=== PATIENT | male | born 1955 | race Caucasian/White ===

== ENCOUNTER 2017-04-05 11:31 | Inpatient (IN) | payer OTHER ==
[~2017-04-05] VITALS: Ht 165.1 cm; Wt 95.0 kg
[2017-04-05] MEDS ORDERED: NITROGLYCERIN 2% 1 GM OINT PKT TD STA (12:20)
[2017-04-05] MEDS ORDERED: ASPIRIN 81 MG TAB PO STA (12:20)
--- NOTE | 2017-04-05 12:20 | ERD ---
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 Patient has history of hypertension hyperlipidemia and diabetes. He presents from primary care physician for chest pain. He describes chest pain on and off for 8 days however over the last several days it has been exertional it is central and pressure-like and only 1 out of 10 currently. He did describe some mild radiation to the jaw but no radiation to the back or upper extremities. He denies any fevers chills or cough, no pleuritic pain or calf swelling. ROS All systems reviewed and are negative except as per history of present illness. Medications Home Meds Reported Medications Ibuprofen* (Advil*) 200 Mg Capsule, 200 MG PO Q6H Y for PAIN, CAP 04/05/17 Gemfibrozil* (Gemfibrozil*) 600 Mg Tablet, 600 MG PO BID, TAB 04/05/17 Dexter-3 Acid Ethyl Esters (Lovaza) 1 Gm Capsule, 1 GM PO BID, CAP 04/05/17 Naproxen* (Naproxen*) 220 Mg Capsule, 220 MG PO BID Y for PAIN AND/OR INFLAMMATION, CAP 04/05/17 Insulin Glargine* (Lantus*) 100 Unit/Ml Soln, 30 UNIT SC DAILY, #1 VIAL 04/05/17 Ferrous Sulfate* (Ferrous Sulfate*) 325 Mg Tabec, 325 MG PO DAILY, TAB 04/05/17 Aspirin (Low Dose Aspirin) 81 Mg Tablet.dr, 81 MG PO DAILY, #30 TAB 04/05/17 Atorvastatin Calcium* (Atorvastatin Calcium*) 20 Mg Tablet, 20 MG PO QHS, #30 TAB 04/05/17 Amlodipine Besylate* (Amlodipine Besylate*) 10 Mg Tablet, 10 MG PO DAILY, #30 TAB 04/05/17 Gabapentin* (Gabapentin*) 300 Mg Capsule, 300 MG PO BID, #60 CAP 04/05/17 Metformin Hcl* (Metformin Hcl*) 1,000 Mg Tablet, 1000 MG PO WITH BREAKFAST DINNE , #30 TAB 04/05/17 Lisinopril* (Lisinopril*) 40 Mg Tablet, 40 MG PO DAILY, #30 TAB 04/05/17 Discontinued Reported Medications Ibuprofen* (Motrin*) 800 Mg Tab, 800 MG PO Q8 Y for PAIN, TAB 04/05/17 Gabapentin* (Gabapentin*) 600 Mg Tablet, 600 MG PO DAILY, #60 TAB 04/05/17 Allergies Allergies: Coded Allergies: No Known Allergy (Unverified , 04/05/17) PMhx/Soc History of Surgery: No Anesthesia Reaction: No Hx Neurological Disorder: No Hx Respiratory Disorders: No Hx Cardiac Disorders: Yes (htn) Hx Psychiatric Problems: No Hx Miscellaneous Medical Probl: Yes (high cholesterol,dm) Hx Alcohol Use: No Hx Substance Use: No Hx Tobacco Use: No Smoking Status: Never smoker FmHx Family History: coronary disease, diabetes Physical Exam Vitals Vital Signs Date Time Temp Pulse Resp B/P Pulse Ox O2 Delivery O2 Flow Rate FiO2 04/05/17 12:46 95 18 141/78 96 Room Air 04/05/17 12:06 Nasal Cannula 2 04/05/17 11:34 100.1 98 18 117/82 100 Physical Exam General: Well developed, well nourished, no acute distress Head: Normocephalic, atraumatic. Eyes: Pupils equally reactive, EOM intact ENT: Moist mucous membranes Neck: Supple, no lymphadenopathy Respiratory: Lungs clear bilaterally, no distress Cardiovascular: RRR, no murmurs, rubs, or gallops Abdominal: Soft, non-tender, non-distended, no peritoneal signs : Deferred MSK: No edema, no unilateral swelling, 5/5 strength no pulse deficits Neurologic: Alert and oriented, moving all extremities, normal speech, no focal weakness, no cerebellar signs Skin: No rash Psych: Normal mood Result Diagram: 04/05/17 1207 04/05/17 1207 Results 24 hrs Laboratory Tests Test 04/05/17 12:07 White Blood Count 9.910^3/ul Red Blood Count 3.6410^6/ul Hemoglobin 10.9g/dl Hematocrit 31.6% Mean Corpuscular Volume 86.8fl Mean Corpuscular Hemoglobin 29.9pg Mean Corpuscular Hemoglobin Concent 34.5g/dl Red Cell Distribution Width 12.4% Platelet Count 27979^3/UL Mean Platelet Volume 10.6fl Neutrophils % 71.5% Lymphocytes % 18.4% Monocytes % 6.1% Eosinophils % 3.1% Basophils % 0.5% Nucleated Red Blood Cells % 0.0/100WBC Neutrophils # 7.110^3/ul Lymphocytes # 1.810^3/ul Monocytes # 0.610^3/ul Eosinophils # 0.310^3/ul Basophils # 0.110^3/ul Nucleated Red Blood Cells # 0.010^3/ul Sodium Level 137mmol/L Potassium Level 4.1mmol/L Chloride Level 105mmol/L Carbon Dioxide Level 24mmol/L Anion Gap 12 Blood Urea Nitrogen 34mg/dl Creatinine 1.95mg/dl Glucose Level 274mg/dl Calcium Level 8.7mg/dl Troponin I 2.360ng/ml Current Medications Medications (Trade) Dose Ordered Sig/Jordi Route PRN Reason Start Time Stop Time Status Last Admin Dose Admin Aspirin (Aspirin) 162 mg ONCE STAT PO 04/05/17 12:20 04/05/17 12:21 DC 04/05/17 12:47 Nitroglycerin (Nitroglycerin 2% Oint) 1 inch ONCE STAT TD 04/05/17 12:20 04/05/17 12:21 DC 04/05/17 12:47 Ondansetron HCl (Zofran Inj) 4 mg ER BRIDGE PRN IV NAUSEA AND/OR VOMITING 04/05/17 13:30 04/06/17 13:29 Acetaminophen (Tylenol Tab) 650 mg ER BRIDGE PRN PO MILD PAIN/FEVER 04/05/17 13:30 04/06/17 13:29 Procedures/MDM EKG, MONITORS, & DIAGNOSTIC IMAGING: EKG: I reviewed and interpreted a 12-lead EKG. Rhythm: Normal sinus rhythm Ectopy: None Intervals: No abnormalities ST segments: No elevations or depressions T waves: No contiguous inversions Repeat EKG: EKG: I reviewed and interpreted a 12-lead EKG. Rhythm: Normal sinus rhythm Ectopy: None Intervals: No abnormalities ST segments: No elevations or depressions T waves: No contiguous inversions Chest x-ray: I reviewed and interpreted a 1 view of the chest Mediastinum: No enlargement Cardiac silhouette: No cardiomegaly Airspace: Clear lung alvarenga bilaterally without evidence of pneumothorax Bones: No evidence of fracture LAB INTERPRETATION: Mild renal insufficiency, troponin elevation of 2 MEDICAL DECISION MAKING: The patient's history, physical exam and clinical presentation is concerning for possible cardiogenic etiology and acute coronary syndrome. Given the patient's risk factor profile I believe a cardiac workup is necessary. The patient is pain-free in the emergency room. No migratory pain or pleuritic plane to suggest dissection or PE. Based on the patient's clinical exam and history and risk factors, I have a much lower clinical concern for pulmonary embolism, acute aortic dissection, pneumothorax, pneumonia, cardiac tamponade HEART Score: 7 MACE Rate: Upwards of 65% Shared Decision Making: We had a conversation regarding risk stratification, MACE rate, and the risks, benefits, alternatives of disposition planning options. Disposition planning: Given the patient's profile I strongly recommend hospitalization to rule out ACS, patient is agreeable. ER COURSE: Aspirin completed. Nitroglycerin paste applied. Patient's troponin was significantly elevated. The patient has no active chest pain and his repeat EKG is unchanged. Mild renal insufficiency may be contributing to this. However, given the patient's description of chest pain this is consistent with non-ST elevation myocardial infarction. The patient has no active chest pain and no dynamic EKG changes therefore no indication for emergent Photographer Still activation. Inpatient hospitalization is appropriate. Aspirin and nitroglycerin have been given. I kept the patient and/or family informed of laboratory and diagnostic imaging results throughout the emergency room course. DISPOSITION PLAN: Telemetry admission for management of chest pain to rule out acute coronary syndrome, serial enzymes, risk stratification and consideration of provocative testing CONSULTATION: Accepting care team and consultations: I discussed the current laboratory data, diagnostic imaging and emergency care provided. Admitting team: Dr. Quintana Admitting team indication: Insurance directed Departure Diagnosis: Primary Impression: Chest pain Chest pain type: unspecified Qualified Code: R07.9 - Chest pain, unspecified type Additional Impressions: NSTEMI (non-ST elevated myocardial infarction) Renal insufficiency Condition: Stable KATERINA COLLIER MD Apr 05, 2017 12:20
--- NOTE | 2017-04-05 12:22 | RADRPT ---
PROCEDURE: XR Chest. CLINICAL INDICATION: Chest Pain. TECHNIQUE: Single frontal view of the chest was obtained. COMPARISON: None. FINDINGS: The aortic arch is calcified. There is moderate cardiomegaly. There is subsegmental atelectasis and / or infiltrate at the medial aspect of the right lung base wi th obscuration of the left hemidiaphragm. There is no significant pleural effusion or pneumothorax. IMPRESSION: Subsegmental atelectasis and / or infiltrate at the medial aspect of the right lung base. Moderate cardiomegaly. Aortic atherosclerosis. RPTAT: EE Physician Cameron Date Time Electronically viewed and signed by Benjy Almazan Physician on 04/05/2017 12:22 RA/
[2017-04-05] MEDS ORDERED: LISI40TA9 PO (12:31)
[2017-04-05] MEDS ORDERED: METF1000 PO (12:31)
[2017-04-05] MEDS ORDERED: GABA-526 PO (12:32)
[2017-04-05] MEDS ORDERED: GABA300C16 PO (12:33)
[2017-04-05] MEDS ORDERED: AMLO-147 PO (12:33)
[2017-04-05] MEDS ORDERED: ATOR20TA38 PO (12:33)
[2017-04-05] MEDS ORDERED: IBUP800T25 PO (12:34)
[2017-04-05] MEDS ORDERED: ASPI-664 PO (12:34)
[2017-04-05] MEDS ORDERED: FER325 PO (12:35)
[2017-04-05] MEDS ORDERED: LANT3I SC (12:38)
[2017-04-05] MEDS ORDERED: NAPR220C PO (12:38)
[2017-04-05] MEDS ORDERED: OMEG1CAP2 PO (12:39)
[2017-04-05] MEDS ORDERED: IBUP200C11 PO (12:40)
[2017-04-05] MEDS ORDERED: GEMF600T60 PO (12:40)
[2017-04-05] MEDS ORDERED: ACETAMINOPHEN 325 MG TAB PO PRN (13:30)
[2017-04-05] MEDS ORDERED: ONDANSETRON 4 MG INJ IV PRN ×2 (13:30→14:30)
--- NOTE | 2017-04-05 14:20 | HP ---
Date/Time of Note Date/Time of Note DATE: 04/05/17 TIME: 14:16 Assessment/Plan VTE Prophylaxis VTE Prophylaxis Intervention: heparin Lines/Catheters IV Catheter Type (from Nrs): Saline Lock Assessment/Plan Chief Complaint/Hosp Course 1. NSTEMI Consult cardiology Heparin drip Pain control with morphine Nitro glycerin as needed for chest pain Lipitor 2. Diabetes Continue home insulin Check A1c 3. Dyslipidemia Continue statin 4. Morbid obesity Lifestyle changes to be advised 5. Hypertension Coreg Prophylaxis: Heparin Problems: HPI/ROS Admit Date/Time Admit Date/Time April 05, 2017 Hx of Present Illness Patient is 61-year-old male with a history of insulin-dependent diabetes, hypertension and dyslipidemia as well as morbid obesity. Patient presents with 8 days of pressure-like chest pain, pain is exacerbated by activity and relieved with rest, patient states that the pain was radiating to his whole head today. Patient has a reported history of coronary disease or CHF. In the ED patient's troponin was mildly elevated at 2, EKG showed no evidence of ischemia. ROS Constitutional: improved, no complaints Eyes: no complaints ENT: no complaints Respiratory: no complaints Cardiovascular: chest pain Gastrointestinal: no complaints Genitourinary: no complaints Musculoskeletal: no complaints Skin: no complaints Neurologic: no complaints Endocrine: no complaints Lymphatic: no complaints Psychological: nl mood/affect, no complaints Immunologic: no complaints PMH/Family/Social Past Medical History Insulin dependent diabetes, hypertension, dyslipidemia, morbid obesity Past Surgical History Past Surgical Hx: no surgical history Family History Significant Family History: no pertinent family hx Social History Alcohol Use: other (History of alcohol abuse) Smoking Status: Former smoker Drug Use: none Exam/Review of Systems Vital Signs Vitals Vital Signs Date Time Temp Pulse Resp B/P Pulse Ox O2 Delivery O2 Flow Rate FiO2 04/05/17 12:46 95 18 141/78 96 Room Air 04/05/17 12:06 2 04/05/17 11:34 100.1 Exam Constitutional: alert, oriented Head: normocephalic Respiratory: clear to auscultation Cardiovascular: regular rate and rhythm Gastrointestinal: soft, No distended Musculoskeletal: nl extremities to inspection Labs Result Diagram: 04/05/17 1207 04/05/17 1207 MARVIN DALTON Apr 05, 2017 14:20
[2017-04-05] MEDS ORDERED: morphine 4 MG/ML VIAL IV PRN (14:30)
[2017-04-05] MEDS ORDERED: MAGNESIUM HYDROXIDE 30ML CUP PO PRN (14:30)
[2017-04-05] MEDS ORDERED: NACL 0.9% 3 ML SYG IV SCH (14:30)
[2017-04-05] MEDS ORDERED: NITROGLYCERIN (SL) 0.4 MG TAB SL PRN (14:30)
[2017-04-05] MEDS ORDERED: ACETAMINOPHEN 650 MG SUPP PR PRN (14:30)
[2017-04-05] MEDS ORDERED: DOCUSATE SODIUM 100 MG CAP PO PRN (14:30)
[2017-04-05] MEDS ORDERED: HEPARIN 1000 UNITS/ML 10 ML INJ IV ONE (15:00)
[2017-04-05] MEDS ORDERED: HEPARIN 1000 UNITS/ML 10 ML INJ IV PRN (15:00)
[2017-04-05] MEDS: HEPARIN 25000 UNITS/250 ML 250 ML IV SCH ×2 (15:21→23:47)
[2017-04-05 15:45] VITALS: Ht 165.1 cm; Wt 95.0 kg
[2017-04-05] MEDS ORDERED: GLUCOSE GEL 15 GRAM TUBE PO PRN ×2 (16:00)
[2017-04-05] MEDS ORDERED: GLUCOSE GEL 15 GRAM TUBE BUCCAL PRN (16:00)
[2017-04-05] MEDS ORDERED: DEXTROSE 50% 50 ML SYRINGE IV PRN ×2 (16:00)
[2017-04-05] MEDS ORDERED: GLUCAGON 1 MG INJ IM PRN (16:00)
[2017-04-05] MEDS: DEXTROSE 5%-0.45% NACL 1,000 ML IV SCH (16:07)
[2017-04-05 16:29] VITALS: PULSE 82
[2017-04-05 17:19] VITALS: BP 132/66; RESP 18
[2017-04-05] MEDS: INSULIN ASPART [NOVOLOG] 3 ML PEN SC SCH ×2 (18:30→20:39)
--- NOTE | 2017-04-05 19:01 | CONS ---
Date/Time of Note Date/Time of Note DATE: 04/05/17 TIME: 18:56 Assessment/Plan Assessment/Plan Chief Complaint/Hosp Course Assessment: NSTEMI Acute kidney injury vs chronic kidney disease Hypertension Dyslipidemia Insulin-dependent diabetes mellitus Recommendations: -continue heparin drip -continue aspirin at 325mg daily -continue atorvastatin 80mg daily, follow up lipid panel -continue carvedilol 6.25mg BID -hold lisinopril due to renal failure -follow up transthoracic echocardiogram -arrange for coronary angiography Problems: Consultation Date/Type/Reason Admit Date/Time April 05, 2017 Type of Consultation: Cardiology Reason for Consultation chest pain Hx of Present Illness The patient is a 61 year-old male who presented with chest pain. He describes eight days of intermittent chest pressure that is exacerbated by exertion. He denies a prior history of heart disease. EKG showed sinus rhythm and nonspecific T wave flattening in inferior and lateral leads. Initial troponin elevated at 2.36. 14 point review of systems negative other than per HPI. Past Medical History Medical History: diabetes, high cholesterol, hypertension Past Surgical History Past Surgical Hx: no surgical history Family History Significant Family History: no pertinent family hx Social History Alcohol Use: sober Smoking Status: Former smoker Drug Use: none Exam/Review of Systems Vital Signs Vitals Vital Signs Date Time Temp Pulse Resp B/P Pulse Ox O2 Delivery O2 Flow Rate FiO2 04/05/17 17:19 98.0 78 18 132/66 98 04/05/17 16:36 Nasal Cannula 2.0 Exam Constitutional: alert, obese, well developed Psych: nl mood/affect, no complaints Head: normocephalic Eyes: nl conjunctiva, nl lids ENMT: nl external ears & nose, nl nasal mucosa & septum Neck: non-tender, supple, No jvd Respiratory: diminished breath sounds, No wheezing Cardiovascular: regular rate and rhythm, No murmurs/extra sounds Gastrointestinal: non-tender, soft Musculoskeletal: nl extremities to inspection, No joint tenderness Extremities: No clubbing, No cyanosis, No edema Neurological: nl mental status, nl speech Skin: nl turgor Results Result Diagram: 04/05/17 1207 04/05/17 1207 Results 24 hrs Laboratory Tests Test 04/05/17 12:00 04/05/17 12:07 04/05/17 17:15 Prothrombin Time 12.6 Prothrombin Time Ratio 1.0 INR International Normalized Ratio 0.94 Activated Partial Thromboplast Time 31.8 White Blood Count 9.9 Red Blood Count 3.64 L Hemoglobin 10.9 L Hematocrit 31.6 L Mean Corpuscular Volume 86.8 Mean Corpuscular Hemoglobin 29.9 Mean Corpuscular Hemoglobin Concent 34.5 Red Cell Distribution Width 12.4 Platelet Count 230 Mean Platelet Volume 10.6 H Neutrophils % 71.5 Lymphocytes % 18.4 Monocytes % 6.1 Eosinophils % 3.1 Basophils % 0.5 Nucleated Red Blood Cells % 0.0 Neutrophils # 7.1 Lymphocytes # 1.8 Monocytes # 0.6 Eosinophils # 0.3 Basophils # 0.1 Nucleated Red Blood Cells # 0.0 Sodium Level 137 Potassium Level 4.1 Chloride Level 105 Carbon Dioxide Level 24 Anion Gap 12 Blood Urea Nitrogen 34 H Creatinine 1.95 H Glucose Level 274 H Calcium Level 8.7 Troponin I 2.360 *H Bedside Glucose 185 Medications Medications Current Medications Dextrose/Sodium Chloride (D5-1/2ns) 1,000 ml @ 50 mls/hr Q20H IV Last administered on 04/05/17t 16:07; Admin Dose 50 MLS/HR; Start 04/05/17 at 14:20 Ondansetron HCl (Zofran Inj) 4 mg Q6H PRN IV NAUSEA AND/OR VOMITING; Start at 14:30 Acetaminophen (Tylenol Supp) 650 mg Q6H PRN [place] PAIN LEVEL 1-3 OR FEVER; Start 04/05/17 at 14:30 Docusate Sodium (Colace) 100 mg Q12H PRN PO CONSTIPATION; Start 04/05/17 at 14 :30 Magnesium Hydroxide (Milk Of Mag) 30 ml DAILY PRN PO CONSTIPATION; Start 04/05 at 14:30 Zolpidem Tartrate (Ambien) 5 mg QHS PRN PO SLEEP; Start 04/05/17 at 14:30 Carvedilol (Coreg) 6.25 mg BID PO ; Start 04/05/17 at 21:00 Nitroglycerin (Nitroglycerin (Sl Tab) 0.4 Mg) 1 tab Q5M PRN SL CHEST PAIN; Start 04/05/17 at 14:30 Morphine Sulfate (morphine) 2 mg Q2H PRN IV PAIN LEVEL 4-6; Start 04/05/17 at 14:30 Morphine Sulfate (morphine) 4 mg Q2H PRN IV PAIN LEVEL 7-10; Start 04/05/17 at 14:30 Lisinopril (Zestril) 40 mg DAILY PO ; Start 04/06/17 at 09:00 Diagnostic Test (Pha) (Accu-Chek) 1 ea 02 XX ; Start 04/06/17 at 02:00 Insulin Glargine (Lantus) 14 unit DAILY@08 SC ; Start 04/06/17 at 08:00 Insulin Aspart (Novolog Insulin Pen) NOVOLOG *MILD* ALGORI... Q4 SC Last administered on 04/05/17t 18:30; Admin Dose 2 UNIT; Start 04/05/17 at 17:00 Atorvastatin Calcium (Lipitor) 80 mg HS PO ; Start 04/05/17 at 21:00 Miscellaneous Information 1 ea NOTE XX ; Start 04/05/17 at 16:00 Glucose (Glutose) 15 gm Q15M PRN PO DECREASED GLUCOSE; Start 04/05/17 at 16:00 Glucose (Glutose) 22.5 gm Q15M PRN PO DECREASED GLUCOSE; Start 04/05/17 at 16: 00 Dextrose (D50w Syringe) 25 ml Q15M PRN IV DECREASED GLUCOSE; Start 04/05/17 at 16:00 Dextrose (D50w Syringe) 50 ml Q15M PRN IV DECREASED GLUCOSE; Start 04/05/17 at 16:00 Glucagon (Glucagen) 1 mg Q15M PRN IM DECREASED GLUCOSE; Start 04/05/17 at 16: 00 Glucose (Glutose) 15 gm Q15M PRN BUCCAL DECREASED GLUCOSE; Start 04/05/17 at 16:00 JAKI GRADY MD Apr 05, 2017 19:01
[2017-04-05 19:43] VITALS: BP 129/80; RESP 16
[2017-04-05 20:35] VITALS: PULSE 86
[2017-04-05] MEDS ORDERED: ATORVASTATIN 80 MG TAB PO SCH (21:00)
[2017-04-06] VITALS (11 sets, daily range): BP systolic 127–143; BP diastolic 72–85; PULSE 62–88; RESP 16–18
[2017-04-06] MEDS: INSULIN ASPART [NOVOLOG] 3 ML PEN SC SCH ×7 (01:00→21:00)
[2017-04-06] MEDS: ACCU-CHEK XX SCH (02:00)
[2017-04-06] MEDS: morphine 2 MG INJ IV PRN (04:55)
[2017-04-06] MEDS: HEPARIN 25000 UNITS/250 ML 250 ML IV SCH ×3 (07:06→21:37)
[2017-04-06] MEDS ORDERED: INSULIN GLARGINE [LANtus] 3 ML PEN SC SCH (08:00)
[2017-04-06] MEDS: ASPIRIN (EC) 325 MG TAB PO SCH (08:24)
[2017-04-06] MEDS ORDERED: LISINOPRIL 20 MG TAB PO SCH (09:00)
[2017-04-06] MEDS: DEXTROSE 5%-0.45% NACL 1,000 ML IV SCH (10:02)
[2017-04-06] MEDS ORDERED: MAGNESIUM SULFATE 3 GM in SOD CHLORIDE 0.9% 100 ML IVPB ONE (12:00)
--- NOTE | 2017-04-06 19:01 | PN ---
Date/Time of Note Date/Time of Note DATE: 04/06/17 TIME: 18:58 Assessment/Plan VTE Prophylaxis VTE Prophylaxis Intervention: heparin Lines/Catheters IV Catheter Type (from Nrs): Peripheral IV Urinary Cath still in place: No Assessment/Plan Chief Complaint/Hosp Course 1. NSTEMI persistently elevated troponins Cardiology consultation appreciated, patient will need a heart cath Continue heparin drip Pain control with morphine Nitro glycerin as needed for chest pain Lipitor 2. Diabetes Have modified patient's home insulin regimen as it does not appear that he has mealtime dosing, continue Lantus 20 and NovoLog with meals A1c at 8.5 3. Dyslipidemia Continue statin 4. Morbid obesity Lifestyle changes to be advised 5. Hypertension Coreg Prophylaxis: Heparin Problems: Subjective 24 Hr Interval Summary Constitutional: no complaints Exam/Review of Systems Vital Signs Vitals Vital Signs Date Time Temp Pulse Resp B/P Pulse Ox O2 Delivery O2 Flow Rate FiO2 04/06/17 18:46 97.5 75 18 140/85 98 04/06/17 16:59 2.0 04/06/17 08:16 Nasal Cannula Intake and Output 04/05/17 04/05/17 04/06/17 15:00 23:00 07:00 Intake Total 100 ml 950 ml Output Total 700 ml Balance 100 ml 250 ml Exam Constitutional: alert, oriented Respiratory: clear to auscultation Cardiovascular: regular rate and rhythm Gastrointestinal: soft, No distended Musculoskeletal: nl extremities to inspection Results Result Diagram: 04/06/17 0540 04/06/17 0540 Results 24 hrs Laboratory Tests Test 04/05/17 19:37 04/05/17 22:13 04/06/17 00:29 04/06/17 02:33 Bedside Glucose 151 220 Activated Partial Thromboplast Time 41.6 H Creatine Kinase 582 H Creatine Kinase Index 0.4 Creatinine Kinase MB (Mass) 2.53 H Troponin I 2.540 *H Test 04/06/17 04:58 04/06/17 05:40 04/06/17 05:42 04/06/17 07:42 Bedside Glucose 200 195 White Blood Count 8.4 Red Blood Count 3.18 L Hemoglobin 9.3 L Hematocrit 28.1 L Mean Corpuscular Volume 88.4 Mean Corpuscular Hemoglobin 29.2 Mean Corpuscular Hemoglobin Concent 33.1 Red Cell Distribution Width 12.7 Platelet Count 197 Mean Platelet Volume 11.3 H Neutrophils % 63.2 Lymphocytes % 25.1 Monocytes % 6.2 Eosinophils % 4.4 Basophils % 0.7 Nucleated Red Blood Cells % 0.0 Neutrophils # 5.3 Lymphocytes # 2.1 Monocytes # 0.5 Eosinophils # 0.4 Basophils # 0.1 Nucleated Red Blood Cells # 0.0 Sodium Level 136 Potassium Level 3.9 Chloride Level 109 Carbon Dioxide Level 23 Anion Gap 8 Blood Urea Nitrogen 32 H Creatinine 1.90 H Glucose Level 188 Hemoglobin A1c 8.5 H Calcium Level 8.1 L Phosphorus Level 3.8 Magnesium Level 1.6 L Total Bilirubin 0.2 Direct Bilirubin 0.00 Indirect Bilirubin 0.2 Aspartate Amino Transf (AST/SGOT) 33 Alanine Aminotransferase (ALT/SGPT) 36 Alkaline Phosphatase 77 Total Protein 5.9 L Albumin 2.7 L Globulin 3.20 Albumin/Globulin Ratio 0.84 Triglycerides Level 220 H Cholesterol Level 189 LDL Cholesterol, Calculated 95 HDL Cholesterol 50 Cholesterol/HDL Ratio 3.7 Activated Partial Thromboplast Time 78.4 *H Test 04/06/17 13:07 04/06/17 13:40 04/06/17 17:08 Bedside Glucose 228 H 197 Activated Partial Thromboplast Time 62.6 H Medications Medications Current Medications Ondansetron HCl (Zofran Inj) 4 mg Q6H PRN IV NAUSEA AND/OR VOMITING; Start at 14:30 Acetaminophen (Tylenol Supp) 650 mg Q6H PRN [place] PAIN LEVEL 1-3 OR FEVER; Start 04/05/17 at 14:30 Docusate Sodium (Colace) 100 mg Q12H PRN PO CONSTIPATION; Start 04/05/17 at 14 :30 Magnesium Hydroxide (Milk Of Mag) 30 ml DAILY PRN PO CONSTIPATION; Start 04/05 at 14:30 Zolpidem Tartrate (Ambien) 5 mg QHS PRN PO SLEEP; Start 04/05/17 at 14:30 Carvedilol (Coreg) 6.25 mg BID PO Last administered on 04/06/17t 08:24; Admin Dose 6.25 MG; Start 04/05/17 at 21:00 Nitroglycerin (Nitroglycerin (Sl Tab) 0.4 Mg) 1 tab Q5M PRN SL CHEST PAIN; Start 04/05/17 at 14:30 Morphine Sulfate (morphine) 2 mg Q2H PRN IV PAIN LEVEL 4-6 Last administered on 04/06/17 04:55; Admin Dose 2 MG; Start 04/05/17 at 14:30 Morphine Sulfate (morphine) 4 mg Q2H PRN IV PAIN LEVEL 7-10; Start 04/05/17 at 14:30 Diagnostic Test (Pha) (Accu-Chek) 1 ea 02 XX ; Start 04/06/17 at 02:00 Atorvastatin Calcium (Lipitor) 80 mg HS PO Last administered on 04/05/17 20: 36; Admin Dose 80 MG; Start 04/05/17 at 21:00 Miscellaneous Information 1 ea NOTE XX ; Start 04/05/17 at 16:00 Glucose (Glutose) 15 gm Q15M PRN PO DECREASED GLUCOSE; Start 04/05/17 at 16:00 Glucose (Glutose) 22.5 gm Q15M PRN PO DECREASED GLUCOSE; Start 04/05/17 at 16: 00 Dextrose (D50w Syringe) 25 ml Q15M PRN IV DECREASED GLUCOSE; Start 04/05/17 at 16:00 Dextrose (D50w Syringe) 50 ml Q15M PRN IV DECREASED GLUCOSE; Start 04/05/17 at 16:00 Glucagon (Glucagen) 1 mg Q15M PRN IM DECREASED GLUCOSE; Start 04/05/17 at 16: 00 Glucose (Glutose) 15 gm Q15M PRN BUCCAL DECREASED GLUCOSE; Start 04/05/17 at 16:00 Aspirin (Ecotrin) 325 mg DAILY PO Last administered on 04/06/17 08:24; Admin Dose 325 MG; Start 04/06/17 at 09:00 Insulin Glargine (Lantus) 20 unit DAILY@08 SC ; Start 04/07/17 at 08:00 MARVIN DALTON Apr 06, 2017 19:01
--- NOTE | 2017-04-06 19:25 | CONS ---
Date/Time of Note Date/Time of Note DATE: 04/06/17 TIME: 19:23 Assessment/Plan Assessment/Plan Chief Complaint/Hosp Course Assessment: NSTEMI Acute kidney injury vs chronic kidney disease Hypertension Dyslipidemia Insulin-dependent diabetes mellitus Recommendations: -continue heparin drip -continue aspirin 325mg daily -decrease atorvastatin to 40mg daily -continue carvedilol 6.25mg BID -hold lisinopril due to renal failure -follow up transthoracic echocardiogram -coronary angiography tomorrow Problems: Consultation Date/Type/Reason Admit Date/Time Apr 05, 2017 at 13:23 Initial Consult Date Type of Consultation: Cardiology 24 HR Interval Summary Free Text/Dictation No acute events. Detailed Summary Additional Comments 14 point review of systems without changes. Exam/Review of Systems Vital Signs Vitals Vital Signs Date Time Temp Pulse Resp B/P Pulse Ox O2 Delivery O2 Flow Rate FiO2 04/06/17 18:46 97.5 75 18 140/85 98 04/06/17 16:59 2.0 04/06/17 08:16 Nasal Cannula Intake and Output 04/05/17 04/05/17 04/06/17 15:00 23:00 07:00 Intake Total 100 ml 950 ml Output Total 700 ml Balance 100 ml 250 ml Exam Constitutional: alert, obese, well developed Psych: nl mood/affect, no complaints Head: normocephalic Eyes: nl conjunctiva, nl lids ENMT: nl external ears & nose, nl nasal mucosa & septum Neck: non-tender, supple, No jvd Respiratory: diminished breath sounds, No wheezing Cardiovascular: regular rate and rhythm, No murmurs/extra sounds Gastrointestinal: non-tender, soft Musculoskeletal: nl extremities to inspection, No joint tenderness Extremities: No clubbing, No cyanosis, No edema Neurological: nl mental status, nl speech Skin: nl turgor Results Result Diagram: 04/06/17 0540 04/06/17 0540 Results 24 hrs Laboratory Tests Test 04/05/17 19:37 04/05/17 22:13 04/06/17 00:29 04/06/17 02:33 Bedside Glucose 151 220 Activated Partial Thromboplast Time 41.6 H Creatine Kinase 582 H Creatine Kinase Index 0.4 Creatinine Kinase MB (Mass) 2.53 H Troponin I 2.540 *H Test 04/06/17 04:58 04/06/17 05:40 04/06/17 05:42 04/06/17 07:42 Bedside Glucose 200 195 White Blood Count 8.4 Red Blood Count 3.18 L Hemoglobin 9.3 L Hematocrit 28.1 L Mean Corpuscular Volume 88.4 Mean Corpuscular Hemoglobin 29.2 Mean Corpuscular Hemoglobin Concent 33.1 Red Cell Distribution Width 12.7 Platelet Count 197 Mean Platelet Volume 11.3 H Neutrophils % 63.2 Lymphocytes % 25.1 Monocytes % 6.2 Eosinophils % 4.4 Basophils % 0.7 Nucleated Red Blood Cells % 0.0 Neutrophils # 5.3 Lymphocytes # 2.1 Monocytes # 0.5 Eosinophils # 0.4 Basophils # 0.1 Nucleated Red Blood Cells # 0.0 Sodium Level 136 Potassium Level 3.9 Chloride Level 109 Carbon Dioxide Level 23 Anion Gap 8 Blood Urea Nitrogen 32 H Creatinine 1.90 H Glucose Level 188 Hemoglobin A1c 8.5 H Calcium Level 8.1 L Phosphorus Level 3.8 Magnesium Level 1.6 L Total Bilirubin 0.2 Direct Bilirubin 0.00 Indirect Bilirubin 0.2 Aspartate Amino Transf (AST/SGOT) 33 Alanine Aminotransferase (ALT/SGPT) 36 Alkaline Phosphatase 77 Total Protein 5.9 L Albumin 2.7 L Globulin 3.20 Albumin/Globulin Ratio 0.84 Triglycerides Level 220 H Cholesterol Level 189 LDL Cholesterol, Calculated 95 HDL Cholesterol 50 Cholesterol/HDL Ratio 3.7 Activated Partial Thromboplast Time 78.4 *H Test 04/06/17 13:07 04/06/17 13:40 04/06/17 17:08 Bedside Glucose 228 H 197 Activated Partial Thromboplast Time 62.6 H Medications Medications Current Medications Ondansetron HCl (Zofran Inj) 4 mg Q6H PRN IV NAUSEA AND/OR VOMITING; Start at 14:30 Acetaminophen (Tylenol Supp) 650 mg Q6H PRN [place] PAIN LEVEL 1-3 OR FEVER; Start 04/05/17 at 14:30 Docusate Sodium (Colace) 100 mg Q12H PRN PO CONSTIPATION; Start 04/05/17 at 14 :30 Magnesium Hydroxide (Milk Of Mag) 30 ml DAILY PRN PO CONSTIPATION; Start 04/05 at 14:30 Zolpidem Tartrate (Ambien) 5 mg QHS PRN PO SLEEP; Start 04/05/17 at 14:30 Carvedilol (Coreg) 6.25 mg BID PO Last administered on 04/06/17 08:24; Admin Dose 6.25 MG; Start 04/05/17 at 21:00 Nitroglycerin (Nitroglycerin (Sl Tab) 0.4 Mg) 1 tab Q5M PRN SL CHEST PAIN; Start 04/05/17 at 14:30 Morphine Sulfate (morphine) 2 mg Q2H PRN IV PAIN LEVEL 4-6 Last administered on 04/06/17 04:55; Admin Dose 2 MG; Start 04/05/17 at 14:30 Morphine Sulfate (morphine) 4 mg Q2H PRN IV PAIN LEVEL 7-10; Start 04/05/17 at 14:30 Diagnostic Test (Pha) (Accu-Chek) 1 ea 02 XX ; Start 04/06/17 at 02:00 Atorvastatin Calcium (Lipitor) 80 mg HS PO Last administered on 04/05/17 20: 36; Admin Dose 80 MG; Start 04/05/17 at 21:00 Miscellaneous Information 1 ea NOTE XX ; Start 04/05/17 at 16:00 Glucose (Glutose) 15 gm Q15M PRN PO DECREASED GLUCOSE; Start 04/05/17 at 16:00 Glucose (Glutose) 22.5 gm Q15M PRN PO DECREASED GLUCOSE; Start 04/05/17 at 16: 00 Dextrose (D50w Syringe) 25 ml Q15M PRN IV DECREASED GLUCOSE; Start 04/05/17 at 16:00 Dextrose (D50w Syringe) 50 ml Q15M PRN IV DECREASED GLUCOSE; Start 04/05/17 at 16:00 Glucagon (Glucagen) 1 mg Q15M PRN IM DECREASED GLUCOSE; Start 04/05/17 at 16: 00 Glucose (Glutose) 15 gm Q15M PRN BUCCAL DECREASED GLUCOSE; Start 04/05/17 at 16:00 Aspirin (Ecotrin) 325 mg DAILY PO Last administered on 04/06/17 08:24; Admin Dose 325 MG; Start 04/06/17 at 09:00 Insulin Glargine (Lantus) 20 unit DAILY@08 SC ; Start 04/07/17 at 08:00 JAKI GRADY MD Apr 06, 2017 19:25
[2017-04-06] MEDS: ATORVASTATIN 40 MG TAB PO SCH (21:06)
[2017-04-07] VITALS (24 sets, daily range): BP systolic 119–156; BP diastolic 59–86; PULSE 62–96; RESP 11–45
[2017-04-07] MEDS: ACCU-CHEK XX SCH (02:00)
[2017-04-07] MEDS: HEPARIN 25000 UNITS/250 ML 250 ML IV SCH ×2 (05:36→09:58)
[2017-04-07] MEDS: INSULIN GLARGINE [LANtus] 3 ML PEN SC SCH (08:39)
[2017-04-07] MEDS: INSULIN ASPART [NOVOLOG] 3 ML PEN SC SCH ×7 (08:40→21:00)
[2017-04-07] MEDS: ASPIRIN (EC) 325 MG TAB PO SCH (09:00)
[2017-04-07] MEDS: SOD CHLORIDE 0.9% 1,000 ML IV SCH ×2 (11:03→20:35)
[2017-04-07] MEDS ORDERED: HEPARIN 1000 UNITS/ML 10 ML INJ ONE (14:33)
[2017-04-07] MEDS ORDERED: FENTAnyl 50 MCG/ML VIAL ONE (14:33)
[2017-04-07] MEDS ORDERED: MIDAZOLAM 1 MG/ML 2 ML INJ ONE (14:33)
[2017-04-07] MEDS ORDERED: IODIXANOL LOCM 100 ML BTL ONE ×2 (14:33→15:27)
[2017-04-07] MEDS ORDERED: LIDOCAINE 1% (MDV) 20 ML INJ ONE (14:33)
[2017-04-07] MEDS ORDERED: HEPARIN 1000 UNITS/NS (A-LINE) 1,000 ML ONE (14:33)
[2017-04-07] MEDS ORDERED: NITROGLYCERIN (IC) 100 MCG/ML INJ ONE (14:34)
[2017-04-07] MEDS ORDERED: VERAPAMIL 5 MG INJ ONE (14:34)
--- NOTE | 2017-04-07 16:25 | OPR ---
Date/Time of Note Date/Time of Note DATE: 04/07/17 TIME: 16:11 Operative Report Procedure Date: Apr 07, 2017 Preoperative Diagnosis NSTEMI Postoperative Diagnosis NSTEMI, CAD Surgeon see signature line Radiographer Technologist none Anesthesia Type: moderate sedation Estimated Blood Loss: minimal Transfusion none Specimen none Grafts/Implants none Complications none Procedure Description Procedure Date:04/07/2017 Tool And Die Technician/surgeon: Jeffrey Elizabeth MD. Procedures Performed: 1)Left heart catheterization with selective left and right coronary angiography. 2)iFR/FFR of the mid LAD (abnormal iFR 0.53, FFR 0.69 at rest) Pre-operative Diagnosis:NSTEMI, CAD, CKD, DM Post-operative Diagnosis:NSTEMI, CAD, CKD, DM Indications: Description of Procedure: After informed consent, the patient was brought to the cardiac catheterization lab. The procedure site was prepped and draped in usual manner. The patient was premedicated with versed 1mg and fentanyl 25 mcg. 3 mL lidocaine was injected into the right wrist. Next using the posterior wall technique, the 6/ 5 comoran sheath was inserted into the right radial artery. Next using the JL3.5 and Chauncey, selective angiography of the left and right coronary arteries were obtained. Hemodynamics were obtained with the Chauncey. No LV gram due to CKD. The decision was made to proceed with iFR/FFR of the LAD. A JL 3.0 guide was advanced and engaged into the left coronary artery. After appropriate anticoagulation, the [place] iFR angioplasty wire was zeroed, then equalized at the left main, then was advanced past the lesion. iFR was measured at 0.53 and baseline FFR was 0.69 at rest, both positive Next all equipment was removed and hemostasis was achieved by TR band . Findings: Anatomy/Hemodynamics: Left main: normal LAD:mid 60% involving diag 1, distal 40-50% Diagonal1: ostial 70% and diffuse proximal disease Circumflex: nondominant with 20-30% plaquing Obtuse marginal: prox 70%, mid 95% RCA:diffuse 20-30% with distal focal 70-80% PDA:luminal irregularities PLV:luminal irregularities LV angiography:not done due to CKD LV-Ao: no gradient LVEDP: 33 mmHg Contrast used: 75 mL Medications used: Versed 1 Fentanyl 25 Angiomax Equipment used: 6 comoran JL 3.0 guide iFR wire Estimated blood loss<10 mL. Specimen: none Grafts/implants: none Complications: none Assessment: NSTEMI CAD with 3 vessel disease including iFR/FFR positive LAD in a pt with DM and cardiomyopathy (EF ~45% by echo). CABG eval is appropriate. If not a candidate, would be a PCI candidate but would have to be done in a staged manner. CKD Cardiomyopathy: EF ~45% CHF Plan: -CABG eval -If not a candidate for CABG, would be a PCI candidate but would have to be done in a staged manner. -ASA, statin, bet thomas -If not a candidate for CABG, would be a PCI candidate but would have to be done in a staged manner. JEFFREY ELIZABETH Apr 07, 2017 16:25
[2017-04-07] MEDS ORDERED: morphine 2 MG INJ IV PRN (16:30)
[2017-04-07] MEDS: morphine 2 MG INJ IV PRN (16:36)
[2017-04-07] MEDS: ATORVASTATIN 40 MG TAB PO SCH (20:35)
[2017-04-07] MEDS: ZOLPIDEM 5 MG TAB PO PRN (22:37)
[2017-04-07] MEDS: GUAIFENESIN/DM 5ML CUP PO PRN (22:38)
[2017-04-08] VITALS (11 sets, daily range): BP systolic 118–150; BP diastolic 65–86; PULSE 60–85; RESP 16–18
[2017-04-08] MEDS: ACCU-CHEK XX SCH (02:00)
[2017-04-08] MEDS: SOD CHLORIDE 0.9% 1,000 ML IV SCH (06:29)
[2017-04-08] MEDS: ASPIRIN (EC) 325 MG TAB PO SCH (08:10)
[2017-04-08] MEDS: INSULIN GLARGINE [LANtus] 3 ML PEN SC SCH (08:12)
[2017-04-08] MEDS: INSULIN ASPART [NOVOLOG] 3 ML PEN SC SCH ×7 (08:13→20:47)
--- NOTE | 2017-04-08 13:53 | RADRPT ---
Echocardiogram Report Patient Name: FERMÍN PLATT Gender: Male Date: 1955 Study Date: 07-Apr-2017 Coping Machine Assembler: Rissa Bright [facility] Location: [id number] Ref. Physician: MARVIN DALTON Quality: Adequate Procedures: Transthoracic echocardiogram with complete 2D, M-Mode, and doppler examination. Indications: NSTEMI. 2D/M Mode Doppler Measurement Value Normal Ranges Measurement Value Normal Ranges LVIDd 2D 5.3 3.5 - 5.6 cm AV Peak Hugo 1.6 m/sec LVIDs 2D 3.3 2.1 - 4.1 cm AV Peak PG 9.9 mmHg LVPWd 2D 1.0 0.6 - 1.1 cm LVOT Peak Hugo 1.0 m/sec IVSd 2D 1.1 0.6 - 1.1 cm LVOT Peak PG 3.7 mmHg AoR Diam 2D 2.9 2.0 - 3.7 cm MV E Peak Hugo 0.9 m/sec EDV 2D 137.6 cm3 MV A Peak Hugo 1.2 m/sec ESV 2D 34.8 cm3 MV E/A 0.7 LA Dimen 2D 3.4 2.3 - 4.0 cm MV Decel Time 165 msec MV Decel [place] 5 MV E/A 0.7 Findings Left Ventricle: Normal left ventricular cavity size. Normal left ventricular wall thickness. Mild left ventricular systolic dysfunction. Ejection fraction is visually estimated at 4550 %. Tissue Doppler/Mitral Doppler indices are consistent with impaired relaxation (Stage I diastolic dysfunction). These segments of the LV are hypokinetic inferior base segment, inferior mid segment, inferolateral mid segment, inferolateral base and apical lateral segment. Right Ventricle: Normal right ventricular size. Normal right ventricular systolic function. Left Atrium: The left atrium is normal in size. Right Atrium: The right atrium is normal in size. Mitral Valve: Mitral valve leaflets appear mildly thickened. Mild mitral annular calcification. Mild mitral valve regurgitation. Aortic Valve: Normal appearance of the aortic valve. No significant aortic stenosis or insufficiency. Tricuspid Valve: Normal appearance of the tricuspid valve. Unable to obtain RVSP due to minimal presence of tricuspid regurgitation. Pulmonic Valve: Normal pulmonic valve appearance. Pericardium: Normal pericardium with no significant pericardial effusion. Aorta: Normal aortic root. IVC: Normal size and normal respiratory collapse consistent with normal right atrial pressure. Conclusions 1.The left ventricle is normal in size with mildly reduced systolic function. The inferior and inferolateral ledesma are hypokinetic. 2.Estimated left ventricular ejection fraction of 45-50%. Electronically Signed By: Nik Pandya 08-Apr-2017 13:53:05 -0700 Patient Name: FERMÍN PLATT Study Date: 07-Apr-2017 [id number]
--- NOTE | 2017-04-08 13:53 | RADRPT ---
Echocardiogram Report Patient Name: FERMÍN PLATT Gender: Male Date: 1955 Study Date: 07-Apr-2017 Syrup Mixer Assistant: Rissa Bright [facility] Location: [id number] Ref. Physician: MARVIN DALTON Quality: Adequate Procedures: Transthoracic echocardiogram with complete 2D, M-Mode, and doppler examination. Indications: NSTEMI. 2D/M Mode Doppler Measurement Value Normal Ranges Measurement Value Normal Ranges LVIDd 2D 5.3 3.5 - 5.6 cm AV Peak Hugo 1.6 m/sec LVIDs 2D 3.3 2.1 - 4.1 cm AV Peak PG 9.9 mmHg LVPWd 2D 1.0 0.6 - 1.1 cm LVOT Peak Hugo 1.0 m/sec IVSd 2D 1.1 0.6 - 1.1 cm LVOT Peak PG 3.7 mmHg AoR Diam 2D 2.9 2.0 - 3.7 cm MV E Peak Hugo 0.9 m/sec EDV 2D 137.6 cm3 MV A Peak Hugo 1.2 m/sec ESV 2D 34.8 cm3 MV E/A 0.7 LA Dimen 2D 3.4 2.3 - 4.0 cm MV Decel Time 165 msec MV Decel Bound[place] 5 MV E/A 0.7 Findings Left Ventricle: Normal left ventricular cavity size. Normal left ventricular wall thickness. Mild left ventricular systolic dysfunction. Ejection fraction is visually estimated at 4550 %. Tissue Doppler/Mitral Doppler indices are consistent with impaired relaxation (Stage I diastolic dysfunction). These segments of the LV are hypokinetic inferior base segment, inferior mid segment, inferolateral mid segment, inferolateral base and apical lateral segment. Right Ventricle: Normal right ventricular size. Normal right ventricular systolic function. Left Atrium: The left atrium is normal in size. Right Atrium: The right atrium is normal in size. Mitral Valve: Mitral valve leaflets appear mildly thickened. Mild mitral annular calcification. Mild mitral valve regurgitation. Aortic Valve: Normal appearance of the aortic valve. No significant aortic stenosis or insufficiency. Tricuspid Valve: Normal appearance of the tricuspid valve. Unable to obtain RVSP due to minimal presence of tricuspid regurgitation. Pulmonic Valve: Normal pulmonic valve appearance. Pericardium: Normal pericardium with no significant pericardial effusion. Aorta: Normal aortic root. IVC: Normal size and normal respiratory collapse consistent with normal right atrial pressure. Conclusions 1.The left ventricle is normal in size with mildly reduced systolic function. The inferior and inferolateral ledesma are hypokinetic. 2.Estimated left ventricular ejection fraction of 45-50%. Electronically Signed By: Nik Pandya 08-Apr-2017 13:53:05 -0700 Patient Name: FERMÍN PLATT Study Date: 07-Apr-2017 [id number]
--- NOTE | 2017-04-08 16:12 | CONS ---
Date/Time of Note Date/Time of Note DATE: 04/08/17 TIME: 16:09 Assessment/Plan Assessment/Plan Chief Complaint/Hosp Course Assessment: NSTEMI Three-vessel coronary artery disease Ischemic cardiomyopathy - LVEF 45-50% Acute kidney injury vs chronic kidney disease Hypertension Dyslipidemia Insulin-dependent diabetes mellitus Recommendations: -continue aspirin 325mg daily -continue atorvastatin 40mg daily -continue carvedilol 6.25mg BID -hold lisinopril due to renal failure -CT surgery evaluation for CABG Problems: Consultation Date/Type/Reason Admit Date/Time Apr 05, 2017 at 13:23 Type of Consultation: Cardiology 24 HR Interval Summary Free Text/Dictation Coronary angiography yesterday showed three-vessel disease. Awaiting CT surgery evaluation for CABG. Detailed Summary Additional Comments 14 point review of systems without changes. Exam/Review of Systems Vital Signs Vitals Vital Signs Date Time Temp Pulse Resp B/P Pulse Ox O2 Delivery O2 Flow Rate FiO2 04/08/17 15:52 2.0 04/08/17 15:39 97.5 74 140/69 04/08/17 10:54 18 95 04/08/17 07:47 Nasal Cannula Intake and Output 04/07/17 04/07/17 04/08/17 15:00 23:00 07:00 Intake Total 1350 ml Output Total 300 ml 650 ml Balance -300 ml 700 ml Exam Constitutional: alert, obese, well developed Psych: nl mood/affect, no complaints Head: normocephalic Eyes: nl conjunctiva, nl lids ENMT: nl external ears & nose, nl nasal mucosa & septum Neck: non-tender, supple, No jvd Respiratory: diminished breath sounds, No wheezing Cardiovascular: regular rate and rhythm, No murmurs/extra sounds Gastrointestinal: non-tender, soft Musculoskeletal: nl extremities to inspection, No joint tenderness Extremities: No clubbing, No cyanosis, No edema Neurological: nl mental status, nl speech Skin: nl turgor Results Result Diagram: 04/07/17 0658 04/07/17 0657 Results 24 hrs Laboratory Tests Test 04/07/17 17:16 04/07/17 21:57 04/08/17 08:06 04/08/17 12:02 Prothrombin Time 17.9 #H Prothrombin Time Ratio 1.4 INR International Normalized Ratio 1.47 Activated Partial Thromboplast Time 103.1 *H Bedside Glucose 126 121 154 174 Medications Medications Current Medications Ondansetron HCl (Zofran Inj) 4 mg Q6H PRN IV NAUSEA AND/OR VOMITING; Start at 14:30 Acetaminophen (Tylenol Supp) 650 mg Q6H PRN [place] PAIN LEVEL 1-3 OR FEVER; Start 04/05/17 at 14:30 Docusate Sodium (Colace) 100 mg Q12H PRN PO CONSTIPATION; Start 04/05/17 at 14 :30 Magnesium Hydroxide (Milk Of Mag) 30 ml DAILY PRN PO CONSTIPATION; Start 04/05 at 14:30 Zolpidem Tartrate (Ambien) 5 mg QHS PRN PO SLEEP Last administered on 22:37; Admin Dose 5 MG; Start 04/05/17 at 14:30 Carvedilol (Coreg) 6.25 mg BID PO Last administered on 04/08/17 08:11; Admin Dose 6.25 MG; Start 04/05/17 at 21:00 Nitroglycerin (Nitroglycerin (Sl Tab) 0.4 Mg) 1 tab Q5M PRN SL CHEST PAIN; Start 04/05/17 at 14:30 Morphine Sulfate (morphine) 2 mg Q2H PRN IV PAIN LEVEL 4-6 Last administered on 04/07/17 16:36; Admin Dose 2 MG; Start 04/05/17 at 14:30 Morphine Sulfate (morphine) 4 mg Q2H PRN IV PAIN LEVEL 7-10; Start 04/05/17 at 14:30 Diagnostic Test (Pha) (Accu-Chek) 1 ea 02 XX ; Start 04/06/17 at 02:00 Miscellaneous Information 1 ea NOTE XX ; Start 04/05/17 at 16:00 Glucose (Glutose) 15 gm Q15M PRN PO DECREASED GLUCOSE; Start 04/05/17 at 16:00 Glucose (Glutose) 22.5 gm Q15M PRN PO DECREASED GLUCOSE; Start 04/05/17 at 16: 00 Dextrose (D50w Syringe) 25 ml Q15M PRN IV DECREASED GLUCOSE; Start 04/05/17 at 16:00 Dextrose (D50w Syringe) 50 ml Q15M PRN IV DECREASED GLUCOSE; Start 04/05/17 at 16:00 Glucagon (Glucagen) 1 mg Q15M PRN IM DECREASED GLUCOSE; Start 04/05/17 at 16: 00 Glucose (Glutose) 15 gm Q15M PRN BUCCAL DECREASED GLUCOSE; Start 04/05/17 at 16:00 Aspirin (Ecotrin) 325 mg DAILY PO Last administered on 04/08/17 08:10; Admin Dose 325 MG; Start 04/06/17 at 09:00 Insulin Glargine (Lantus) 20 unit DAILY@08 SC Last administered on 04/08/17 08:12; Admin Dose 20 UNIT; Start 04/07/17 at 08:00 Atorvastatin Calcium (Lipitor) 40 mg HS PO Last administered on 04/07/17 20: 35; Admin Dose 40 MG; Start 04/06/17 at 21:00 Miscellaneous Information (* Miscellaneous Pharmacy Order) HOLD all METFORMIN ... ONCE XX ; Start 04/07/17 at 16:30; Stop 04/09/17 at 16:29 Guaifenesin/ Dextromethorphan (Robitussin Dm Liquid Cup) 10 ml Q4H PRN PO COUGH Last administered on 04/07/17 22:38; Admin Dose 10 ML; Start 04/07/17 at 22:00 JAKI GRADY MD Apr 08, 2017 16:12
--- NOTE | 2017-04-08 16:33 | PN ---
Date/Time of Note Date/Time of Note DATE: 04/08/17 TIME: 16:22 Assessment/Plan VTE Prophylaxis VTE Prophylaxis Intervention: LMWH Lines/Catheters IV [facility]ter [facility]from [facility] [place] Urinary Cath still in place: No Assessment/Plan Chief Complaint/Hosp Course 61 yo male wtih CAD s/p VT and 3 vessel disease on angiography, pending CABG evaluation - Continue aspirin, plaix, statin, beta thomas per cards - CV surgery evalution DMII: - Continue basal/bolus insulin Morbid obesity: - Weight lsos/lifesyte modifications discussed ADITHYA vs CKD: - monitor renal function Problems: Subjective 24 Hr Interval Summary Free Text/Dictation [facility] showing 3v disease, plan for CABG evaluation No complaints this AM, chest symptosm resolved Exam/Review of Systems Vital Signs Vitals Vital Signs Date Time Temp Pulse Resp B/P Pulse Ox O2 Delivery O2 Flow Rate FiO2 04/08/17 15:52 2.0 04/08/17 15:39 97.5 74 140/69 04/08/17 10:54 18 95 04/08/17 07:47 Nasal Cannula Intake and Output 04/07/17 04/07/17 04/08/17 15:00 23:00 07:00 Intake Total 1350 ml Output Total 300 ml 650 ml Balance -300 ml 700 ml Exam Constitutional: alert, oriented, well developed Psych: nl mood/affect, no complaints Head: atraumatic, normocephalic Eyes: EOMI, PERRL, nl conjunctiva, nl lids, nl sclera ENMT: nl external ears & nose, nl lips & teeth, nl nasal mucosa & septum Neck: non-tender, supple Respiratory: clear to auscultation, normal air movement Cardiovascular: nl pulses, regular rate and rhythm Gastrointestinal: nl liver, spleen, non-tender, soft Musculoskeletal: nl extremities to inspection, nl gait and stance Extremities: normal pulses Neurological: BOTTLE CARRIER II-XII intact, nl mental status, nl speech, nl strength Skin: nl turgor, No rash or lesions Lymph: nl lymph nodes Results Result Diagram: 04/07/17 0658 04/07/17 0657 Results 24 hrs Laboratory Tests Test 04/07/17 17:16 04/07/17 21:57 04/08/17 08:06 04/08/17 12:02 Prothrombin Time 17.9 #H Prothrombin Time Ratio 1.4 INR International Normalized Ratio 1.47 Activated Partial Thromboplast Time 103.1 *H Bedside Glucose 126 121 154 174 Medications Medications Current Medications Ondansetron HCl (Zofran Inj) 4 mg Q6H PRN IV NAUSEA AND/OR VOMITING; Start at 14:30 Acetaminophen (Tylenol Supp) 650 mg Q6H PRN [place] PAIN LEVEL 1-3 OR FEVER; Start 04/05/17 at 14:30 Docusate Sodium (Colace) 100 mg Q12H PRN PO CONSTIPATION; Start 04/05/17 at 14 :30 Magnesium Hydroxide (Milk Of Mag) 30 ml DAILY PRN PO CONSTIPATION; Start 04/05 at 14:30 Zolpidem Tartrate (Ambien) 5 mg QHS PRN PO SLEEP Last administered on 22:37; Admin Dose 5 MG; Start 04/05/17 at 14:30 Carvedilol (Coreg) 6.25 mg BID PO Last administered on 04/08/17 08:11; Admin Dose 6.25 MG; Start 04/05/17 at 21:00 Nitroglycerin (Nitroglycerin (Sl Tab) 0.4 Mg) 1 tab Q5M PRN SL CHEST PAIN; Start 04/05/17 at 14:30 Morphine Sulfate (morphine) 2 mg Q2H PRN IV PAIN LEVEL 4-6 Last administered on 04/07/17 16:36; Admin Dose 2 MG; Start 04/05/17 at 14:30 Morphine Sulfate (morphine) 4 mg Q2H PRN IV PAIN LEVEL 7-10; Start 04/05/17 at 14:30 Diagnostic Test (Pha) (Accu-Chek) 1 ea 02 XX ; Start 04/06/17 at 02:00 Miscellaneous Information 1 ea NOTE XX ; Start 04/05/17 at 16:00 Glucose (Glutose) 15 gm Q15M PRN PO DECREASED GLUCOSE; Start 04/05/17 at 16:00 Glucose (Glutose) 22.5 gm Q15M PRN PO DECREASED GLUCOSE; Start 04/05/17 at 16: 00 Dextrose (D50w Syringe) 25 ml Q15M PRN IV DECREASED GLUCOSE; Start 04/05/17 at 16:00 Dextrose (D50w Syringe) 50 ml Q15M PRN IV DECREASED GLUCOSE; Start 04/05/17 at 16:00 Glucagon (Glucagen) 1 mg Q15M PRN IM DECREASED GLUCOSE; Start 04/05/17 at 16: 00 Glucose (Glutose) 15 gm Q15M PRN BUCCAL DECREASED GLUCOSE; Start 04/05/17 at 16:00 Aspirin (Ecotrin) 325 mg DAILY PO Last administered on 04/08/17 08:10; Admin Dose 325 MG; Start 04/06/17 at 09:00 Insulin Glargine (Lantus) 20 unit DAILY@08 SC Last administered on 04/08/17 08:12; Admin Dose 20 UNIT; Start 04/07/17 at 08:00 Atorvastatin Calcium (Lipitor) 40 mg HS PO Last administered on 04/07/17 20: 35; Admin Dose 40 MG; Start 04/06/17 at 21:00 Miscellaneous Information (* Miscellaneous Pharmacy Order) HOLD all METFORMIN ... ONCE XX ; Start 04/07/17 at 16:30; Stop 04/09/17 at 16:29 Guaifenesin/ Dextromethorphan (Robitussin Dm Liquid Cup) 10 ml Q4H PRN PO COUGH Last administered on 04/07/17 22:38; Admin Dose 10 ML; Start 04/07/17 at 22:00 BHARATH KING MD Apr 08, 2017 16:33
--- NOTE | 2017-04-08 16:33 | PN ---
Date/Time of Note Date/Time of Note DATE: 04/08/17 TIME: 16:22 Assessment/Plan VTE Prophylaxis VTE Prophylaxis Intervention: LMWH Lines/Catheters IV [facility]ter Type (from [facility] Saline Lock Urinary Cath still in place: No Assessment/Plan Chief Complaint/Hosp Course 61 yo male wtih CAD s/p CA and 3 vessel disease on angiography, pending CABG evaluation - Continue aspirin, plaix, statin, beta thomas per cards - CV surgery evalution DMII: - Continue basal/bolus insulin Morbid obesity: - Weight lsos/lifesyte modifications discussed ADITHYA vs CKD: - monitor renal function Problems: Subjective 24 Hr Interval Summary Free Text/Dictation [facility] showing 3v disease, plan for CABG evaluation No complaints this AM, chest symptosm resolved Exam/Review of Systems Vital Signs Vitals Vital Signs Date Time Temp Pulse Resp B/P Pulse Ox O2 Delivery O2 Flow Rate FiO2 04/08/17 15:52 2.0 04/08/17 15:39 97.5 74 140/69 04/08/17 10:54 18 95 04/08/17 07:47 Nasal Cannula Intake and Output 04/07/17 04/07/17 04/08/17 15:00 23:00 07:00 Intake Total 1350 ml Output Total 300 ml 650 ml Balance -300 ml 700 ml Exam Constitutional: alert, oriented, well developed Psych: nl mood/affect, no complaints Head: atraumatic, normocephalic Eyes: EOMI, PERRL, nl conjunctiva, nl lids, nl sclera ENMT: nl external ears & nose, nl lips & teeth, nl nasal mucosa & septum Neck: non-tender, supple Respiratory: clear to auscultation, normal air movement Cardiovascular: nl pulses, regular rate and rhythm Gastrointestinal: nl liver, spleen, non-tender, soft Musculoskeletal: nl extremities to inspection, nl gait and stance Extremities: normal pulses Neurological: 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 II-XII intact, nl mental status, nl speech, nl strength Skin: nl turgor, No rash or lesions Lymph: nl lymph nodes Results Result Diagram: 04/07/17 0658 04/07/17 0657 Results 24 hrs Laboratory Tests Test 04/07/17 17:16 04/07/17 21:57 04/08/17 08:06 04/08/17 12:02 Prothrombin Time 17.9 #H Prothrombin Time Ratio 1.4 INR International Normalized Ratio 1.47 Activated Partial Thromboplast Time 103.1 *H Bedside Glucose 126 121 154 174 Medications Medications Current Medications Ondansetron HCl (Zofran Inj) 4 mg Q6H PRN IV NAUSEA AND/OR VOMITING; Start at 14:30 Acetaminophen (Tylenol Supp) 650 mg Q6H PRN [place] PAIN LEVEL 1-3 OR FEVER; Start 04/05/17 at 14:30 Docusate Sodium (Colace) 100 mg Q12H PRN PO CONSTIPATION; Start 04/05/17 at 14 :30 Magnesium Hydroxide (Milk Of Mag) 30 ml DAILY PRN PO CONSTIPATION; Start 04/05 at 14:30 Zolpidem Tartrate (Ambien) 5 mg QHS PRN PO SLEEP Last administered on 22:37; Admin Dose 5 MG; Start 04/05/17 at 14:30 Carvedilol (Coreg) 6.25 mg BID PO Last administered on 04/08/17 08:11; Admin Dose 6.25 MG; Start 04/05/17 at 21:00 Nitroglycerin (Nitroglycerin (Sl Tab) 0.4 Mg) 1 tab Q5M PRN SL CHEST PAIN; Start 04/05/17 at 14:30 Morphine Sulfate (morphine) 2 mg Q2H PRN IV PAIN LEVEL 4-6 Last administered on 04/07/17 16:36; Admin Dose 2 MG; Start 04/05/17 at 14:30 Morphine Sulfate (morphine) 4 mg Q2H PRN IV PAIN LEVEL 7-10; Start 04/05/17 at 14:30 Diagnostic Test (Pha) (Accu-Chek) 1 ea 02 XX ; Start 04/06/17 at 02:00 Miscellaneous Information 1 ea NOTE XX ; Start 04/05/17 at 16:00 Glucose (Glutose) 15 gm Q15M PRN PO DECREASED GLUCOSE; Start 04/05/17 at 16:00 Glucose (Glutose) 22.5 gm Q15M PRN PO DECREASED GLUCOSE; Start 04/05/17 at 16: 00 Dextrose (D50w Syringe) 25 ml Q15M PRN IV DECREASED GLUCOSE; Start 04/05/17 at 16:00 Dextrose (D50w Syringe) 50 ml Q15M PRN IV DECREASED GLUCOSE; Start 04/05/17 at 16:00 Glucagon (Glucagen) 1 mg Q15M PRN IM DECREASED GLUCOSE; Start 04/05/17 at 16: 00 Glucose (Glutose) 15 gm Q15M PRN BUCCAL DECREASED GLUCOSE; Start 04/05/17 at 16:00 Aspirin (Ecotrin) 325 mg DAILY PO Last administered on 04/08/17 08:10; Admin Dose 325 MG; Start 04/06/17 at 09:00 Insulin Glargine (Lantus) 20 unit DAILY@08 SC Last administered on 04/08/17 08:12; Admin Dose 20 UNIT; Start 04/07/17 at 08:00 Atorvastatin Calcium (Lipitor) 40 mg HS PO Last administered on 04/07/17 20: 35; Admin Dose 40 MG; Start 04/06/17 at 21:00 Miscellaneous Information (* Miscellaneous Pharmacy Order) HOLD all METFORMIN ... ONCE XX ; Start 04/07/17 at 16:30; Stop 04/09/17 at 16:29 Guaifenesin/ Dextromethorphan (Robitussin Dm Liquid Cup) 10 ml Q4H PRN PO COUGH Last administered on 04/07/17 22:38; Admin Dose 10 ML; Start 04/07/17 at 22:00 BHARATH KING MD Apr 08, 2017 16:33
[2017-04-08] MEDS: GUAIFENESIN/DM 5ML CUP PO PRN ×2 (17:21→22:06)
[2017-04-08] MEDS: ATORVASTATIN 40 MG TAB PO SCH (20:38)
[2017-04-09] VITALS (13 sets, daily range): BP systolic 129–148; BP diastolic 59–96; PULSE 35–79; RESP 16–20
[2017-04-09] MEDS: ACCU-CHEK XX SCH (01:33)
--- NOTE | 2017-04-09 02:58 | CONS ---
DATE OF ADMISSION: 04/05/2017 DATE OF CONSULTATION: REASON FOR CONSULTATION: Coronary artery disease. HISTORY OF PRESENT ILLNESS: This is a 61-year-old male admitted because of chest pain. Patient has a history of hypertension, hyperlipidemia, morbid obesity and CHF. His troponins were mildly eleva gladis. He underwent a coronary angiogram which was positive for 3-vessel coronary artery disease invo lving LAD 60%, diagonal branch 70%, obtuse marginal 95%, right coronary 70% to 80%. The patient has a history of chronic kidney disease with a creatinine of 1.99. Did not get a left ventriculogram, however, the patient has had a transthoracic echocardiogram, which showed ejection fraction of about 45% to 50%. PAST MEDICAL HISTORY: Hypertension, hyperlipidemia, obesity. PAST SURGICAL HISTORY: As above. ALLERGIES: NONE. SOCIAL HISTORY: No smoking, drinking or drug use. MEDICATIONS: List reviewed. PHYSICAL EXAMINATION: VITAL SIGNS: Blood pressure is 140/69, pulse is 74, respirations 18, saturation is 96% on lit ers of oxygen. CARDIOVASCULAR: Normal S1, S2. LUNGS: Clear. ABDOMEN: Soft. EXTREMITIES: Warm. LABORATORY VALUES: Significant for a creatinine of 1.99. IMPRESSION: 1. Three-vessel coronary artery disease. 2. Renal failure. 3. Morbid obesity. RECOMMENDATIONS: This is a patient who has high risk of undergoing coronary artery bypass grafting secondary to morbid obesity, elevation in creatinine level. At this time, we will discuss various o ptions with the referring physician and the family. Dictated By: JARRED KEYES MD FM/NTS Conf#: [id number] DID#: [id number] CC: SCOT MCKEON MD;*EndCC*
[2017-04-09] MEDS: INSULIN ASPART [NOVOLOG] 3 ML PEN SC SCH ×7 (07:25→20:39)
[2017-04-09] MEDS: GUAIFENESIN/DM 5ML CUP PO PRN ×2 (07:26→20:39)
[2017-04-09] MEDS: ASPIRIN (EC) 325 MG TAB PO SCH (08:05)
[2017-04-09] MEDS: INSULIN GLARGINE [LANtus] 3 ML PEN SC SCH (08:07)
--- NOTE | 2017-04-09 16:05 | PN ---
Date/Time of Note Date/Time of Note DATE: 04/09/17 TIME: 16:04 Assessment/Plan VTE Prophylaxis VTE Prophylaxis Intervention: heparin Lines/Catheters IV [facility] Saline Lock Urinary Cath still in place: No Assessment/Plan Chief Complaint/Hosp Course 61 yo male wtih CAD s/p DC and 3 vessel disease on angiography, pending CABG evaluation - Continue aspirin, plaix, statin, beta thomas per cards - CV surgery evaluation DMII: - Continue basal/bolus insulin Morbid obesity: - Weight loss/lifestyle modifications discussed ADITHYA vs CKD: - monitor renal function Anemia: - Mild iron defiiency present, will supplement dispo plan pending Problems: Subjective 24 Hr Interval Summary Free Text/Dictation Stable, no change to clinical status Awaiting CABG decision Exam/Review of Systems Vital Signs Vitals Vital Signs Date Time Temp Pulse Resp B/P Pulse Ox O2 Delivery O2 Flow Rate FiO2 04/09/17 15:44 98.0 69 16 132/71 97 04/09/17 06:08 2.0 04/08/17 20:00 Nasal Cannula Intake and Output 04/08/17 04/08/17 04/09/17 15:00 23:00 07:00 Intake Total 500 ml 850 ml Output Total 750 ml Balance -250 ml 850 ml Exam Constitutional: alert, oriented, well developed Psych: nl mood/affect, no complaints Head: atraumatic, normocephalic Eyes: EOMI, PERRL, nl conjunctiva, nl lids, nl sclera ENMT: nl external ears & nose, nl lips & teeth, nl nasal mucosa & septum Neck: non-tender, supple Respiratory: clear to auscultation, normal air movement Cardiovascular: nl pulses, regular rate and rhythm Gastrointestinal: nl liver, spleen, non-tender, soft Musculoskeletal: nl extremities to inspection, nl gait and stance Extremities: normal pulses Neurological: 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, nl mental status, nl speech, nl strength Skin: nl turgor, No rash or lesions Lymph: nl lymph nodes Results Result Diagram: 04/09/17 0655 04/09/17 0655 Results 24 hrs Laboratory Tests Test 04/08/17 17:23 04/08/17 19:59 04/09/17 06:55 04/09/17 07:26 Bedside Glucose 121 170 121 White Blood Count 7.9 Red Blood Count 3.21 L Hemoglobin 9.5 L Hematocrit 28.9 L Mean Corpuscular Volume 90.0 Mean Corpuscular Hemoglobin 29.6 Mean Corpuscular Hemoglobin Concent 32.9 Red Cell Distribution Width 12.5 Platelet Count 224 Mean Platelet Volume 10.8 H Neutrophils % 60.3 Lymphocytes % 24.1 Monocytes % 10.4 Eosinophils % 4.3 Basophils % 0.5 Nucleated Red Blood Cells % 0.0 Neutrophils # 4.8 Lymphocytes # 1.9 Monocytes # 0.8 Eosinophils # 0.3 Basophils # 0.0 Nucleated Red Blood Cells # 0.0 Sodium Level 139 Potassium Level 4.6 Chloride Level 107 Carbon Dioxide Level 24 Anion Gap 13 Blood Urea Nitrogen 31 H Creatinine 1.89 H Glucose Level 120 Calcium Level 8.5 Iron Level 27 L Total Iron Binding Capacity 250 Percent Iron Saturation 11 L Ferritin 160.0 Total Bilirubin 0.3 Direct Bilirubin 0.00 Indirect Bilirubin 0.3 Aspartate Amino Transf (AST/SGOT) 40 Alanine Aminotransferase (ALT/SGPT) 45 Alkaline Phosphatase 86 Total Protein 6.4 Albumin 3.4 Globulin 3.00 Albumin/Globulin Ratio 1.13 Test 04/09/17 11:53 Bedside Glucose 123 Medications Medications Current Medications Ondansetron HCl (Zofran Inj) 4 mg Q6H PRN IV NAUSEA AND/OR VOMITING; Start at 14:30 Acetaminophen (Tylenol Supp) 650 mg Q6H PRN [place] PAIN LEVEL 1-3 OR FEVER; Start 04/05/17 at 14:30 Docusate Sodium (Colace) 100 mg Q12H PRN PO CONSTIPATION; Start 04/05/17 at 14 :30 Magnesium Hydroxide (Milk Of Mag) 30 ml DAILY PRN PO CONSTIPATION; Start 04/05 at 14:30 Zolpidem Tartrate (Ambien) 5 mg QHS PRN PO SLEEP Last administered on 22:37; Admin Dose 5 MG; Start 04/05/17 at 14:30 Carvedilol (Coreg) 6.25 mg BID PO Last administered on 04/09/17 08:05; Admin Dose 6.25 MG; Start 04/05/17 at 21:00 Nitroglycerin (Nitroglycerin (Sl Tab) 0.4 Mg) 1 tab Q5M PRN SL CHEST PAIN; Start 04/05/17 at 14:30 Morphine Sulfate (morphine) 2 mg Q2H PRN IV PAIN LEVEL 4-6 Last administered on 04/07/17 16:36; Admin Dose 2 MG; Start 04/05/17 at 14:30 Morphine Sulfate (morphine) 4 mg Q2H PRN IV PAIN LEVEL 7-10 Last administered on 04/08/17 20:40; Admin Dose 4 MG; Start 04/05/17 at 14:30 Diagnostic Test (Pha) (Accu-Chek) 1 ea 02 XX ; Start 04/06/17 at 02:00 Miscellaneous Information 1 ea NOTE XX ; Start 04/05/17 at 16:00 Glucose (Glutose) 15 gm Q15M PRN PO DECREASED GLUCOSE; Start 04/05/17 at 16:00 Glucose (Glutose) 22.5 gm Q15M PRN PO DECREASED GLUCOSE; Start 04/05/17 at 16: 00 Dextrose (D50w Syringe) 25 ml Q15M PRN IV DECREASED GLUCOSE; Start 04/05/17 at 16:00 Dextrose (D50w Syringe) 50 ml Q15M PRN IV DECREASED GLUCOSE; Start 04/05/17 at 16:00 Glucagon (Glucagen) 1 mg Q15M PRN IM DECREASED GLUCOSE; Start 04/05/17 at 16: 00 Glucose (Glutose) 15 gm Q15M PRN BUCCAL DECREASED GLUCOSE; Start 04/05/17 at 16:00 Aspirin (Ecotrin) 325 mg DAILY PO Last administered on 04/09/17 08:05; Admin Dose 325 MG; Start 04/06/17 at 09:00 Insulin Glargine (Lantus) 20 unit DAILY@08 SC Last administered on 04/09/17 08 :07; Admin Dose 20 UNIT; Start 04/07/17 at 08:00 Atorvastatin Calcium (Lipitor) 40 mg HS PO Last administered on 04/08/17 20: 38; Admin Dose 40 MG; Start 04/06/17 at 21:00 Miscellaneous Information (* Miscellaneous Pharmacy Order) HOLD all METFORMIN ... ONCE XX ; Start 04/07/17 at 16:30; Stop 04/09/17 at 16:29 Guaifenesin/ Dextromethorphan (Robitussin Dm Liquid Cup) 10 ml Q4H PRN PO COUGH Last administered on 04/09/17 07:26; Admin Dose 10 ML; Start 04/07/17 at 22:00 BHARATH KING MD Apr 09, 2017 16:05
--- NOTE | 2017-04-09 18:45 | PN ---
Date/Time of Note Date/Time of Note DATE: 04/09/17 TIME: 18:43 Assessment/Plan Lines/Catheters IV Catheter Type (from Nrsg): Saline Lock Spence in Place (from Nrsg): No Assessment/Plan Chief Complaint/Hosp Course RECOMMENDATIONS: Coronary artery disease Morbid obesity diabetes this is a patient who has high risk of undergoing coronary artery bypass grafting secondary to morbid obesity, elevation in creatinine level. We discussed various options with the referring physicians and the family Problems: Subjective 24 Hr Interval Summary Constitutional: improved Pain Control: mild Exam/Review of Systems Vital Signs Vitals Vital Signs Date Time Temp Pulse Resp B/P Pulse Ox O2 Delivery O2 Flow Rate FiO2 04/09/17 16:51 2.0 04/09/17 16:00 69 04/09/17 15:44 98.0 16 132/71 97 04/08/17 20:00 Nasal Cannula Intake and Output 04/08/17 04/08/17 04/09/17 15:00 23:00 07:00 Intake Total 500 ml 850 ml Output Total 750 ml Balance -250 ml 850 ml Exam ENMT: mucosa pink and moist, nl external ears & nose, nl lips & teeth, nl nasal mucosa & septum Neck: non-tender, supple Respiratory: clear to auscultation, normal air movement Cardiovascular: nl pulses, regular rate and rhythm Gastrointestinal: nl liver, spleen, non-tender, soft Results Result Diagram: 04/09/17 0655 04/09/17 0655 JARRED KEYES MD Apr 09, 2017 18:45
--- NOTE | 2017-04-09 20:03 | CONS ---
Date/Time of Note Date/Time of Note DATE: 04/09/17 TIME: 20:02 Assessment/Plan Assessment/Plan Chief Complaint/Hosp Course Assessment: NSTEMI Three-vessel coronary artery disease Ischemic cardiomyopathy - LVEF 45-50% Acute kidney injury vs chronic kidney disease Hypertension Dyslipidemia Insulin-dependent diabetes mellitus Recommendations: -continue aspirin 325mg daily -continue atorvastatin 40mg daily -continue carvedilol 6.25mg BID -hold lisinopril due to renal failure -follow up CT surgery recommendations - if no CABG, can do staged multi-vessel PCI Problems: Consultation Date/Type/Reason Admit Date/Time Apr 05, 2017 at 13:23 Type of Consultation: Cardiology 24 HR Interval Summary Free Text/Dictation No acute events. Denies chest pain. Detailed Summary Additional Comments 14 point review of systems without changes. Exam/Review of Systems Vital Signs Vitals Vital Signs Date Time Temp Pulse Resp B/P Pulse Ox O2 Delivery O2 Flow Rate FiO2 04/09/17 16:51 2.0 04/09/17 16:00 69 04/09/17 15:44 98.0 16 132/71 97 04/08/17 20:00 Nasal Cannula Intake and Output 04/08/17 04/08/17 04/09/17 15:00 23:00 07:00 Intake Total 500 ml 850 ml Output Total 750 ml Balance -250 ml 850 ml Exam Constitutional: alert, obese, well developed Psych: nl mood/affect, no complaints Head: normocephalic Eyes: nl conjunctiva, nl lids ENMT: nl external ears & nose, nl nasal mucosa & septum Neck: non-tender, supple, No jvd Respiratory: diminished breath sounds, No wheezing Cardiovascular: regular rate and rhythm, No murmurs/extra sounds Gastrointestinal: non-tender, soft Musculoskeletal: nl extremities to inspection, No joint tenderness Extremities: No clubbing, No cyanosis, No edema Neurological: nl mental status, nl speech Skin: nl turgor Results Result Diagram: 04/09/17 0655 04/09/17 0655 Results 24 hrs Laboratory Tests Test 04/09/17 06:55 04/09/17 07:26 04/09/17 11:53 04/09/17 17:05 White Blood Count 7.9 Red Blood Count 3.21 L Hemoglobin 9.5 L Hematocrit 28.9 L Mean Corpuscular Volume 90.0 Mean Corpuscular Hemoglobin 29.6 Mean Corpuscular Hemoglobin Concent 32.9 Red Cell Distribution Width 12.5 Platelet Count 224 Mean Platelet Volume 10.8 H Neutrophils % 60.3 Lymphocytes % 24.1 Monocytes % 10.4 Eosinophils % 4.3 Basophils % 0.5 Nucleated Red Blood Cells % 0.0 Neutrophils # 4.8 Lymphocytes # 1.9 Monocytes # 0.8 Eosinophils # 0.3 Basophils # 0.0 Nucleated Red Blood Cells # 0.0 Sodium Level 139 Potassium Level 4.6 Chloride Level 107 Carbon Dioxide Level 24 Anion Gap 13 Blood Urea Nitrogen 31 H Creatinine 1.89 H Glucose Level 120 Calcium Level 8.5 Iron Level 27 L Total Iron Binding Capacity 250 Percent Iron Saturation 11 L Ferritin 160.0 Total Bilirubin 0.3 Direct Bilirubin 0.00 Indirect Bilirubin 0.3 Aspartate Amino Transf (AST/SGOT) 40 Alanine Aminotransferase (ALT/SGPT) 45 Alkaline Phosphatase 86 Total Protein 6.4 Albumin 3.4 Globulin 3.00 Albumin/Globulin Ratio 1.13 Bedside Glucose 121 123 82 Medications Medications Current Medications Ondansetron HCl (Zofran Inj) 4 mg Q6H PRN IV NAUSEA AND/OR VOMITING; Start at 14:30 Acetaminophen (Tylenol Supp) 650 mg Q6H PRN [place] PAIN LEVEL 1-3 OR FEVER; Start 04/05/17 at 14:30 Docusate Sodium (Colace) 100 mg Q12H PRN PO CONSTIPATION; Start 04/05/17 at 14 :30 Magnesium Hydroxide (Milk Of Mag) 30 ml DAILY PRN PO CONSTIPATION; Start 04/05 at 14:30 Zolpidem Tartrate (Ambien) 5 mg QHS PRN PO SLEEP Last administered on 22:37; Admin Dose 5 MG; Start 04/05/17 at 14:30 Carvedilol (Coreg) 6.25 mg BID PO Last administered on 04/09/17 08:05; Admin Dose 6.25 MG; Start 04/05/17 at 21:00 Nitroglycerin (Nitroglycerin (Sl Tab) 0.4 Mg) 1 tab Q5M PRN SL CHEST PAIN; Start 04/05/17 at 14:30 Morphine Sulfate (morphine) 2 mg Q2H PRN IV PAIN LEVEL 4-6 Last administered on 04/07/17 16:36; Admin Dose 2 MG; Start 04/05/17 at 14:30 Morphine Sulfate (morphine) 4 mg Q2H PRN IV PAIN LEVEL 7-10 Last administered on 04/08/17 20:40; Admin Dose 4 MG; Start 04/05/17 at 14:30 Diagnostic Test (Pha) (Accu-Chek) 1 ea 02 XX ; Start 04/06/17 at 02:00 Miscellaneous Information 1 ea NOTE XX ; Start 04/05/17 at 16:00 Glucose (Glutose) 15 gm Q15M PRN PO DECREASED GLUCOSE; Start 04/05/17 at 16:00 Glucose (Glutose) 22.5 gm Q15M PRN PO DECREASED GLUCOSE; Start 04/05/17 at 16: 00 Dextrose (D50w Syringe) 25 ml Q15M PRN IV DECREASED GLUCOSE; Start 04/05/17 at 16:00 Dextrose (D50w Syringe) 50 ml Q15M PRN IV DECREASED GLUCOSE; Start 04/05/17 at 16:00 Glucagon (Glucagen) 1 mg Q15M PRN IM DECREASED GLUCOSE; Start 04/05/17 at 16: 00 Glucose (Glutose) 15 gm Q15M PRN BUCCAL DECREASED GLUCOSE; Start 04/05/17 at 16:00 Aspirin (Ecotrin) 325 mg DAILY PO Last administered on 04/09/17 08:05; Admin Dose 325 MG; Start 04/06/17 at 09:00 Insulin Glargine (Lantus) 20 unit DAILY@08 SC Last administered on 04/09/17 08 :07; Admin Dose 20 UNIT; Start 04/07/17 at 08:00 Atorvastatin Calcium (Lipitor) 40 mg HS PO Last administered on 04/08/17 20: 38; Admin Dose 40 MG; Start 04/06/17 at 21:00 Guaifenesin/ Dextromethorphan 10 ml 10 ml Q4H PRN PO COUGH Last administered on 04/09/17 07:26; Admin Dose 10 ML; Start 04/07/17 at 22:00 Ferric Sodium Gluconate Complex/ Sodium Chloride (Ferrlecit/NS) 110 ml @ 100 mls/hr Q24H IVPB ; Start 04/09/17 at 18:00; Stop 04/11/17 at 19:05 JAKI GRADY MD Apr 09, 2017 20:03
[2017-04-09] MEDS: ATORVASTATIN 40 MG TAB PO SCH (20:38)
[2017-04-09] MEDS: SOD FERRIC GLUC COMPLX 125 MG in SOD CHLORIDE 0.9% 100 ML IVPB SCH (20:40)
[2017-04-10] VITALS (13 sets, daily range): BP systolic 110–158; BP diastolic 67–82; PULSE 55–145; RESP 17–20
[2017-04-10] MEDS: ACCU-CHEK XX SCH (02:00)
[2017-04-10] MEDS: GUAIFENESIN/DM 5ML CUP PO PRN ×4 (04:11→22:44)
[2017-04-10] MEDS: INSULIN ASPART [NOVOLOG] 3 ML PEN SC SCH ×7 (07:25→20:19)
[2017-04-10] MEDS: INSULIN GLARGINE [LANtus] 3 ML PEN SC SCH (08:03)
[2017-04-10] MEDS: ASPIRIN (EC) 325 MG TAB PO SCH (08:26)
--- NOTE | 2017-04-10 13:28 | PN ---
Date/Time of Note Date/Time of Note DATE: 04/10/17 TIME: 13:27 Assessment/Plan VTE Prophylaxis VTE Prophylaxis Intervention: LMWH Lines/Catheters IV Catheter Type (from Nrs): Saline Lock Urinary Cath still in place: No Assessment/Plan Chief Complaint/Hosp Course 61 yo male wtih CAD s/p PA and 3 vessel disease on angiography, pending CABG vs staged PCI - Continue aspirin, plaix, statin, beta htomas per cards - CV surgery evaluation, agreeable to CABG or PCI DMII: - Continue basal/bolus insulin Morbid obesity: - Weight loss/lifestyle modifications discussed ADITHYA vs CKD: - monitor renal function Anemia: - Mild iron defiiency present, will supplement dispo plan pending Problems: Subjective 24 Hr Interval Summary Free Text/Dictation No chest complaints He is agreeable to CABG if necessary or PCI Exam/Review of Systems Vital Signs Vitals Vital Signs Date Time Temp Pulse Resp B/P Pulse Ox O2 Delivery O2 Flow Rate FiO2 04/10/17 12:16 67 04/10/17 11:25 98.5 17 110/67 99 04/10/17 01:24 21 04/09/17 20:36 Room Air 04/09/17 16:51 2.0 Intake and Output 04/09/17 04/09/17 04/10/17 15:00 23:00 07:00 Intake Total 1050 ml 240 ml Output Total 550 ml Balance 500 ml 240 ml Exam Constitutional: alert, oriented, well developed Psych: nl mood/affect, no complaints Head: atraumatic, normocephalic Eyes: EOMI, PERRL, nl conjunctiva, nl lids, nl sclera ENMT: nl external ears & nose, nl lips & teeth, nl nasal mucosa & septum Neck: non-tender, supple Respiratory: clear to auscultation, normal air movement Cardiovascular: nl pulses, regular rate and rhythm Gastrointestinal: nl liver, spleen, non-tender, soft Musculoskeletal: nl extremities to inspection, nl gait and stance Extremities: normal pulses Neurological: 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 II-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 intact, nl mental status, nl speech, nl strength Skin: nl turgor, No rash or lesions Lymph: nl lymph nodes Results Result Diagram: 04/09/17 0655 04/09/17 0655 Results 24 hrs Laboratory Tests Test 04/09/17 17:05 04/09/17 20:35 04/10/17 08:00 04/10/17 11:55 Bedside Glucose 82 129 124 178 Medications Medications Current Medications Ondansetron HCl (Zofran Inj) 4 mg Q6H PRN IV NAUSEA AND/OR VOMITING; Start at 14:30 Acetaminophen (Tylenol Supp) 650 mg Q6H PRN [place] PAIN LEVEL 1-3 OR FEVER; Start 04/05/17 at 14:30 Docusate Sodium (Colace) 100 mg Q12H PRN PO CONSTIPATION; Start 04/05/17 at 14 :30 Magnesium Hydroxide (Milk Of Mag) 30 ml DAILY PRN PO CONSTIPATION; Start 04/05 at 14:30 Zolpidem Tartrate (Ambien) 5 mg QHS PRN PO SLEEP Last administered on 22:37; Admin Dose 5 MG; Start 04/05/17 at 14:30 Carvedilol (Coreg) 6.25 mg BID PO Last administered on 04/10/17 08:44; Admin Dose 6.25 MG; Start 04/05/17 at 21:00 Nitroglycerin (Nitroglycerin (Sl Tab) 0.4 Mg) 1 tab Q5M PRN SL CHEST PAIN; Start 04/05/17 at 14:30 Morphine Sulfate (morphine) 2 mg Q2H PRN IV PAIN LEVEL 4-6 Last administered on 04/07/17 16:36; Admin Dose 2 MG; Start 04/05/17 at 14:30 Morphine Sulfate (morphine) 4 mg Q2H PRN IV PAIN LEVEL 7-10 Last administered on 04/08/17 20:40; Admin Dose 4 MG; Start 04/05/17 at 14:30 Diagnostic Test (Pha) (Accu-Chek) 1 ea 02 XX ; Start 04/06/17 at 02:00 Miscellaneous Information 1 ea NOTE XX ; Start 04/05/17 at 16:00 Glucose (Glutose) 15 gm Q15M PRN PO DECREASED GLUCOSE; Start 04/05/17 at 16:00 Glucose (Glutose) 22.5 gm Q15M PRN PO DECREASED GLUCOSE; Start 04/05/17 at 16: 00 Dextrose (D50w Syringe) 25 ml Q15M PRN IV DECREASED GLUCOSE; Start 04/05/17 at 16:00 Dextrose (D50w Syringe) 50 ml Q15M PRN IV DECREASED GLUCOSE; Start 04/05/17 at 16:00 Glucagon (Glucagen) 1 mg Q15M PRN IM DECREASED GLUCOSE; Start 04/05/17 at 16: 00 Glucose (Glutose) 15 gm Q15M PRN BUCCAL DECREASED GLUCOSE; Start 04/05/17 at 16:00 Aspirin (Ecotrin) 325 mg DAILY PO Last administered on 04/10/17 08:26; Admin Dose 325 MG; Start 04/06/17 at 09:00 Insulin Glargine (Lantus) 20 unit DAILY@08 SC Last administered on 04/10/17 08 :03; Admin Dose 20 UNIT; Start 04/07/17 at 08:00 Atorvastatin Calcium (Lipitor) 40 mg HS PO Last administered on 04/09/17 20:38 ; Admin Dose 40 MG; Start 04/06/17 at 21:00 Guaifenesin/ Dextromethorphan 10 ml 10 ml Q4H PRN PO COUGH Last administered on 04/10/17 10:44; Admin Dose 10 ML; Start 04/07/17 at 22:00 Ferric Sodium Gluconate Complex/ Sodium Chloride (Ferrlecit/NS) 110 ml @ 100 mls/hr Q24H IVPB Last administered on 04/09/17 20:40; Admin Dose 100 MLS/HR; Start 04/09/17 at 18:00; Stop 04/11/17 at 19:05 BHARATH KING MD Apr 10, 2017 13:28
--- NOTE | 2017-04-10 13:28 | PN ---
Date/Time of Note Date/Time of Note DATE: 04/10/17 TIME: 13:27 Assessment/Plan VTE Prophylaxis VTE Prophylaxis Intervention: LMWH Lines/Catheters IV Catheter Type (from Nrs): Saline Lock Urinary Cath still in place: No Assessment/Plan Chief Complaint/Hosp Course 61 yo male wtih CAD s/p SD and 3 vessel disease on angiography, pending CABG vs staged PCI - Continue aspirin, plaix, statin, beta thomas per cards - CV surgery evaluation, agreeable to CABG or PCI DMII: - Continue basal/bolus insulin Morbid obesity: - Weight loss/lifestyle modifications discussed ADTIHYA vs CKD: - monitor renal function Anemia: - Mild iron defiiency present, will supplement dispo plan pending Problems: Subjective 24 Hr Interval Summary Free Text/Dictation No chest complaints He is agreeable to CABG if necessary or PCI Exam/Review of Systems Vital Signs Vitals Vital Signs Date Time Temp Pulse Resp B/P Pulse Ox O2 Delivery O2 Flow Rate FiO2 04/10/17 12:16 67 04/10/17 11:25 98.5 17 110/67 99 04/10/17 01:24 21 04/09/17 20:36 Room Air 04/09/17 16:51 2.0 Intake and Output 04/09/17 04/09/17 04/10/17 15:00 23:00 07:00 Intake Total 1050 ml 240 ml Output Total 550 ml Balance 500 ml 240 ml Exam Constitutional: alert, oriented, well developed Psych: nl mood/affect, no complaints Head: atraumatic, normocephalic Eyes: EOMI, PERRL, nl conjunctiva, nl lids, nl sclera ENMT: nl external ears & nose, nl lips & teeth, nl nasal mucosa & septum Neck: non-tender, supple Respiratory: clear to auscultation, normal air movement Cardiovascular: nl pulses, regular rate and rhythm Gastrointestinal: nl liver, spleen, non-tender, soft Musculoskeletal: nl extremities to inspection, nl gait and stance Extremities: normal pulses Neurological: TRANSFER MACHINE OPERATOR II-XII intact, nl mental status, nl speech, nl strength Skin: nl turgor, No rash or lesions Lymph: nl lymph nodes Results Result Diagram: 04/09/17 0655 04/09/17 0655 Results 24 hrs Laboratory Tests Test 04/09/17 17:05 04/09/17 20:35 04/10/17 08:00 04/10/17 11:55 Bedside Glucose 82 129 124 178 Medications Medications Current Medications Ondansetron HCl (Zofran Inj) 4 mg Q6H PRN IV NAUSEA AND/OR VOMITING; Start at 14:30 Acetaminophen (Tylenol Supp) 650 mg Q6H PRN [place] PAIN LEVEL 1-3 OR FEVER; Start 04/05/17 at 14:30 Docusate Sodium (Colace) 100 mg Q12H PRN PO CONSTIPATION; Start 04/05/17 at 14 :30 Magnesium Hydroxide (Milk Of Mag) 30 ml DAILY PRN PO CONSTIPATION; Start 04/05 at 14:30 Zolpidem Tartrate (Ambien) 5 mg QHS PRN PO SLEEP Last administered on 22:37; Admin Dose 5 MG; Start 04/05/17 at 14:30 Carvedilol (Coreg) 6.25 mg BID PO Last administered on 04/10/17 08:44; Admin Dose 6.25 MG; Start 04/05/17 at 21:00 Nitroglycerin (Nitroglycerin (Sl Tab) 0.4 Mg) 1 tab Q5M PRN SL CHEST PAIN; Start 04/05/17 at 14:30 Morphine Sulfate (morphine) 2 mg Q2H PRN IV PAIN LEVEL 4-6 Last administered on 04/07/17 16:36; Admin Dose 2 MG; Start 04/05/17 at 14:30 Morphine Sulfate (morphine) 4 mg Q2H PRN IV PAIN LEVEL 7-10 Last administered on 04/08/17 20:40; Admin Dose 4 MG; Start 04/05/17 at 14:30 Diagnostic Test (Pha) (Accu-Chek) 1 ea 02 XX ; Start 04/06/17 at 02:00 Miscellaneous Information 1 ea NOTE XX ; Start 04/05/17 at 16:00 Glucose (Glutose) 15 gm Q15M PRN PO DECREASED GLUCOSE; Start 04/05/17 at 16:00 Glucose (Glutose) 22.5 gm Q15M PRN PO DECREASED GLUCOSE; Start 04/05/17 at 16: 00 Dextrose (D50w Syringe) 25 ml Q15M PRN IV DECREASED GLUCOSE; Start 04/05/17 at 16:00 Dextrose (D50w Syringe) 50 ml Q15M PRN IV DECREASED GLUCOSE; Start 04/05/17 at 16:00 Glucagon (Glucagen) 1 mg Q15M PRN IM DECREASED GLUCOSE; Start 04/05/17 at 16: 00 Glucose (Glutose) 15 gm Q15M PRN BUCCAL DECREASED GLUCOSE; Start 04/05/17 at 16:00 Aspirin (Ecotrin) 325 mg DAILY PO Last administered on 04/10/17 08:26; Admin Dose 325 MG; Start 04/06/17 at 09:00 Insulin Glargine (Lantus) 20 unit DAILY@08 SC Last administered on 04/10/17 08 :03; Admin Dose 20 UNIT; Start 04/07/17 at 08:00 Atorvastatin Calcium (Lipitor) 40 mg HS PO Last administered on 04/09/17 20:38 ; Admin Dose 40 MG; Start 04/06/17 at 21:00 Guaifenesin/ Dextromethorphan 10 ml 10 ml Q4H PRN PO COUGH Last administered on 04/10/17 10:44; Admin Dose 10 ML; Start 04/07/17 at 22:00 Ferric Sodium Gluconate Complex/ Sodium Chloride (Ferrlecit/NS) 110 ml @ 100 mls/hr Q24H IVPB Last administered on 04/09/17 20:40; Admin Dose 100 MLS/HR; Start 04/09/17 at 18:00; Stop 04/11/17 at 19:05 BHARATH KING MD Apr 10, 2017 13:28
[2017-04-10] MEDS: SOD FERRIC GLUC COMPLX 125 MG in SOD CHLORIDE 0.9% 100 ML IVPB SCH (17:27)
[2017-04-10] MEDS: ATORVASTATIN 40 MG TAB PO SCH (20:20)
[2017-04-11] VITALS (19 sets, daily range): BP systolic 116–154; BP diastolic 59–89; PULSE 57–78; RESP 11–20
[2017-04-11] MEDS: ACCU-CHEK XX SCH (01:47)
[2017-04-11] MEDS: GUAIFENESIN/DM 5ML CUP PO PRN ×2 (02:18→20:31)
[2017-04-11] MEDS ORDERED: NITROGLYCERIN (IC) 100 MCG/ML INJ ONE (06:56)
[2017-04-11] MEDS ORDERED: IODIXANOL LOCM 100 ML BTL ONE (06:56)
[2017-04-11] MEDS ORDERED: HEPARIN 1000 UNITS/ML 10 ML INJ ONE (06:56)
[2017-04-11] MEDS ORDERED: VERAPAMIL 5 MG INJ ONE (06:56)
[2017-04-11] MEDS ORDERED: LIDOCAINE 1% (MDV) 20 ML INJ ONE (06:56)
[2017-04-11] MEDS ORDERED: FENTAnyl 50 MCG/ML VIAL ONE (07:09)
[2017-04-11] MEDS ORDERED: MIDAZOLAM 1 MG/ML 2 ML INJ ONE (07:13)
[2017-04-11] MEDS: INSULIN ASPART [NOVOLOG] 3 ML PEN SC SCH ×7 (07:25→20:36)
[2017-04-11] MEDS ORDERED: ASPIRIN 81 MG TAB ONE (07:39)
[2017-04-11] MEDS ORDERED: TICAGRELOR 90 MG TABLET ONE (07:39)
[2017-04-11] MEDS ORDERED: BIVALIRUDIN 250MG /NS 50 ML 50 ML IVPB ONE (07:39)
[2017-04-11] MEDS ORDERED: SOD CHLORIDE 0.9% 1,000 ML IV SCH (08:44)
--- NOTE | 2017-04-11 08:50 | OPR ---
Date/Time of Note Date/Time of Note DATE: 04/11/17 TIME: 08:48 Operative Report Procedure Date: Apr 11, 2017 Preoperative Diagnosis NSTEMI Postoperative Diagnosis NSTEMI Surgeon see signature line Diesel Retrofit Designer none Anesthesia Type: moderate sedation Estimated Blood Loss: 0 - 10 ml's Transfusion none Specimen none Grafts/Implants none Complications none Procedure Description Procedure Date: 04/11/2017 Meat Team Lead/surgeon: Tamika Elizabeth MD. Procedures Performed: 1)Balloon angioplasty and stenting of the prox/mid OM with a Tan 2.5 x 18 stent. 2)Balloon angioplasty and stenting of the mid LAD with a [place] 2.5 x 18 and 2.5 x 8 overlapping stents. Pre-operative Diagnosis:NSTEMI Post-operative Diagnosis:NSTEMI s/p PCI of OM and LAD Indications: 61 yo M with a h/o DM, CKD, who presented with chest pain and was found to have an NSTEMI. Cardiac cath showed three vessel disease involving the LAD, OM, RCA. As he was diabetic and had LV dysfunction (mild at 45%), the decision was made for CABG eval. He was evaluated by Dr. Schuler and thought to be high risk for CABG due to comorbidities. In discussion with the surgeon and patient, the decision was made for PCI instead. The pt understood the risks including renal failure and wished to proceed. Description of Procedure: After informed consent, the patient was brought to the cardiac catheterization lab. The procedure site was prepped and draped in usual manner. The patient was premedicated with versed 1 mg and fentanyl 25 mcg. 2 mL lidocaine was injected into the right wrist. Next using the posterior wall technique, the 6/ 5 gambian sheath was inserted into the right radial artery. The decision was made to proceed with PCI of the OM first. A Voda 3.0 guide was advanced and engaged into the left coronary artery. After appropriate anticoagulation and antiplatelets were given, the runthrough angioplasty wire was advanced past the lesion. Next the 2.5 X 12 balloon was used to dilate the lesion times 2 at a maximum of 8 sandra. Subsequently, the Tan 2.5 x 18 stent was advanced to the lesion and deployed at 12 sandra. Next the stent was post dilated with the 2.75 X 12 noncompliant balloon times 3 at a maximum of 14 sandra. Final angiography revealed BRYCE 3 flow, no edge dissection, and appropriate stent expansion. The decision was made to proceed with PCI of the LAD next. A Q-curve 3.0 guide was advanced and engaged into the left coronary artery. The Runthrough angioplasty wire was advanced past the LAD lesion and a second wire into the diagonal. Next the 2.0 X 12 balloon was used to dilate the LAD lesion times 2 at a maximum of 10 sandra. Subsequently, the [place] 2.5 x 18 stent was advanced to the lesion and deployed at 12 sandra after the diagonal wire was removed. Next the stent was post dilated with the 2.5 X 12 noncompliant balloon times 3 at a maximum of 14 sandra. Angiography showed possible haziness proximal to the stent in 2 views so the decision was made to cover this as well. An tan 2.5 x 8 stent was advanced and deployed at 12 sandra overlapping with the prior stent. The stent balloon was used to dilate the overlapping segment at 14 sandra. Final angiography revealed BRYCE 3 flow, no edge dissection, and appropriate stent expansion. Next all equipment was removed and hemostasis was achieved by TR band. Findings: Anatomy/Hemodynamics: Left main:normal LAD:mid 60% which was iFR positive Diagonal:small vessel (1.5mm) with ostial 70% and diffuse disease Circumflex:20-30% plaquing Obtuse marginal:prox 70%, mid 95% Contrast used: 150 mL Fluoroscopy time: 13.9 Medications used: Versed 1mg Fentanyl 25mcg Radial cocktail (heparin 2000 units, verapamil 2.5mg, NTG 200 mcg) angiomax ASA 81mg ticagrelor 180mg Equipment used: OM: 6 gambian Voda 3.0 guide Runthrough angioplasty wire 2.5 x 12 balloon [place] 2.5 x 18 drug eluting stent 2.75 x 12 noncompliant balloon LAD 6 gambian Q-curve 3.0 guide Runthrough angioplasty wire 2 x 12 balloon Tan 2.5 x 18 and 2.5 x 8 drug eluting stents (overlapping) 2.5 x 12 noncompliant balloon Estimated blood loss<10 mL. Specimen: none Grafts/implants: none Complications: none Assessment: NSTEMI with staged PCI of LAD and OM as patient was not a high risk surgical candidate as assessed by the cardiac surgeon CAD s/p PCI of OM and LAD. Has residual distal RCA which can be staged as outpt CKD: IV hydration ICM: EF 45% DM Plan: -monitor in ICU overnight -ASA 81mg lifelong -ticagrelor 90mg BID at least 1 year -monitor renal function -staged PCI of RCA most likely as outpt unless has recurrent symptoms TAMIKA ELIZABETH Apr 11, 2017 08:50
--- NOTE | 2017-04-11 08:50 | OPR ---
Date/Time of Note Date/Time of Note DATE: 04/11/17 TIME: 08:48 Operative Report Procedure Date: Apr 11, 2017 Preoperative Diagnosis NSTEMI Postoperative Diagnosis NSTEMI Surgeon see signature line Leveling Machine Operator none Anesthesia Type: moderate sedation Estimated Blood Loss: 0 - 10 ml's Transfusion none Specimen none Grafts/Implants none Complications none Procedure Description Procedure Date: 04/11/2017 Link Trainer Operator/surgeon: Tamika Elizabeth MD. Procedures Performed: 1)Balloon angioplasty and stenting of the prox/mid OM with a Tan 2.5 x 18 stent. 2)Balloon angioplasty and stenting of the mid LAD with a [place]inner 2.5 x 18 and 2.5 x 8 overlapping stents. Pre-operative Diagnosis:NSTEMI Post-operative Diagnosis:NSTEMI s/p PCI of OM and LAD Indications: 61 yo M with a h/o DM, CKD, who presented with chest pain and was found to have an NSTEMI. Cardiac cath showed three vessel disease involving the LAD, OM, RCA. As he was diabetic and had LV dysfunction (mild at 45%), the decision was made for CABG eval. He was evaluated by Dr. Schuler and thought to be high risk for CABG due to comorbidities. In discussion with the surgeon and patient, the decision was made for PCI instead. The pt understood the risks including renal failure and wished to proceed. Description of Procedure: After informed consent, the patient was brought to the cardiac catheterization lab. The procedure site was prepped and draped in usual manner. The patient was premedicated with versed 1 mg and fentanyl 25 mcg. 2 mL lidocaine was injected into the right wrist. Next using the posterior wall technique, the 6/ 5 turkish sheath was inserted into the right radial artery. The decision was made to proceed with PCI of the OM first. A Voda 3.0 guide was advanced and engaged into the left coronary artery. After appropriate anticoagulation and antiplatelets were given, the runthrough angioplasty wire was advanced past the lesion. Next the 2.5 X 12 balloon was used to dilate the lesion times 2 at a maximum of 8 sandra. Subsequently, the Tan 2.5 x 18 stent was advanced to the lesion and deployed at 12 sandra. Next the stent was post dilated with the 2.75 X 12 noncompliant balloon times 3 at a maximum of 14 sandra. Final angiography revealed BRYCE 3 flow, no edge dissection, and appropriate stent expansion. The decision was made to proceed with PCI of the LAD next. A Q-curve 3.0 guide was advanced and engaged into the left coronary artery. The Runthrough angioplasty wire was advanced past the LAD lesion and a second wire into the diagonal. Next the 2.0 X 12 balloon was used to dilate the LAD lesion times 2 at a maximum of 10 sandra. Subsequently, the Winner 2.5 x 18 stent was advanced to the lesion and deployed at 12 sandra after the diagonal wire was removed. Next the stent was post dilated with the 2.5 X 12 noncompliant balloon times 3 at a maximum of 14 sandra. Angiography showed possible haziness proximal to the stent in 2 views so the decision was made to cover this as well. An tan 2.5 x 8 stent was advanced and deployed at 12 sandra overlapping with the prior stent. The stent balloon was used to dilate the overlapping segment at 14 sandra. Final angiography revealed BRYCE 3 flow, no edge dissection, and appropriate stent expansion. Next all equipment was removed and hemostasis was achieved by TR band. Findings: Anatomy/Hemodynamics: Left main:normal LAD:mid 60% which was iFR positive Diagonal:small vessel (1.5mm) with ostial 70% and diffuse disease Circumflex:20-30% plaquing Obtuse marginal:prox 70%, mid 95% Contrast used: 150 mL Fluoroscopy time: 13.9 Medications used: Versed 1mg Fentanyl 25mcg Radial cocktail (heparin 2000 units, verapamil 2.5mg, NTG 200 mcg) angiomax ASA 81mg ticagrelor 180mg Equipment used: OM: 6 turkish Voda 3.0 guide Runthrough angioplasty wire 2.5 x 12 balloon Winner 2.5 x 18 drug eluting stent 2.75 x 12 noncompliant balloon LAD 6 turkish Q-curve 3.0 guide Runthrough angioplasty wire 2 x 12 balloon Tan 2.5 x 18 and 2.5 x 8 drug eluting stents (overlapping) 2.5 x 12 noncompliant balloon Estimated blood loss<10 mL. Specimen: none Grafts/implants: none Complications: none Assessment: NSTEMI with staged PCI of LAD and OM as patient was not a high risk surgical candidate as assessed by the cardiac surgeon CAD s/p PCI of OM and LAD. Has residual distal RCA which can be staged as outpt CKD: IV hydration ICM: EF 45% DM Plan: -monitor in ICU overnight -ASA 81mg lifelong -ticagrelor 90mg BID at least 1 year -monitor renal function -staged PCI of RCA most likely as outpt unless has recurrent symptoms TAMIKA ELIZABETH Apr 11, 2017 08:50
[2017-04-11] MEDS ORDERED: morphine 2 MG INJ IV PRN (09:00)
[2017-04-11] MEDS: SOD CHLORIDE 0.9% 1,000 ML IV SCH ×2 (09:51)
[2017-04-11] MEDS: INSULIN GLARGINE [LANtus] 3 ML PEN SC SCH (10:22)
[2017-04-11] MEDS: morphine 2 MG INJ IV PRN (12:41)
[2017-04-11] MEDS ORDERED: FUROSEMIDE 20 MG INJ IV ONE (13:00)
--- NOTE | 2017-04-11 13:57 | RADRPT ---
PROCEDURE: XR Chest. CLINICAL INDICATION: Cough. TECHNIQUE: Single frontal view of the chest was obtained COMPARISON: None FINDINGS: The heart is borderline enlarged. There is mild pulmonary vascular congestion. A possible consolidation is visualized in the right low er lobe. No evidence of pneumothorax. Degenerative changes of the spine and shoulder joints are present. IMPRESSION: 1. Mild pulmonary vascular ingestion with possible superimposed consolidation in the right lower lo be. Correlate for pneumonia. RPTAT:AAJJ Physician Fabienne Date Time Electronically viewed and signed by Linda Martinez Physician on 04/11/2017 13:57 QL/
--- NOTE | 2017-04-11 14:14 | RADRPT ---
Vent Rate: 106 bpm RR Interval: 0 msec [place] Interval: 176 msec QRS Duration: 68 msec QT Interval: 382 msec QTC Interval: 507 msec P-R-T [place]: 42 - 0 - 40 degrees Sinus tachycardia Low voltage QRS Nonspecific T wave abnormality Abnormal ECG Electronically Signed By: Nik Pandya [id number]
--- NOTE | 2017-04-11 14:14 | RADRPT ---
Vent Rate: 106 bpm RR Interval: 0 msec [place] Interval: 176 msec QRS Duration: 68 msec QT Interval: 382 msec QTC Interval: 507 msec P-R-T [place]: 42 - 0 - 40 degrees Sinus tachycardia Low voltage QRS Nonspecific T wave abnormality Abnormal ECG Electronically Signed By: Nik Pandya [id number]
--- NOTE | 2017-04-11 14:29 | CONS ---
Date/Time of Note Date/Time of Note DATE: 04/11/17 TIME: 14:25 Assessment/Plan Assessment/Plan Chief Complaint/Hosp Course Assessment: NSTEMI Three-vessel coronary artery disease - status post PCI to LAD and OM 04/11/2017, residual RCA disease Ischemic cardiomyopathy - LVEF 45-50% Acute kidney injury vs chronic kidney disease Hypertension Dyslipidemia Insulin-dependent diabetes mellitus Recommendations: -aspirin 81mg daily indefinitely -ticagrelor 90mg BID for at least one year -continue atorvastatin 40mg daily -continue carvedilol 6.25mg BID -hold off on ACEI/ARB due to renal failure -monitor renal function -anticipate discharge tomorrow if remains clinically stable Problems: Consultation Date/Type/Reason Admit Date/Time Apr 05, 2017 at 13:23 Type of Consultation: Cardiology 24 HR Interval Summary Free Text/Dictation Status post PCI to LAD and OM. Doing well post-procedure. No chest pain. Right radial artery access site intact. Detailed Summary Additional Comments 14 point review of systems without changes. Exam/Review of Systems Vital Signs Vitals Vital Signs Date Time Temp Pulse Resp B/P Pulse Ox O2 Delivery O2 Flow Rate FiO2 04/11/17 13:00 70 13 130/86 99 04/11/17 09:18 97.8 Room Air 04/11/17 02:50 21 04/09/17 16:51 2.0 Intake and Output 04/10/17 04/10/17 04/11/17 15:00 23:00 07:00 Intake Total 1280 ml 280 ml Output Total 502 ml Balance 778 ml 280 ml Exam Constitutional: alert, obese, well developed Psych: nl mood/affect, no complaints Head: normocephalic Eyes: nl conjunctiva, nl lids ENMT: nl external ears & nose, nl nasal mucosa & septum Neck: non-tender, supple, No jvd Respiratory: diminished breath sounds, No wheezing Cardiovascular: regular rate and rhythm, No murmurs/extra sounds Gastrointestinal: non-tender, soft Musculoskeletal: nl extremities to inspection, No joint tenderness Extremities: No clubbing, No cyanosis, No edema Neurological: nl mental status, nl speech Skin: nl turgor Results Result Diagram: 04/11/17 1014 04/11/17 1014 Results 24 hrs Laboratory Tests Test 04/10/17 17:04 04/10/17 20:16 04/11/17 09:35 04/11/17 10:14 Bedside Glucose 90 84 131 White Blood Count 6.8 Red Blood Count 2.97 L Hemoglobin 8.5 L Hematocrit 26.8 L Mean Corpuscular Volume 90.2 Mean Corpuscular Hemoglobin 28.6 L Mean Corpuscular Hemoglobin Concent 31.7 L Red Cell Distribution Width 12.9 Platelet Count 250 Mean Platelet Volume 10.7 H Neutrophils % 57.2 Lymphocytes % 27.2 Monocytes % 10.6 Eosinophils % 4.0 Basophils % 0.4 Nucleated Red Blood Cells % 0.0 Neutrophils # 3.9 Lymphocytes # 1.9 Monocytes # 0.7 Eosinophils # 0.3 Basophils # 0.0 Nucleated Red Blood Cells # 0.0 Sodium Level 141 Potassium Level 4.3 Chloride Level 110 Carbon Dioxide Level 23 Anion Gap 12 Blood Urea Nitrogen 36 H Creatinine 2.05 H Glucose Level 117 Calcium Level 7.9 L Medications Medications Current Medications Ondansetron HCl (Zofran Inj) 4 mg Q6H PRN IV NAUSEA AND/OR VOMITING; Start at 14:30 Acetaminophen (Tylenol Supp) 650 mg Q6H PRN [place] PAIN LEVEL 1-3 OR FEVER; Start 04/05/17 at 14:30 Docusate Sodium (Colace) 100 mg Q12H PRN PO CONSTIPATION; Start 04/05/17 at 14 :30 Magnesium Hydroxide (Milk Of Mag) 30 ml DAILY PRN PO CONSTIPATION; Start 04/05 at 14:30 Zolpidem Tartrate (Ambien) 5 mg QHS PRN PO SLEEP Last administered on 22:37; Admin Dose 5 MG; Start 04/05/17 at 14:30 Carvedilol (Coreg) 6.25 mg BID PO Last administered on 04/11/17 10:21; Admin Dose 6.25 MG; Start 04/05/17 at 21:00 Nitroglycerin (Nitroglycerin (Sl Tab) 0.4 Mg) 1 tab Q5M PRN SL CHEST PAIN; Start 04/05/17 at 14:30 Morphine Sulfate (morphine) 2 mg Q2H PRN IV PAIN LEVEL 4-6 Last administered on 04/11/17 12:41; Admin Dose 2 MG; Start 04/05/17 at 14:30 Morphine Sulfate (morphine) 4 mg Q2H PRN IV PAIN LEVEL 7-10 Last administered on 04/08/17 20:40; Admin Dose 4 MG; Start 04/05/17 at 14:30 Diagnostic Test (Pha) (Accu-Chek) 1 ea 02 XX ; Start 04/06/17 at 02:00 Miscellaneous Information 1 ea NOTE XX ; Start 04/05/17 at 16:00 Glucose (Glutose) 15 gm Q15M PRN PO DECREASED GLUCOSE; Start 04/05/17 at 16:00 Glucose (Glutose) 22.5 gm Q15M PRN PO DECREASED GLUCOSE; Start 04/05/17 at 16: 00 Dextrose (D50w Syringe) 25 ml Q15M PRN IV DECREASED GLUCOSE; Start 04/05/17 at 16:00 Dextrose (D50w Syringe) 50 ml Q15M PRN IV DECREASED GLUCOSE; Start 04/05/17 at 16:00 Glucagon (Glucagen) 1 mg Q15M PRN IM DECREASED GLUCOSE; Start 04/05/17 at 16: 00 Glucose (Glutose) 15 gm Q15M PRN BUCCAL DECREASED GLUCOSE; Start 04/05/17 at 16:00 Insulin Glargine (Lantus) 20 unit DAILY@08 SC Last administered on 04/11/17 10 :22; Admin Dose 20 UNIT; Start 04/07/17 at 08:00 Atorvastatin Calcium (Lipitor) 40 mg HS PO Last administered on 04/10/17 20:20 ; Admin Dose 40 MG; Start 04/06/17 at 21:00 Guaifenesin/ Dextromethorphan 10 ml 10 ml Q4H PRN PO COUGH Last administered on 04/11/17 02:18; Admin Dose 10 ML; Start 04/07/17 at 22:00 Ferric Sodium Gluconate Complex 125 mg/Sodium Chloride 110 ml @ 100 mls/hr Q24H IVPB Last administered on 04/10/17 17:27; Admin Dose 100 MLS/HR; Start 04/09/17 at 18:00; Stop 04/11/17 at 19:05 Sodium Chloride (NS) 1,000 ml @ 100 mls/hr Q10H IV Last administered on 00:00; Admin Dose 100 MLS/HR; Start 04/11/17 at 00:00 Aspirin (Aspirin) 81 mg DAILY PO ; Start 04/12/17 at 09:00 Ticagrelor (Brilinta) 90 mg BID PO ; Start 04/11/17 at 21:00 Morphine Sulfate (morphine) 2 mg Q2H PRN IV FOR NON CARDIAC PAIN (4-10); Start 04/11/17 at 09:00 JAKI GRADY MD Apr 11, 2017 14:28
--- NOTE | 2017-04-11 15:12 | PN ---
Date/Time of Note Date/Time of Note DATE: 04/11/17 TIME: 15:10 Assessment/Plan VTE Prophylaxis VTE Prophylaxis Intervention: LMWH Lines/Catheters [facility] Urinary Cath still in place: No Assessment/Plan Chief Complaint/Hosp Course 61 yo male wtih CAD s/p [place] and 3 vessel disease on angiography, s/p PCI - Continue aspirin, plaix, statin, beta thomas per cards - s/p PCI x2, stage PCI as outpatient - Lasix for acute diastolic CHF decompensation DMII: - Continue basal/bolus insulin Morbid obesity: - Weight loss/lifestyle modifications discussed ADITHYA vs CKD: - monitor renal function - Low dose SAMANTHA fine given likely diabetic CKD Anemia: - Mild iron defiiency present, will supplement dispo plan pending Problems: Subjective 24 Hr Interval Summary Free Text/Dictation PCI x 2 this AM, plan for staged to 3rd vessel as outpatient Received IV volume expansion Seen post procedure, patient complaining of cough and SOB, orthopnea, mildly hypoxic. Started on lasix Exam/Review of Systems Vital Signs Vitals Vital Signs Date Time Temp Pulse Resp B/P Pulse Ox O2 Delivery O2 Flow Rate FiO2 04/11/17 13:00 70 13 130/86 99 04/11/17 09:18 97.8 Room Air 04/11/17 02:50 21 04/09/17 16:51 2.0 Intake and Output 04/10/17 04/10/17 04/11/17 15:00 23:00 07:00 Intake Total 1280 ml 280 ml Output Total 502 ml Balance 778 ml 280 ml Exam ++ JVD Constitutional: alert, oriented, well developed Psych: nl mood/affect, no complaints Head: atraumatic, normocephalic Eyes: EOMI, PERRL, nl conjunctiva, nl lids, nl sclera ENMT: nl external ears & nose, nl lips & teeth, nl nasal mucosa & septum Neck: non-tender, supple Respiratory: clear to auscultation, normal air movement Cardiovascular: nl pulses, regular rate and rhythm Gastrointestinal: nl liver, spleen, non-tender, soft Musculoskeletal: nl extremities to inspection, nl gait and stance Extremities: normal pulses Neurological: [employer] MA[employer] M[employer] C[employer]ER II-XII intact, nl mental status, nl speech, nl strength Skin: nl turgor, No rash or lesions Lymph: nl lymph nodes Results Result Diagram: 04/11/17 1014 04/11/17 1014 Results 24 hrs Laboratory Tests Test 04/10/17 17:04 04/10/17 20:16 04/11/17 09:35 04/11/17 10:14 Bedside Glucose 90 84 131 White Blood Count 6.8 Red Blood Count 2.97 L Hemoglobin 8.5 L Hematocrit 26.8 L Mean Corpuscular Volume 90.2 Mean Corpuscular Hemoglobin 28.6 L Mean Corpuscular Hemoglobin Concent 31.7 L Red Cell Distribution Width 12.9 Platelet Count 250 Mean Platelet Volume 10.7 H Neutrophils % 57.2 Lymphocytes % 27.2 Monocytes % 10.6 Eosinophils % 4.0 Basophils % 0.4 Nucleated Red Blood Cells % 0.0 Neutrophils # 3.9 Lymphocytes # 1.9 Monocytes # 0.7 Eosinophils # 0.3 Basophils # 0.0 Nucleated Red Blood Cells # 0.0 Sodium Level 141 Potassium Level 4.3 Chloride Level 110 Carbon Dioxide Level 23 Anion Gap 12 Blood Urea Nitrogen 36 H Creatinine 2.05 H Glucose Level 117 Calcium Level 7.9 L Medications Medications Current Medications Ondansetron HCl (Zofran Inj) 4 mg Q6H PRN IV NAUSEA AND/OR VOMITING; Start at 14:30 Acetaminophen (Tylenol Supp) 650 mg Q6H PRN [place] PAIN LEVEL 1-3 OR FEVER; Start 04/05/17 at 14:30 Docusate Sodium (Colace) 100 mg Q12H PRN PO CONSTIPATION; Start 04/05/17 at 14 :30 Magnesium Hydroxide (Milk Of Mag) 30 ml DAILY PRN PO CONSTIPATION; Start 04/05 at 14:30 Zolpidem Tartrate (Ambien) 5 mg QHS PRN PO SLEEP Last administered on 22:37; Admin Dose 5 MG; Start 04/05/17 at 14:30 Carvedilol (Coreg) 6.25 mg BID PO Last administered on 04/11/17 10:21; Admin Dose 6.25 MG; Start 04/05/17 at 21:00 Nitroglycerin (Nitroglycerin (Sl Tab) 0.4 Mg) 1 tab Q5M PRN SL CHEST PAIN; Start 04/05/17 at 14:30 Morphine Sulfate (morphine) 2 mg Q2H PRN IV PAIN LEVEL 4-6 Last administered on 04/11/17 12:41; Admin Dose 2 MG; Start 04/05/17 at 14:30 Morphine Sulfate (morphine) 4 mg Q2H PRN IV PAIN LEVEL 7-10 Last administered on 04/08/17 20:40; Admin Dose 4 MG; Start 04/05/17 at 14:30 Diagnostic Test (Pha) (Accu-Chek) 1 ea 02 XX ; Start 04/06/17 at 02:00 Miscellaneous Information 1 ea NOTE XX ; Start 04/05/17 at 16:00 Glucose (Glutose) 15 gm Q15M PRN PO DECREASED GLUCOSE; Start 04/05/17 at 16:00 Glucose (Glutose) 22.5 gm Q15M PRN PO DECREASED GLUCOSE; Start 04/05/17 at 16: 00 Dextrose (D50w Syringe) 25 ml Q15M PRN IV DECREASED GLUCOSE; Start 04/05/17 at 16:00 Dextrose (D50w Syringe) 50 ml Q15M PRN IV DECREASED GLUCOSE; Start 04/05/17 at 16:00 Glucagon (Glucagen) 1 mg Q15M PRN IM DECREASED GLUCOSE; Start 04/05/17 at 16: 00 Glucose (Glutose) 15 gm Q15M PRN BUCCAL DECREASED GLUCOSE; Start 04/05/17 at 16:00 Insulin Glargine (Lantus) 20 unit DAILY@08 SC Last administered on 04/11/17 10 :22; Admin Dose 20 UNIT; Start 04/07/17 at 08:00 Atorvastatin Calcium (Lipitor) 40 mg HS PO Last administered on 04/10/17 20:20 ; Admin Dose 40 MG; Start 04/06/17 at 21:00 Guaifenesin/ Dextromethorphan 10 ml 10 ml Q4H PRN PO COUGH Last administered on 04/11/17 02:18; Admin Dose 10 ML; Start 04/07/17 at 22:00 Ferric Sodium Gluconate Complex/ Sodium Chloride (Ferrlecit/NS) 110 ml @ 100 mls/hr Q24H IVPB Last administered on 04/10/17 17:27; Admin Dose 100 MLS/HR; Start 04/09/17 at 18:00; Stop 04/11/17 at 19:05 Aspirin (Aspirin) 81 mg DAILY PO ; Start 11/4/17 at 09:00 Ticagrelor (Brilinta) 90 mg BID PO ; Start 04/11/17 at 21:00 Morphine Sulfate (morphine) 2 mg Q2H PRN IV FOR NON CARDIAC PAIN (4-10); Start 04/11/17 at 09:00 BHARATH KING MD Apr 11, 2017 15:12
[2017-04-11] MEDS: SOD FERRIC GLUC COMPLX 125 MG in SOD CHLORIDE 0.9% 100 ML IVPB SCH (17:09)
[2017-04-11] MEDS: FUROSEMIDE 20 MG INJ IV SCH (17:09)
[2017-04-11] MEDS: ATORVASTATIN 40 MG TAB PO SCH (20:32)
[2017-04-11] MEDS: TICAGRELOR 90 MG TABLET PO SCH (23:32)
[2017-04-11] MEDS: ZOLPIDEM 5 MG TAB PO PRN (23:32)
[2017-04-12] VITALS (12 sets, daily range): BP systolic 112–157; BP diastolic 65–78; PULSE 60–82; RESP 16–20
[2017-04-12] MEDS: ACCU-CHEK XX SCH (02:00)
[2017-04-12] MEDS: FUROSEMIDE 20 MG INJ IV SCH ×2 (06:17→17:21)
[2017-04-12] MEDS: INSULIN ASPART [NOVOLOG] 3 ML PEN SC SCH ×7 (07:30→20:48)
[2017-04-12] MEDS: ASPIRIN 81 MG TAB PO SCH (08:36)
[2017-04-12] MEDS: TICAGRELOR 90 MG TABLET PO SCH ×2 (08:37→20:47)
[2017-04-12] MEDS: INSULIN GLARGINE [LANtus] 3 ML PEN SC SCH (08:45)
[2017-04-12] MEDS: GUAIFENESIN/DM 5ML CUP PO PRN ×2 (08:59→20:59)
--- NOTE | 2017-04-12 12:29 | CONS ---
Date/Time of Note Date/Time of Note DATE: 04/12/17 TIME: 12:26 Assessment/Plan Assessment/Plan Chief Complaint/Hosp Course NSTEMI: s/p PCI of LAD and OM Acute systolic heart failure: EF 45%. Mild decompensation Three-vessel coronary artery disease - status post PCI to LAD and OM 04/11/2017, residual RCA disease Ischemic cardiomyopathy - LVEF 45-50% Chronic kidney disease: Cr stable so far post cath Hypertension Dyslipidemia Insulin-dependent diabetes mellitus -agree with lasix 20mg IV BID -keep in hospital one more day. If renal function stable tomorrow and symptoms resolve, ok for d/c . May not need [facility] diuretics -aspirin 81mg daily indefinitely -ticagrelor 90mg BID for at least one year -continue atorvastatin 40mg daily -continue carvedilol 6.25mg BID -hold off on ACEI/ARB due to renal failure Problems: Consultation Date/Type/Reason Admit Date/Time Apr 05, 2017 at 13:23 Initial Consult Date Type of Consultation: Cardiology 24 HR Interval Summary Free Text/Dictation Had some SOB and orthopnea overnight. Was given lasix. Feels better but still mild dyspnea. Exam/Review of Systems Vital Signs Vitals Vital Signs Date Time Temp Pulse Resp B/P Pulse Ox O2 Delivery O2 Flow Rate FiO2 04/12/17 12:02 72 04/12/17 11:37 98.2 20 112/77 97 04/11/17 09:18 Room Air 04/11/17 02:50 21 04/09/17 16:51 2.0 Intake and Output 04/11/17 04/11/17 04/12/17 15:00 23:00 07:00 Intake Total 720 ml 1730 ml 250 ml Output Total 550 ml 1800 ml Balance 170 ml -70 ml 250 ml Exam Constitutional: alert, oriented Psych: nl mood/affect Head: atraumatic, normocephalic Neck: jvd (8cm) Respiratory: No clear to auscultation (mild crackles ) Cardiovascular: edema (1+), regular rate and rhythm, No systolic murmur Gastrointestinal: non-tender, soft Neurological: nl mental status, nl speech Results Result Diagram: 04/12/17 0843 04/12/17 0843 Results 24 hrs Laboratory Tests Test 04/11/17 17:08 04/11/17 20:29 04/12/17 08:00 04/12/17 08:43 Bedside Glucose 194 117 119 White Blood Count 8.0 Red Blood Count 3.18 L Hemoglobin 9.7 L Hematocrit 29.1 L Mean Corpuscular Volume 91.5 Mean Corpuscular Hemoglobin 30.5 Mean Corpuscular Hemoglobin Concent 33.3 Red Cell Distribution Width 12.8 Platelet Count 305 # Mean Platelet Volume 10.8 H Neutrophils % 66.9 Lymphocytes % 19.0 Monocytes % 9.9 Eosinophils % 3.0 Basophils % 0.8 Nucleated Red Blood Cells % 0.0 Neutrophils # 5.4 Lymphocytes # 1.5 Monocytes # 0.8 Eosinophils # 0.2 Basophils # 0.1 Nucleated Red Blood Cells # 0.0 Sodium Level 143 Potassium Level 3.9 Chloride Level 107 Carbon Dioxide Level 25 Anion Gap 15 Blood Urea Nitrogen 35 H Creatinine 2.10 H Glucose Level 113 Calcium Level 8.5 Total Bilirubin 0.3 Direct Bilirubin 0.00 Indirect Bilirubin 0.3 Aspartate Amino Transf (AST/SGOT) 40 Alanine Aminotransferase (ALT/SGPT) 36 Alkaline Phosphatase 90 Total Protein 6.7 Albumin 3.5 Globulin 3.20 Albumin/Globulin Ratio 1.09 Test 04/12/17 11:51 Bedside Glucose 121 Medications Medications Current Medications Ondansetron HCl (Zofran Inj) 4 mg Q6H PRN IV NAUSEA AND/OR VOMITING; Start at 14:30 Acetaminophen (Tylenol Supp) 650 mg Q6H PRN [place] PAIN LEVEL 1-3 OR FEVER; Start 04/05/17 at 14:30 Docusate Sodium (Colace) 100 mg Q12H PRN PO CONSTIPATION; Start 04/05/17 at 14 :30 Magnesium Hydroxide (Milk Of Mag) 30 ml DAILY PRN PO CONSTIPATION; Start 04/05 at 14:30 Zolpidem Tartrate (Ambien) 5 mg QHS PRN PO SLEEP Last administered on 23:32; Admin Dose 5 MG; Start 04/05/17 at 14:30 Carvedilol (Coreg) 6.25 mg BID PO Last administered on 04/12/17 08:38; Admin Dose 6.25 MG; Start 04/05/17 at 21:00 Nitroglycerin (Nitroglycerin (Sl Tab) 0.4 Mg) 1 tab Q5M PRN SL CHEST PAIN; Start 04/05/17 at 14:30 Morphine Sulfate (morphine) 2 mg Q2H PRN IV PAIN LEVEL 4-6 Last administered on 04/11/17 12:41; Admin Dose 2 MG; Start 04/05/17 at 14:30 Morphine Sulfate (morphine) 4 mg Q2H PRN IV PAIN LEVEL 7-10 Last administered on 04/08/17 20:40; Admin Dose 4 MG; Start 04/05/17 at 14:30 Diagnostic Test (Pha) (Accu-Chek) 1 ea 02 XX ; Start 04/06/17 at 02:00 Miscellaneous Information 1 ea NOTE XX ; Start 04/05/17 at 16:00 Glucose (Glutose) 15 gm Q15M PRN PO DECREASED GLUCOSE; Start 04/05/17 at 16:00 Glucose (Glutose) 22.5 gm Q15M PRN PO DECREASED GLUCOSE; Start 04/05/17 at 16: 00 Dextrose (D50w Syringe) 25 ml Q15M PRN IV DECREASED GLUCOSE; Start 04/05/17 at 16:00 Dextrose (D50w Syringe) 50 ml Q15M PRN IV DECREASED GLUCOSE; Start 04/05/17 at 16:00 Glucagon (Glucagen) 1 mg Q15M PRN IM DECREASED GLUCOSE; Start 04/05/17 at 16: 00 Glucose (Glutose) 15 gm Q15M PRN BUCCAL DECREASED GLUCOSE; Start 04/05/17 at 16:00 Insulin Glargine (Lantus) 20 unit DAILY@08 SC Last administered on 04/12/17 08 :45; Admin Dose 20 UNIT; Start 04/07/17 at 08:00 Atorvastatin Calcium (Lipitor) 40 mg HS PO Last administered on 04/11/17 20:32 ; Admin Dose 40 MG; Start 04/06/17 at 21:00 Guaifenesin/ Dextromethorphan (Robitussin Dm Liquid Cup) 10 ml Q4H PRN PO COUGH Last administered on 04/12/17 08:59; Admin Dose 10 ML; Start 04/07/17 at 22:00 Aspirin (Aspirin) 81 mg DAILY PO Last administered on 04/12/17 08:36; Admin Dose 81 MG; Start 04/12/17 at 09:00 Ticagrelor (Brilinta) 90 mg BID PO Last administered on 04/12/17t 08:37; Admin Dose 90 MG; Start 04/11/17 at 21:00 Morphine Sulfate (morphine) 2 mg Q2H PRN IV FOR NON CARDIAC PAIN (4-10); Start 04/11/17 at 09:00 TAMIKA RAMACHANDRAN Apr 12, 2017 12:29
--- NOTE | 2017-04-12 13:59 | PN ---
Date/Time of Note Date/Time of Note DATE: 04/12/17 TIME: 13:58 Assessment/Plan VTE Prophylaxis VTE Prophylaxis Intervention: LMWH Lines/Catheters IV [facility] ([facility] Saline Lock Urinary Cath still in place: No Assessment/Plan Chief Complaint/Hosp Course 61 yo male wtih CAD s/p [place] and 3 vessel disease on angiography, s/p PCI - Continue aspirin, plaix, statin, beta thomas per cards - s/p PCI x2, stage PCI as outpatient - Lasix BID for acute diastolic CHF decompensation in setting of IVF given for renal protection, likely wont need diuretics at discharge DMII: - Continue basal/bolus insulin Morbid obesity: - Weight loss/lifestyle modifications discussed ADITHYA vs CKD: - monitor renal function - Low dose SAMANTHA fine given likely diabetic CKD Anemia: - Mild iron defiiency present, will supplement dispo plan pending Problems: Subjective 24 Hr Interval Summary Free Text/Dictation Doing well, SOB inpromved, still slightly hypervolemic Exam/Review of Systems Vital Signs Vitals Vital Signs Date Time Temp Pulse Resp B/P Pulse Ox O2 Delivery O2 Flow Rate FiO2 04/12/17 12:02 72 04/12/17 11:37 98.2 20 112/77 97 04/11/17 09:18 Room Air 04/11/17 02:50 21 04/09/17 16:51 2.0 Intake and Output 04/11/17 04/11/17 04/12/17 15:00 23:00 07:00 Intake Total 720 ml 1730 ml 250 ml Output Total 550 ml 1800 ml Balance 170 ml -70 ml 250 ml Exam + JVD Results Result Diagram: 04/12/17 0843 04/12/17 0843 Results 24 hrs Laboratory Tests Test 04/11/17 17:08 04/11/17 20:29 04/12/17 08:00 04/12/17 08:43 Bedside Glucose 194 117 119 White Blood Count 8.0 Red Blood Count 3.18 L Hemoglobin 9.7 L Hematocrit 29.1 L Mean Corpuscular Volume 91.5 Mean Corpuscular Hemoglobin 30.5 Mean Corpuscular Hemoglobin Concent 33.3 Red Cell Distribution Width 12.8 Platelet Count 305 # Mean Platelet Volume 10.8 H Neutrophils % 66.9 Lymphocytes % 19.0 Monocytes % 9.9 Eosinophils % 3.0 Basophils % 0.8 Nucleated Red Blood Cells % 0.0 Neutrophils # 5.4 Lymphocytes # 1.5 Monocytes # 0.8 Eosinophils # 0.2 Basophils # 0.1 Nucleated Red Blood Cells # 0.0 Sodium Level 143 Potassium Level 3.9 Chloride Level 107 Carbon Dioxide Level 25 Anion Gap 15 Blood Urea Nitrogen 35 H Creatinine 2.10 H Glucose Level 113 Calcium Level 8.5 Total Bilirubin 0.3 Direct Bilirubin 0.00 Indirect Bilirubin 0.3 Aspartate Amino Transf (AST/SGOT) 40 Alanine Aminotransferase (ALT/SGPT) 36 Alkaline Phosphatase 90 Total Protein 6.7 Albumin 3.5 Globulin 3.20 Albumin/Globulin Ratio 1.09 Test 04/12/17 11:51 Bedside Glucose 121 Medications Medications Current Medications Ondansetron HCl (Zofran Inj) 4 mg Q6H PRN IV NAUSEA AND/OR VOMITING; Start at 14:30 Acetaminophen (Tylenol Supp) 650 mg Q6H PRN [place] PAIN LEVEL 1-3 OR FEVER; Start 04/05/17 at 14:30 Docusate Sodium (Colace) 100 mg Q12H PRN PO CONSTIPATION; Start 04/05/17 at 14 :30 Magnesium Hydroxide (Milk Of Mag) 30 ml DAILY PRN PO CONSTIPATION; Start 04/05 at 14:30 Zolpidem Tartrate (Ambien) 5 mg QHS PRN PO SLEEP Last administered on 23:32; Admin Dose 5 MG; Start 04/05/17 at 14:30 Carvedilol (Coreg) 6.25 mg BID PO Last administered on 04/12/17 08:38; Admin Dose 6.25 MG; Start 04/05/17 at 21:00 Nitroglycerin (Nitroglycerin (Sl Tab) 0.4 Mg) 1 tab Q5M PRN SL CHEST PAIN; Start 04/05/17 at 14:30 Morphine Sulfate (morphine) 2 mg Q2H PRN IV PAIN LEVEL 4-6 Last administered on 04/11/17 12:41; Admin Dose 2 MG; Start 04/05/17 at 14:30 Morphine Sulfate (morphine) 4 mg Q2H PRN IV PAIN LEVEL 7-10 Last administered on 04/08/17 20:40; Admin Dose 4 MG; Start 04/05/17 at 14:30 Diagnostic Test (Pha) (Accu-Chek) 1 ea 02 XX ; Start 04/06/17 at 02:00 Miscellaneous Information 1 ea NOTE XX ; Start 04/05/17 at 16:00 Glucose (Glutose) 15 gm Q15M PRN PO DECREASED GLUCOSE; Start 04/05/17 at 16:00 Glucose (Glutose) 22.5 gm Q15M PRN PO DECREASED GLUCOSE; Start 04/05/17 at 16: 00 Dextrose (D50w Syringe) 25 ml Q15M PRN IV DECREASED GLUCOSE; Start 04/05/17 at 16:00 Dextrose (D50w Syringe) 50 ml Q15M PRN IV DECREASED GLUCOSE; Start 04/05/17 at 16:00 Glucagon (Glucagen) 1 mg Q15M PRN IM DECREASED GLUCOSE; Start 04/05/17 at 16: 00 Glucose (Glutose) 15 gm Q15M PRN BUCCAL DECREASED GLUCOSE; Start 04/05/17 at 16:00 Insulin Glargine (Lantus) 20 unit DAILY@08 SC Last administered on 04/12/17 08 :45; Admin Dose 20 UNIT; Start 04/07/17 at 08:00 Atorvastatin Calcium (Lipitor) 40 mg HS PO Last administered on 04/11/17 20:32 ; Admin Dose 40 MG; Start 04/06/17 at 21:00 Guaifenesin/ Dextromethorphan (Robitussin Dm Liquid Cup) 10 ml Q4H PRN PO COUGH Last administered on 04/12/17 08:59; Admin Dose 10 ML; Start 04/07/17 at 22:00 Aspirin (Aspirin) 81 mg DAILY PO Last administered on 04/12/17 08:36; Admin Dose 81 MG; Start 04/12/17 at 09:00 Ticagrelor (Brilinta) 90 mg BID PO Last administered on 04/12/17 08:37; Admin Dose 90 MG; Start 04/11/17 at 21:00 Morphine Sulfate (morphine) 2 mg Q2H PRN IV FOR NON CARDIAC PAIN (4-10); Start 04/11/17 at 09:00 BHARATH KING MD Apr 12, 2017 13:59
[2017-04-12] MEDS: ATORVASTATIN 40 MG TAB PO SCH (20:48)
[2017-04-13] VITALS (8 sets, daily range): BP systolic 126–140; BP diastolic 68–81; PULSE 56–71; RESP 18–20
[2017-04-13] MEDS: ACCU-CHEK XX SCH (02:00)
[2017-04-13] MEDS: FUROSEMIDE 20 MG INJ IV SCH (05:49)
[2017-04-13] MEDS: INSULIN ASPART [NOVOLOG] 3 ML PEN SC SCH ×4 (07:30→13:05)
--- NOTE | 2017-04-13 07:56 | CONS ---
Date/Time of Note Date/Time of Note DATE: 04/13/17 TIME: 07:53 Assessment/Plan Assessment/Plan Chief Complaint/Hosp Course NSTEMI: s/p PCI of LAD and OM Acute systolic heart failure: EF 45%. Mild decompensation but iatrogenic due to hydration to prevent ELIE. Now euvolemic Three-vessel coronary artery disease - status post PCI to LAD and OM 04/11/2017, residual RCA disease Ischemic cardiomyopathy - LVEF 45-50% Chronic kidney disease: Cr stable so far post cath Hypertension Dyslipidemia Insulin-dependent diabetes mellitus -check labs this am (ordered) -If Cr stable, ok for d/c -no lasix as outpt at this time. Should have cardiology f/u in 1-2 weeks to determine need for ongoing lasix and to plan for staged PCI of RCA -aspirin 81mg daily indefinitely -ticagrelor 90mg BID for at least one year -continue atorvastatin 40mg daily -continue carvedilol 6.25mg BID -can start ACEI/ARB as outpt Problems: Consultation Date/Type/Reason Admit Date/Time Apr 05, 2017 at 13:23 Type of Consultation: Cardiology 24 HR Interval Summary Free Text/Dictation No o/n events. No further SOB. Able to lay flat. No chest pain Exam/Review of Systems Vital Signs Vitals Vital Signs Date Time Temp Pulse Resp B/P Pulse Ox O2 Delivery O2 Flow Rate FiO2 04/13/17 05:03 98.6 78 18 126/73 96 04/11/17 09:18 Room Air 04/11/17 02:50 21 04/09/17 16:51 2.0 Intake and Output 04/12/17 04/12/17 04/13/17 15:00 23:00 07:00 Intake Total 1200 ml 450 ml Balance 1200 ml 450 ml Exam Constitutional: alert, oriented Psych: nl mood/affect, no complaints Head: normocephalic Eyes: nl conjunctiva Neck: No jvd Respiratory: clear to auscultation, No crackles/rales Cardiovascular: edema (trace), regular rate and rhythm Gastrointestinal: non-tender, soft Neurological: nl mental status, nl speech Results Result Diagram: 04/12/17 0843 04/12/17 0843 Results 24 hrs Laboratory Tests Test 04/12/17 08:00 04/12/17 08:43 04/12/17 11:51 04/12/17 17:07 Bedside Glucose 119 121 90 White Blood Count 8.0 Red Blood Count 3.18 L Hemoglobin 9.7 L Hematocrit 29.1 L Mean Corpuscular Volume 91.5 Mean Corpuscular Hemoglobin 30.5 Mean Corpuscular Hemoglobin Concent 33.3 Red Cell Distribution Width 12.8 Platelet Count 305 # Mean Platelet Volume 10.8 H Neutrophils % 66.9 Lymphocytes % 19.0 Monocytes % 9.9 Eosinophils % 3.0 Basophils % 0.8 Nucleated Red Blood Cells % 0.0 Neutrophils # 5.4 Lymphocytes # 1.5 Monocytes # 0.8 Eosinophils # 0.2 Basophils # 0.1 Nucleated Red Blood Cells # 0.0 Sodium Level 143 Potassium Level 3.9 Chloride Level 107 Carbon Dioxide Level 25 Anion Gap 15 Blood Urea Nitrogen 35 H Creatinine 2.10 H Glucose Level 113 Calcium Level 8.5 Total Bilirubin 0.3 Direct Bilirubin 0.00 Indirect Bilirubin 0.3 Aspartate Amino Transf (AST/SGOT) 40 Alanine Aminotransferase (ALT/SGPT) 36 Alkaline Phosphatase 90 Total Protein 6.7 Albumin 3.5 Globulin 3.20 Albumin/Globulin Ratio 1.09 Test 04/12/17 20:45 Bedside Glucose 105 Medications Medications Current Medications Ondansetron HCl (Zofran Inj) 4 mg Q6H PRN IV NAUSEA AND/OR VOMITING; Start at 14:30 Acetaminophen (Tylenol Supp) 650 mg Q6H PRN [place] PAIN LEVEL 1-3 OR FEVER; Start 04/05/17 at 14:30 Docusate Sodium (Colace) 100 mg Q12H PRN PO CONSTIPATION; Start 04/05/17 at 14 :30 Magnesium Hydroxide (Milk Of Mag) 30 ml DAILY PRN PO CONSTIPATION; Start 04/05 at 14:30 Zolpidem Tartrate (Ambien) 5 mg QHS PRN PO SLEEP Last administered on 23:32; Admin Dose 5 MG; Start 04/05/17 at 14:30 Carvedilol (Coreg) 6.25 mg BID PO Last administered on 04/12/17 20:48; Admin Dose 6.25 MG; Start 04/05/17 at 21:00 Nitroglycerin (Nitroglycerin (Sl Tab) 0.4 Mg) 1 tab Q5M PRN SL CHEST PAIN; Start 04/05/17 at 14:30 Morphine Sulfate (morphine) 2 mg Q2H PRN IV PAIN LEVEL 4-6 Last administered on 04/11/17 12:41; Admin Dose 2 MG; Start 04/05/17 at 14:30 Morphine Sulfate (morphine) 4 mg Q2H PRN IV PAIN LEVEL 7-10 Last administered on 04/08/17 20:40; Admin Dose 4 MG; Start 04/05/17 at 14:30 Diagnostic Test (Pha) (Accu-Chek) 1 ea 02 XX ; Start 04/06/17 at 02:00 Miscellaneous Information 1 ea NOTE XX ; Start 04/05/17 at 16:00 Glucose (Glutose) 15 gm Q15M PRN PO DECREASED GLUCOSE; Start 04/05/17 at 16:00 Glucose (Glutose) 22.5 gm Q15M PRN PO DECREASED GLUCOSE; Start 04/05/17 at 16: 00 Dextrose (D50w Syringe) 25 ml Q15M PRN IV DECREASED GLUCOSE; Start 04/05/17 at 16:00 Dextrose (D50w Syringe) 50 ml Q15M PRN IV DECREASED GLUCOSE; Start 04/05/17 at 16:00 Glucagon (Glucagen) 1 mg Q15M PRN IM DECREASED GLUCOSE; Start 04/05/17 at 16: 00 Glucose (Glutose) 15 gm Q15M PRN BUCCAL DECREASED GLUCOSE; Start 04/05/17 at 16:00 Insulin Glargine (Lantus) 20 unit DAILY@08 SC Last administered on 04/12/17 08 :45; Admin Dose 20 UNIT; Start 04/07/17 at 08:00 Atorvastatin Calcium (Lipitor) 40 mg HS PO Last administered on 04/12/17 20:48 ; Admin Dose 40 MG; Start 04/06/17 at 21:00 Guaifenesin/ Dextromethorphan (Robitussin Dm Liquid Cup) 10 ml Q4H PRN PO COUGH Last administered on 04/12/17 20:59; Admin Dose 10 ML; Start 04/07/17 at 22:00 Aspirin (Aspirin) 81 mg DAILY PO Last administered on 04/12/17 08:36; Admin Dose 81 MG; Start 04/12/17 at 09:00 Ticagrelor (Brilinta) 90 mg BID PO Last administered on 04/12/17 20:47; Admin Dose 90 MG; Start 04/11/17 at 21:00 Morphine Sulfate (morphine) 2 mg Q2H PRN IV FOR NON CARDIAC PAIN (4-10); Start 04/11/17 at 09:00 TAMIKA RAMACHANDRAN Apr 13, 2017 07:56
[2017-04-13] MEDS: ASPIRIN 81 MG TAB PO SCH (08:51)
[2017-04-13] MEDS: TICAGRELOR 90 MG TABLET PO SCH (08:53)
[2017-04-13] MEDS: INSULIN GLARGINE [LANtus] 3 ML PEN SC SCH (08:54)
[2017-04-13] MEDS: GUAIFENESIN/DM 5ML CUP PO PRN (09:04)
[2017-04-13] MEDS ORDERED: TICA90TA PO (13:23)
[2017-04-13] MEDS ORDERED: CARV6.2579 PO (13:23)
--- NOTE | 2017-04-13 13:24 | PDOCDIS ---
Discharge Instructions DIAGNOSIS Discharge Diagnosis NSTEMI CONDITION Patient Condition: Good HOME CARE INSTRUCTIONS: Diet Instructions: Reduced CalorieSpecial Diet: 1800 ada FOLLOW UP/APPOINTMENTS Follow-up Plan It is extremely important for you to take your medications as prescribed without missing a dose Make an appointment to see Dr Elizabeth in clinic within the next 1-2 weeks Return to the hospital if you have chest discomfort, shortness of breath, or any other concerning symptoms BHARATH KING MD Apr 13, 2017 13:24
--- NOTE | 2017-04-13 13:29 | DS ---
Date/Time of Note Date/Time of Note DATE: 04/13/17 TIME: 13:26 Discharge Summary Admission/Discharge Info Admit Date/Time Apr 05, 2017 at 13:23 Discharge Date/Time Discharge Diagnosis NSTEMI Patient Condition: Fair Hx of Present Illness Patient is 61-year-old male with a history of insulin-dependent diabetes, hypertension and dyslipidemia as well as morbid obesity. Patient presents with 8 days of pressure-like chest pain, pain is exacerbated by activity and relieved with rest, patient states that the pain was radiating to his whole head today. Patient has a reported history of coronary disease or CHF. In the ED patient's troponin was mildly elevated at 2, EKG showed no evidence of ischemia. Hospital Course NSTEMI: s/p PCI of LAD and OM Acute systolic heart failure: EF 45%. Mild decompensation but iatrogenic due to hydration to prevent ELIE. Now euvolemic Three-vessel coronary artery disease - status post PCI to LAD and OM 04/11/2017, residual RCA disease Ischemic cardiomyopathy - LVEF 45-50% Chronic kidney disease: Cr stable so far post cath Hypertension Dyslipidemia Insulin-dependent diabetes mellitus -check labs this am (ordered) -If Cr stable, ok for d/c -no lasix as outpt at this time. Should have cardiology f/u in 1-2 weeks to determine need for ongoing lasix and to plan for staged PCI of RCA -aspirin 81mg daily indefinitely -ticagrelor 90mg BID for at least one year -continue atorvastatin 40mg daily -continue carvedilol 6.25mg BID -can start ACEI/ARB as outpt Patient was diagnosed with NSTEMI on presentation. Taken to center medical and lab director which showed 3 vessel disease. No PCI thus performed at that time. CV surgery was consulted who deemed the patient too high risk for CABG and thus recommended PCI. Returned to center medical and lab director and is now s/p PCI of OM and LAD. He has residual distal RCA which can be staged as outpt . He has CKD III and was given IV NS for renal protection prior to the procedure. This cause slight CHF exacerbation which required lasix. At time of discharge breathing very comfortably, euvolemic and no diuretics were prescribed at discharge He will follow up in cardiology clinic w Dr Anna and will required BMP within next 1-2 weeks He was prescribed Brillinta in addition to aspirin at discharge. Coreg was added and lisinopirl was stopped for now as kidney funciton settles out. Home Meds Active Scripts Carvedilol* (Carvedilol*) 6.25 Mg Tablet, 6.25 MG PO BID for 60 Days, #120 TAB Prov:BHARATH KING MD 04/13/17 Ticagrelor* (Brilinta*) 90 Mg Tablet, 90 MG PO BID for 60 Days, #120 TAB Prov:BHARATH KING MD 04/13/17 Reported Medications Gemfibrozil* (Gemfibrozil*) 600 Mg Tablet, 600 MG PO BID, TAB 04/05/17 [place]-3 Acid Ethyl Esters (Lovaza) 1 Gm Capsule, 1 GM PO BID, CAP 04/05/17 Insulin Glargine* (Lantus*) 100 Unit/Ml Soln, 30 UNIT SC DAILY, #1 VIAL 04/05/17 Aspirin (Low Dose Aspirin) 81 Mg Tablet.dr, 81 MG PO DAILY, #30 TAB 04/05/17 Atorvastatin Calcium* (Atorvastatin Calcium*) 20 Mg Tablet, 20 MG PO QHS, #30 TAB 04/05/17 Amlodipine Besylate* (Amlodipine Besylate*) 10 Mg Tablet, 10 MG PO DAILY, #30 TAB 04/05/17 Metformin Hcl* (Metformin Hcl*) 1,000 Mg Tablet, 1000 MG PO WITH BREAKFAST DINNE , #30 TAB 04/05/17 Discontinued Reported Medications Ibuprofen* (Advil*) 200 Mg Capsule, 200 MG PO Q6H Y for PAIN, CAP 04/05/17 Naproxen* (Naproxen*) 220 Mg Capsule, 220 MG PO BID Y for PAIN AND/OR INFLAMMATION, CAP 04/05/17 Ferrous Sulfate* (Ferrous Sulfate*) 325 Mg Tabec, 325 MG PO DAILY, TAB 04/05/17 Gabapentin* (Gabapentin*) 300 Mg Capsule, 300 MG PO BID, #60 CAP 04/05/17 Lisinopril* (Lisinopril*) 40 Mg Tablet, 40 MG PO DAILY, #30 TAB 04/05/17 Follow-up Plan It is extremely important for you to take your medications as prescribed without missing a dose Make an appointment to see Dr Elizabeth in clinic within the next 1-2 weeks Return to the hospital if you have chest discomfort, shortness of breath, or any other concerning symptoms Primary Care Provider Not On Staff Doctor Pending Labs Laboratory Tests Test 04/12/17 17:07 04/12/17 20:45 04/13/17 08:41 04/13/17 08:49 Bedside Glucose 90mg/dL (70-220) 105mg/dL (70-220) 92mg/dL (70-220) Sodium Level 141mmol/L (135-144) Potassium Level 3.8mmol/L (3.5-5.1) Chloride Level 105mmol/L (97-110) Carbon Dioxide Level 26mmol/L (21-31) Anion Gap 14 (8-16) Blood Urea Nitrogen 36mg/dl (7-20) Creatinine 2.23mg/dl (0.61-1.24) Glucose Level 94mg/dl (70-220) Calcium Level 8.6mg/dl (8.4-10.2) Test 04/13/17 11:58 Bedside Glucose 87mg/dL (70-220) BHARATH KING MD Apr 13, 2017 13:29
--- NOTE | 2017-04-13 15:55 | PN ---
Date/Time of Note Date/Time of Note DATE: 04/13/17 TIME: 15:54 Assessment/Plan VTE Prophylaxis VTE Prophylaxis Intervention: other Lines/Catheters IV [facility] Saline Lock Urinary Cath still in place: No Assessment/Plan Chief Complaint/Hosp Course NSTEMI: s/p PCI of LAD and OM Acute systolic heart failure: EF 45%. Mild decompensation but iatrogenic due to hydration to prevent ELIE. Now euvolemic Three-vessel coronary artery disease - status post PCI to LAD and OM 04/11/2017, residual RCA disease Ischemic cardiomyopathy - LVEF 45-50% Chronic kidney disease: Cr stable so far post cath Hypertension Dyslipidemia Insulin-dependent diabetes mellitus -check labs this am (ordered) -If Cr stable, ok for d/c -no lasix as outpt at this time. Should have cardiology f/u in 1-2 weeks to determine need for ongoing lasix and to plan for staged PCI of RCA -aspirin 81mg daily indefinitely -ticagrelor 90mg BID for at least one year -continue atorvastatin 40mg daily -continue carvedilol 6.25mg BID -can start ACEI/ARB as outpt Patient was diagnosed with NSTEMI on presentation. Taken to labor delivery specialist which showed 3 vessel disease. No PCI thus performed at that time. CV surgery was consulted who deemed the patient too high risk for CABG and thus recommended PCI. Returned to labor delivery specialist and is now s/p PCI of OM and LAD. He has residual distal RCA which can be staged as outpt . He has CKD III and was given IV NS for renal protection prior to the procedure. This cause slight CHF exacerbation which required lasix. At time of discharge breathing very comfortably, euvolemic and no diuretics were prescribed at discharge He will follow up in cardiology clinic w Dr Anna and will required BMP within next 1-2 weeks He was prescribed Brillinta in addition to aspirin at discharge. Coreg was added and lisinopirl was stopped for now as kidney funciton settles out. Problems: Subjective 24 Hr Interval Summary Free Text/Dictation Called by pharmacy that brillinta is not covered. Will change to Plavix Exam/Review of Systems Vital Signs Vitals Vital Signs Date Time Temp Pulse Resp B/P Pulse Ox O2 Delivery O2 Flow Rate FiO2 04/13/17 12:21 98.1 76 20 126/68 96 04/11/17 09:18 Room Air 04/11/17 02:50 21 04/09/17 16:51 2.0 Intake and Output 04/12/17 04/12/17 04/13/17 15:00 23:00 07:00 Intake Total 1200 ml 450 ml Balance 1200 ml 450 ml Results Result Diagram: 04/12/17 0843 04/13/17 0841 Results 24 hrs Laboratory Tests Test 04/12/17 17:07 04/12/17 20:45 04/13/17 08:41 04/13/17 08:49 Bedside Glucose 90 105 92 Sodium Level 141 Potassium Level 3.8 Chloride Level 105 Carbon Dioxide Level 26 Anion Gap 14 Blood Urea Nitrogen 36 H Creatinine 2.23 H Glucose Level 94 Calcium Level 8.6 Test 04/13/17 11:58 Bedside Glucose 87 Medications Medications Current Medications Ondansetron HCl (Zofran Inj) 4 mg Q6H PRN IV NAUSEA AND/OR VOMITING; Start at 14:30 Acetaminophen (Tylenol Supp) 650 mg Q6H PRN IN PAIN LEVEL 1-3 OR FEVER; Start 04/05/17 at 14:30 Docusate Sodium (Colace) 100 mg Q12H PRN PO CONSTIPATION; Start 04/05/17 at 14 :30 Magnesium Hydroxide (Milk Of Mag) 30 ml DAILY PRN PO CONSTIPATION; Start 04/05 at 14:30 Zolpidem Tartrate (Ambien) 5 mg QHS PRN PO SLEEP Last administered on 23:32; Admin Dose 5 MG; Start 04/05/17 at 14:30 Carvedilol (Coreg) 6.25 mg BID PO Last administered on 04/13/17 08:51; Admin Dose 6.25 MG; Start 04/05/17 at 21:00 Nitroglycerin (Nitroglycerin (Sl Tab) 0.4 Mg) 1 tab Q5M PRN SL CHEST PAIN; Start 04/05/17 at 14:30 Morphine Sulfate (morphine) 2 mg Q2H PRN IV PAIN LEVEL 4-6 Last administered on 04/11/17 12:41; Admin Dose 2 MG; Start 04/05/17 at 14:30 Morphine Sulfate (morphine) 4 mg Q2H PRN IV PAIN LEVEL 7-10 Last administered on 10/31/17at 20:40; Admin Dose 4 MG; Start 04/05/17 at 14:30 Diagnostic Test (Pha) (Accu-Chek) 1 ea 02 XX ; Start 04/06/17 at 02:00 Miscellaneous Information 1 ea NOTE XX ; Start 04/05/17 at 16:00 Glucose (Glutose) 15 gm Q15M PRN PO DECREASED GLUCOSE; Start 04/05/17 at 16:00 Glucose (Glutose) 22.5 gm Q15M PRN PO DECREASED GLUCOSE; Start 04/05/17 at 16: 00 Dextrose (D50w Syringe) 25 ml Q15M PRN IV DECREASED GLUCOSE; Start 04/05/17 at 16:00 Dextrose (D50w Syringe) 50 ml Q15M PRN IV DECREASED GLUCOSE; Start 04/05/17 at 16:00 Glucagon (Glucagen) 1 mg Q15M PRN IM DECREASED GLUCOSE; Start 04/05/17 at 16: 00 Glucose (Glutose) 15 gm Q15M PRN BUCCAL DECREASED GLUCOSE; Start 04/05/17 at 16:00 Insulin Glargine (Lantus) 20 unit DAILY@08 SC Last administered on 04/13/17 08 :54; Admin Dose 20 UNIT; Start 04/07/17 at 08:00 Atorvastatin Calcium (Lipitor) 40 mg HS PO Last administered on 04/12/17 20:48 ; Admin Dose 40 MG; Start 04/06/17 at 21:00 Guaifenesin/ Dextromethorphan (Robitussin Dm Liquid Cup) 10 ml Q4H PRN PO COUGH Last administered on 04/13/17 09:04; Admin Dose 10 ML; Start 04/07/17 at 22:00 Aspirin (Aspirin) 81 mg DAILY PO Last administered on 04/13/17 08:51; Admin Dose 81 MG; Start 04/12/17 at 09:00 Ticagrelor (Brilinta) 90 mg BID PO Last administered on 04/13/17 08:53; Admin Dose 90 MG; Start 04/11/17 at 21:00 Morphine Sulfate (morphine) 2 mg Q2H PRN IV FOR NON CARDIAC PAIN (4-10); Start 04/11/17 at 09:00 BHARATH KING MD Apr 13, 2017 15:55
== END 2017-04-13 14:40 | disposition home or self-care (01) | DRG 246 ==
LOC: E/R 11:31 → TEL 13:23 → ICU 04-11 09:12 → MS4 04-11 19:10
PROVIDERS: ADMIT Internal Medicine; ATTEND Internal Medicine
PROC: 4A023N7 Measurement of Cardiac Sampling and Pressure, Left Heart, Percutaneous Approach (ICD-10-PCS; 2017-04-07)
PROC: B211YZZ Fluoroscopy of Multiple Coronary Arteries using Other Contrast (ICD-10-PCS; 2017-04-07)
PROC: 4A033BC Measurement of Arterial Pressure, Coronary, Percutaneous Approach (ICD-10-PCS; 2017-04-07)
PROC: 027136Z Dilation of Coronary Artery, Two Arteries with Three Drug-eluting Intraluminal Devices, Percutaneous Approach (ICD-10-PCS; principal; 2017-04-11 07:30)
DX: I21.4 Non-ST elevation (NSTEMI) myocardial infarction (principal); I50.21 Acute systolic (congestive) heart failure; E11.22 Type 2 diabetes mellitus with diabetic chronic kidney disease; E66.01 Morbid (severe) obesity due to excess calories; N18.3 Chronic kidney disease, stage 3 (moderate); I13.0 Hypertensive heart and chronic kidney disease with heart failure and stage 1 through stage 4 chronic kidney disease, or unspecified chronic kidney disease; E78.5 Hyperlipidemia, unspecified; I25.10 Atherosclerotic heart disease of native coronary artery without angina pectoris; I25.5 Ischemic cardiomyopathy; D50.9 Iron deficiency anemia, unspecified; Z68.34 Body mass index [BMI] 34.0-34.9, adult; Z79.4 Long term (current) use of insulin
CPT/HCPCS: 36415; 71010; 80048; 80053; 80061; 82550; 82553; 82728; 82962; 83036; 83540; 83735; 84100; 84484; 85025; 85610; 85730; 87081; 93005; 93306; 93458; 93571; 96365; 96375; J1940; C1725; C1887; C9600; C9601; J0583; J1644; J1815; J2250; J2270; J2916; J3010; J3475; J7030; J7042; Q9967

== ENCOUNTER 2018-07-06 08:20 | Inpatient (IN) | payer OTHER ==
[~2018-07-06] VITALS: Ht 165.1 cm; Wt 94.0 kg
[~2018-07-06 08:20] MED LIST: AMLO-147 PO; ASPI81TA52 PO; ATOR20TA38 PO; CARV6.2579 PO; GEMF600T8 PO; LANT3I SC; METF100010 PO; OMEG1CAP2 PO; TICA90TA PO
[2018-07-06] MEDS ORDERED: FUROSEMIDE 40 MG INJ IV STA (09:36)
[2018-07-06] MEDS ORDERED: NITROGLYCERIN 2% 1 GM OINT PKT TD STA (10:33)
[2018-07-06] MEDS ORDERED: ASPIRIN 325 MG TAB PO STA (10:33)
--- NOTE | 2018-07-06 10:40 | ERD ---
ER Documentation Chief Complaint Chief Complaint Complains of chest pain since this am HPI This is a 62-year-old male who says he has had 2 months of chest pain that occurs off and on. Is a history of heart problems which he does not know if he has heart failure but says he has some stents. He is complaining of pressure off and on for 2 months varying severity no radiation no shortness of breath at rest but he does have dyspnea on exertion and orthopnea with lower extremity edema. Currently he has no pain ROS All systems reviewed and are negative except as per history of present illness. Medications Home Meds Active Scripts Carvedilol* (Carvedilol*) 6.25 Mg Tablet, 6.25 MG PO BID for 60 Days, #120 TAB Prov:BHARATH KING MD 04/13/17 Ticagrelor* (Brilinta*) 90 Mg Tablet, 90 MG PO BID for 60 Days, #120 TAB Prov:BHARATH KING MD 04/13/17 Reported Medications Gemfibrozil* (Gemfibrozil*) 600 Mg Tablet, 600 MG PO BID, TAB 04/05/17 [place]-3 Acid Ethyl Esters (Lovaza) 1 Gm Capsule, 1 GM PO BID, CAP 04/05/17 Insulin Glargine* (Lantus*) 100 Unit/Ml Soln, 30 UNIT SC DAILY, #1 VIAL 04/05/17 Aspirin (Low Dose Aspirin) 81 Mg Tablet.dr, 81 MG PO DAILY, #30 TAB 04/05/17 Atorvastatin Calcium* (Atorvastatin Calcium*) 20 Mg Tablet, 20 MG PO QHS, #30 TAB 04/05/17 Amlodipine Besylate* (Amlodipine Besylate*) 10 Mg Tablet, 10 MG PO DAILY, #30 TAB 04/05/17 Discontinued Reported Medications Metformin Hcl* (Metformin Hcl*) 1,000 Mg Tablet, 1000 MG PO WITH BREAKFAST DINNE, #30 TAB 04/05/17 Allergies Allergies: Coded Allergies: No Known Allergy (Unverified , 07/06/18) PMhx/Soc History of Surgery: No Anesthesia Reaction: No Hx Neurological Disorder: No Hx Respiratory Disorders: No Hx Cardiac Disorders: Yes (HTN, HIGH CHOLESTEROL) Hx Psychiatric Problems: No Hx Miscellaneous Medical Probl: No Hx Alcohol Use: No Hx Substance Use: No Hx Tobacco Use: No Smoking Status: Current some day smoker FmHx Family History: No coronary disease Physical Exam Vitals Vital Signs Date Temp Pulse Resp B/P (MAP) Pulse Ox O2 O2 Flow FiO2 Time Delivery Rate 07/06/18 64 19 135/78 100 Room Air 09:57 (97) 07/06/18 97.0 68 20 171/80 95 08:29 (110) Physical Exam Const: Well-developed, well-nourished Head: Atraumatic, normocephalic Eyes: Normal Conjunctiva, PERRLA, EOMI, normal sclera, no nystagmus ENT: Normal External Ears, Nose and Mouth, moist mucus membranes. Neck: Full range of motion. No meningismus, no lymphadenopathy. Resp: Clear to auscultation bilaterally, no wheezing, rhonchi, rales Cardio: Regular rate and rhythm, no murmurs, S1 S2 present Abd: Soft, non tender x 4, non distended. Normal bowel sounds, no guarding or rebound, no pulsitile abdominal masses or bruits Skin: No petechiae or rashes, no ecchymosis , no maculopapular rash Back: No midline or flank tenderness Ext: No cyanosis, +3 pitting edema to bilateral legs, FROM x 4, normal inspection, neurovascularly intact x 4 Neur: Awake and alert, STR 5/5 x 4, sensation intact x 4, no focal findings, cerebellum intact Psych: Normal Mood and Affect Result Diagram: 07/06/18 0935 07/06/18 0935 Results 24 hrs Laboratory Tests Test 07/06/18 09:35 White Blood Count 8.3 10^3/ul Red Blood Count 3.33 10^6/ul Hemoglobin 9.7 g/dl Hematocrit 29.5 % Mean Corpuscular Volume 88.6 fl Mean Corpuscular Hemoglobin 29.1 pg Mean Corpuscular Hemoglobin Concent 32.9 g/dl Red Cell Distribution Width 13.8 % Platelet Count 209 10^3/UL Mean Platelet Volume 10.9 fl Immature Granulocytes % 0.500 % Neutrophils % 69.5 % Lymphocytes % 20.4 % Monocytes % 7.0 % Eosinophils % 2.0 % Basophils % 0.6 % Nucleated Red Blood Cells % 0.0 /100WBC Immature Granulocytes # 0.040 10^3/ul Neutrophils # 5.8 10^3/ul Lymphocytes # 1.7 10^3/ul Monocytes # 0.6 10^3/ul Eosinophils # 0.2 10^3/ul Basophils # 0.1 10^3/ul Nucleated Red Blood Cells # 0.0 10^3/ul Sodium Level 140 mmol/L Potassium Level 4.1 mmol/L Chloride Level 111 mmol/L Carbon Dioxide Level 22 mmol/L Anion Gap 7 Blood Urea Nitrogen 39 mg/dl Creatinine 2.80 mg/dl Est Glomerular Filtrat Rate mL/min 23 mL/min Glucose Level 179 mg/dl Calcium Level 8.4 mg/dl Total Bilirubin 0.0 mg/dl Direct Bilirubin 0.00 mg/dl Indirect Bilirubin 0.0 mg/dl Aspartate Amino Transf (AST/SGOT) 24 IU/L Alanine Aminotransferase (ALT/SGPT) 22 IU/L Alkaline Phosphatase 69 IU/L Troponin I 2.440 ng/ml B-Type Natriuretic Peptide 4250 PG/ML Total Protein 5.7 g/dl Albumin 2.8 g/dl Globulin 2.90 g/dl Albumin/Globulin Ratio 0.96 Current Medications Medications Dose Sig/Jordi Start Time Status Last (Trade) Ordered Route PRN Stop Time Admin Dose Reason Admin Furosemide 40 mg ONCE STAT 07/06/18 DC 07/06/18 (Lasix) IV 09:36 09:58 07/06/18 09:38 Aspirin 325 mg ONCE STAT 07/06/18 UNV (Aspirin) PO 10:33 07/06/18 10:34 1 inch ONCE STAT 07/06/18 UNV Nitroglycerin TD 10:33 07/06/18 10:34 (Nitroglyceri n 2% Oint) Enoxaparin 100 mg ONCE ONCE 07/06/18 UNV Sodium SC 11:00 (Lovenox) 07/06/18 11:01 Procedures/MDM Ordering MD: SOFIYA MONAHAN DO Location: E/R Room/Bed: PROCEDURE: XR Chest. CLINICAL INDICATION: Chest pain TECHNIQUE: Single portable view of the chest was obtained COMPARISON: 04/11/17 FINDINGS: There is mild cardiomegaly. That was there is calcified. There is mild pulmonary vascular congestion. There are bilateral perihilar and lower lobe increased interstitial changes. There is a slightly more focal right lower lobe infiltrate. There are small bilateral pleural effusions. There is no pneumothorax. RPTAT: AA IMPRESSION: Mild cardiomegaly with pulmonary vascular congestion. Slightly more focal right lower lobe infiltrate. .Lucio Hough MD, MD Date Time Electronically viewed and signed by .Lucio Hough MD, on 07/06/2018 09:57 .S/ CC: SOFIYA MONAHAN DO [id number] EKG: Rate/Rhythm: Normal Sinus Rhythm,NL intervals QRS, ST, QT: NORMAL DE, QRS, QT] Impression: NORMAL EKG Patient has elevated troponin of 2.4. Will treat with aspirin, Nitropaste, Lovenox subcu. Also has elevated BNP and chest x-ray with pulmonary edema consistent with CHF. Will admit for cardiac workup/diuresis Critical Care Time: 30 minutes Treatments/Evaluations: Close monitoring and treatment of unstable vital signs, cardiorespiratory, and neurologic status, while maintaining tight balance of fluid, respiratory, and cardiac interventions. This time includes discussing the case with the patient and the patient's family. This time does not include all procedures stated elsewhere in this record. This time also includes reviewing old records, labs and radiological studies. This time includes examining and re- examining the patient. Additionally, this time also includes arranging care with admitting and consulting physicians. Departure Diagnosis: Primary Impression: Non-STEMI (non-ST elevated myocardial infarction) Additional Impression: Congestive heart failure Heart failure type: unspecified Heart failure chronicity: unspecified Qualified Codes: I50.9 - Heart failure, unspecified Condition: Stable SOFIYA MONAHAN DO Jul 06, 2018 10:40
[2018-07-06] MEDS ORDERED: ENOXAPARIN 100 MG/ML SYG SC ONE (11:00)
[2018-07-06] MEDS ORDERED: ACETAMINOPHEN 325 MG TAB PO PRN ×2 (12:30→13:00)
[2018-07-06] MEDS ORDERED: ONDANSETRON 4 MG INJ IV PRN ×2 (12:30→13:00)
[2018-07-06] MEDS ORDERED: morphine 4 MG/ML VIAL IV PRN (13:00)
[2018-07-06] MEDS ORDERED: HEPARIN 1000 UNITS/ML 10 ML INJ IV ONE ×2 (13:00→23:00)
[2018-07-06] MEDS ORDERED: NACL 0.9% 3 ML SYG IV SCH (13:00)
[2018-07-06] MEDS ORDERED: NITROGLYCERIN (SL) 0.4 MG TAB SL PRN (13:00)
[2018-07-06] MEDS ORDERED: HYDROCODONE/APAP (5/325) TAB PO PRN (13:00)
[2018-07-06 13:20] VITALS: BP 139/70; PULSE 63; PULSE 64; RESP 18
[2018-07-06 13:30] VITALS: Ht 165.1 cm; Wt 94.0 kg
[2018-07-06] MEDS ORDERED: HEPARIN 25000 UNITS/250 ML 250 ML IV SCH (14:00)
[2018-07-06] MEDS ORDERED: GLUCAGON 1 MG INJ IM PRN (14:30)
[2018-07-06] MEDS ORDERED: GLUCOSE GEL 15 GRAM TUBE PO PRN ×2 (14:30)
[2018-07-06] MEDS ORDERED: GLUCOSE GEL 15 GRAM TUBE BUCCAL PRN (14:30)
[2018-07-06] MEDS ORDERED: DEXTROSE 50% 50 ML SYRINGE IV PRN ×2 (14:30)
[2018-07-06] MEDS: FAMOTIDINE 20 MG TAB PO SCH (14:49)
--- NOTE | 2018-07-06 14:50 | HP ---
Date/Time of Note Date/Time of Note DATE: 07/06/18 TIME: 14:50 Assessment/Plan VTE Prophylaxis Pharmacological prophylaxis: other Lines/Catheters IV Catheter Type (from Nrsg): Saline Lock Assessment/Plan Hospital Course Objective Physical exam General: Patient is laying in bed and answers questions appropriately Mentation: Patient is alert and oriented 4, Head: Normocephalic atraumatic Eyes: EOMI, pupils reactive to light Neck: Supple, nontender, midline Respiratory: Clear to auscultation bilaterally Cardiovascular: regular rate, no obvious murmurs Gastrointestinal: non-tender to palpation, bowel sounds heard. Neurological: Moves all extremities spontaneously Skin: No new skin lesions Assessment and plan Non-ST elevated AK -Cardiology consulted, Dr. Benedict -Troponin elevated, continue to trend troponins -Patient given Lovenox in the ED, however due to patient's poor renal function will start heparin drip at next scheduled dose instead of Lovenox -EKG noted -Echocardiogram done, pending read -Patient does take cardiac medications at home, however are different than what we have reconciled here in the computer, for instance patient does not take Brilinta, instructed patient's to bring home medications. Patient states that he believes he is taking a baby aspirin, nitrate, Coreg, amlodipine. Will defer to cardiology for medications for now until patient's home medications are brought in Acute kidney injury on CKD -Nephrology consulted -Mild increase of baseline -Mild hydration for now Anemia -Patient's hemoglobin draw approximately 4 hours apart today, showing a one- point loss of hemoglobin. However patient not having any overt bleeding or any other signs of acute bleeding, will likely be a laboratory error however will get a repeat hemoglobin as we do not know which hemoglobin level is the error. We will monitor -Iron studies pending Diabetes mellitus -Insulin while in house Hypertension -Continue home meds when able Disposition -Trend troponins, cardiology consultation and nephrology consultation pending Result Diagram: 07/06/18 1306 07/06/18 0935 Results 24hrs Laboratory Tests Test 07/06/18 09:35 07/06/18 13:06 White Blood Count 8.3 9.2 Red Blood Count 3.33 L 3.05 L Hemoglobin 9.7 L 8.7 L Hematocrit 29.5 L 26.9 L Mean Corpuscular Volume 88.6 88.2 Mean Corpuscular Hemoglobin 29.1 28.5 L Mean Corpuscular Hemoglobin Concent 32.9 32.3 Red Cell Distribution Width 13.8 13.9 Platelet Count 209 # 205 Mean Platelet Volume 10.9 H 10.9 H Immature Granulocytes % 0.500 H 0.300 Neutrophils % 69.5 63.2 Lymphocytes % 20.4 27.1 Monocytes % 7.0 7.3 Eosinophils % 2.0 1.7 Basophils % 0.6 0.4 Nucleated Red Blood Cells % 0.0 0.0 Immature Granulocytes # 0.040 H 0.030 Neutrophils # 5.8 5.8 Lymphocytes # 1.7 2.5 Monocytes # 0.6 0.7 Eosinophils # 0.2 0.2 Basophils # 0.1 0.0 Nucleated Red Blood Cells # 0.0 0.0 Sodium Level 140 Potassium Level 4.1 Chloride Level 111 H Carbon Dioxide Level 22 Anion Gap 7 Blood Urea Nitrogen 39 H Creatinine 2.80 H Est Glomerular Filtrat Rate mL/min 23 L Glucose Level 179 Calcium Level 8.4 Total Bilirubin 0.0 L Direct Bilirubin 0.00 Indirect Bilirubin 0.0 Aspartate Amino Transf (AST/SGOT) 24 Alanine Aminotransferase (ALT/SGPT) 22 Alkaline Phosphatase 69 Troponin I 2.440 *H B-Type Natriuretic Peptide 4250 H Total Protein 5.7 L Albumin 2.8 L Globulin 2.90 Albumin/Globulin Ratio 0.96 Prothrombin Time 13.9 Prothrombin Time Ratio 1.1 INR International Normalized Ratio 1.06 Activated Partial Thromboplast Time 36.0 H HPI/ROS Admit Date/Time Admit Date/Time Jul 06, 2018 at 12:07 Hx of Present Illness Patient is a male with a past medical history significant for coronary artery disease, hypertension, diabetes mellitus who presents to [facility] for acute chest pain. Patient states that over the past month he has had on and off recurrent chest pain that is central and it is reminiscent of his previous MIs. Patient came to the ED today as his chest pain that was central was even worse upon awakening. Currently patient has no chest pain but states that he does follow-up with a material attendant and approximately 3 months ago he did have a stress test which did not show any abnormalities. Patient also currently denies any other acute issues, patient states that he does have a chest pain he must stop or will get worse. Patient currently denies any shortness of breath, nausea, vomiting, abdominal pain, leg pain. Patient also follows up with a staining machine operator but he does not rememberer the name. PMH/Family/Social Past Medical History Medications Current Medications IV Flush (NS 3 ml) 3 ml PER PROTOCOL IV ; Start 07/06/18 at 13:00 Ondansetron HCl (Zofran Inj) 4 mg Q6H PRN IV NAUSEA/VOMITING; Start 07/06/18 at 13:00 Aspirin (Aspirin) 81 mg DAILY PO ; Start 07/07/18 at 09:00 Nitroglycerin (Nitroglycerin (Sl Tab) 0.4 Mg) 1 tab Q5M PRN SL .CHEST PAIN; Start 07/06/18 at 13:00 Acetaminophen (Tylenol Tab) 650 mg Q6H PRN PO .PAIN 1-3 OR TEMP; Start 07/06/18 at 13:00 Acetaminophen/ Hydrocodone Bitart ([place] (5/325)) 1 tab Q6H PRN PO .PAIN 4-6; Start 07/06/18 at 13:00 Morphine Sulfate (morphine) 2 mg Q4H PRN IV .PAIN 7-10; Start 07/06/18 at 13:00 Famotidine (Pepcid) 20 mg DAILY PO ; Start 07/06/18 at 14:00 Diagnostic Test (Pha) (Accu-Chek) 1 ea 02 XX ; Start 07/07/18 at 02:00 Insulin Glargine (Lantus) 19 units DAILY@2000 SC ; Start 07/06/18 at 20:00 Insulin Aspart (Novolog Insulin Pen) 5 unit WITH MEALS SC ; Start 07/06/18 at 18:00 Insulin Aspart (Novolog Insulin Pen) NOVOLOG *MILD* ALGORITHM WITH MEALS BEDTIME SC ; Start 07/06/18 at 18:00 Heparin Sodium (Porcine) (Heparin (1000 Units/ml)) 4,000 unit PER PROTOCOL PRN IV aPTT<47; Start 07/06/18 at 13:00 Miscellaneous Information 1 ea NOTE XX ; Start 07/06/18 at 14:30 Glucose (Glutose) 15 gm Q15M PRN PO DECREASED GLUCOSE; Start 07/06/18 at 14:30 Glucose (Glutose) 22.5 gm Q15M PRN PO DECREASED GLUCOSE; Start 07/06/18 at 14: 30 Dextrose (D50w Syringe) 25 ml Q15M PRN IV DECREASED GLUCOSE; Start 07/06/18 at 14:30 Dextrose (D50w Syringe) 50 ml Q15M PRN IV DECREASED GLUCOSE; Start 07/06/18 at 14:30 Glucagon (Glucagen) 1 mg Q15M PRN IM DECREASED GLUCOSE; Start 07/06/18 at 14:30 Glucose (Glutose) 15 gm Q15M PRN BUCCAL DECREASED GLUCOSE; Start 07/06/18 at 14:30 Heparin Sodium (Porcine) (Heparin (1000 Units/ml)) 4,000 unit ONCE ONCE IV ; Start 07/06/18 at 23:00; Stop 07/06/18 at 23:01 Heparin Sodium (Porcine) 250 ml @ 10 mls/hr PER PROTOCOL IV ; Start 07/06/18 at 23:00 Labetalol HCl (Labetalol) 10 mg Q4 PRN IV sbp >160; Start 07/06/18 at 15:00; Status UNV Sodium Chloride 1,000 ml @ 40 mls/hr Q24H IV ; Start 07/06/18 at 15:00; Stop 07/07/18 at 15:59; Status UNV Coded Allergies: No Known Allergy (Unverified , 07/06/18) Past Surgical History Past Surgical Hx: no surgical history Family History Significant Family History: no pertinent family hx Social History Smoking Status: Current some day smoker Exam/Review of Systems Vital Signs Vitals Vital Signs Date Temp Pulse Resp B/P (MAP) Pulse Ox O2 O2 Flow FiO2 Time Delivery Rate 07/06/18 63 13:20 07/06/18 17 135/77 97 Nasal 2.0 12:49 (96) Cannula 07/06/18 97.0 08:29 SCOT MCKEON Jul 06, 2018 14:50
[2018-07-06 15:34] VITALS: BP 167/87; PULSE 60; RESP 18
[2018-07-06] MEDS: SOD CHLORIDE 0.9% 1,000 ML IV SCH (15:48)
[2018-07-06 16:01] VITALS: PULSE 73
--- NOTE | 2018-07-06 16:43 | CONS ---
DATE OF ADMISSION: 07/06/2018 DATE OF CONSULTATION: 07/06/2018 TYPE OF CONSULTATION: Nephrology. REASON FOR CONSULTATION: Acute kidney injury, suspect. PHYSICIAN REQUESTING CONSULT: Scot Quintana MD HISTORY OF PRESENT ILLNESS: This is a 62-year-old male with a past medical history of coron joann artery disease, history of hypertension, diabetes, history of chronic kidney disease with previou s baseline creatinine between 2 to 2.2 mg/dL who presented to [facility] with compl aints of chest pain. The patient states that over the past month he has had intermittent chest pain similar to previous MIs. The patient came to the emergency room. Upon arrival, the patient denied a ny shortness of breath, fevers or chills. The patient had a chest x-ray which showed findings of pul monary vascular congestion. The patient in the emergency room was given aspirin and nitroglycerin an d was placed on heparin drip and has been admitted to telemetry for evaluation. In terms of patient's renal history, the patient states that he has underlying renal insufficiency. He has seen a machine tack puller once. The patient does not know his underlying EGFR, but his previous [facility] creatinines are ranging between 2 to 2.2 mg/dL. The patient currently denies any hemoptysis, h ematemesis or hematochezia. PAST MEDICAL HISTORY: As stated above, history of kidney disease, history of hypertension, history o f diabetes, history of coronary artery disease. PAST SURGICAL HISTORY: Status post cardiac catheterization. FAMILY HISTORY: No family history of kidney disease. SOCIAL HISTORY: Positive smoking. ALLERGIES: NO DRUG ALLERGIES. MEDICATIONS: Have been reviewed. REVIEW OF SYSTEMS: A 14-point review of systems conducted. Pertinent positives stated in HPI, other mendoza negative. PHYSICAL EXAMINATION: VITAL SIGNS: Blood pressure 139/70, respiration 19, pulse 63, temperature 97.6. HEENT: Head is normocephalic. NECK: Supple. HEART: Regular rate. LUNGS: Show diminished breath sounds at base. ABDOMEN: Soft, nontender to palpation without rebound or guarding. EXTREMITIES: Negative for clubbing, cyanosis. No edema. DERMATOLOGIC: No rashes. MUSCULOSKELETAL: No joint effusion. NEUROLOGIC: No change in exam. LABORATORY DATA: Show sodium 140, potassium 4.1, chloride 111, BUN 39, creatinine 2.80. Troponin 2. 44. BNP of 4200. ASSESSMENT AND PLAN: This is a 62-year-old male who presents with: 1. Nonoliguric acute kidney injury on top of chronic kidney disease with previous baseline creatinin e around 2.2 mg/dL. Etiology of current acute kidney injury may be multifactorial secondary to hemod ynamics, possible progression of underlying chronic kidney disease, possible tubular injury. Recomme ndation at this point is to check a UA with microanalysis. We will check urine electrolytes. We hardy l check renal ultrasound to evaluate renal parenchyma. We would otherwise continue supportive care, renally dose meds, avoid nephrotoxins, defer any SAMANTHA inhibitor at this time. 2. Anemia. Monitor hemoglobin and hematocrit. We will check an iron panel. 3. Mineral bone disorder. Monitor calcium and phosphorus levels. 4. Hypertension. Continue blood pressure regimen. Defer any SAMANTHA inhibitors. 5. Rdn-JB-kvsmaomna myocardial infarction. Continue current medical management. Follow up with car diology. Continue to monitor serial troponins. Follow up 2D echo. Continue aspirin, nitroglycerin and heparin drip. 6. Diabetes. Continue current insulin regimen. Thank you, Dr. Quintana, for this interesting consult. It will be a pleasure to follow patient with you t coryout the hospital course. Dictated By: GRAEME BRANDT DO NR/NTS Conf#: [id number] DID#: [id number] CC: SOCT QUINTANA MD; JEANNIE FREITAS MD;*End*
--- NOTE | 2018-07-06 16:55 | RADRPT ---
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 Physician: SCOT MCKEON Quality: Adequate Procedures: Transthoracic echocardiogram with complete 2D, M-Mode, and doppler examination. Indications: NSTEMI. 2D/M Mode Doppler Measurement Value Normal Ranges Measurement Value Normal Ranges LVIDd 2D 5.5 3.5 - 5.6 cm AV Mean Hugo 1.2 m/sec LVIDs 2D 4.7 2.1 - 4.1 cm AV Mean PG 7.0 mmHg LVPWd 2D 1.0 0.6 - 1.1 cm AV Peak Hugo 1.7 m/sec IVSd 2D 1.2 0.6 - 1.1 cm AV Peak PG 12.0 mmHg AoR Diam 2D 2.7 2.0 - 3.7 cm AV VTI 39.4 cm LA/Ao 2D 2 0 - 1 LVOT Mean Hugo 0.7 m/sec EF 2D 31.0 50.0 - 65.0 % LVOT Mean PG 2.0 mmHg LA Dimen 2D 4.2 2.3 - 4.0 cm LVOT Peak Hugo 1.0 m/sec IVC Diam 1.8 1.2 - 2.0 LVOT Peak PG 4.0 mmHg MV E Peak Hugo 1.3 m/sec MV A Peak Hugo 1.2 m/sec MV E/A 1.1 MV PHT 57.0 msec MV Decel Time 194 msec MV Decel Moca 7 MV E/A 1.1 MV PHT 57.0 msec MVA PHT 3.9 cm2 TAPSE 2.4 cm TR Peak Hugo 2.5 m/sec TR Peak PG 24.0 mmHg RVSP 27.0 mmHg RA Pressure 3.0 Findings Left Ventricle: Normal left ventricular systolic function. Normal left ventricular wall thickness. Mild enlargement of left ventricle cavity. Ejection fraction is visually estimated at 45 %. Tissue Doppler/Mitral Doppler indices are consistent with pseudonormalization with mildly elevated left atrial pressure (Stage II diastolic dysfunction). Right Ventricle: Moderate enlargement of right ventricle. Left Atrium: There is mild enlargement of left atrium. Right Atrium: The right atrium is normal in size. RA Pressure=3. Mitral Valve: Normal appearance of the mitral valve. Mild to moderate mitral valve regurgitation. Aortic Valve: Normal appearance of the aortic valve. No significant aortic stenosis or insufficiency. Tricuspid Valve: Normal appearance of the tricuspid valve. Estimated peak PA systolic pressure 27 mmHg. There is mild tricuspid regurgitation. Pulmonic Valve: Normal pulmonic valve appearance. Pericardium: Normal pericardium with no significant pericardial effusion. Aorta: Normal aortic root. IVC: Normal size and normal respiratory collapse consistent with normal right atrial pressure. Conclusions Normal left ventricular systolic function. Normal left ventricular wall thickness. Mild enlargement of left ventricle cavity. Ejection fraction is visually estimated at 45 %. Tissue Doppler/Mitral Doppler indices are consistent with pseudonormalization with mildly elevated left atrial pressure (Stage II diastolic dysfunction). There is mild enlargement of left atrium. Normal appearance of the mitral valve. Mild to moderate mitral valve regurgitation. Normal appearance of the aortic valve. No significant aortic stenosis or insufficiency. Normal appearance of the tricuspid valve. Estimated peak PA systolic pressure 27 mmHg. There is mild tricuspid regurgitation. Electronically Signed By: Darell Benedict 06-Jul-2018 16:54:28 -0800 Patient Name: FERMÍN PLATT Study Date: 06-Jul-2018 [id number]
--- NOTE | 2018-07-06 17:40 | CONS ---
Assessment/Plan Assessment/Plan Hospital Course (Demo Recall) 1. Non-ST elevation myocardial infarction 2. Coronary artery disease with history of previous MIs 3. History of PCI 4. Hypertension 5. Diabetes 6. Congestive heart failure class IV on arrival 7. Dyslipidemia 8. Active smoker and possibly COPD Recommendations: Aspirin will be continued Coreg statin will be resumed Off of any SAMANTHA inhibitor or ARB due to his renal insufficiency Patient has been appropriately started on heparin drip. We will continue it for now Medical optimization of renal optimization will be continued. Patient has already been evaluated by renal Plan for left heart catheterization coronary angiogram possible percutaneous coronary intervention tomorrow afternoon once and if okay from renal standpoint Risks benefits and alternatives of procedure discussed with the patient and family in detail. Risks including but not limited to risk of infection vascular congestion bleeding complication MT stroke arrhythmia renal failure etc. discussed with them in detail. Very high risk of renal failure given his baseline abnormality was discussed with the patient and the family. Consent has been obtained Thank you for his referral. We will continue to follow along with you, until patient is discharged and to follow-up with his regular assistant bookkeeper Dr.Fakheri JEANNIE FREITAS MD [facility] Consultation Date/Type/Reason Admit Date/Time Jul 06, 2018 at 12:07 Date of Consultation: Jul 06, 2018 Type of Consult Cardiology Reason for Consultation NSTEMI Requesting Provider: SCOT MCKEON Date/Time of Note DATE: 07/06/18 TIME: 17:33 Hx of Present Illness Interventional cardiology consultation note Chief complaint: Chest pain Reason for consult: Positive troponin History of present illness: Thank you for this referral. History was obtained from the patient and family were poor historian. From extensive review of the old chart discussion multiple physicians and staff including discussion with patient's assistant bookkeeper Dr. Patrick This is a 62-year-old male with a past medical history of coronary artery disease, status post MT status post PCI of LAD and left circumflex artery in 2017, history of hypertension, diabetes, history of chronic kidney disease with previous baseline creatinine between 2 to 2.2 mg/dL who presented to [facility] with complaints of chest pain. The patient states that over the past month he has had intermittent chest pain similar to previous MIs. Patient has had exertional chest discomfort over the past 2 months. However last night the pain got worse and he was having resting pain and shortness of breath. Troponin has been positive. Chest x-ray also showed congestive heart failure. His creatinine is elevated at 2.8 patient has already been evaluated by renal as well. PAST MEDICAL HISTORY: Coronary artery disease status post MT status post PCI of his left circumflex and LAD in 2017. At that time he was also noted to have right coronary artery stenosis as well. Prior to that apparently he was referred for bypass surgery was was felt not to be a candidate and required to h ave multivessel stenting done , history of kidney disease, history of hypertension, history of diabetes, history of coronary artery disease. Congestive heart failure PAST SURGICAL HISTORY: PCI as above mentioned FAMILY HISTORY: + Coronary artery disease SOCIAL HISTORY: Positive smoking. ALLERGIES: NO DRUG ALLERGIES. MEDICATIONS: Have been reviewed. Review of system: Patient denies all others except for above-mentioned Past Medical History Home Meds Active Scripts Carvedilol* (Carvedilol*) 6.25 Mg Tablet, 6.25 MG PO BID for 60 Days, #120 TAB Prov:BHARATH KING MD 04/13/17 Ticagrelor* (Brilinta*) 90 Mg Tablet, 90 MG PO BID for 60 Days, #120 TAB Prov:BHARATH KING MD 04/13/17 Reported Medications Gemfibrozil* (Gemfibrozil*) 600 Mg Tablet, 600 MG PO BID, TAB 04/05/17 [place]-3 Acid Ethyl Esters (Lovaza) 1 Gm Capsule, 1 GM PO BID, CAP 04/05/17 Insulin Glargine* (Lantus*) 100 Unit/Ml Soln, 30 UNIT SC DAILY, #1 VIAL 04/05/17 Aspirin (Low Dose Aspirin) 81 Mg Tablet.dr, 81 MG PO DAILY, #30 TAB 04/05/17 Atorvastatin Calcium* (Atorvastatin Calcium*) 20 Mg Tablet, 20 MG PO QHS, #30 TAB 04/05/17 Amlodipine Besylate* (Amlodipine Besylate*) 10 Mg Tablet, 10 MG PO DAILY, #30 TAB 04/05/17 Discontinued Reported Medications Metformin Hcl* (Metformin Hcl*) 1,000 Mg Tablet, 1000 MG PO WITH BREAKFAST DINNE, #30 TAB 04/05/17 Medications Current Medications IV Flush (NS 3 ml) 3 ml PER PROTOCOL IV ; Start 07/06/18 at 13:00 Ondansetron HCl (Zofran Inj) 4 mg Q6H PRN IV NAUSEA/VOMITING; Start 07/06/18 at 13:00 Aspirin (Aspirin) 81 mg DAILY PO ; Start 07/07/18 at 09:00 Nitroglycerin (Nitroglycerin (Sl Tab) 0.4 Mg) 1 tab Q5M PRN SL .CHEST PAIN; Start 07/06/18 at 13:00 Acetaminophen (Tylenol Tab) 650 mg Q6H PRN PO .PAIN 1-3 OR TEMP; Start 07/06/18 at 13:00 Acetaminophen/ Hydrocodone Bitart (Clawson (5/325)) 1 tab Q6H PRN PO .PAIN 4-6; Start 07/06/18 at 13:00 Morphine Sulfate (morphine) 2 mg Q4H PRN IV .PAIN 7-10; Start 07/06/18 at 13:00 Famotidine (Pepcid) 20 mg DAILY PO Last administered on 07/06/18at 14:49; Admin Dose 20 MG; Start 07/06/18 at 14:00 Diagnostic Test (Pha) (Accu-Chek) 1 ea 02 XX ; Start 07/07/18 at 02:00 Insulin Glargine (Lantus) 19 units DAILY@2000 SC ; Start 07/06/18 at 20:00 Insulin Aspart (Novolog Insulin Pen) 5 unit WITH MEALS SC ; Start 07/06/18 at 18:00 Insulin Aspart (Novolog Insulin Pen) NOVOLOG *MILD* ALGORITHM WITH MEALS BEDTIME SC ; Start 07/06/18 at 18:00 Heparin Sodium (Porcine) (Heparin (1000 Units/ml)) 4,000 unit PER PROTOCOL PRN IV aPTT<47; Start 07/06/18 at 13:00 Miscellaneous Information 1 ea NOTE XX ; Start 07/06/18 at 14:30 Glucose (Glutose) 15 gm Q15M PRN PO DECREASED GLUCOSE; Start 07/06/18 at 14:30 Glucose (Glutose) 22.5 gm Q15M PRN PO DECREASED GLUCOSE; Start 07/06/18 at 14:30 Dextrose (D50w Syringe) 25 ml Q15M PRN IV DECREASED GLUCOSE; Start 07/06/18 at 14:30 Dextrose (D50w Syringe) 50 ml Q15M PRN IV DECREASED GLUCOSE; Start 07/06/18 at 14:30 Glucagon (Glucagen) 1 mg Q15M PRN IM DECREASED GLUCOSE; Start 07/06/18 at 14:30 Glucose (Glutose) 15 gm Q15M PRN BUCCAL DECREASED GLUCOSE; Start 07/06/18 at 14:30 Heparin Sodium (Porcine) (Heparin (1000 Units/ml)) 4,000 unit ONCE ONCE IV ; Start 07/06/18 at 23:00; Stop 07/06/18 at 23:01 Heparin Sodium (Porcine) 250 ml @ 10 mls/hr PER PROTOCOL IV ; Start 07/06/18 at 23:00 Labetalol HCl (Labetalol) 10 mg Q4 PRN IV sbp >160; Start 07/06/18 at 15:00 Sodium Chloride 1,000 ml @ 40 mls/hr Q24H IV Last administered on 07/06/18at 15:48; Admin Dose 40 MLS/HR; Start 07/06/18 at 15:00; Stop 07/07/18 at 15:59 Atorvastatin Calcium (Lipitor) 80 mg HS PO ; Start 07/06/18 at 21:00 Influenza Virus Vaccine Quadrival (Fluzone) 0.5 ml ONCE ONCE IM* ; Start 07/07/18 at 09:00; Stop 07/07/18 at 09:01 Carvedilol (Coreg) 6.25 mg BID PO ; Start 07/06/18 at 21:00; Status UNV Isosorbide Dinitrate (Isordil) 20 mg TID PO ; Start 07/06/18 at 21:00; Status UNV Acetylcysteine (Nac) 600 mg BID PO ; Start 07/06/18 at 21:00; Status UNV Sodium Chloride 1,000 ml @ 70 mls/hr [id number] IV ; Start 07/07/18 at 08:00; Stop 07/07/18 at 15:59; Status UNV Allergies: Coded Allergies: No Known Allergy (Unverified , 07/06/18) Past Surgical History Past Surgical Hx: no surgical history Social History Smoking Status: Current some day smoker Exam/Review of Systems Vital Signs Vitals Vital Signs Date Temp Pulse Resp B/P (MAP) Pulse Ox O2 O2 Flow FiO2 Time Delivery Rate 07/06/18 73 16:01 07/06/18 98.4 18 167/87 90 15:34 (113) 07/06/18 Nasal 2.0 12:49 Cannula Exam Exam General: Obese gentleman no acute distress HEENT: NC/AT. pupils are equal. round. NECK: no stridor. CV: RRR. systolic murmur; no gallop or rubs. PULM: no wheezing . Mild rhonchi . GI: SOFT, NT, ND, no rebound or guarding Extremity: trace B/L LE edema. no clubbing. neuro: awake and alert, OX3. Psych: calm and pleasant rectal: deferred : normal EKG shows normal sinus rhythm. ST-T wave abnormalities suggestive of inferolateral ischemia Echocardiogram was reviewed which showed ejection fraction of 45% Chest x-ray shows: Mild cardiomegaly with pulmonary vascular congestion. Slightly more focal right lower lobe infiltrate. Labs Result Diagram: 07/06/18 1502 07/06/18 0935 Results 24hrs Laboratory Tests Test 07/06/18 09:35 07/06/18 13:06 07/06/18 15:01 07/06/18 15:02 White Blood Count 8.3 9.2 Red Blood Count 3.33 L 3.05 L Hemoglobin 9.7 L 8.7 L 10.4 L Hematocrit 29.5 L 26.9 L 31.3 L Mean Corpuscular 88.6 88.2 Volume Mean Corpuscular 29.1 28.5 L Hemoglobin Mean Corpuscular 32.9 32.3 Hemoglobin Concent Red Cell 13.8 13.9 Distribution Width Platelet Count 209 # 205 Mean Platelet Volume 10.9 H 10.9 H Immature 0.500 H 0.300 Granulocytes % Neutrophils % 69.5 63.2 Lymphocytes % 20.4 27.1 Monocytes % 7.0 7.3 Eosinophils % 2.0 1.7 Basophils % 0.6 0.4 Nucleated Red Blood 0.0 0.0 Cells % Immature 0.040 H 0.030 Granulocytes # Neutrophils # 5.8 5.8 Lymphocytes # 1.7 2.5 Monocytes # 0.6 0.7 Eosinophils # 0.2 0.2 Basophils # 0.1 0.0 Nucleated Red Blood 0.0 0.0 Cells # Sodium Level 140 Potassium Level 4.1 Chloride Level 111 H Carbon Dioxide Level 22 Anion Gap 7 Blood Urea Nitrogen 39 H Creatinine 2.80 H Est Glomerular 23 L Filtrat Rate mL/min Glucose Level 179 Calcium Level 8.4 Total Bilirubin 0.0 L Direct Bilirubin 0.00 Indirect Bilirubin 0.0 Aspartate Amino 24 Transf (AST/SGOT) Alanine 22 Aminotransferase (AL T/SGPT) Alkaline Phosphatase 69 Troponin I 2.440 *H 2.460 *H B-Type Natriuretic 4250 H Peptide Total Protein 5.7 L Albumin 2.8 L Globulin 2.90 Albumin/Globulin 0.96 Ratio Prothrombin Time 13.9 Prothrombin Time 1.1 Ratio INR International 1.06 Normalized Ratio Activated 36.0 H Partial Thromboplast Time Iron Level 48 Total Iron Binding 261 Capacity Percent Iron 18 L Saturation Absolute 0.083 Reticulocyte Count Percent Reticulocyte 2.3 H Count Medications Medications Current Medications IV Flush (NS 3 ml) 3 ml PER PROTOCOL IV ; Start 07/06/18 at 13:00 Ondansetron HCl (Zofran Inj) 4 mg Q6H PRN IV NAUSEA/VOMITING; Start 07/06/18 at 13:00 Aspirin (Aspirin) 81 mg DAILY PO ; Start 07/07/18 at 09:00 Nitroglycerin (Nitroglycerin (Sl Tab) 0.4 Mg) 1 tab Q5M PRN SL .CHEST PAIN; Start 07/06/18 at 13:00 Acetaminophen (Tylenol Tab) 650 mg Q6H PRN PO .PAIN 1-3 OR TEMP; Start 07/06/18 at 13:00 Acetaminophen/ Hydrocodone Bitart ([place]son (5/325)) 1 tab Q6H PRN PO .PAIN 4-6; Start 07/06/18 at 13:00 Morphine Sulfate (morphine) 2 mg Q4H PRN IV .PAIN 7-10; Start 07/06/18 at 13:00 Famotidine (Pepcid) 20 mg DAILY PO Last administered on 07/06/18at 14:49; Admin Dose 20 MG; Start 07/06/18 at 14:00 Diagnostic Test (Pha) (Accu-Chek) 1 ea 02 XX ; Start 07/07/18 at 02:00 Insulin Glargine (Lantus) 19 units DAILY@2000 SC ; Start 07/06/18 at 20:00 Insulin Aspart (Novolog Insulin Pen) 5 unit WITH MEALS SC ; Start 07/06/18 at 18:00 Insulin Aspart (Novolog Insulin Pen) NOVOLOG *MILD* ALGORITHM WITH MEALS BEDTIME SC ; Start 07/06/18 at 18:00 Heparin Sodium (Porcine) (Heparin (1000 Units/ml)) 4,000 unit PER PROTOCOL PRN IV aPTT<47; Start 07/06/18 at 13:00 Miscellaneous Information 1 ea NOTE XX ; Start 07/06/18 at 14:30 Glucose (Glutose) 15 gm Q15M PRN PO DECREASED GLUCOSE; Start 07/06/18 at 14:30 Glucose (Glutose) 22.5 gm Q15M PRN PO DECREASED GLUCOSE; Start 07/06/18 at 14:30 Dextrose (D50w Syringe) 25 ml Q15M PRN IV DECREASED GLUCOSE; Start 07/06/18 at 14:30 Dextrose (D50w Syringe) 50 ml Q15M PRN IV DECREASED GLUCOSE; Start 07/06/18 at 14:30 Glucagon (Glucagen) 1 mg Q15M PRN IM DECREASED GLUCOSE; Start 07/06/18 at 14:30 Glucose (Glutose) 15 gm Q15M PRN BUCCAL DECREASED GLUCOSE; Start 07/06/18 at 14:30 Heparin Sodium (Porcine) (Heparin (1000 Units/ml)) 4,000 unit ONCE ONCE IV ; Start 07/06/18 at 23:00; Stop 07/06/18 at 23:01 Heparin Sodium (Porcine) 250 ml @ 10 mls/hr PER PROTOCOL IV ; Start 07/06/18 at 23:00 Labetalol HCl (Labetalol) 10 mg Q4 PRN IV sbp >160; Start 07/06/18 at 15:00 Sodium Chloride 1,000 ml @ 40 mls/hr Q24H IV Last administered on 07/06/18at 15:48; Admin Dose 40 MLS/HR; Start 07/06/18 at 15:00; Stop 07/07/18 at 15:59 Atorvastatin Calcium (Lipitor) 80 mg HS PO ; Start 07/06/18 at 21:00 Influenza Virus Vaccine Quadrival (Fluzone) 0.5 ml ONCE ONCE IM* ; Start 07/07/18 at 09:00; Stop 07/07/18 at 09:01 Carvedilol (Coreg) 6.25 mg BID PO ; Start 07/06/18 at 21:00; Status UNV Isosorbide Dinitrate (Isordil) 20 mg TID PO ; Start 1/28/19 at 21:00; Status UNV Acetylcysteine (Nac) 600 mg BID PO ; Start 07/06/18 at 21:00; Status UNV Sodium Chloride 1,000 ml @ 70 mls/hr [id number] IV ; Start 07/07/18 at 08:00; Stop 07/07/18 at 15:59; Status UNV JEANNIE FREITAS MD Jul 06, 2018 17:40
[2018-07-06] MEDS: INSULIN ASPART [NOVOLOG] 3 ML PEN SC SCH ×3 (17:46→20:52)
--- NOTE | 2018-07-06 19:20 | NUR ---
Pt is alert and oriented x 4. in good spirits. Pt is aware that he is going to have angiogram tomorrow and will have Heparin drip tonight as per MD. Denies pain. Noted no facial grimacing r/t pain or discomfort.
[2018-07-06 20:00] VITALS: BP 154/79; PULSE 56; PULSE 70; RESP 20
[2018-07-06] MEDS: ACETYLCYSTEINE 600 MG CAP PO SCH (20:54)
[2018-07-06] MEDS: ISOSORBIDE DINITRATE 20 MG TAB PO SCH (20:55)
[2018-07-06] MEDS: ATORVASTATIN 80 MG TAB PO SCH (20:55)
[2018-07-06] MEDS: INSULIN GLARGINE [LANTus] (100 UNITS/ML) SYG SC SCH (20:58)
--- NOTE | 2018-07-06 22:48 | NUR ---
Spoke with Gregg,pharmacist earlier to clear the order. he said to follow the bolus and follow the protocol.Will also ask charge nurse to assist me later when started the heparin drip. Pt on IVf at this time.
--- NOTE | 2018-07-06 22:49 | NUR ---
Called pharmacistEmmanuel, and cofirmed with him pt had Lovenox earlier and will have heparin tonight. he said it is ok since it has been 12 hours.
[2018-07-06] MEDS: HEPARIN 25000 UNITS/250 ML 250 ML IV SCH (23:21)
--- NOTE | 2018-07-06 23:28 | NUR ---
Called Maik, pharmacist, to let him know that charge nurse,Merle, and I started the heparin drip with bolus and now running 1000 units/hr. Did plpace an order for PTT in 6 hours which is at 5am. Noted and carried out.
--- NOTE | 2018-07-06 23:55 | NUR ---
Pt asleep. Pedro Heparin with no A/R noted. On going IVF using a different IV site.
[2018-07-07] VITALS (11 sets, daily range): BP systolic 135–170; BP diastolic 66–90; PULSE 58–71; RESP 19–21
--- NOTE | 2018-07-07 01:26 | NUR ---
Pt asleep with O2 via nasal cannula on. On going Heparin drip. No active bleeding noted. Hourly rounds done and prn.
[2018-07-07] MEDS: ACCU-CHEK XX SCH (02:00)
--- NOTE | 2018-07-07 05:51 | NUR ---
Called lab earlier re: PTT for 5am. I was told that logging rafter laborer are now starting doing lab draw. Saw that it is in the process right now. Will make a follow up.
[2018-07-07] MEDS: HEPARIN 1000 UNITS/ML 10 ML INJ IV PRN ×2 (06:19→12:05)
--- NOTE | 2018-07-07 06:23 | NUR ---
Latest PTT=31. Notified pharmacist, Gregg. He ordered to give 4000units of heparin bolus and increase Heparin drip from 1000 units to 1400 units per hour. Witnessed by another nurse, Sheridan.Notified charge nurse as well, Merle. Will continue monitor. No bleeding noted.
[2018-07-07] MEDS: INSULIN ASPART [NOVOLOG] 3 ML PEN SC SCH ×7 (07:46→20:05)
[2018-07-07] MEDS ORDERED: SOD CHLORIDE 0.9% 1,000 ML IV SCH (08:00)
--- NOTE | 2018-07-07 08:06 | PN ---
DATE: 07/07/2018 SUBJECTIVE: The patient is stable, pending cardiac catheterization today. Please note I spoke to th e patient regarding risks and benefits of cardiac catheterization, including the possibility of contr ast-associated nephropathy. The patient voiced understanding of the risks. He is willing to proceed with catheterization. No other events noted. OBJECTIVE: VITAL SIGNS: Blood pressure is 150/81, respirations 20, pulse 58, temperature 97.8. HEENT: Head is normocephalic. NECK: Supple. HEART: Regular rate. LUNGS: Show diminished breath sounds at the base. ABDOMEN: Soft, nontender to palpation without rebound or guarding. EXTREMITIES: Negative for clubbing, cyanosis, no edema. DERMATOLOGIC: No rashes. MUSCULOSKELETAL: No joint effusion. NEUROLOGIC: No change in exam. MEDICATIONS: The patient's medications have been reviewed. LABORATORY DATA: Shows a white count of 8.6, hemoglobin 9.9, platelet count 222. Sodium 141, potass ium 3.8, BUN 43, creatinine 2.91. The patient's urinalysis shows a protein creatinine ratio of appro ximately 9 grams per gram of creatinine, FENa greater than 1%. ASSESSMENT AND PLAN: 1. Nonoliguric acute kidney disease on top of chronic kidney disease with previous baseline creatini ne of 2.2 mg/dL in 2017, current baseline creatinine unknown. The possibility of progression of unde rlying chronic kidney disease is also a consideration. The patient's urinalysis was bland, no active sediment. The patient does have nephrotic range proteinuria. Renal ultrasound also was reviewed, w hich showed no evidence of hydronephrosis. The patient is scheduled for cardiac catheterization as s tated above. The patient is at moderate risk for contrast-associated nephropathy given underlying ch ronic kidney disease, questionable acute kidney injury. Risks and benefits were explained to the pat ient. The patient is aware. We will premedicate with Mucomyst. Continue gentle IV hydration and mo nitor closely. 2. Anemia. Continue to monitor hemoglobin and hematocrit levels. 3. Mineral bone disorder, monitor calcium and phosphorus levels. 4. Hypertension. Continue current blood pressure regimen. Defer any SAMANTHA inhibitor at this time. 5. Chronic kidney disease, likely diabetic nephropathy with nephrotic range proteinuria. At this po int, we will continue treating acute kidney injury as stated above. Continue disease factor modifica tion. 6. Non-ST elevation myocardial infarction. The patient is pending cardiac catheterization. Follow up with cardiology. 7. Diabetes. Continue current insulin regimen. Dictated By: GRAEME BRANDT DO NR/COLLINS Conf#: [id number] DID#: [id number] CC: SCOT MCKEON MD; JEANNIE FREITAS MD;*EndCC*
[2018-07-07] MEDS: ASPIRIN 81 MG TAB PO SCH (08:14)
[2018-07-07] MEDS: ACETYLCYSTEINE 600 MG CAP PO SCH ×2 (08:15→20:08)
[2018-07-07] MEDS: FAMOTIDINE 20 MG TAB PO SCH (08:15)
[2018-07-07] MEDS: ISOSORBIDE DINITRATE 20 MG TAB PO SCH ×3 (08:18→20:07)
[2018-07-07] MEDS ORDERED: INFLUENZA VIRUS VACCINE 0.5 ML (DISPENSING) IM* ONE (09:00)
[2018-07-07] MEDS: HEPARIN 25000 UNITS/250 ML 250 ML IV SCH ×3 (12:06→19:29)
--- NOTE | 2018-07-07 12:42 | NUR ---
New PTT came 31.2, checked the rated of the Heparin drip and discovered that it was running 14units/hr, instead of as documented 14,000units/Hr, so the PTT did not match with the rate of infusion. Called and made the pharmacist Willi know, Verified the new rate with Pharmacist Willi, Per Pharmacist 4000units bolus given, however the rate does not need to be increased at this time due to the previous consequences. the rate now is 14 ML/hr, Charge nurse made aware. will monitor. Addendum: 07/07/18 at 1415 by CHAPO LIANG RN amend the note, wrong information is included, will put new note.
--- NOTE | 2018-07-07 14:15 | NUR ---
Late note: 1100 New PTT came 31.2, checked the rate of the Heparin drip and discovered that it was running 14units/hr, instead of as documented 1400units/Hr, so the latest PTT did not match with the rate of infusion. Called and made the pharmacist iWlli know, Verified the new rate with Pharmacist Willi, Per Pharmacist 4000units bolus given, however the rate does not need to be increased at this time due to the previous consequences. the rate now is 14 ML/hr, Charge nurse made aware. will monitor.
[2018-07-07] MEDS: SOD CHLORIDE 0.9% 1,000 ML IV SCH ×2 (14:24→15:11)
--- NOTE | 2018-07-07 14:34 | NUR ---
Received a call from [employer] Supervisor. Pt will be picked up for Heart Cath. Heparin Drip was discontinued at this time. will monitor
--- NOTE | 2018-07-07 14:49 | NUR ---
Heparin Drip was restarted since per RN at Cardiac Cath, pt might not have [place] cath today. Will monitor
--- NOTE | 2018-07-07 15:23 | PN ---
Date/Time of Note Date/Time of Note DATE: 07/07/18 TIME: 15:22 Objective Vitals Vital Signs Date Temp Pulse Resp B/P (MAP) Pulse Ox O2 O2 Flow FiO2 Time Delivery Rate 07/07/18 151/73 13:08 (99) 07/07/18 66 13:03 07/07/18 98.3 20 96 11:43 07/07/18 Nasal 2.0 07:50 Cannula Intake and Output 07/06/18 07/06/18 07/07/18 1515:00 23:00 07:00 IntakeIntake Total 240 ml 360 ml 1050 ml OutputOutput Total 500 ml 400 ml 820 ml BalanceBalance -260 ml -40 ml 230 ml Results Result Diagram: 07/07/18 0517 07/07/1817 Medications Medications Current Medications IV Flush (NS 3 ml) 3 ml PER PROTOCOL IV ; Start 07/06/18 at 13:00 Ondansetron HCl (Zofran Inj) 4 mg Q6H PRN IV NAUSEA/VOMITING; Start 07/06/18 at 13:00 Aspirin (Aspirin) 81 mg DAILY PO Last administered on 07/07/18at 08:14; Admin Do se 81 MG; Start 07/07/18 at 09:00 Nitroglycerin (Nitroglycerin (Sl Tab) 0.4 Mg) 1 tab Q5M PRN SL .CHEST PAIN; Start 07/06/18 at 13:00 Acetaminophen (Tylenol Tab) 650 mg Q6H PRN PO .PAIN 1-3 OR TEMP; Start 07/06/18 at 13:00 Acetaminophen/ Hydrocodone Bitart ([place] (5/325)) 1 tab Q6H PRN PO .PAIN 4-6; Start 07/06/18 at 13:00 Morphine Sulfate (morphine) 2 mg Q4H PRN IV .PAIN 7-10; Start 07/06/18 at 13:00 Famotidine (Pepcid) 20 mg DAILY PO Last administered on 07/07/18at 08:15; Admin Dose 20 MG; Start 07/06/18 at 14:00 Diagnostic Test (Pha) (Accu-Chek) 1 ea 02 XX ; Start 07/07/18 at 02:00 Insulin Glargine (Lantus) 19 units DAILY@2000 SC Last administered on 07/06/18at 20:58; Admin Dose 19 UNITS; Start 07/06/18 at 20:00 Insulin Aspart (Novolog Insulin Pen) 5 unit WITH MEALS SC Last administered on 07/06/18at 17:47; Admin Dose 5 UNIT; Start 07/06/18 at 18:00 Insulin Aspart (Novolog Insulin Pen) NOVOLOG *MILD* ALGORITHM WITH MEALS BEDTIME SC Last administered on 07/07/18at 07:46; Admin Dose 1 UNIT; Start 07/06/18 at 18:00 Heparin Sodium (Porcine) (Heparin (1000 Units/ml)) 4,000 unit PER PROTOCOL PRN IV aPTT<47 Last administered on 07/07/18at 12:05; Admin Dose 4,000 UNIT; Start 07/06/18 at 13:00 Miscellaneous Information 1 ea NOTE XX ; Start 07/06/18 at 14:30 Glucose (Glutose) 15 gm Q15M PRN PO DECREASED GLUCOSE; Start 07/06/18 at 14:30 Glucose (Glutose) 22.5 gm Q15M PRN PO DECREASED GLUCOSE; Start 07/06/18 at 14:30 Dextrose (D50w Syringe) 25 ml Q15M PRN IV DECREASED GLUCOSE; Start 07/06/18 at 14:30 Dextrose (D50w Syringe) 50 ml Q15M PRN IV DECREASED GLUCOSE; Start 07/06/18 at 14:30 Glucagon (Glucagen) 1 mg Q15M PRN IM DECREASED GLUCOSE; Start 07/06/18 at 14:30 Glucose (Glutose) 15 gm Q15M PRN BUCCAL DECREASED GLUCOSE; Start 07/06/18 at 14:30 Heparin Sodium (Porcine) 250 ml @ 10 mls/hr PER PROTOCOL IV Last administered on 07/07/18at 12:41; Admin Dose 14 MLS/HR; Start 07/06/18 at 23:00 Labetalol HCl (Labetalol) 10 mg Q4 PRN IV sbp >160; Start 07/06/18 at 15:00 Sodium Chloride 1,000 ml @ 40 mls/hr Q24H IV Last administered on 07/07/18at 15:11; Admin Dose 40 MLS/HR; Start 07/06/18 at 15:00; Stop 07/07/18 at 15:59 Atorvastatin Calcium (Lipitor) 80 mg HS PO Last administered on 07/06/18at 20:55; Admin Dose 80 MG; Start 07/06/18 at 21:00 Carvedilol (Coreg) 6.25 mg BID PO Last administered on 07/07/18at 08:16; Admin Dose 6.25 MG; Start 07/06/18 at 21:00 Isosorbide Dinitrate (Isordil) 20 mg TID PO Last administered on 07/07/18at 12:33; Admin Dose 20 MG; Start 07/06/18 at 21:00 Acetylcysteine (Nac) 600 mg BID PO Last administered on 07/07/18at 08:15; Admin Dose 600 MG; Start 07/06/18 at 21:00 Sodium Chloride 1,000 ml @ 70 mls/hr [id number] IV ; Start 07/07/18 at 08:00; Stop 07/07/18 at 15:59 VTE Prophylaxis Risk score (from Ns)>0 risk: 6 [place] applied [place] [facility] [place] Yes Lines/Catheters IV Catheter Type: Spence in Place: No Assessment/Plan Hospital Course subjective No chest pain, no acute complaints Objective Physical exam General: Patient is laying in bed and answers questions appropriately Mentation: Patient is alert and oriented 4, Head: Normocephalic atraumatic Eyes: EOMI, pupils reactive to light Neck: Supple, nontender, midline Respiratory: Clear to auscultation bilaterally Cardiovascular: regular rate, no obvious murmurs Gastrointestinal: non-tender to palpation, bowel sounds heard. Neurological: Moves all extremities spontaneously Skin: No new skin lesions Assessment and plan Non-ST elevated WI -Cardiology consulted, Dr. Benedict -Troponin elevated, stabilized -Patient given Lovenox in the ED, however due to patient's poor renal function will start heparin drip at next scheduled dose instead of Lovenox -EKG noted -Echocardiogram -Patient does take cardiac medications at home, however are different than what we have reconciled here in the computer, for instance patient does not take Brilinta, instructed patient's to bring home medications. Patient states that he believes he is taking a baby aspirin, nitrate, Coreg, amlodipine. Will defer to cardiology for medications for now until patient's home medications are brought in Acute kidney injury on CKD -Nephrology consulted -Mild increase of baseline -Mild hydration for now Anemia -Patient does have mild anemia however other abnormalities are likely due to lab error as patient's hemoglobin has now stabilized, monitor Diabetes mellitus -Insulin while in house Hypertension -Continue home meds when able Disposition -Cardiac cath today SCOT MCKEON Jul 07, 2018 15:23
--- NOTE | 2018-07-07 15:25 | CONS ---
Consult Date/Type/Reason Admit Date/Time Jul 06, 2018 at 12:07 Initial Consult Date 07/06/18 Type of Consultation: cv Requesting Provider: SCOT MCKEON Date/Time of Note DATE: 07/07/18 TIME: 15:22 Subjective Interventional cardiology follow-up progress note Subjective: Discussed with the staff for multiple family nurse at the bedside. Discussed with the physicians. Telemetry was reviewed patient remains in normal sinus rhythm. Patient with no chest pain or pressure now. No bleeding is reported Objective: General: Obese gentleman no acute distress HEENT: NC/AT. pupils are equal. round. NECK: no stridor. CV: RRR. systolic murmur; no gallop or rubs. PULM: no wheezing . Mild rhonchi . GI: SOFT, NT, ND, no rebound or guarding Extremity: trace B/L LE edema. no clubbing. neuro: awake and alert, OX3. Psych: calm and pleasant rectal: deferred : normal EKG shows normal sinus rhythm. ST-T wave abnormalities suggestive of inferolateral ischemia Echocardiogram was reviewed which showed ejection fraction of 45% Chest x-ray shows: Mild cardiomegaly with pulmonary vascular congestion. Slightly more focal right lower lobe infiltrate. Objective Vitals Vital Signs Date Temp Pulse Resp B/P (MAP) Pulse Ox O2 O2 Flow FiO2 Time Delivery Rate 07/07/18 151/73 13:08 (99) 07/07/18 66 13:03 07/07/18 98.3 20 96 11:43 07/07/18 Nasal 2.0 07:50 Cannula Intake and Output 07/06/18 07/06/18 07/07/18 1515:00 23:00 07:00 IntakeIntake Total 240 ml 360 ml 1050 ml OutputOutput Total 500 ml 400 ml 820 ml BalanceBalance -260 ml -40 ml 230 ml Results/Medications Result Diagram: 07/07/18 0517 07/07/18 0517 Results 24 hrs Laboratory Tests Test 07/06/18 17:30 07/06/18 17:43 07/06/18 20:51 07/06/18 21:42 Urine Color STRAW Urine Clarity CLEAR Urine pH 6.0 Urine Specific 1.009 [place] Urine Ketones NEGATIVE Urine Nitrite NEGATIVE Urine Bilirubin NEGATIVE Urine Urobilinogen NEGATIVE Urine Leukocyte NEGATIVE Esterase Urine Microscopic 0 RBC Urine Microscopic 1 WBC Urine Bacteria FEW A Urine Hemoglobin 1+ H Urine Random 24.48 Creatinine Urine Random Sodium 123 H Urine Glucose 1+ H Urine Total Protein 348.0 H Bedside Glucose 181 127 Troponin I 2.430 *H Test 07/07/18 01:53 07/07/18 05:17 07/07/18 07:41 07/07/18 10:34 Bedside Glucose 196 149 White Blood Count 8.6 Red Blood Count 3.44 L Hemoglobin 9.9 L Hematocrit 30.1 L Mean Corpuscular 87.5 Volume Mean Corpuscular 28.8 L Hemoglobin Mean Corpuscular 32.9 Hemoglobin Concent Red Cell 13.8 Distribution Width Platelet Count 222 Mean Platelet Volume 11.6 H Immature 0.300 Granulocytes % Neutrophils % 63.6 Lymphocytes % 26.4 Monocytes % 7.1 Eosinophils % 2.1 Basophils % 0.5 Nucleated Red Blood 0.0 Cells % Immature 0.030 Granulocytes # Neutrophils # 5.5 Lymphocytes # 2.3 Monocytes # 0.6 Eosinophils # 0.2 Basophils # 0.0 Nucleated Red Blood 0.0 Cells # Activated 31.0 31.2 Partial Thromboplast Time Sodium Level 141 Potassium Level 3.8 Chloride Level 109 Carbon Dioxide Level 22 Anion Gap 10 Blood Urea Nitrogen 43 H Creatinine 2.91 H Est Glomerular 22 L Filtrat Rate mL/min Glucose Level 159 Hemoglobin A1c 9.3 H Calcium Level 8.2 L Magnesium Level 1.7 Total Bilirubin 0.0 L Direct Bilirubin 0.00 Indirect Bilirubin 0.0 Aspartate Amino 23 Transf (AST/SGOT) Alanine 16 Aminotransferase (AL T/SGPT) Alkaline Phosphatase 68 Total Protein 5.9 L Albumin 2.8 L Globulin 3.10 Albumin/Globulin 0.90 Ratio Triglycerides Level 436 H Cholesterol Level 221 H LDL Cholesterol, 106 Calculated HDL Cholesterol 28 L Cholesterol/HDL 7.8 Ratio Thyroid Stimulating 8.590 H Hormone (TSH) Test 07/07/18 12:02 Bedside Glucose 127 Home Meds Active Scripts Carvedilol* (Carvedilol*) 6.25 Mg Tablet, 6.25 MG PO BID for 60 Days, #120 TAB Prov:BHARATH KING MD 04/13/17 Ticagrelor* (Brilinta*) 90 Mg Tablet, 90 MG PO BID for 60 Days, #120 TAB Prov:BHARATH KING MD 04/13/17 Reported Medications Gemfibrozil* (Gemfibrozil*) 600 Mg Tablet, 600 MG PO BID, TAB 04/05/17 [place]-3 Acid Ethyl Esters (Lovaza) 1 Gm Capsule, 1 GM PO BID, CAP 04/05/17 Insulin Glargine* (Lantus*) 100 Unit/Ml Soln, 30 UNIT SC DAILY, #1 VIAL 04/05/17 Aspirin (Low Dose Aspirin) 81 Mg Tablet.dr, 81 MG PO DAILY, #30 TAB 04/05/17 Atorvastatin Calcium* (Atorvastatin Calcium*) 20 Mg Tablet, 20 MG PO QHS, #30 TAB 04/05/17 Amlodipine Besylate* (Amlodipine Besylate*) 10 Mg Tablet, 10 MG PO DAILY, #30 TAB 04/05/17 Discontinued Reported Medications Metformin Hcl* (Metformin Hcl*) 1,000 Mg Tablet, 1000 MG PO WITH BREAKFAST DINNE, #30 TAB 04/05/17 Medications Current Medications IV Flush (NS 3 ml) 3 ml PER PROTOCOL IV ; Start 07/06/18 at 13:00 Ondansetron HCl (Zofran Inj) 4 mg Q6H PRN IV NAUSEA/VOMITING; Start 07/06/18 at 13:00 Aspirin (Aspirin) 81 mg DAILY PO Last administered on 07/07/18at 08:14; Admin Dose 81 MG; Start 07/07/18 at 09:00 Nitroglycerin (Nitroglycerin (Sl Tab) 0.4 Mg) 1 tab Q5M PRN SL .CHEST PAIN; Start 07/06/18 at 13:00 Acetaminophen (Tylenol Tab) 650 mg Q6H PRN PO .PAIN 1-3 OR TEMP; Start 07/06/18 at 13:00 Acetaminophen/ Hydrocodone Bitart ([place] (5/325)) 1 tab Q6H PRN PO .PAIN 4-6; Start 07/06/18 at 13:00 Morphine Sulfate (morphine) 2 mg Q4H PRN IV .PAIN 7-10; Start 07/06/18 at 13:00 Famotidine (Pepcid) 20 mg DAILY PO Last administered on 07/07/18at 08:15; Admin Dose 20 MG; Start 07/06/18 at 14:00 Diagnostic Test (Pha) (Accu-Chek) 1 02 XX ; Start 07/07/18 at 02:00 Insulin Glargine (Lantus) 19 units DAILY@2000 SC Last administered on 07/06/18at 20:58; Admin Dose 19 UNITS; Start 07/06/18 at 20:00 Insulin Aspart (Novolog Insulin Pen) 5 unit WITH MEALS SC Last administered on 07/06/18at 17:47; Admin Dose 5 UNIT; Start 07/06/18 at 18:00 Insulin Aspart (Novolog Insulin Pen) NOVOLOG *MILD* ALGORITHM WITH MEALS BEDTIME SC Last administered on 07/07/18at 07:46; Admin Dose 1 UNIT; Start 07/06/18 at 18:00 Heparin Sodium (Porcine) (Heparin (1000 Units/ml)) 4,000 unit PER PROTOCOL PRN IV aPTT<47 Last administered on 07/07/18at 12:05; Admin Dose 4,000 UNIT; Start 07/06/18 at 13:00 Miscellaneous Information 1 ea NOTE XX ; Start 07/06/18 at 14:30 Glucose (Glutose) 15 gm Q15M PRN PO DECREASED GLUCOSE; Start 07/06/18 at 14:30 Glucose (Glutose) 22.5 gm Q15M PRN PO DECREASED GLUCOSE; Start 07/06/18 at 14:30 Dextrose (D50w Syringe) 25 ml Q15M PRN IV DECREASED GLUCOSE; Start 07/06/18 at 14:30 Dextrose (D50w Syringe) 50 ml Q15M PRN IV DECREASED GLUCOSE; Start 07/06/18 at 14:30 Glucagon (Glucagen) 1 mg Q15M PRN IM DECREASED GLUCOSE; Start 07/06/18 at 14:30 Glucose (Glutose) 15 gm Q15M PRN BUCCAL DECREASED GLUCOSE; Start 07/06/18 at 14:30 Heparin Sodium (Porcine) 250 ml @ 10 mls/hr PER PROTOCOL IV Last administered on 07/07/18at 12:41; Admin Dose 14 MLS/HR; Start 07/06/18 at 23:00 Labetalol HCl (Labetalol) 10 mg Q4 PRN IV sbp >160; Start 07/06/18 at 15:00 Sodium Chloride 1,000 ml @ 40 mls/hr Q24H IV Last administered on 07/07/18at 15:11; Admin Dose 40 MLS/HR; Start 07/06/18 at 15:00; Stop 07/07/18 at 15:59 Atorvastatin Calcium (Lipitor) 80 mg HS PO Last administered on 07/06/18at 20:55; Admin Dose 80 MG; Start 07/06/18 at 21:00 Carvedilol (Coreg) 6.25 mg BID PO Last administered on 07/07/18at 08:16; Admin Dose 6.25 MG; Start 07/06/18 at 21:00 Isosorbide Dinitrate (Isordil) 20 mg TID PO Last administered on 07/07/18at 12:33; Admin Dose 20 MG; Start 07/06/18 at 21:00 Acetylcysteine (Nac) 600 mg BID PO Last administered on 07/07/18at 08:15; Admin Dose 600 MG; Start 07/06/18 at 21:00 Sodium Chloride 1,000 ml @ 70 mls/hr [id number] IV ; Start 07/07/18 at 08:00; Stop 07/07/18 at 15:59 Assessment/Plan Hospital Course (Demo Recall) 1. Non-ST elevation myocardial infarction 2. Coronary artery disease with history of previous MIs 3. History of PCI 4. Hypertension 5. Diabetes 6. Congestive heart failure class IV on arrival 7. Dyslipidemia 8. Active smoker and possibly COPD 9. Renal failure acute on chronic Recommendations: Aspirin will be continued Coreg statin will be resumed Off of any SAMANTHA inhibitor or ARB due to his renal insufficiency Patient has been appropriately started on heparin drip. We will continue it for now Medical optimization of renal optimization will be continued. Patient has already been evaluated by renal We will hold off on coronary angiogram today given his worsening renal function as well as his lack of any more chest pain. Different options discussed with the patient and the family. We decided to hold off on angiogram now until patient's renal function stabilizes and improves to his baseline. Once renal function is stable we will plan for coronary angiogram. Risks benefits and alternatives of procedure discussed with the patient and family in detail. Risks including but not limited to risk of infection vascular congestion bleeding complication MT stroke arrhythmia renal failure etc. discussed with them in detail. Very high risk of renal failure given his baseline abnormality was discussed with the patient and the family. Consent has been obtained Thank you for his referral. We will continue to follow along with you, until patient is discharged and to follow-up with his regular [facility] representatives Dr.Fakheri JEANNIE FREITAS MD FACC JEANNIE FREITAS MD Jul 07, 2018 15:24
[2018-07-07] MEDS: LABETALOL HCL 20MG INJ IV PRN (17:00)
--- NOTE | 2018-07-07 18:38 | NUR ---
EOSS: Pt is stable, VS are WNL, Pt is on Heparin drip, at 14ml/hr. PTT was drawn. Heart Cath was cancelled at this time since pt's kidney function is impaired. Will endorse the care to shift foreman nurse.
--- NOTE | 2018-07-07 19:39 | NUR ---
Received a report from the lab with PTT of 81.3. Notified pharmacist, Tai, she made a new order, noted and carried out with the charge nurse, Ekaterina.Will recheck PTT in 6 hours again at 01:30
[2018-07-07] MEDS: ATORVASTATIN 80 MG TAB PO SCH (20:07)
[2018-07-07] MEDS: INSULIN GLARGINE [LANTus] (100 UNITS/ML) SYG SC SCH (20:11)
--- NOTE | 2018-07-07 21:41 | NUR ---
Pt is alert and oriented x 4. NO active bleeding noted. pt is going to another room as per pt request. Denies pain. On going Heparin drip . Will have labwork at 01:30 for PTT. Pt aware. Bed alarm on, call light within reach.
[2018-07-08] VITALS (14 sets, daily range): BP systolic 131–173; BP diastolic 59–91; PULSE 51–81; RESP 18–22
--- NOTE | 2018-07-08 01:39 | NUR ---
PTT in process. Waiting for the result if needed heparin to be adjusted.
[2018-07-08] MEDS: ACCU-CHEK XX SCH (02:00)
--- NOTE | 2018-07-08 02:03 | NUR ---
Latest PTT=55.8 Notified pharmacist , Gregg. He said to increase to 1500units. As per protocol, it's 1500units. Noted and will carry out. Will do PTT labwork in 6 hours as per protocol.
[2018-07-08] MEDS: HEPARIN 25000 UNITS/250 ML 250 ML IV SCH (02:14)
--- NOTE | 2018-07-08 03:50 | NUR ---
At 03:17, pt had a heart rate of 53, 2:1 heart block for 5 secs. at 03:23, pt had 2:1 heart block in 24 secs with HR of 24. Did EKG with abnormal EKG result. Called and Dr Benedict called back. He said if pt asleep and it happens again, wake him up, possible sleep apnea. Noted and will carry out. pt is now awake. No c/o chest pain. pt said he's just having a nightmare and got so thirsty.
--- NOTE | 2018-07-08 05:24 | NUR ---
Pt is sleeping comfortably at this time. On going heparin drip. Will have another PTT at 8:00.Will endorse to the morning nurse. On SR. Will continue monitor. Bed alarm on, call light within reach.
--- NOTE | 2018-07-08 07:02 | NUR ---
Pt had another episode of heart block type 2, HR was 23. Woke the pt up and HR went back up 56. Pt was sleeping soundly. Morning nurse aware of the episode. Will give her a report.
[2018-07-08] MEDS: INSULIN ASPART [NOVOLOG] 3 ML PEN SC SCH ×7 (08:00→20:13)
[2018-07-08] MEDS: FAMOTIDINE 20 MG TAB PO SCH (08:03)
[2018-07-08] MEDS: ASPIRIN 81 MG TAB PO SCH (08:03)
[2018-07-08] MEDS: ACETYLCYSTEINE 600 MG CAP PO SCH ×2 (08:03→20:06)
[2018-07-08] MEDS: ISOSORBIDE DINITRATE 20 MG TAB PO SCH ×3 (08:05→20:13)
--- NOTE | 2018-07-08 08:08 | CONS ---
Consult Date/Type/Reason Admit Date/Time Jul 06, 2018 at 12:07 Initial Consult Date 07/06/18 Type of Consultation: cv Requesting Provider: SCOT MCKEON Date/Time of Note DATE: 07/08/18 TIME: 08:07 Subjective Interventional cardiology follow-up progress note Subjective: Discussed with the staff Discussed with the physicians. Telemetry was reviewed patient remains in normal sinus rhythm/ sinus wood with episodes of 2-1 AV block which appears to be asymptomatic and mostly during sleep time. Patient with no chest pain or pressure now. No bleeding is reported Objective: General: Obese gentleman no acute distress HEENT: NC/AT. pupils are equal. round. NECK: no stridor. CV: RRR. systolic murmur; no gallop or rubs. PULM: no wheezing . Mild rhonchi . GI: SOFT, NT, ND, no rebound or guarding Extremity: trace B/L LE edema. no clubbing. neuro: awake and alert, OX3. Psych: calm and pleasant rectal: deferred : normal EKG shows normal sinus rhythm. ST-T wave abnormalities suggestive of inferolateral ischemia Echocardiogram was reviewed which showed ejection fraction of 45% Chest x-ray shows: Mild cardiomegaly with pulmonary vascular congestion. Slightly more focal right lower lobe infiltrate. Objective Vitals Vital Signs Date Temp Pulse Resp B/P (MAP) Pulse Ox O2 O2 Flow FiO2 Time Delivery Rate 07/08/18 97.7 65 22 173/91 96 Nasal 07:36 (118) Cannula 07/08/18 2.0 07:28 Intake and Output 07/07/18 07/07/18 07/08/18 1515:00 23:00 07:00 IntakeIntake Total 600 ml 440 ml 733 ml OutputOutput Total 1200 ml BalanceBalance 600 ml 440 ml -467 ml Results/Medications Result Diagram: 07/07/18 0517 07/07/18 0517 Results 24 hrs Laboratory Tests Test 07/07/18 10:34 07/07/18 12:02 07/07/18 17:04 07/07/18 18:11 Activated 31.2 81.3 *H Partial Thromboplast Time Bedside Glucose 127 181 Test 07/07/18 20:04 07/08/18 01:20 07/08/18 02:13 Bedside Glucose 224 H 130 Activated 55.8 H Partial Thromboplast Time Home Meds Active Scripts Carvedilol* (Carvedilol*) 6.25 Mg Tablet, 6.25 MG PO BID for 60 Days, #120 TAB Prov:BHARATH KING MD 04/13/17 Ticagrelor* (Brilinta*) 90 Mg Tablet, 90 MG PO BID for 60 Days, #120 TAB Prov:BHARATH KING MD 04/13/17 Reported Medications Gemfibrozil* (Gemfibrozil*) 600 Mg Tablet, 600 MG PO BID, TAB 04/05/17 [place] Acid Ethyl Esters (Lovaza) 1 Gm Capsule, 1 GM PO BID, CAP 04/05/17 Insulin Glargine* (Lantus*) 100 Unit/Ml Soln, 30 UNIT SC DAILY, #1 VIAL 04/05/17 Aspirin (Low Dose Aspirin) 81 Mg Tablet.dr, 81 MG PO DAILY, #30 TAB 04/05/17 Atorvastatin Calcium* (Atorvastatin Calcium*) 20 Mg Tablet, 20 MG PO QHS, #30 TAB 04/05/17 Amlodipine Besylate* (Amlodipine Besylate*) 10 Mg Tablet, 10 MG PO DAILY, #30 TAB 04/05/17 Discontinued Reported Medications Metformin Hcl* (Metformin Hcl*) 1,000 Mg Tablet, 1000 MG PO WITH BREAKFAST DINNE, #30 TAB 04/05/17 Medications Current Medications IV Flush (NS 3 ml) 3 ml PER PROTOCOL IV ; Start 07/06/18 at 13:00 Ondansetron HCl (Zofran Inj) 4 mg Q6H PRN IV NAUSEA/VOMITING; Start 07/06/18 at 13:00 Aspirin (Aspirin) 81 mg DAILY PO Last administered on 07/08/18at 08:03; Admin Dose 81 MG; Start 07/07/18 at 09:00 Nitroglycerin (Nitroglycerin (Sl Tab) 0.4 Mg) 1 tab Q5M PRN SL .CHEST PAIN; Start 07/06/18 at 13:00 Acetaminophen (Tylenol Tab) 650 mg Q6H PRN PO .PAIN 1-3 OR TEMP; Start 07/06/18 at 13:00 Acetaminophen/ Hydrocodone Bitart ([place] (5/325)) 1 tab Q6H PRN PO .PAIN 4-6; Start 07/06/18 at 13:00 Morphine Sulfate (morphine) 2 mg Q4H PRN IV .PAIN 7-10; Start 07/06/18 at 13:00 Famotidine (Pepcid) 20 mg DAILY PO Last administered on 07/08/18at 08:03; Admin Dose 20 MG; Start 07/06/18 at 14:00 Diagnostic Test (Pha) (Accu-Chek) 1 ea 02 XX ; Start 07/07/18 at 02:00 Insulin Glargine (Lantus) 19 units DAILY@2000 SC Last administered on 07/07/18at 20:11; Admin Dose 19 UNITS; Start 07/06/18 at 20:00 Insulin Aspart (Novolog Insulin Pen) 5 unit WITH MEALS SC Last administered on 07/08/18 08:02; Admin Dose 5 UNIT; Start 07/06/18 at 18:00 Insulin Aspart (Novolog Insulin Pen) NOVOLOG *MILD* ALGORITHM WITH MEALS BED TIME SC Last administered on 07/07/18at 20:05; Admin Dose 2 UNIT; Start 07/06/18 at 18:00 Heparin Sodium (Porcine) (Heparin (1000 Units/ml)) 4,000 unit PER PROTOCOL PRN IV aPTT<47 Last administered on 07/07/18at 12:05; Admin Dose 4,000 UNIT; Start 07/06/18 at 13:00 Miscellaneous Information 1 ea NOTE XX ; Start 07/06/18 at 14:30 Glucose (Glutose) 15 gm Q15M PRN PO DECREASED GLUCOSE; Start 07/06/18 at 14:30 Glucose (Glutose) 22.5 gm Q15M PRN PO DECREASED GLUCOSE; Start 07/06/18 at 14:30 Dextrose (D50w Syringe) 25 ml Q15M PRN IV DECREASED GLUCOSE; Start 07/06/18 at 14:30 Dextrose (D50w Syringe) 50 ml Q15M PRN IV DECREASED GLUCOSE; Start 07/06/18 at 14:30 Glucagon (Glucagen) 1 mg Q15M PRN IM DECREASED GLUCOSE; Start 07/06/18 at 14:30 Glucose (Glutose) 15 gm Q15M PRN BUCCAL DECREASED GLUCOSE; Start 07/06/18 at 14:30 Heparin Sodium (Porcine) 250 ml @ 10 mls/hr PER PROTOCOL IV Last administered on 07/08/18at 02:14; Admin Dose 15 MLS/HR; Start 07/06/18 at 23:00 Labetalol HCl (Labetalol) 10 mg Q4 PRN IV sbp >160 Last administered on 07/07/18at 17:00; Admin Dose 10 MG; Start 07/06/18 at 15:00 Atorvastatin Calcium (Lipitor) 80 mg HS PO Last administered on 07/07/18at 20:07; Admin Dose 80 MG; Start 07/06/18 at 21:00 Carvedilol (Coreg) 6.25 mg BID PO Last administered on 07/08/18at 08:04; Admin Dose 6.25 MG; Start 07/06/18 at 21:00 Isosorbide Dinitrate (Isordil) 20 mg TID PO Last administered on 07/08/18at 08:05; Admin Dose 20 MG; Start 07/06/18 at 21:00 Acetylcysteine (Nac) 600 mg BID PO Last administered on 07/08/18at 08:03; Admin Dose 600 MG; Start 07/06/18 at 21:00 Assessment/Plan Hospital Course (Demo Recall) 1. Non-ST elevation myocardial infarction 2. Coronary artery disease with history of previous MIs 3. History of PCI 4. Hypertension 5. Diabetes 6. Congestive heart failure class IV on arrival 7. Dyslipidemia 8. Active smoker and possibly COPD 9. Renal failure acute on chronic 10. Episode of 2-1 AV block so far asymptomatic Recommendations: Aspirin will be continued I will decrease the carvedilol to 3.125 p.o. twice daily and add hydralazine to his regimen. Nitroglycerin to be continued as well statin will be resumed Off of any SAMANTHA inhibitor or ARB due to his renal insufficiency We will stop the heparin drip and place him on DVT prophylaxis dose only Medical optimization of renal optimization will be continued. Patient has already been evaluated by renal We will hold off on coronary angiogram today given his worsening renal function as well as his lack of any more chest pain. Different options discussed with the patient and the family. We decided to hold off on angiogram now until patient's renal function stabilizes and improves to his baseline. Once renal function is stable we will plan for coronary angiogram. Risks benefits and alternatives of procedure discussed with the patient and family in detail. Risks including but not limited to risk of infection vascular congestion bleeding complication [place] stroke arrhythmia renal failure etc. discussed with them in detail. Very high risk of renal failure given his baseline abnormality was discussed with the patient and the family. Consent has been obtained Thank you for his referral. 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
--- NOTE | 2018-07-08 08:32 | PN ---
DATE: 07/08/2018 SUBJECTIVE: The patient had episodes of apnea and bradycardia overnight. No other events noted. OBJECTIVE: VITAL SIGNS: Blood pressure is 173/91, respirations 22, pulse 65, temperature 97.7. HEENT: Head is normocephalic. NECK: Supple. HEART: Regular rate. LUNGS: Show diminished breath sounds at the base. ABDOMEN: Soft, nontender to palpation without rebound or guarding. EXTREMITIES: Negative for clubbing, cyanosis, no edema. DERMATOLOGIC: No rashes. MUSCULOSKELETAL: No joint effusions. NEUROLOGIC: No change in exam. MEDICATIONS: Reviewed. LABORATORY DATA: For 07/08/2018 is pending. ASSESSMENT AND PLAN: 1. Nonoliguric acute kidney injury on top of chronic kidney disease with previous baseline creatinin e of around 2.2 mg/dL in 2017. Current baseline creatinine is unknown. The possibility of progressi on of chronic kidney is likely consideration. The patient's urinalysis shows no active sediment. Th e patient does have nephrotic range proteinuria, which could be secondary to underlying diabetic neph ropathy. At this point, we would continue current treatment plans, supportive care, renally dose all medicines. Defer SAMANTHA inhibitor at this time and monitor closely. 2. Chronic kidney disease with nephrotic range proteinuria, likely diabetic nephropathy. The patien t is currently stable. Further serological workup will be checked. Defer SAMANTHA inhibitor at this time as the patient may be in acute kidney injury. Otherwise, continue disease factor modification. 3. Diabetes. Continue current insulin regimen. 4. Anemia. Monitor hemoglobin and hematocrit levels. 5. Mineral bone disorder. Monitor calcium and phosphorus levels. 6. Hypertension. Continue current blood pressure regimen, holding SAMANTHA inhibitor at this time. 7. Non-St elevation myocardial infarction. Continue medical management. Cardiac catheterization cooper s been held in the setting of possible acute injury per cardiology. Continue to monitor. Dictated By: GRAEME BRANDT DO NR/NTS Conf#: [id number] DID#: [id number] CC: JEANNIE FREITAS MD; SCOT MCKEON MD;*End*
[2018-07-08] MEDS: HEPARIN 5,000 UNIT/1 ML VIAL SC SCH ×2 (14:20→20:16)
--- NOTE | 2018-07-08 14:43 | PN ---
Date/Time of Note Date/Time of Note DATE: 07/08/18 TIME: 14:42 Objective Vitals Vital Signs Date Temp Pulse Resp B/P (MAP) Pulse Ox O2 O2 Flow FiO2 Time Delivery Rate 07/08/18 63 12:09 07/08/18 98.3 131/61 92 Room Air 10:55 (84) 07/08/18 22 07:36 07/08/18 2.0 07:28 Intake and Output 07/07/18 07/07/18 07/08/18 1515:00 23:00 07:00 IntakeIntake Total 600 ml 440 ml 733 ml OutputOutput Total 1200 ml BalanceBalance 600 ml 440 ml -467 ml Results Result Diagram: 07/08/18 0752 07/08/18 0754 Medications Medications Current Medications IV Flush (NS 3 ml) 3 ml PER PROTOCOL IV ; Start 07/06/18 at 13:00 Ondansetron HCl (Zofran Inj) 4 mg Q6H PRN IV NAUSEA/VOMITING; Start 07/06/18 at 13:00 Aspirin (Aspirin) 81 mg DAILY PO Last administered on 07/08/18at 08:03; Admin Dose 81 MG; Start 07/07/18 at 09:00 Nitroglycerin (Nitroglycerin (Sl Tab) 0.4 Mg) 1 tab Q5M PRN SL .CHEST PAIN; Start 07/06/18 at 13:00 Acetaminophen (Tylenol Tab) 650 mg Q6H PRN PO .PAIN 1-3 OR TEMP; Start 07/06/18 at 13:00 Acetaminophen/ Hydrocodone Bitart ([place] (5/325)) 1 tab Q6H PRN PO .PAIN 4-6; Start 07/06/18 at 13:00 Morphine Sulfate (morphine) 2 mg Q4H PRN IV .PAIN 7-10; Start 07/06/18 at 13:00 Famotidine (Pepcid) 20 mg DAILY PO Last administered on 07/08/18at 08:03; Admin Dose 20 MG; Start 07/06/18 at 14:00 Diagnostic Test (Pha) (Accu-Chek) 1 ea 02 XX ; Start 07/07/18 at 02:00 Insulin Glargine (Lantus) 19 units DAILY@2000 SC Last administered on 07/07/18at 20:11; Admin Dose 19 UNITS; Start 07/06/18 at 20:00 Insulin Aspart (Novolog Insulin Pen) 5 unit WITH MEALS SC Last administered on 07/08/18at 12:03; Admin Dose 5 UNIT; Start 07/06/18 at 18:00 Insulin Aspart (Novolog Insulin Pen) NOVOLOG *MILD* ALGORITHM WITH MEALS BEDTIME SC Last administered on 07/08/18at 12:03; Admin Dose 1 UNIT; Start 07/06/18 at 18:00 Miscellaneous Information 1 ea NOTE XX ; Start 07/06/18 at 14:30 Glucose (Glutose) 15 gm Q15M PRN PO DECREASED GLUCOSE; Start 07/06/18 at 14:30 Glucose (Glutose) 22.5 gm Q15M PRN PO DECREASED GLUCOSE; Start 07/06/18 at 14:30 Dextrose (D50w Syringe) 25 ml Q15M PRN IV DECREASED GLUCOSE; Start 07/06/18 at 14:30 Dextrose (D50w Syringe) 50 ml Q15M PRN IV DECREASED GLUCOSE; Start 07/06/18 at 14:30 Glucagon (Glucagen) 1 mg Q15M PRN IM DECREASED GLUCOSE; Start 07/06/18 at 14:30 Glucose (Glutose) 15 gm Q15M PRN BUCCAL DECREASED GLUCOSE; Start 07/06/18 at 14:30 Labetalol HCl (Labetalol) 10 mg Q4 PRN IV sbp >160 Last administered on 07/07/18at 17:00; Admin Dose 10 MG; Start 07/06/18 at 15:00 Atorvastatin Calcium (Lipitor) 80 mg HS PO Last administered on 07/07/18at 20:07; Admin Dose 80 MG; Start 07/06/18 at 21:00 Isosorbide Dinitrate (Isordil) 20 mg TID PO Last administered on 07/08/18at 12:54; Admin Dose 20 MG; Start 07/06/18 at 21:00 Acetylcysteine (Nac) 600 mg BID PO Last administered on 07/08/18at 08:03; Admin Dose 600 MG; Start 07/06/18 at 21:00 Carvedilol (Coreg) 3.125 mg BID PO ; Start 07/08/18 at 09:00 Hydralazine HCl (Apresoline) 50 mg TID PO Last administered on 07/08/18at 12:55; Admin Dose 50 MG; Start 07/08/18 at 09:00 Heparin Sodium (Porcine) (Heparin (5000 Units/1ml)) 5,000 unit Q8 SC Last administered on 07/08/18at 14:20; Admin Dose 5,000 UNIT; Start 07/08/18 at 14:00 VTE Prophylaxis Risk score (from Nsg)>0 risk: 7 SCD applied (from Nsg): Yes Lines/Catheters IV Catheter Type: Spence in Place: No Assessment/Plan Hospital Course subjective No chest pain, no acute complaints Objective Physical exam General: Patient is laying in bed and answers questions appropriately Mentation: Patient is alert and oriented 4, Head: Normocephalic atraumatic Eyes: EOMI, pupils reactive to light Neck: Supple, nontender, midline Respiratory: Clear to auscultation bilaterally Cardiovascular: regular rate, no obvious murmurs Gastrointestinal: non-tender to palpation, bowel sounds heard. Neurological: Moves all extremities spontaneously Skin: No new skin lesions Assessment and plan Non-ST elevated [place] -Cardiology consulted, Dr. Benedict -Troponin elevated, stabilized -Patient given Lovenox in the ED, however due to patient's poor renal function will start heparin drip at next scheduled dose instead of Lovenox -EKG noted -Echocardiogram -Patient does take cardiac medications at home, however are different than what we have reconciled here in the computer, for instance patient does not take Brilinta, instructed patient's to bring home medications. Patient states that he believes he is taking a baby aspirin, nitrate, Coreg, amlodipine. Will defer to cardiology for medications for now until patient's home medications are brought in Acute kidney injury on CKD -Nephrology consulted -Mild increase of baseline -Mild hydration for now Anemia -Patient does have mild anemia however other abnormalities are likely due to lab error as patient's hemoglobin has now stabilized, monitor Diabetes mellitus -Insulin while in house Hypertension -Continue home meds when able Disposition -Cardiac cath when renal function improves SCOT MCKEON Jul 08, 2018 14:43
--- NOTE | 2018-07-08 18:40 | NUR ---
EOSS: Pt is stable, VS are WNL, BP is more controlled. Heparin Drip was stopped in AM. Pt did not report any s/s of bleeding. Blood sugar is controlled, Pt did not complain of any chest pain or discomfort throughout the shift will endorse the care to night shift supervisor nurse.
--- NOTE | 2018-07-08 19:10 | NUR ---
Pt is alert and oriented x 4. No episode of heart block second degree. Seen by telephonic nurse case manager today. Denies pain. On 2L of O2 via nasal cannula.Ambulatory. No more Heparin drip. Will continue monitor.
[2018-07-08] MEDS: ATORVASTATIN 80 MG TAB PO SCH (20:07)
[2018-07-08] MEDS: INSULIN GLARGINE [LANTus] (100 UNITS/ML) SYG SC SCH (20:09)
[2018-07-08] MEDS ORDERED: morphine LIQ (10 MG/5 ML) CUP PO PRN (22:00)
[2018-07-09] VITALS (12 sets, daily range): BP systolic 127–165; BP diastolic 59–91; PULSE 61–81; RESP 18–22
[2018-07-09] MEDS: ACCU-CHEK XX SCH (02:00)
[2018-07-09] MEDS: LABETALOL HCL 20MG INJ IV PRN (04:19)
--- NOTE | 2018-07-09 04:29 | NUR ---
Midnight BP was elevated but not enough to give the prn BP meds. 4am SBP was more than 160. Given Labetalol. Will recheck BP in an hour. NO bleeding noted.NO bradycardic episode noted
[2018-07-09] MEDS: HEPARIN 5,000 UNIT/1 ML VIAL SC SCH ×3 (05:05→22:33)
--- NOTE | 2018-07-09 06:14 | NUR ---
Pt sleeping comfortably. BP improved after given Labetalol. Bed alarm on.
[2018-07-09] MEDS: INSULIN ASPART [NOVOLOG] 3 ML PEN SC SCH ×7 (07:51→20:40)
--- NOTE | 2018-07-09 08:09 | CONS ---
Consult Date/Type/Reason Admit Date/Time Jul 06, 2018 at 12:07 Initial Consult Date 07/06/18 Type of Consultation: cv Requesting Provider: SOCT MCKEON Date/Time of Note DATE: 07/09/18 TIME: 08:06 Subjective Interventional cardiology follow-up progress note Subjective: Discussed with the staff and tele was reviewed. Discussed with the physicians. Telemetry was reviewed patient remains in normal sinus rhythm/ sinus wood with no more episodes of 2-1 AV block over night Patient with no chest pain or pressure now but has shortness of breath has just minimal chest discomfort last night again No bleeding is reported Objective: General: Obese gentleman no acute distress HEENT: NC/AT. pupils are equal. round. NECK: no stridor. CV: RRR. systolic murmur; no gallop or rubs. PULM: no wheezing . Mild rhonchi . GI: SOFT, NT, ND, no rebound or guarding Extremity: trace B/L LE edema. no clubbing. neuro: awake and alert, OX3. Psych: calm and pleasant rectal: deferred : normal EKG shows normal sinus rhythm. ST-T wave abnormalities suggestive of inferolateral ischemia Echocardiogram was reviewed which showed ejection fraction of 45% Chest x-ray shows: Mild cardiomegaly with pulmonary vascular congestion. Slightly more focal right lower lobe infiltrate. Objective Vitals Vital Signs Date Temp Pulse Resp B/P (MAP) Pulse Ox O2 O2 Flow FiO2 Time Delivery Rate 07/09/18 79 08:05 07/09/18 98.1 22 163/81 93 Room Air 07:23 (108) 07/08/18 2.0 20:15 Intake and Output 07/08/18 07/08/18 07/09/18 1515:00 23:00 07:00 IntakeIntake Total 45 ml 800 ml 920 ml OutputOutput Total 600 ml 1200 ml BalanceBalance 45 ml 200 ml -280 ml Results/Medications Result Diagram: 07/09/18 0455 07/09/18 0455 Results 24 hrs Laboratory Tests Test 07/08/18 11:59 07/08/18 17:10 07/08/18 20:02 07/09/18 02:56 Bedside Glucose 160 154 143 152 Test 07/09/18 04:55 07/09/18 07:51 White Blood Count 7.6 Red Blood Count 3.29 L Hemoglobin 9.4 L Hematocrit 29.1 L Mean Corpuscular 88.4 Volume Mean Corpuscular 28.6 L Hemoglobin Mean Corpuscular 32.3 Hemoglobin Concent Red Cell 13.8 Distribution Width Platelet Count 214 Mean Platelet Volume 10.9 H Immature 0.400 Granulocytes % Neutrophils % 61.8 Lymphocytes % 27.5 Monocytes % 7.3 Eosinophils % 2.5 Basophils % 0.5 Nucleated Red Blood 0.0 Cells % Immature 0.030 Granulocytes # Neutrophils # 4.7 Lymphocytes # 2.1 Monocytes # 0.6 Eosinophils # 0.2 Basophils # 0.0 Nucleated Red Blood 0.0 Cells # Sodium Level 143 Potassium Level 4.1 Chloride Level 115 H Carbon Dioxide Level 23 Anion Gap 5 Blood Urea Nitrogen 38 H Creatinine 3.02 H Est Glomerular 21 L Filtrat Rate mL/min Glucose Level 137 Calcium Level 8.3 L Phosphorus Level 4.6 Magnesium Level 1.8 Bedside Glucose 135 Home Meds Active Scripts Carvedilol* (Carvedilol*) 6.25 Mg Tablet, 6.25 MG PO BID for 60 Days, #120 TAB Prov:BHARATH KING MD 04/13/17 Ticagrelor* (Brilinta*) 90 Mg Tablet, 90 MG PO BID for 60 Days, #120 TAB Prov:BHARATH KING MD 04/13/17 Reported Medications Gemfibrozil* (Gemfibrozil*) 600 Mg Tablet, 600 MG PO BID, TAB 04/05/17 [place]-3 Acid Ethyl Esters (Lovaza) 1 Gm Capsule, 1 GM PO BID, CAP 04/05/17 Insulin Glargine* (Lantus*) 100 Unit/Ml Soln, 30 UNIT SC DAILY, #1 VIAL 04/05/17 Aspirin (Low Dose Aspirin) 81 Mg Tablet.dr, 81 MG PO DAILY, #30 TAB 04/05/17 Atorvastatin Calcium* (Atorvastatin Calcium*) 20 Mg Tablet, 20 MG PO QHS, #30 TAB 04/05/17 Amlodipine Besylate* (Amlodipine Besylate*) 10 Mg Tablet, 10 MG PO DAILY, #30 TAB 04/05/17 Discontinued Reported Medications Metformin Hcl* (Metformin Hcl*) 1,000 Mg Tablet, 1000 MG PO WITH BREAKFAST DINNE, #30 TAB 04/05/17 Medications Current Medications IV Flush (NS 3 ml) 3 ml PER PROTOCOL IV ; Start 07/06/18 at 13:00 Ondansetron HCl (Zofran Inj) 4 mg Q6H PRN IV NAUSEA/VOMITING; Start 07/06/18 at 13:00 Aspirin (Aspirin) 81 mg DAILY PO Last administered on 07/08/18at 08:03; Admin Dose 81 MG; Start 07/07/18 at 09:00 Nitroglycerin (Nitroglycerin (Sl Tab) 0.4 Mg) 1 tab Q5M PRN SL .CHEST PAIN; Start 07/06/18 at 13:00 Acetaminophen (Tylenol Tab) 650 mg Q6H PRN PO .PAIN 1-3 OR TEMP; Start 07/06/18 at 13:00 Acetaminophen/ Hydrocodone Bitart ([place] (5/325)) 1 tab Q6H PRN PO .PAIN 4-6; Start 07/06/18 at 13:00 Famotidine (Pepcid) 20 mg DAILY PO Last administered on 07/08/18at 08:03; Admin Dose 20 MG; Start 07/06/18 at 14:00 Diagnostic Test (Pha) (Accu-Chek) 1 ea 02 XX ; Start 07/07/18 at 02:00 Insulin Glargine (Lantus) 19 units DAILY@2000 SC Last administered on 07/08/18at 20:09; Admin Dose 19 UNITS; Start 07/06/18 at 20:00 Insulin Aspart (Novolog Insulin Pen) 5 unit WITH MEALS SC Last administered on 07/09/18at 07:58; Admin Dose 5 UNIT; Start 07/06/18 at 18:00 Insulin Aspart (Novolog Insulin Pen) NOVOLOG *MILD* ALGORITHM WITH MEALS BEDTIME SC Last administered on 07/08/18at 17:14; Admin Dose 1 UNIT; Start 07/06/18 at 18:00 Miscellaneous Information 1 ea NOTE XX ; Start 07/06/18 at 14:30 Glucose (Glutose) 15 gm Q15M PRN PO DECREASED GLUCOSE; Start 07/06/18 at 14:30 Glucose (Glutose) 22.5 gm Q15M PRN PO DECREASED GLUCOSE; Start 07/06/18 at 14:30 Dextrose (D50w Syringe) 25 ml Q15M PRN IV DECREASED GLUCOSE; Start 07/06/18 at 14:30 Dextrose (D50w Syringe) 50 ml Q15M PRN IV DECREASED GLUCOSE; Start 07/06/18 at 14:30 Glucagon (Glucagen) 1 mg Q15M PRN IM DECREASED GLUCOSE; Start 07/06/18 at 14:30 Glucose (Glutose) 15 gm Q15M PRN BUCCAL DECREASED GLUCOSE; Start 07/06/18 at 14:30 Labetalol HCl (Labetalol) 10 mg Q4 PRN IV sbp >160 Last administered on 07/09/18at 04:19; Admin Dose 10 MG; Start 07/06/18 at 15:00 Atorvastatin Calcium (Lipitor) 80 mg HS PO Last administered on 07/08/18at 20:07; Admin Dose 80 MG; Start 07/06/18 at 21:00 Isosorbide Dinitrate (Isordil) 20 mg TID PO Last administered on 07/08/18at 20:13; Admin Dose 20 MG; Start 07/06/18 at 21:00 Acetylcysteine (Nac) 600 mg BID PO Last administered on 07/08/18at 20:06; Admin Dose 600 MG; Start 07/06/18 at 21:00 Carvedilol (Coreg) 3.125 mg BID PO ; Start 07/08/18 at 09:00 Hydralazine HCl (Apresoline) 50 mg TID PO Last administered on 07/08/18at 20:07; Admin Dose 50 MG; Start 07/08/18 at 09:00 Heparin Sodium (Porcine) (Heparin (5000 Units/1ml)) 5,000 unit Q8 SC Last administered on 07/09/18at 05:05; Admin Dose 5,000 UNIT; Start 07/08/18 at 14:00 Amlodipine Besylate (Norvasc) 5 mg DAILY PO ; Start 07/09/18 at 09:00 Morphine Sulfate (morphine) 6 mg Q4H PRN PO SEVERE PAIN LEVEL 7-10; Start 07/08/18 at 22:00 Assessment/Plan Hospital Course (Demo Recall) 1. Non-ST elevation myocardial infarction 2. Coronary artery disease with history of previous MIs 3. History of PCI 4. Hypertension 5. Diabetes 6. Congestive heart failure class IV on arrival 7. Dyslipidemia 8. Active smoker and possibly COPD 9. Renal failure acute on chronic 10. Episode of 2-1 AV block so far asymptomatic Recommendations: Aspirin will be continued Low-dose carvedilol to 3.125 p.o. twice daily and continue hydralazine to his regimen. Nitroglycerin to be continued as well statin will be resumed Off of any SAMANTHA inhibitor or ARB due to his renal insufficiency Medical optimization of renal optimization will be continued. Patient has already been evaluated by renal Mucomyst will be added as well Different options discussed with the patient and the family. Plan for left heart catheter and coronary angiogram possible PCI tomorrow morning Risks benefits and alternatives of procedure discussed with the patient and family in detail. Risks including but not limited to risk of infection vascular congestion bleeding complication [place] stroke arrhythmia renal failure etc. discussed with them in detail. Very high risk of renal failure given his baseline abnormality was discussed with the patient and the family. Consent has been obtained Thank you for his referral. 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
[2018-07-09] MEDS: ASPIRIN 81 MG TAB PO SCH (08:37)
[2018-07-09] MEDS: ACETYLCYSTEINE 600 MG CAP PO SCH ×2 (08:37→20:29)
[2018-07-09] MEDS: FAMOTIDINE 20 MG TAB PO SCH (08:37)
[2018-07-09] MEDS: ISOSORBIDE DINITRATE 20 MG TAB PO SCH ×3 (08:38→20:30)
--- NOTE | 2018-07-09 08:55 | PN ---
DATE: 07/09/2018 SUBJECTIVE: The patient remains stable. No episodes of bradycardia overnight. OBJECTIVE: VITAL SIGNS: Blood pressure is 163/81, respirations 22, pulse 61, temperature 98.1. HEENT: Head is normocephalic. NECK: Supple. HEART: Regular rate. LUNGS: Show diminished breath sounds at the base. ABDOMEN: Soft, nontender to palpation without rebound or guarding. EXTREMITIES: Negative for clubbing, cyanosis, no edema. DERMATOLOGIC: No rashes. MUSCULOSKELETAL: No joint effusion. NEUROLOGIC: No change in exam. MEDICATIONS: Reviewed. LABORATORY DATA: White count 7.6, hemoglobin 9.4, platelet count is 214. Sodium 143, potassium 4.1, bicarbonate 115, BUN 38, creatinine 3.02. ASSESSMENT AND PLAN: 1. Nonoliguric acute kidney injury on top of chronic kidney disease with previous baseline creatinin e of 2.2 mg/dL. Currently baseline creatinine is unknown. Etiology of current acute kidney injury m ay be secondary to hemodynamics. Other possibilities include progression of chronic kidney disease. The patient does have nephrotic range proteinuria, likely due to diabetic nephropathy. However, ful l serological workup will be performed. At this point, continue current treatment plans, supportive care, renally dose all medicines. 2. Chronic kidney disease with nephrotic range proteinuria, likely due to diabetic nephropathy. The patient's creatinine has been fluctuating, but overall stable. The patient does have a primary neph rologist, which she will follow up in outpatient setting. We would continue current medical manageme nt at this time. Continue disease factor modification. We will consider serological workup as the p atient is to remain in house. 3. Diabetes. Continue current diabetic regimen. 4. Anemia. Continue to monitor hemoglobin and hematocrit levels. 5. Mineral bone disorder. Monitor calcium and phosphorus levels. 6. Hypertension. Continue current blood pressure regimen. Hold SAMANTHA inhibitor at this time. 7. Non-St elevation myocardial infarction. Continue medical management. Cardiac catheterization is being held in the setting of possible acute kidney injury. Continue to monitor closely. Dictated By: GRAEME BRANDT DO NR/NTS Conf#: [id number] DID#: [id number] CC: SCOT MCKEON MD; JEANNIE FREITAS MD;*EndCC*
[2018-07-09] MEDS ORDERED: AMLODIPINE 5 MG TAB PO SCH (09:00)
[2018-07-09] MEDS: AMLODIPINE 10 MG TAB PO SCH (10:51)
--- NOTE | 2018-07-09 11:58 | PN ---
Date/Time of Note Date/Time of Note DATE: 07/09/18 TIME: 11:58 Objective Vitals Vital Signs Date Temp Pulse Resp B/P (MAP) Pulse Ox O2 O2 Flow FiO2 Time Delivery Rate 07/09/18 98.4 72 20 135/64 95 Room Air 11:11 (87) 07/09/18 2.0 08:00 Intake and Output 07/08/18 07/08/18 07/09/18 1515:00 23:00 07:00 IntakeIntake Total 45 ml 800 ml 920 ml OutputOutput Total 600 ml 1200 ml BalanceBalance 45 ml 200 ml -280 ml Results Result Diagram: 07/09/18 0455 07/09/18 0455 Medications Medications Current Medications IV Flush (NS 3 ml) 3 ml PER PROTOCOL IV ; Start 07/06/18 at 13:00 Ondansetron HCl (Zofran Inj) 4 mg Q6H PRN IV NAUSEA/VOMITING; Start 07/06/18 at 13:00 Aspirin (Aspirin) 81 mg DAILY PO Last administered on 07/09/18at 08:37; Admin Dose 81 MG; Start 07/07/18 at 09:00 Nitroglycerin (Nitroglycerin (Sl Tab) 0.4 Mg) 1 tab Q5M PRN SL .CHEST PAIN; Start 07/06/18 at 13:00 Acetaminophen (Tylenol Tab) 650 mg Q6H PRN PO .PAIN 1-3 OR TEMP; Start 07/06/18 at 13:00 Acetaminophen/ Hydrocodone Bitart ([place] (5/325)) 1 tab Q6H PRN PO .PAIN 4-6; Start 07/06/18 at 13:00 Famotidine (Pepcid) 20 mg DAILY PO Last administered on 07/09/18at 08:37; Admin Dose 20 MG; Start 07/06/18 at 14:00 Diagnostic Test (Pha) (Accu-Chek) 1 ea 02 XX ; Start 07/07/18 at 02:00 Insulin Glargine (Lantus) 19 units DAILY@2000 SC Last administered on 07/08/18at 20:09; Admin Dose 19 UNITS; Start 07/06/18 at 20:00 Insulin Aspart (Novolog Insulin Pen) 5 unit WITH MEALS SC Last administered on 07/09/18at 07:58; Admin Dose 5 UNIT; Start 07/06/18 at 18:00 Insulin Aspart (Novolog Insulin Pen) NOVOLOG *MILD* ALGORITHM WITH MEALS BEDTIME SC Last administered on 07/08/18at 17:14; Admin Dose 1 UNIT; Start 07/06/18 at 18:00 Miscellaneous Information 1 ea NOTE XX ; Start 07/06/18 at 14:30 Glucose (Glutose) 15 gm Q15M PRN PO DECREASED GLUCOSE; Start 07/06/18 at 14:30 Glucose (Glutose) 22.5 gm Q15M PRN PO DECREASED GLUCOSE; Start 07/06/18 at 14:30 Dextrose (D50w Syringe) 25 ml Q15M PRN IV DECREASED GLUCOSE; Start 07/06/18 at 14:30 Dextrose (D50w Syringe) 50 ml Q15M PRN IV DECREASED GLUCOSE; Start 07/06/18 at 14:30 Glucagon (Glucagen) 1 mg Q15M PRN IM DECREASED GLUCOSE; Start 07/06/18 at 14:30 Glucose (Glutose) 15 gm Q15M PRN BUCCAL DECREASED GLUCOSE; Start 07/06/18 at 14:30 Labetalol HCl (Labetalol) 10 mg Q4 PRN IV sbp >160 Last administered on 07/09/18at 04:19; Admin Dose 10 MG; Start 07/06/18 at 15:00 Atorvastatin Calcium (Lipitor) 80 mg HS PO Last administered on 07/08/18at 20:07; Admin Dose 80 MG; Start 07/06/18 at 21:00 Isosorbide Dinitrate (Isordil) 20 mg TID PO Last administered on 07/09/18at 08:38; Admin Dose 20 MG; Start 07/06/18 at 21:00 Carvedilol (Coreg) 3.125 mg BID PO Last administered on 07/09/18at 08:38; Admin Dose 3.125 MG; Start 07/08/18 at 09:00 Hydralazine HCl (Apresoline) 50 mg TID PO Last administered on 07/09/18at 08:39; Admin Dose 50 MG; Start 07/08/18 at 09:00 Heparin Sodium (Porcine) (Heparin (5000 Units/1ml)) 5,000 unit Q8 SC Last administered on 07/09/18at 05:05; Admin Dose 5,000 UNIT; Start 07/08/18 at 14:00 Morphine Sulfate (morphine) 6 mg Q4H PRN PO SEVERE PAIN LEVEL 7-10; Start 07/08/18 at 22:00 Acetylcysteine (Nac) 600 mg BID PO Last administered on 07/09/18at 08:37; Admin Dose 600 MG; Start 07/09/18 at 09:00 Amlodipine Besylate (Norvasc) 10 mg DAILY PO Last administered on 07/09/18at 10:51; Admin Dose 10 MG; Start 07/09/18 at 09:00 VTE Prophylaxis Risk score (from Ns)>0 risk: 5 [place] [facility] [place] Lines/Catheters IV Catheter Type: Spence in Place: No Assessment/Plan Hospital Course subjective No chest pain, no acute complaints Objective Physical exam General: Patient is laying in bed and answers questions appropriately Mentation: Patient is alert and oriented 4, Head: Normocephalic atraumatic Eyes: EOMI, pupils reactive to light Neck: Supple, nontender, midline Respiratory: Clear to auscultation bilaterally Cardiovascular: regular rate, no obvious murmurs Gastrointestinal: non-tender to palpation, bowel sounds heard. Neurological: Moves all extremities spontaneously Skin: No new skin lesions Assessment and plan Non-ST elevated IA -Cardiology consulted, Dr. Benedict -Troponin elevated, stabilized -Patient given Lovenox in the ED, however due to patient's poor renal function will start heparin drip at next scheduled dose instead of Lovenox -EKG noted -Echocardiogram -Patient does take cardiac medications at home, however are different than what we have reconciled here in the computer, for instance patient does not take Brilinta, instructed patient's to bring home medications. Patient states that he believes he is taking a baby aspirin, nitrate, Coreg, amlodipine. Will defer to cardiology for medications for now until patient's home medications are brought in Acute kidney injury on CKD -Nephrology consulted -Mild increase of baseline -Mild hydration for now Anemia -Patient does have mild anemia however other abnormalities are likely due to lab error as patient's hemoglobin has now stabilized, monitor Diabetes mellitus -Insulin while in house Hypertension -Continue home meds when able Disposition -Cardiac cath when renal function improves SCOT MCKEON Jul 09, 2018 11:58
[2018-07-09] MEDS: ATORVASTATIN 80 MG TAB PO SCH (20:29)
[2018-07-09] MEDS: INSULIN GLARGINE [LANTus] (100 UNITS/ML) SYG SC SCH (20:40)
[2018-07-10] VITALS (58 sets, daily range): BP systolic 101–181; BP diastolic 53–116; PULSE 32–90; RESP 11–27
[2018-07-10] MEDS: ACCU-CHEK XX SCH (02:00)
--- NOTE | 2018-07-10 05:44 | NUR ---
PT REMAINS IN STABLE CONDITION OVERNIGHT. NO SIGN OF ACUTE DISTRESS. DENIES ANY CHEST PAIN. NOTHING BY MOUTH POST MIDNIGHT IMPLEMENTED, SINCE PT IS SCHEDULE FOR LEFT HEART CATH, POSSIBLY PCI TODAY. ALL NEEDS MET AND ATTENDED TO. WILL ENDORSE TO DAY SHIFT FOR CONTINUITY OF CARE.
[2018-07-10] MEDS: HEPARIN 5,000 UNIT/1 ML VIAL SC SCH (06:00)
[2018-07-10] MEDS: ASPIRIN 81 MG TAB PO SCH (06:59)
[2018-07-10] MEDS ORDERED: HEPARIN 1000 UNITS/ML 10 ML INJ ONE (07:27)
[2018-07-10] MEDS ORDERED: MIDAZOLAM 1 MG/ML 2 ML INJ ONE (07:27)
[2018-07-10] MEDS ORDERED: LIDOCAINE 1% (MDV) 20 ML INJ ONE (07:27)
[2018-07-10] MEDS ORDERED: IODIXANOL LOCM 100 ML BTL ONE (07:27)
[2018-07-10] MEDS ORDERED: FENTAnyl 50 MCG/ML VIAL ONE (07:28)
[2018-07-10] MEDS ORDERED: SOD CHLORIDE 0.9% 500 ML ONE (07:28)
[2018-07-10] MEDS ORDERED: VERAPAMIL 5 MG INJ ONE (07:28)
[2018-07-10] MEDS ORDERED: NITROGLYCERIN (IC) 100 MCG/ML INJ ONE ×2 (07:28→08:41)
--- NOTE | 2018-07-10 07:42 | CONS ---
Consult Date/Type/Reason Admit Date/Time Jul 06, 2018 at 12:07 Initial Consult Date 07/06/18 Type of Consultation: cv Requesting Provider: SCOT MCKEON Date/Time of Note DATE: 07/10/18 TIME: 07:41 Subjective Interventional cardiology follow-up progress note Subjective: Discussed with the staff and tele was reviewed. Discussed with the physicians. Telemetry was reviewed patient remains in normal sinus rhythm/ sinus wood Patient with no chest pain or pressure now No bleeding is reported Objective: General: Obese gentleman no acute distress HEENT: NC/AT. pupils are equal. round. NECK: no stridor. CV: RRR. systolic murmur; no gallop or rubs. PULM: no wheezing . Mild rhonchi . GI: SOFT, NT, ND, no rebound or guarding Extremity: trace B/L LE edema. no clubbing. neuro: awake and alert, OX3. Psych: calm and pleasant rectal: deferred : normal EKG shows normal sinus rhythm. ST-T wave abnormalities suggestive of inferolateral ischemia Echocardiogram was reviewed which showed ejection fraction of 45% Chest x-ray shows: Mild cardiomegaly with pulmonary vascular congestion. Slightly more focal right lower lobe infiltrate. Objective Vitals Vital Signs Date Temp Pulse Resp B/P (MAP) Pulse Ox O2 O2 Flow FiO2 Time Delivery Rate 07/10/18 98.4 75 18 141/67 97 Nasal 07:15 (91) Cannula 07/09/18 2.0 20:00 Intake and Output 07/09/18 07/09/18 07/10/18 1515:00 23:00 07:00 IntakeIntake Total 360 ml 640 ml 700 ml OutputOutput Total 1000 ml 650 ml BalanceBalance 360 ml -360 ml 50 ml Results/Medications Result Diagram: 07/10/18 0544 07/10/18 0544 Results 24 hrs Laboratory Tests Test 07/09/18 07:51 07/09/18 08:28 07/09/18 08:51 07/09/18 12:00 Bedside Glucose 135 133 Rheumatoid Factor NEGATIVE Screen Complement C3 136 Complement C4 38 Hepatitis B Surface NEGATIVE Antigen Hepatitis B Core NEGATIVE Total Antibody Hepatitis C NEGATIVE Antibody Hepatitis A IgM NON-REACTIVE Antibody Test 07/09/18 17:52 07/09/18 20:28 07/10/18 05:44 Bedside Glucose 193 108 White Blood Count 8.4 Red Blood Count 3.48 L Hemoglobin 9.9 L Hematocrit 30.9 L Mean Corpuscular 88.8 Volume Mean Corpuscular 28.4 L Hemoglobin Mean Corpuscular 32.0 Hemoglobin Concent Red Cell 14.3 Distribution Width Platelet Count 222 Mean Platelet 12.1 H Volume Immature 0.500 H Granulocytes % Neutrophils % 64.4 Lymphocytes % 24.1 Monocytes % 8.1 Eosinophils % 2.4 Basophils % 0.5 Nucleated Red Blood 0.0 Cells % Immature 0.040 H Granulocytes # Neutrophils # 5.4 Lymphocytes # 2.0 Monocytes # 0.7 Eosinophils # 0.2 Basophils # 0.0 Nucleated Red Blood 0.0 Cells # Prothrombin Time 12.3 Prothrombin Time 1.0 Ratio INR International 0.90 Normalized Ratio Sodium Level 142 Potassium Level 4.2 Chloride Level 116 H Carbon Dioxide 22 Level Anion Gap 4 L Blood Urea Nitrogen 36 H Creatinine 2.92 H Est Glomerular 22 L Filtrat Rate mL/min Glucose Level 128 Calcium Level 8.6 Magnesium Level 1.8 Total Bilirubin 0.1 L Direct Bilirubin 0.00 Indirect Bilirubin 0.1 Aspartate Amino 26 Transf (AST/SGOT) Alanine 31 Aminotransferase (A LT/SGPT) Alkaline 72 Phosphatase Creatine Kinase 197 Creatine Kinase 0.8 Index Creatinine Kinase 1.55 MB (Mass) Troponin I 0.537 *H Total Protein 5.4 L Albumin 2.7 L Globulin 2.70 Albumin/Globulin 1.00 Ratio Home Meds Active Scripts Carvedilol* (Carvedilol*) 6.25 Mg Tablet, 6.25 MG PO BID for 60 Days, #120 TAB Prov:BHARATH KING MD 04/13/17 Reported Medications Insulin Glargine* (Lantus*) 100 Unit/Ml Soln, 30 UNIT SC DAILY, #1 VIAL 04/05/17 Aspirin (Low Dose Aspirin) 81 Mg Tablet.dr, 81 MG PO DAILY, #30 TAB 04/05/17 Atorvastatin Calcium* (Atorvastatin Calcium*) 20 Mg Tablet, 20 MG PO QHS, #30 TAB 04/05/17 Amlodipine Besylate* (Amlodipine Besylate*) 10 Mg Tablet, 10 MG PO DAILY, #30 TAB 04/05/17 Discontinued Reported Medications Metformin Hcl* (Metformin Hcl*) 1,000 Mg Tablet, 1000 MG PO WITH BREAKFAST DINNE, #30 TAB 04/05/17 Medications Current Medications IV Flush (NS 3 ml) 3 ml PER PROTOCOL IV ; Start 07/06/18 at 13:00 Ondansetron HCl (Zofran Inj) 4 mg Q6H PRN IV NAUSEA/VOMITING; Start 07/06/18 at 13:00 Aspirin (Aspirin) 81 mg DAILY PO Last administered on 07/10/18at 06:59; Admin Dose 81 MG; Start 07/07/18 at 09:00 Nitroglycerin (Nitroglycerin (Sl Tab) 0.4 Mg) 1 tab Q5M PRN SL .CHEST PAIN; Start 07/06/18 at 13:00 Acetaminophen (Tylenol Tab) 650 mg Q6H PRN PO .PAIN 1-3 OR TEMP; Start 07/06/18 at 13:00 Acetaminophen/ Hydrocodone Bitart ([place] (5/325)) 1 tab Q6H PRN PO .PAIN 4-6; Start 07/06/18 at 13:00 Famotidine (Pepcid) 20 mg DAILY PO Last administered on 07/09/18at 08:37; Admin Dose 20 MG; Start 07/06/18 at 14:00 Diagnostic Test (Pha) (Accu-Chek) 1 ea 02 XX ; Start 07/07/18 at 02:00 Insulin Glargine (Lantus) 19 units DAILY@2000 SC Last administered on 07/09/18at 20:40; Admin Dose 19 UNITS; Start 07/06/18 at 20:00 Insulin Aspart (Novolog Insulin Pen) 5 unit WITH MEALS SC Last administered on 07/09/18at 18:05; Admin Dose 5 UNIT; Start 07/06/18 at 18:00 Insulin Aspart (Novolog Insulin Pen) NOVOLOG *MILD* ALGORITHM WITH MEALS BEDTIME SC Last administered on 07/09/18at 18:01; Admin Dose 2 UNIT; Start 07/06/18 at 18:00 Miscellaneous Information 1 ea NOTE XX ; Start 07/06/18 at 14:30 Glucose (Glutose) 15 gm Q15M PRN PO DECREASED GLUCOSE; Start 07/06/18 at 14:30 Glucose (Glutose) 22.5 gm Q15M PRN PO DECREASED GLUCOSE; Start 07/06/18 at 14:30 Dextrose (D50w Syringe) 25 ml Q15M PRN IV DECREASED GLUCOSE; Start 07/06/18 at 14:30 Dextrose (D50w Syringe) 50 ml Q15M PRN IV DECREASED GLUCOSE; Start 07/06/18 at 14:30 Glucagon (Glucagen) 1 mg Q15M PRN IM DECREASED GLUCOSE; Start 07/06/18 at 14:30 Glucose (Glutose) 15 gm Q15M PRN BUCCAL DECREASED GLUCOSE; Start 07/06/18 at 14:30 Labetalol HCl (Labetalol) 10 mg Q4 PRN IV sbp >160 Last administered on 07/09/18at 04:19; Admin Dose 10 MG; Start 07/06/18 at 15:00 Atorvastatin Calcium (Lipitor) 80 mg HS PO Last administered on 07/09/18 20:29; Admin Dose 80 MG; Start 07/06/18 at 21:00 Isosorbide Dinitrate (Isordil) 20 mg TID PO Last administered on 07/09/18at 20:30; Admin Dose 20 MG; Start 07/06/18 at 21:00 Carvedilol (Coreg) 3.125 mg BID PO Last administered on 07/09/18 20:30; Admin Dose 3.125 MG; Start 07/08/18 at 09:00 Hydralazine HCl (Apresoline) 50 mg TID PO Last administered on 07/09/18 20:30; Admin Dose 50 MG; Start 07/08/18 at 09:00 Heparin Sodium (Porcine) (Heparin (5000 Units/1ml)) 5,000 unit Q8 SC Last administered on 07/09/18at 22:33; Admin Dose 5,000 UNIT; Start 07/08/18 at 14:00 Morphine Sulfate (morphine) 6 mg Q4H PRN PO SEVERE PAIN LEVEL 7-10; Start 07/08/18 at 22:00 Acetylcysteine (Nac) 600 mg BID PO Last administered on 07/09/18at 20:29; Admin Dose 600 MG; Start 07/09/18 at 09:00 Amlodipine Besylate (Norvasc) 10 mg DAILY PO Last administered on 07/09/18at 10:51; Admin Dose 10 MG; Start 07/09/18 at 09:00 Assessment/Plan Hospital Course (Demo Recall) 1. Non-ST elevation myocardial infarction 2. Coronary artery disease with history of previous MIs 3. History of PCI 4. Hypertension 5. Diabetes 6. Congestive heart failure class IV on arrival 7. Dyslipidemia 8. Active smoker and possibly COPD 9. Renal failure acute on chronic 10. Episode of 2-1 AV block so far asymptomatic Recommendations: Aspirin will be continued Low-dose carvedilol to 3.125 p.o. twice daily and continue hydralazine to his regimen. Nitroglycerin to be continued as well statin will be resumed Off of any SAMANTHA inhibitor or ARB due to his renal insufficiency Medical optimization of renal optimization will be continued. Patient has a lready been evaluated by renal Mucomyst will be added as well Different options discussed with the patient and the family. Plan for left heart catheter and coronary angiogram possible PCI this morning Risks benefits and alternatives of procedure discussed with the patient and family in detail. Risks including but not limited to risk of infection vascular congestion bleeding complication SD stroke arrhythmia renal failure etc. discussed with them in detail. Very high risk of renal failure given his baseline abnormality was discussed with the patient and the family. Consent has been obtained Thank you for his referral. We will continue to follow along with you, until patient is discharged and to follow-up with his regular brick yard hand Dr.Fakheri JEANNIE FREITAS MD [facility] JEANNIE FREITAS MD Jul 10, 2018 07:42
[2018-07-10] MEDS: INSULIN ASPART [NOVOLOG] 3 ML PEN SC SCH ×5 (08:00→20:22)
[2018-07-10] MEDS ORDERED: TICAGRELOR 90 MG TABLET ONE (08:06)
[2018-07-10] MEDS ORDERED: BIVALIRUDIN 250MG /NS 50 ML 100 ML IVPB ONE (08:06)
[2018-07-10] MEDS: TICAGRELOR 90 MG TABLET PO SCH ×2 (09:00→20:24)
--- NOTE | 2018-07-10 09:03 | OPR ---
Date/Time of Note Date/Time of Note DATE: 07/10/18 TIME: 08:54 Operative Report Procedure Date: Jul 10, 2018 Preoperative Diagnosis NSTEMI Postoperative Diagnosis NSTEMI Operation/Procedure Performed PCI RCA Surgeon see signature line Scuba Instructor Sagar Anesthesia Type: moderate sedation Estimated Blood Loss: minimal Transfusion none Specimen none Grafts/Implants none Complications none Procedure Description Tube Washer: Jeannie Benedict MD Indication: NSTEMI 62-year-old gentleman with multiple complex medical history including coronary artery disease PCI of his LAD and left cecum and the other 2017 renal insufficiency diabetes hypertension who was admitted with recurrent chest pain and non-ST elevation myocardial infarction. Patient with creatinine above 3 despite optimal medical therapy did not improve and because of recurrent chest pain he was going to undergo diagnostic angiography. Patient previously was known and evaluated by CT surgery and felt to be a nonsurgical candidate prior to his previous PCI's Procure performed: #1 left heart catheterization and selective right and left coronary angiogram #2 Right femoral angiogram 3. Complex but successful PTCA and stenting of right coronary artery using a 2.5 x 32 mm Synergy drug-eluting stent in the distal RCA, 2.75 x 38 mm Synergy drug-eluting stent in the mid RCA and a 3 x 38 mm Synergy drug-eluting stent of the proximal RCA. 4. Moderate sedation for more than 90 minutes Findings: 1. Left main: is normal and birfurcates to LAD & LCX. 2. LAD: Is a small has 20 % stenosis at proximal LAD, and 40 % stenosis at mid LAD right after the previous stent. Diagonal is a very small vessel and is jailed and has 99% ostial stenosis. 3. Left circumflex artery: is nondominant. it has 95-99% stenosis at the distal portion of the previous stent 4. RCA: is dominant. it has multiple high-grade lesions. Proximally has about 60% stenosis. Mid level has about 80% stenosis. Distally has multiple areas of a stenosis of up to 99%. After successful PCI of this lesion no significant residual stenosis left. Initial flow was BRYCE I flow in the posterolateral artery. After successful PCI the BRYCE-3 flow was restored 5. LV: 189/36 aortic pressure by pull back: 169/71 Procedure in detail: Written informed consent with obtained after risks benefits and alternatives discussed with the patient in detail. risks including but not limited to risk of infection vascular complications, bleeding complications, LA stroke arrhythmia renal failure at even were discussed with the patient in detail. Patient was brought into the cardiac poultry hatchery laborer and placed in supine position. Right and left groin area was prepped and draped in regular sterile fashion and then he was in anesthetized using 1% lidocaine. Right femoral artery was cannulated and using modified seldinger technique a 6 Welsh sheath was placed in the femoral artery. Femoral angiogram was performed JL4 guiding catheter was advanced to engage the left main coronary artery angiographic view was obtained. Then a JR4 guiding catheter was advanced to engage the left ventricle hemodynamics as recorded by pullback aortic pressure was measured. JR4 guiding catheter was advanced and engaged into the right coronary artery and angiographic view was obtained. At this time we decided to perform PCI of the right coronary artery. . BMW wire was used and advanced across the lesion and placed distal to the lesion. I used a 2.5 x 15 mm balloon which was placed across the lesion and predilated the vessel. Then I used a 2.5 x 32 mm Synergy drug-eluting stent which was placed across the distal RCA lesion and deployed at 12 Sandra. Then a 2.75 x 38 mm Synergy drug-eluting stent was placed across the mid lesion deployed at 14 asndra. Then a 3 x 38 mm Synergy drug-eluting stent was placed across the proximal lesion and deployed it at 14 sandra. The stents were overlapping. Finally a 3 x 15 followed by a 3.5 x 12 mm noncompliant balloon was used to post dilate the vessel. Final angiographic view was obtained which showed BRYCE-3 flow no evidence of dissection and no significant residual stenosis at the site of the stent. Patient tolerated the procedure well with no complication. Patient was transferred to ICU in stable condition. contrast used: 55 cc Visipaque Conclusions: Successful PTCA stenting of the proximal, mid, distal right coronary artery from up to 99% stenosis to no significant residual stenosis using a 3 drug-eluting stents . Recommendations: Aggressive medical therapy. aspirin indefinitely dual antiplatlet therapy with aspirin and Brilinta Stage PCI of the left circumflex artery once renal function stabilizes JEANNIE BENEDICT MD [facility] JEANNIE BENEDICT MD Jul 10, 2018 09:03
[2018-07-10] MEDS: SOD CHLORIDE 0.9% 1,000 ML IV SCH ×2 (09:25→09:32)
--- NOTE | 2018-07-10 09:49 | NUR ---
PACU NOTES: PATIENT AWAKE AND ALERT. ON ROOM AIR 95%. RECEIVED FROM CELESTINARN BOTTOM CEMENTER, WITH RIGHT GROIN SHEATH NOT CONNECTED TO TRANSDUCER PER BOTTOM CEMENTER NO NEED TO CONNECT FOR THEY WILL BE PULLING SHEATH @ 1100 EITHER IN ICU ONCE WE HAVE A ROOM OR HERE IN PACU. EKG COMPLETED COMPLAIN OF 3/10 CHEST PAIN FROM BOTTOM CEMENTER, CELESTINA AWARE AND WILL NOTIFY DR. FREITAS, PATIENT LEFT FROM BOTTOM CEMENTER W/ THE SAME PAIN. IVF INFUSING ON LEFT AC NS @ 75 ML/HR. BELONGINGS CELPHONE AND EYEGLASSES ALL WITH THE PATIENT. NO FAMILY WITH THE PATIENT. BLOOD SUGAR 145. BLOOD PRESSURE MEDS GIVEN.
--- NOTE | 2018-07-10 10:00 | PN ---
DATE: 07/10/2018 SUBJECTIVE: The patient is stable, no events overnight. OBJECTIVE: VITAL SIGNS: Blood pressure is 141/67, pulse 75, respiration 18, temperature is 98.4. HEENT: Head is normocephalic. NECK: Supple. HEART: Regular rate. LUNGS: Show diminished breath sounds at base. ABDOMEN: Soft, nontender to palpation without rebound or guarding. EXTREMITIES: Negative for clubbing, cyanosis, no edema. DERMATOLOGIC: No rashes. MUSCULOSKELETAL: No joint effusion. NEUROLOGIC: No change in exam. MEDICATIONS: Reviewed. LABORATORY DATA: Shows sodium 142, BUN 36, creatinine 2.92. White count 8.4, hemoglobin 9.9, platel et count is 222. The patient's serological workup has been negative to date. Will continue to monit or. ASSESSMENT AND PLAN: 1. Nonoliguric acute kidney injury on top of chronic kidney disease with previous baseline creatinin e 2.2 mg/dL. Current baseline creatinine unknown. The patient likely has progression of his chronic kidney disease and may be at a new baseline. The patient does have nephrotic range proteinuria, lik aram due to diabetic nephropathy. Serological workup is ongoing. At this point, continue current caty atment plan, supportive care, renally dose all meds. 2. Chronic kidney disease with nephrotic range proteinuria, likely due to diabetic nephropathy. The patient's renal function has stabilized between creatinine 2.9 to 3.0 mg/dL. At this point, continu e current treatment plan, supportive care, continue disease factor modification. Continue serologica l workup. 3. Diabetes. Continue current diabetic regimen. 4. Anemia. Monitor hemoglobin and hematocrit levels. 5. Mineral bone disorder. Monitor calcium and phosphatase levels. 6. Coronary artery disease. The patient is pending cardiac catheterization. Will monitor closely f or any signs of contrast-associated nephropathy. 7. Hypertension. Continue current blood pressure regimen. Dictated By: GRAEME BRANDT DO NR/NTS Conf#: [id number] DID#: [id number] CC: SCOT MCKEON MD;*End*
[2018-07-10] MEDS: FAMOTIDINE 20 MG TAB PO SCH (10:36)
[2018-07-10] MEDS: ISOSORBIDE DINITRATE 20 MG TAB PO SCH ×3 (10:36→20:21)
[2018-07-10] MEDS: AMLODIPINE 10 MG TAB PO SCH (10:37)
[2018-07-10] MEDS: ACETYLCYSTEINE 600 MG CAP PO SCH ×2 (11:00→20:22)
--- NOTE | 2018-07-10 11:33 | NUR ---
PACU NOTES: TRANSFERRED TO ICU ROOM 112 W/ RIGHT FEMORAL SHEATH, NO BLEEDING NO HEMATOMA, REPORT GIVEN TO KIRAN LOPEZ. BLOOD PRESSURE 121/65 HR 67 NO PAIN. W/ HIS CELPHONE AND EYEGLASSES. TOLERATED ALL PO.O MEDS W/ FLUIDS. IVF INFUSING LEFT AC # 20 @ 75 ML/ HR. CALLED TO TELE SPOKE WITH PAT TO TELL FAMILY IF IN THE ROOM THAT PT WENT TO ROOM 112.
--- NOTE | 2018-07-10 11:33 | NUR ---
PACU IN: 0905 PACU OUT: 1133
--- NOTE | 2018-07-10 12:00 | NUR ---
PT ADMITTED FROM [facility], PRIOR TO [facility] PT WAS AT 602 TELE. S/P LHC, STENT X3. R GROIN SHEATH IN PLACED, ANGIOMAX STOPPED AT 0845. PT A0X3. HR 68, SR, BP 118/62, RR 18, T 97.6. WARM BLANKET GIVEN. PAIN 6/10 FROM R GROIN SITE. 1 TAB NORCO GIVEN FOR PAIN WELL PREMEDICATE PRIOR TO SHEATH REMOVAL. PT'S MACY AT BEDSIDE. GAVE PT AND MACY TEACHING TOP KEEP R LEG STRAIGHT DUE TO SHEATH IN PLACE. BED PLACED IN REVERSED TREND POS. PT VOIDED X 1 IN URINAL, 350ML CLEAR YELLOW. PT BELONGINGS: CELL PHONE + GLASSES, BOTH GIVEN TO PT'S . VOLUNTEER BROUGHT UP FROM TELE: RED SWEATER, WHITE SHIRT, BLACK SHOES, CISNEROS PANTS, KEYS, MEDICATIONS, AND ACACIA DORSEY METAL COLORED WATCH. ALL BELONGINGS ACCOUNTED FOR BY PT. PT'S MEDICATIONS GIVEN BACK TO PT'S FAMILY MEMBER AND WILL TAKE HOME WITH THEM.
--- NOTE | 2018-07-10 12:09 | PN ---
Date/Time of Note Date/Time of Note DATE: 07/10/18 TIME: 12:08 Objective Vitals Vital Signs Date Temp Pulse Resp B/P (MAP) Pulse Ox O2 O2 Flow FiO2 Time Delivery Rate 07/10/18 76 21 126/72 97 Room Air 11:18 (90) 07/10/18 97.8 09:08 07/09/18 2.0 20:00 Intake and Output 07/09/18 07/09/18 07/10/18 1515:00 23:00 07:00 IntakeIntake Total 360 ml 640 ml 700 ml OutputOutput Total 1000 ml 650 ml BalanceBalance 360 ml -360 ml 50 ml Results Result Diagram: 07/10/18 0544 07/10/18 0544 Medications Medications Current Medications IV Flush (NS 3 ml) 3 ml PER PROTOCOL IV ; Start 07/06/18 at 13:00 Ondansetron HCl (Zofran Inj) 4 mg Q6H PRN IV NAUSEA/VOMITING; Start 07/06/18 at 13:00 Aspirin (Aspirin) 81 mg DAILY PO Last administered on 07/10/18at 06:59; Admin Dose 81 MG; Start 07/07/18 at 09:00 Nitroglycerin (Nitroglycerin (Sl Tab) 0.4 Mg) 1 tab Q5M PRN SL .CHEST PAIN; Start 07/06/18 at 13:00 Acetaminophen (Tylenol Tab) 650 mg Q6H PRN PO .PAIN 1-3 OR TEMP; Start 07/06/18 at 13:00 Acetaminophen/ Hydrocodone Bitart ([place] (5/325)) 1 tab Q6H PRN PO .PAIN 4-6 Last administered on 07/10/18at 12:00; Admin Dose 1 TAB; Start 07/06/18 at 13:00 Famotidine (Pepcid) 20 mg DAILY PO Last administered on 07/10/18at 10:36; Admin Dose 20 MG; Start 07/06/18 at 14:00 Diagnostic Test (Pha) (Accu-Chek) 1 ea 02 XX ; Start 07/07/18 at 02:00 Insulin Glargine (Lantus) 19 units DAILY@2000 SC Last administered on 07/09/18at 20:40; Admin Dose 19 UNITS; Start 07/06/18 at 20:00 Insulin Aspart (Novolog Insulin Pen) 5 unit WITH MEALS SC Last administered on 07/09/18at 18:05; Admin Dose 5 UNIT; Start 07/06/18 at 18:00 Insulin Aspart (Novolog Insulin Pen) NOVOLOG *MILD* ALGORITHM WITH MEALS BEDTIME SC Last administered on 07/09/18at 18:01; Admin Dose 2 UNIT; Start 07/06/18 at 18:00 Miscellaneous Information 1 ea NOTE XX ; Start 07/06/18 at 14:30 Glucose (Glutose) 15 gm Q15M PRN PO DECREASED GLUCOSE; Start 07/06/18 at 14:30 Glucose (Glutose) 22.5 gm Q15M PRN PO DECREASED GLUCOSE; Start 07/06/18 at 14:30 Dextrose (D50w Syringe) 25 ml Q15M PRN IV DECREASED GLUCOSE; Start 07/06/18 at 14:30 Dextrose (D50w Syringe) 50 ml Q15M PRN IV DECREASED GLUCOSE; Start 07/06/18 at 14:30 Glucagon (Glucagen) 1 mg Q15M PRN IM DECREASED GLUCOSE; Start 07/06/18 at 14:30 Glucose (Glutose) 15 gm Q15M PRN BUCCAL DECREASED GLUCOSE; Start 07/06/18 at 14:30 Labetalol HCl (Labetalol) 10 mg Q4 PRN IV sbp >160 Last administered on 07/09/18at 04:19; Admin Dose 10 MG; Start 07/06/18 at 15:00 Atorvastatin Calcium (Lipitor) 80 mg HS PO Last administered on 07/09/18at 20:29; Admin Dose 80 MG; Start 07/06/18 at 21:00 Isosorbide Dinitrate (Isordil) 20 mg TID PO Last administered on 07/10/18at 10:36; Admin Dose 20 MG; Start 07/06/18 at 21:00 Carvedilol (Coreg) 3.125 mg BID PO Last administered on 07/10/18at 10:37; Admin Dose 3.125 MG; Start 07/08/18 at 09:00 Hydralazine HCl (Apresoline) 50 mg TID PO Last administered on 07/10/18at 10:36; Admin Dose 50 MG; Start 07/08/18 at 09:00 Morphine Sulfate (morphine) 6 mg Q4H PRN PO SEVERE PAIN LEVEL 7-10; Start 07/08/18 at 22:00 Acetylcysteine (Nac) 600 mg BID PO Last administered on 07/10/18at 11:00; Admin Dose 600 MG; Start 07/09/18 at 09:00 Amlodipine Besylate (Norvasc) 10 mg DAILY PO Last administered on 07/10/18at 10:37; Admin Dose 10 MG; Start 07/09/18 at 09:00 Ticagrelor (Brilinta) 90 mg BID PO ; Start 07/10/18 at 09:00 Sodium Chloride 1,000 ml @ 75 mls/hr [id number] IV Last administered on 07/10/18at 09:32; Admin Dose 75 MLS/HR; Start 07/10/18 at 08:51; Stop 07/10/18 at 22:10 VTE Prophylaxis Risk score (from Ns)>0 risk: 3 [place] [facility]CD contraindication: other Lines/Catheters IV Catheter Type: Spence in Place: No Assessment/Plan Hospital Course subjective cath today done Objective Physical exam General: Patient is laying in bed and answers questions appropriately Mentation: Patient is alert and oriented 4, Head: Normocephalic atraumatic Eyes: EOMI, pupils reactive to light Neck: Supple, nontender, midline Respiratory: Clear to auscultation bilaterally Cardiovascular: regular rate, no obvious murmurs Gastrointestinal: non-tender to palpation, bowel sounds heard. Neurological: Moves all extremities spontaneously Skin: No new skin lesions Assessment and plan Non-ST elevated [place] -Cardiology consulted, Dr. Benedict -Patient underwent cardiac cath today, received stent x3 in the RCA -will make sure patient has brillinta in hand before DC Acute kidney injury on CKD -Nephrology consulted -Mild increase of baseline Anemia -Patient does have mild anemia however other abnormalities are likely due to lab error as patient's hemoglobin has now stabilized, monitor Diabetes mellitus -Insulin while in house Hypertension -Continue home meds when able Disposition -Continue monitoring in the ICU status post cardiac cath -Over 40 minutes of critical care time was spent on this encounter SCOT MCKEON Jul 10, 2018 12:09
--- NOTE | 2018-07-10 12:30 | NUR ---
SCD'S PLACED ON PT.
[2018-07-10] MEDS ORDERED: ATROPINE 1 MG/10 ML SYRINGE ONE (12:44)
--- NOTE | 2018-07-10 13:10 | NUR ---
R GROIN SHEATH D/C'D [id number] BY KIRAN LOPEZ AND KIRAN WILLOUGHBY. ANGIO MAX STOPPED AT 0845. NO S/S OF BLEEDING OR HEMATOMA FROM R GROIN SITE. LISA PEDAL PULSE +2 W/ DOPPLER. GAUZE AND TEGADERM PLACED. PT DENIES PAIN. V/S STABLE. PT RESTING COMFORTABLY. BED PLACED IN REVERSED TREN POS AND GAVE TEACHING TO PT NOT TO MOVE OR BEND R LEG TO DECREASE RISK OF BLEEDING FROM R GROIN SITE. WILL CONTINUE TO REASSESS THROUGHOUT SHIFT.
--- NOTE | 2018-07-10 15:53 | NUR ---
CASE MANAGEMENT NOTE PRESCRIPTION RECEIVED FOR BRILINTA AND ASA, FORWARDED TO JESSICA AND PER JESSICA BRILINTA IS COVERED WITH A CO-PAY OF UNDER $4 AND IT WILL BE DELIVERED AT BEDSIDE PER MD'S WISHES. JESSICA [phone] KEVIN VILLATORO RN [facility] EXT [phone]
--- NOTE | 2018-07-10 18:00 | NUR ---
PER DR FREITAS, PT MAY TRANSFER TO TELE ONCE PT ABLE TO WALK. R GROIN SHEATH D/C'D 1310. PT OFF STRICT BR @ 1910 AND THEN PT WILL BE ABLE TO WALK.
[2018-07-10] MEDS: ATORVASTATIN 80 MG TAB PO SCH (20:22)
[2018-07-10] MEDS: INSULIN GLARGINE [LANTus] (100 UNITS/ML) SYG SC SCH (20:23)
--- NOTE | 2018-07-10 20:30 | NUR ---
Patient ambulated 1x around unit, pt tolerated well, no signs of SOB, pt stated he felt 8/10 pain on his back while walking, pt sating 97% on RA, vitals stable. Will continue to monitor until transfer.
--- NOTE | 2018-07-10 22:00 | NUR ---
Report given to KIRAN Mitchell from Telemetry. All questions answered. Will prepare patient for transfer to [facility]
[2018-07-11] VITALS (12 sets, daily range): BP systolic 106–131; BP diastolic 59–75; PULSE 58–80; RESP 17–20
[2018-07-11] MEDS: ACCU-CHEK XX SCH (02:50)
--- NOTE | 2018-07-11 06:53 | NUR ---
RN END OF SHIFT NOTE PATIENT ALERT AND ORIENTED X 4, DENIED PAIN, AT THE BEDSIDE. STABLE WITH NO COMPLAINTS. RUNNING NS AT 75 ML/HOUR. S/P HEART CATH YESTERDAY, RIGHT FEMORAL PUNCTURE SITE DRESSING CLEAN AND DRY, NO HEMATOMA OR BLEEDING. BED IN THE LOWEST POSITION WITH BRAKES ENGAGED, HOURLY ROUND AND BED ALARM ACTIVATED. WILL ENDORSE TO DAY SHIFT RN.
[2018-07-11] MEDS: INSULIN ASPART [NOVOLOG] 3 ML PEN SC SCH ×7 (07:57→20:19)
[2018-07-11] MEDS: ASPIRIN 81 MG TAB PO SCH (08:11)
[2018-07-11] MEDS: ISOSORBIDE DINITRATE 20 MG TAB PO SCH ×3 (08:11→20:18)
[2018-07-11] MEDS: FAMOTIDINE 20 MG TAB PO SCH (08:11)
[2018-07-11] MEDS: AMLODIPINE 10 MG TAB PO SCH (08:12)
[2018-07-11] MEDS: TICAGRELOR 90 MG TABLET PO SCH ×2 (08:16→20:22)
[2018-07-11] MEDS: ACETYLCYSTEINE 600 MG CAP PO SCH ×2 (09:01→20:18)
[2018-07-11] MEDS: SOD CHLORIDE 0.9% 1,000 ML IV SCH (09:09)
--- NOTE | 2018-07-11 13:03 | PN ---
Date/Time of Note Date/Time of Note DATE: 07/11/18 TIME: 13:00 Objective Vitals Vital Signs Date Temp Pulse Resp B/P (MAP) Pulse Ox O2 O2 Flow FiO2 Time Delivery Rate 07/11/18 80 12:11 07/11/18 98.0 20 114/69 97 Room Air 11:35 (84) 07/09/18 2.0 20:00 Intake and Output 07/10/18 07/10/18 07/11/18 1515:00 23:00 07:00 IntakeIntake Total 520 ml 715 ml OutputOutput Total 350 ml 400 ml BalanceBalance 170 ml 715 ml -400 ml Results Result Diagram: 07/11/18 0507/11/18 0520 Medications Medications Current Medications IV Flush (NS 3 ml) 3 ml PER PROTOCOL IV ; Start 07/06/18 at 13:00 Ondansetron HCl (Zofran Inj) 4 mg Q6H PRN IV NAUSEA/VOMITING Last administered on 07/10/18at 16:48; Admin Dose 4 MG; Start 07/06/18 at 13:00 Aspirin (Aspirin) 81 mg DAILY PO Last administered on 07/11/18at 08:11; Admin Dose 81 MG; Start 07/07/18 at 09:00 Nitroglycerin (Nitroglycerin (Sl Tab) 0.4 Mg) 1 tab Q5M PRN SL .CHEST PAIN; Start 07/06/18 at 13:00 Acetaminophen (Tylenol Tab) 650 mg Q6H PRN PO .PAIN 1-3 OR TEMP; Start 07/06/18 at 13:00 Acetaminophen/ Hydrocodone Bitart ([place] (5/325)) 1 tab Q6H PRN PO .PAIN 4-6 Last administered on 07/10/18at 12:00; Admin Dose 1 TAB; Start 07/06/18 at 13:00 Famotidine (Pepcid) 20 mg DAILY PO Last administered on 07/11/18at 08:11; Admin Dose 20 MG; Start 07/06/18 at 14:00 Diagnostic Test (Pha) (Accu-Chek) 1 ea 02 XX Last administered on 07/11/18at 02:50; Admin Dose 1 EA; Start 07/07/18 at 02:00 Insulin Glargine (Lantus) 19 units DAILY@2000 SC Last administered on 07/10/18at 20:23; Admin Dose 19 UNITS; Start 07/06/18 at 20:00 Insulin Aspart (Novolog Insulin Pen) 5 unit WITH MEALS SC Last administered on 07/11/18 12:02; Admin Dose 5 UNIT; Start 07/06/18 at 18:00 Insulin Aspart (Novolog Insulin Pen) NOVOLOG *MILD* ALGORITHM WITH MEALS BEDTIME SC Last administered on 07/11/18 12:02; Admin Dose 1 UNIT; Start 07/06/18 at 18:00 Miscellaneous Information 1 ea NOTE XX ; Start 07/06/18 at 14:30 Glucose (Glutose) 15 gm Q15M PRN PO DECREASED GLUCOSE; Start 07/06/18 at 14:30 Glucose (Glutose) 22.5 gm Q15M PRN PO DECREASED GLUCOSE; Start 07/06/18 at 14:30 Dextrose (D50w Syringe) 25 ml Q15M PRN IV DECREASED GLUCOSE; Start 07/06/18 at 14:30 Dextrose (D50w Syringe) 50 ml Q15M PRN IV DECREASED GLUCOSE; Start 07/06/18 at 14:30 Glucagon (Glucagen) 1 mg Q15M PRN IM DECREASED GLUCOSE; Start 07/06/18 at 14:30 Glucose (Glutose) 15 gm Q15M PRN BUCCAL DECREASED GLUCOSE; Start 07/06/18 at 14:30 Labetalol HCl (Labetalol) 10 mg Q4 PRN IV sbp >160 Last administered on at 04:19; Admin Dose 10 MG; Start 07/06/18 at 15:00 Atorvastatin Calcium (Lipitor) 80 mg HS PO Last administered on 07/10/18at 20:22; Admin Dose 80 MG; Start 07/06/18 at 21:00 Isosorbide Dinitrate (Isordil) 20 mg TID PO Last administered on 07/11/18 12:32; Admin Dose 20 MG; Start 07/06/18 at 21:00 Carvedilol (Coreg) 3.125 mg BID PO Last administered on 07/11/18 08:13; Admin Dose 3.125 MG; Start 07/08/18 at 09:00 Hydralazine HCl (Apresoline) 50 mg TID PO Last administered on 07/11/18 12:32; Admin Dose 50 MG; Start 07/08/18 at 09:00 Morphine Sulfate (morphine) 6 mg Q4H PRN PO SEVERE PAIN LEVEL 7-10 Last administered on 07/10/18at 16:48; Admin Dose 6 MG; Start 07/08/18 at 22:00 Acetylcysteine (Nac) 600 mg BID PO Last administered on 07/11/18at 09:01; Admin Dose 600 MG; Start 07/09/18 at 09:00 Amlodipine Besylate (Norvasc) 10 mg DAILY PO Last administered on 07/11/18at 08:12; Admin Dose 10 MG; Start 07/09/18 at 09:00 Ticagrelor (Brilinta) 90 mg BID PO Last administered on 07/11/18 08:16; Admin Dose 90 MG; Start 07/10/18 at 09:00 Sodium Chloride 1,000 ml @ 40 mls/hr Q24H IV Last administered on 07/11/18 09:09; Admin Dose 40 MLS/HR; Start 07/11/18 at 09:00; Stop 07/12/18 at 09:59 VTE Prophylaxis Risk score (from Ns)>0 risk: 6 SCD applied (from [facility]): Yes Lines/Catheters IV Catheter Type: Spence in Place: No Assessment/Plan Hospital Course subjective no acute complaints Objective Physical exam General: Patient is laying in bed and answers questions appropriately Mentation: Patient is alert and oriented 4, Head: Normocephalic atraumatic Eyes: EOMI, pupils reactive to light Neck: Supple, nontender, midline Respiratory: Clear to auscultation bilaterally Cardiovascular: regular rate, no obvious murmurs Gastrointestinal: non-tender to palpation, bowel sounds heard. Neurological: Moves all extremities spontaneously Skin: No new skin lesions Assessment and plan Non-ST elevated [place] -Cardiology consulted, Dr. Benedict -Patient underwent cardiac cath received stent x3 in the RCA -CM notified, RX given for brilinta and asa to be delivered by [facility] Acute kidney injury on CKD -Nephrology consulted -increased today Anemia -Patient does have mild anemia however other abnormalities are likely due to lab error as patient's hemoglobin has now stabilized, monitor Diabetes mellitus -Insulin while in house Hypertension -Continue home meds when able Disposition -observe for renal failure s/p cath....worsening cr so far SCOT MCKEON Jul 11, 2018 13:03
--- NOTE | 2018-07-11 14:05 | PN ---
DATE: 07/11/2018 SUBJECTIVE: The patient is stable. No events overnight. Urinary output has been adequate. No othe r events noted. OBJECTIVE: VITAL SIGNS: Blood pressure is 128/74, pulse 76, respirations 20, temperature 98.2. HEENT: Head is normocephalic. NECK: Supple. HEART: Regular rate. LUNGS: Show diminished breath sounds at the base. ABDOMEN: Soft, nontender to palpation without rebound or guarding. EXTREMITIES: Negative for clubbing, cyanosis, no edema. DERMATOLOGIC: No rashes. MUSCULOSKELETAL: No joint effusion. NEUROLOGIC: No change in exam. MEDICATIONS: Reviewed. LABORATORY DATA: Shows sodium 137, potassium 4.2, BUN 41, creatinine 3.33. White count 8.8, hemoglo bin 8.8, platelet count is 220. The patient's serological data has been reviewed. ASSESSMENT AND PLAN: 1. Nonoliguric acute kidney injury on top of chronic kidney disease stage IV. Etiology of current a cute kidney injury is secondary to hemodynamics. The patient is status post cardiac catheterization. The patient's creatinine has increased in the last 24 hours. Possible contrast-associated nephropa thy. We will continue to monitor closely. Continue supportive care, renally dose all meds. 2. Chronic kidney disease with nephrotic range proteinuria secondary to diabetic nephropathy. The p atient's serological workup was negative to date. Please note patient's acute kidney injury as state d above. Continue current treatment plan. 3. Diabetes. Continue current insulin regimen. 4. Anemia. Monitor hemoglobin and hematocrit levels. 5. Mineral bone disorder. Monitor calcium and phosphorus levels. 6. Coronary artery disease status post cardiac catheterization with PCI to the RCA. The patient's r enal function being monitor closely as stated above for any signs of contrast-associated nephropathy. 7. Hypertension. Continue current blood pressure regimen. Defer any SAMANTHA inhibitor at this time. Dictated By: GRAEME BRANDT DO NR/NTS Conf#: [id number] DID#: [id number] CC: SCOT MCKEON MD;*EndCC*
--- NOTE | 2018-07-11 17:41 | NUR ---
EOSS: Pt is stable, VS are WNL, Blood sugar is WNL throughout the shift. Pt did not complain of pain or discomfort. will endorse the care to nightclub manager nurse.
--- NOTE | 2018-07-11 17:43 | CONS ---
Consult Date/Type/Reason Admit Date/Time Jul 06, 2018 at 12:07 Initial Consult Date 07/06/18 Type of Consultation: cv Requesting Provider: SCOT MCKEON Date/Time of Note DATE: 07/11/18 TIME: 17:41 Subjective Interventional cardiology follow-up progress note Subjective: Discussed with the staff and tele was reviewed. Patient remains in normal sinus rhythm Discussed with the patient's Patient with no chest pain or pressure now No bleeding is reported. No groin pain. Patient does complain of shortness of breath though Events noted: Status post PCI of the right coronary artery using 3 drug-eluting stent on July 10, 2018. Objective: General: Obese gentleman no acute distress HEENT: NC/AT. pupils are equal. round. NECK: no stridor. CV: RRR. systolic murmur; no gallop or rubs. PULM: no wheezing . Mild rhonchi . GI: SOFT, NT, ND, no rebound or guarding Extremity: trace B/L LE edema. no clubbing. neuro: awake and alert, OX3. Psych: calm and pleasant rectal: deferred : normal EKG shows normal sinus rhythm. ST-T wave abnormalities suggestive of inferolateral ischemia Echocardiogram was reviewed which showed ejection fraction of 45% Chest x-ray shows: Mild cardiomegaly with pulmonary vascular congestion. Slightly more focal right lower lobe infiltrate. Objective Vitals Vital Signs Date Temp Pulse Resp B/P (MAP) Pulse Ox O2 O2 Flow FiO2 Time Delivery Rate 07/11/18 58 16:11 07/11/18 98.0 20 118/59 97 Room Air 15:10 (78) 07/09/18 2.0 20:00 Intake and Output 07/10/18 07/10/18 07/11/18 1515:00 23:00 07:00 IntakeIntake Total 520 ml 715 ml OutputOutput Total 350 ml 400 ml BalanceBalance 170 ml 715 ml -400 ml Results/Medications Result Diagram: 07/11/18 0507/11/18 0520 Results 24 hrs Laboratory Tests Test 07/10/18 17:55 07/10/18 19:59 07/11/18 00:20 07/11/18 02:49 Bedside Glucose 125 117 106 Urine Random Creatinine 150.64 Urine Total Protein Test 07/11/18 05:20 07/11/18 07:51 07/11/18 09:00 07/11/18 11:55 White Blood Count 8.8 Red Blood Count 3.09 L Hemoglobin 8.8 L Hematocrit 27.7 L Mean Corpuscular Volume 89.6 Mean Corpuscular 28.5 L Hemoglobin Mean Corpuscular 31.8 L Hemoglobin Concent Red Cell Distribution 14.4 Width Platelet Count 220 Mean Platelet Volume 11.4 H Immature Granulocytes % 0.200 Neutrophils % 72.1 Lymphocytes % 17.3 Monocytes % 9.2 Eosinophils % 0.9 Basophils % 0.3 Nucleated Red Blood 0.0 Cells % Immature Granulocytes # 0.020 Neutrophils # 6.3 Lymphocytes # 1.5 Monocytes # 0.8 Eosinophils # 0.1 Basophils # 0.0 Nucleated Red Blood 0.0 Cells # Sodium Level 137 Potassium Level 4.2 Chloride Level 112 H Carbon Dioxide Level 20 L Anion Gap 5 Blood Urea Nitrogen 41 H Creatinine 3.33 H Est Glomerular Filtrat 19 L Rate mL/min Glucose Level 100 Calcium Level 8.2 L Phosphorus Level 4.5 Magnesium Level 1.8 Bedside Glucose 112 155 151 Test 07/11/18 17:21 Bedside Glucose 153 Home Meds Active Scripts Carvedilol* (Carvedilol*) 6.25 Mg Tablet, 6.25 MG PO BID for 60 Days, #120 TAB Prov:BHARATH KING MD 04/13/17 Reported Medications Insulin Glargine* (Lantus*) 100 Unit/Ml Soln, 30 UNIT SC DAILY, #1 VIAL 04/05/17 Aspirin (Low Dose Aspirin) 81 Mg Tablet.dr, 81 MG PO DAILY, #30 TAB 04/05/17 Atorvastatin Calcium* (Atorvastatin Calcium*) 20 Mg Tablet, 20 MG PO QHS, #30 TAB 04/05/17 Amlodipine Besylate* (Amlodipine Besylate*) 10 Mg Tablet, 10 MG PO DAILY, #30 TAB 04/05/17 Discontinued Reported Medications Metformin Hcl* (Metformin Hcl*) 1,000 Mg Tablet, 1000 MG PO WITH BREAKFAST DINNE, #30 TAB 04/05/17 Medications Current Medications IV Flush (NS 3 ml) 3 ml PER PROTOCOL IV ; Start 07/06/18 at 13:00 Ondansetron HCl (Zofran Inj) 4 mg Q6H PRN IV NAUSEA/VOMITING Last administered on 07/10/18at 16:48; Admin Dose 4 MG; Start 07/06/18 at 13:00 Aspirin (Aspirin) 81 mg DAILY PO Last administered on 07/11/18 08:11; Admin Dose 81 MG; Start 07/07/18 at 09:00 Nitroglycerin (Nitroglycerin (Sl Tab) 0.4 Mg) 1 tab Q5M PRN SL .CHEST PAIN; Start 07/06/18 at 13:00 Acetaminophen (Tylenol Tab) 650 mg Q6H PRN PO .PAIN 1-3 OR TEMP; Start 07/06/18 at 13:00 Acetaminophen/ Hydrocodone Bitart ([place] (5/325)) 1 tab Q6H PRN PO .PAIN 4-6 Last administered on 07/10/18 12:00; Admin Dose 1 TAB; Start 07/06/18 at 13:00 Famotidine (Pepcid) 20 mg DAILY PO Last administered on 07/11/18 08:11; Admin Dose 20 MG; Start 07/06/18 at 14:00 Diagnostic Test (Pha) (Accu-Chek) 1 ea 02 XX Last administered on 07/11/18 02:50; Admin Dose 1 EA; Start 07/07/18 at 02:00 Insulin Glargine (Lantus) 19 units DAILY@2000 SC Last administered on 07/10/18 20:23; Admin Dose 19 UNITS; Start 07/06/18 at 20:00 Insulin Aspart (Novolog Insulin Pen) 5 unit WITH MEALS SC Last administered on 07/11/18 17:26; Admin Dose 5 UNIT; Start 07/06/18 at 18:00 Insulin Aspart (Novolog Insulin Pen) NOVOLOG *MILD* ALGORITHM WITH MEALS BEDTIME SC Last administered on 07/11/18 17:27; Admin Dose 1 UNIT; Start 07/06/18 at 18:00 Miscellaneous Information 1 ea NOTE XX ; Start 07/06/18 at 14:30 Glucose (Glutose) 15 gm Q15M PRN PO DECREASED GLUCOSE; Start 07/06/18 at 14:30 Glucose (Glutose) 22.5 gm Q15M PRN PO DECREASED GLUCOSE; Start 07/06/18 at 14:30 Dextrose (D50w Syringe) 25 ml Q15M PRN IV DECREASED GLUCOSE; Start 07/06/18 at 14:30 Dextrose (D50w Syringe) 50 ml Q15M PRN IV DECREASED GLUCOSE; Start 07/06/18 at 14:30 Glucagon (Glucagen) 1 mg Q15M PRN IM DECREASED GLUCOSE; Start 07/06/18 at 14:30 Glucose (Glutose) 15 gm Q15M PRN BUCCAL DECREASED GLUCOSE; Start 07/06/18 at 14:30 Labetalol HCl (Labetalol) 10 mg Q4 PRN IV sbp >160 Last administered on 07/09/18 04:19; Admin Dose 10 MG; Start 07/06/18 at 15:00 Atorvastatin Calcium (Lipitor) 80 mg HS PO Last administered on 07/10/18 20:22; Admin Dose 80 MG; Start 07/06/18 at 21:00 Isosorbide Dinitrate (Isordil) 20 mg TID PO Last administered on 07/11/18 12:32; Admin Dose 20 MG; Start 07/06/18 at 21:00 Carvedilol (Coreg) 3.125 mg BID PO Last administered on 07/11/18 08:13; Admin Dose 3.125 MG; Start 07/08/18 at 09:00 Hydralazine HCl (Apresoline) 50 mg TID PO Last administered on 07/11/18 12:32; Admin Dose 50 MG; Start 07/08/18 at 09:00 Morphine Sulfate (morphine) 6 mg Q4H PRN PO SEVERE PAIN LEVEL 7-10 Last administered on 07/10/18 16:48; Admin Dose 6 MG; Start 07/08/18 at 22:00 Acetylcysteine (Nac) 600 mg BID PO Last administered on 07/11/18 09:01; Admin Dose 600 MG; Start 07/09/18 at 09:00 Amlodipine Besylate (Norvasc) 10 mg DAILY PO Last administered on 07/11/18 08:12; Admin Dose 10 MG; Start 07/09/18 at 09:00 Ticagrelor (Brilinta) 90 mg BID PO Last administered on 07/11/18 08:16; Admin Dose 90 MG; Start 07/10/18 at 09:00 Sodium Chloride 1,000 ml @ 40 mls/hr Q24H IV Last administered on 07/11/18 09:09; Admin Dose 40 MLS/HR; Start 07/11/18 at 09:00; Stop 07/12/18 at 09:59 Assessment/Plan Hospital Course (Demo Recall) 1. Non-ST elevation myocardial infarction 2. Coronary artery disease with history of previous MIs 3. History of PCI 4. Hypertension 5. Diabetes 6. Congestive heart failure class IV on arrival 7. Dyslipidemia 8. Active smoker and possibly COPD 9. Renal failure acute on chronic 10. Episode of 2-1 AV block so far asymptomatic Recommendations: Aspirin and Brilinta will be continued Low-dose carvedilol to 3.125 p.o. twice daily and continue hydralazine to his regimen. Nitroglycerin to be continued as well Continue with statins Off of any SAMANTHA inhibitor or ARB due to his renal insufficiency . Follow-up renal function. Patient also has significant stenosis of his left circumflex artery stent. We will plan for possibly perform PCI of this lesion if by Friday his renal function remains stable Thank you for his referral. We will continue to follow along with you, until patient is discharged and to follow-up with his regular utility tender carding Dr.Fakheri JEANNIE FREITAS MD [facility] JEANNIE FREITAS MD Jul 11, 2018 17:43
[2018-07-11] MEDS: ATORVASTATIN 80 MG TAB PO SCH (20:18)
[2018-07-11] MEDS: INSULIN GLARGINE [LANTus] (100 UNITS/ML) SYG SC SCH (20:21)
[2018-07-12] VITALS (10 sets, daily range): BP systolic 110–162; BP diastolic 60–74; PULSE 56–82; RESP 17–19
[2018-07-12] MEDS: ACCU-CHEK XX SCH (01:50)
[2018-07-12] MEDS: SOD CHLORIDE 0.9% 1,000 ML IV SCH ×2 (05:35→08:06)
--- NOTE | 2018-07-12 06:26 | NUR ---
RN END OF SHIFT NOTE PATIENT ALERT AND ORIENTED X 4, DENIED PAIN, AT THE BEDSIDE. STABLE WITH NO COMPLAINTS. RUNNING NS AT 40 ML/HOUR WITH GOOD URINE OUTPUT 1500 ML ON MY SHIFT. PATIENT STABLE WITH STABLE VITAL SIGNS. BED IN THE LOWEST POSITION WITH BRAKES ENGAGED, CALL LIGHT AND PERSONAL ITEMS WITHIN EASY REACH, HOURLY ROUND AND BED ALARM ACTIVATED. WILL ENDORSE TO DAY SHIFT RN.
[2018-07-12] MEDS: INSULIN ASPART [NOVOLOG] 3 ML PEN SC SCH ×7 (07:55→20:35)
[2018-07-12] MEDS: FAMOTIDINE 20 MG TAB PO SCH (08:00)
[2018-07-12] MEDS: ASPIRIN 81 MG TAB PO SCH (08:00)
[2018-07-12] MEDS: ACETYLCYSTEINE 600 MG CAP PO SCH ×2 (08:00→21:20)
[2018-07-12] MEDS: AMLODIPINE 10 MG TAB PO SCH (08:01)
[2018-07-12] MEDS: ISOSORBIDE DINITRATE 20 MG TAB PO SCH ×3 (08:01→20:28)
[2018-07-12] MEDS: TICAGRELOR 90 MG TABLET PO SCH ×2 (08:05→20:21)
--- NOTE | 2018-07-12 11:24 | PN ---
Date/Time of Note Date/Time of Note DATE: 07/12/18 TIME: 11:23 Objective Vitals Vital Signs Date Temp Pulse Resp B/P (MAP) Pulse Ox O2 O2 Flow FiO2 Time Delivery Rate 07/12/18 70 08:26 07/12/18 98.5 18 128/71 95 Nasal 07:25 (90) Cannula 07/09/18 2.0 20:00 Intake and Output 07/11/18 07/11/18 07/12/18 1414:59 22:59 06:59 IntakeIntake Total 800 ml 500 ml OutputOutput Total 1500 ml BalanceBalance 800 ml -1000 ml Results Result Diagram: 07/12/18 0531 07/12/18 0532 Medications Medications Current Medications IV Flush (NS 3 ml) 3 ml PER PROTOCOL IV ; Start 07/06/18 at 13:00 Ondansetron HCl (Zofran Inj) 4 mg Q6H PRN IV NAUSEA/VOMITING Last administered on 07/10/18at 16:48; Admin Dose 4 MG; Start 07/06/18 at 13:00 Aspirin (Aspirin) 81 mg DAILY PO Last administered on 07/12/18 08:00; Admin Dose 81 MG; Start 07/07/18 at 09:00 Nitroglycerin (Nitroglycerin (Sl Tab) 0.4 Mg) 1 tab Q5M PRN SL .CHEST PAIN; Start 07/06/18 at 13:00 Acetaminophen (Tylenol Tab) 650 mg Q6H PRN PO .PAIN 1-3 OR TEMP; Start 07/06/18 at 13:00 Acetaminophen/ Hydrocodone Bitart ([place] (5/325)) 1 tab Q6H PRN PO .PAIN 4-6 Last administered on 07/10/18at 12:00; Admin Dose 1 TAB; Start 07/06/18 at 13:00 Famotidine (Pepcid) 20 mg DAILY PO Last administered on 07/12/18 08:00; Admin Dose 20 MG; Start 07/06/18 at 14:00 Diagnostic Test (Pha) (Accu-Chek) 1 ea 02 XX Last administered on 07/12/18 01:50; Admin Dose 1 EA; Start 07/07/18 at 02:00 Insulin Glargine (Lantus) 19 units DAILY@2000 SC Last administered on 2/2/19at 20:21; Admin Dose 19 UNITS; Start 07/06/18 at 20:00 Insulin Aspart (Novolog Insulin Pen) 5 unit WITH MEALS SC Last administered on 07/12/18at 07:58; Admin Dose 5 UNIT; Start 07/06/18 at 18:00 Insulin Aspart (Novolog Insulin Pen) NOVOLOG *MILD* ALGORITHM WITH MEALS BEDTIME SC Last administered on 07/11/18 17:27; Admin Dose 1 UNIT; Start 07/06/18 at 18:00 Miscellaneous Information 1 ea NOTE XX ; Start 07/06/18 at 14:30 Glucose (Glutose) 15 gm Q15M PRN PO DECREASED GLUCOSE; Start 07/06/18 at 14:30 Glucose (Glutose) 22.5 gm Q15M PRN PO DECREASED GLUCOSE; Start 07/06/18 at 14:30 Dextrose (D50w Syringe) 25 ml Q15M PRN IV DECREASED GLUCOSE; Start 07/06/18 at 14:30 Dextrose (D50w Syringe) 50 ml Q15M PRN IV DECREASED GLUCOSE; Start 07/06/18 at 14:30 Glucagon (Glucagen) 1 mg Q15M PRN IM DECREASED GLUCOSE; Start 07/06/18 at 14:30 Glucose (Glutose) 15 gm Q15M PRN BUCCAL DECREASED GLUCOSE; Start 07/06/18 at 14:30 Labetalol HCl (Labetalol) 10 mg Q4 PRN IV sbp >160 Last administered on 07/09/18 at 04:19; Admin Dose 10 MG; Start 07/06/18 at 15:00 Atorvastatin Calcium (Lipitor) 80 mg HS PO Last administered on 07/11/18at 20:18; Admin Dose 80 MG; Start 07/06/18 at 21:00 Isosorbide Dinitrate (Isordil) 20 mg TID PO Last administered on 07/12/18 08:01; Admin Dose 20 MG; Start 07/06/18 at 21:00 Carvedilol (Coreg) 3.125 mg BID PO Last administered on 07/12/18at 08:01; Admin Dose 3.125 MG; Start 07/08/18 at 09:00 Hydralazine HCl (Apresoline) 50 mg TID PO Last administered on 07/12/18at 08:01; Admin Dose 50 MG; Start 07/08/18 at 09:00 Morphine Sulfate (morphine) 6 mg Q4H PRN PO SEVERE PAIN LEVEL 7-10 Last administered on 07/10/18at 16:48; Admin Dose 6 MG; Start 07/08/18 at 22:00 Acetylcysteine (Nac) 600 mg BID PO Last administered on 07/12/18 08:00; Admin Dose 600 MG; Start 07/09/18 at 09:00 Amlodipine Besylate (Norvasc) 10 mg DAILY PO Last administered on 07/12/18at 08:01; Admin Dose 10 MG; Start 07/09/18 at 09:00 Ticagrelor (Brilinta) 90 mg BID PO Last administered on 07/12/18 08:05; Admin Dose 90 MG; Start 07/10/18 at 09:00 VTE Prophylaxis Risk score (from Ns)>0 risk: 6 SCD applied (from [facility] [place] Yes Lines/Catheters IV Catheter Type: Spence in Place: No Assessment/Plan Hospital Course subjective no acute complaints Objective Physical exam General: Patient is laying in bed and answers questions appropriately Mentation: Patient is alert and oriented 4, Head: Normocephalic atraumatic Eyes: EOMI, pupils reactive to light Neck: Supple, nontender, midline Respiratory: Clear to auscultation bilaterally Cardiovascular: regular rate, no obvious murmurs Gastrointestinal: non-tender to palpation, bowel sounds heard. Neurological: Moves all extremities spontaneously Skin: No new skin lesions Assessment and plan Non-ST elevated NM -Cardiology consulted, Dr. Benedict -Patient underwent cardiac cath received stent x3 in the RCA -CM notified, RX given for brilinta and asa to be delivered by [facility] Acute kidney injury on CKD -Nephrology consulted -increased today Anemia -Patient does have mild anemia however other abnormalities are likely due to lab error as patient's hemoglobin has now stabilized, monitor Diabetes mellitus -Insulin while in house Hypertension -Continue home meds when able Disposition -observe for renal failure s/p cath....worsening cr so far SCOT MCKEON Jul 12, 2018 11:23
--- NOTE | 2018-07-12 13:10 | PN ---
DATE: 07/12/2018 SUBJECTIVE: The patient is stable, no events overnight. OBJECTIVE: VITAL SIGNS: Blood pressure is 128/71, pulse 70, respirations 19, temperature 98.5. HEENT: Head is normocephalic. NECK: Supple. HEART: Regular rate. LUNGS: Show diminished breath sounds at the base. ABDOMEN: Soft, nontender to palpation. No rebound or guarding. EXTREMITIES: Negative for clubbing, cyanosis. No edema. DERMATOLOGIC: No rashes. MUSCULOSKELETAL: No joint effusion. NEUROLOGIC: No change in exam. MEDICATIONS: Reviewed. LABORATORY DATA: Shows a white count of 8.6, hemoglobin 9.0, platelet count is 222. Sodium 134, BUN 47, creatinine 3.74, calcium 8.2. ASSESSMENT AND PLAN: 1. Nonoliguric acute kidney injury on top of chronic kidney disease stage IV. Etiology of acute kid bushra injury is likely secondary to contrast-associated nephropathy. The patient remains in injury pha se as creatinine continues to decline. The patient has no overt signs of uremia. At this point, tammy joseue current treatment plan, supportive care, and renally dose all meds. Discontinue intravneous fl uids. No immediate need for renal replacement therapy. 2. Chronic kidney disease with nephrotic range proteinuria secondary to diabetic nephropathy. The p atient is currently in acute kidney injury as stated above. Continue to monitor. Continue disease f actor modification. 3. Diabetes. Continue current insulin regimen. 4. Anemia. Monitor hemoglobin and hematocrit levels. 5. Mineral bone disorder. Monitor calcium and phosphorus levels. 6. Coronary artery disease, status post cardiac catheterization with percutaneous coronary intervent ion to the right coronary artery. Continue to monitor. Follow up with cardiology. 7. Hypertension. Continue current blood pressure regimen. Avoid hypotensive episodes. Avoid angio tensin-converting enzyme inhibitor at this time. Dictated By: GRAEME BRANDT DO NR/NTS Conf#: [id number] DID#: [id number] CC: SCOT MCKEON MD;*EndCC*
[2018-07-12] MEDS ORDERED: ALBUTEROL/IPRATROPIUM (NEB) 3 ML AMP HHN PRN (16:30)
--- NOTE | 2018-07-12 16:57 | NUR ---
Pt was SOB., c/o chest congestion, lungs are cleared on ascultation. applied 2 L Oxygen pt is saturating 96% still c/o sob. Dr Quintana made aware. got an order for stat chest x ray, troponin stat and breathing treatment. will monitor.
[2018-07-12] MEDS: ALBUTEROL/IPRATROPIUM (NEB) 3 ML AMP HHN SCH ×2 (16:58→20:30)
--- NOTE | 2018-07-12 18:38 | NUR ---
EOSS: pt is stable VS are WNL. Pt is still c/o SOB, and neck pain. Chest Xray is negative, breathing treatment helped the pt with SOB. Trop is 15.[address] Quintana made aware. Stat EKG was done- SR. Stat Ck and CkMB was ordered. Blood sugar is WNL. 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
--- NOTE | 2018-07-12 18:38 | CONS ---
Consult Date/Type/Reason Admit Date/Time Jul 06, 2018 at 12:07 Initial Consult Date 07/06/18 Type of Consultation: cv Requesting Provider: SCOT MCKEON Date/Time of Note DATE: 07/12/18 TIME: 18:36 Subjective Interventional cardiology follow-up progress note Subjective: Discussed with the staff and tele was reviewed. Patient remains in normal sinus rhythm Discussed with the patient's Patient with no chest pain or pressure now but patient continues to complain of shortness of breath mostly in neck pain No bleeding is reported. No groin pain. Events noted: Status post PCI of the right coronary artery using 3 drug-eluting stent on July 10, 2018. Objective: General: Obese gentleman no acute distress HEENT: NC/AT. pupils are equal. round. NECK: no stridor. CV: RRR. systolic murmur; no gallop or rubs. PULM: no wheezing . Mild rhonchi . GI: SOFT, NT, ND, no rebound or guarding Extremity: trace B/L LE edema. no clubbing. neuro: awake and alert, OX3. Psych: calm and pleasant rectal: deferred : normal EKG shows normal sinus rhythm. ST-T wave abnormalities suggestive of inferolateral ischemia Echocardiogram was reviewed which showed ejection fraction of 45% Chest x-ray shows: Mild cardiomegaly with pulmonary vascular congestion. Slightly more focal right lower lobe infiltrate. Chest x-ray done 07/12/2018 shows: The aorta is tortuous and atherosclerotic. The cardiomediastinal silhouette is otherwise mildly enlarged and is stable. Mild thickening of the minor fissure is suspected. The remaining lungs and pleural spaces are clear. The soft tissues and osseous structures demonstrate benign age related senescent changes. Objective Vitals Vital Signs Date Temp Pulse Resp B/P (MAP) Pulse Ox O2 O2 Flow FiO2 Time Delivery Rate 07/12/18 97 2.0 17:04 07/12/18 77 20 Nasal 17:04 Cannula 07/12/18 98.7 123/69 15:14 (87) Intake and Output 07/11/18 07/11/18 07/12/18 1515:00 23:00 07:00 IntakeIntake Total 800 ml 500 ml OutputOutput Total 1500 ml BalanceBalance 800 ml -1000 ml Results/Medications Result Diagram: 07/12/18 0531 07/12/18 0532 Results 24 hrs Laboratory Tests Test 07/11/18 20:17 07/12/18 01:50 07/12/18 05:31 07/12/18 05:32 Bedside Glucose 138 118 White Blood Count 8.6 Red Blood Count 3.11 L Hemoglobin 9.0 L Hematocrit 28.0 L Mean Corpuscular Volume 90.0 Mean Corpuscular 28.9 L Hemoglobin Mean Corpuscular 32.1 Hemoglobin Concent Red Cell Distribution 14.0 Width Platelet Count 221 Mean Platelet Volume 11.4 H Immature Granulocytes % 0.300 Neutrophils % 71.0 Lymphocytes % 16.9 Monocytes % 9.8 Eosinophils % 1.5 Basophils % 0.5 Nucleated Red Blood 0.0 Cells % Immature Granulocytes # 0.030 Neutrophils # 6.1 Lymphocytes # 1.5 Monocytes # 0.9 Eosinophils # 0.1 Basophils # 0.0 Nucleated Red Blood 0.0 Cells # Sodium Level 134 L Potassium Level 4.3 Chloride Level 109 Carbon Dioxide Level 20 L Anion Gap 5 Blood Urea Nitrogen 47 H Creatinine 3.74 H Est Glomerular Filtrat 16 L Rate mL/min Glucose Level 107 Calcium Level 8.2 L Phosphorus Level 4.9 Magnesium Level 1.9 Test 07/12/18 07:54 07/12/18 11:51 07/12/18 16:46 07/12/18 17:47 Bedside Glucose 116 146 145 Creatinine Kinase MB 14.10 H (Mass) Troponin I 15.100 *H Home Meds Active Scripts Carvedilol* (Carvedilol*) 6.25 Mg Tablet, 6.25 MG PO BID for 60 Days, #120 TAB Prov:BHARATH KING MD 04/13/17 Reported Medications Insulin Glargine* (Lantus*) 100 Unit/Ml Soln, 30 UNIT SC DAILY, #1 VIAL 04/05/17 Aspirin (Low Dose Aspirin) 81 Mg Tablet.dr, 81 MG PO DAILY, #30 TAB 04/05/17 Atorvastatin Calcium* (Atorvastatin Calcium*) 20 Mg Tablet, 20 MG PO QHS, #30 TAB 04/05/17 Amlodipine Besylate* (Amlodipine Besylate*) 10 Mg Tablet, 10 MG PO DAILY, #30 TAB 04/05/17 Discontinued Reported Medications Metformin Hcl* (Metformin Hcl*) 1,000 Mg Tablet, 1000 MG PO WITH BREAKFAST DINNE, #30 TAB 04/05/17 Medications Current Medications IV Flush (NS 3 ml) 3 ml PER PROTOCOL IV ; Start 07/06/18 at 13:00 Ondansetron HCl (Zofran Inj) 4 mg Q6H PRN IV NAUSEA/VOMITING Last administered on 07/10/18 16:48; Admin Dose 4 MG; Start 07/06/18 at 13:00 Aspirin (Aspirin) 81 mg DAILY PO Last administered on 07/12/18 08:00; Admin Dose 81 MG; Start 07/07/18 at 09:00 Nitroglycerin (Nitroglycerin (Sl Tab) 0.4 Mg) 1 tab Q5M PRN SL .CHEST PAIN; Start 07/06/18 at 13:00 Acetaminophen (Tylenol Tab) 650 mg Q6H PRN PO .PAIN 1-3 OR TEMP; Start 07/06/18 at 13:00 Acetaminophen/ Hydrocodone Bitart ([place] (5/325)) 1 tab Q6H PRN PO .PAIN 4-6 Last administered on 07/10/18 12:00; Admin Dose 1 TAB; Start 07/06/18 at 13:00 Famotidine (Pepcid) 20 mg DAILY PO Last administered on 07/12/18 08:00; Admin Dose 20 MG; Start 07/06/18 at 14:00 Diagnostic Test (Pha) (Accu-Chek) 1 ea 02 XX Last administered on 07/12/18 01:50; Admin Dose 1 EA; Start 07/07/18 at 02:00 Insulin Glargine (Lantus) 19 units DAILY@2000 SC Last administered on 07/11/18 20:21; Admin Dose 19 UNITS; Start 07/06/18 at 20:00 Insulin Aspart (Novolog Insulin Pen) 5 unit WITH MEALS SC Last administered on 07/12/18 17:51; Admin Dose 5 UNIT; Start 07/06/18 at 18:00 Insulin Aspart (Novolog Insulin Pen) NOVOLOG *MILD* ALGORITHM WITH MEALS BEDTIME SC Last administered on 07/12/18 17:51; Admin Dose 1 UNIT; Start 07/06/18 at 18:00 Miscellaneous Information 1 ea NOTE XX ; Start 07/06/18 at 14:30 Glucose (Glutose) 15 gm Q15M PRN PO DECREASED GLUCOSE; Start 07/06/18 at 14:30 Glucose (Glutose) 22.5 gm Q15M PRN PO DECREASED GLUCOSE; Start 07/06/18 at 14:30 Dextrose (D50w Syringe) 25 ml Q15M PRN IV DECREASED GLUCOSE; Start 07/06/18 at 14:30 Dextrose (D50w Syringe) 50 ml Q15M PRN IV DECREASED GLUCOSE; Start 07/06/18 at 14:30 Glucagon (Glucagen) 1 mg Q15M PRN IM DECREASED GLUCOSE; Start 07/06/18 at 14:30 Glucose (Glutose) 15 gm Q15M PRN BUCCAL DECREASED GLUCOSE; Start 07/06/18 at 14:30 Labetalol HCl (Labetalol) 10 mg Q4 PRN IV sbp >160 Last administered on 07/09/18 04:19; Admin Dose 10 MG; Start 07/06/18 at 15:00 Atorvastatin Calcium (Lipitor) 80 mg HS PO Last administered on 07/11/18 20:18; Admin Dose 80 MG; Start 07/06/18 at 21:00 Isosorbide Dinitrate (Isordil) 20 mg TID PO Last administered on 07/12/18 13:03; Admin Dose 20 MG; Start 07/06/18 at 21:00 Carvedilol (Coreg) 3.125 mg BID PO Last administered on 07/12/18 08:01; Admin Dose 3.125 MG; Start 07/08/18 at 09:00 Hydralazine HCl (Apresoline) 50 mg TID PO Last administered on 07/12/18 13:03; Admin Dose 50 MG; Start 07/08/18 at 09:00 Morphine Sulfate (morphine) 6 mg Q4H PRN PO SEVERE PAIN LEVEL 7-10 Last administered on 07/10/18 16:48; Admin Dose 6 MG; Start 07/08/18 at 22:00 Acetylcysteine (Nac) 600 mg BID PO Last administered on 07/12/18 08:00; Admin Dose 600 MG; Start 07/09/18 at 09:00 Amlodipine Besylate (Norvasc) 10 mg DAILY PO Last administered on 07/12/18 08:01; Admin Dose 10 MG; Start 07/09/18 at 09:00 Ticagrelor (Brilinta) 90 mg BID PO Last administered on 2/3/19at 08:05; Admin Dose 90 MG; Start 07/10/18 at 09:00 Albuterol/ Ipratropium (Duoneb) 3 ml Q6H RESP THERAPY HHN Last administered on 07/12/18at 16:58; Admin Dose 3 ML; Start 07/12/18 at 16:30 Albuterol/ Ipratropium (Duoneb) 3 ml Q6H RESP THERAPY PRN HHN wheezing; Start 07/12/18 at 16:30 Ranolazine (Ranexa) 500 mg Q12 PO ; Start 07/12/18 at 21:00 Assessment/Plan Hospital Course (Demo Recall) 1. Non-ST elevation myocardial infarction 2. Coronary artery disease with history of previous MIs 3. History of PCI 4. Hypertension 5. Diabetes 6. Congestive heart failure class IV on arrival 7. Dyslipidemia 8. Active smoker and possibly COPD 9. Renal failure acute on chronic 10. Episode of 2-1 AV block so far asymptomatic Recommendations: Aspirin and Brilinta will be continued Low-dose carvedilol to 3.125 p.o. twice daily and continue hydralazine to his regimen. Nitroglycerin to be continued as well Continue with statins Ranexa will be added as well Off of any SAMANTHA inhibitor or ARB due to his renal insufficiency Follow-up renal function. Patient also has significant stenosis of his left circumflex artery stent. We will plan for possibly perform PCI of this lesion if on Friday his renal function improves. However unfortunately so far renal function is worsening. I will stop him on heparin drip given his recurrent dyspnea and elevated troponin Thank you for his referral. We will continue to follow along with you, until patient is discharged and to follow-up with his regular fitness instructor Dr.Fakheri JEANNIE FREITAS MD [facility] JEANNIE FREITAS MD Jul 12, 2018 18:38
[2018-07-12] MEDS ORDERED: HEPARIN 1000 UNITS/ML 10 ML INJ IV ONE (19:00)
[2018-07-12] MEDS ORDERED: HEPARIN 1000 UNITS/ML 10 ML INJ IV PRN (19:00)
[2018-07-12] MEDS ORDERED: HEPARIN 25000 UNITS/250 ML 250 ML IV SCH (19:30)
[2018-07-12] MEDS: RANOLAZINE (SR) 500 MG TAB PO SCH (20:14)
[2018-07-12] MEDS: ATORVASTATIN 80 MG TAB PO SCH (20:14)
[2018-07-12] MEDS: INSULIN GLARGINE [LANTus] (100 UNITS/ML) SYG SC SCH (20:22)
--- NOTE | 2018-07-12 23:37 | NUR ---
RN NOTE PATIENT ALERT AND ORIENTED X 4, DENIED PAIN, ON HEPARIN DRIP, PATIENT BLEEDING FROM NOSE, DR. FREITAS NOTIFIED AND HE ORDERED TO HOLD HEPARIN DRIP. ORDERS CARRIED OUT. WILL CONTINUE TO MONITOR PATIENT.
[2018-07-13] VITALS (11 sets, daily range): BP systolic 103–140; BP diastolic 55–72; PULSE 55–81; RESP 19–20
[2018-07-13] MEDS: ALBUTEROL/IPRATROPIUM (NEB) 3 ML AMP HHN SCH ×4 (02:02→20:02)
[2018-07-13] MEDS: ACCU-CHEK XX SCH (02:39)
--- NOTE | 2018-07-13 06:10 | NUR ---
RN END OF SHIFT NOTE PATIENT ALERT AND ORIENTED X 4, WITH SOME ANXIETY, OFFERED TO CALL FOR MEDS, HE DECLINED, DENIED PAIN, AND AT THE BEDSIDE. PATIENT HAD NOSE BLEED AND HEPARIN DRIP WAS PUT ON HOLD BY DR. FREITAS. VITAL SIGNS WITHIN NORMAL LIMIT WITH GOOD URINE OUTPUT. BED IN THE LOWEST POSITION WITH BRAKES ENGAGED, CALL LIGHT AND PERSONAL ITEMS WITHIN EASY REACH, HOURLY ROUND AND BED ALARM ACTIVATED. WILL ENDORSE TO DAY SHIFT RN.
[2018-07-13] MEDS ORDERED: LORAZEPAM 2 MG INJ IV ONE (06:55)
[2018-07-13] MEDS: INSULIN ASPART [NOVOLOG] 3 ML PEN SC SCH ×7 (07:47→20:57)
[2018-07-13] MEDS: ASPIRIN 81 MG TAB PO SCH (07:50)
[2018-07-13] MEDS: FAMOTIDINE 20 MG TAB PO SCH (07:51)
[2018-07-13] MEDS: ISOSORBIDE DINITRATE 20 MG TAB PO SCH ×3 (07:51→20:56)
[2018-07-13] MEDS: AMLODIPINE 10 MG TAB PO SCH (07:51)
[2018-07-13] MEDS: RANOLAZINE (SR) 500 MG TAB PO SCH ×2 (07:52→20:55)
[2018-07-13] MEDS: TICAGRELOR 90 MG TABLET PO SCH ×2 (07:54→20:53)
--- NOTE | 2018-07-13 08:25 | PN ---
DATE: 07/13/2018 SUBJECTIVE: The patient is stable, no events overnight. No shortness of breath. OBJECTIVE: VITAL SIGNS: Blood pressure is 115/62, pulse 79, respirations 20, temperature 98.2. HEENT: Head is normocephalic. NECK: Supple. HEART: Regular rate. LUNGS: Show diminished breath sounds at the base. ABDOMEN: Soft, nontender to palpation without rebound or guarding. EXTREMITIES: Negative for clubbing, cyanosis. No edema. DERMATOLOGIC: No rashes. MUSCULOSKELETAL: No joint effusion. NEUROLOGIC: No change in exam. MEDICATIONS: Reviewed. LABORATORY DATA: Sodium 135, potassium 4.2, BUN 50, creatinine 3.78, phosphorus 5.5, calcium is 8.2. Troponin is 13. ASSESSMENT AND PLAN: 1. Nonoliguric acute kidney injury on top of chronic kidney disease stage IV. Etiology of acute kid bushra injury is secondary to contrast-associated nephropathy. The patient appears to be entering maint enance phase of acute tubular necrosis, as creatinine appears to be stabilizing. There are no overt signs of uremia. At this point, continue current treatment plan, supportive care, renally dose all m eds. 2. Chronic kidney disease with nephrotic range proteinuria secondary to diabetic nephropathy. The p atient is currently in acute kidney injury as stated above. Continue current treatment plan. Contin ue disease factor modifications. 3. Diabetes. Continue current insulin regimen. 4. Anemia. Monitor hemoglobin and hematocrit levels. 5. Mineral bone disorder, monitor calcium and phosphorus levels. 6. Coronary artery disease, status post cardiac catheterization with percutaneous coronary intervent ion to right coronary artery. Continue to monitor. Follow up with cardiology. The patient may be p ending future cardiac catheterization if renal function stabilizes. 7. Hypertension. Continue current blood pressure regimen. Avoid SAMANTHA inhibitor or ARB. Dictated By: GRAEME BRANDT DO NR/NTS Conf#: [id number] DID#: [id number] CC: SCOT MCKEON MD;*End*
[2018-07-13] MEDS: ACETYLCYSTEINE 600 MG CAP PO SCH ×2 (09:10→20:55)
--- NOTE | 2018-07-13 09:14 | PN ---
Date/Time of Note Date/Time of Note DATE: 07/13/18 TIME: 09:14 Assessment/Plan VTE Prophylaxis Risk score (from Ns)>0 risk: 8 SCD applied (from Ns): Yes Pharmacological prophylaxis: other Lines/Catheters IV Catheter Type (from [facility]): Peripheral IV Urinary Cath still in place: No Assessment/Plan Assessment/Plan 1. Non-ST elevated DC s/p PCI - Cardiology on board and appreciate recommendations. patient currently taking Brilinta and aspirin. had diffuse nasal bleeding once heparin drip was initiated. - Patient underwent cardiac cath received stent x3 in the RCA and needs reeva luation given persistent elevated cardiac enzymes once Cr improves 2. Acute kidney injury on CKD - Nephrology consultation appreciate. patient in maintenance phase of ATN with etiology being contrast. Will continue monitoring for improvement and avoid nephrotoxic agents 3. Anemia - Drop in hgb following nose bleed but remains hemodynamically stable. continue monitoring but no need for transfusions at this time 4. Diabetes mellitus - Insulin while in house 5. Hypertension - stable 6. JUAN JOSÉ - will need outpatient pulm follow up for sleep study - CPAP qhs 7. Disposition - Continue current treatment and monitor for improvement in renal function - Will need repeat PCI prior to discharge Result Diagram: 07/13/18 0500 07/13/18 0514 Results 24hrs Laboratory Tests Test 07/12/18 11:51 07/12/18 16:46 07/12/18 17:47 07/12/18 19:44 Bedside Glucose 146 145 Creatine Kinase 663 H Creatinine Kinase MB 14.10 H (Mass) Troponin I 15.100 *H Activated 97.2 *H Partial Thromboplast Time Test 07/12/18 20:13 07/13/18 02:14 07/13/18 02:15 07/13/18 05:00 Bedside Glucose 100 106 Activated 36.8 H Partial Thromboplast Time White Blood Count 7.4 Red Blood Count 2.82 L Hemoglobin 8.2 L Hematocrit 25.0 L Mean Corpuscular Volume 88.7 Mean Corpuscular 29.1 Hemoglobin Mean Corpuscular 32.8 Hemoglobin Concent Red Cell Distribution 13.6 Width Platelet Count 188 Mean Platelet Volume 11.5 H Immature Granulocytes % 0.400 Neutrophils % 67.0 Lymphocytes % 18.5 Monocytes % 12.3 H Eosinophils % 1.4 Basophils % 0.4 Nucleated Red Blood 0.0 Cells % Immature Granulocytes # 0.030 Neutrophils # 4.9 Lymphocytes # 1.4 Monocytes # 0.9 Eosinophils # 0.1 Basophils # 0.0 Nucleated Red Blood 0.0 Cells # Test 07/13/18 05:14 07/13/18 07:35 Sodium Level 135 Potassium Level 4.2 Chloride Level 109 Carbon Dioxide Level 19 L Anion Gap 7 Blood Urea Nitrogen 50 H Creatinine 3.78 H Est Glomerular Filtrat 16 L Rate mL/min Glucose Level 96 Calcium Level 8.2 L Phosphorus Level 5.5 H Magnesium Level 1.9 Creatine Kinase 543 H Creatine Kinase Index 1.6 Creatinine Kinase MB 8.84 H (Mass) Troponin I 13.200 *H Bedside Glucose 95 Subjective 24 Hr Interval Summary Free Text/Dictation Patient confused this am after being given ativan for anxiety. at bedside and plan of care discussed. Also noted with sleep apnea and does admit to being aware of apneic episodes. Exam/Review of Systems Exam Vitals Vital Signs Date Temp Pulse Resp B/P (MAP) Pulse Ox O2 O2 Flow FiO2 Time Delivery Rate 07/13/18 69 08:00 07/13/18 20 97 21 07:58 07/13/18 98.2 115/62 Room Air 07:26 (79) 07/13/18 2.0 02:04 Intake and Output 07/12/18 07/12/18 07/13/18 1515:00 23:00 07:00 IntakeIntake Total 90 ml 2000 ml 420 ml OutputOutput Total 2000 ml BalanceBalance 90 ml 2000 ml -1580 ml Exam General: Patient is laying in bed. mildly confused and not oriented to self, place, or time Head: Normocephalic atraumatic Neck: Supple Respiratory: Clear to auscultation bilaterally. no wheezing or rhonchi Cardiovascular: regular rate and rhythm, no obvious murmurs Gastrointestinal: soft, non-tender to palpation, bowel sounds heard. Neurological: Moves all extremities spontaneously Skin: No new skin lesions Results Results 24hrs Laboratory Tests Test 07/12/18 11:51 07/12/18 16:46 07/12/18 17:47 07/12/18 19:44 Bedside Glucose 146 145 Creatine Kinase 663 H Creatinine Kinase MB 14.10 H (Mass) Troponin I 15.100 *H Activated 97.2 *H Partial Thromboplast Time Test 07/12/18 20:13 07/13/18 02:14 07/13/18 02:15 07/13/18 05:00 Bedside Glucose 100 106 Activated 36.8 H Partial Thromboplast Time White Blood Count 7.4 Red Blood Count 2.82 L Hemoglobin 8.2 L Hematocrit 25.0 L Mean Corpuscular Volume 88.7 Mean Corpuscular 29.1 Hemoglobin Mean Corpuscular 32.8 Hemoglobin Concent Red Cell Distribution 13.6 Width Platelet Count 188 Mean Platelet Volume 11.5 H Immature Granulocytes % 0.400 Neutrophils % 67.0 Lymphocytes % 18.5 Monocytes % 12.3 H Eosinophils % 1.4 Basophils % 0.4 Nucleated Red Blood 0.0 Cells % Immature Granulocytes # 0.030 Neutrophils # 4.9 Lymphocytes # 1.4 Monocytes # 0.9 Eosinophils # 0.1 Basophils # 0.0 Nucleated Red Blood 0.0 Cells # Test 07/13/18 05:14 07/13/18 07:35 Sodium Level 135 Potassium Level 4.2 Chloride Level 109 Carbon Dioxide Level 19 L Anion Gap 7 Blood Urea Nitrogen 50 H Creatinine 3.78 H Est Glomerular Filtrat 16 L Rate mL/min Glucose Level 96 Calcium Level 8.2 L Phosphorus Level 5.5 H Magnesium Level 1.9 Creatine Kinase 543 H Creatine Kinase Index 1.6 Creatinine Kinase MB 8.84 H (Mass) Troponin I 13.200 *H Bedside Glucose 95 Medications Medication Current Medications IV Flush (NS 3 ml) 3 ml PER PROTOCOL IV ; Start 07/06/18 at 13:00 Ondansetron HCl (Zofran Inj) 4 mg Q6H PRN IV NAUSEA/VOMITING Last administered on 07/10/18at 16:48; Admin Dose 4 MG; Start 07/06/18 at 13:00 Aspirin (Aspirin) 81 mg DAILY PO Last administered on 07/13/18at 07:50; Admin Dose 81 MG; Start 07/07/18 at 09:00 Nitroglycerin (Nitroglycerin (Sl Tab) 0.4 Mg) 1 tab Q5M PRN SL .CHEST PAIN; Start 07/06/18 at 13:00 Acetaminophen (Tylenol Tab) 650 mg Q6H PRN PO .PAIN 1-3 OR TEMP; Start 07/06/18 at 13:00 Acetaminophen/ Hydrocodone Bitart ([place] (5/325)) 1 tab Q6H PRN PO .PAIN 4-6 Last administered on 07/10/18 12:00; Admin Dose 1 TAB; Start 07/06/18 at 13:00 Famotidine (Pepcid) 20 mg DAILY PO Last administered on 07/13/18 07:51; Admin Dose 20 MG; Start 07/06/18 at 14:00 Diagnostic Test (Pha) (Accu-Chek) 1 ea 02 XX Last administered on 07/13/18 02:39; Admin Dose 1 EA; Start 07/07/18 at 02:00 Insulin Glargine (Lantus) 19 units DAILY@2000 SC Last administered on 07/12/18 20:22; Admin Dose 19 UNITS; Start 07/06/18 at 20:00 Insulin Aspart (Novolog Insulin Pen) 5 unit WITH MEALS SC Last administered on 07/13/18 07:53; Admin Dose 5 UNIT; Start 07/06/18 at 18:00 Insulin Aspart (Novolog Insulin Pen) NOVOLOG *MILD* ALGORITHM WITH MEALS BEDTIME SC Last administered on 07/12/18 17:51; Admin Dose 1 UNIT; Start 07/06/18 at 18:00 Miscellaneous Information 1 ea NOTE XX ; Start 07/06/18 at 14:30 Glucose (Glutose) 15 gm Q15M PRN PO DECREASED GLUCOSE; Start 07/06/18 at 14:30 Glucose (Glutose) 22.5 gm Q15M PRN PO DECREASED GLUCOSE; Start 07/06/18 at 14:30 Dextrose (D50w Syringe) 25 ml Q15M PRN IV DECREASED GLUCOSE; Start 07/06/18 at 14:30 Dextrose (D50w Syringe) 50 ml Q15M PRN IV DECREASED GLUCOSE; Start 07/06/18 at 14:30 Glucagon (Glucagen) 1 mg Q15M PRN IM DECREASED GLUCOSE; Start 07/06/18 at 14:30 Glucose (Glutose) 15 gm Q15M PRN BUCCAL DECREASED GLUCOSE; Start 07/06/18 at 14:30 Labetalol HCl (Labetalol) 10 mg Q4 PRN IV sbp >160 Last administered on 07/09/18at 04:19; Admin Dose 10 MG; Start 07/06/18 at 15:00 Atorvastatin Calcium (Lipitor) 80 mg HS PO Last administered on 07/12/18 20:14; Admin Dose 80 MG; Start 07/06/18 at 21:00 Isosorbide Dinitrate (Isordil) 20 mg TID PO Last administered on 07/13/18 07:51; Admin Dose 20 MG; Start 07/06/18 at 21:00 Carvedilol (Coreg) 3.125 mg BID PO Last administered on 07/13/18 07:51; Admin Dose 3.125 MG; Start 07/08/18 at 09:00 Hydralazine HCl (Apresoline) 50 mg TID PO Last administered on 07/13/18 07:51; Admin Dose 50 MG; Start 07/08/18 at 09:00 Morphine Sulfate (morphine) 6 mg Q4H PRN PO SEVERE PAIN LEVEL 7-10 Last administered on 07/10/18 16:48; Admin Dose 6 MG; Start 07/08/18 at 22:00 Acetylcysteine (Nac) 600 mg BID PO Last administered on 07/13/18 09:10; Admin Dose 600 MG; Start 07/09/18 at 09:00 Amlodipine Besylate (Norvasc) 10 mg DAILY PO Last administered on 07/13/18 07:51; Admin Dose 10 MG; Start 07/09/18 at 09:00 Ticagrelor (Brilinta) 90 mg BID PO Last administered on 07/13/18 07:54; Admin Dose 90 MG; Start 07/10/18 at 09:00 Albuterol/ Ipratropium (Duoneb) 3 ml Q6H RESP THERAPY HHN Last administered on 07/13/18 07:57; Admin Dose 3 ML; Start 07/12/18 at 16:30 Albuterol/ Ipratropium (Duoneb) 3 ml Q6H RESP THERAPY PRN HHN wheezing; Start 07/12/18 at 16:30 Ranolazine (Ranexa) 500 mg Q12 PO Last administered on 07/13/18 07:52; Admin Dose 500 MG; Start 07/12/18 at 21:00 Heparin Sodium (Porcine) (Heparin (1000 Units/ml)) 4,000 unit PER PROTOCOL PRN IV aPTT<47; Start 07/12/18 at 19:00 Heparin Sodium (Porcine) 250 ml @ 10 mls/hr PER PROTOCOL IV Last administered on 07/12/18at 20:23; Admin Dose 10 MLS/HR; Start 07/12/18 at 19:30; Status Hold AVELINO WHITE MD Jul 13, 2018 09:14
--- NOTE | 2018-07-13 18:45 | NUR ---
EOSS: Pt in bed. No complaints. Not in distress. Call light in reach. Bed locked in lowest position with 2 side rails raised. No issues during shift. All needs met. IV intact. Pt turns self. Pt stable. Family at bedside. Pt is more awake and alert. Bed alarm on.
--- NOTE | 2018-07-13 18:50 | CONS ---
Consult Date/Type/Reason Admit Date/Time Jul 06, 2018 at 12:07 Initial Consult Date 07/06/18 Type of Consultation: cv Requesting Provider: SCOT MCKEON Date/Time of Note DATE: 07/13/18 TIME: 18:48 Subjective Interventional cardiology follow-up progress note Subjective: Discussed with the staff and physicians. Tele was reviewed. Patient remains in normal sinus rhythm Discussed with the patient's Patient with no chest pain or pressure now Patient with nosebleed last night heparin had to be stopped No bleeding is reported. No groin pain. Events noted: Status post PCI of the right coronary artery using 3 drug-eluting stent on July 10, 2018. Objective: General: Obese gentleman no acute distress HEENT: NC/AT. pupils are equal. round. NECK: no stridor. CV: RRR. systolic murmur; no gallop or rubs. PULM: no wheezing . Mild rhonchi . GI: SOFT, NT, ND, no rebound or guarding Extremity: trace B/L LE edema. no clubbing. neuro: awake and alert, OX3. Psych: calm and pleasant rectal: deferred : normal EKG shows normal sinus rhythm. ST-T wave abnormalities suggestive of inferolateral ischemia Echocardiogram was reviewed which showed ejection fraction of 45% Chest x-ray shows: Mild cardiomegaly with pulmonary vascular congestion. Slightly more focal right lower lobe infiltrate. Chest x-ray done 07/12/2018 shows: The aorta is tortuous and atherosclerotic. The cardiomediastinal silhouette is otherwise mildly enlarged and is stable. Mild thickening of the minor fissure is suspected. The remaining lungs and pleural spaces are clear. The soft tissues and osseous structures demonstrate benign age related senescent changes. Objective Vitals Vital Signs Date Temp Pulse Resp B/P (MAP) Pulse Ox O2 O2 Flow FiO2 Time Delivery Rate 07/13/18 65 16:00 07/13/18 97.8 20 118/72 97 Room Air 15:00 (87) 07/13/18 21 13:41 07/13/18 2.0 11:59 Intake and Output 07/12/18 07/12/18 07/13/18 1515:00 23:00 07:00 IntakeIntake Total 90 ml 2000 ml 420 ml OutputOutput Total 2000 ml BalanceBalance 90 ml 2000 ml -1580 ml Results/Medications Result Diagram: 07/13/18 0500 07/13/18 0514 Results 24 hrs Laboratory Tests Test 07/12/18 19:44 07/12/18 20:13 07/13/18 02:14 07/13/18 02:15 Activated 97.2 *H 36.8 H Partial Thromboplast Time Bedside Glucose 100 106 Test 07/13/18 05:00 07/13/18 05:14 07/13/18 07:35 07/13/18 11:38 White Blood Count 7.4 Red Blood Count 2.82 L Hemoglobin 8.2 L Hematocrit 25.0 L Mean Corpuscular Volume 88.7 Mean Corpuscular 29.1 Hemoglobin Mean Corpuscular 32.8 Hemoglobin Concent Red Cell Distribution 13.6 Width Platelet Count 188 Mean Platelet Volume 11.5 H Immature Granulocytes % 0.400 Neutrophils % 67.0 Lymphocytes % 18.5 Monocytes % 12.3 H Eosinophils % 1.4 Basophils % 0.4 Nucleated Red Blood 0.0 Cells % Immature Granulocytes # 0.030 Neutrophils # 4.9 Lymphocytes # 1.4 Monocytes # 0.9 Eosinophils # 0.1 Basophils # 0.0 Nucleated Red Blood 0.0 Cells # Sodium Level 134 L Potassium Level 4.3 Chloride Level 109 Carbon Dioxide Level 18 L Anion Gap 7 Blood Urea Nitrogen 49 H Creatinine 3.58 H Est Glomerular Filtrat 17 L Rate mL/min Glucose Level 96 Calcium Level 8.1 L Phosphorus Level 5.5 H Magnesium Level 1.9 Total Bilirubin 0.1 L Direct Bilirubin 0.00 Indirect Bilirubin 0.1 Aspartate Amino 54 H Transf (AST/SGOT) Alanine 35 Aminotransferase (ALT/SG PT) Alkaline Phosphatase 69 Creatine Kinase 543 H Creatine Kinase Index 1.6 Creatinine Kinase MB 8.84 H (Mass) Troponin I 13.200 *H B-Type Natriuretic 6550 H Peptide Total Protein 5.4 L Albumin 2.7 L Globulin 2.70 Albumin/Globulin Ratio 1.00 Bedside Glucose 95 111 Test 07/13/18 16:50 Bedside Glucose 156 Home Meds Active Scripts Carvedilol* (Carvedilol*) 6.25 Mg Tablet, 6.25 MG PO BID for 60 Days, #120 TAB Prov:BHARATH KING MD 04/13/17 Reported Medications Insulin Glargine* (Lantus*) 100 Unit/Ml Soln, 30 UNIT SC DAILY, #1 VIAL 10/28/17 Aspirin (Low Dose Aspirin) 81 Mg Tablet.dr, 81 MG PO DAILY, #30 TAB 04/05/17 Atorvastatin Calcium* (Atorvastatin Calcium*) 20 Mg Tablet, 20 MG PO QHS, #30 TAB 04/05/17 Amlodipine Besylate* (Amlodipine Besylate*) 10 Mg Tablet, 10 MG PO DAILY, #30 TAB 04/05/17 Discontinued Reported Medications Metformin Hcl* (Metformin Hcl*) 1,000 Mg Tablet, 1000 MG PO WITH BREAKFAST DINNE, #30 TAB 04/05/17 Medications Current Medications IV Flush (NS 3 ml) 3 ml PER PROTOCOL IV ; Start 07/06/18 at 13:00 Ondansetron HCl (Zofran Inj) 4 mg Q6H PRN IV NAUSEA/VOMITING Last administered on 07/10/18at 16:48; Admin Dose 4 MG; Start 07/06/18 at 13:00 Aspirin (Aspirin) 81 mg DAILY PO Last administered on 07/13/18at 07:50; Admin Dose 81 MG; Start 07/07/18 at 09:00 Nitroglycerin (Nitroglycerin (Sl Tab) 0.4 Mg) 1 tab Q5M PRN SL .CHEST PAIN; Start 07/06/18 at 13:00 Acetaminophen (Tylenol Tab) 650 mg Q6H PRN PO .PAIN 1-3 OR TEMP; Start 07/06/18 at 13:00 Acetaminophen/ Hydrocodone Bitart ([place] (5/325)) 1 tab Q6H PRN PO .PAIN 4-6 Last administered on 07/10/18at 12:00; Admin Dose 1 TAB; Start 07/06/18 at 13:00 Famotidine (Pepcid) 20 mg DAILY PO Last administered on 07/13/18at 07:51; Admin Dose 20 MG; Start 07/06/18 at 14:00 Diagnostic Test (Pha) (Accu-Chek) 1 ea 02 XX Last administered on 07/13/18at 0 2:39; Admin Dose 1 EA; Start 07/07/18 at 02:00 Insulin Glargine (Lantus) 19 units DAILY@2000 SC Last administered on 07/12/18at 20:22; Admin Dose 19 UNITS; Start 07/06/18 at 20:00 Insulin Aspart (Novolog Insulin Pen) 5 unit WITH MEALS SC Last administered on 07/13/18 16:55; Admin Dose 5 UNIT; Start 07/06/18 at 18:00 Insulin Aspart (Novolog Insulin Pen) NOVOLOG *MILD* ALGORITHM WITH MEALS BEDTIME SC Last administered on 07/13/18 16:55; Admin Dose 1 UNIT; Start 07/06/18 at 18:00 Miscellaneous Information 1 ea NOTE XX ; Start 07/06/18 at 14:30 Glucose (Glutose) 15 gm Q15M PRN PO DECREASED GLUCOSE; Start 07/06/18 at 14:30 Glucose (Glutose) 22.5 gm Q15M PRN PO DECREASED GLUCOSE; Start 07/06/18 at 14:30 Dextrose (D50w Syringe) 25 ml Q15M PRN IV DECREASED GLUCOSE; Start 07/06/18 at 14:30 Dextrose (D50w Syringe) 50 ml Q15M PRN IV DECREASED GLUCOSE; Start 07/06/18 at 14:30 Glucagon (Glucagen) 1 mg Q15M PRN IM DECREASED GLUCOSE; Start 07/06/18 at 14:30 Glucose (Glutose) 15 gm Q15M PRN BUCCAL DECREASED GLUCOSE; Start 07/06/18 at 14:30 Labetalol HCl (Labetalol) 10 mg Q4 PRN IV sbp >160 Last administered on 07/09/18 04:19; Admin Dose 10 MG; Start 07/06/18 at 15:00 Atorvastatin Calcium (Lipitor) 80 mg HS PO Last administered on 07/12/18 20:14; Admin Dose 80 MG; Start 07/06/18 at 21:00 Isosorbide Dinitrate (Isordil) 20 mg TID PO Last administered on 07/13/18 07:51; Admin Dose 20 MG; Start 07/06/18 at 21:00 Carvedilol (Coreg) 3.125 mg BID PO Last administered on 07/13/18 07:51; Admin Dose 3.125 MG; Start 07/08/18 at 09:00 Hydralazine HCl (Apresoline) 50 mg TID PO Last administered on 07/13/18 07:51; Admin Dose 50 MG; Start 07/08/18 at 09:00 Morphine Sulfate (morphine) 6 mg Q4H PRN PO SEVERE PAIN LEVEL 7-10 Last administered on 07/10/18 16:48; Admin Dose 6 MG; Start 07/08/18 at 22:00 Acetylcysteine (Nac) 600 mg BID PO Last administered on 07/13/18 09:10; Admin Dose 600 MG; Start 07/09/18 at 09:00 Amlodipine Besylate (Norvasc) 10 mg DAILY PO Last administered on 07/13/18 07:51; Admin Dose 10 MG; Start 07/09/18 at 09:00 Ticagrelor (Brilinta) 90 mg BID PO Last administered on 07/13/18 07:54; Admin Dose 90 MG; Start 07/10/18 at 09:00 Albuterol/ Ipratropium (Duoneb) 3 ml Q6H RESP THERAPY HHN Last administered on 07/13/18 13:40; Admin Dose 3 ML; Start 07/12/18 at 16:30 Albuterol/ Ipratropium (Duoneb) 3 ml Q6H RESP THERAPY PRN HHN wheezing; Start 07/12/18 at 16:30 Ranolazine (Ranexa) 500 mg Q12 PO Last administered on 07/13/18 07:52; Admin Dose 500 MG; Start 07/12/18 at 21:00 Heparin Sodium (Porcine) (Heparin (1000 Units/ml)) 4,000 unit PER PROTOCOL PRN IV aPTT<47; Start 07/12/18 at 19:00 Heparin Sodium (Porcine) 250 ml @ 10 mls/hr PER PROTOCOL IV Last administered on 07/12/18 20:23; Admin Dose 10 MLS/HR; Start 07/12/18 at 19:30; Status Hold Polyethylene Glycol (Miralax) 17 gm DAILY PRN NGT CONSTIPATION; Start 07/13/18 at 18:00 Assessment/Plan Hospital Course (Demo Recall) 1. Non-ST elevation myocardial infarction 2. Coronary artery disease with history of previous MIs 3. History of PCI 4. Hypertension 5. Diabetes 6. Congestive heart failure class IV on arrival 7. Dyslipidemia 8. Active smoker and possibly COPD 9. Renal failure acute on chronic 10. Episode of 2-1 AV block so far asymptomatic Recommendations: Aspirin and Brilinta will be continued Low-dose carvedilol to 3.125 p.o. twice daily and continue hydralazine to his regimen. Nitroglycerin to be continued as well Continue with statins Ranexa has been added as well Off of any SAMANTHA inhibitor or ARB due to his renal insufficiency Follow-up renal function. Patient also has significant stenosis of his left circumflex artery stent. We will plan for possibly perform PCI of this lesion once his renal function improves. However unfortunately so far renal function is worsening. Discussed with renal who decided to hold off on it for now until his renal function is stabilized/improved Thank you for his referral. We will continue to follow along with you, until patient is discharged and to follow-up with his regular director of emergency nursing Dr.Fakheri JEANNIE FREITAS MD [facility] JEANNIE FREITAS MD Jul 13, 2018 18:49
[2018-07-13] MEDS: INSULIN GLARGINE [LANTus] (100 UNITS/ML) SYG SC SCH (20:53)
[2018-07-13] MEDS: ATORVASTATIN 80 MG TAB PO SCH (20:55)
[2018-07-13] MEDS: POLYETHYLENE GLYCOL 17 GM PACKET NGT PRN (21:00)
[2018-07-14] VITALS (13 sets, daily range): BP systolic 119–148; BP diastolic 58–74; PULSE 60–84; RESP 16–20
[2018-07-14] MEDS: ALBUTEROL/IPRATROPIUM (NEB) 3 ML AMP HHN SCH ×4 (02:15→20:28)
[2018-07-14] MEDS: ACCU-CHEK XX SCH (02:30)
--- NOTE | 2018-07-14 06:47 | NUR ---
RN END OF SHIFT NOTE PATIENT ALERT AND ORIENTED X 4, DENIED PAIN, SLEPT WELL LAST NIGHT. ABLE TO MAKE HIS NEEDS KNOWN, AT THE BEDSIDE, VITAL SIGNS WITHIN NORMAL LIMIT WITH GOOD URINE OUTPUT 1500 ML ON MY SHIFT. BED IN THE LOWEST POSITION WITH BRAKES ENGAGED, CALL LIGHT AND PERSONAL ITEMS WITHIN EASY REACH, HOURLY ROUND AND BED ALARM ACTIVATED. WILL ENDORSE TO DAY SHIFT RN.
[2018-07-14] MEDS: INSULIN ASPART [NOVOLOG] 3 ML PEN SC SCH ×7 (07:35→21:35)
--- NOTE | 2018-07-14 07:50 | CONS ---
Consult Date/Type/Reason Admit Date/Time Jul 06, 2018 at 12:07 Initial Consult Date 07/06/18 Type of Consultation: cv Requesting Provider: SCOT MCKEON Date/Time of Note DATE: 07/14/18 TIME: 07:49 Subjective Interventional cardiology follow-up progress note Subjective: Discussed with the staff and . d/w physicians. Tele was reviewed. Patient remains in normal sinus rhythm Patient with no chest pain or pressure now Patient with mild nosebleed last night No bleeding is reported. No groin pain. Events noted: Status post PCI of the right coronary artery using 3 drug-eluting stent on July 10, 2018. Objective: General: Obese gentleman no acute distress HEENT: NC/AT. pupils are equal. round. NECK: no stridor. CV: RRR. systolic murmur; no gallop or rubs. PULM: no wheezing . Mild rhonchi . GI: SOFT, NT, ND, no rebound or guarding Extremity: trace B/L LE edema. no clubbing. neuro: awake and alert, OX3. Psych: calm and pleasant rectal: deferred : normal EKG shows normal sinus rhythm. ST-T wave abnormalities suggestive of inferolateral ischemia Echocardiogram was reviewed which showed ejection fraction of 45% Chest x-ray shows: Mild cardiomegaly with pulmonary vascular congestion. Slightly more focal right lower lobe infiltrate. Chest x-ray done 07/12/2018 shows: The aorta is tortuous and atherosclerotic. The cardiomediastinal silhouette is otherwise mildly enlarged and is stable. Mild thickening of the minor fissure is suspected. The remaining lungs and pleural spaces are clear. The soft tissues and osseous structures demonstrate benign age related senescent changes. Objective Vitals Vital Signs Date Temp Pulse Resp B/P (MAP) Pulse Ox O2 O2 Flow FiO2 Time Delivery Rate 07/14/18 71 04:00 07/14/18 98.5 20 123/60 99 Room Air 03:40 (81) 07/14/18 2.0 02:16 07/14/18 28 02:16 Intake and Output 07/13/18 07/13/18 07/14/18 1515:00 23:00 07:00 IntakeIntake Total 960 ml 400 ml OutputOutput Total 1100 ml 1500 ml BalanceBalance -140 ml -1100 ml Results/Medications Result Diagram: 07/13/18 0500 07/13/18 0514 Results 24 hrs Laboratory Tests Test 07/13/18 11:38 07/13/18 16:50 07/13/18 20:50 07/14/18 02:28 Bedside Glucose 111 156 165 134 Test 07/14/18 07:19 Bedside Glucose 86 Home Meds Active Scripts Carvedilol* (Carvedilol*) 6.25 Mg Tablet, 6.25 MG PO BID for 60 Days, #120 TAB Prov:BHARATH KING MD 04/13/17 Reported Medications Insulin Glargine* (Lantus*) 100 Unit/Ml Soln, 30 UNIT SC DAILY, #1 VIAL 04/05/17 Aspirin (Low Dose Aspirin) 81 Mg Tablet.dr, 81 MG PO DAILY, #30 TAB 04/05/17 Atorvastatin Calcium* (Atorvastatin Calcium*) 20 Mg Tablet, 20 MG PO QHS, #30 TAB 04/05/17 Amlodipine Besylate* (Amlodipine Besylate*) 10 Mg Tablet, 10 MG PO DAILY, #30 TAB 04/05/17 Medications Current Medications IV Flush (NS 3 ml) 3 ml PER PROTOCOL IV ; Start 07/06/18 at 13:00 Ondansetron HCl (Zofran Inj) 4 mg Q6H PRN IV NAUSEA/VOMITING Last administered on 07/10/18at 16:48; Admin Dose 4 MG; Start 07/06/18 at 13:00 Aspirin (Aspirin) 81 mg DAILY PO Last administered on 07/13/18at 07:50; Admin Dose 81 MG; Start 07/07/18 at 09:00 Nitroglycerin (Nitroglycerin (Sl Tab) 0.4 Mg) 1 tab Q5M PRN SL .CHEST PAIN; Start 07/06/18 at 13:00 Acetaminophen (Tylenol Tab) 650 mg Q6H PRN PO .PAIN 1-3 OR TEMP; Start 07/06/18 at 13:00 Acetaminophen/ Hydrocodone Bitart ([place] (5/325)) 1 tab Q6H PRN PO .PAIN 4-6 Last administered on 07/10/18at 12:00; Admin Dose 1 TAB; Start 07/06/18 at 13:00 Famotidine (Pepcid) 20 mg DAILY PO Last administered on 07/13/18at 07:51; Admin Dose 20 MG; Start 07/06/18 at 14:00 Diagnostic Test (Pha) (Accu-Chek) 1 ea 02 XX Last administered on 07/14/18at 02:30; Admin Dose 1 EA; Start 07/07/18 at 02:00 Insulin Glargine (Lantus) 19 units DAILY@2000 SC Last administered on 07/13/18at 20:53; Admin Dose 19 UNITS; Start 07/06/18 at 20:00 Insulin Aspart (Novolog Insulin Pen) 5 unit WITH MEALS SC Last administered on 07/14/18at 07:44; Admin Dose 5 UNIT; Start 07/06/18 at 18:00 Insulin Aspart (Novolog Insulin Pen) NOVOLOG *MILD* ALGORITHM WITH MEALS BEDTIME SC Last administered on 07/13/18 16:55; Admin Dose 1 UNIT; Start 07/06/18 at 18:00 Miscellaneous Information 1 ea NOTE XX ; Start 07/06/18 at 14:30 Glucose (Glutose) 15 gm Q15M PRN PO DECREASED GLUCOSE; Start 07/06/18 at 14:30 Glucose (Glutose) 22.5 gm Q15M PRN PO DECREASED GLUCOSE; Start 07/06/18 at 14:30 Dextrose (D50w Syringe) 25 ml Q15M PRN IV DECREASED GLUCOSE; Start 07/06/18 at 14:30 Dextrose (D50w Syringe) 50 ml Q15M PRN IV DECREASED GLUCOSE; Start 07/06/18 at 14:30 Glucagon (Glucagen) 1 mg Q15M PRN IM DECREASED GLUCOSE; Start 07/06/18 at 14:30 Glucose (Glutose) 15 gm Q15M PRN BUCCAL DECREASED GLUCOSE; Start 07/06/18 at 14:30 Labetalol HCl (Labetalol) 10 mg Q4 PRN IV sbp >160 Last administered on 07/09/18at 04:19; Admin Dose 10 MG; Start 07/06/18 at 15:00 Atorvastatin Calcium (Lipitor) 80 mg HS PO Last administered on 07/13/18 20:55; Admin Dose 80 MG; Start 07/06/18 at 21:00 Isosorbide Dinitrate (Isordil) 20 mg TID PO Last administered on 07/13/18at 20:56; Admin Dose 20 MG; Start 07/06/18 at 21:00 Carvedilol (Coreg) 3.125 mg BID PO Last administered on 07/13/18 20:56; Admin Dose 3.125 MG; Start 07/08/18 at 09:00 Hydralazine HCl (Apresoline) 50 mg TID PO Last administered on 07/13/18 20:56; Admin Dose 50 MG; Start 07/08/18 at 09:00 Morphine Sulfate (morphine) 6 mg Q4H PRN PO SEVERE PAIN LEVEL 7-10 Last administered on 07/10/18 16:48; Admin Dose 6 MG; Start 07/08/18 at 22:00 Acetylcysteine (Nac) 600 mg BID PO Last administered on 07/13/18 20:55; Admin Dose 600 MG; Start 07/09/18 at 09:00 Amlodipine Besylate (Norvasc) 10 mg DAILY PO Last administered on 07/13/18 07:51; Admin Dose 10 MG; Start 07/09/18 at 09:00 Ticagrelor (Brilinta) 90 mg BID PO Last administered on 07/13/18 20:53; Admin Dose 90 MG; Start 07/10/18 at 09:00 Albuterol/ Ipratropium (Duoneb) 3 ml Q6H RESP THERAPY HHN Last administered on 07/14/18 02:15; Admin Dose 3 ML; Start 07/12/18 at 16:30 Albuterol/ Ipratropium (Duoneb) 3 ml Q6H RESP THERAPY PRN HHN wheezing; Start 07/12/18 at 16:30 Ranolazine (Ranexa) 500 mg Q12 PO Last administered on 07/13/18 20:55; Admin Dose 500 MG; Start 07/12/18 at 21:00 Heparin Sodium (Porcine) (Heparin (1000 Units/ml)) 4,000 unit PER PROTOCOL PRN IV aPTT<47; Start 07/12/18 at 19:00 Heparin Sodium (Porcine) 250 ml @ 10 mls/hr PER PROTOCOL IV Last administered on 07/12/18 20:23; Admin Dose 10 MLS/HR; Start 07/12/18 at 19:30; Status Hold Polyethylene Glycol (Miralax) 17 gm DAILY PRN NGT CONSTIPATION Last administered on 07/13/18 21:00; Admin Dose 17 GM; Start 07/13/18 at 18:00 Assessment/Plan Hospital Course (Demo Recall) 1. Non-ST elevation myocardial infarction 2. Coronary artery disease with history of previous MIs 3. History of PCI 4. Hypertension 5. Diabetes 6. Congestive heart failure class IV on arrival 7. Dyslipidemia 8. Active smoker and possibly COPD 9. Renal failure acute on chronic 10. Episode of 2-1 AV block so far asymptomatic Recommendations: Aspirin and Brilinta will be continued Low-dose carvedilol to 3.125 p.o. twice daily and continue hydralazine to his regimen. Nitroglycerin to be continued as well Continue with statins Ranexa has been added as well Off of any SAMANTHA inhibitor or ARB due to his renal insufficiency Follow-up renal function. Patient also has significant stenosis of his left circumflex artery stent. We will plan for possibly perform PCI of this lesion once his renal function improves. However unfortunately so far renal function is worsening. Discussed with renal who decided to hold off on it for now until his renal function is stabilized/improved Thank you for his referral. We will continue to follow along with you, until patient is discharged and to follow-up with his regular hearing therapy director Dr.Fakheri JEANNIE FREITAS MD [facility] JEANNIE FREITAS MD Jul 14, 2018 07:50
[2018-07-14] MEDS: FAMOTIDINE 20 MG TAB PO SCH (08:02)
[2018-07-14] MEDS: ASPIRIN 81 MG TAB PO SCH (08:02)
[2018-07-14] MEDS: POLYETHYLENE GLYCOL 17 GM PACKET NGT PRN (08:02)
[2018-07-14] MEDS: RANOLAZINE (SR) 500 MG TAB PO SCH ×2 (08:02→20:32)
[2018-07-14] MEDS: ACETYLCYSTEINE 600 MG CAP PO SCH ×2 (08:03→20:32)
[2018-07-14] MEDS: ISOSORBIDE DINITRATE 20 MG TAB PO SCH ×3 (08:03→20:31)
[2018-07-14] MEDS: AMLODIPINE 10 MG TAB PO SCH (08:03)
[2018-07-14] MEDS: TICAGRELOR 90 MG TABLET PO SCH ×2 (08:07→21:35)
--- NOTE | 2018-07-14 08:46 | PN ---
DATE: 07/14/2018 SUBJECTIVE: The patient is stable. No events overnight. No fevers, chills, nausea, vomiting. OBJECTIVE: VITAL SIGNS: Blood pressure 120/58, respirations 16, pulse 84, temperature 98.8. HEENT: Head is normocephalic. NECK: Supple. HEART: Regular rate. LUNGS: Show diminished breath sounds at the base. ABDOMEN: Soft, nontender to palpation without rebound or guarding. EXTREMITIES: Negative for clubbing, cyanosis, no edema. DERMATOLOGIC: No rashes. MUSCULOSKELETAL: No joint effusions. NEUROLOGIC: No change in exam. MEDICATIONS: The patient's medications have been reviewed. LABORATORY DATA: Shows sodium 134, potassium 4.7, chloride 109, BUN 52, creatinine 3.87 phosphorus 6 .5. White count 7.4, hemoglobin 8.2, platelet count 188. ASSESSMENT AND PLAN: 1. Nonoliguric acute kidney injury on top of chronic kidney disease stage IV. Etiology of acute kid bushra injury is secondary to contrast-associated nephropathy. The patient's renal function continues t o fluctuate, further declined in the last 24 hours. The patient may be entering maintenance phase of acute tubular necrosis. At this point, no signs of uremia. No immediate need for renal placement t herapy. If possible, would continue to defer any further contrast studies in the setting of acute ki dney injury. 2. Chronic kidney disease with nephrotic range proteinuria. Etiology is likely secondary to diabeti c nephropathy. The patient's serological workup has been negative to date. At this point, we will c ontinue to treat acute kidney injury as stated above. Continue disease factor modification. 3. Diabetes. Continue current insulin regimen. 4. Anemia. Monitor hemoglobin and hematocrit levels. 5. Mineral bone disorder. Monitor calcium and phosphorus levels. 6. Coronary artery disease status post PCI to the RCA. The patient does have ongoing severe stenosi s of left circumflex, which likely will need intervention. However, in the setting of acute kidney i njury and possible contrast-associated nephropathy, would defer if possible. Risks and benefits have been explained to the patient. Case has been discussed with cardiology. If, however, an interventi on is necessary, would hydrate prior and we will monitor closely. 7. Hypertension. Continue current blood pressure regimen. Defer any SAMANTHA inhibitor, ARBS, avoid hem odynamic fluctuations. Dictated By: GRAEME MARTINEZ/COLLINS Conf#: [id number] DID#: [id number] CC: SCOT MCKOEN MD;*EndCC*
--- NOTE | 2018-07-14 08:51 | PN ---
Date/Time of Note Date/Time of Note DATE: 07/14/18 TIME: 08:51 Assessment/Plan VTE Prophylaxis Risk score (from Ns)>0 risk: 5 SCD applied (from Ns): Yes Pharmacological prophylaxis: other Pharm contraindication: low risk/ambulating Lines/Catheters IV [facility]ter Type (from [facility] [place] Urinary Cath still in place: No Assessment/Plan Assessment/Plan 1. Non-ST elevated CO s/p PCI - Patient remains stable. Continue on brilinta and aspirin. - Cardiology on board and appreciate recommendations. Will need repeat PCI given stenosis of left circumflex stent prior to discharge once ADITHYA resolves - Patient underwent cardiac cath received stent x3 in the RCA 2. Acute kidney injury on CKD - Nephrology consultation appreciate. Patient in maintenance phase of ATN. Will continue monitoring for improvement and avoid nephrotoxic agents at this time. Will need to hold off on repeat PCI 3. Anemia - continues to fluctuate but no active bleeding appreciate. Will continue to monitor given on Brilinta and aspirin 4. Diabetes mellitus - Insulin while in house 5. Hypertension - stable 6. JUAN JOSÉ - will need outpatient pulm follow up for sleep study - CPAP qhs 7. Disposition - Continue current treatment and monitor for improvement in renal function - Will need repeat PCI prior to discharge Result Diagram: 07/13/18 0500 07/14/18 0611 Results 24hrs Laboratory Tests Test 07/13/18 11:38 07/13/18 16:50 07/13/18 20:50 07/14/18 02:28 Bedside Glucose 111 156 165 134 Test 07/14/18 06:11 07/14/18 07:19 Sodium Level 134 L Potassium Level 4.7 Chloride Level 109 Carbon Dioxide Level 17 L Anion Gap 8 Blood Urea Nitrogen 52 H Creatinine 3.87 H Est Glomerular Filtrat 16 L Rate mL/min Glucose Level 79 Calcium Level 8.4 Phosphorus Level 6.5 H Magnesium Level 2.0 Bedside Glucose 86 Subjective 24 Hr Interval Summary Free Text/Dictation Patient doing well and has no acute issues. Did have some shortness of breath with ambulation last night but has resolved. Denies any chest pain, dizziness, palpitations, or LOC. Exam/Review of Systems Exam Vitals Vital Signs Date Temp Pulse Resp B/P (MAP) Pulse Ox O2 O2 Flow FiO2 Time Delivery Rate 07/14/18 71 08:43 07/14/18 98.8 16 120/58 97 07:59 (78) 07/14/18 Room Air 07:58 07/14/18 2.0 02:16 07/14/18 28 02:16 Intake and Output 07/13/18 07/13/18 07/14/18 1515:00 23:00 07:00 IntakeIntake Total 960 ml 400 ml OutputOutput Total 1100 ml 1500 ml BalanceBalance -140 ml -1100 ml Exam General: Patient is walking around unit. no acute distress Head: Normocephalic atraumatic Neck: Supple Respiratory: Clear to auscultation bilaterally. no wheezing or rhonchi Cardiovascular: regular rate and rhythm, no obvious murmurs Gastrointestinal: soft, non-tender to palpation, bowel sounds heard. Neurological: Moves all extremities spontaneously Skin: No new skin lesions Results Results 24hrs Laboratory Tests Test 07/13/18 11:38 07/13/18 16:50 07/13/18 20:50 07/14/18 02:28 Bedside Glucose 111 156 165 134 Test 07/14/18 06:11 07/14/18 07:19 Sodium Level 134 L Potassium Level 4.7 Chloride Level 109 Carbon Dioxide Level 17 L Anion Gap 8 Blood Urea Nitrogen 52 H Creatinine 3.87 H Est Glomerular Filtrat 16 L Rate mL/min Glucose Level 79 Calcium Level 8.4 Phosphorus Level 6.5 H Magnesium Level 2.0 Bedside Glucose 86 Medications Medication Current Medications IV Flush (NS 3 ml) 3 ml PER PROTOCOL IV ; Start 07/06/18 at 13:00 Ondansetron HCl (Zofran Inj) 4 mg Q6H PRN IV NAUSEA/VOMITING Last administered on 07/10/18at 16:48; Admin Dose 4 MG; Start 07/06/18 at 13:00 Aspirin (Aspirin) 81 mg DAILY PO Last administered on 07/14/18at 08:02; Admin Dose 81 MG; Start 07/07/18 at 09:00 Nitroglycerin (Nitroglycerin (Sl Tab) 0.4 Mg) 1 tab Q5M PRN SL .CHEST PAIN; St art 07/06/18 at 13:00 Acetaminophen (Tylenol Tab) 650 mg Q6H PRN PO .PAIN 1-3 OR TEMP; Start 07/06/18 at 13:00 Acetaminophen/ Hydrocodone Bitart ([place] (5/325)) 1 tab Q6H PRN PO .PAIN 4-6 Last administered on 07/10/18at 12:00; Admin Dose 1 TAB; Start 07/06/18 at 13:00 Famotidine (Pepcid) 20 mg DAILY PO Last administered on 07/14/18 08:02; Admin Dose 20 MG; Start 07/06/18 at 14:00 Diagnostic Test (Pha) (Accu-Chek) 1 ea 02 XX Last administered on 07/14/18at 02:30; Admin Dose 1 EA; Start 07/07/18 at 02:00 Insulin Glargine (Lantus) 19 units DAILY@2000 SC Last administered on 07/13/18 20:53; Admin Dose 19 UNITS; Start 07/06/18 at 20:00 Insulin Aspart (Novolog Insulin Pen) 5 unit WITH MEALS SC Last administered on 07/14/18 07:44; Admin Dose 5 UNIT; Start 07/06/18 at 18:00 Insulin Aspart (Novolog Insulin Pen) NOVOLOG *MILD* ALGORITHM WITH MEALS BEDTIME SC Last administered on 07/13/18at 16:55; Admin Dose 1 UNIT; Start 07/06/18 at 18:00 Miscellaneous Information 1 ea NOTE XX ; Start 07/06/18 at 14:30 Glucose (Glutose) 15 gm Q15M PRN PO DECREASED GLUCOSE; Start 07/06/18 at 14:30 Glucose (Glutose) 22.5 gm Q15M PRN PO DECREASED GLUCOSE; Start 07/06/18 at 14:30 Dextrose (D50w Syringe) 25 ml Q15M PRN IV DECREASED GLUCOSE; Start 07/06/18 at 14:30 Dextrose (D50w Syringe) 50 ml Q15M PRN IV DECREASED GLUCOSE; Start 07/06/18 at 14:30 Glucagon (Glucagen) 1 mg Q15M PRN IM DECREASED GLUCOSE; Start 07/06/18 at 14:30 Glucose (Glutose) 15 gm Q15M PRN BUCCAL DECREASED GLUCOSE; Start 07/06/18 at 14:30 Labetalol HCl (Labetalol) 10 mg Q4 PRN IV sbp >160 Last administered on 07/09/18at 04:19; Admin Dose 10 MG; Start 07/06/18 at 15:00 Atorvastatin Calcium (Lipitor) 80 mg HS PO Last administered on 07/13/18 20:55; Admin Dose 80 MG; Start 07/06/18 at 21:00 Isosorbide Dinitrate (Isordil) 20 mg TID PO Last administered on 07/14/18 08:03; Admin Dose 20 MG; Start 07/06/18 at 21:00 Carvedilol (Coreg) 3.125 mg BID PO Last administered on 07/14/18 08:03; Admin Dose 3.125 MG; Start 07/08/18 at 09:00 Hydralazine HCl (Apresoline) 50 mg TID PO Last administered on 07/14/18 08:03; Admin Dose 50 MG; Start 07/08/18 at 09:00 Morphine Sulfate (morphine) 6 mg Q4H PRN PO SEVERE PAIN LEVEL 7-10 Last administered on 07/10/18 16:48; Admin Dose 6 MG; Start 07/08/18 at 22:00 Acetylcysteine (Nac) 600 mg BID PO Last administered on 07/14/18 08:03; Admin Dose 600 MG; Start 07/09/18 at 09:00 Amlodipine Besylate (Norvasc) 10 mg DAILY PO Last administered on 07/14/18 08:03; Admin Dose 10 MG; Start 07/09/18 at 09:00 Ticagrelor (Brilinta) 90 mg BID PO Last administered on 07/14/18 08:07; Admin Dose 90 MG; Start 07/10/18 at 09:00 Albuterol/ Ipratropium (Duoneb) 3 ml Q6H RESP THERAPY HHN Last administered on 07/14/18 02:15; Admin Dose 3 ML; Start 07/12/18 at 16:30 Albuterol/ Ipratropium (Duoneb) 3 ml Q6H RESP THERAPY PRN HHN wheezing; Start 07/12/18 at 16:30 Ranolazine (Ranexa) 500 mg Q12 PO Last administered on 07/14/18 08:02; Admin Dose 500 MG; Start 07/12/18 at 21:00 Heparin Sodium (Porcine) (Heparin (1000 Units/ml)) 4,000 unit PER PROTOCOL PRN IV aPTT<47; Start 07/12/18 at 19:00 Heparin Sodium (Porcine) 250 ml @ 10 mls/hr PER PROTOCOL IV Last administered on 07/12/18at 20:23; Admin Dose 10 MLS/HR; Start 07/12/18 at 19:30; Status Hold Polyethylene Glycol (Miralax) 17 gm DAILY PRN NGT CONSTIPATION Last administered on 07/14/18at 08:02; Admin Dose 17 GM; Start 07/13/18 at 18:00 AVELINO WHITE MD Jul 14, 2018 08:51
--- NOTE | 2018-07-14 18:45 | NUR ---
EOSS: Pt in bed. No complaints. Not in distress. Call light in reach. Bed locked in lowest position with 2 side rails raised. No issues during shift. All needs met. IV intact. Pt turns self. Pt stable. Family at bedside. Pt is more awake and alert. Pt and family request bed alarm to be off at this time. Pt has steady gait. Family at bedside.
[2018-07-14] MEDS ORDERED: SENNA TAB PO PRN (19:30)
[2018-07-14] MEDS: ATORVASTATIN 80 MG TAB PO SCH (20:32)
[2018-07-14] MEDS: INSULIN GLARGINE [LANTus] (100 UNITS/ML) SYG SC SCH (21:35)
[2018-07-15] VITALS (14 sets, daily range): BP systolic 112–145; BP diastolic 59–74; PULSE 64–99; RESP 16–18
[2018-07-15] MEDS: ALBUTEROL/IPRATROPIUM (NEB) 3 ML AMP HHN SCH ×4 (01:25→19:52)
[2018-07-15] MEDS: ACCU-CHEK XX SCH (02:00)
--- NOTE | 2018-07-15 06:02 | NUR ---
END OF SHIFT REPORT HAD 2 EPISODES OF EPISTAXIS LAST NIGHT, SMALL AMOUNT. PUT ON CPAP LAST NIGHT.
[2018-07-15] MEDS: INSULIN ASPART [NOVOLOG] 3 ML PEN SC SCH ×7 (07:28→20:42)
--- NOTE | 2018-07-15 08:20 | PN ---
Date/Time of Note Date/Time of Note DATE: 07/15/18 TIME: 08:20 Assessment/Plan VTE Prophylaxis Risk score (from Ns)>0 risk: 5 SCD applied (from Ns): Yes Pharmacological prophylaxis: other Lines/Catheters IV [facility] [place] [facility] Urinary Cath still in place: No Assessment/Plan Assessment/Plan 1. Non-ST elevated RI s/p PCI - Patient remains stable. Continue on Brilinta and aspirin. Unable to give heparin given multiple episodes of epistaxis - Cardiology on board and appreciate recommendations. Will need repeat PCI given stenosis of left circumflex stent prior to discharge once ADITHYA resolves - Patient underwent cardiac cath received stent x3 in the RCA 2. Acute kidney injury on CKD - Nephrology consultation appreciated. Patients renal function worsened this am and will need to continue holding off PCI at this time. If renal function does continue to worsen and PCI needed, HD may need to be initiated - will continue monitoring and avoid nephrotoxic agents 3. Anemia - continues to fluctuate but no active bleeding appreciate. Will continue to monitor given on Brilinta and aspirin 4. Diabetes mellitus - Insulin while in house 5. Hypertension - stable 6. JUAN JOSÉ - will need outpatient pulm follow up for sleep study - refusing CPAP 7. Disposition - Continue current treatment and monitor for improvement in renal function - PCI needs to be performed prior to discharge home given occlusion of left circumflex Result Diagram: 07/15/18 0529 07/15/1829 Results 24hrs Laboratory Tests Test 07/14/18 11:34 07/14/18 16:43 07/14/18 20:25 07/15/18 01:54 Bedside Glucose 128 120 201 147 Test 07/15/18 05:29 07/15/18 07:27 White Blood Count 8.6 Red Blood Count 3.03 L Hemoglobin 8.6 L Hematocrit 27.0 L Mean Corpuscular Volume 89.1 Mean Corpuscular 28.4 L Hemoglobin Mean Corpuscular 31.9 L Hemoglobin Concent Red Cell Distribution 13.4 Width Platelet Count 260 # Mean Platelet Volume 11.1 H Immature Granulocytes % 0.500 H Neutrophils % 71.1 Lymphocytes % 15.6 Monocytes % 10.5 Eosinophils % 2.1 Basophils % 0.2 Nucleated Red Blood 0.0 Cells % Immature Granulocytes # 0.040 H Neutrophils # 6.1 Lymphocytes # 1.3 Monocytes # 0.9 Eosinophils # 0.2 Basophils # 0.0 Nucleated Red Blood 0.0 Cells # Sodium Level 136 Potassium Level 4.6 Chloride Level 110 Carbon Dioxide Level 18 L Anion Gap 8 Blood Urea Nitrogen 59 H Creatinine 4.58 H Est Glomerular Filtrat 13 L Rate mL/min Glucose Level 142 # Calcium Level 8.6 Phosphorus Level 6.2 H Magnesium Level 2.1 Bedside Glucose 138 Subjective 24 Hr Interval Summary Free Text/Dictation Patient states he does not like the CPAP at night and waking up confused and not sleeping well. Patient also had episode of epistaxis which resolved. No acute overnight events. Renal function continues to worsen. Exam/Review of Systems Exam Vitals Vital Signs Date Temp Pulse Resp B/P (MAP) Pulse Ox O2 O2 Flow FiO2 Time Delivery Rate 07/15/18 98.0 64 16 130/74 97 07:58 (92) 07/15/18 28 04:13 07/14/18 2.0 17:31 07/14/18 Nasal 14:14 Cannula Intake and Output 07/14/18 07/14/18 07/15/18 1515:00 23:00 07:00 IntakeIntake Total 600 ml 500 ml OutputOutput Total 1400 ml BalanceBalance -800 ml 500 ml Exam General: Patient is walking around unit. no acute distress Head: Normocephalic atraumatic Neck: Supple Respiratory: Clear to auscultation bilaterally. no wheezing or rhonchi Cardiovascular: regular rate and rhythm, no obvious murmurs Gastrointestinal: soft, non-tender to palpation, bowel sounds heard. Neurological: Moves all extremities spontaneously Skin: No new skin lesions Results Results 24hrs Laboratory Tests Test 07/14/18 11:34 07/14/18 16:43 07/14/18 20:25 07/15/18 01:54 Bedside Glucose 128 120 201 147 Test 07/15/18 05:29 07/15/18 07:27 White Blood Count 8.6 Red Blood Count 3.03 L Hemoglobin 8.6 L Hematocrit 27.0 L Mean Corpuscular Volume 89.1 Mean Corpuscular 28.4 L Hemoglobin Mean Corpuscular 31.9 L Hemoglobin Concent Red Cell Distribution 13.4 Width Platelet Count 260 # Mean Platelet Volume 11.1 H Immature Granulocytes % 0.500 H Neutrophils % 71.1 Lymphocytes % 15.6 Monocytes % 10.5 Eosinophils % 2.1 Basophils % 0.2 Nucleated Red Blood 0.0 Cells % Immature Granulocytes # 0.040 H Neutrophils # 6.1 Lymphocytes # 1.3 Monocytes # 0.9 Eosinophils # 0.2 Basophils # 0.0 Nucleated Red Blood 0.0 Cells # Sodium Level 136 Potassium Level 4.6 Chloride Level 110 Carbon Dioxide Level 18 L Anion Gap 8 Blood Urea Nitrogen 59 H Creatinine 4.58 H Est Glomerular Filtrat 13 L Rate mL/min Glucose Level 142 # Calcium Level 8.6 Phosphorus Level 6.2 H Magnesium Level 2.1 Bedside Glucose 138 Medications Medication Current Medications IV Flush (NS 3 ml) 3 ml PER PROTOCOL IV ; Start 07/06/18 at 13:00 Ondansetron HCl (Zofran Inj) 4 mg Q6H PRN IV NAUSEA/VOMITING Last administered on 07/10/18 16:48; Admin Dose 4 MG; Start 07/06/18 at 13:00 Aspirin (Aspirin) 81 mg DAILY PO Last administered on 07/14/18 08:02; Admin Dose 81 MG; Start 07/07/18 at 09:00 Nitroglycerin (Nitroglycerin (Sl Tab) 0.4 Mg) 1 tab Q5M PRN SL .CHEST PAIN; Start 07/06/18 at 13:00 Acetaminophen (Tylenol Tab) 650 mg Q6H PRN PO .PAIN 1-3 OR TEMP; Start 07/06/18 at 13:00 Acetaminophen/ Hydrocodone Bitart ([place] (5/325)) 1 tab Q6H PRN PO .PAIN 4-6 Last administered on 07/10/18 12:00; Admin Dose 1 TAB; Start 07/06/18 at 13:00 Famotidine (Pepcid) 20 mg DAILY PO Last administered on 07/14/18 08:02; Admin Dose 20 MG; Start 07/06/18 at 14:00 Diagnostic Test (Pha) (Accu-Chek) 1 ea 02 XX Last administered on 07/14/18 02:30; Admin Dose 1 EA; Start 07/07/18 at 02:00 Insulin Glargine (Lantus) 19 units DAILY@2000 SC Last administered on 07/14/18 21:35; Admin Dose 19 UNITS; Start 07/06/18 at 20:00 Insulin Aspart (Novolog Insulin Pen) 5 unit WITH MEALS SC Last administered on 07/15/18 07:48; Admin Dose 5 UNIT; Start 07/06/18 at 18:00 Insulin Aspart (Novolog Insulin Pen) NOVOLOG *MILD* ALGORITHM WITH MEALS BEDTIME SC Last administered on 07/14/18 21:35; Admin Dose 1 UNIT; Start 07/06/18 at 18:00 Miscellaneous Information 1 ea NOTE XX ; Start 07/06/18 at 14:30 Glucose (Glutose) 15 gm Q15M PRN PO DECREASED GLUCOSE; Start 07/06/18 at 14:30 Glucose (Glutose) 22.5 gm Q15M PRN PO DECREASED GLUCOSE; Start 07/06/18 at 14:30 Dextrose (D50w Syringe) 25 ml Q15M PRN IV DECREASED GLUCOSE; Start 07/06/18 at 14:30 Dextrose (D50w Syringe) 50 ml Q15M PRN IV DECREASED GLUCOSE; Start 07/06/18 at 14:30 Glucagon (Glucagen) 1 mg Q15M PRN IM DECREASED GLUCOSE; Start 07/06/18 at 14:30 Glucose (Glutose) 15 gm Q15M PRN BUCCAL DECREASED GLUCOSE; Start 07/06/18 at 14:30 Labetalol HCl (Labetalol) 10 mg Q4 PRN IV sbp >160 Last administered on 07/09/18at 04:19; Admin Dose 10 MG; Start 07/06/18 at 15:00 Atorvastatin Calcium (Lipitor) 80 mg HS PO Last administered on 07/14/18 20:32; Admin Dose 80 MG; Start 07/06/18 at 21:00 Isosorbide Dinitrate (Isordil) 20 mg TID PO Last administered on 07/14/18 20:31; Admin Dose 20 MG; Start 07/06/18 at 21:00 Carvedilol (Coreg) 3.125 mg BID PO Last administered on 07/14/18 20:33; Admin Dose 3.125 MG; Start 07/08/18 at 09:00 Hydralazine HCl (Apresoline) 50 mg TID PO Last administered on 07/14/18 20:31; Admin Dose 50 MG; Start 07/08/18 at 09:00 Morphine Sulfate (morphine) 6 mg Q4H PRN PO SEVERE PAIN LEVEL 7-10 Last administered on 07/10/18 16:48; Admin Dose 6 MG; Start 07/08/18 at 22:00 Acetylcysteine (Nac) 600 mg BID PO Last administered on 07/14/18 20:32; Admin Dose 600 MG; Start 07/09/18 at 09:00 Amlodipine Besylate (Norvasc) 10 mg DAILY PO Last administered on 07/14/18 08:03; Admin Dose 10 MG; Start 07/09/18 at 09:00 Ticagrelor (Brilinta) 90 mg BID PO Last administered on 07/14/18 21:35; Admin Dose 90 MG; Start 07/10/18 at 09:00 Albuterol/ Ipratropium (Duoneb) 3 ml Q6H RESP THERAPY HHN Last administered on 07/15/18 01:25; Admin Dose 3 ML; Start 07/12/18 at 16:30 Albuterol/ Ipratropium (Duoneb) 3 ml Q6H RESP THERAPY PRN HHN wheezing; Start 07/12/18 at 16:30 Ranolazine (Ranexa) 500 mg Q12 PO Last administered on 07/14/18 20:32; Admin Dose 500 MG; Start 07/12/18 at 21:00 Heparin Sodium (Porcine) (Heparin (1000 Units/ml)) 4,000 unit PER PROTOCOL PRN IV aPTT<47; Start 07/12/18 at 19:00 Heparin Sodium (Porcine) 250 ml @ 10 mls/hr PER PROTOCOL IV Last administered on 07/12/18 20:23; Admin Dose 10 MLS/HR; Start 07/12/18 at 19:30; Status Hold Polyethylene Glycol (Miralax) 17 gm DAILY PRN NGT CONSTIPATION Last administered on 07/14/18 08:02; Admin Dose 17 GM; Start 07/13/18 at 18:00 Senna (Senokot) 1 tab BID PRN PO CONSTIPATION; Start 07/14/18 at 19:30 AVELINO WHITE MD Jul 15, 2018 08:20
[2018-07-15] MEDS ORDERED: SALINE 0.65% 45 ML NAS SPRAY NASAL PRN (08:30)
[2018-07-15] MEDS: ASPIRIN 81 MG TAB PO SCH (08:53)
[2018-07-15] MEDS: ACETYLCYSTEINE 600 MG CAP PO SCH ×2 (08:54→20:40)
[2018-07-15] MEDS: ISOSORBIDE DINITRATE 20 MG TAB PO SCH ×3 (08:54→20:40)
[2018-07-15] MEDS: RANOLAZINE (SR) 500 MG TAB PO SCH ×2 (08:55→20:40)
[2018-07-15] MEDS: AMLODIPINE 10 MG TAB PO SCH (08:55)
[2018-07-15] MEDS: FAMOTIDINE 20 MG TAB PO SCH (08:55)
--- NOTE | 2018-07-15 08:56 | PN ---
DATE: 07/15/2018 SUBJECTIVE: The patient is stable, no events overnight. I did speak with the patient. Laboratory d jero showed worsening renal function. The patient denies any overt uremic signs or symptoms. The pat ient was made aware that if cardiac catheterization was necessary and if renal function should furthe r decline, that he would be initiated on dialysis. OBJECTIVE: VITAL SIGNS: Blood pressure is 130/74, respirations 16, pulse 64, temperature 98.0. HEENT: Head is normocephalic. NECK: Supple. HEART: Regular rate. LUNGS: Show diminished breath sounds at the base. ABDOMEN: Soft, nontender to palpation without rebound or guarding. EXTREMITIES: Negative for clubbing, cyanosis, no edema. DERMATOLOGIC: No rashes. MUSCULOSKELETAL: No joint effusion. NEUROLOGIC: No change in exam. MEDICATIONS: Reviewed. LABORATORY DATA: Shows sodium 136, potassium 4.6, chloride 110, BUN 59, creatinine 4.58. White coun t is 8.6, hemoglobin 8.6, platelet count is 260. ASSESSMENT AND PLAN: 1. Nonoliguric acute kidney injury on top of chronic kidney disease stage IV. Etiology of acute kid bushra injury was secondary to contrast-associated nephropathy. The patient's renal function appears to be in maintenance phase of acute tubular necrosis; however, renal function has declined in the last 24 hours. This may be due to hemodynamic fluctuations. At this point, would defer any contrast stud ies or cardiac catheterization if possible. Please note I did speak with the patient and patient's w mickey, informing them that if cardiac catheterization was absolutely necessary, that dialysis would be an option if renal function would further deteriorate. The patient and patient's voiced underst anding. At this point, we therefore continue current treatment plans, supportive care, renally dose all meds. 2. Chronic kidney disease with nephrotic range proteinuria. Etiology is secondary to diabetic nephr opathy. The patient's serologic workup has been negative to date. The patient is currently in acute kidney injury as stated above. We will continue current treatment plan. Continue disease factor mo dification. 3. Diabetes. Continue current insulin regimen. 4. Anemia. Monitor hemoglobin and hematocrit levels. 5. Mineral bone disorder. Monitor calcium and phosphatase levels. 6. Coronary artery disease, status post percutaneous coronary intervention to right coronary artery. If the patient continues to have ongoing disease of the left circumflex, will likely need intervent ion as stated above. Risks and benefits were explained to the patient and patient's family. We will continue medical management. Follow up with cardiology. 7. Hypertension. Continue current blood pressure regimen. Defer any SAMANTHA inhibitor or ARB at this t jamison. Dictated By: GRAEME BRANDT DO NR/NTS Conf#: [id number] DID#: [id number] CC: SCOT MCKEON MD;*EndCC*
[2018-07-15] MEDS: TICAGRELOR 90 MG TABLET PO SCH ×2 (08:57→21:09)
--- NOTE | 2018-07-15 09:13 | CONS ---
Consult Date/Type/Reason Admit Date/Time Jul 06, 2018 at 12:07 Initial Consult Date 07/06/18 Type of Consultation: cv Requesting Provider: SCOT MCKEON Date/Time of Note DATE: 07/15/18 TIME: 09:12 Subjective Interventional cardiology follow-up progress note Subjective: Discussed with the staff and . d/w physicians including DR Rausch. Tele was reviewed. Patient remains in normal sinus rhythm Patient with no chest pain or pressure now Patient with mild nosebleed last night No bleeding is reported. No groin pain. Events noted: Status post PCI of the right coronary artery using 3 drug-eluting stent on July 10, 2018. Objective: General: Obese gentleman no acute distress HEENT: NC/AT. pupils are equal. round. NECK: no stridor. CV: RRR. systolic murmur; no gallop or rubs. PULM: no wheezing . Mild rhonchi . GI: SOFT, NT, ND, no rebound or guarding Extremity: trace B/L LE edema. no clubbing. neuro: awake and alert, OX3. Psych: calm and pleasant rectal: deferred : normal EKG shows normal sinus rhythm. ST-T wave abnormalities suggestive of inferolateral ischemia Echocardiogram was reviewed which showed ejection fraction of 45% Chest x-ray shows: Mild cardiomegaly with pulmonary vascular congestion. Slightly more focal right lower lobe infiltrate. Chest x-ray done 07/12/2018 shows: The aorta is tortuous and atherosclerotic. The cardiomediastinal silhouette is otherwise mildly enlarged and is stable. Mild thickening of the minor fissure is suspected. The remaining lungs and pleural spaces are clear. The soft tissues and osseous structures demonstrate benign age related senescent changes. Objective Vitals Vital Signs Date Temp Pulse Resp B/P (MAP) Pulse Ox O2 O2 Flow FiO2 Time Delivery Rate 07/15/18 69 08:34 07/15/18 98.0 16 130/74 97 07:58 (92) 07/15/18 28 04:13 07/14/18 2.0 17:31 07/14/18 Nasal 14:14 Cannula Intake and Output 07/14/18 07/14/18 07/15/18 1515:00 23:00 07:00 IntakeIntake Total 600 ml 500 ml OutputOutput Total 1400 ml BalanceBalance -800 ml 500 ml Results/Medications Result Diagram: 07/15/18 0529 07/15/18 0529 Results 24 hrs Laboratory Tests Test 07/14/18 11:34 07/14/18 16:43 07/14/18 20:25 07/15/18 01:54 Bedside Glucose 128 120 201 147 Test 07/15/18 05:29 07/15/18 07:27 White Blood Count 8.6 Red Blood Count 3.03 L Hemoglobin 8.6 L Hematocrit 27.0 L Mean Corpuscular Volume 89.1 Mean Corpuscular 28.4 L Hemoglobin Mean Corpuscular 31.9 L Hemoglobin Concent Red Cell Distribution 13.4 Width Platelet Count 260 # Mean Platelet Volume 11.1 H Immature Granulocytes % 0.500 H Neutrophils % 71.1 Lymphocytes % 15.6 Monocytes % 10.5 Eosinophils % 2.1 Basophils % 0.2 Nucleated Red Blood 0.0 Cells % Immature Granulocytes # 0.040 H Neutrophils # 6.1 Lymphocytes # 1.3 Monocytes # 0.9 Eosinophils # 0.2 Basophils # 0.0 Nucleated Red Blood 0.0 Cells # Sodium Level 136 Potassium Level 4.6 Chloride Level 110 Carbon Dioxide Level 18 L Anion Gap 8 Blood Urea Nitrogen 59 H Creatinine 4.58 H Est Glomerular Filtrat 13 L Rate mL/min Glucose Level 142 # Calcium Level 8.6 Phosphorus Level 6.2 H Magnesium Level 2.1 Bedside Glucose 138 Home Meds Active Scripts Carvedilol* (Carvedilol*) 6.25 Mg Tablet, 6.25 MG PO BID for 60 Days, #120 TAB Prov:BHARATH KING MD 04/13/17 Reported Medications Insulin Glargine* (Lantus*) 100 Unit/Ml Soln, 30 UNIT SC DAILY, #1 VIAL 04/05/17 Aspirin (Low Dose Aspirin) 81 Mg Tablet.dr, 81 MG PO DAILY, #30 TAB 04/05/17 Atorvastatin Calcium* (Atorvastatin Calcium*) 20 Mg Tablet, 20 MG PO QHS, #30 TAB 04/05/17 Amlodipine Besylate* (Amlodipine Besylate*) 10 Mg Tablet, 10 MG PO DAILY, #30 TAB 04/05/17 Medications Current Medications IV Flush (NS 3 ml) 3 ml PER PROTOCOL IV ; Start 07/06/18 at 13:00 Ondansetron HCl (Zofran Inj) 4 mg Q6H PRN IV NAUSEA/VOMITING Last administered on 07/10/18 16:48; Admin Dose 4 MG; Start 07/06/18 at 13:00 Aspirin (Aspirin) 81 mg DAILY PO Last administered on 07/15/18 08:53; Admin Dose 81 MG; Start 07/07/18 at 09:00 Nitroglycerin (Nitroglycerin (Sl Tab) 0.4 Mg) 1 tab Q5M PRN SL .CHEST PAIN; Start 07/06/18 at 13:00 Acetaminophen (Tylenol Tab) 650 mg Q6H PRN PO .PAIN 1-3 OR TEMP; Start 07/06/18 at 13:00 Acetaminophen/ Hydrocodone Bitart ([place] (5/325)) 1 tab Q6H PRN PO .PAIN 4-6 Last administered on 07/10/18 12:00; Admin Dose 1 TAB; Start 07/06/18 at 13:00 Famotidine (Pepcid) 20 mg DAILY PO Last administered on 07/15/18 08:55; Admin Dose 20 MG; Start 07/06/18 at 14:00 Diagnostic Test (Pha) (Accu-Chek) 1 ea 02 XX Last administered on 07/14/18 02:30; Admin Dose 1 EA; Start 07/07/18 at 02:00 Insulin Glargine (Lantus) 19 units DAILY@2000 SC Last administered on 07/14/18 21:35; Admin Dose 19 UNITS; Start 07/06/18 at 20:00 Insulin Aspart (Novolog Insulin Pen) 5 unit WITH MEALS SC Last administered on 07/15/18 07:48; Admin Dose 5 UNIT; Start 07/06/18 at 18:00 Insulin Aspart (Novolog Insulin Pen) NOVOLOG *MILD* ALGORITHM WITH MEALS BEDTIME SC Last administered on 07/14/18 21:35; Admin Dose 1 UNIT; Start 07/06/18 at 18:00 Miscellaneous Information 1 ea NOTE XX ; Start 07/06/18 at 14:30 Glucose (Glutose) 15 gm Q15M PRN PO DECREASED GLUCOSE; Start 07/06/18 at 14:30 Glucose (Glutose) 22.5 gm Q15M PRN PO DECREASED GLUCOSE; Start 07/06/18 at 14:30 Dextrose (D50w Syringe) 25 ml Q15M PRN IV DECREASED GLUCOSE; Start 07/06/18 at 14:30 Dextrose (D50w Syringe) 50 ml Q15M PRN IV DECREASED GLUCOSE; Start 07/06/18 at 14:30 Glucagon (Glucagen) 1 mg Q15M PRN IM DECREASED GLUCOSE; Start 07/06/18 at 14:30 Glucose (Glutose) 15 gm Q15M PRN BUCCAL DECREASED GLUCOSE; Start 07/06/18 at 14:30 Labetalol HCl (Labetalol) 10 mg Q4 PRN IV sbp >160 Last administered on 07/09/18at 04:19; Admin Dose 10 MG; Start 07/06/18 at 15:00 Atorvastatin Calcium (Lipitor) 80 mg HS PO Last administered on 07/14/18 20:32; Admin Dose 80 MG; Start 07/06/18 at 21:00 Isosorbide Dinitrate (Isordil) 20 mg TID PO Last administered on 07/15/18at 08:54; Admin Dose 20 MG; Start 07/06/18 at 21:00 Carvedilol (Coreg) 3.125 mg BID PO Last administered on 07/15/18 08:55; Admin Dose 3.125 MG; Start 07/08/18 at 09:00 Hydralazine HCl (Apresoline) 50 mg TID PO Last administered on 07/15/18 08:54; Admin Dose 50 MG; Start 07/08/18 at 09:00 Morphine Sulfate (morphine) 6 mg Q4H PRN PO SEVERE PAIN LEVEL 7-10 Last administered on 07/10/18at 16:48; Admin Dose 6 MG; Start 07/08/18 at 22:00 Acetylcysteine (Nac) 600 mg BID PO Last administered on 07/15/18 08:54; Admin Dose 600 MG; Start 07/09/18 at 09:00 Amlodipine Besylate (Norvasc) 10 mg DAILY PO Last administered on 07/15/18 08:55; Admin Dose 10 MG; Start 07/09/18 at 09:00 Ticagrelor (Brilinta) 90 mg BID PO Last administered on 07/15/18 08:57; Admin Dose 90 MG; Start 07/10/18 at 09:00 Albuterol/ Ipratropium (Duoneb) 3 ml Q6H RESP THERAPY HHN Last administered on 07/15/18at 01:25; Admin Dose 3 ML; Start 07/12/18 at 16:30 Albuterol/ Ipratropium (Duoneb) 3 ml Q6H RESP THERAPY PRN HHN wheezing; Start 07/12/18 at 16:30 Ranolazine (Ranexa) 500 mg Q12 PO Last administered on 07/15/18at 08:55; Admin Dose 500 MG; Start 07/12/18 at 21:00 Heparin Sodium (Porcine) (Heparin (1000 Units/ml)) 4,000 unit PER PROTOCOL PRN IV aPTT<47; Start 07/12/18 at 19:00 Heparin Sodium (Porcine) 250 ml @ 10 mls/hr PER PROTOCOL IV Last administered on 07/12/18at 20:23; Admin Dose 10 MLS/HR; Start 07/12/18 at 19:30; Status Hold Polyethylene Glycol (Miralax) 17 gm DAILY PRN NGT CONSTIPATION Last administered on 07/14/18 08:02; Admin Dose 17 GM; Start 07/13/18 at 18:00 Senna (Senokot) 1 tab BID PRN PO CONSTIPATION; Start 07/14/18 at 19:30 Sodium Chloride (Deep Sea) 2 spray BID PRN NASAL congestion; Start 07/15/18 at 08:30 Assessment/Plan Hospital Course (Demo Recall) 1. Non-ST elevation myocardial infarction 2. Coronary artery disease with history of previous MIs 3. History of PCI 4. Hypertension 5. Diabetes 6. Congestive heart failure class IV on arrival 7. Dyslipidemia 8. Active smoker and possibly COPD 9. Renal failure acute on chronic: ATN 10. Episode of 2-1 AV block so far asymptomatic Recommendations: Aspirin and Brilinta will be continued Low-dose carvedilol to 3.125 p.o. twice daily and continue hydralazine to his regimen. Nitroglycerin to be continued as well Continue with statins Ranexa has been added as well Off of any SAMANTHA inhibitor or ARB due to his renal insufficiency Follow-up renal function. Patient also has significant stenosis of his left circumflex artery stent. We will plan for possibly perform PCI of this lesion once his renal function improves. However unfortunately so far renal function is worsening. Discussed with renal who decided to hold off on it for now until his renal function is stabilized/improved Thank you for his referral. We will continue to follow along with you, until patient is discharged and to follow-up with his regular visual merchandising assistant Dr.Fakheri JEANNIE FREITAS MD [facility] JEANNIE FREITAS MD Jul 15, 2018 09:13
[2018-07-15] MEDS: SALINE 0.65% 45 ML NAS SPRAY NASAL PRN (18:01)
--- NOTE | 2018-07-15 18:53 | NUR ---
EOSS: PT SITTING UP IN CHAIR WITH AT BEDSIDE. DENIES CHEST PAIN OR DISCOMFORT AT THIS TIME. NO S/S OR RESPIRATORY DISTRESS PT ON 2L VIA NC. PT CLEAN AND DRY. SEEN BY DR. WHITE, AND DR. BRANDT TODAY WITH ORDERS PLACED. PENDING LABS IN AM. FALL AND SAFETY PRECAUTIONS IMPLEMENTED, CALL LIGHT WITHIN REACH ABLE TO MAKE NEEDS KNOWN. BED IN LOWEST POSITION BRAKES LOCKED ROOM FREE OF CLUTTER. PERSONAL BELONGINGS PLACED CLOSE TO PATIENT. WILL ENDORSE TO CIRCLE BEVELER RN ACCORDINGLY
[2018-07-15] MEDS: ATORVASTATIN 80 MG TAB PO SCH (20:40)
[2018-07-15] MEDS: INSULIN GLARGINE [LANTus] (100 UNITS/ML) SYG SC SCH (21:09)
[2018-07-16] VITALS (11 sets, daily range): BP systolic 114–136; BP diastolic 63–70; PULSE 70–91; RESP 18–19
[2018-07-16] MEDS: ALBUTEROL/IPRATROPIUM (NEB) 3 ML AMP HHN SCH ×4 (01:47→21:18)
[2018-07-16] MEDS: ACCU-CHEK XX SCH (02:00)
[2018-07-16] MEDS: SALINE 0.65% 45 ML NAS SPRAY NASAL PRN (05:19)
--- NOTE | 2018-07-16 06:02 | NUR ---
END OF SHIFT REPORT HAD ONE EPISODE OF NOSE BLEED TODAY. OTHERWISE NO SIGNIFICANT CHANGE NOTED.
[2018-07-16] MEDS: INSULIN ASPART [NOVOLOG] 3 ML PEN SC SCH ×7 (08:00→21:00)
--- NOTE | 2018-07-16 08:24 | CONS ---
Consult Date/Type/Reason Admit Date/Time Jul 06, 2018 at 12:07 Initial Consult Date 07/06/18 Type of Consultation: cv Requesting Provider: SCOT MCEKON Date/Time of Note DATE: 07/16/18 TIME: 08:19 Subjective Interventional cardiology follow-up progress note Subjective: Discussed with the staff and . d/w physicians including DR Rausch. Tele was reviewed. Patient remains in normal sinus rhythm Patient with no chest pain or pressure now Patient with more nosebleed last night No bleeding is reported. No groin pain. Events noted: Status post PCI of the right coronary artery using 3 drug-eluting stent on July 10, 2018. Objective: General: Obese gentleman no acute distress HEENT: NC/AT. pupils are equal. round. NECK: no stridor. CV: RRR. systolic murmur; no gallop or rubs. PULM: no wheezing . Mild rhonchi . GI: SOFT, NT, ND, no rebound or guarding Extremity: trace B/L LE edema. no clubbing. neuro: awake and alert, OX3. Psych: calm and pleasant rectal: deferred : normal EKG shows normal sinus rhythm. ST-T wave abnormalities suggestive of inferolateral ischemia Echocardiogram was reviewed which showed ejection fraction of 45% Chest x-ray shows: Mild cardiomegaly with pulmonary vascular congestion. Slightly more focal right lower lobe infiltrate. Chest x-ray done 07/12/2018 shows: The aorta is tortuous and atherosclerotic. The cardiomediastinal silhouette is otherwise mildly enlarged and is stable. Mild thickening of the minor fissure is suspected. The remaining lungs and pleural spaces are clear. The soft tissues and osseous structures demonstrate benign age related senescent changes. Objective Vitals Vital Signs Date Temp Pulse Resp B/P (MAP) Pulse Ox O2 O2 Flow FiO2 Time Delivery Rate 07/16/18 74 08:18 07/16/18 97.5 18 136/63 95 07:45 (87) 07/16/18 21 01:48 07/15/18 2.0 13:55 07/15/18 Nasal 13:54 Cannula Intake and Output 07/15/18 07/15/18 07/16/18 1515:00 23:00 07:00 IntakeIntake Total 400 ml OutputOutput Total 1300 ml BalanceBalance -900 ml Results/Medications Result Diagram: 07/16/18 0512 07/16/1812 Results 24 hrs Laboratory Tests Test 07/15/18 11:08 07/15/18 17:16 07/15/18 20:13 07/16/18 05:12 Bedside Glucose 206 105 98 White Blood Count 8.2 Red Blood Count 2.88 L Hemoglobin 8.4 L Hematocrit 26.0 L Mean Corpuscular Volume 90.3 Mean Corpuscular 29.2 Hemoglobin Mean Corpuscular 32.3 Hemoglobin Concent Red Cell Distribution 13.4 Width Platelet Count 287 Mean Platelet Volume 11.2 H Immature Granulocytes % 0.200 Neutrophils % 71.5 Lymphocytes % 17.6 Monocytes % 8.1 Eosinophils % 2.1 Basophils % 0.5 Nucleated Red Blood 0.0 Cells % Immature Granulocytes # 0.020 Neutrophils # 5.9 Lymphocytes # 1.5 Monocytes # 0.7 Eosinophils # 0.2 Basophils # 0.0 Nucleated Red Blood 0.0 Cells # Sodium Level 138 Potassium Level 4.6 Chloride Level 109 Carbon Dioxide Level 18 L Anion Gap 11 Blood Urea Nitrogen 56 H Creatinine 4.45 H Est Glomerular Filtrat 13 L Rate mL/min Glucose Level 84 # Calcium Level 8.9 Phosphorus Level 5.9 H Magnesium Level 2.2 Home Meds Active Scripts Carvedilol* (Carvedilol*) 6.25 Mg Tablet, 6.25 MG PO BID for 60 Days, #120 TAB Prov:BHARATH KING MD 04/13/17 Reported Medications Insulin Glargine* (Lantus*) 100 Unit/Ml Soln, 30 UNIT SC DAILY, #1 VIAL 04/05/17 Aspirin (Low Dose Aspirin) 81 Mg Tablet.dr, 81 MG PO DAILY, #30 TAB 04/05/17 Atorvastatin Calcium* (Atorvastatin Calcium*) 20 Mg Tablet, 20 MG PO QHS, #30 TAB 04/05/17 Amlodipine Besylate* (Amlodipine Besylate*) 10 Mg Tablet, 10 MG PO DAILY, #30 TAB 04/05/17 Medications Current Medications IV Flush (NS 3 ml) 3 ml PER PROTOCOL IV ; Start 07/06/18 at 13:00 Ondansetron HCl (Zofran Inj) 4 mg Q6H PRN IV NAUSEA/VOMITING Last administered on 07/10/18at 16:48; Admin Dose 4 MG; Start 07/06/18 at 13:00 Aspirin (Aspirin) 81 mg DAILY PO Last administered on 07/15/18at 08:53; Admin Dose 81 MG; Start 07/07/18 at 09:00 Nitroglycerin (Nitroglycerin (Sl Tab) 0.4 Mg) 1 tab Q5M PRN SL .CHEST PAIN; Start 07/06/18 at 13:00 Acetaminophen (Tylenol Tab) 650 mg Q6H PRN PO .PAIN 1-3 OR TEMP; Start 07/06/18 at 13:00 Acetaminophen/ Hydrocodone Bitart ([place] (5/325)) 1 tab Q6H PRN PO .PAIN 4-6 Last administered on 07/10/18at 12:00; Admin Dose 1 TAB; Start 07/06/18 at 13:00 Famotidine (Pepcid) 20 mg DAILY PO Last administered on 07/15/18at 08:55; Admin Dose 20 MG; Start 07/06/18 at 14:00 Diagnostic Test (Pha) (Accu-Chek) 1 ea 02 XX Last administered on 07/14/18at 02:30; Admin Dose 1 EA; Start 07/07/18 at 02:00 Insulin Glargine (Lantus) 19 units DAILY@2000 SC Last administered on 07/15/18 21:09; Admin Dose 19 UNITS; Start 07/06/18 at 20:00 Insulin Aspart (Novolog Insulin Pen) 5 unit WITH MEALS SC Last administered on 07/15/18 18:02; Admin Dose 5 UNIT; Start 07/06/18 at 18:00 Insulin Aspart (Novolog Insulin Pen) NOVOLOG *MILD* ALGORITHM WITH MEALS BEDTIME SC Last administered on 07/15/18at 11:11; Admin Dose 2 UNIT; Start 07/06/18 at 18:00 Miscellaneous Information 1 ea NOTE XX ; Start 07/06/18 at 14:30 Glucose (Glutose) 15 gm Q15M PRN PO DECREASED GLUCOSE; Start 07/06/18 at 14:30 Glucose (Glutose) 22.5 gm Q15M PRN PO DECREASED GLUCOSE; Start 07/06/18 at 14:30 Dextrose (D50w Syringe) 25 ml Q15M PRN IV DECREASED GLUCOSE; Start 07/06/18 at 14:30 Dextrose (D50w Syringe) 50 ml Q15M PRN IV DECREASED GLUCOSE; Start 07/06/18 at 14:30 Glucagon (Glucagen) 1 mg Q15M PRN IM DECREASED GLUCOSE; Start 07/06/18 at 14:30 Glucose (Glutose) 15 gm Q15M PRN BUCCAL DECREASED GLUCOSE; Start 07/06/18 at 14:30 Labetalol HCl (Labetalol) 10 mg Q4 PRN IV sbp >160 Last administered on 07/09/18at 04:19; Admin Dose 10 MG; Start 07/06/18 at 15:00 Atorvastatin Calcium (Lipitor) 80 mg HS PO Last administered on 07/15/18 20:40; Admin Dose 80 MG; Start 07/06/18 at 21:00 Isosorbide Dinitrate (Isordil) 20 mg TID PO Last administered on 07/15/18 20:40; Admin Dose 20 MG; Start 07/06/18 at 21:00 Carvedilol (Coreg) 3.125 mg BID PO Last administered on 07/15/18 20:41; Admin Dose 3.125 MG; Start 07/08/18 at 09:00 Hydralazine HCl (Apresoline) 50 mg TID PO Last administered on 07/15/18 20:40; Admin Dose 50 MG; Start 07/08/18 at 09:00 Morphine Sulfate (morphine) 6 mg Q4H PRN PO SEVERE PAIN LEVEL 7-10 Last administered on 07/10/18 16:48; Admin Dose 6 MG; Start 07/08/18 at 22:00 Acetylcysteine (Nac) 600 mg BID PO Last administered on 07/15/18 20:40; Admin Dose 600 MG; Start 07/09/18 at 09:00 Amlodipine Besylate (Norvasc) 10 mg DAILY PO Last administered on 07/15/18 08:55; Admin Dose 10 MG; Start 07/09/18 at 09:00 Ticagrelor (Brilinta) 90 mg BID PO Last administered on 07/15/18 21:09; Admin Dose 90 MG; Start 07/10/18 at 09:00 Albuterol/ Ipratropium (Duoneb) 3 ml Q6H RESP THERAPY HHN Last administered on 07/16/18 08:16; Admin Dose 3 ML; Start 07/12/18 at 16:30 Albuterol/ Ipratropium (Duoneb) 3 ml Q6H RESP THERAPY PRN HHN wheezing; Start 07/12/18 at 16:30 Ranolazine (Ranexa) 500 mg Q12 PO Last administered on 07/15/18at 20:40; Admin Dose 500 MG; Start 07/12/18 at 21:00 Heparin Sodium (Porcine) (Heparin (1000 Units/ml)) 4,000 unit PER PROTOCOL PRN IV aPTT<47; Start 07/12/18 at 19:00 Heparin Sodium (Porcine) 250 ml @ 10 mls/hr PER PROTOCOL IV Last administered on 07/12/18at 20:23; Admin Dose 10 MLS/HR; Start 07/12/18 at 19:30; Status Hold Polyethylene Glycol (Miralax) 17 gm DAILY PRN NGT CONSTIPATION Last administ ered on 07/14/18at 08:02; Admin Dose 17 GM; Start 07/13/18 at 18:00 Senna (Senokot) 1 tab BID PRN PO CONSTIPATION; Start 07/14/18 at 19:30 Sodium Chloride (Deep Sea) 2 spray Q4HWA PRN NASAL congestion Last administered on 07/16/18at 05:19; Admin Dose 2 SPRAY; Start 07/15/18 at 18:00 Assessment/Plan Hospital Course (Demo Recall) 1. Non-ST elevation myocardial infarction 2. Coronary artery disease with history of previous MIs 3. History of PCI 4. Hypertension 5. Diabetes 6. Congestive heart failure class IV on arrival 7. Dyslipidemia 8. Active smoker and possibly COPD 9. Renal failure acute on chronic: ATN 10. Episode of 2-1 AV block so far asymptomatic Recommendations: Aspirin and Brilinta will be continued Low-dose carvedilol to 3.125 p.o. twice daily and continue hydralazine to his regimen. Nitroglycerin to be continued as well Continue with statins cont Ranexa Off of any SAMANTHA inhibitor or ARB due to his renal insufficiency Follow-up renal function. Patient also has significant stenosis of his left circumflex artery stent. We will plan for possibly perform PCI of this lesion once his renal function improves. However unfortunately so far renal function is worsening. Discussed with renal who decided to hold off on it for now until his renal function is stabilized/improved Hopefully within the next few day and by Dolly patient renal function is stabilized to the point that he can have the PCI done Thank you for his referral. We will continue to follow along with you, until patient is discharged and to follow-up with his regular internal salesperson Dr.Fakheri JEANNIE FREITAS MD [facility] JEANNIE FREITAS MD Jul 16, 2018 08:24
--- NOTE | 2018-07-16 08:37 | PN ---
DATE: 07/16/2018 SUBJECTIVE: The patient is stable. The patient did have an episode of a epistaxis overnight, since resolved. No other events noted. OBJECTIVE: VITAL SIGNS: Blood pressure is 136/63, respiration 18, pulse 71, temperature 97.5. HEENT: Head is normocephalic. NECK: Supple. HEART: Regular rate. LUNGS: Show diminished breath sounds at base. ABDOMEN: Soft, nontender to palpation without rebound or guarding. EXTREMITIES: Negative for clubbing, cyanosis, no edema. DERMATOLOGIC: No rashes. MUSCULOSKELETAL: No joint effusions. NEUROLOGIC: No change in exam. MEDICATIONS: Reviewed. LABORATORY DATA: Shows sodium 138, potassium 4.6, chloride 109. BUN 56, creatinine 4.45, phosphorus 5.9. White count 8.2, hemoglobin 8.4, platelet count is 287. ASSESSMENT AND PLAN: 1. Nonoliguric acute kidney injury on top of chronic kidney disease stage IV with previous baseline creatinine around 3 mg/dL. Etiology of acute kidney injury is felt to be secondary to contrast-assoc iated nephropathy. The patient's renal function continues to fluctuate. Stable in the last 24 hours ; however, creatinine now is around 4.4 mg/dL. At this point, would continue to defer cardiac cathet erization. Would otherwise continue supportive care, renally dose all meds. No immediate need for r enal replacement therapy at this time. Will continue to monitor closely. 2. Chronic kidney disease with nephrotic range proteinuria. Etiology is secondary to diabetic nephr opathy. The patient's neurologic workups negative to date. Continue to treat acute kidney injury as stated above. Continue treatment plan. Continue disease factor modification. 3. Diabetes. Continue current insulin regimen. 4. Anemia. Monitor hemoglobin and hematocrit levels. Mineral bone disorder. Monitor calcium and ph osphorus levels. 5. Coronary artery disease status post PCI to the RCA. The patient will require further interventio n of his left circumflex. At this point, continue medical management with aspirin and statin therapy . Continue heparin drip. Follow up with cardiology. 6. Hypertension. Continue current blood pressure regimen. Defer any SAMANTHA inhibitor or ARB at this t jamison. Dictated By: GRAEME BRANDT DO NR/NTS Conf#: [id number] DID#: [id number] CC: SCOT MCKEON MD;*EndCC*
--- NOTE | 2018-07-16 09:08 | PN ---
Date/Time of Note Date/Time of Note DATE: 07/16/18 TIME: 09:08 Assessment/Plan VTE Prophylaxis Risk score (from Ns)>0 risk: 5 SCD applied (from Ns): Yes Pharmacological prophylaxis: other Pharm contraindication: low risk/ambulating Lines/[facility]atheters [facility] [place] [facility] Urinary Cath still in place: No Assessment/Plan Assessment/Plan 1. Non-ST elevated LA s/p PCI- stable - Patient remains stable. Continue on Brilinta and aspirin. Unable to give heparin given multiple episodes of epistaxis - Cardiology on board and appreciate recommendations. Will need repeat PCI given stenosis of left circumflex stent prior to discharge once renal function normalizes - Patient underwent cardiac cath received stent x3 in the RCA 2. Acute kidney injury on CKD - Nephrology consultation appreciated. Will continue monitoring renal function for improvement. Will hold off on PCI for now - will continue monitoring and avoid nephrotoxic agents 3. Anemia - continues to fluctuate but no active bleeding appreciate. Will continue to monitor given on Brilinta and aspirin 4. Diabetes mellitus - Insulin while in house 5. Hypertension - stable 6. JUAN JOSÉ - will need outpatient pulm follow up for sleep study - refusing CPAP 7. Disposition - Remains stable and no acute issues - Continue monitoring for improvement in renal function. Once able, will need PCI performed Result Diagram: 07/16/18 0512 07/16/18 0512 Results 24hrs Laboratory Tests Test 07/15/18 11:08 07/15/18 17:16 07/15/18 20:13 07/16/18 05:12 Bedside Glucose 206 105 98 White Blood Count 8.2 Red Blood Count 2.88 L Hemoglobin 8.4 L Hematocrit 26.0 L Mean Corpuscular Volume 90.3 Mean Corpuscular 29.2 Hemoglobin Mean Corpuscular 32.3 Hemoglobin Concent Red Cell Distribution 13.4 Width Platelet Count 287 Mean Platelet Volume 11.2 H Immature Granulocytes % 0.200 Neutrophils % 71.5 Lymphocytes % 17.6 Monocytes % 8.1 Eosinophils % 2.1 Basophils % 0.5 Nucleated Red Blood 0.0 Cells % Immature Granulocytes # 0.020 Neutrophils # 5.9 Lymphocytes # 1.5 Monocytes # 0.7 Eosinophils # 0.2 Basophils # 0.0 Nucleated Red Blood 0.0 Cells # Sodium Level 138 Potassium Level 4.6 Chloride Level 109 Carbon Dioxide Level 18 L Anion Gap 11 Blood Urea Nitrogen 56 H Creatinine 4.45 H Est Glomerular Filtrat 13 L Rate mL/min Glucose Level 84 # Calcium Level 8.9 Phosphorus Level 5.9 H Magnesium Level 2.2 Test 07/16/18 08:30 Bedside Glucose 72 Subjective 24 Hr Interval Summary Free Text/Dictation Patient doing well and denies any acute issues. No acute overnight events. Exam/Review of Systems Exam Vitals Vital Signs Date Temp Pulse Resp B/P (MAP) Pulse Ox O2 O2 Flow FiO2 Time Delivery Rate 07/16/18 74 08:18 07/16/18 18 95 21 08:16 07/16/18 97.5 136/63 07:45 (87) 07/15/18 2.0 13:55 07/15/18 Nasal 13:54 Cannula Intake and Output 07/15/18 07/15/18 07/16/18 1515:00 23:00 07:00 IntakeIntake Total 400 ml OutputOutput Total 1300 ml BalanceBalance -900 ml Exam General: no acute distress Head: Normocephalic atraumatic Neck: Supple Respiratory: Clear to auscultation bilaterally. no wheezing or rhonchi Cardiovascular: regular rate and rhythm, no obvious murmurs Gastrointestinal: soft, non-tender to palpation, bowel sounds heard. Neurological: Moves all extremities spontaneously Skin: No new skin lesions Results Results 24hrs Laboratory Tests Test 07/15/18 11:08 07/15/18 17:16 07/15/18 20:13 07/16/18 05:12 Bedside Glucose 206 105 98 White Blood Count 8.2 Red Blood Count 2.88 L Hemoglobin 8.4 L Hematocrit 26.0 L Mean Corpuscular Volume 90.3 Mean Corpuscular 29.2 Hemoglobin Mean Corpuscular 32.3 Hemoglobin Concent Red Cell Distribution 13.4 Width Platelet Count 287 Mean Platelet Volume 11.2 H Immature Granulocytes % 0.200 Neutrophils % 71.5 Lymphocytes % 17.6 Monocytes % 8.1 Eosinophils % 2.1 Basophils % 0.5 Nucleated Red Blood 0.0 Cells % Immature Granulocytes # 0.020 Neutrophils # 5.9 Lymphocytes # 1.5 Monocytes # 0.7 Eosinophils # 0.2 Basophils # 0.0 Nucleated Red Blood 0.0 Cells # Sodium Level 138 Potassium Level 4.6 Chloride Level 109 Carbon Dioxide Level 18 L Anion Gap 11 Blood Urea Nitrogen 56 H Creatinine 4.45 H Est Glomerular Filtrat 13 L Rate mL/min Glucose Level 84 # Calcium Level 8.9 Phosphorus Level 5.9 H Magnesium Level 2.2 Test 07/16/18 08:30 Bedside Glucose 72 Medications Medication Current Medications IV Flush (NS 3 ml) 3 ml PER PROTOCOL IV ; Start 07/06/18 at 13:00 Ondansetron HCl (Zofran Inj) 4 mg Q6H PRN IV NAUSEA/VOMITING Last administered on 07/10/18 16:48; Admin Dose 4 MG; Start 07/06/18 at 13:00 Aspirin (Aspirin) 81 mg DAILY PO Last administered on 07/15/18 08:53; Admin Dose 81 MG; Start 07/07/18 at 09:00 Nitroglycerin (Nitroglycerin (Sl Tab) 0.4 Mg) 1 tab Q5M PRN SL .CHEST PAIN; Start 07/06/18 at 13:00 Acetaminophen (Tylenol Tab) 650 mg Q6H PRN PO .PAIN 1-3 OR TEMP; Start 07/06/18 at 13:00 Acetaminophen/ Hydrocodone Bitart ([place] (5/325)) 1 tab Q6H PRN PO .PAIN 4-6 Last administered on 07/10/18 12:00; Admin Dose 1 TAB; Start 07/06/18 at 13:00 Famotidine (Pepcid) 20 mg DAILY PO Last administered on 07/15/18 08:55; Admin Dose 20 MG; Start 07/06/18 at 14:00 Diagnostic Test (Pha) (Accu-Chek) 1 ea 02 XX Last administered on 07/14/18 02:30; Admin Dose 1 EA; Start 07/07/18 at 02:00 Insulin Glargine (Lantus) 19 units DAILY@2000 SC Last administered on 07/15/18 21:09; Admin Dose 19 UNITS; Start 07/06/18 at 20:00 Insulin Aspart (Novolog Insulin Pen) 5 unit WITH MEALS SC Last administered on 07/15/18 18:02; Admin Dose 5 UNIT; Start 07/06/18 at 18:00 Insulin Aspart (Novolog Insulin Pen) NOVOLOG *MILD* ALGORITHM WITH MEALS BEDTIME SC Last administered on 07/15/18 11:11; Admin Dose 2 UNIT; Start 07/06/18 at 18:00 Miscellaneous Information 1 ea NOTE XX ; Start 07/06/18 at 14:30 Glucose (Glutose) 15 gm Q15M PRN PO DECREASED GLUCOSE; Start 07/06/18 at 14:30 Glucose (Glutose) 22.5 gm Q15M PRN PO DECREASED GLUCOSE; Start 07/06/18 at 14:30 Dextrose (D50w Syringe) 25 ml Q15M PRN IV DECREASED GLUCOSE; Start 07/06/18 at 14:30 Dextrose (D50w Syringe) 50 ml Q15M PRN IV DECREASED GLUCOSE; Start 07/06/18 at 14:30 Glucagon (Glucagen) 1 mg Q15M PRN IM DECREASED GLUCOSE; Start 07/06/18 at 14:30 Glucose (Glutose) 15 gm Q15M PRN BUCCAL DECREASED GLUCOSE; Start 07/06/18 at 14:30 Labetalol HCl (Labetalol) 10 mg Q4 PRN IV sbp >160 Last administered on 07/09/18at 04:19; Admin Dose 10 MG; Start 07/06/18 at 15:00 Atorvastatin Calcium (Lipitor) 80 mg HS PO Last administered on 07/15/18 20:40; Admin Dose 80 MG; Start 07/06/18 at 21:00 Isosorbide Dinitrate (Isordil) 20 mg TID PO Last administered on 07/15/18at 20:40 ; Admin Dose 20 MG; Start 07/06/18 at 21:00 Carvedilol (Coreg) 3.125 mg BID PO Last administered on 07/15/18at 20:41; Admin Dose 3.125 MG; Start 07/08/18 at 09:00 Hydralazine HCl (Apresoline) 50 mg TID PO Last administered on 07/15/18 20:40; Admin Dose 50 MG; Start 07/08/18 at 09:00 Morphine Sulfate (morphine) 6 mg Q4H PRN PO SEVERE PAIN LEVEL 7-10 Last administered on 07/10/18at 16:48; Admin Dose 6 MG; Start 07/08/18 at 22:00 Acetylcysteine (Nac) 600 mg BID PO Last administered on 07/15/18at 20:40; Admin Dose 600 MG; Start 07/09/18 at 09:00 Amlodipine Besylate (Norvasc) 10 mg DAILY PO Last administered on 07/15/18 08:55; Admin Dose 10 MG; Start 07/09/18 at 09:00 Ticagrelor (Brilinta) 90 mg BID PO Last administered on 07/15/18 21:09; Admin Dose 90 MG; Start 07/10/18 at 09:00 Albuterol/ Ipratropium (Duoneb) 3 ml Q6H RESP THERAPY HHN Last administered on 07/16/18 08:16; Admin Dose 3 ML; Start 07/12/18 at 16:30 Albuterol/ Ipratropium (Duoneb) 3 ml Q6H RESP THERAPY PRN HHN wheezing; Start 07/12/18 at 16:30 Ranolazine (Ranexa) 500 mg Q12 PO Last administered on 07/15/18 20:40; Admin Dose 500 MG; Start 07/12/18 at 21:00 Heparin Sodium (Porcine) (Heparin (1000 Units/ml)) 4,000 unit PER PROTOCOL PRN IV aPTT<47; Start 07/12/18 at 19:00 Heparin Sodium (Porcine) 250 ml @ 10 mls/hr PER PROTOCOL IV Last administered on 07/12/18 20:23; Admin Dose 10 MLS/HR; Start 07/12/18 at 19:30; Status Hold Polyethylene Glycol (Miralax) 17 gm DAILY PRN NGT CONSTIPATION Last administered on 07/14/18 08:02; Admin Dose 17 GM; Start 07/13/18 at 18:00 Senna (Senokot) 1 tab BID PRN PO CONSTIPATION; Start 07/14/18 at 19:30 Sodium Chloride (Deep Sea) 2 spray Q4HWA PRN NASAL congestion Last administered on 07/16/18 05:19; Admin Dose 2 SPRAY; Start 07/15/18 at 18:00 AVELINO WHITE MD Jul 16, 2018 09:08
[2018-07-16] MEDS: ACETYLCYSTEINE 600 MG CAP PO SCH ×2 (09:28→21:56)
[2018-07-16] MEDS: FAMOTIDINE 20 MG TAB PO SCH (09:28)
[2018-07-16] MEDS: RANOLAZINE (SR) 500 MG TAB PO SCH ×2 (09:28→20:42)
[2018-07-16] MEDS: ASPIRIN 81 MG TAB PO SCH (09:28)
[2018-07-16] MEDS: AMLODIPINE 10 MG TAB PO SCH (09:30)
[2018-07-16] MEDS: ISOSORBIDE DINITRATE 20 MG TAB PO SCH ×3 (09:30→20:42)
[2018-07-16] MEDS: TICAGRELOR 90 MG TABLET PO SCH ×2 (09:36→21:49)
[2018-07-16] MEDS: ATORVASTATIN 80 MG TAB PO SCH (20:42)
[2018-07-16] MEDS: INSULIN GLARGINE [LANTus] (100 UNITS/ML) SYG SC SCH (21:49)
[2018-07-17] VITALS (12 sets, daily range): BP systolic 111–144; BP diastolic 54–73; PULSE 63–83; RESP 18–20
[2018-07-17] MEDS: ACCU-CHEK XX SCH (02:00)
[2018-07-17] MEDS: ALBUTEROL/IPRATROPIUM (NEB) 3 ML AMP HHN SCH ×4 (02:07→19:39)
--- NOTE | 2018-07-17 05:42 | NUR ---
END OF SHIFT REPORT HAD OOZING FROM HIS RIGHT NARES. EXPLAINED TO PATIENT WHY HE WAS HAVING EPISTAXIS AND TOLD HIM NOT TO SNEEZE OUT HARD. ICE COMPRESS AND DECONGESTANT TEMPORARILY RELIEVED THE OOZING. OTHERWISE, NO OTHER SIGNIFICANT EVENT. NO COMPLAINT OF PAIN. SINUS RHYTHM ON THE MONITOR.
[2018-07-17] MEDS: INSULIN ASPART [NOVOLOG] 3 ML PEN SC SCH ×7 (08:00→20:46)
[2018-07-17] MEDS: FAMOTIDINE 20 MG TAB PO SCH (08:20)
--- NOTE | 2018-07-17 08:55 | PN ---
Date/Time of Note Date/Time of Note DATE: 07/17/18 TIME: 08:55 Assessment/Plan VTE Prophylaxis Risk score (from Ns)>0 risk: 5 SCD applied (from Ns): Yes Pharmacological prophylaxis: other Lines/Catheters IV Catheter Type (from Nrs): Saline Lock Urinary Cath still in place: No Assessment/Plan Assessment/Plan 1. Non-ST elevated NE s/p PCI- stable - No chest pain noted. Continue on Brilinta and aspirin. - Cardiology on board and appreciate recommendations. Will need repeat PCI g iven stenosis of left circumflex stent prior to discharge once renal function normalizes - Patient underwent cardiac cath received stent x3 in the RCA 2. Acute kidney injury on CKD - Nephrology consultation appreciated. Will continue monitoring renal function for improvement. Will hold off on PCI for now - will continue monitoring and avoid nephrotoxic agents 3. Anemia - continues to fluctuate but no active bleeding appreciate. Will continue to monitor given on Brilinta and aspirin 4. Diabetes mellitus - Insulin while in house 5. Hypertension - stable 6. JUAN JOSÉ - will need outpatient pulm follow up for sleep study - refusing CPAP 7. Disposition - Remains stable and no acute issues - Continue monitoring for improvement in renal function. Once able, will need PCI performed Result Diagram: 07/17/18 0516 07/17/18 0516 Results 24hrs Laboratory Tests Test 07/16/18 12:17 07/16/18 17:15 07/16/18 20:37 07/17/18 05:16 Bedside Glucose 186 143 108 White Blood Count 7.9 Red Blood Count 2.78 L Hemoglobin 8.1 L Hematocrit 25.2 L Mean Corpuscular Volume 90.6 Mean Corpuscular 29.1 Hemoglobin Mean Corpuscular 32.1 Hemoglobin Concent Red Cell Distribution 13.2 Width Platelet Count 283 Mean Platelet Volume 10.9 H Immature Granulocytes % 0.300 Neutrophils % 70.5 Lymphocytes % 17.4 Monocytes % 8.6 Eosinophils % 2.6 Basophils % 0.6 Nucleated Red Blood 0.0 Cells % Immature Granulocytes # 0.020 Neutrophils # 5.6 Lymphocytes # 1.4 Monocytes # 0.7 Eosinophils # 0.2 Basophils # 0.1 Nucleated Red Blood 0.0 Cells # Sodium Level 137 Potassium Level 4.8 Chloride Level 109 Carbon Dioxide Level 18 L Anion Gap 10 Blood Urea Nitrogen 55 H Creatinine 4.32 H Est Glomerular Filtrat 14 L Rate mL/min Glucose Level 79 Calcium Level 8.8 Phosphorus Level 5.8 H Magnesium Level 2.1 Test 07/17/18 08:24 Bedside Glucose 78 Subjective 24 Hr Interval Summary Free Text/Dictation Patient doing well and in no acute distress. ambulating without any issues and no overnight events. Exam/Review of Systems Exam Vitals Vital Signs Date Temp Pulse Resp B/P (MAP) Pulse Ox O2 O2 Flow FiO2 Time Delivery Rate 07/17/18 69 18 95 21 08:09 07/17/18 97.5 142/73 07:32 (96) 07/16/18 Room Air 20:20 07/15/18 2.0 13:55 Intake and Output 07/16/18 07/16/18 07/17/18 1515:00 23:00 07:00 IntakeIntake Total 3000 ml 800 ml OutputOutput Total 1200 ml 650 ml BalanceBalance 1800 ml 150 ml Exam General: no acute distress Head: Normocephalic atraumatic Neck: Supple Respiratory: Clear to auscultation bilaterally. no wheezing or rhonchi Cardiovascular: regular rate and rhythm, no obvious murmurs Gastrointestinal: soft, non-tender to palpation, bowel sounds heard. Neurological: Moves all extremities spontaneously Skin: No new skin lesions Results Results 24hrs Laboratory Tests Test 07/16/18 12:17 07/16/18 17:15 07/16/18 20:37 07/17/18 05:16 Bedside Glucose 186 143 108 White Blood Count 7.9 Red Blood Count 2.78 L Hemoglobin 8.1 L Hematocrit 25.2 L Mean Corpuscular Volume 90.6 Mean Corpuscular 29.1 Hemoglobin Mean Corpuscular 32.1 Hemoglobin Concent Red Cell Distribution 13.2 Width Platelet Count 283 Mean Platelet Volume 10.9 H Immature Granulocytes % 0.300 Neutrophils % 70.5 Lymphocytes % 17.4 Monocytes % 8.6 Eosinophils % 2.6 Basophils % 0.6 Nucleated Red Blood 0.0 Cells % Immature Granulocytes # 0.020 Neutrophils # 5.6 Lymphocytes # 1.4 Monocytes # 0.7 Eosinophils # 0.2 Basophils # 0.1 Nucleated Red Blood 0.0 Cells # Sodium Level 137 Potassium Level 4.8 Chloride Level 109 Carbon Dioxide Level 18 L Anion Gap 10 Blood Urea Nitrogen 55 H Creatinine 4.32 H Est Glomerular Filtrat 14 L Rate mL/min Glucose Level 79 Calcium Level 8.8 Phosphorus Level 5.8 H Magnesium Level 2.1 Test 07/17/18 08:24 Bedside Glucose 78 Medications Medication Current Medications IV Flush (NS 3 ml) 3 ml PER PROTOCOL IV ; Start 07/06/18 at 13:00 Ondansetron HCl (Zofran Inj) 4 mg Q6H PRN IV NAUSEA/VOMITING Last administered on 07/10/18 16:48; Admin Dose 4 MG; Start 07/06/18 at 13:00 Aspirin (Aspirin) 81 mg DAILY PO Last administered on 07/16/18 09:28; Admin Dose 81 MG; Start 07/07/18 at 09:00 Nitroglycerin (Nitroglycerin (Sl Tab) 0.4 Mg) 1 tab Q5M PRN SL .CHEST PAIN; Start 07/06/18 at 13:00 Acetaminophen (Tylenol Tab) 650 mg Q6H PRN PO .PAIN 1-3 OR TEMP; Start 07/06/18 at 13:00 Acetaminophen/ Hydrocodone Bitart ([place] (5/325)) 1 tab Q6H PRN PO .PAIN 4-6 Last administered on 07/10/18 12:00; Admin Dose 1 TAB; Start 07/06/18 at 13:00 Famotidine (Pepcid) 20 mg DAILY PO Last administered on 07/16/18 09:28; Admin Dose 20 MG; Start 07/06/18 at 14:00 Diagnostic Test (Pha) (Accu-Chek) 1 ea 02 XX Last administered on 07/14/18 02:30; Admin Dose 1 EA; Start 07/07/18 at 02:00 Insulin Glargine (Lantus) 19 units DAILY@2000 SC Last administered on 07/16/18 21:49; Admin Dose 19 UNITS; Start 07/06/18 at 20:00 Insulin Aspart (Novolog Insulin Pen) 5 unit WITH MEALS SC Last administered on 07/17/18 08:28; Admin Dose 5 UNIT; Start 07/06/18 at 18:00 Insulin Aspart (Novolog Insulin Pen) NOVOLOG *MILD* ALGORITHM WITH MEALS BEDTI [place] SC Last administered on 07/16/18 17:31; Admin Dose 1 UNIT; Start 07/06/18 at 18:00 Miscellaneous Information 1 ea NOTE XX ; Start 07/06/18 at 14:30 Glucose (Glutose) 15 gm Q15M PRN PO DECREASED GLUCOSE; Start 07/06/18 at 14:30 Glucose (Glutose) 22.5 gm Q15M PRN PO DECREASED GLUCOSE; Start 07/06/18 at 14:30 Dextrose (D50w Syringe) 25 ml Q15M PRN IV DECREASED GLUCOSE; Start 07/06/18 at 14:30 Dextrose (D50w Syringe) 50 ml Q15M PRN IV DECREASED GLUCOSE; Start 07/06/18 at 14:30 Glucagon (Glucagen) 1 mg Q15M PRN IM DECREASED GLUCOSE; Start 07/06/18 at 14:30 Glucose (Glutose) 15 gm Q15M PRN BUCCAL DECREASED GLUCOSE; Start 07/06/18 at 14:30 Labetalol HCl (Labetalol) 10 mg Q4 PRN IV sbp >160 Last administered on 07/09/18at 04:19; Admin Dose 10 MG; Start 07/06/18 at 15:00 Atorvastatin Calcium (Lipitor) 80 mg HS PO Last administered on 07/16/18 20:42; Admin Dose 80 MG; Start 07/06/18 at 21:00 Isosorbide Dinitrate (Isordil) 20 mg TID PO Last administered on 07/16/18 20:42; Admin Dose 20 MG; Start 07/06/18 at 21:00 Carvedilol (Coreg) 3.125 mg BID PO Last administered on 07/16/18 20:43; Admin Dose 3.125 MG; Start 07/08/18 at 09:00 Hydralazine HCl (Apresoline) 50 mg TID PO Last administered on 07/16/18 20:43; Admin Dose 50 MG; Start 07/08/18 at 09:00 Morphine Sulfate (morphine) 6 mg Q4H PRN PO SEVERE PAIN LEVEL 7-10 Last administered on 07/10/18 16:48; Admin Dose 6 MG; Start 07/08/18 at 22:00 Acetylcysteine (Nac) 600 mg BID PO Last administered on 07/16/18 21:56; Admin Dose 600 MG; Start 07/09/18 at 09:00 Amlodipine Besylate (Norvasc) 10 mg DAILY PO Last administered on 2/7/19at 09:30; Admin Dose 10 MG; Start 07/09/18 at 09:00 Ticagrelor (Brilinta) 90 mg BID PO Last administered on 07/16/18 21:49; Admin Dose 90 MG; Start 07/10/18 at 09:00 Albuterol/ Ipratropium (Duoneb) 3 ml Q6H RESP THERAPY HHN Last administered on 07/17/18 08:09; Admin Dose 3 ML; Start 07/12/18 at 16:30 Albuterol/ Ipratropium (Duoneb) 3 ml Q6H RESP THERAPY PRN HHN wheezing; Start 07/12/18 at 16:30 Ranolazine (Ranexa) 500 mg Q12 PO Last administered on 07/16/18 20:42; Admin Dose 500 MG; Start 07/12/18 at 21:00 Heparin Sodium (Porcine) (Heparin (1000 Units/ml)) 4,000 unit PER PROTOCOL PRN IV aPTT<47; Start 07/12/18 at 19:00 Heparin Sodium (Porcine) 250 ml @ 10 mls/hr PER PROTOCOL IV Last administered on 07/12/18 20:23; Admin Dose 10 MLS/HR; Start 07/12/18 at 19:30; Status Hold Polyethylene Glycol (Miralax) 17 gm DAILY PRN NGT CONSTIPATION Last administered on 07/14/18 08:02; Admin Dose 17 GM; Start 07/13/18 at 18:00 Senna (Senokot) 1 tab BID PRN PO CONSTIPATION; Start 07/14/18 at 19:30 Sodium Chloride (Deep Sea) 2 spray Q4HWA PRN NASAL congestion Last administered on 07/16/18 05:19; Admin Dose 2 SPRAY; Start 07/15/18 at 18:00 AVELINO WHITE MD Jul 17, 2018 08:55
[2018-07-17] MEDS: ACETYLCYSTEINE 600 MG CAP PO SCH ×2 (09:50→20:43)
[2018-07-17] MEDS: RANOLAZINE (SR) 500 MG TAB PO SCH ×2 (09:50→20:45)
[2018-07-17] MEDS: ISOSORBIDE DINITRATE 20 MG TAB PO SCH ×3 (09:50→20:44)
[2018-07-17] MEDS: ASPIRIN 81 MG TAB PO SCH (09:50)
[2018-07-17] MEDS: AMLODIPINE 10 MG TAB PO SCH (09:51)
[2018-07-17] MEDS: TICAGRELOR 90 MG TABLET PO SCH ×2 (10:38→21:00)
--- NOTE | 2018-07-17 11:04 | CONS ---
Consult Date/Type/Reason Admit Date/Time Jul 06, 2018 at 12:07 Initial Consult Date 07/06/18 Type of Consultation: cv Requesting Provider: SCOT MCKEON Date/Time of Note DATE: 07/17/18 TIME: 11:02 Subjective Interventional cardiology follow-up progress note Subjective: Discussed with the staff and . d/w physicians including DR Rausch and Dr Tylor Carmen was reviewed. Patient remains in normal sinus rhythm Patient with no chest pain or pressure now Patient with minimal nosebleed last night. No other bleeding is reported. No groin pain. Events noted: Status post PCI of the right coronary artery using 3 drug-eluting stent on July 10, 2018. Objective: General: Obese gentleman no acute distress HEENT: NC/AT. pupils are equal. round. NECK: no stridor. CV: RRR. systolic murmur; no gallop or rubs. PULM: no wheezing . Mild rhonchi . GI: SOFT, NT, ND, no rebound or guarding Extremity: trace B/L LE edema. no clubbing. neuro: awake and alert, OX3. Psych: calm and pleasant rectal: deferred : normal EKG shows normal sinus rhythm. ST-T wave abnormalities suggestive of inferolateral ischemia Echocardiogram was reviewed which showed ejection fraction of 45% Chest x-ray shows: Mild cardiomegaly with pulmonary vascular congestion. Slightly more focal right lower lobe infiltrate. Chest x-ray done 07/12/2018 shows: The aorta is tortuous and atherosclerotic. The cardiomediastinal silhouette is otherwise mildly enlarged and is stable. Mild thickening of the minor fissure is suspected. The remaining lungs and pleural spaces are clear. The soft tissues and osseous structures demonstrate benign age related senescent changes. Objective Vitals Vital Signs Date Temp Pulse Resp B/P (MAP) Pulse Ox O2 O2 Flow FiO2 Time Delivery Rate 07/17/18 69 18 95 21 08:09 07/17/18 97.5 142/73 07:32 (96) 07/16/18 Room Air 20:20 07/15/18 2.0 13:55 Intake and Output 07/16/18 07/16/18 07/17/18 1515:00 23:00 07:00 IntakeIntake Total 3000 ml 800 ml OutputOutput Total 1200 ml 650 ml BalanceBalance 1800 ml 150 ml Results/Medications Result Diagram: 07/17/18 0516 07/17/18 0516 Results 24 hrs Laboratory Tests Test 07/16/18 12:17 07/16/18 17:15 07/16/18 20:37 07/17/18 05:16 Bedside Glucose 186 143 108 White Blood Count 7.9 Red Blood Count 2.78 L Hemoglobin 8.1 L Hematocrit 25.2 L Mean Corpuscular Volume 90.6 Mean Corpuscular 29.1 Hemoglobin Mean Corpuscular 32.1 Hemoglobin Concent Red Cell Distribution 13.2 Width Platelet Count 283 Mean Platelet Volume 10.9 H Immature Granulocytes % 0.300 Neutrophils % 70.5 Lymphocytes % 17.4 Monocytes % 8.6 Eosinophils % 2.6 Basophils % 0.6 Nucleated Red Blood 0.0 Cells % Immature Granulocytes # 0.020 Neutrophils # 5.6 Lymphocytes # 1.4 Monocytes # 0.7 Eosinophils # 0.2 Basophils # 0.1 Nucleated Red Blood 0.0 Cells # Sodium Level 137 Potassium Level 4.8 Chloride Level 109 Carbon Dioxide Level 18 L Anion Gap 10 Blood Urea Nitrogen 55 H Creatinine 4.32 H Est Glomerular Filtrat 14 L Rate mL/min Glucose Level 79 Calcium Level 8.8 Phosphorus Level 5.8 H Magnesium Level 2.1 Test 07/17/18 08:24 Bedside Glucose 78 Home Meds Active Scripts Carvedilol* (Carvedilol*) 6.25 Mg Tablet, 6.25 MG PO BID for 60 Days, #120 TAB Prov:BHARATH KING MD 04/13/17 Reported Medications Insulin Glargine* (Lantus*) 100 Unit/Ml Soln, 30 UNIT SC DAILY, #1 VIAL 04/05/17 Aspirin (Low Dose Aspirin) 81 Mg Tablet.dr, 81 MG PO DAILY, #30 TAB 04/05/17 Atorvastatin Calcium* (Atorvastatin Calcium*) 20 Mg Tablet, 20 MG PO QHS, #30 TAB 04/05/17 Amlodipine Besylate* (Amlodipine Besylate*) 10 Mg Tablet, 10 MG PO DAILY, #30 TAB 04/05/17 Medications Current Medications IV Flush (NS 3 ml) 3 ml PER PROTOCOL IV ; Start 07/06/18 at 13:00 Ondansetron HCl (Zofran Inj) 4 mg Q6H PRN IV NAUSEA/VOMITING Last administered on 07/10/18at 16:48; Admin Dose 4 MG; Start 07/06/18 at 13:00 Aspirin (Aspirin) 81 mg DAILY PO Last administered on 07/17/18at 09:50; Admin Dose 81 MG; Start 07/07/18 at 09:00 Nitroglycerin (Nitroglycerin (Sl Tab) 0.4 Mg) 1 tab Q5M PRN SL .CHEST PAIN; Start 07/06/18 at 13:00 Acetaminophen (Tylenol Tab) 650 mg Q6H PRN PO .PAIN 1-3 OR TEMP; Start 07/06/18 at 13:00 Acetaminophen/ Hydrocodone Bitart ([place] (5/325)) 1 tab Q6H PRN PO .PAIN 4-6 Last administered on 07/10/18at 12:00; Admin Dose 1 TAB; Start 07/06/18 at 13:00 Famotidine (Pepcid) 20 mg DAILY PO Last administered on 07/17/18 08:20; Admin Dose 20 MG; Start 07/06/18 at 14:00 Diagnostic Test (Pha) (Accu-Chek) 1 ea 02 XX Last administered on 07/14/18at 02:30; Admin Dose 1 EA; Start 07/07/18 at 02:00 Insulin Glargine (Lantus) 19 units DAILY@2000 SC Last administered on 07/16/18at 21:49; Admin Dose 19 UNITS; Start 07/06/18 at 20:00 Insulin Aspart (Novolog Insulin Pen) 5 unit WITH MEALS SC Last administered on 07/17/18 08:28; Admin Dose 5 UNIT; Start 07/06/18 at 18:00 Insulin Aspart (Novolog Insulin Pen) NOVOLOG *MILD* ALGORITHM WITH MEALS BEDTIM E SC Last administered on 07/16/18at 17:31; Admin Dose 1 UNIT; Start 07/06/18 at 18:00 Miscellaneous Information 1 ea NOTE XX ; Start 07/06/18 at 14:30 Glucose (Glutose) 15 gm Q15M PRN PO DECREASED GLUCOSE; Start 07/06/18 at 14:30 Glucose (Glutose) 22.5 gm Q15M PRN PO DECREASED GLUCOSE; Start 07/06/18 at 14:30 Dextrose (D50w Syringe) 25 ml Q15M PRN IV DECREASED GLUCOSE; Start 07/06/18 at 14:30 Dextrose (D50w Syringe) 50 ml Q15M PRN IV DECREASED GLUCOSE; Start 07/06/18 at 14:30 Glucagon (Glucagen) 1 mg Q15M PRN IM DECREASED GLUCOSE; Start 07/06/18 at 14:30 Glucose (Glutose) 15 gm Q15M PRN BUCCAL DECREASED GLUCOSE; Start 07/06/18 at 14:30 Labetalol HCl (Labetalol) 10 mg Q4 PRN IV sbp >160 Last administered on 07/09/18 04:19; Admin Dose 10 MG; Start 07/06/18 at 15:00 Atorvastatin Calcium (Lipitor) 80 mg HS PO Last administered on 07/16/18 20:42; Admin Dose 80 MG; Start 07/06/18 at 21:00 Isosorbide Dinitrate (Isordil) 20 mg TID PO Last administered on 07/17/18 09:50; Admin Dose 20 MG; Start 07/06/18 at 21:00 Carvedilol (Coreg) 3.125 mg BID PO Last administered on 07/17/18 09:52; Admin Dose 3.125 MG; Start 07/08/18 at 09:00 Hydralazine HCl (Apresoline) 50 mg TID PO Last administered on 07/17/18 09:51; Admin Dose 50 MG; Start 07/08/18 at 09:00 Morphine Sulfate (morphine) 6 mg Q4H PRN PO SEVERE PAIN LEVEL 7-10 Last administered on 07/10/18 16:48; Admin Dose 6 MG; Start 07/08/18 at 22:00 Acetylcysteine (Nac) 600 mg BID PO Last administered on 07/17/18 09:50; Admin Dose 600 MG; Start 07/09/18 at 09:00 Amlodipine Besylate (Norvasc) 10 mg DAILY PO Last administered on 07/17/18 09:51; Admin Dose 10 MG; Start 07/09/18 at 09:00 Ticagrelor (Brilinta) 90 mg BID PO Last administered on 07/17/18 10:38; Admin Dose 90 MG; Start 07/10/18 at 09:00 Albuterol/ Ipratropium (Duoneb) 3 ml Q6H RESP THERAPY HHN Last administered on 07/17/18 08:09; Admin Dose 3 ML; Start 07/12/18 at 16:30 Albuterol/ Ipratropium (Duoneb) 3 ml Q6H RESP THERAPY PRN HHN wheezing; Start 07/12/18 at 16:30 Ranolazine (Ranexa) 500 mg Q12 PO Last administered on 07/17/18at 09:50; Admin Dose 500 MG; Start 07/12/18 at 21:00 Heparin Sodium (Porcine) (Heparin (1000 Units/ml)) 4,000 unit PER PROTOCOL PRN IV aPTT<47; Start 07/12/18 at 19:00 Heparin Sodium (Porcine) 250 ml @ 10 mls/hr PER PROTOCOL IV Last administered on 07/12/18at 20:23; Admin Dose 10 MLS/HR; Start 07/12/18 at 19:30; Status Hold Polyethylene Glycol (Miralax) 17 gm DAILY PRN NGT CONSTIPATION Last administered on 07/14/18at 08:02; Admin Dose 17 GM; Start 07/13/18 at 18:00 Senna (Senokot) 1 tab BID PRN PO CONSTIPATION; Start 07/14/18 at 19:30 Sodium Chloride (Deep Sea) 2 spray Q4HWA PRN NASAL congestion Last administered on 07/16/18at 05:19; Admin Dose 2 SPRAY; Start 07/15/18 at 18:00 Epoetin Raghu (Epogen (Esrd)) 10,000 units ONCE ONCE SC ; Start 07/17/18 at 11:00; Stop 07/17/18 at 11:01; Status UNV Assessment/Plan Hospital Course (Demo Recall) 1. Non-ST elevation myocardial infarction 2. Coronary artery disease with history of previous MIs 3. History of PCI 4. Hypertension 5. Diabetes 6. Congestive heart failure class IV on arrival 7. Dyslipidemia 8. Active smoker and possibly COPD 9. Renal failure acute on chronic: ATN 10. Episode of 2-1 AV block so far asymptomatic Recommendations: Aspirin and Brilinta will be continued Low-dose carvedilol to 3.125 p.o. twice daily and continue hydralazine to his regimen. Nitroglycerin to be continued as well Continue with statins cont Ranexa Off of any SAMANTHA inhibitor or ARB due to his renal insufficiency Follow-up renal function. Patient also has significant stenosis of his left circumflex artery stent. We will plan for possibly perform PCI of this lesion once his renal function improves. However unfortunately so far renal function i s worsening. Discussed with renal who decided to hold off on it for now until his renal function is stabilized/improved Hopefully within the next few day and by Friday patient renal function is stab ilized to the point that he can have the PCI done consider adding epogen to keep H/h Higher will f/u on Friday Thank you for his referral. 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
--- NOTE | 2018-07-17 12:11 | PN ---
DATE: 07/17/2018 SUBJECTIVE: The patient remains stable. Urinary output has been improving. No other acute events n oted. No hemoptysis, hematemesis or hematochezia. OBJECTIVE: VITAL SIGNS: Blood pressure is 142/73, respirations 20, pulse 72, temperature 97.5. HEENT: Head is normocephalic. NECK: Supple. HEART: Regular rate. LUNGS: Show diminished breath sounds at the base. ABDOMEN: Soft, nontender to palpation without rebound or guarding. EXTREMITIES: Negative for clubbing, cyanosis, no edema. DERMATOLOGIC: No rashes. MUSCULOSKELETAL: No joint effusion. NEUROLOGIC: No change in exam. MEDICATIONS: Reviewed. LABORATORY DATA: Show sodium 137, potassium 4.8, chloride 109, BUN 55, creatinine 4.32, phosphorus 5 .8. CBC was reviewed. ASSESSMENT AND PLAN: 1. Nonoliguric acute kidney injury on top of chronic kidney disease stage IV with previous baseline creatinine of 3.0 mg/dL. Etiology of acute kidney injury is secondary to contrast-associated nephrop athy. The patient's renal function has been fluctuating but appears to have stabilized in the last 4 8 hours. At this point, we would continue current treatment plans, supportive care, renally dose all medicines. We would defer any cardiac catheterization at this time. We will monitor renal function closely. No immediate need for renal replacement therapy at this time. 2. Chronic kidney disease stage IV with nephrotic range proteinuria. Etiology is secondary to diabe tic nephropathy. The patient is currently in acute kidney injury as stated above. We would continue current treatment plan. Continue disease factor modification. 3. Anemia. Monitor hemoglobin and hematocrit levels. 4. Mineral bone disorder, monitor calcium and phosphorus levels. 5. Metabolic acidosis secondary to acute kidney injury and chronic kidney disease. Continue to [facility]. 6. Diabetes. Continue current insulin regimen. 7. Coronary artery disease, status post percutaneous coronary intervention to the right coronary art marta. Continue medical management. Defer further intervention at this time. 8. Hypertension. Continue current blood pressure regimen. Hold any SAMANTHA inhibitor or ARB at this ti me. Dictated By: GRAEME BRANDT DO NR/NTS Conf#: [id number] DID#: [id number] CC: SCOT MCKEON MD; AVELINO WHITE MD; JEANNIE FREITAS MD;*[facility]*
[2018-07-17] MEDS ORDERED: EPOETIN 10000 UNITS/1 ML INJ (ESRD) SC ONE (17:00)
[2018-07-17] MEDS: ATORVASTATIN 80 MG TAB PO SCH (20:45)
[2018-07-17] MEDS: INSULIN GLARGINE [LANTus] (100 UNITS/ML) SYG SC SCH (20:59)
[2018-07-18] VITALS (11 sets, daily range): BP systolic 122–138; BP diastolic 61–78; PULSE 66–79; RESP 16–20
[2018-07-18] MEDS: ALBUTEROL/IPRATROPIUM (NEB) 3 ML AMP HHN SCH ×4 (02:01→20:01)
[2018-07-18] MEDS: ACCU-CHEK XX SCH (02:55)
--- NOTE | 2018-07-18 07:26 | NUR ---
Pt a/a/ox4 , ambulatory, VS stable,afebrile, no SOB no distress noted, denied pain. All needs attended. at bedside all night. Continue care plan.
--- NOTE | 2018-07-18 07:44 | PN ---
Date/Time of Note Date/Time of Note DATE: 07/18/18 TIME: 07:43 Assessment/Plan VTE Prophylaxis Risk score (from Ns)>0 risk: 3 SCD applied (from Ns): Yes Pharmacological prophylaxis: other Lines/Catheters IV Catheter Type (from [facility]): Saline Lock Urinary Cath still in place: No Assessment/Plan Hospital Course SUBJECTIVE: The patient remains stable. Urinary output has been improving. No other acute events noted. No hemoptysis, hematemesis or hematochezia. OBJECTIVE: HEENT: Head is normocephalic. NECK: Supple. HEART: Regular rate. LUNGS: Show diminished breath sounds at the base. ABDOMEN: Soft, nontender to palpation without rebound or guarding. EXTREMITIES: Negative for clubbing, cyanosis, no edema. DERMATOLOGIC: No rashes. MUSCULOSKELETAL: No joint effusion. NEUROLOGIC: No change in exam. MEDICATIONS: Reviewed. ASSESSMENT AND PLAN: 1. Nonoliguric acute kidney injury on top of chronic kidney disease stage IV with previous baseline creatinine of 3.0 mg/dL. Etiology of acute kidney injury is secondary to contrast-associated nephropathy. The patient's renal function has been fluctuating but appears to have stabilized in the last 48 hours. At this point, we would continue current treatment plans, supportive care, renally dose all medicines. We would defer any cardiac catheterization at this time. We will monitor renal function closely. No immediate need for renal replacement therapy at this time. 2. Chronic kidney disease stage IV with nephrotic range proteinuria. Etiology is secondary to diabetic nephropathy. The patient is currently in acute kidney injury as stated above. We would continue current treatment plan. Continue disease factor modification. 3. Anemia. Monitor hemoglobin and hematocrit levels. 4. Mineral bone disorder, monitor calcium and phosphorus levels. 5. Metabolic acidosis secondary to acute kidney injury and chronic kidney disease. Continue to monitor. 6. Diabetes. Continue current insulin regimen. 7. Coronary artery disease, status post percutaneous coronary intervention to the right coronary artery. Continue medical management. Defer further intervention at this time. 8. Hypertension. Continue current blood pressure regimen. Hold any SAMANTHA inhibitor or ARB at this time. Result Diagram: 07/18/18 0531 07/18/18 0531 Results 24hrs Laboratory Tests Test 07/17/18 08:24 07/17/18 12:21 07/17/18 17:51 07/17/18 20:42 Bedside Glucose 78 109 116 129 Test 07/18/18 05:31 White Blood Count 7.2 Red Blood Count 2.91 L Hemoglobin 8.4 L Hematocrit 26.2 L Mean Corpuscular Volume 90.0 Mean Corpuscular 28.9 L Hemoglobin Mean Corpuscular 32.1 Hemoglobin Concent Red Cell Distribution 13.2 Width Platelet Count 312 Mean Platelet Volume 10.6 H Immature Granulocytes % 0.600 H Neutrophils % 65.0 Lymphocytes % 22.1 Monocytes % 9.1 Eosinophils % 2.5 Basophils % 0.7 Nucleated Red Blood 0.0 Cells % Immature Granulocytes # 0.040 H Neutrophils # 4.7 Lymphocytes # 1.6 Monocytes # 0.7 Eosinophils # 0.2 Basophils # 0.1 Nucleated Red Blood 0.0 Cells # Sodium Level 137 Potassium Level 4.7 Chloride Level 107 Carbon Dioxide Level 18 L Anion Gap 12 Blood Urea Nitrogen 52 H Creatinine 4.00 H Est Glomerular Filtrat 15 L Rate mL/min Glucose Level 108 Calcium Level 8.8 Phosphorus Level 5.5 H Magnesium Level 2.0 Exam/Review of Systems Exam Vitals Vital Signs Date Temp Pulse Resp B/P (MAP) Pulse Ox O2 O2 Flow FiO2 Time Delivery Rate 07/18/18 98.0 77 19 127/75 97 04:16 (92) 07/18/18 21 02:02 07/17/18 Room Air 16:22 07/15/18 2.0 13:55 Intake and Output 07/17/18 07/17/18 07/18/18 1515:00 23:00 07:00 IntakeIntake Total 800 ml 600 ml BalanceBalance 800 ml 600 ml Results Results 24hrs Laboratory Tests Test 07/17/18 08:24 07/17/18 12:21 07/17/18 17:51 07/17/18 20:42 Bedside Glucose 78 109 116 129 Test 07/18/18 05:31 White Blood Count 7.2 Red Blood Count 2.91 L Hemoglobin 8.4 L Hematocrit 26.2 L Mean Corpuscular Volume 90.0 Mean Corpuscular 28.9 L Hemoglobin Mean Corpuscular 32.1 Hemoglobin Concent Red Cell Distribution 13.2 Width Platelet Count 312 Mean Platelet Volume 10.6 H Immature Granulocytes % 0.600 H Neutrophils % 65.0 Lymphocytes % 22.1 Monocytes % 9.1 Eosinophils % 2.5 Basophils % 0.7 Nucleated Red Blood 0.0 Cells % Immature Granulocytes # 0.040 H Neutrophils # 4.7 Lymphocytes # 1.6 Monocytes # 0.7 Eosinophils # 0.2 Basophils # 0.1 Nucleated Red Blood 0.0 Cells # Sodium Level 137 Potassium Level 4.7 Chloride Level 107 Carbon Dioxide Level 18 L Anion Gap 12 Blood Urea Nitrogen 52 H Creatinine 4.00 H Est Glomerular Filtrat 15 L Rate mL/min Glucose Level 108 Calcium Level 8.8 Phosphorus Level 5.5 H Magnesium Level 2.0 Medications Medication Current Medications IV Flush (NS 3 ml) 3 ml PER PROTOCOL IV ; Start 07/06/18 at 13:00 Ondansetron HCl (Zofran Inj) 4 mg Q6H PRN IV NAUSEA/VOMITING Last administered on 07/10/18 16:48; Admin Dose 4 MG; Start 07/06/18 at 13:00 Aspirin (Aspirin) 81 mg DAILY PO Last administered on 07/17/18 09:50; Admin Dose 81 MG; Start 07/07/18 at 09:00 Nitroglycerin (Nitroglycerin (Sl Tab) 0.4 Mg) 1 tab Q5M PRN SL .CHEST PAIN; Start 07/06/18 at 13:00 Acetaminophen (Tylenol Tab) 650 mg Q6H PRN PO .PAIN 1-3 OR TEMP; Start 07/06/18 at 13:00 Acetaminophen/ Hydrocodone Bitart ([place] (5/325)) 1 tab Q6H PRN PO .PAIN 4-6 Last administered on 07/10/18 12:00; Admin Dose 1 TAB; Start 07/06/18 at 13:00 Famotidine (Pepcid) 20 mg DAILY PO Last administered on 07/17/18 08:20; Admin Dose 20 MG; Start 07/06/18 at 14:00 Diagnostic Test (Pha) (Accu-Chek) 1 ea 02 XX Last administered on 07/14/18 02:30; Admin Dose 1 EA; Start 07/07/18 at 02:00 Insulin Glargine (Lantus) 19 units DAILY@2000 SC Last administered on 07/17/18 20:59; Admin Dose 19 UNITS; Start 07/06/18 at 20:00 Insulin Aspart (Novolog Insulin Pen) 5 unit WITH MEALS SC Last administered on 2/8/19at 18:03; Admin Dose 5 UNIT; Start 07/06/18 at 18:00 Insulin Aspart (Novolog Insulin Pen) NOVOLOG *MILD* ALGORITHM WITH MEALS BEDTIME SC Last administered on 07/16/18 17:31; Admin Dose 1 UNIT; Start 06/10 01/25 at 18:00 Miscellaneous Information 1 ea NOTE XX ; Start 07/06/18 at 14:30 Glucose (Glutose) 15 gm Q15M PRN PO DECREASED GLUCOSE; Start 07/06/18 at 14:30 Glucose (Glutose) 22.5 gm Q15M PRN PO DECREASED GLUCOSE; Start 07/06/18 at 14:30 Dextrose (D50w Syringe) 25 ml Q15M PRN IV DECREASED GLUCOSE; Start 07/06/18 at 14:30 Dextrose (D50w Syringe) 50 ml Q15M PRN IV DECREASED GLUCOSE; Start 07/06/18 at 14:30 Glucagon (Glucagen) 1 mg Q15M PRN IM DECREASED GLUCOSE; Start 07/06/18 at 14:30 Glucose (Glutose) 15 gm Q15M PRN BUCCAL DECREASED GLUCOSE; Start 07/06/18 at 14:30 Labetalol HCl (Labetalol) 10 mg Q4 PRN IV sbp >160 Last administered on 07/09/18at 04:19; Admin Dose 10 MG; Start 07/06/18 at 15:00 Atorvastatin Calcium (Lipitor) 80 mg HS PO Last administered on 07/17/18 20:45; Admin Dose 80 MG; Start 07/06/18 at 21:00 Isosorbide Dinitrate (Isordil) 20 mg TID PO Last administered on 07/17/18 20:44; Admin Dose 20 MG; Start 07/06/18 at 21:00 Carvedilol (Coreg) 3.125 mg BID PO Last administered on 07/17/18 20:44; Admin Dose 3.125 MG; Start 07/08/18 at 09:00 Hydralazine HCl (Apresoline) 50 mg TID PO Last administered on 07/17/18 20:45; Admin Dose 50 MG; Start 07/08/18 at 09:00 Morphine Sulfate (morphine) 6 mg Q4H PRN PO SEVERE PAIN LEVEL 7-10 Last administered on 07/10/18at 16:48; Admin Dose 6 MG; Start 07/08/18 at 22:00 Acetylcysteine (Nac) 600 mg BID PO Last administered on 07/17/18 20:43; Admin Dose 600 MG; Start 07/09/18 at 09:00 Amlodipine Besylate (Norvasc) 10 mg DAILY PO Last administered on 07/17/18 09:51; Admin Dose 10 MG; Start 07/09/18 at 09:00 Ticagrelor (Brilinta) 90 mg BID PO Last administered on 07/17/18 21:00; Admin Dose 90 MG; Start 07/10/18 at 09:00 Albuterol/ Ipratropium (Duoneb) 3 ml Q6H RESP THERAPY HHN Last administered on 07/18/18 02:01; Admin Dose 3 ML; Start 07/12/18 at 16:30 Albuterol/ Ipratropium (Duoneb) 3 ml Q6H RESP THERAPY PRN HHN wheezing; Start 07/12/18 at 16:30 Ranolazine (Ranexa) 500 mg Q12 PO Last administered on 07/17/18 20:45; Admin Dose 500 MG; Start 07/12/18 at 21:00 Heparin Sodium (Porcine) (Heparin (1000 Units/ml)) 4,000 unit PER PROTOCOL PRN IV aPTT<47; Start 07/12/18 at 19:00 Heparin Sodium (Porcine) 250 ml @ 10 mls/hr PER PROTOCOL IV Last administered on 07/12/18 20:23; Admin Dose 10 MLS/HR; Start 07/12/18 at 19:30; Status Hold Polyethylene Glycol (Miralax) 17 gm DAILY PRN NGT CONSTIPATION Last administered on 07/14/18 08:02; Admin Dose 17 GM; Start 07/13/18 at 18:00 Senna (Senokot) 1 tab BID PRN PO CONSTIPATION; Start 07/14/18 at 19:30 Sodium Chloride (Deep Sea) 2 spray Q4HWA PRN NASAL congestion Last administered on 07/16/18 05:19; Admin Dose 2 SPRAY; Start 07/15/18 at 18:00 DANI BETANCOURT DO Jul 18, 2018 07:44
[2018-07-18] MEDS: INSULIN ASPART [NOVOLOG] 3 ML PEN SC SCH ×7 (07:54→20:29)
--- NOTE | 2018-07-18 08:48 | PN ---
Date/Time of Note Date/Time of Note DATE: 07/18/18 TIME: 08:48 Assessment/Plan VTE Prophylaxis Risk score (from Ns)>0 risk: 3 SCD applied (from Ns): Yes Pharmacological prophylaxis: other Lines/Catheters IV Catheter Type (from Nrs): Saline Lock Urinary Cath still in place: No Assessment/Plan Assessment/Plan 1. Acute kidney injury on CKD - Cr continues to improve daily - ADITHYA Secondary to contrast-associated nephropathy and given proteinuria has CKD component from diabetic nephropathy - Nephrology consultation appreciated. Renal function continues to improved but recommending to hold off on PCI at this time - will continue monitoring and avoid nephrotoxic agents 2. Non-ST elevated PR s/p PCI- stable - Remains asymptomatic. - Continue on DAPT - Cardiology on board and appreciate recommendations. Will need repeat PCI given stenosis of left circumflex stent prior to discharge once renal function normalizes - Patient underwent cardiac cath received stent x3 in the RCA 3. Anemia - continues to fluctuate but no active bleeding appreciate. Will continue to monitor given on Brilinta and aspirin 4. Diabetes mellitus - Insulin while in house 5. Hypertension - stable 6. JUAN JOSÉ - will need outpatient pulm follow up for sleep study - refusing CPAP 7. Disposition - Continue monitoring for improvement in renal function. Will need PCI prior to discharge Result Diagram: 07/18/18 0531 07/18/18 0531 Results 24hrs Laboratory Tests Test 07/17/18 12:21 07/17/18 17:51 07/17/18 20:42 07/18/18 05:31 Bedside Glucose 109 116 129 White Blood Count 7.2 Red Blood Count 2.91 L Hemoglobin 8.4 L Hematocrit 26.2 L Mean Corpuscular Volume 90.0 Mean Corpuscular 28.9 L Hemoglobin Mean Corpuscular 32.1 Hemoglobin Concent Red Cell Distribution 13.2 Width Platelet Count 312 Mean Platelet Volume 10.6 H Immature Granulocytes % 0.600 H Neutrophils % 65.0 Lymphocytes % 22.1 Monocytes % 9.1 Eosinophils % 2.5 Basophils % 0.7 Nucleated Red Blood 0.0 Cells % Immature Granulocytes # 0.040 H Neutrophils # 4.7 Lymphocytes # 1.6 Monocytes # 0.7 Eosinophils # 0.2 Basophils # 0.1 Nucleated Red Blood 0.0 Cells # Sodium Level 137 Potassium Level 4.7 Chloride Level 107 Carbon Dioxide Level 18 L Anion Gap 12 Blood Urea Nitrogen 52 H Creatinine 4.00 H Est Glomerular Filtrat 15 L Rate mL/min Glucose Level 108 Calcium Level 8.8 Phosphorus Level 5.5 H Magnesium Level 2.0 Test 07/18/18 07:53 Bedside Glucose 114 Subjective 24 Hr Interval Summary Free Text/Dictation Patient denies any issues and remains stable. No acute overnight events Exam/Review of Systems Exam Vitals Vital Signs Date Temp Pulse Resp B/P (MAP) Pulse Ox O2 O2 Flow FiO2 Time Delivery Rate 07/18/18 68 08:01 07/18/18 97.8 20 138/63 97 Room Air 07:57 (88) 07/18/18 21 02:02 07/15/18 2.0 13:55 Intake and Output 07/17/18 07/17/18 07/18/18 1515:00 23:00 07:00 IntakeIntake Total 800 ml 600 ml BalanceBalance 800 ml 600 ml Exam General: no acute distress. answering questions appropriately Head: Normocephalic atraumatic Neck: Supple Respiratory: Clear to auscultation bilaterally. no wheezing or rhonchi Cardiovascular: regular rate and rhythm, no obvious murmurs Gastrointestinal: soft, non-tender to palpation, bowel sounds heard. Neurological: Moves all extremities spontaneously Skin: No new skin lesions Results Results 24hrs Laboratory Tests Test 07/17/18 12:21 07/17/18 17:51 07/17/18 20:42 07/18/18 05:31 Bedside Glucose 109 116 129 White Blood Count 7.2 Red Blood Count 2.91 L Hemoglobin 8.4 L Hematocrit 26.2 L Mean Corpuscular Volume 90.0 Mean Corpuscular 28.9 L Hemoglobin Mean Corpuscular 32.1 Hemoglobin Concent Red Cell Distribution 13.2 Width Platelet Count 312 Mean Platelet Volume 10.6 H Immature Granulocytes % 0.600 H Neutrophils % 65.0 Lymphocytes % 22.1 Monocytes % 9.1 Eosinophils % 2.5 Basophils % 0.7 Nucleated Red Blood 0.0 Cells % Immature Granulocytes # 0.040 H Neutrophils # 4.7 Lymphocytes # 1.6 Monocytes # 0.7 Eosinophils # 0.2 Basophils # 0.1 Nucleated Red Blood 0.0 Cells # Sodium Level 137 Potassium Level 4.7 Chloride Level 107 Carbon Dioxide Level 18 L Anion Gap 12 Blood Urea Nitrogen 52 H Creatinine 4.00 H Est Glomerular Filtrat 15 L Rate mL/min Glucose Level 108 Calcium Level 8.8 Phosphorus Level 5.5 H Magnesium Level 2.0 Test 07/18/18 07:53 Bedside Glucose 114 Medications Medication Current Medications IV Flush (NS 3 ml) 3 ml PER PROTOCOL IV ; Start 07/06/18 at 13:00 Ondansetron HCl (Zofran Inj) 4 mg Q6H PRN IV NAUSEA/VOMITING Last administered on 07/10/18 16:48; Admin Dose 4 MG; Start 07/06/18 at 13:00 Aspirin (Aspirin) 81 mg DAILY PO Last administered on 07/17/18 09:50; Admin Dose 81 MG; Start 07/07/18 at 09:00 Nitroglycerin (Nitroglycerin (Sl Tab) 0.4 Mg) 1 tab Q5M PRN SL .CHEST PAIN; Start 07/06/18 at 13:00 Acetaminophen (Tylenol Tab) 650 mg Q6H PRN PO .PAIN 1-3 OR TEMP; Start 07/06/18 at 13:00 Acetaminophen/ Hydrocodone Bitart ([place] (5/325)) 1 tab Q6H PRN PO .PAIN 4-6 Last administered on 07/10/18 12:00; Admin Dose 1 TAB; Start 07/06/18 at 13:00 Famotidine (Pepcid) 20 mg DAILY PO Last administered on 07/17/18 08:20; Admin Dose 20 MG; Start 07/06/18 at 14:00 Diagnostic Test (Pha) (Accu-Chek) 1 ea 02 XX Last administered on 07/14/18 02:30; Admin Dose 1 EA; Start 07/07/18 at 02:00 Insulin Glargine (Lantus) 19 units DAILY@2000 SC Last administered on 07/17/18 20:59; Admin Dose 19 UNITS; Start 07/06/18 at 20:00 Insulin Aspart (Novolog Insulin Pen) 5 unit WITH MEALS SC Last administered on 07/17/18 18:03; Admin Dose 5 UNIT; Start 07/06/18 at 18:00 Insulin Aspart (Novolog Insulin Pen) NOVOLOG *MILD* ALGORITHM WITH MEALS BEDTIME SC Last administered on 07/16/18 17:31; Admin Dose 1 UNIT; Start 07/06/18 at 18:00 Miscellaneous Information 1 ea NOTE XX ; Start 07/06/18 at 14:30 Glucose (Glutose) 15 gm Q15M PRN PO DECREASED GLUCOSE; Start 07/06/18 at 14:30 Glucose (Glutose) 22.5 gm Q15M PRN PO DECREASED GLUCOSE; Start 07/06/18 at 14:30 Dextrose (D50w Syringe) 25 ml Q15M PRN IV DECREASED GLUCOSE; Start 07/06/18 at 14:30 Dextrose (D50w Syringe) 50 ml Q15M PRN IV DECREASED GLUCOSE; Start 07/06/18 at 14:30 Glucagon (Glucagen) 1 mg Q15M PRN IM DECREASED GLUCOSE; Start 07/06/18 at 14:30 Glucose (Glutose) 15 gm Q15M PRN BUCCAL DECREASED GLUCOSE; Start 07/06/18 at 14:30 Labetalol HCl (Labetalol) 10 mg Q4 PRN IV sbp >160 Last administered on 07/09/18at 04:19; Admin Dose 10 MG; Start 07/06/18 at 15:00 Atorvastatin Calcium (Lipitor) 80 mg HS PO Last administered on 07/17/18 20:45; Admin Dose 80 MG; Start 07/06/18 at 21:00 Isosorbide Dinitrate (Isordil) 20 mg TID PO Last administered on 07/17/18 20:44; Admin Dose 20 MG; Start 07/06/18 at 21:00 Carvedilol (Coreg) 3.125 mg BID PO Last administered on 07/17/18 20:44; Admin Dose 3.125 MG; Start 07/08/18 at 09:00 Hydralazine HCl (Apresoline) 50 mg TID PO Last administered on 07/17/18 20:45; Admin Dose 50 MG; Start 07/08/18 at 09:00 Morphine Sulfate (morphine) 6 mg Q4H PRN PO SEVERE PAIN LEVEL 7-10 Last administered on 07/10/18 16:48; Admin Dose 6 MG; Start 07/08/18 at 22:00 Acetylcysteine (Nac) 600 mg BID PO Last administered on 07/17/18 20:43; Admin Dose 600 MG; Start 07/09/18 at 09:00 Amlodipine Besylate (Norvasc) 10 mg DAILY PO Last administered on 07/17/18 09:51; Admin Dose 10 MG; Start 07/09/18 at 09:00 Ticagrelor (Brilinta) 90 mg BID PO Last administered on 07/17/18 21:00; Admin Dose 90 MG; Start 07/10/18 at 09:00 Albuterol/ Ipratropium (Duoneb) 3 ml Q6H RESP THERAPY HHN Last administered on 07/18/18 08:35; Admin Dose 3 ML; Start 07/12/18 at 16:30 Albuterol/ Ipratropium (Duoneb) 3 ml Q6H RESP THERAPY PRN HHN wheezing; Start 07/12/18 at 16:30 Ranolazine (Ranexa) 500 mg Q12 PO Last administered on 07/17/18 20:45; Admin Dose 500 MG; Start 07/12/18 at 21:00 Heparin Sodium (Porcine) (Heparin (1000 Units/ml)) 4,000 unit PER PROTOCOL PRN IV aPTT<47; Start 07/12/18 at 19:00 Heparin Sodium (Porcine) 250 ml @ 10 mls/hr PER PROTOCOL IV Last administered on 07/12/18 20:23; Admin Dose 10 MLS/HR; Start 07/12/18 at 19:30; Status Hold Polyethylene Glycol (Miralax) 17 gm DAILY PRN NGT CONSTIPATION Last administered on 07/14/18 08:02; Admin Dose 17 GM; Start 07/13/18 at 18:00 Senna (Senokot) 1 tab BID PRN PO CONSTIPATION; Start 07/14/18 at 19:30 Sodium Chloride (Deep Sea) 2 spray Q4HWA PRN NASAL congestion Last administered on 07/16/18 05:19; Admin Dose 2 SPRAY; Start 07/15/18 at 18:00 AVELINO WHITE MD Jul 18, 2018 08:48
[2018-07-18] MEDS: FAMOTIDINE 20 MG TAB PO SCH (09:32)
[2018-07-18] MEDS: ACETYLCYSTEINE 600 MG CAP PO SCH ×2 (09:33→20:31)
[2018-07-18] MEDS: AMLODIPINE 10 MG TAB PO SCH (09:33)
[2018-07-18] MEDS: ASPIRIN 81 MG TAB PO SCH (09:34)
[2018-07-18] MEDS: ISOSORBIDE DINITRATE 20 MG TAB PO SCH ×3 (09:34→20:31)
[2018-07-18] MEDS: RANOLAZINE (SR) 500 MG TAB PO SCH ×2 (09:34→20:31)
[2018-07-18] MEDS: TICAGRELOR 90 MG TABLET PO SCH ×2 (09:39→20:32)
--- NOTE | 2018-07-18 16:45 | CONS ---
Assessment/Plan Assessment/Plan Hospital Course (Demo Recall) 62 yo with NSTEMI, s/p pci with 3 stents to the RCA. Course complicated by acute renal insufficiency. Recommendations: Will allow more time for renal recovery, creatinine has started to trend downward Continue asa and Brilinta Continue carvedilol and hydralazine, no alka/arb due to renal insufficiency Plan for PCI of the LCX for in-stent restenosis next week Consultation Date/Type/Reason Admit Date/Time Jul 06, 2018 at 12:07 Initial Consult Date 07/06/18 Type of Consult Cardiology Requesting Provider: SCOT MCKEON Date/Time of Note DATE: 07/18/18 TIME: 16:42 24 HR Interval Summary Free Text/Dictation Patient resting comfortably, I did not wake him. Exam/Review of Systems Vital Signs Vitals Vital Signs Date Temp Pulse Resp B/P (MAP) Pulse Ox O2 O2 Flow FiO2 Time Delivery Rate 07/18/18 98.0 75 16 133/63 98 Room Air 15:19 (86) 07/18/18 21 13:57 07/15/18 2.0 13:55 Intake and Output 07/17/18 07/17/18 07/18/18 1515:00 23:00 07:00 IntakeIntake Total 800 ml 600 ml BalanceBalance 800 ml 600 ml Labs Result Diagram: 07/18/1853007/18/18530 Results 24hrs Laboratory Tests Test 07/17/18 17:51 07/17/18 20:42 07/18/18 05:31 07/18/18 07:53 Bedside Glucose 116 129 114 White Blood Count 7.2 Red Blood Count 2.91 L Hemoglobin 8.4 L Hematocrit 26.2 L Mean Corpuscular Volume 90.0 Mean Corpuscular 28.9 L Hemoglobin Mean Corpuscular 32.1 Hemoglobin Concent Red Cell Distribution 13.2 Width Platelet Count 312 Mean Platelet Volume 10.6 H Immature Granulocytes % 0.600 H Neutrophils % 65.0 Lymphocytes % 22.1 Monocytes % 9.1 Eosinophils % 2.5 Basophils % 0.7 Nucleated Red Blood 0.0 Cells % Immature Granulocytes # 0.040 H Neutrophils # 4.7 Lymphocytes # 1.6 Monocytes # 0.7 Eosinophils # 0.2 Basophils # 0.1 Nucleated Red Blood 0.0 Cells # Sodium Level 137 Potassium Level 4.7 Chloride Level 107 Carbon Dioxide Level 18 L Anion Gap 12 Blood Urea Nitrogen 52 H Creatinine 4.00 H Est Glomerular Filtrat 15 L Rate mL/min Glucose Level 108 Calcium Level 8.8 Phosphorus Level 5.5 H Magnesium Level 2.0 Test 07/18/18 11:16 Bedside Glucose 195 Medications Medications Current Medications IV Flush (NS 3 ml) 3 ml PER PROTOCOL IV ; Start 07/06/18 at 13:00 Ondansetron HCl (Zofran Inj) 4 mg Q6H PRN IV NAUSEA/VOMITING Last administered on 07/10/18 16:48; Admin Dose 4 MG; Start 07/06/18 at 13:00 Aspirin (Aspirin) 81 mg DAILY PO Last administered on 07/18/18 09:34; Admin Dose 81 MG; Start 07/07/18 at 09:00 Nitroglycerin (Nitroglycerin (Sl Tab) 0.4 Mg) 1 tab Q5M PRN SL .CHEST PAIN; Start 07/06/18 at 13:00 Acetaminophen (Tylenol Tab) 650 mg Q6H PRN PO .PAIN 1-3 OR TEMP; Start 07/06/18 at 13:00 Acetaminophen/ Hydrocodone Bitart ([place] (5/325)) 1 tab Q6H PRN PO .PAIN 4-6 Last administered on 07/10/18 12:00; Admin Dose 1 TAB; Start 07/06/18 at 13:00 Famotidine (Pepcid) 20 mg DAILY PO Last administered on 07/18/18 09:32; Admin Dose 20 MG; Start 07/06/18 at 14:00 Diagnostic Test (Pha) (Accu-Chek) 1 ea 02 XX Last administered on 07/14/18 02:30; Admin Dose 1 EA; Start 07/07/18 at 02:00 Insulin Glargine (Lantus) 19 units DAILY@2000 SC Last administered on 07/17/18 20:59; Admin Dose 19 UNITS; Start 07/06/18 at 20:00 Insulin Aspart (Novolog Insulin Pen) 5 unit WITH MEALS SC Last administered on 07/18/18 11:20; Admin Dose 5 UNIT; Start 07/06/18 at 18:00 Insulin Aspart (Novolog Insulin Pen) NOVOLOG *MILD* ALGORITHM WITH MEALS BEDTIME SC Last administered on 2/9/19at 11:19; Admin Dose 2 UNIT; Start 07/06/18 at 18:00 Miscellaneous Information 1 ea NOTE XX ; Start 07/06/18 at 14:30 Glucose (Glutose) 15 gm Q15M PRN PO DECREASED GLUCOSE; Start 07/06/18 at 14:30 Glucose (Glutose) 22.5 gm Q15M PRN PO DECREASED GLUCOSE; Start 07/06/18 at 14 :30 Dextrose (D50w Syringe) 25 ml Q15M PRN IV DECREASED GLUCOSE; Start 07/06/18 at 14:30 Dextrose (D50w Syringe) 50 ml Q15M PRN IV DECREASED GLUCOSE; Start 07/06/18 at 14:30 Glucagon (Glucagen) 1 mg Q15M PRN IM DECREASED GLUCOSE; Start 07/06/18 at 14:30 Glucose (Glutose) 15 gm Q15M PRN BUCCAL DECREASED GLUCOSE; Start 07/06/18 at 14:30 Labetalol HCl (Labetalol) 10 mg Q4 PRN IV sbp >160 Last administered on 07/09/18at 04:19; Admin Dose 10 MG; Start 07/06/18 at 15:00 Atorvastatin Calcium (Lipitor) 80 mg HS PO Last administered on 07/17/18at 20:45; Admin Dose 80 MG; Start 07/06/18 at 21:00 Isosorbide Dinitrate (Isordil) 20 mg TID PO Last administered on 07/18/18at 12:32; Admin Dose 20 MG; Start 07/06/18 at 21:00 Carvedilol (Coreg) 3.125 mg BID PO Last administered on 07/18/18at 09:33; Admin D ose 3.125 MG; Start 07/08/18 at 09:00 Hydralazine HCl (Apresoline) 50 mg TID PO Last administered on 07/18/18 12:32; Admin Dose 50 MG; Start 07/08/18 at 09:00 Morphine Sulfate (morphine) 6 mg Q4H PRN PO SEVERE PAIN LEVEL 7-10 Last administered on 07/10/18at 16:48; Admin Dose 6 MG; Start 07/08/18 at 22:00 Acetylcysteine (Nac) 600 mg BID PO Last administered on 07/18/18at 09:33; Admin Dose 600 MG; Start 07/09/18 at 09:00 Amlodipine Besylate (Norvasc) 10 mg DAILY PO Last administered on 07/18/18 09 :33; Admin Dose 10 MG; Start 07/09/18 at 09:00 Ticagrelor (Brilinta) 90 mg BID PO Last administered on 07/18/18 09:39; Admin Dose 90 MG; Start 07/10/18 at 09:00 Albuterol/ Ipratropium (Duoneb) 3 ml Q6H RESP THERAPY HHN Last administered on 07/18/18 13:57; Admin Dose 3 ML; Start 07/12/18 at 16:30 Albuterol/ Ipratropium (Duoneb) 3 ml Q6H RESP THERAPY PRN HHN wheezing; Start 07/12/18 at 16:30 Ranolazine (Ranexa) 500 mg Q12 PO Last administered on 07/18/18 09:34; Admin Dose 500 MG; Start 07/12/18 at 21:00 Heparin Sodium (Porcine) (Heparin (1000 Units/ml)) 4,000 unit PER PROTOCOL PRN IV aPTT<47; Start 07/12/18 at 19:00 Heparin Sodium (Porcine) 250 ml @ 10 mls/hr PER PROTOCOL IV Last administered on 07/12/18 20:23; Admin Dose 10 MLS/HR; Start 07/12/18 at 19:30; Status Hold Polyethylene Glycol (Miralax) 17 gm DAILY PRN NGT CONSTIPATION Last administered on 07/14/18 08:02; Admin Dose 17 GM; Start 07/13/18 at 18:00 Senna (Senokot) 1 tab BID PRN PO CONSTIPATION; Start 07/14/18 at 19:30 Sodium Chloride (Deep Sea) 2 spray Q4HWA PRN NASAL congestion Last administered on 07/16/18 05:19; Admin Dose 2 SPRAY; Start 07/15/18 at 18:00 SAM LERNER Jul 18, 2018 16:45
--- NOTE | 2018-07-18 18:02 | NUR ---
EOSS: PT SITTING UP IN CHAIR WITH AT BEDSIDE. DENIES CHEST PAIN OR DISCOMFORT AT THIS TIME. NO S/S OR RESPIRATORY DISTRESS PT ON 2L VIA NC. PT CLEAN AND DRY. PENDING LABS IN AM. FALL AND SAFETY PRECAUTIONS IMPLEMENTED, CALL LIGHT WITHIN REACH ABLE TO MAKE NEEDS KNOWN. BED IN LOWEST POSITION BRAKES LOCKED ROOM FREE OF CLUTTER. PERSONAL BELONGINGS PLACED CLOSE TO PATIENT. WILL ENDORSE TO QUILL LAYER RN ACCORDINGLY
[2018-07-18] MEDS: ATORVASTATIN 80 MG TAB PO SCH (20:31)
[2018-07-18] MEDS: INSULIN GLARGINE [LANTus] (100 UNITS/ML) SYG SC SCH (20:33)
[2018-07-19] VITALS (9 sets, daily range): BP systolic 127–161; BP diastolic 69–79; PULSE 67–76; RESP 18–20
[2018-07-19] MEDS: ALBUTEROL/IPRATROPIUM (NEB) 3 ML AMP HHN SCH ×4 (01:42→19:54)
[2018-07-19] MEDS: ACCU-CHEK XX SCH (02:00)
--- NOTE | 2018-07-19 06:00 | NUR ---
End of Shift Summary No change in pt condition. See pt assessment and EMAR.
--- NOTE | 2018-07-19 07:27 | PN ---
Date/Time of Note Date/Time of Note DATE: 07/19/18 TIME: 07:27 Assessment/Plan VTE Prophylaxis Risk score (from Ns)>0 risk: 4 SCD applied (from Ns): Yes Pharmacological prophylaxis: other Lines/Catheters [facility]from [facility] Saline Lock Urinary Cath still in place: No Assessment/Plan Hospital Course SUBJECTIVE: The patient remains stable. Urinary output has been improving. No other acute events noted. No hemoptysis, hematemesis or hematochezia. OBJECTIVE: HEENT: Head is normocephalic. NECK: Supple. HEART: Regular rate. LUNGS: Show diminished breath sounds at the base. ABDOMEN: Soft, nontender to palpation without rebound or guarding. EXTREMITIES: Negative for clubbing, cyanosis, no edema. DERMATOLOGIC: No rashes. MUSCULOSKELETAL: No joint effusion. NEUROLOGIC: No change in exam. MEDICATIONS: Reviewed. ASSESSMENT AND PLAN: 1. Nonoliguric acute kidney injury on top of chronic kidney disease stage IV with previous baseline creatinine of 3.0 mg/dL. Etiology of acute kidney injury is secondary to contrast-associated nephropathy. The patient's renal function has been fluctuating but appears to have stabilized in the last 48 hours. At this point, we would continue current treatment plans, supportive care, renally dose all medicines. We would defer any cardiac catheterization at this time. We will monitor renal function closely. No immediate need for renal replacement therapy at this time. 2. Chronic kidney disease stage IV with nephrotic range proteinuria. Etiology is secondary to diabetic nephropathy. The patient is currently in acute kidney injury as stated above. We would continue current treatment plan. Continue disease factor modification. 3. Anemia. Monitor hemoglobin and hematocrit levels. 4. Mineral bone disorder, monitor calcium and phosphorus levels. 5. Metabolic acidosis secondary to acute kidney injury and chronic kidney disease. Continue to monitor. 6. Diabetes. Continue current insulin regimen. 7. Coronary artery disease, status post percutaneous coronary intervention to the right coronary artery. Continue medical management. Defer further intervention at this time. 8. Hypertension. Continue current blood pressure regimen. Hold any SAMANTHA inhibitor or ARB at this time. Result Diagram: 07/19/18 0501 07/19/18 0501 Results 24hrs Laboratory Tests Test 07/18/18 07:53 07/18/18 11:16 07/18/18 16:50 07/18/18 20:28 Bedside Glucose 114 195 87 152 Test 07/19/18 05:01 White Blood Count 8.1 Red Blood Count 2.82 L Hemoglobin 8.1 L Hematocrit 25.6 L Mean Corpuscular Volume 90.8 Mean Corpuscular 28.7 L Hemoglobin Mean Corpuscular 31.6 L Hemoglobin Concent Red Cell Distribution 13.1 Width Platelet Count 307 Mean Platelet Volume 10.1 Immature Granulocytes % 1.000 H Neutrophils % 65.8 Lymphocytes % 21.8 Monocytes % 7.8 Eosinophils % 3.0 Basophils % 0.6 Nucleated Red Blood 0.0 Cells % Immature Granulocytes # 0.080 H Neutrophils # 5.3 Lymphocytes # 1.8 Monocytes # 0.6 Eosinophils # 0.2 Basophils # 0.1 Nucleated Red Blood 0.0 Cells # Sodium Level 135 Potassium Level 4.4 Chloride Level 111 H Carbon Dioxide Level 19 L Anion Gap 5 Blood Urea Nitrogen 48 H Creatinine 4.05 H Glucose Level 100 Calcium Level 8.5 Phosphorus Level 5.4 H Magnesium Level 1.9 Albumin 3.0 L Exam/Review of Systems Exam Vitals Vital Signs Date Temp Pulse Resp B/P (MAP) Pulse Ox O2 O2 Flow FiO2 Time Delivery Rate 07/19/18 67 04:00 07/19/18 97.8 20 161/75 93 04:00 (103) 07/19/18 21 01:42 07/18/18 Room Air 15:19 07/15/18 2.0 13:55 Intake and Output 07/18/18 07/18/18 07/19/18 1515:00 23:00 07:00 IntakeIntake Total 800 ml 500 ml BalanceBalance 800 ml 500 ml Results Results 24hrs Laboratory Tests Test 07/18/18 07:53 07/18/18 11:16 07/18/18 16:50 07/18/18 20:28 Bedside Glucose 114 195 87 152 Test 07/19/18 05:01 White Blood Count 8.1 Red Blood Count 2.82 L Hemoglobin 8.1 L Hematocrit 25.6 L Mean Corpuscular Volume 90.8 Mean Corpuscular 28.7 L Hemoglobin Mean Corpuscular 31.6 L Hemoglobin Concent Red Cell Distribution 13.1 Width Platelet Count 307 Mean Platelet Volume 10.1 Immature Granulocytes % 1.000 H Neutrophils % 65.8 Lymphocytes % 21.8 Monocytes % 7.8 Eosinophils % 3.0 Basophils % 0.6 Nucleated Red Blood 0.0 Cells % Immature Granulocytes # 0.080 H Neutrophils # 5.3 Lymphocytes # 1.8 Monocytes # 0.6 Eosinophils # 0.2 Basophils # 0.1 Nucleated Red Blood 0.0 Cells # Sodium Level 135 Potassium Level 4.4 Chloride Level 111 H Carbon Dioxide Level 19 L Anion Gap 5 Blood Urea Nitrogen 48 H Creatinine 4.05 H Glucose Level 100 Calcium Level 8.5 Phosphorus Level 5.4 H Magnesium Level 1.9 Albumin 3.0 L Medications Medication Current Medications IV Flush (NS 3 ml) 3 ml PER PROTOCOL IV ; Start 07/06/18 at 13:00 Ondansetron HCl (Zofran Inj) 4 mg Q6H PRN IV NAUSEA/VOMITING Last administered on 07/10/18 16:48; Admin Dose 4 MG; Start 07/06/18 at 13:00 Aspirin (Aspirin) 81 mg DAILY PO Last administered on 07/18/18 09:34; Admin Dose 81 MG; Start 07/07/18 at 09:00 Nitroglycerin (Nitroglycerin (Sl Tab) 0.4 Mg) 1 tab Q5M PRN SL .CHEST PAIN; Start 07/06/18 at 13:00 Acetaminophen (Tylenol Tab) 650 mg Q6H PRN PO .PAIN 1-3 OR TEMP; Start 07/06/18 at 13:00 Acetaminophen/ Hydrocodone Bitart ([place] (5/325)) 1 tab Q6H PRN PO .PAIN 4-6 Last administered on 07/10/18 12:00; Admin Dose 1 TAB; Start 07/06/18 at 13:00 Famotidine (Pepcid) 20 mg DAILY PO Last administered on 07/18/18 09:32; Admin Dose 20 MG; Start 07/06/18 at 14:00 Diagnostic Test (Pha) (Accu-Chek) 1 ea 02 XX Last administered on 07/14/18 02:30; Admin Dose 1 EA; Start 07/07/18 at 02:00 Insulin Glargine (Lantus) 19 units DAILY@2000 SC Last administered on 07/18/18 20:33; Admin Dose 19 UNITS; Start 07/06/18 at 20:00 Insulin Aspart (Novolog Insulin Pen) 5 unit WITH MEALS SC Last administered on 2/9/19at 17:19; Admin Dose 5 UNIT; Start 07/06/18 at 18:00 Insulin Aspart (Novolog Insulin Pen) NOVOLOG *MILD* ALGORITHM WITH MEALS BEDTI ME SC Last administered on 07/18/18at 11:19; Admin Dose 2 UNIT; Start 07/06/18 at 18:00 Miscellaneous Information 1 ea NOTE XX ; Start 07/06/18 at 14:30 Glucose (Glutose) 15 gm Q15M PRN PO DECREASED GLUCOSE; Start 07/06/18 at 14:30 Glucose (Glutose) 22.5 gm Q15M PRN PO DECREASED GLUCOSE; Start 07/06/18 at 14:30 Dextrose (D50w Syringe) 25 ml Q15M PRN IV DECREASED GLUCOSE; Start 07/06/18 at 14:30 Dextrose (D50w Syringe) 50 ml Q15M PRN IV DECREASED GLUCOSE; Start 07/06/18 at 14:30 Glucagon (Glucagen) 1 mg Q15M PRN IM DECREASED GLUCOSE; Start 07/06/18 at 14:30 Glucose (Glutose) 15 gm Q15M PRN BUCCAL DECREASED GLUCOSE; Start 07/06/18 at 14:30 Labetalol HCl (Labetalol) 10 mg Q4 PRN IV sbp >160 Last administered on 07/09/18at 04:19; Admin Dose 10 MG; Start 07/06/18 at 15:00 Atorvastatin Calcium (Lipitor) 80 mg HS PO Last administered on 07/18/18 20:31; Admin Dose 80 MG; Start 07/06/18 at 21:00 Isosorbide Dinitrate (Isordil) 20 mg TID PO Last administered on 07/18/18 20:31; Admin Dose 20 MG; Start 07/06/18 at 21:00 Carvedilol (Coreg) 3.125 mg BID PO Last administered on 07/18/18 20:31; Admin Dose 3.125 MG; Start 07/08/18 at 09:00 Hydralazine HCl (Apresoline) 50 mg TID PO Last administered on 07/18/18 20:30; Admin Dose 50 MG; Start 07/08/18 at 09:00 Morphine Sulfate (morphine) 6 mg Q4H PRN PO SEVERE PAIN LEVEL 7-10 Last administered on 07/10/18at 16:48; Admin Dose 6 MG; Start 07/08/18 at 22:00 Acetylcysteine (Nac) 600 mg BID PO Last administered on 07/18/18 20:31; Admin Dose 600 MG; Start 07/09/18 at 09:00 Amlodipine Besylate (Norvasc) 10 mg DAILY PO Last administered on 07/18/18 09:33; Admin Dose 10 MG; Start 07/09/18 at 09:00 Ticagrelor (Brilinta) 90 mg BID PO Last administered on 07/18/18 20:32; Admin Dose 90 MG; Start 07/10/18 at 09:00 Albuterol/ Ipratropium (Duoneb) 3 ml Q6H RESP THERAPY HHN Last administered on 07/19/18 01:42; Admin Dose 3 ML; Start 07/12/18 at 16:30 Albuterol/ Ipratropium (Duoneb) 3 ml Q6H RESP THERAPY PRN HHN wheezing; Start 07/12/18 at 16:30 Ranolazine (Ranexa) 500 mg Q12 PO Last administered on 07/18/18 20:31; Admin Dose 500 MG; Start 07/12/18 at 21:00 Heparin Sodium (Porcine) (Heparin (1000 Units/ml)) 4,000 unit PER PROTOCOL PRN IV aPTT<47; Start 07/12/18 at 19:00 Heparin Sodium (Porcine) 250 ml @ 10 mls/hr PER PROTOCOL IV Last administered on 07/12/18 20:23; Admin Dose 10 MLS/HR; Start 07/12/18 at 19:30; Status Hold Polyethylene Glycol (Miralax) 17 gm DAILY PRN NGT CONSTIPATION Last administered on 07/14/18 08:02; Admin Dose 17 GM; Start 07/13/18 at 18:00 Senna (Senokot) 1 tab BID PRN PO CONSTIPATION; Start 07/14/18 at 19:30 Sodium Chloride (Deep Sea) 2 spray Q4HWA PRN NASAL congestion Last administered on 07/16/18 05:19; Admin Dose 2 SPRAY; Start 07/15/18 at 18:00 DANI BETANCOURT DO Jul 19, 2018 07:27
[2018-07-19] MEDS: INSULIN ASPART [NOVOLOG] 3 ML PEN SC SCH ×7 (07:40→20:01)
--- NOTE | 2018-07-19 08:58 | PN ---
Date/Time of Note Date/Time of Note DATE: 07/19/18 TIME: 08:58 Assessment/Plan VTE Prophylaxis Risk score (from Nsg)>0 risk: 4 SCD applied (from Nsg): Yes Pharmacological prophylaxis: other Lines/Catheters IV Catheter Type (from Nrsg): Saline Lock Urinary Cath still in place: No Assessment/Plan Assessment/Plan 1. Acute kidney injury on CKD- stable - Cr appears to be stabilizing. Discussed with patient Dr. Benedict would like to perform PCI and will possibly need to start HD. Willing to undergo if needed. Will touch base with Nephrology tomorrow based on Cr results in the am - ADITHYA Secondary to contrast-associated nephropathy and given proteinuria has CKD component from diabetic nephropathy - Nephrology consultation appreciated. - will continue monitoring and avoid nephrotoxic agents 2. Non-ST elevated [place] s/p PCI- stable - Remains asymptomatic. - Continue on DAPT - Cardiology on board and appreciate recommendations. Would ideally like to perform PCI on Friday given patients length of stay. Will need repeat PCI given stenosis of left circumflex stent prior to discharge - Patient underwent cardiac cath received stent x3 in the RCA 3. Anemia - continues to fluctuate but no active bleeding appreciate. Will continue to monitor given on Brilinta and aspirin 4. Diabetes mellitus - Insulin while in house 5. Hypertension - stable 6. JUAN JOSÉ - will need outpatient pulm follow up for sleep study - refusing CPAP 7. Disposition - Continue monitoring renal function. If no significant improvement tomorrow, may need to discuss HD plans with Nephrology Result Diagram: 07/19/18 0501 07/19/18 0501 Results 24hrs Laboratory Tests Test 07/18/18 11:16 07/18/18 16:50 07/18/18 20:28 07/19/18 05:01 Bedside Glucose 195 87 152 White Blood Count 8.1 Red Blood Count 2.82 L Hemoglobin 8.1 L Hematocrit 25.6 L Mean Corpuscular 90.8 Volume Mean Corpuscular 28.7 L Hemoglobin Mean Corpuscular 31.6 L Hemoglobin Concent Red Cell Distribution 13.1 Width Platelet Count 307 Mean Platelet Volume 10.1 Immature Granulocytes 1.000 H % Neutrophils % 65.8 Lymphocytes % 21.8 Monocytes % 7.8 Eosinophils % 3.0 Basophils % 0.6 Nucleated Red Blood 0.0 Cells % Immature Granulocytes 0.080 H # Neutrophils # 5.3 Lymphocytes # 1.8 Monocytes # 0.6 Eosinophils # 0.2 Basophils # 0.1 Nucleated Red Blood 0.0 Cells # Sodium Level 135 Potassium Level 4.4 Chloride Level 111 H Carbon Dioxide Level 19 L Anion Gap 5 Blood Urea Nitrogen 48 H Creatinine 4.05 H Glucose Level 100 Calcium Level 8.5 Phosphorus Level 5.4 H Magnesium Level 1.9 Albumin 3.0 L Test 07/19/18 07:39 Bedside Glucose 102 Subjective 24 Hr Interval Summary Free Text/Dictation Patient doing well and no acute distress. Had an episode of dizziness this am but states it was after he was given his medications. Has resolved. Exam/Review of Systems Exam Vitals Vital Signs Date Temp Pulse Resp B/P (MAP) Pulse Ox O2 O2 Flow FiO2 Time Delivery Rate 07/19/18 76 18 98 21 08:37 07/19/18 98.0 143/79 07:48 (100) 07/19/18 Nasal 2.0 07:27 Cannula Intake and Output 07/18/18 07/18/18 07/19/18 1515:00 23:00 07:00 IntakeIntake Total 800 ml 500 ml BalanceBalance 800 ml 500 ml Exam General: no acute distress. answering questions appropriately Head: Normocephalic atraumatic Neck: Supple Respiratory: Clear to auscultation bilaterally. no wheezing or rhonchi Cardiovascular: regular rate and rhythm, no obvious murmurs Gastrointestinal: soft, non-tender to palpation, bowel sounds heard. Neurological: Moves all extremities spontaneously Skin: No new skin lesions Results Results 24hrs Laboratory Tests Test 07/18/18 11:16 07/18/18 16:50 07/18/18 20:28 07/19/18 05:01 Bedside Glucose 195 87 152 White Blood Count 8.1 Red Blood Count 2.82 L Hemoglobin 8.1 L Hematocrit 25.6 L Mean Corpuscular 90.8 Volume Mean Corpuscular 28.7 L Hemoglobin Mean Corpuscular 31.6 L Hemoglobin Concent Red Cell Distribution 13.1 Width Platelet Count 307 Mean Platelet Volume 10.1 Immature Granulocytes 1.000 H % Neutrophils % 65.8 Lymphocytes % 21.8 Monocytes % 7.8 Eosinophils % 3.0 Basophils % 0.6 Nucleated Red Blood 0.0 Cells % Immature Granulocytes 0.080 H # Neutrophils # 5.3 Lymphocytes # 1.8 Monocytes # 0.6 Eosinophils # 0.2 Basophils # 0.1 Nucleated Red Blood 0.0 Cells # Sodium Level 135 Potassium Level 4.4 Chloride Level 111 H Carbon Dioxide Level 19 L Anion Gap 5 Blood Urea Nitrogen 48 H Creatinine 4.05 H Glucose Level 100 Calcium Level 8.5 Phosphorus Level 5.4 H Magnesium Level 1.9 Albumin 3.0 L Test 07/19/18 07:39 Bedside Glucose 102 Medications Medication Current Medications IV Flush (NS 3 ml) 3 ml PER PROTOCOL IV ; Start 07/06/18 at 13:00 Ondansetron HCl (Zofran Inj) 4 mg Q6H PRN IV NAUSEA/VOMITING Last administered on 07/10/18 16:48; Admin Dose 4 MG; Start 07/06/18 at 13:00 Aspirin (Aspirin) 81 mg DAILY PO Last administered on 07/18/18 09:34; Admin Dose 81 MG; Start 07/07/18 at 09:00 Nitroglycerin (Nitroglycerin (Sl Tab) 0.4 Mg) 1 tab Q5M PRN SL .CHEST PAIN; Start 07/06/18 at 13:00 Acetaminophen (Tylenol Tab) 650 mg Q6H PRN PO .PAIN 1-3 OR TEMP; Start 07/06/18 at 13:00 Acetaminophen/ Hydrocodone Bitart ([place] (5/325)) 1 tab Q6H PRN PO .PAIN 4-6 Last administered on 07/10/18 12:00; Admin Dose 1 TAB; Start 07/06/18 at 13:00 Famotidine (Pepcid) 20 mg DAILY PO Last administered on 07/18/18 09:32; Admin Dose 20 MG; Start 07/06/18 at 14:00 Diagnostic Test (Pha) (Accu-Chek) 1 ea 02 XX Last administered on 07/14/18 02:3 0; Admin Dose 1 EA; Start 07/07/18 at 02:00 Insulin Glargine (Lantus) 19 units DAILY@2000 SC Last administered on 07/18/18 20:33; Admin Dose 19 UNITS; Start 07/06/18 at 20:00 Insulin Aspart (Novolog Insulin Pen) 5 unit WITH MEALS SC Last administered on 07/19/18 07:45; Admin Dose 5 UNIT; Start 07/06/18 at 18:00 Insulin Aspart (Novolog Insulin Pen) NOVOLOG *MILD* ALGORITHM WITH MEALS BEDTIME SC Last administered on 07/18/18at 11:19; Admin Dose 2 UNIT; Start 07/06/18 at 18:00 Miscellaneous Information 1 ea NOTE XX ; Start 07/06/18 at 14:30 Glucose (Glutose) 15 gm Q15M PRN PO DECREASED GLUCOSE; Start 07/06/18 at 14:30 Glucose (Glutose) 22.5 gm Q15M PRN PO DECREASED GLUCOSE; Start 07/06/18 at 14:30 Dextrose (D50w Syringe) 25 ml Q15M PRN IV DECREASED GLUCOSE; Start 07/06/18 at 14:30 Dextrose (D50w Syringe) 50 ml Q15M PRN IV DECREASED GLUCOSE; Start 07/06/18 at 14:30 Glucagon (Glucagen) 1 mg Q15M PRN IM DECREASED GLUCOSE; Start 07/06/18 at 14:30 Glucose (Glutose) 15 gm Q15M PRN BUCCAL DECREASED GLUCOSE; Start 07/06/18 at 14:30 Labetalol HCl (Labetalol) 10 mg Q4 PRN IV sbp >160 Last administered on 07/09/18at 04:19; Admin Dose 10 MG; Start 07/06/18 at 15:00 Atorvastatin Calcium (Lipitor) 80 mg HS PO Last administered on 07/18/18at 20:31; Admin Dose 80 MG; Start 07/06/18 at 21:00 Isosorbide Dinitrate (Isordil) 20 mg TID PO Last administered on 07/18/18 20:31; Admin Dose 20 MG; Start 07/06/18 at 21:00 Carvedilol (Coreg) 3.125 mg BID PO Last administered on 07/18/18 20:31; Admin Dose 3.125 MG; Start 07/08/18 at 09:00 Hydralazine HCl (Apresoline) 50 mg TID PO Last administered on 07/18/18at 20:30; Admin Dose 50 MG; Start 07/08/18 at 09:00 Morphine Sulfate (morphine) 6 mg Q4H PRN PO SEVERE PAIN LEVEL 7-10 Last administered on 07/10/18at 16:48; Admin Dose 6 MG; Start 07/08/18 at 22:00 Acetylcysteine (Nac) 600 mg BID PO Last administered on 07/18/18 20:31; Admin Dose 600 MG; Start 07/09/18 at 09:00 Amlodipine Besylate (Norvasc) 10 mg DAILY PO Last administered on 07/18/18 09:33; Admin Dose 10 MG; Start 07/09/18 at 09:00 Ticagrelor (Brilinta) 90 mg BID PO Last administered on 07/18/18 20:32; Admin Dose 90 MG; Start 07/10/18 at 09:00 Albuterol/ Ipratropium (Duoneb) 3 ml Q6H RESP THERAPY HHN Last administered on 07/19/18 08:27; Admin Dose 3 ML; Start 07/12/18 at 16:30 Albuterol/ Ipratropium (Duoneb) 3 ml Q6H RESP THERAPY PRN HHN wheezing; Start 07/12/18 at 16:30 Ranolazine (Ranexa) 500 mg Q12 PO Last administered on 07/18/18 20:31; Admin Dose 500 MG; Start 07/12/18 at 21:00 Heparin Sodium (Porcine) (Heparin (1000 Units/ml)) 4,000 unit PER PROTOCOL PRN IV aPTT<47; Start 07/12/18 at 19:00 Heparin Sodium (Porcine) 250 ml @ 10 mls/hr PER PROTOCOL IV Last administered on 07/12/18 20:23; Admin Dose 10 MLS/HR; Start 07/12/18 at 19:30; Status Hold Polyethylene Glycol (Miralax) 17 gm DAILY PRN NGT CONSTIPATION Last administered on 07/14/18 08:02; Admin Dose 17 GM; Start 07/13/18 at 18:00 Senna (Senokot) 1 tab BID PRN PO CONSTIPATION; Start 07/14/18 at 19:30 Sodium Chloride (Deep Sea) 2 spray Q4HWA PRN NASAL congestion Last administered on 07/16/18 05:19; Admin Dose 2 SPRAY; Start 07/15/18 at 18:00 AVELINO WHITE MD Jul 19, 2018 08:58
[2018-07-19] MEDS: ACETYLCYSTEINE 600 MG CAP PO SCH ×2 (09:09→20:22)
[2018-07-19] MEDS: RANOLAZINE (SR) 500 MG TAB PO SCH ×2 (09:10→20:22)
[2018-07-19] MEDS: ISOSORBIDE DINITRATE 20 MG TAB PO SCH ×3 (09:10→20:22)
[2018-07-19] MEDS: AMLODIPINE 10 MG TAB PO SCH (09:10)
[2018-07-19] MEDS: ASPIRIN 81 MG TAB PO SCH (09:11)
[2018-07-19] MEDS: FAMOTIDINE 20 MG TAB PO SCH (09:11)
[2018-07-19] MEDS: TICAGRELOR 90 MG TABLET PO SCH ×2 (09:50→20:30)
--- NOTE | 2018-07-19 15:55 | CONS ---
Assessment/Plan Assessment/Plan Hospital Course (Demo Recall) 62 yo with NSTEMI, s/p pci with 3 stents to the RCA. Course complicated by acute renal insufficiency. Baseline cr was 3, and his creatinine has leveled off around 4. Recommendations: Will discuss with Dr. Benedict -- given poor recovery of renal function, patient risk of requiring permanent ESRD is significant if he undergoes repeat PCI Continue asa and Brilinta Continue carvedilol and hydralazine, no alka/arb due to renal insufficiency Consultation Date/Type/Reason Admit Date/Time Jul 06, 2018 at 12:07 Initial Consult Date 07/06/18 Type of Consult Cardiology Requesting Provider: SCOT MCKEON Date/Time of Note DATE: 07/19/18 TIME: 15:53 24 HR Interval Summary Free Text/Dictation Patient has no chest pain, no dyspnea. Exam/Review of Systems Vital Signs Vitals Vital Signs Date Temp Pulse Resp B/P (MAP) Pulse Ox O2 O2 Flow FiO2 Time Delivery Rate 07/19/18 73 18 98 21 14:50 07/19/18 98.0 127/71 11:38 (89) 07/19/18 Nasal 2.0 07:27 Cannula Intake and Output 07/18/18 07/18/18 07/19/18 1515:00 23:00 07:00 IntakeIntake Total 800 ml 500 ml BalanceBalance 800 ml 500 ml Exam Constitutional: alert, oriented, other (obese) Psych: nl mood/affect Head: normocephalic, atraumatic Eyes: nl conjunctiva, EOMI, nl lids, nl sclera ENMT: nl external ears & nose, nl lips & teeth Neck: supple; No bruits Respiratory: clear to auscultation, normal air movement Cardiovascular: regular rate and rhythm; No murmurs/extra sounds Gastrointestinal: soft, nl liver, spleen, non-tender Extremities: edema (mild bilateral edema) Neurological: nl mental status, nl speech Skin: No rash or lesions Labs Result Diagram: 07/19/18 0501 07/19/18 0501 Results 24hrs Laboratory Tests Test 07/18/18 16:50 07/18/18 20:28 07/19/18 05:01 07/19/18 07:39 Bedside Glucose 87 152 102 White Blood Count 8.1 Red Blood Count 2.82 L Hemoglobin 8.1 L Hematocrit 25.6 L Mean Corpuscular 90.8 Volume Mean Corpuscular 28.7 L Hemoglobin Mean Corpuscular 31.6 L Hemoglobin Concent Red Cell Distribution 13.1 Width Platelet Count 307 Mean Platelet Volume 10.1 Immature Granulocytes 1.000 H % Neutrophils % 65.8 Lymphocytes % 21.8 Monocytes % 7.8 Eosinophils % 3.0 Basophils % 0.6 Nucleated Red Blood 0.0 Cells % Immature Granulocytes 0.080 H # Neutrophils # 5.3 Lymphocytes # 1.8 Monocytes # 0.6 Eosinophils # 0.2 Basophils # 0.1 Nucleated Red Blood 0.0 Cells # Sodium Level 135 Potassium Level 4.4 Chloride Level 111 H Carbon Dioxide Level 19 L Anion Gap 5 Blood Urea Nitrogen 48 H Creatinine 4.05 H Glucose Level 100 Calcium Level 8.5 Phosphorus Level 5.4 H Magnesium Level 1.9 Albumin 3.0 L Test 07/19/18 11:46 Bedside Glucose 119 Medications Medications Current Medications IV Flush (NS 3 ml) 3 ml PER PROTOCOL IV ; Start 07/06/18 at 13:00 Ondansetron HCl (Zofran Inj) 4 mg Q6H PRN IV NAUSEA/VOMITING Last administered on 07/10/18at 16:48; Admin Dose 4 MG; Start 07/06/18 at 13:00 Aspirin (Aspirin) 81 mg DAILY PO Last administered on 07/19/18at 09:11; Admin Dose 81 MG; Start 07/07/18 at 09:00 Nitroglycerin (Nitroglycerin (Sl Tab) 0.4 Mg) 1 tab Q5M PRN SL .CHEST PAIN; Start 07/06/18 at 13:00 Acetaminophen (Tylenol Tab) 650 mg Q6H PRN PO .PAIN 1-3 OR TEMP; Start 07/06/18 at 13:00 Acetaminophen/ Hydrocodone Bitart ([place] (5/325)) 1 tab Q6H PRN PO .PAIN 4-6 Last administered on 07/10/18at 12:00; Admin Dose 1 TAB; Start 07/06/18 at 13:00 Famotidine (Pepcid) 20 mg DAILY PO Last administered on 07/19/18at 09:11; Admin Dose 20 MG; Start 07/06/18 at 14:00 Diagnostic Test (Pha) (Accu-Chek) 1 02 XX Last administered on 07/14/18at 02:30; Admin Dose 1 EA; Start 07/07/18 at 02:00 Insulin Glargine (Lantus) 19 units DAILY@2000 SC Last administered on 07/18/18 20:33; Admin Dose 19 UNITS; Start 07/06/18 at 20:00 Insulin Aspart (Novolog Insulin Pen) 5 unit WITH MEALS SC Last administered on 07/19/18 11:57; Admin Dose 5 UNIT; Start 07/06/18 at 18:00 Insulin Aspart (Novolog Insulin Pen) NOVOLOG *MILD* ALGORITHM WITH MEALS BEDTIME SC Last administered on 07/18/18 11:19; Admin Dose 2 UNIT; Start 07/06/18 at 18:00 Miscellaneous Information 1 ea NOTE XX ; Start 07/06/18 at 14:30 Glucose (Glutose) 15 gm Q15M PRN PO DECREASED GLUCOSE; Start 07/06/18 at 14:30 Glucose (Glutose) 22.5 gm Q15M PRN PO DECREASED GLUCOSE; Start 07/06/18 at 14:30 Dextrose (D50w Syringe) 25 ml Q15M PRN IV DECREASED GLUCOSE; Start 07/06/18 at 14:30 Dextrose (D50w Syringe) 50 ml Q15M PRN IV DECREASED GLUCOSE; Start 07/06/18 at 14:30 Glucagon (Glucagen) 1 mg Q15M PRN IM DECREASED GLUCOSE; Start 07/06/18 at 14:30 Glucose (Glutose) 15 gm Q15M PRN BUCCAL DECREASED GLUCOSE; Start 07/06/18 at 14:30 Labetalol HCl (Labetalol) 10 mg Q4 PRN IV sbp >160 Last administered on 07/09/18at 04:19; Admin Dose 10 MG; Start 07/06/18 at 15:00 Atorvastatin Calcium (Lipitor) 80 mg HS PO Last administered on 07/18/18at 20:31; Admin Dose 80 MG; Start 07/06/18 at 21:00 Isosorbide Dinitrate (Isordil) 20 mg TID PO Last administered on 07/19/18at 12:16; Admin Dose 20 MG; Start 07/06/18 at 21:00 Carvedilol (Coreg) 3.125 mg BID PO Last administered on 07/19/18at 09:10; Admin Dose 3.125 MG; Start 07/08/18 at 09:00 Hydralazine HCl (Apresoline) 50 mg TID PO Last administered on 07/19/18 12:16; Admin Dose 50 MG; Start 07/08/18 at 09:00 Morphine Sulfate (morphine) 6 mg Q4H PRN PO SEVERE PAIN LEVEL 7-10 Last administered on 07/10/18 16:48; Admin Dose 6 MG; Start 07/08/18 at 22:00 Acetylcysteine (Nac) 600 mg BID PO Last administered on 07/19/18 09:09; Admin Dose 600 MG; Start 07/09/18 at 09:00 Amlodipine Besylate (Norvasc) 10 mg DAILY PO Last administered on 07/19/18 09:10; Admin Dose 10 MG; Start 07/09/18 at 09:00 Ticagrelor (Brilinta) 90 mg BID PO Last administered on 07/19/18 09:50; Admin Dose 90 MG; Start 07/10/18 at 09:00 Albuterol/ Ipratropium (Duoneb) 3 ml Q6H RESP THERAPY HHN Last administered on 07/19/18 08:27; Admin Dose 3 ML; Start 07/12/18 at 16:30 Albuterol/ Ipratropium (Duoneb) 3 ml Q6H RESP THERAPY PRN HHN wheezing; Start 07/12/18 at 16:30 Ranolazine (Ranexa) 500 mg Q12 PO Last administered on 07/19/18 09:10; Admin Dose 500 MG; Start 07/12/18 at 21:00 Heparin Sodium (Porcine) (Heparin (1000 Units/ml)) 4,000 unit PER PROTOCOL PRN IV aPTT<47; Start 07/12/18 at 19:00 Heparin Sodium (Porcine) 250 ml @ 10 mls/hr PER PROTOCOL IV Last administered on 07/12/18 20:23; Admin Dose 10 MLS/HR; Start 07/12/18 at 19:30; Status Hold Polyethylene Glycol (Miralax) 17 gm DAILY PRN NGT CONSTIPATION Last administered on 07/14/18 08:02; Admin Dose 17 GM; Start 07/13/18 at 18:00 Senna (Senokot) 1 tab BID PRN PO CONSTIPATION; Start 07/14/18 at 19:30 Sodium Chloride (Deep Sea) 2 spray Q4HWA PRN NASAL congestion Last administered on 07/16/18at 05:19; Admin Dose 2 SPRAY; Start 07/15/18 at 18:00 SAM LERNER Jul 19, 2018 15:55
--- NOTE | 2018-07-19 18:27 | NUR ---
EOSS: PT SITTING UP IN CHAIR WITH FAMILY AT BEDSIDE. DENIES CHEST PAIN OR DISCOMFORT AT THIS TIME. NO S/S OR RESPIRATORY DISTRESS PT ON ROOM AIR. PT CLEAN AND DRY. SEEN BY , WITH PENDING LABS IN AM. FALL AND SAFETY PRECAUTIONS IMPLEMENTED, CALL LIGHT WITHIN REACH ABLE TO MAKE NEEDS KNOWN. BED IN LOWEST POSITION BRAKES LOCKED ROOM FREE OF CLUTTER. PERSONAL BELONGINGS PLACED CLOSE TO PATIENT. WILL ENDORSE TO SEAT NAILER RN ACCORDINGLY
[2018-07-19] MEDS: ATORVASTATIN 80 MG TAB PO SCH (20:22)
[2018-07-19] MEDS: INSULIN GLARGINE [LANTus] (100 UNITS/ML) SYG SC SCH (20:30)
[2018-07-20] VITALS (9 sets, daily range): BP systolic 125–157; BP diastolic 53–75; PULSE 70–83; RESP 16–19
[2018-07-20] MEDS: ACCU-CHEK XX SCH (02:00)
[2018-07-20] MEDS: ALBUTEROL/IPRATROPIUM (NEB) 3 ML AMP HHN SCH ×4 (02:19→20:14)
--- NOTE | 2018-07-20 05:48 | NUR ---
End of Shift Summary No change in pt condition. See pt assessment and EMAR.
[2018-07-20] MEDS: INSULIN ASPART [NOVOLOG] 3 ML PEN SC SCH ×7 (07:52→20:17)
[2018-07-20] MEDS: AMLODIPINE 10 MG TAB PO SCH (07:59)
[2018-07-20] MEDS: ACETYLCYSTEINE 600 MG CAP PO SCH ×2 (07:59→20:11)
[2018-07-20] MEDS: ASPIRIN 81 MG TAB PO SCH (08:00)
[2018-07-20] MEDS: FAMOTIDINE 20 MG TAB PO SCH (08:26)
[2018-07-20] MEDS: RANOLAZINE (SR) 500 MG TAB PO SCH ×2 (08:26→20:10)
[2018-07-20] MEDS: ISOSORBIDE DINITRATE 20 MG TAB PO SCH ×3 (08:27→20:11)
[2018-07-20] MEDS: TICAGRELOR 90 MG TABLET PO SCH ×2 (08:42→20:12)
--- NOTE | 2018-07-20 09:15 | PN ---
Date/Time of Note Date/Time of Note DATE: 07/20/18 TIME: 09:15 Assessment/Plan VTE Prophylaxis Risk score (from Ns)>0 risk: 4 SCD applied (from Ns): No SCD contraindicated: low risk/ambulating Pharmacological prophylaxis: other Lines/Catheters IV Catheter Type (from Nrs): Saline Lock Urinary Cath still in place: No Assessment/Plan Assessment/Plan 1. Acute kidney injury on CKD - Patients Cr is slightly better today but still with poor renal function. - Discussion with Nephrology regarding plan of care and will await Dr. Benedict's recommendations on timing for PCI. Patient is a high risk for further nephropathy and may require HD in the near future if renal function worsens after PCI. Discussed with patient and open to HD if needed - ADITHYA Secondary to contrast-associated nephropathy and given proteinuria has CKD component from diabetic nephropathy - Nephrology consultation appreciated. - will continue monitoring and avoid nephrotoxic agents 2. Non-ST elevated GA s/p PCI- stable - Remains asymptomatic. - Continue on DAPT - Cardiology on board and appreciate recommendations. Will need repeat PCI given stenosis of left circumflex stent prior to discharge - Patient underwent cardiac cath received stent x3 in the RCA 3. Anemia - continues to fluctuate but no active bleeding appreciate. Will continue to monitor given on Brilinta and aspirin 4. Diabetes mellitus - Insulin while in house 5. Hypertension - stable 6. JUAN JOSÉ - will need outpatient pulm follow up for sleep study - refusing CPAP 7. Disposition - Will await recommendations from Dr. Benedict regarding PCI timing. Renal function continues to improve but has been very slow progression - Continue all current treatment Result Diagram: 07/20/18 0456 07/20/18 0456 Results 24hrs Laboratory Tests Test 07/19/18 11:46 07/19/18 16:46 07/19/18 19:59 07/20/18 04:56 Bedside Glucose 119 166 110 White Blood Count 8.4 Red Blood Count 2.81 L Hemoglobin 8.1 L Hematocrit 25.2 L Mean Corpuscular 89.7 Volume Mean Corpuscular 28.8 L Hemoglobin Mean Corpuscular 32.1 Hemoglobin Concent Red Cell 13.2 Distribution Width Platelet Count 335 Mean Platelet Volume 10.1 Immature 1.300 H Granulocytes % Neutrophils % 64.5 Lymphocytes % 21.7 Monocytes % 8.7 Eosinophils % 3.1 Basophils % 0.7 Nucleated Red Blood 0.0 Cells % Immature 0.110 H Granulocytes # Neutrophils # 5.4 Lymphocytes # 1.8 Monocytes # 0.7 Eosinophils # 0.3 Basophils # 0.1 Nucleated Red Blood 0.0 Cells # Sodium Level 137 Potassium Level 4.4 Chloride Level 110 Carbon Dioxide Level 18 L Anion Gap 9 Blood Urea Nitrogen 43 H Creatinine 3.93 H Glucose Level 74 Calcium Level 8.9 Phosphorus Level 5.5 H Magnesium Level 2.0 Albumin 2.9 L Test 07/20/18 07:47 Bedside Glucose 75 Subjective 24 Hr Interval Summary Free Text/Dictation Patient doing well but complaining of no BM for past 3 days. No acute overnight events and denies any chest pain or shortness of breath. Exam/Review of Systems Exam Vitals Vital Signs Date Temp Pulse Resp B/P (MAP) Pulse Ox O2 O2 Flow FiO2 Time Delivery Rate 07/20/18 70 18 96 21 08:30 07/20/18 97.5 146/74 07:25 (98) 07/19/18 Nasal 2.0 07:27 Cannula Intake and Output 07/19/18 07/19/18 07/20/18 1515:00 23:00 07:00 IntakeIntake Total 950 ml 400 ml BalanceBalance 950 ml 400 ml Exam General: no acute distress. answering questions appropriately Head: Normocephalic atraumatic Neck: Supple Respiratory: Clear to auscultation bilaterally. no wheezing or rhonchi Cardiovascular: regular rate and rhythm, no obvious murmurs Gastrointestinal: soft, non-tender to palpation, bowel sounds heard. Neurological: Moves all extremities spontaneously Skin: No new skin lesions Results Results 24hrs Laboratory Tests Test 07/19/18 11:46 07/19/18 16:46 07/19/18 19:59 07/20/18 04:56 Bedside Glucose 119 166 110 White Blood Count 8.4 Red Blood Count 2.81 L Hemoglobin 8.1 L Hematocrit 25.2 L Mean Corpuscular 89.7 Volume Mean Corpuscular 28.8 L Hemoglobin Mean Corpuscular 32.1 Hemoglobin Concent Red Cell 13.2 Distribution Width Platelet Count 335 Mean Platelet Volume 10.1 Immature 1.300 H Granulocytes % Neutrophils % 64.5 Lymphocytes % 21.7 Monocytes % 8.7 Eosinophils % 3.1 Basophils % 0.7 Nucleated Red Blood 0.0 Cells % Immature 0.110 H Granulocytes # Neutrophils # 5.4 Lymphocytes # 1.8 Monocytes # 0.7 Eosinophils # 0.3 Basophils # 0.1 Nucleated Red Blood 0.0 Cells # Sodium Level 137 Potassium Level 4.4 Chloride Level 110 Carbon Dioxide Level 18 L Anion Gap 9 Blood Urea Nitrogen 43 H Creatinine 3.93 H Glucose Level 74 Calcium Level 8.9 Phosphorus Level 5.5 H Magnesium Level 2.0 Albumin 2.9 L Test 07/20/18 07:47 Bedside Glucose 75 Medications Medication Current Medications IV Flush (NS 3 ml) 3 ml PER PROTOCOL IV ; Start 07/06/18 at 13:00 Ondansetron HCl (Zofran Inj) 4 mg Q6H PRN IV NAUSEA/VOMITING Last administered on 07/10/18 16:48; Admin Dose 4 MG; Start 07/06/18 at 13:00 Aspirin (Aspirin) 81 mg DAILY PO Last administered on 07/20/18 08:00; Admin Dose 81 MG; Start 07/07/18 at 09:00 Nitroglycerin (Nitroglycerin (Sl Tab) 0.4 Mg) 1 tab Q5M PRN SL .CHEST PAIN; Start 07/06/18 at 13:00 Acetaminophen (Tylenol Tab) 650 mg Q6H PRN PO .PAIN 1-3 OR TEMP; Start 07/06/18 at 13:00 Acetaminophen/ Hydrocodone Bitart ([place] (5/325)) 1 tab Q6H PRN PO .PAIN 4-6 Last administered on 07/10/18 12:00; Admin Dose 1 TAB; Start 07/06/18 at 13:00 Famotidine (Pepcid) 20 mg DAILY PO Last administered on 07/20/18 08:26; Admin Dose 20 MG; Start 07/06/18 at 14:00 Diagnostic Test (Pha) (Accu-Chek) 1 ea 02 XX Last administered on 07/14/18 02:30; Admin Dose 1 EA; Start 07/07/18 at 02:00 Insulin Glargine (Lantus) 19 units DAILY@2000 SC Last administered on 07/19/18 20:30; Admin Dose 19 UNITS; Start 07/06/18 at 20:00 Insulin Aspart (Novolog Insulin Pen) 5 unit WITH MEALS SC Last administered on 2/11/19at 08:28; Admin Dose 5 UNIT; Start 07/06/18 at 18:00 Insulin Aspart (Novolog Insulin Pen) NOVOLOG *MILD* ALGORITHM WITH MEALS BEDTIME SC Last administered on 07/19/18at 17:10; Admin Dose 1 UNIT; Start 07/06/18 at 18:00 Miscellaneous Information 1 ea NOTE XX ; Start 07/06/18 at 14:30 Glucose (Glutose) 15 gm Q15M PRN PO DECREASED GLUCOSE; Start 07/06/18 at 14:30 Glucose (Glutose) 22.5 gm Q15M PRN PO DECREASED GLUCOSE; Start 07/06/18 at 14:30 Dextrose (D50w Syringe) 25 ml Q15M PRN IV DECREASED GLUCOSE; Start 07/06/18 at 14:30 Dextrose (D50w Syringe) 50 ml Q15M PRN IV DECREASED GLUCOSE; Start 07/06/18 at 14:30 Glucagon (Glucagen) 1 mg Q15M PRN IM DECREASED GLUCOSE; Start 07/06/18 at 14:30 Glucose (Glutose) 15 gm Q15M PRN BUCCAL DECREASED GLUCOSE; Start 07/06/18 at 14:30 Labetalol HCl (Labetalol) 10 mg Q4 PRN IV sbp >160 Last administered on 07/09/18at 04:19; Admin Dose 10 MG; Start 07/06/18 at 15:00 Atorvastatin Calcium (Lipitor) 80 mg HS PO Last administered on 07/19/18at 20:22; Admin Dose 80 MG; Start 07/06/18 at 21:00 Isosorbide Dinitrate (Isordil) 20 mg TID PO Last administered on 07/20/18at 08:27; Admin Dose 20 MG; Start 07/06/18 at 21:00 Carvedilol (Coreg) 3.125 mg BID PO Last administered on 07/20/18at 07:59; Admin Dose 3.125 MG; Start 07/08/18 at 09:00 Hydralazine HCl (Apresoline) 50 mg TID PO Last administered on 07/20/18at 08:26; Admin Dose 50 MG; Start 07/08/18 at 09:00 Morphine Sulfate (morphine) 6 mg Q4H PRN PO SEVERE PAIN LEVEL 7-10 Last adminis tered on 07/10/18at 16:48; Admin Dose 6 MG; Start 07/08/18 at 22:00 Acetylcysteine (Nac) 600 mg BID PO Last administered on 07/20/18 07:59; Admin Dose 600 MG; Start 07/09/18 at 09:00 Amlodipine Besylate (Norvasc) 10 mg DAILY PO Last administered on 07/20/18 07:59; Admin Dose 10 MG; Start 07/09/18 at 09:00 Ticagrelor (Brilinta) 90 mg BID PO Last administered on 07/20/18 08:42; Admin Dose 90 MG; Start 07/10/18 at 09:00 Albuterol/ Ipratropium (Duoneb) 3 ml Q6H RESP THERAPY HHN Last administered on 07/20/18 08:20; Admin Dose 3 ML; Start 07/12/18 at 16:30 Albuterol/ Ipratropium (Duoneb) 3 ml Q6H RESP THERAPY PRN HHN wheezing; Start 07/12/18 at 16:30 Ranolazine (Ranexa) 500 mg Q12 PO Last administered on 07/20/18 08:26; Admin Dose 500 MG; Start 07/12/18 at 21:00 Heparin Sodium (Porcine) (Heparin (1000 Units/ml)) 4,000 unit PER PROTOCOL PRN IV aPTT<47; Start 07/12/18 at 19:00 Heparin Sodium (Porcine) 250 ml @ 10 mls/hr PER PROTOCOL IV Last administered on 07/12/18 20:23; Admin Dose 10 MLS/HR; Start 07/12/18 at 19:30; Status Hold Polyethylene Glycol (Miralax) 17 gm DAILY PRN NGT CONSTIPATION Last administered on 07/14/18 08:02; Admin Dose 17 GM; Start 07/13/18 at 18:00 Senna (Senokot) 1 tab BID PRN PO CONSTIPATION; Start 07/14/18 at 19:30 Sodium Chloride (Deep Sea) 2 spray Q4HWA PRN NASAL congestion Last administered on 07/16/18 05:19; Admin Dose 2 SPRAY; Start 07/15/18 at 18:00 AVELINO WHITE MD Jul 20, 2018 09:15
--- NOTE | 2018-07-20 09:16 | PN ---
DATE: 07/20/2018 SUBJECTIVE: The patient is stable. No events overnight. No fevers, chills, nausea, or vomiting. OBJECTIVE: VITAL SIGNS: Blood pressure is 147/74, respirations 18, pulse 74, temperature 97.5. HEENT: Head is normocephalic. NECK: Supple. HEART: Regular rate. LUNGS: Show diminished breath sounds at the base. ABDOMEN: Soft, nontender to palpation without rebound or guarding. EXTREMITIES: Negative for clubbing, cyanosis, no edema. DERMATOLOGIC: No rashes. MUSCULOSKELETAL: No joint effusion. NEUROLOGIC: No change in exam. MEDICATIONS: Reviewed. LABORATORY DATA: Shows sodium 137, potassium 4.4, BUN 43, creatinine 3.93. White count 8.4, hemoglo bin 8.1, platelet count 335. ASSESSMENT AND PLAN: 1. Nonoliguric acute kidney injury on top of chronic kidney disease stage IV with previous baseline creatinine of around 3.0 mg/dL. Etiology of acute kidney injury is secondary to contrast-associated nephropathy. The patient's renal function appears to be improving as creatinine is now below 4 mg/dL . At this point, continue current treatment plans, supportive care, renally dose all medicines. We will discuss with cardiology about the need for cardiac catheterization. No immediate need for renal replacement therapy. 2. Chronic kidney disease stage IV with nephrotic range proteinuria. Etiology is secondary to diabe tic nephropathy. The patient is currently in acute kidney injury as stated above. We will continue current treatment plan. Continue disease factor modification. 3. Anemia. Continue to monitor hemoglobin and hematocrit. 4. Mineral bone disorder. Monitor calcium and phosphorus levels. 5. Metabolic acidosis secondary to acute kidney injury and chronic kidney disease. Continue to sina tor. 5. Diabetes. Continue current insulin regimen. 6. Coronary artery disease, status post percutaneous coronary intervention to the right coronary art marta. Continue current medical management. Defer intervention at this time. 7. Hypertension. Continue current blood pressure regimen. Defer SAMANTHA inhibitor or ARB at this time. Dictated By: GRAEME MARTINEZ/NTS Conf#: [id number] DID#: [id number] CC: JEANNIE FREITAS MD; SCOT MCKEON MD; AVELINO WHITE MD;*End*
[2018-07-20] MEDS: SENNA/DOCUSATE NA (8.6MG/50MG) TAB PO SCH ×2 (13:08→20:10)
--- NOTE | 2018-07-20 17:07 | CONS ---
Consult Date/Type/Reason Admit Date/Time Jul 06, 2018 at 12:07 Initial Consult Date 07/06/18 Type of Consultation: cv Requesting Provider: SCOT MCKEON Date/Time of Note DATE: 07/20/18 TIME: 17:06 Subjective Interventional cardiology follow-up progress note Subjective: Discussed with the staff TELE was reviewed. d/w physicians including DR Rausch Patient with no chest pain or pressure now Patient with minimal nosebleed last night. No other bleeding is reported. No groin pain. Events noted: Status post PCI of the right coronary artery using 3 drug-eluting stent on July 10, 2018. Objective: General: Obese gentleman no acute distress HEENT: NC/AT. pupils are equal. round. NECK: no stridor. CV: RRR. systolic murmur; no gallop or rubs. PULM: no wheezing . Mild rhonchi . GI: SOFT, NT, ND, no rebound or guarding Extremity: trace B/L LE edema. no clubbing. neuro: awake and alert, OX3. Psych: calm and pleasant rectal: deferred : normal EKG shows normal sinus rhythm. ST-T wave abnormalities suggestive of inferolateral ischemia Echocardiogram was reviewed which showed ejection fraction of 45% Chest x-ray shows: Mild cardiomegaly with pulmonary vascular congestion. Slightly more focal right lower lobe infiltrate. Chest x-ray done 07/12/2018 shows: The aorta is tortuous and atherosclerotic. The cardiomediastinal silhouette is otherwise mildly enlarged and is stable. Mild thickening of the minor fissure is suspected. The remaining lungs and pleural spaces are clear. The soft tissues and osseous structures demonstrate benign age related senescent changes. Objective Vitals Vital Signs Date Temp Pulse Resp B/P (MAP) Pulse Ox O2 O2 Flow FiO2 Time Delivery Rate 07/20/18 70 16:01 07/20/18 97.7 18 144/64 94 15:48 (90) 07/20/18 21 14:10 07/20/18 Nasal 2.0 14:05 Cannula Intake and Output 07/19/18 07/19/18 07/20/18 1414:59 22:59 06:59 IntakeIntake Total 950 ml 400 ml BalanceBalance 950 ml 400 ml Results/Medications Result Diagram: 07/20/18 0456 07/20/18 0456 Results 24 hrs Laboratory Tests Test 07/19/18:59 07/20/18 04:56 07/20/18 07:47 07/20/18 11:35 Bedside Glucose 110 75 73 White Blood Count 8.4 Red Blood Count 2.81 L Hemoglobin 8.1 L Hematocrit 25.2 L Mean Corpuscular 89.7 Volume Mean Corpuscular 28.8 L Hemoglobin Mean Corpuscular 32.1 Hemoglobin Concent Red Cell 13.2 Distribution Width Platelet Count 335 Mean Platelet Volume 10.1 Immature 1.300 H Granulocytes % Neutrophils % 64.5 Lymphocytes % 21.7 Monocytes % 8.7 Eosinophils % 3.1 Basophils % 0.7 Nucleated Red Blood 0.0 Cells % Immature 0.110 H Granulocytes # Neutrophils # 5.4 Lymphocytes # 1.8 Monocytes # 0.7 Eosinophils # 0.3 Basophils # 0.1 Nucleated Red Blood 0.0 Cells # Sodium Level 137 Potassium Level 4.4 Chloride Level 110 Carbon Dioxide Level 18 L Anion Gap 9 Blood Urea Nitrogen 43 H Creatinine 3.93 H Glucose Level 74 Calcium Level 8.9 Phosphorus Level 5.5 H Magnesium Level 2.0 Albumin 2.9 L Home Meds Active Scripts Carvedilol* (Carvedilol*) 6.25 Mg Tablet, 6.25 MG PO BID for 60 Days, #120 TAB Prov:BHARATH KING MD 04/13/17 Reported Medications Insulin Glargine* (Lantus*) 100 Unit/Ml Soln, 30 UNIT SC DAILY, #1 VIAL 04/05/17 Aspirin (Low Dose Aspirin) 81 Mg Tablet.dr, 81 MG PO DAILY, #30 TAB 04/05/17 Atorvastatin Calcium* (Atorvastatin Calcium*) 20 Mg Tablet, 20 MG PO QHS, #30 TAB 04/05/17 Amlodipine Besylate* (Amlodipine Besylate*) 10 Mg Tablet, 10 MG PO DAILY, #30 TAB 04/05/17 Medications Current Medications IV Flush (NS 3 ml) 3 ml PER PROTOCOL IV ; Start 07/06/18 at 13:00 Ondansetron HCl (Zofran Inj) 4 mg Q6H PRN IV NAUSEA/VOMITING Last administered on 07/10/18at 16:48; Admin Dose 4 MG; Start 07/06/18 at 13:00 Aspirin (Aspirin) 81 mg DAILY PO Last administered on 07/20/18at 08:00; Admin Dose 81 MG; Start 07/07/18 at 09:00 Nitroglycerin (Nitroglycerin (Sl Tab) 0.4 Mg) 1 tab Q5M PRN SL .CHEST PAIN; Start 07/06/18 at 13:00 Acetaminophen (Tylenol Tab) 650 mg Q6H PRN PO .PAIN 1-3 OR TEMP; Start 07/06/18 at 13:00 Acetaminophen/ Hydrocodone Bitart ([place] (5/325)) 1 tab Q6H PRN PO .PAIN 4-6 Last administered on 07/10/18at 12:00; Admin Dose 1 TAB; Start 07/06/18 at 13:00 Famotidine (Pepcid) 20 mg DAILY PO Last administered on 07/20/18at 08:26; Admin Dose 20 MG; Start 07/06/18 at 14:00 Insulin Glargine (Lantus) 19 units DAILY@2000 SC Last administered on 07/19/18at 20:30; Admin Dose 19 UNITS; Start 07/06/18 at 20:00 Insulin Aspart (Novolog Insulin Pen) 5 unit WITH MEALS SC Last administered on 07/20/18at 12:20; Admin Dose 5 UNIT; Start 07/06/18 at 18:00 Insulin Aspart (Novolog Insulin Pen) NOVOLOG *MILD* ALGORITHM WITH MEALS BEDTIME SC Last administered on 07/19/18at 17:10; Admin Dose 1 UNIT; Start 07/06/18 at 18:00 Miscellaneous Information 1 ea NOTE XX ; Start 07/06/18 at 14:30 Glucose (Glutose) 15 gm Q15M PRN PO DECREASED GLUCOSE; Start 07/06/18 at 14:30 Glucose (Glutose) 22.5 gm Q15M PRN PO DECREASED GLUCOSE; Start 07/06/18 at 14:30 Dextrose (D50w Syringe) 25 ml Q15M PRN IV DECREASED GLUCOSE; Start 07/06/18 at 14:30 Dextrose (D50w Syringe) 50 ml Q15M PRN IV DECREASED GLUCOSE; Start 07/06/18 at 14:30 Glucagon (Glucagen) 1 mg Q15M PRN IM DECREASED GLUCOSE; Start 07/06/18 at 14:30 Glucose (Glutose) 15 gm Q15M PRN BUCCAL DECREASED GLUCOSE; Start 07/06/18 at 14:30 Labetalol HCl (Labetalol) 10 mg Q4 PRN IV sbp >160 Last administered on 07/09/18 04:19; Admin Dose 10 MG; Start 07/06/18 at 15:00 Atorvastatin Calcium (Lipitor) 80 mg HS PO Last administered on 07/19/18 20:22; Admin Dose 80 MG; Start 07/06/18 at 21:00 Isosorbide Dinitrate (Isordil) 20 mg TID PO Last administered on 07/20/18 13:08; Admin Dose 20 MG; Start 07/06/18 at 21:00 Carvedilol (Coreg) 3.125 mg BID PO Last administered on 07/20/18 07:59; Admin Dose 3.125 MG; Start 07/08/18 at 09:00 Hydralazine HCl (Apresoline) 50 mg TID PO Last administered on 07/20/18 13:07; Admin Dose 50 MG; Start 07/08/18 at 09:00 Morphine Sulfate (morphine) 6 mg Q4H PRN PO SEVERE PAIN LEVEL 7-10 Last administered on 07/10/18 16:48; Admin Dose 6 MG; Start 07/08/18 at 22:00 Acetylcysteine (Nac) 600 mg BID PO Last administered on 07/20/18 07:59; Admin Dose 600 MG; Start 07/09/18 at 09:00 Amlodipine Besylate (Norvasc) 10 mg DAILY PO Last administered on 07/20/18 07:59; Admin Dose 10 MG; Start 07/09/18 at 09:00 Ticagrelor (Brilinta) 90 mg BID PO Last administered on 07/20/18 08:42; Admin Dose 90 MG; Start 07/10/18 at 09:00 Albuterol/ Ipratropium (Duoneb) 3 ml Q6H RESP THERAPY HHN Last administered on 07/20/18 14:10; Admin Dose 3 ML; Start 07/12/18 at 16:30 Albuterol/ Ipratropium (Duoneb) 3 ml Q6H RESP THERAPY PRN HHN wheezing; Start 07/12/18 at 16:30 Ranolazine (Ranexa) 500 mg Q12 PO Last administered on 07/20/18 08:26; Admin Dose 500 MG; Start 07/12/18 at 21:00 Heparin Sodium (Porcine) (Heparin (1000 Units/ml)) 4,000 unit PER PROTOCOL PRN IV aPTT<47; Start 07/12/18 at 19:00 Heparin Sodium (Porcine) 250 ml @ 10 mls/hr PER PROTOCOL IV Last administered on 07/12/18at 20:23; Admin Dose 10 MLS/HR; Start 07/12/18 at 19:30; Status Hold Sodium Chloride (Deep Sea) 2 spray Q4HWA PRN NASAL congestion Last administered on 07/16/18at 05:19; Admin Dose 2 SPRAY; Start 07/15/18 at 18:00 Senna/Docusate Sodium (Senokot-S) 1 tab BID PO Last administered on 07/20/18at 13:08; Admin Dose 1 TAB; Start 07/20/18 at 11:00 Assessment/Plan Hospital Course (Demo Recall) 1. Non-ST elevation myocardial infarction 2. Coronary artery disease with history of previous MIs 3. History of PCI 4. Hypertension 5. Diabetes 6. Congestive heart failure class IV on arrival 7. Dyslipidemia 8. Active smoker and possibly COPD 9. Renal failure acute on chronic: ATN 10. Episode of 2-1 AV block so far asymptomatic Recommendations: Aspirin and Brilinta will be continued Low-dose carvedilol to 3.125 p.o. twice daily and continue hydralazine to his regimen. Nitroglycerin to be continued as well Continue with statins cont Ranexa Off of any SAMANTHA inhibitor or ARB due to his renal insufficiency Follow-up renal function. Patient also has significant stenosis of his left circumflex artery stent. We will plan for possibly perform PCI of this lesion once his renal function improves. Hopefully within the next few days and by am , patient renal function is stabilized to the point that he can have the PCI done Thank you for his referral. We will continue to follow along with you, until patient is discharged and to follow-up with his regular vice president of news Dr.Fakheri JEANNIE FREITAS MD [facility] JEANNIE FREITAS MD Jul 20, 2018 17:07
[2018-07-20] MEDS: ATORVASTATIN 80 MG TAB PO SCH (20:10)
[2018-07-20] MEDS: INSULIN GLARGINE [LANTus] (100 UNITS/ML) SYG SC SCH (20:17)
[2018-07-21] VITALS (11 sets, daily range): BP systolic 107–160; BP diastolic 53–75; PULSE 67–87; RESP 18
[2018-07-21] MEDS: ALBUTEROL/IPRATROPIUM (NEB) 3 ML AMP HHN SCH ×4 (02:00→21:08)
--- NOTE | 2018-07-21 07:00 | NUR ---
NURSE'S NOTES: Pt resting comfortably with stable VS; ambulatory with steady gait. Denied any discomfort. No s/sx of hypo/hyperglycemia. at bedside. Kept clean and comfortable. Call light in reach. All needs anticipated and attended promptly.
[2018-07-21] MEDS: INSULIN ASPART [NOVOLOG] 3 ML PEN SC SCH ×7 (08:00→20:36)
--- NOTE | 2018-07-21 08:07 | PN ---
DATE: 07/21/2018 SUBJECTIVE: The patient is stable, no events overnight. No fevers, chills, nausea, or vomiting. OBJECTIVE: VITAL SIGNS: Blood pressure is 152/75, respirations 18, pulse 67, temperature 98.0. HEENT: Head is normocephalic. NECK: Supple. HEART: Regular rate. LUNGS: Show diminished breath sounds at the base. ABDOMEN: Soft, nontender to palpation without rebound or guarding. EXTREMITIES: Negative for clubbing, cyanosis, no edema. DERMATOLOGIC: No rashes. MUSCULOSKELETAL: No joint effusion. NEUROLOGIC: No change in exam. MEDICATIONS: Reviewed. LABORATORY DATA: Sodium 137, potassium 4.2, chloride 108, bicarbonate 18, BUN 40, creatinine 3.85, c alcium 5.3. White count 9.0, hemoglobin 8.7, platelet count is 354. ASSESSMENT AND PLAN: 1. Nonoliguric acute kidney injury on top of chronic kidney disease stage IV with previous baseline creatinine of 3.0 mg/dL. Etiology of acute kidney injury is secondary to contrast-associated nephrop athy. The patient's renal function continues to improve. At this point, we would continue current t reatment plan. The case was discussed with cardiology, pending possible cardiac catheterization on . 2. Chronic kidney disease stage IV with nephrotic range proteinuria. Etiology is secondary to diabe tic nephropathy. The patient is currently in acute kidney injury as stated above. Continue current treatment plan. Continue disease factor modification. 3. Anemia. Continue to monitor hemoglobin and hematocrit levels. 4. Mineral bone disorder, monitor calcium and phosphorus levels. 5. Metabolic acidosis secondary to acute kidney injury and chronic kidney disease. Continue to [facility]. 6. Diabetes. Continue current insulin regimen. 7. Coronary artery disease, status post percutaneous coronary intervention to the right coronary art marta. Continue medical management. 8. Hypertension. Continue current blood pressure regimen. Defer any SAMANTHA inhibitor or ARB at this t jamison. Dictated By: GRAEME BRANDT DO NR/NTS Conf#: [id number] DID#: [id number] CC: JEANNIE FREITAS MD; SCOT MCKEON MD; AVELINO WHITE MD;*EndCC*
[2018-07-21] MEDS: ACETYLCYSTEINE 600 MG CAP PO SCH ×2 (10:38→20:28)
[2018-07-21] MEDS: SENNA/DOCUSATE NA (8.6MG/50MG) TAB PO SCH ×2 (10:39→20:28)
[2018-07-21] MEDS: ISOSORBIDE DINITRATE 20 MG TAB PO SCH ×3 (10:39→20:29)
[2018-07-21] MEDS: ASPIRIN 81 MG TAB PO SCH (10:39)
[2018-07-21] MEDS: RANOLAZINE (SR) 500 MG TAB PO SCH ×2 (10:41→20:28)
[2018-07-21] MEDS: FAMOTIDINE 20 MG TAB PO SCH (10:41)
[2018-07-21] MEDS: AMLODIPINE 10 MG TAB PO SCH (10:41)
[2018-07-21] MEDS: TICAGRELOR 90 MG TABLET PO SCH ×2 (10:50→20:35)
--- NOTE | 2018-07-21 11:58 | PN ---
Date/Time of Note Date/Time of Note DATE: 07/21/18 TIME: 11:57 Assessment/Plan VTE Prophylaxis Risk score (from Ns)>0 risk: 3 SCD applied (from Ns): No SCD contraindicated: low risk/ambulating Pharmacological prophylaxis: heparin Lines/Catheters IV [facility] [place] Urinary Cath still in place: No Assessment/Plan Hospital Course 1. Acute kidney injury on CKD - Patients Cr is slightly better today but still with poor renal function. - Discussion with Nephrology regarding plan of care and will await Dr. Benedict's recommendations on timing for PCI. Patient is a high risk for further nephropathy and may require HD in the near future if renal function worsens after PCI. Discussed with patient and open to HD if needed - ADITHYA Secondary to contrast-associated nephropathy and given proteinuria has CKD component from diabetic nephropathy - Nephrology consultation appreciated. - will continue monitoring and avoid nephrotoxic agents 2. Non-ST elevated [place] s/p PCI- stable - Remains asymptomatic. - Continue on DAPT - Cardiology on board and appreciate recommendations. Will need repeat PCI given stenosis of left circumflex stent prior to discharge - Patient underwent cardiac cath received stent x3 in the RCA 3. Anemia - continues to fluctuate but no active bleeding appreciate. Will continue to monitor given on Brilinta and aspirin 4. Diabetes mellitus - Insulin while in house 5. Hypertension - stable 6. JUAN JOSÉ - will need outpatient pulm follow up for sleep study - refusing CPAP 7. Disposition - Will await recommendations from Dr. Benedict regarding PCI timing. Renal function continues to improve but has been very slow progression - Continue all current treatment Result Diagram: 07/21/1851307/21/18513 Results 24hrs Laboratory Tests Test 07/20/18 17:39 07/20/18 20:10 07/21/18 05:14 07/21/18 07:45 Bedside Glucose 109 143 72 White Blood Count 9.0 Red Blood Count 3.02 L Hemoglobin 8.7 L Hematocrit 27.0 L Mean Corpuscular 89.4 Volume Mean Corpuscular 28.8 L Hemoglobin Mean Corpuscular 32.2 Hemoglobin Concent Red Cell 13.2 Distribution Width Platelet Count 354 Mean Platelet Volume 9.8 Immature 0.900 H Granulocytes % Neutrophils % 67.4 Lymphocytes % 19.6 Monocytes % 8.6 Eosinophils % 2.7 Basophils % 0.8 Nucleated Red Blood 0.0 Cells % Immature 0.080 H Granulocytes # Neutrophils # 6.1 Lymphocytes # 1.8 Monocytes # 0.8 Eosinophils # 0.2 Basophils # 0.1 Nucleated Red Blood 0.0 Cells # Sodium Level 137 Potassium Level 4.2 Chloride Level 108 Carbon Dioxide Level 18 L Anion Gap 11 Blood Urea Nitrogen 40 H Creatinine 3.85 H Glucose Level 72 Calcium Level 9.1 Phosphorus Level 5.3 H Magnesium Level 2.0 Albumin 3.3 Subjective 24 Hr Interval Summary Free Text/Dictation No change to clinical status Awaiting repeat [facility], per report will be on Exam/Review of Systems Exam Vitals Vital Signs Date Temp Pulse Resp B/P (MAP) Pulse Ox O2 O2 Flow FiO2 Time Delivery Rate 07/21/18 98.6 75 18 160/75 98 11:23 (103) 07/21/18 Nasal 2.0 08:05 Cannula 07/20/18 21 20:15 Intake and Output 07/20/18 07/20/18 07/21/18 1414:59 22:59 06:59 IntakeIntake Total 750 ml 500 ml BalanceBalance 750 ml 500 ml Constitutional: alert, oriented, well developed Psych: no complaints, nl mood/affect Head: normocephalic, atraumatic Eyes: nl conjunctiva, EOMI, nl lids, nl sclera, PERRL ENMT: nl external ears & nose, nl lips & teeth, nl nasal mucosa & septum Neck: supple, non-tender Respiratory: clear to auscultation, normal air movement Cardiovascular: regular rate and rhythm, nl pulses Gastrointestinal: soft, nl liver, spleen, non-tender Musculoskeletal: nl extremities to inspection, nl gait and stance Extremities: normal pulses Neurological: SALESPERSON FURS II-XII intact, nl mental status, nl speech, nl strength Skin: nl turgor; No rash or lesions Lymph: nl lymph nodes Results Results 24hrs Laboratory Tests Test 07/20/18 17:39 07/20/18 20:10 07/21/18 05:14 07/21/18 07:45 Bedside Glucose 109 143 72 White Blood Count 9.0 Red Blood Count 3.02 L Hemoglobin 8.7 L Hematocrit 27.0 L Mean Corpuscular 89.4 Volume Mean Corpuscular 28.8 L Hemoglobin Mean Corpuscular 32.2 Hemoglobin Concent Red Cell 13.2 Distribution Width Platelet Count 354 Mean Platelet Volume 9.8 Immature 0.900 H Granulocytes % Neutrophils % 67.4 Lymphocytes % 19.6 Monocytes % 8.6 Eosinophils % 2.7 Basophils % 0.8 Nucleated Red Blood 0.0 Cells % Immature 0.080 H Granulocytes # Neutrophils # 6.1 Lymphocytes # 1.8 Monocytes # 0.8 Eosinophils # 0.2 Basophils # 0.1 Nucleated Red Blood 0.0 Cells # Sodium Level 137 Potassium Level 4.2 Chloride Level 108 Carbon Dioxide Level 18 L Anion Gap 11 Blood Urea Nitrogen 40 H Creatinine 3.85 H Glucose Level 72 Calcium Level 9.1 Phosphorus Level 5.3 H Magnesium Level 2.0 Albumin 3.3 Medications Medication Current Medications IV Flush (NS 3 ml) 3 ml PER PROTOCOL IV ; Start 07/06/18 at 13:00 Ondansetron HCl (Zofran Inj) 4 mg Q6H PRN IV NAUSEA/VOMITING Last administered on 07/10/18 16:48; Admin Dose 4 MG; Start 07/06/18 at 13:00 Aspirin (Aspirin) 81 mg DAILY PO Last administered on 07/21/18at 10:39; Admin Dose 81 MG; Start 07/07/18 at 09:00 Nitroglycerin (Nitroglycerin (Sl Tab) 0.4 Mg) 1 tab Q5M PRN SL .CHEST PAIN; Start 07/06/18 at 13:00 Acetaminophen (Tylenol Tab) 650 mg Q6H PRN PO .PAIN 1-3 OR TEMP; Start 07/06/18 at 13:00 Acetaminophen/ Hydrocodone Bitart ([place] (5/325)) 1 tab Q6H PRN PO .PAIN 4-6 Last administered on 07/10/18at 12:00; Admin Dose 1 TAB; Start 07/06/18 at 13:00 Famotidine (Pepcid) 20 mg DAILY PO Last administered on 07/21/18 10:41; Admin Dose 20 MG; Start 07/06/18 at 14:00 Insulin Glargine (Lantus) 19 units DAILY@2000 SC Last administered on 07/20/18 20:17; Admin Dose 19 UNITS; Start 07/06/18 at 20:00 Insulin Aspart (Novolog Insulin Pen) 5 unit WITH MEALS SC Last administered on 2/12/19at 08:02; Admin Dose 5 UNIT; Start 07/06/18 at 18:00 Insulin Aspart (Novolog Insulin Pen) NOVOLOG *MILD* ALGORITHM WITH MEALS BEDTIME SC Last administered on 07/19/18at 17:10; Admin Dose 1 UNIT; Start 07/06/18 at 18:00 Miscellaneous Information 1 ea NOTE XX ; Start 07/06/18 at 14:30 Glucose (Glutose) 15 gm Q15M PRN PO DECREASED GLUCOSE; Start 07/06/18 at 14:30 Glucose (Glutose) 22.5 gm Q15M PRN PO DECREASED GLUCOSE; Start 07/06/18 at 14:30 Dextrose (D50w Syringe) 25 ml Q15M PRN IV DECREASED GLUCOSE; Start 07/06/18 at 14:30 Dextrose (D50w Syringe) 50 ml Q15M PRN IV DECREASED GLUCOSE; Start 07/06/18 at 14:30 Glucagon (Glucagen) 1 mg Q15M PRN IM DECREASED GLUCOSE; Start 07/06/18 at 14:30 Glucose (Glutose) 15 gm Q15M PRN BUCCAL DECREASED GLUCOSE; Start 07/06/18 at 14:30 Labetalol HCl (Labetalol) 10 mg Q4 PRN IV sbp >160 Last administered on 07/09/18at 04:19; Admin Dose 10 MG; Start 07/06/18 at 15:00 Atorvastatin Calcium (Lipitor) 80 mg HS PO Last administered on 07/20/18at 20:10; Admin Dose 80 MG; Start 07/06/18 at 21:00 Isosorbide Dinitrate (Isordil) 20 mg TID PO Last administered on 07/21/18at 10:39; Admin Dose 20 MG; Start 07/06/18 at 21:00 Carvedilol (Coreg) 3.125 mg BID PO Last administered on 07/21/18at 10:41; Admin Dose 3.125 MG; Start 07/08/18 at 09:00 Hydralazine HCl (Apresoline) 50 mg TID PO Last administered on 07/21/18at 10:39; Admin Dose 50 MG; Start 07/08/18 at 09:00 Morphine Sulfate (morphine) 6 mg Q4H PRN PO SEVERE PAIN LEVEL 7-10 Last administered on 07/10/18at 16:48; Admin Dose 6 MG; Start 07/08/18 at 22:00 Acetylcysteine (Nac) 600 mg BID PO Last administered on 07/21/18 10:38; Admin Dose 600 MG; Start 07/09/18 at 09:00 Amlodipine Besylate (Norvasc) 10 mg DAILY PO Last administered on 07/21/18 10:41; Admin Dose 10 MG; Start 07/09/18 at 09:00 Ticagrelor (Brilinta) 90 mg BID PO Last administered on 07/21/18 10:50; Admin Dose 90 MG; Start 07/10/18 at 09:00 Albuterol/ Ipratropium (Duoneb) 3 ml Q6H RESP THERAPY HHN Last administered on 07/20/18 20:14; Admin Dose 3 ML; Start 07/12/18 at 16:30 Albuterol/ Ipratropium (Duoneb) 3 ml Q6H RESP THERAPY PRN HHN wheezing; Start 07/12/18 at 16:30 Ranolazine (Ranexa) 500 mg Q12 PO Last administered on 07/21/18 10:41; Admin Dose 500 MG; Start 07/12/18 at 21:00 Heparin Sodium (Porcine) (Heparin (1000 Units/ml)) 4,000 unit PER PROTOCOL PRN IV aPTT<47; Start 07/12/18 at 19:00 Heparin Sodium (Porcine) 250 ml @ 10 mls/hr PER PROTOCOL IV Last administered on 07/12/18 20:23; Admin Dose 10 MLS/HR; Start 07/12/18 at 19:30; Status Hold Sodium Chloride (Deep Sea) 2 spray Q4HWA PRN NASAL congestion Last administered on 07/16/18 05:19; Admin Dose 2 SPRAY; Start 07/15/18 at 18:00 Senna/Docusate Sodium (Senokot-S) 1 tab BID PO Last administered on 07/21/18 10:39; Admin Dose 1 TAB; Start 07/20/18 at 11:00 BHARATH KING MD Jul 21, 2018 11:58
--- NOTE | 2018-07-21 13:39 | NUR ---
SW: LOS/ INITIAL PSYCHOSOCIAL ASSESSMENT SW met with this 62-year-old Kinyarwanda/ Greenlandic speaking male at bedside for LOS/ initial psychosocial assessment. Patient states he lives with his and daughter at [address], [place] [address]. States he is disabled and is receiving disability benefits. States he is and has 3 adult children and 1 minor child age 13, who is being cared for by patient's . Patient denies having an AHCD, and he verbally designated his Luisa Caldwell ([phone]) as his surrogate medical spokesperson. Patient states his is his primary caregiver and primary mode of transportation at home. SW provided resources for IHSS. Patient denies any other questions/ concerns at this time. SW remains available as needed throughout patient's treatment process.
--- NOTE | 2018-07-21 16:11 | CONS ---
Consult Date/Type/Reason Admit Date/Time Jul 06, 2018 at 12:07 Initial Consult Date 07/06/18 Type of Consultation: cv Requesting Provider: SCOT MCKEON Date/Time of Note DATE: 07/21/18 TIME: 16:11 Subjective Interventional cardiology follow-up progress note Subjective: Discussed with the staff tele was reviewed. d/w physicians Patient with no chest pain or pressure now Patient with minimal nosebleed last night. No other bleeding is reported. No groin pain. Events noted: Status post PCI of the right coronary artery using 3 drug-eluting stent on July 10, 2018. Objective: General: Obese gentleman no acute distress HEENT: NC/AT. pupils are equal. round. NECK: no stridor. CV: RRR. systolic murmur; no gallop or rubs. PULM: no wheezing . Mild rhonchi . GI: SOFT, NT, ND, no rebound or guarding Extremity: trace B/L LE edema. no clubbing. neuro: awake and alert, OX3. Psych: calm and pleasant rectal: deferred : normal EKG shows normal sinus rhythm. ST-T wave abnormalities suggestive of inferolateral ischemia Echocardiogram was reviewed which showed ejection fraction of 45% Chest x-ray shows: Mild cardiomegaly with pulmonary vascular congestion. Slightly more focal right lower lobe infiltrate. Chest x-ray done 07/12/2018 shows: The aorta is tortuous and atherosclerotic. The cardiomediastinal silhouette is otherwise mildly enlarged and is stable. Mild thickening of the minor fissure is suspected. The remaining lungs and pleural spaces are clear. The soft tissues and osseous structures demonstrate benign age related senescent changes. Objective Vitals Vital Signs Date Temp Pulse Resp B/P (MAP) Pulse Ox O2 O2 Flow FiO2 Time Delivery Rate 07/21/18 98.0 72 18 140/67 98 15:30 (91) 07/21/18 Nasal 2.0 14:03 Cannula 07/21/18 21 13:44 Intake and Output 07/20/18 07/20/18 07/21/18 1414:59 22:59 06:59 IntakeIntake Total 750 ml 500 ml BalanceBalance 750 ml 500 ml Results/Medications Result Diagram: 07/21/18 0514 07/21/18 0514 Results 24 hrs Laboratory Tests Test 07/20/18 17:39 07/20/18 20:10 07/21/18 05:14 07/21/18 07:45 Bedside Glucose 109 143 72 White Blood Count 9.0 Red Blood Count 3.02 L Hemoglobin 8.7 L Hematocrit 27.0 L Mean Corpuscular 89.4 Volume Mean Corpuscular 28.8 L Hemoglobin Mean Corpuscular 32.2 Hemoglobin Concent Red Cell 13.2 Distribution Width Platelet Count 354 Mean Platelet Volume 9.8 Immature 0.900 H Granulocytes % Neutrophils % 67.4 Lymphocytes % 19.6 Monocytes % 8.6 Eosinophils % 2.7 Basophils % 0.8 Nucleated Red Blood 0.0 Cells % Immature 0.080 H Granulocytes # Neutrophils # 6.1 Lymphocytes # 1.8 Monocytes # 0.8 Eosinophils # 0.2 Basophils # 0.1 Nucleated Red Blood 0.0 Cells # Sodium Level 137 Potassium Level 4.2 Chloride Level 108 Carbon Dioxide Level 18 L Anion Gap 11 Blood Urea Nitrogen 40 H Creatinine 3.85 H Glucose Level 72 Calcium Level 9.1 Phosphorus Level 5.3 H Magnesium Level 2.0 Albumin 3.3 Test 07/21/18 12:08 Bedside Glucose 145 Home Meds Active Scripts Carvedilol* (Carvedilol*) 6.25 Mg Tablet, 6.25 MG PO BID for 60 Days, #120 TAB Prov:BHARATH KING MD 04/13/17 Reported Medications Insulin Glargine* (Lantus*) 100 Unit/Ml Soln, 30 UNIT SC DAILY, #1 VIAL 04/05/17 Aspirin (Low Dose Aspirin) 81 Mg Tablet.dr, 81 MG PO DAILY, #30 TAB 04/05/17 Atorvastatin Calcium* (Atorvastatin Calcium*) 20 Mg Tablet, 20 MG PO QHS, #30 TAB 04/05/17 Amlodipine Besylate* (Amlodipine Besylate*) 10 Mg Tablet, 10 MG PO DAILY, #30 TAB 04/05/17 Medications Current Medications IV Flush (NS 3 ml) 3 ml PER PROTOCOL IV ; Start 07/06/18 at 13:00 Ondansetron HCl (Zofran Inj) 4 mg Q6H PRN IV NAUSEA/VOMITING Last administered on 07/10/18at 16:48; Admin Dose 4 MG; Start 07/06/18 at 13:00 Aspirin (Aspirin) 81 mg DAILY PO Last administered on 07/21/18at 10:39; Admin Dose 81 MG; Start 07/07/18 at 09:00 Nitroglycerin (Nitroglycerin (Sl Tab) 0.4 Mg) 1 tab Q5M PRN SL .CHEST PAIN; Start 07/06/18 at 13:00 Acetaminophen (Tylenol Tab) 650 mg Q6H PRN PO .PAIN 1-3 OR TEMP; Start 07/06/18 at 13:00 Acetaminophen/ Hydrocodone Bitart ([place] (5/325)) 1 tab Q6H PRN PO .PAIN 4-6 Last administered on 07/10/18at 12:00; Admin Dose 1 TAB; Start 07/06/18 at 13:00 Famotidine (Pepcid) 20 mg DAILY PO Last administered on 07/21/18at 10:41; Admin Dose 20 MG; Start 07/06/18 at 14:00 Insulin Glargine (Lantus) 19 units DAILY@2000 SC Last administered on 07/20/18at 20:17; Admin Dose 19 UNITS; Start 07/06/18 at 20:00 Insulin Aspart (Novolog Insulin Pen) 5 unit WITH MEALS SC Last administered on 07/21/18at 12:14; Admin Dose 5 UNIT; Start 07/06/18 at 18:00 Insulin Aspart (Novolog Insulin Pen) NOVOLOG *MILD* ALGORITHM WITH MEALS BEDTIME SC Last administered on 07/21/18at 12:14; Admin Dose 1 UNIT; Start at 18:00 Miscellaneous Information 1 ea NOTE XX ; Start 07/06/18 at 14:30 Glucose (Glutose) 15 gm Q15M PRN PO DECREASED GLUCOSE; Start 07/06/18 at 14:30 Glucose (Glutose) 22.5 gm Q15M PRN PO DECREASED GLUCOSE; Start 07/06/18 at 14:30 Dextrose (D50w Syringe) 25 ml Q15M PRN IV DECREASED GLUCOSE; Start 07/06/18 at 14:30 Dextrose (D50w Syringe) 50 ml Q15M PRN IV DECREASED GLUCOSE; Start 07/06/18 at 14:30 Glucagon (Glucagen) 1 mg Q15M PRN IM DECREASED GLUCOSE; Start 07/06/18 at 14:30 Glucose (Glutose) 15 gm Q15M PRN BUCCAL DECREASED GLUCOSE; Start 07/06/18 at 14:30 Labetalol HCl (Labetalol) 10 mg Q4 PRN IV sbp >160 Last administered on 07/09/18 04:19; Admin Dose 10 MG; Start 07/06/18 at 15:00 Atorvastatin Calcium (Lipitor) 80 mg HS PO Last administered on 07/20/18 20:10; Admin Dose 80 MG; Start 07/06/18 at 21:00 Isosorbide Dinitrate (Isordil) 20 mg TID PO Last administered on 07/21/18 13:58; Admin Dose 20 MG; Start 07/06/18 at 21:00 Carvedilol (Coreg) 3.125 mg BID PO Last administered on 07/21/18 10:41; Admin Dose 3.125 MG; Start 07/08/18 at 09:00 Hydralazine HCl (Apresoline) 50 mg TID PO Last administered on 07/21/18 13:58; Admin Dose 50 MG; Start 07/08/18 at 09:00 Morphine Sulfate (morphine) 6 mg Q4H PRN PO SEVERE PAIN LEVEL 7-10 Last administered on 07/10/18 16:48; Admin Dose 6 MG; Start 07/08/18 at 22:00 Acetylcysteine (Nac) 600 mg BID PO Last administered on 07/21/18 10:38; Admin Dose 600 MG; Start 07/09/18 at 09:00 Amlodipine Besylate (Norvasc) 10 mg DAILY PO Last administered on 07/21/18 10:41; Admin Dose 10 MG; Start 07/09/18 at 09:00 Ticagrelor (Brilinta) 90 mg BID PO Last administered on 07/21/18 10:50; Admin Dose 90 MG; Start 07/10/18 at 09:00 Albuterol/ Ipratropium (Duoneb) 3 ml Q6H RESP THERAPY HHN Last administered on 07/21/18 13:43; Admin Dose 3 ML; Start 07/12/18 at 16:30 Albuterol/ Ipratropium (Duoneb) 3 ml Q6H RESP THERAPY PRN HHN wheezing; Start 07/12/18 at 16:30 Ranolazine (Ranexa) 500 mg Q12 PO Last administered on 07/21/18 10:41; Admin Dose 500 MG; Start 07/12/18 at 21:00 Heparin Sodium (Porcine) (Heparin (1000 Units/ml)) 4,000 unit PER PROTOCOL PRN IV aPTT<47; Start 07/12/18 at 19:00 Heparin Sodium (Porcine) 250 ml @ 10 mls/hr PER PROTOCOL IV Last administered on 07/12/18at 20:23; Admin Dose 10 MLS/HR; Start 07/12/18 at 19:30; Status Hold Sodium Chloride (Deep Sea) 2 spray Q4HWA PRN NASAL congestion Last administered on 07/16/18 05:19; Admin Dose 2 SPRAY; Start 07/15/18 at 18:00 Senna/Docusate Sodium (Senokot-S) 1 tab BID PO Last administered on 07/21/18at 10:39; Admin Dose 1 TAB; Start 07/20/18 at 11:00 Assessment/Plan Hospital Course (Demo Recall) 1. Non-ST elevation myocardial infarction 2. Coronary artery disease with history of previous MIs 3. History of PCI 4. Hypertension 5. Diabetes 6. Congestive heart failure class IV on arrival 7. Dyslipidemia 8. Active smoker and possibly COPD 9. Renal failure acute on chronic: ATN 10. Episode of 2-1 AV block so far asymptomatic Recommendations: Aspirin and Brilinta will be continued Low-dose carvedilol to 3.125 p.o. twice daily and continue hydralazine to his regimen. Nitroglycerin to be continued as well Continue with statins cont Ranexa Off of any SAMANTHA inhibitor or ARB due to his renal insufficiency Follow-up renal function. Patient also has significant stenosis of his left circumflex artery stent. We will plan for possibly perform PCI of this lesion once his renal function improves. Hopefully within the next few days and by am , patient renal function is stabilized to the point that he can have the PCI done Thank you for his referral. 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
[2018-07-21] MEDS: ATORVASTATIN 80 MG TAB PO SCH (20:28)
[2018-07-21] MEDS: INSULIN GLARGINE [LANTus] (100 UNITS/ML) SYG SC SCH (20:35)
[2018-07-22] VITALS (10 sets, daily range): BP systolic 122–140; BP diastolic 57–71; PULSE 64–80; RESP 18–19
[2018-07-22] MEDS: ALBUTEROL/IPRATROPIUM (NEB) 3 ML AMP HHN SCH ×4 (01:49→20:03)
--- NOTE | 2018-07-22 07:16 | NUR ---
602 END OF SHIFT RN NOTE PATIENT ALERT AND ORIENTED X 4, DENIED PAIN, MEDS GIVEN SCHEDULED. AMBULATORY WITH STEADY GAIT. PATIENT ABLE TO MAKE NEEDS KNOWN. BED IN THE LOWEST POSITION WITH BRAKES ENGAGED. HOURLY ROUNDING IN PLACE, CALL LIGHT AND PERSONAL ITEMS WITHIN EASY REACH, ALL NEEDS MET PATIENT WITH NO COMPLAINT. ENDORSED TO DAY SHIFT RN.
[2018-07-22] MEDS: INSULIN ASPART [NOVOLOG] 3 ML PEN SC SCH ×7 (08:00→21:00)
--- NOTE | 2018-07-22 08:52 | PN ---
DATE: 07/22/2018 SUBJECTIVE: The patient is stable, no events overnight. No fevers, chills, nausea, or vomiting. OBJECTIVE: VITAL SIGNS: Blood pressure is 122/57, respirations 19, pulse 75, temperature 98.2. HEENT: Head is normocephalic. NECK: Supple. HEART: Regular rate. LUNGS: Show diminished breath sounds at the base. ABDOMEN: Soft, nontender to palpation without rebound or guarding. EXTREMITIES: Negative for clubbing, cyanosis, no edema. DERMATOLOGIC: No rashes. MUSCULOSKELETAL: No joint effusion. NEUROLOGIC: No change in exam. MEDICATIONS: Reviewed. LABORATORY DATA: Shows white count 9.2, hemoglobin 8.5, platelet count is 357. Sodium 137, potassiu m 4.5, chloride 108, BUN 40, creatinine 3.85. ASSESSMENT AND PLAN: 1. Nonoliguric acute kidney injury on top of chronic kidney disease stage IV with previous baseline creatinine of 3.0 mg/dL. Etiology of acute kidney injury is secondary to contrast-associated nephrop athy. The patient's renal function has improved, been stable in the last 24 hours. Please note I di scussed with the patient about the risk of cardiac catheterization with the possibility of worsening renal function and necessity of dialysis. The patient was aware. We would continue the patient on M ucomyst and IV hydration prior to any procedure. 2. Chronic kidney disease stage IV with nephrotic range proteinuria. Etiology is secondary to diabe tic nephropathy. The patient is currently in acute kidney injury as stated above. Continue current treatment plan. Continue disease factor modification. 3. Anemia. Continue to monitor hemoglobin and hematocrit levels. 4. Mineral bone disorder. Monitor calcium and phosphorous levels. 5. Metabolic acidosis secondary to acute kidney injury and chronic kidney disease. Continue to sina tor. 6. Diabetes. Continue current insulin regimen. 7. Coronary artery disease, status post percutaneous coronary intervention to right coronary artery. Continue to monitor. 8. Hypertension. Continue current blood pressure regimen. Defer any SAMANTHA inhibitor or ARB at this t jam[place]. Dictated By: GRAMEE BRANDT DO NR/NTS Conf#: [id number] DID#: [id number] CC: JEANNIE FREITAS MD; BHARATH KING MD; SCOT MCKEON MD;*End*
[2018-07-22] MEDS: SENNA/DOCUSATE NA (8.6MG/50MG) TAB PO SCH ×2 (08:57→20:54)
[2018-07-22] MEDS: ASPIRIN 81 MG TAB PO SCH (08:57)
[2018-07-22] MEDS: ISOSORBIDE DINITRATE 20 MG TAB PO SCH ×3 (08:58→20:55)
[2018-07-22] MEDS: ACETYLCYSTEINE 600 MG CAP PO SCH ×2 (08:58→20:54)
[2018-07-22] MEDS: FAMOTIDINE 20 MG TAB PO SCH (08:58)
[2018-07-22] MEDS: AMLODIPINE 10 MG TAB PO SCH (08:58)
[2018-07-22] MEDS: RANOLAZINE (SR) 500 MG TAB PO SCH ×2 (08:59→20:54)
[2018-07-22] MEDS: TICAGRELOR 90 MG TABLET PO SCH ×2 (09:02→21:03)
--- NOTE | 2018-07-22 09:18 | CONS ---
Consult Date/Type/Reason Admit Date/Time Jul 06, 2018 at 12:07 Initial Consult Date 07/06/18 Type of Consultation: cv Requesting Provider: SCOT MCKEON Date/Time of Note DATE: 07/22/18 TIME: 09:13 Subjective Interventional cardiology follow-up progress note Subjective: Discussed with the staff tele was reviewed. pt remains in NSR with no AV block d/w physicians Patient with no chest pain or pressure now Patient with intermittent minimal nosebleed Events noted: Status post PCI of the right coronary artery using 3 drug-eluting stent on July 10, 2018. Objective: General: Obese gentleman no acute distress HEENT: NC/AT. pupils are equal. round. NECK: no stridor. CV: RRR. systolic murmur; no gallop or rubs. PULM: no wheezing . Mild rhonchi . GI: SOFT, NT, ND, no rebound or guarding Extremity: trace B/L LE edema. no clubbing. neuro: awake and alert, OX3. Psych: calm and pleasant rectal: deferred : normal EKG shows normal sinus rhythm. ST-T wave abnormalities suggestive of inferolateral ischemia Echocardiogram was reviewed which showed ejection fraction of 45% Chest x-ray shows: Mild cardiomegaly with pulmonary vascular congestion. Slightly more focal right lower lobe infiltrate. Chest x-ray done 07/12/2018 shows: The aorta is tortuous and atherosclerotic. The cardiomediastinal silhouette is otherwise mildly enlarged and is stable. Mild thickening of the minor fissure is suspected. The remaining lungs and pleural spaces are clear. The soft tissues and osseous structures demonstrate benign age related senescent changes. Objective Vitals Vital Signs Date Temp Pulse Resp B/P (MAP) Pulse Ox O2 O2 Flow FiO2 Time Delivery Rate 07/22/18 78 08:39 07/22/18 20 98 21 08:21 07/22/18 98.2 122/57 07:29 (78) 07/22/18 Room Air 03:40 07/21/18 2.0 14:03 Intake and Output 07/21/18 07/21/18 07/22/18 1515:00 23:00 07:00 IntakeIntake Total 800 ml 500 ml BalanceBalance 800 ml 500 ml Results/Medications Result Diagram: 07/22/18 0448 07/22/18 0448 Results 24 hrs Laboratory Tests Test 07/21/18 12:08 07/21/18 17:40 07/21/18 20:27 07/22/18 03:04 Bedside Glucose 145 122 97 103 Test 07/22/18 04:48 07/22/18 08:09 White Blood Count 9.2 Red Blood Count 2.99 L Hemoglobin 8.5 L Hematocrit 26.8 L Mean Corpuscular 89.6 Volume Mean Corpuscular 28.4 L Hemoglobin Mean Corpuscular 31.7 L Hemoglobin Concent Red Cell 13.4 Distribution Width Platelet Count 357 Mean Platelet Volume 9.7 Immature 0.900 H Granulocytes % Neutrophils % 69.9 Lymphocytes % 18.8 Monocytes % 7.8 Eosinophils % 1.9 Basophils % 0.7 Nucleated Red Blood 0.0 Cells % Immature 0.080 H Granulocytes # Neutrophils # 6.4 Lymphocytes # 1.7 Monocytes # 0.7 Eosinophils # 0.2 Basophils # 0.1 Nucleated Red Blood 0.0 Cells # Sodium Level 137 Potassium Level 4.5 Chloride Level 108 Carbon Dioxide Level 20 L Anion Gap 9 Blood Urea Nitrogen 40 H Creatinine 3.85 H Glucose Level 92 Calcium Level 8.7 Phosphorus Level 5.2 H Magnesium Level 1.9 Albumin 3.1 L Bedside Glucose 85 Home Meds Active Scripts Carvedilol* (Carvedilol*) 6.25 Mg Tablet, 6.25 MG PO BID for 60 Days, #120 TAB Prov:BHARATH KING MD 04/13/17 Reported Medications Insulin Glargine* (Lantus*) 100 Unit/Ml Soln, 30 UNIT SC DAILY, #1 VIAL 04/05/17 Aspirin (Low Dose Aspirin) 81 Mg Tablet.dr, 81 MG PO DAILY, #30 TAB 04/05/17 Atorvastatin Calcium* (Atorvastatin Calcium*) 20 Mg Tablet, 20 MG PO QHS, #30 TAB 04/05/17 Amlodipine Besylate* (Amlodipine Besylate*) 10 Mg Tablet, 10 MG PO DAILY, #30 TAB 04/05/17 Medications Current Medications IV Flush (NS 3 ml) 3 ml PER PROTOCOL IV ; Start 07/06/18 at 13:00 Ondansetron HCl (Zofran Inj) 4 mg Q6H PRN IV NAUSEA/VOMITING Last administered on 07/10/18at 16:48; Admin Dose 4 MG; Start 07/06/18 at 13:00 Aspirin (Aspirin) 81 mg DAILY PO Last administered on 07/22/18at 08:57; Admin Dose 81 MG; Start 07/07/18 at 09:00 Nitroglycerin (Nitroglycerin (Sl Tab) 0.4 Mg) 1 tab Q5M PRN SL .CHEST PAIN; Start 07/06/18 at 13:00 Acetaminophen (Tylenol Tab) 650 mg Q6H PRN PO .PAIN 1-3 OR TEMP; Start 07/06/18 at 13:00 Acetaminophen/ Hydrocodone Bitart ([place] (5/325)) 1 tab Q6H PRN PO .PAIN 4-6 Last administered on 07/10/18at 12:00; Admin Dose 1 TAB; Start 07/06/18 at 13:00 Famotidine (Pepcid) 20 mg DAILY PO Last administered on 07/22/18at 08:58; Admin Dose 20 MG; Start 07/06/18 at 14:00 Insulin Glargine (Lantus) 19 units DAILY@2000 SC Last administered on 07/21/18at 20:35; Admin Dose 19 UNITS; Start 07/06/18 at 20:00 Insulin Aspart (Novolog Insulin Pen) 5 unit WITH MEALS SC Last administered on 07/22/18at 08:29; Admin Dose 5 UNIT; Start 07/06/18 at 18:00 Insulin Aspart (Novolog Insulin Pen) NOVOLOG *MILD* ALGORITHM WITH MEALS BEDTIME SC Last administered on 07/21/18at 12:14; Admin Dose 1 UNIT; Start 07/06/18 at 18:00 Miscellaneous Information 1 ea NOTE XX ; Start 07/06/18 at 14:30 Glucose (Glutose) 15 gm Q15M PRN PO DECREASED GLUCOSE; Start 07/06/18 at 14:30 Glucose (Glutose) 22.5 gm Q15M PRN PO DECREASED GLUCOSE; Start 07/06/18 at 14:30 Dextrose (D50w Syringe) 25 ml Q15M PRN IV DECREASED GLUCOSE; Start 07/06/18 at 14:30 Dextrose (D50w Syringe) 50 ml Q15M PRN IV DECREASED GLUCOSE; Start 07/06/18 at 14:30 Glucagon (Glucagen) 1 mg Q15M PRN IM DECREASED GLUCOSE; Start 07/06/18 at 14:30 Glucose (Glutose) 15 gm Q15M PRN BUCCAL DECREASED GLUCOSE; Start 07/06/18 at 14:30 Labetalol HCl (Labetalol) 10 mg Q4 PRN IV sbp >160 Last administered on 07/09/18 04:19; Admin Dose 10 MG; Start 07/06/18 at 15:00 Atorvastatin Calcium (Lipitor) 80 mg HS PO Last administered on 07/21/18 20:28; Admin Dose 80 MG; Start 07/06/18 at 21:00 Isosorbide Dinitrate (Isordil) 20 mg TID PO Last administered on 07/22/18 08:58; Admin Dose 20 MG; Start 07/06/18 at 21:00 Carvedilol (Coreg) 3.125 mg BID PO Last administered on 07/22/18 08:59; Admin Dose 3.125 MG; Start 07/08/18 at 09:00 Hydralazine HCl (Apresoline) 50 mg TID PO Last administered on 07/22/18 08:58; Admin Dose 50 MG; Start 07/08/18 at 09:00 Morphine Sulfate (morphine) 6 mg Q4H PRN PO SEVERE PAIN LEVEL 7-10 Last administered on 07/10/18 16:48; Admin Dose 6 MG; Start 07/08/18 at 22:00 Acetylcysteine (Nac) 600 mg BID PO Last administered on 07/22/18 08:58; Admin Dose 600 MG; Start 07/09/18 at 09:00 Amlodipine Besylate (Norvasc) 10 mg DAILY PO Last administered on 07/22/18 08:58; Admin Dose 10 MG; Start 07/09/18 at 09:00 Ticagrelor (Brilinta) 90 mg BID PO Last administered on 07/22/18 09:02; Admin Dose 90 MG; Start 07/10/18 at 09:00 Albuterol/ Ipratropium (Duoneb) 3 ml Q6H RESP THERAPY HHN Last administered on 07/22/18 08:10; Admin Dose 3 ML; Start 07/12/18 at 16:30 Albuterol/ Ipratropium (Duoneb) 3 ml Q6H RESP THERAPY PRN HHN wheezing; Start 07/12/18 at 16:30 Ranolazine (Ranexa) 500 mg Q12 PO Last administered on 07/22/18 08:59; Admin Dose 500 MG; Start 07/12/18 at 21:00 Heparin Sodium (Porcine) (Heparin (1000 Units/ml)) 4,000 unit PER PROTOCOL PRN IV aPTT<47; Start 07/12/18 at 19:00; Status Hold Heparin Sodium (Porcine) 250 ml @ 10 mls/hr PER PROTOCOL IV Last administered on 07/12/18at 20:23; Admin Dose 10 MLS/HR; Start 07/12/18 at 19:30; Status Hold Sodium Chloride (Deep Sea) 2 spray Q4HWA PRN NASAL congestion Last administered on 07/16/18 05:19; Admin Dose 2 SPRAY; Start 07/15/18 at 18:00 Senna/Docusate Sodium (Senokot-S) 1 tab BID PO Last administered on 07/22/18 08:57; Admin Dose 1 TAB; Start 07/20/18 at 11:00 Assessment/Plan Hospital Course (Demo Recall) 1. Non-ST elevation myocardial infarction 2. Coronary artery disease with history of previous MIs 3. History of PCI 4. Hypertension 5. Diabetes 6. Congestive heart failure class IV on arrival 7. Dyslipidemia 8. Active smoker and possibly COPD 9. Renal failure acute on chronic: ATN 10. Episode of 2-1 AV block so far asymptomatic Recommendations: Aspirin and Brilinta will be continued inc carvedilol to 6.25 p.o. twice daily and continue hydralazine to his regimen. dec norvasc to avoid hypotension Nitroglycerin to be continued as well Continue with statins cont Ranexa Off of any SAMANTHA inhibitor or ARB due to his renal insufficiency Follow-up renal function. Patient also has significant stenosis of his left circumflex artery stent. We will plan for possibly perform PCI of this lesion once his renal function improves. Hopefully within the next 1-2 days if , patient renal function is stabilized to the point that he can have the PCI done Thank you for his referral. 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
--- NOTE | 2018-07-22 14:41 | NUR ---
NUTRITION NOTE: Pending possible cardiac cath. ADITHYA on CKD, not currently on dialysis. Tolerating PO, eating 75-100%. Denies n/v/d. Noted Phos consistently elevated. Rec change diet to renal carb controlled diet.
--- NOTE | 2018-07-22 15:47 | PN ---
Date/Time of Note Date/Time of Note DATE: 07/22/18 TIME: 15:46 Assessment/Plan VTE Prophylaxis Risk score (from Nsg)>0 risk: 3 SCD applied (from Nsg): Yes Pharmacological prophylaxis: heparin Lines/Catheters IV Catheter Type (from Nrs): Saline Lock Urinary Cath still in place: No Assessment/Plan Hospital Course 62 yo male with CKD IV, CAD who presented with NSTEMI. Underwent PCI. Suffered ADITHYA. Plan to repeat [facility] for staged PCI however we are waiting for renal function to stabilize prior to this 1. Acute kidney injury on CKD - Creatinine stable - Discussion with Nephrology regarding plan of care and will await Dr. Benedict's recommendations on timing for PCI. Patient is a high risk for further nephropathy and may require HD in the near future if renal function worsens af ter PCI. Discussed with patient and open to HD if needed - ADITHYA Secondary to contrast-associated nephropathy and given proteinuria has CKD component from diabetic nephropathy - Nephrology consultation appreciated. - will continue monitoring and avoid nephrotoxic agents 2. Non-ST elevated CA s/p PCI- stable - Remains asymptomatic. - Continue on DAPT - Cardiology on board and appreciate recommendations. Will need repeat PCI given stenosis of left circumflex stent prior to discharge - Patient underwent cardiac cath received stent x3 in the RCA 3. Anemia - continues to fluctuate but no active bleeding appreciate. Will continue to monitor given on Brilinta and aspirin 4. Diabetes mellitus - Insulin while in house 5. Hypertension - stable 6. JUAN JOSÉ - will need outpatient pulm follow up for sleep study - refusing CPAP 7. Disposition - Will await recommendations from Dr. Benedict regarding PCI timing. Renal function continues to improve but has been very slow progression - Continue all current treatment Result Diagram: 07/22/188 07/22/188 Results 24hrs Laboratory Tests Test 07/21/18 17:40 07/21/18 20:27 07/22/18 03:04 07/22/18 04:48 Bedside Glucose 122 97 103 White Blood Count 9.2 Red Blood Count 2.99 L Hemoglobin 8.5 L Hematocrit 26.8 L Mean Corpuscular 89.6 Volume Mean Corpuscular 28.4 L Hemoglobin Mean Corpuscular 31.7 L Hemoglobin Concent Red Cell 13.4 Distribution Width Platelet Count 357 Mean Platelet Volume 9.7 Immature 0.900 H Granulocytes % Neutrophils % 69.9 Lymphocytes % 18.8 Monocytes % 7.8 Eosinophils % 1.9 Basophils % 0.7 Nucleated Red Blood 0.0 Cells % Immature 0.080 H Granulocytes # Neutrophils # 6.4 Lymphocytes # 1.7 Monocytes # 0.7 Eosinophils # 0.2 Basophils # 0.1 Nucleated Red Blood 0.0 Cells # Sodium Level 137 Potassium Level 4.5 Chloride Level 108 Carbon Dioxide Level 20 L Anion Gap 9 Blood Urea Nitrogen 40 H Creatinine 3.85 H Glucose Level 92 Calcium Level 8.7 Phosphorus Level 5.2 H Magnesium Level 1.9 Albumin 3.1 L Test 07/22/18 08:09 07/22/18 11:51 Bedside Glucose 85 128 Subjective 24 Hr Interval Summary Free Text/Dictation Ambulating around unit No complaints No CP Awaits repeat [facility] Exam/Review of Systems Exam Vitals Vital Signs Date Temp Pulse Resp B/P (MAP) Pulse Ox O2 O2 Flow FiO2 Time Delivery Rate 07/22/18 97.7 70 19 136/65 96 15:28 (88) 07/22/18 21 14:04 07/22/18 Nasal 2.0 08:05 Cannula Intake and Output 07/21/18 07/21/18 07/22/18 1515:00 23:00 07:00 IntakeIntake Total 800 ml 500 ml BalanceBalance 800 ml 500 ml Constitutional: alert, oriented, well developed Psych: no complaints, nl mood/affect Head: normocephalic, atraumatic Eyes: nl conjunctiva, EOMI, nl lids, nl sclera, PERRL ENMT: nl external ears & nose, nl lips & teeth, nl nasal mucosa & septum Neck: supple, non-tender Respiratory: clear to auscultation, normal air movement Cardiovascular: regular rate and rhythm, nl pulses Gastrointestinal: soft, nl liver, spleen, non-tender Musculoskeletal: nl extremities to inspection, nl gait and stance Extremities: normal pulses Neurological: DIRECTOR PHARMACOLOGY II-XII intact, nl mental status, nl speech, nl strength Skin: nl turgor; No rash or lesions Lymph: nl lymph nodes Results Results 24hrs Laboratory Tests Test 07/21/18 17:40 07/21/18 20:27 07/22/18 03:04 07/22/18 04:48 Bedside Glucose 122 97 103 White Blood Count 9.2 Red Blood Count 2.99 L Hemoglobin 8.5 L Hematocrit 26.8 L Mean Corpuscular 89.6 Volume Mean Corpuscular 28.4 L Hemoglobin Mean Corpuscular 31.7 L Hemoglobin Concent Red Cell 13.4 Distribution Width Platelet Count 357 Mean Platelet Volume 9.7 Immature 0.900 H Granulocytes % Neutrophils % 69.9 Lymphocytes % 18.8 Monocytes % 7.8 Eosinophils % 1.9 Basophils % 0.7 Nucleated Red Blood 0.0 Cells % Immature 0.080 H Granulocytes # Neutrophils # 6.4 Lymphocytes # 1.7 Monocytes # 0.7 Eosinophils # 0.2 Basophils # 0.1 Nucleated Red Blood 0.0 Cells # Sodium Level 137 Potassium Level 4.5 Chloride Level 108 Carbon Dioxide Level 20 L Anion Gap 9 Blood Urea Nitrogen 40 H Creatinine 3.85 H Glucose Level 92 Calcium Level 8.7 Phosphorus Level 5.2 H Magnesium Level 1.9 Albumin 3.1 L Test 07/22/18 08:09 07/22/18 11:51 Bedside Glucose 85 128 Medications Medication Current Medications IV Flush (NS 3 ml) 3 ml PER PROTOCOL IV ; Start 07/06/18 at 13:00 Ondansetron HCl (Zofran Inj) 4 mg Q6H PRN IV NAUSEA/VOMITING Last administered on 07/10/18at 16:48; Admin Dose 4 MG; Start 07/06/18 at 13:00 Aspirin (Aspirin) 81 mg DAILY PO Last administered on 07/22/18at 08:57; Admin Dose 81 MG; Start 07/07/18 at 09:00 Nitroglycerin (Nitroglycerin (Sl Tab) 0.4 Mg) 1 tab Q5M PRN SL .CHEST PAIN; Start 07/06/18 at 13:00 Acetaminophen (Tylenol Tab) 650 mg Q6H PRN PO .PAIN 1-3 OR TEMP; Start 07/06/18 at 13:00 Acetaminophen/ Hydrocodone Bitart ([place] (5/325)) 1 tab Q6H PRN PO .PAIN 4-6 Last administered on 07/10/18at 12:00; Admin Dose 1 TAB; Start 07/06/18 at 13:00 Famotidine (Pepcid) 20 mg DAILY PO Last administered on 07/22/18at 08:58; Admin Dose 20 MG; Start 07/06/18 at 14:00 Insulin Glargine (Lantus) 19 units DAILY@2000 SC Last administered on 07/21/18at 20:35; Admin Dose 19 UNITS; Start 07/06/18 at 20:00 Insulin Aspart (Novolog Insulin Pen) 5 unit WITH MEALS SC Last administered on 07/22/18at 11:56; Admin Dose 5 UNIT; Start 07/06/18 at 18:00 Insulin Aspart (Novolog Insulin Pen) NOVOLOG *MILD* ALGORITHM WITH MEALS BEDTIME SC Last administered on 07/21/18at 12:14; Admin Dose 1 UNIT; Start 07/06/18 at 18:00 Miscellaneous Information 1 ea NOTE XX ; Start 07/06/18 at 14:30 Glucose (Glutose) 15 gm Q15M PRN PO DECREASED GLUCOSE; Start 07/06/18 at 14:30 Glucose (Glutose) 22.5 gm Q15M PRN PO DECREASED GLUCOSE; Start 07/06/18 at 14:30 Dextrose (D50w Syringe) 25 ml Q15M PRN IV DECREASED GLUCOSE; Start 07/06/18 at 14:30 Dextrose (D50w Syringe) 50 ml Q15M PRN IV DECREASED GLUCOSE; Start 07/06/18 at 14:30 Glucagon (Glucagen) 1 mg Q15M PRN IM DECREASED GLUCOSE; Start 07/06/18 at 14:30 Glucose (Glutose) 15 gm Q15M PRN BUCCAL DECREASED GLUCOSE; Start 07/06/18 at 14:30 Labetalol HCl (Labetalol) 10 mg Q4 PRN IV sbp >160 Last administered on 07/09/18at 04:19; Admin Dose 10 MG; Start 07/06/18 at 15:00 Atorvastatin Calcium (Lipitor) 80 mg HS PO Last administered on 07/21/18at 20:28; Admin Dose 80 MG; Start 07/06/18 at 21:00 Isosorbide Dinitrate (Isordil) 20 mg TID PO Last administered on 07/22/18at 13:23; Admin Dose 20 MG; Start 07/06/18 at 21:00 Hydralazine HCl (Apresoline) 50 mg TID PO Last administered on 07/22/18 13:20; Admin Dose 50 MG; Start 07/08/18 at 09:00 Morphine Sulfate (morphine) 6 mg Q4H PRN PO SEVERE PAIN LEVEL 7-10 Last administered on 07/10/18 16:48; Admin Dose 6 MG; Start 07/08/18 at 22:00 Acetylcysteine (Nac) 600 mg BID PO Last administered on 07/22/18 08:58; Admin Dose 600 MG; Start 07/09/18 at 09:00 Ticagrelor (Brilinta) 90 mg BID PO Last administered on 07/22/18 09:02; Admin Dose 90 MG; Start 07/10/18 at 09:00 Albuterol/ Ipratropium (Duoneb) 3 ml Q6H RESP THERAPY HHN Last administered on 07/22/18 13:55; Admin Dose 3 ML; Start 07/12/18 at 16:30 Albuterol/ Ipratropium (Duoneb) 3 ml Q6H RESP THERAPY PRN HHN wheezing; Start 07/12/18 at 16:30 Ranolazine (Ranexa) 500 mg Q12 PO Last administered on 07/22/18 08:59; Admin Dose 500 MG; Start 07/12/18 at 21:00 Sodium Chloride (Deep Sea) 2 spray Q4HWA PRN NASAL congestion Last administered on 07/16/18 05:19; Admin Dose 2 SPRAY; Start 07/15/18 at 18:00 Senna/Docusate Sodium (Senokot-S) 1 tab BID PO Last administered on 07/22/18 08:57; Admin Dose 1 TAB; Start 07/20/18 at 11:00 Amlodipine Besylate (Norvasc) 5 mg DAILY PO ; Start 07/23/18 at 09:00 Carvedilol (Coreg) 6.25 mg BID PO ; Start 07/22/18 at 21:00 BHARATH KING MD Jul 22, 2018 15:47
[2018-07-22] MEDS: ATORVASTATIN 80 MG TAB PO SCH (20:54)
[2018-07-22] MEDS: INSULIN GLARGINE [LANTus] (100 UNITS/ML) SYG SC SCH (21:03)
[2018-07-23] VITALS (26 sets, daily range): BP systolic 130–160; BP diastolic 60–84; PULSE 62–86; RESP 13–20
[2018-07-23] MEDS: SOD CHLORIDE 0.9% 1,000 ML IV SCH ×2 (00:04→20:00)
[2018-07-23] MEDS: ALBUTEROL/IPRATROPIUM (NEB) 3 ML AMP HHN SCH ×4 (01:22→19:39)
[2018-07-23] MEDS ORDERED: IODIXANOL LOCM 100 ML BTL ONE (06:36)
[2018-07-23] MEDS ORDERED: HEPARIN 1000 UNITS/ML 10 ML INJ ONE (06:36)
[2018-07-23] MEDS ORDERED: MIDAZOLAM 1 MG/ML 2 ML INJ ONE (06:36)
[2018-07-23] MEDS ORDERED: FENTAnyl 50 MCG/ML VIAL ONE (06:36)
[2018-07-23] MEDS ORDERED: LIDOCAINE 1% (MDV) 20 ML INJ ONE (06:36)
[2018-07-23] MEDS ORDERED: NITROGLYCERIN (IC) 100 MCG/ML INJ ONE (06:37)
[2018-07-23] MEDS ORDERED: VERAPAMIL 5 MG INJ ONE (06:37)
--- NOTE | 2018-07-23 07:00 | NUR ---
RN NOTE PATIENT OFF THE UNIT, LEFT FOR HEART CATH.
--- NOTE | 2018-07-23 07:28 | NUR ---
RN END OF SHIFT NOTE PATIENT ALERT AND ORIENTED X 4, DENIED PAIN, AMBULATORY WITH STEADY GAIT. AT THE BEDSIDE. PATIENT LEFT FOR HEART CATH AT 0700, HE HAS BEEN NPO SINCE MIDNIGHT.CONSENT IN CHART AND SIGNED. PATIENT AND VERBALIZED UNDERSTANDING OF SCHEDULED PROCEDURE. ENDORSED TO DAY SHIFT RN.
[2018-07-23] MEDS ORDERED: SOD CHLORIDE 0.9% 500 ML ONE (07:38)
[2018-07-23] MEDS: INSULIN ASPART [NOVOLOG] 3 ML PEN SC SCH ×7 (07:57→21:48)
[2018-07-23] MEDS ORDERED: BIVALIRUDIN 250MG /NS 50 ML 50 ML IVPB ONE (08:09)
[2018-07-23] MEDS ORDERED: TICAGRELOR 90 MG TABLET ONE (08:16)
[2018-07-23] MEDS ORDERED: ASPIRIN 81 MG TAB ONE (08:16)
[2018-07-23] MEDS ORDERED: SOD CHLORIDE 0.9% 1,000 ML IV SCH (08:31)
--- NOTE | 2018-07-23 08:31 | OPR ---
Date/Time of Note Date/Time of Note DATE: 07/23/18 TIME: 08:26 Operative Report Procedure Date: Jul 23, 2018 Preoperative Diagnosis NSTEMI Postoperative Diagnosis NSTEMI Operation/Procedure Performed PCI LCX Surgeon see signature line [place] Diver none Anesthesia Type: moderate sedation Estimated Blood Loss: minimal Transfusion none Specimen none Grafts/Implants none Complications none Procedure Description Client Service Representative: Jeannie Benedict MD Indication: NSTEMI. 61-year-old gentleman with diabetes hypertension renal insufficiency who had undergone PCI of his right coronary artery couple of weeks ago after he presented with non-ST elevation myocardial infarction. Patient with recurrent postinfarct angina. He was noted to have significant left sigmoid artery stenosis of the previous stents. PCI of this lesion was not done at that time because of concern about contrast nephropathy and renal failure. He was brought in today for the procedure after his renal function stabilized and clearance was obtained from the renal consultants as well Procure performed: #1 left heart catheterization and selective left coronary angiogram #2 Right femoral angiogram and closure using a Perclose device 3. Successful PTCA and stenting of mid left circumflex artery using a 2.5 x 38 mm Synergy drug-eluting stent and a 2.75 x 12 mm Synergy drug-eluting stent 4. Moderate sedation for more than 60 minutes Findings: 1. Left main: is normal and birfurcates to LAD & LCX. 2. LAD: Is a small has 20 % stenosis at proximal LAD, and 40 % stenosis at mid LAD right after the previous stent. Diagonal is a very small vessel and is jailed and has 99% ostial stenosis. 3. Left circumflex artery: is nondominant. it has 95-99% stenosis at the distal portion of the previous stent at the mid left circumflex artery. Has 2 different areas with a high-grade stenosis. After successful PCI of this lesion there was no significant residual stenosis left 5. LV: 166/25 aortic pressure by pull back: 166/72 Procedure in detail: Written informed consent with obtained after risks benefits and alternatives discussed with the patient in detail. risks including but not limited to risk of infection vascular complications, bleeding complications, IN stroke arrhythmia renal failure at even were discussed with the patient in detail. Patient was brought into the cardiac recyclable materials distributor and placed in supine position. Right and left groin area was prepped and draped in regular sterile fashion and then he was in anesthetized using 1% lidocaine. Right femoral artery was cannulated and using modified seldinger technique a 6 [place]ese sheath was placed in the femoral artery. Femoral angiogram was performed Then a pigtail was advanced to engage the left ventricle hemodynamics as recorded by pullback aortic pressure was measured. At this time we decided to perform PCI of the left circumflex artery. A JL4 guiding catheter was advanced to engage the left main coronary artery. BMW wire was used and advanced across the lesion and placed distal to the lesion. I used a 2.5 x 8 mm noncompliant balloon which was placed across the lesion and predilated the vessel. Then I used a 2.5 x 38 mm Synergy drug-eluting stent which was placed across the lesion and deployed at 12 Binu. Then another 2.75 x 12 mm Synergy drug-eluting stent was used placed across the mid left circumflex artery lesion just proximal to the previous stent. Finally a 3 x 12 noncompliant balloon was used and postdilated the stent and up to 18 Binu. Final angiographic view was obtained which showed BRYCE-3 flow no evidence of dissection and no significant residual stenosis at the site of the stent. perclose was successfully deployed. Patient tolerated the procedure well with no complication. Patient was transferred to ICU in stable condition. contrast used: 20cc Visipaque Conclusions: Successful PTCA stenting of the left circumflex artery from 95-99% stenosis to no significant residual stenosis using a 2.5 x 38 and 2.75 x 12 mm Synergy stent. Recommendations: Aggressive medical therapy. aspirin indefinitely dual antiplatlet therapy with aspirin and Brilinta for the minimal next 1 year ICU care overnight. JEANNIE BENEDICT MD [facility] JEANNIE BENEDICT MD Jul 23, 2018 08:31
--- NOTE | 2018-07-23 08:42 | PN ---
DATE: 07/23/2018 SUBJECTIVE: The patient is stable, no events overnight. OBJECTIVE: VITAL SIGNS: Blood pressure is 136/67, respirations 18, pulse 69, temperature 97.9. HEENT: Head is normocephalic. NECK: Supple. HEART: Regular rate. LUNGS: Show diminished breath sounds at the base. ABDOMEN: Soft, nontender to palpation without rebound or guarding. EXTREMITIES: Negative for clubbing, cyanosis, no edema. DERMATOLOGIC: No rashes. MUSCULOSKELETAL: No joint effusion. NEUROLOGIC: No change in exam. MEDICATIONS: Reviewed. LABORATORY DATA: Sodium 138, potassium 4.3, chloride 108, bicarbonate 20, BUN 37, creatinine 3.71. White count is 10.0, hemoglobin 8.0, platelet count is 369. ASSESSMENT AND PLAN: 1. Nonoliguric acute kidney injury on top of chronic kidney disease stage IV with previous baseline creatinine of 3.0 mg/dL. Etiology of acute kidney injury is secondary to contrast-associated nephrop athy. The patient's renal function continues to improve. The patient is pending cardiac catheteriza tion today. We will continue to monitor closely for any signs of recurrent contrast-associated nephr opathy. Continue Mucomyst. Continue IV hydration. 2. Chronic kidney disease stage IV with nephrotic range proteinuria. Etiology is secondary to diabe tic nephropathy. The patient was in acute kidney injury as stated above. Continue current treatment plan. Continue disease factor modification. 3. Anemia. Continue to monitor hemoglobin and hematocrit levels. 4. Mineral bone disorder. Monitor calcium and phosphorus levels. 5. Metabolic acidosis secondary to acute kidney injury and chronic kidney disease. Continue to sina tor. 6. Diabetes. Continue current insulin regimen. 7. Coronary artery disease, status post percutaneous coronary intervention. Continue to monitor. C ontinue medical management. Follow up with Cardiology. 8. Hypertension. Continue current blood pressure regimen. Defer any SAMANTHA inhibitor or ARB at this t jamison. Dictated By: GRAEME BRANDT DO NR/NTS Conf#: [id number] DID#: [id number] CC: BHARATH KING MD; JEANNIE FREITAS MD; SCOT MCKEON MD;*EndCC*
--- NOTE | 2018-07-23 08:45 | NUR ---
nursing rr RECEIVED PT FROM [facility] S/P LEFT HEART CATH .PT HAS R GROIN HAS SAFEGUARD WITH 20 CC OF AIR FOR BLEEDING CONTROL .NO HEMATOMA OR BLEEDING NOTED .PEDAL PULSE WITH DOPPLER .PT INSTRUCTED TO KEEP VAZQUEZ LEG STRAIGHT .PT VERBALIZING UNDERSTANDING .
--- NOTE | 2018-07-23 09:23 | CONS ---
Consult Date/Type/Reason Admit Date/Time Jul 06, 2018 at 12:07 Initial Consult Date 07/06/18 Type of Consultation: cv Requesting Provider: SCOT MCKEON Date/Time of Note DATE: 07/23/18 TIME: 09:16 Subjective Interventional cardiology follow-up progress note Subjective: Discussed with the staff tele was reviewed. pt remains in NSR with no AV block d/w physicians Patient with no chest pain or pressure now Patient with intermittent minimal nosebleed Events noted: Status post PCI of the right coronary artery using 3 drug-eluting stent on July 10, 2018. 07/23/18: PCI LCX using 2 RAUL ( 20 cc contrast) Objective: General: Obese gentleman no acute distress HEENT: NC/AT. pupils are equal. round. NECK: no stridor. CV: RRR. systolic murmur; no gallop or rubs. PULM: no wheezing . Mild rhonchi . GI: SOFT, NT, ND, no rebound or guarding Extremity: trace B/L LE edema. no clubbing. neuro: awake and alert, OX3. Psych: calm and pleasant rectal: deferred : normal R fem: no bleeding or hematoma. EKG shows normal sinus rhythm. ST-T wave abnormalities suggestive of inferolateral ischemia Echocardiogram was reviewed which showed ejection fraction of 45% Objective Vitals Vital Signs Date Temp Pulse Resp B/P (MAP) Pulse Ox O2 O2 Flow FiO2 Time Delivery Rate 07/23/18 66 18 140/75 98 Room Air 09:10 (96) 07/23/18 98.3 08:45 07/23/18 21 01:23 07/22/18 2.0 14:00 Intake and Output 07/22/18 07/22/18 07/23/18 1515:00 23:00 07:00 IntakeIntake Total 550 ml 450 ml BalanceBalance 550 ml 450 ml Results/Medications Result Diagram: 07/23/18 0507/23/18 05 Results 24 hrs Laboratory Tests Test 07/22/18 11:51 07/22/18 17:38 07/22/18 20:51 07/23/18 02:03 Bedside Glucose 128 136 138 72 Test 07/23/18 05:21 07/23/18 06:53 White Blood Count 10.0 Red Blood Count 2.88 L Hemoglobin 8.0 L Hematocrit 25.8 L Mean Corpuscular 89.6 Volume Mean Corpuscular 27.8 L Hemoglobin Mean Corpuscular 31.0 L Hemoglobin Concent Red Cell 13.9 Distribution Width Platelet Count 369 Mean Platelet Volume 9.6 Immature 0.700 H Granulocytes % Neutrophils % 73.7 Lymphocytes % 16.2 Monocytes % 6.9 Eosinophils % 1.9 Basophils % 0.6 Nucleated Red Blood 0.0 Cells % Immature 0.070 H Granulocytes # Neutrophils # 7.3 Lymphocytes # 1.6 Monocytes # 0.7 Eosinophils # 0.2 Basophils # 0.1 Nucleated Red Blood 0.0 Cells # Sodium Level 138 Potassium Level 4.3 Chloride Level 108 Carbon Dioxide Level 20 L Anion Gap 10 Blood Urea Nitrogen 37 H Creatinine 3.71 H Est Glomerular 17 L Filtrat Rate mL/min Glucose Level 53 #L Calcium Level 8.6 Phosphorus Level 4.9 Magnesium Level 1.9 Bedside Glucose 147 Home Meds Active Scripts Carvedilol* (Carvedilol*) 6.25 Mg Tablet, 6.25 MG PO BID for 60 Days, #120 TAB Prov:BHARATH KING MD 04/13/17 Reported Medications Insulin Glargine* (Lantus*) 100 Unit/Ml Soln, 30 UNIT SC DAILY, #1 VIAL 04/05/17 Aspirin (Low Dose Aspirin) 81 Mg Tablet.dr, 81 MG PO DAILY, #30 TAB 04/05/17 Atorvastatin Calcium* (Atorvastatin Calcium*) 20 Mg Tablet, 20 MG PO QHS, #30 TAB 04/05/17 Amlodipine Besylate* (Amlodipine Besylate*) 10 Mg Tablet, 10 MG PO DAILY, #30 TAB 04/05/17 Medications Current Medications IV Flush (NS 3 ml) 3 ml PER PROTOCOL IV ; Start 07/06/18 at 13:00 Ondansetron HCl (Zofran Inj) 4 mg Q6H PRN IV NAUSEA/VOMITING Last administered on 07/10/18at 16:48; Admin Dose 4 MG; Start 07/06/18 at 13:00 Aspirin (Aspirin) 81 mg DAILY PO Last administered on 07/22/18at 08:57; Admin Dose 81 MG; Start 07/07/18 at 09:00 Nitroglycerin (Nitroglycerin (Sl Tab) 0.4 Mg) 1 tab Q5M PRN SL .CHEST PAIN; Start 07/06/18 at 13:00 Acetaminophen (Tylenol Tab) 650 mg Q6H PRN PO .PAIN 1-3 OR TEMP; Start 07/06/18 at 13:00 Acetaminophen/ Hydrocodone Bitart ([place] (5/325)) 1 tab Q6H PRN PO .PAIN 4-6 Last administered on 07/10/18at 12:00; Admin Dose 1 TAB; Start 07/06/18 at 13:00 Famotidine (Pepcid) 20 mg DAILY PO Last administered on 07/22/18at 08:58; Admin Dose 20 MG; Start 07/06/18 at 14:00 Insulin Glargine (Lantus) 19 units DAILY@2000 SC Last administered on 07/22/18at 21:03; Admin Dose 19 UNITS; Start 07/06/18 at 20:00 Insulin Aspart (Novolog Insulin Pen) 5 unit WITH MEALS SC Last administered on 07/22/18at 17:44; Admin Dose 5 UNIT; Start 07/06/18 at 18:00 Insulin Aspart (Novolog Insulin Pen) NOVOLOG *MILD* ALGORITHM WITH MEALS BEDTIME SC Last administered on 07/22/18at 17:44; Admin Dose 1 UNIT; Start 07/06/18 at 18:00 Miscellaneous Information 1 ea NOTE XX ; Start 07/06/18 at 14:30 Glucose (Glutose) 15 gm Q15M PRN PO DECREASED GLUCOSE; Start 07/06/18 at 14:30 Glucose (Glutose) 22.5 gm Q15M PRN PO DECREASED GLUCOSE; Start 07/06/18 at 14:30 Dextrose (D50w Syringe) 25 ml Q15M PRN IV DECREASED GLUCOSE Last administered on 07/23/18at 06:40; Admin Dose 25 ML; Start 07/06/18 at 14:30 Dextrose (D50w Syringe) 50 ml Q15M PRN IV DECREASED GLUCOSE; Start 07/06/18 at 14:30 Glucagon (Glucagen) 1 mg Q15M PRN IM DECREASED GLUCOSE; Start 07/06/18 at 14:30 Glucose (Glutose) 15 gm Q15M PRN BUCCAL DECREASED GLUCOSE; Start 07/06/18 at 1 4:30 Labetalol HCl (Labetalol) 10 mg Q4 PRN IV sbp >160 Last administered on 07/09/18at 04:19; Admin Dose 10 MG; Start 07/06/18 at 15:00 Atorvastatin Calcium (Lipitor) 80 mg HS PO Last administered on 07/22/18 20:54; Admin Dose 80 MG; Start 07/06/18 at 21:00 Isosorbide Dinitrate (Isordil) 20 mg TID PO Last administered on 07/22/18 20:55; Admin Dose 20 MG; Start 07/06/18 at 21:00 Hydralazine HCl (Apresoline) 50 mg TID PO Last administered on 07/22/18 20:54; Admin Dose 50 MG; Start 07/08/18 at 09:00 Morphine Sulfate (morphine) 6 mg Q4H PRN PO SEVERE PAIN LEVEL 7-10 Last administered on 07/10/18 16:48; Admin Dose 6 MG; Start 07/08/18 at 22:00 Acetylcysteine (Nac) 600 mg BID PO Last administered on 07/22/18 20:54; Admin Dose 600 MG; Start 07/09/18 at 09:00 Ticagrelor (Brilinta) 90 mg BID PO Last administered on 07/22/18 21:03; Admin Dose 90 MG; Start 07/10/18 at 09:00 Albuterol/ Ipratropium (Duoneb) 3 ml Q6H RESP THERAPY HHN Last administered on 07/23/18 01:22; Admin Dose 3 ML; Start 07/12/18 at 16:30 Albuterol/ Ipratropium (Duoneb) 3 ml Q6H RESP THERAPY PRN HHN wheezing; Start 07/12/18 at 16:30 Ranolazine (Ranexa) 500 mg Q12 PO Last administered on 07/22/18 20:54; Admin Dose 500 MG; Start 07/12/18 at 21:00 Sodium Chloride (Deep Sea) 2 spray Q4HWA PRN NASAL congestion Last administered on 07/16/18 05:19; Admin Dose 2 SPRAY; Start 07/15/18 at 18:00 Senna/Docusate Sodium (Senokot-S) 1 tab BID PO Last administered on 07/22/18 20:54; Admin Dose 1 TAB; Start 07/20/18 at 11:00 Amlodipine Besylate (Norvasc) 5 mg DAILY PO ; Start 07/23/18 at 09:00 Carvedilol (Coreg) 6.25 mg BID PO Last administered on 07/22/18at 20:55; Admin Dose 6.25 MG; Start 07/22/18 at 21:00 Sodium Chloride 1,000 ml @ 50 mls/hr Q20H IV Last administered on 07/23/18at 00:04; Admin Dose 50 MLS/HR; Start 07/23/18 at 00:00 Sodium Chloride 1,000 ml @ 75 mls/hr [id number] IV ; Start 07/23/18 at 08:31; Stop 07/23/18 at 21:50 Assessment/Plan Hospital Course (Demo Recall) 1. Non-ST elevation myocardial infarction: s/p PCI RCA and LCX 2. Coronary artery disease with history of previous MIs 3. History of PCI 4. Hypertension 5. Diabetes 6. Congestive heart failure class IV on arrival 7. Dyslipidemia 8. Active smoker and possibly COPD 9. Renal failure acute on chronic: ATN 10. Episode of 2-1 AV block so far asymptomatic: resolved now Recommendations: Aspirin and Brilinta will be continued cont carvedilol to 6.25 p.o. twice daily and continue hydralazine to his regimen. norvasc 5 mg only to avoid hypotension Nitroglycerin to be continued as well Continue with statins cont Ranexa Off of any SAMANTHA inhibitor or ARB due to his renal insufficiency Thank you for his referral. 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
--- NOTE | 2018-07-23 10:10 | NUR ---
nursing rr Safeguard deflated as ordered no bleeding noted ,no hematoma will monitor for bleeding .
[2018-07-23] MEDS: ASPIRIN 81 MG TAB PO SCH (10:31)
[2018-07-23] MEDS: TICAGRELOR 90 MG TABLET PO SCH ×2 (10:32→21:41)
[2018-07-23] MEDS: ACETYLCYSTEINE 600 MG CAP PO SCH ×2 (10:32→21:35)
[2018-07-23] MEDS: ISOSORBIDE DINITRATE 20 MG TAB PO SCH ×3 (10:32→21:36)
[2018-07-23] MEDS: AMLODIPINE 5 MG TAB PO SCH (10:32)
[2018-07-23] MEDS: RANOLAZINE (SR) 500 MG TAB PO SCH ×2 (10:33→21:34)
[2018-07-23] MEDS: FAMOTIDINE 20 MG TAB PO SCH (10:33)
[2018-07-23] MEDS: SENNA/DOCUSATE NA (8.6MG/50MG) TAB PO SCH ×2 (10:33→21:46)
--- NOTE | 2018-07-23 10:50 | NUR ---
Nurse Notes Received Pt from senior label specialist via bed, Pt ao x 4 and stable at this time. VS 155/79 HR 70 RR 20 [id number] 98% denies any pain. Bilateral pedal pulse noted +2 with use of Doppler. Noted R groin still with safeguard per Davy BECK she will come back in 1 hour and deflate it. Charge nurse Sana made aware. Pt was instructed to keep right leg straight and to stay on complete bed rest until 1430. Pt's at bedside and was updated regarding plan of care. Belongings in room kept with Pt: 1 cellphone, 1 glasses, 1 sweater, 1 shirt, 1 pair of shoes, pants. Will continue to monitor Pt closely and reinforce teaching. Addendum: 07/23/18 at 1116 by SCOTT ALEJO RN Correction: Verified site in Addendum: 07/23/18 at 1121 by SCOTT ALEJO RN Correction: Verified R groin site with charge nurseSana. Noted safeguard in place with no air inflated noted on safeguard. Charge nurse Sana called PACU and s/w Davy BECK to verify per Davy she will come back in 1 hour to take out safeguard and replace with pressure dressing. Addendum: 07/23/18 at 1220 by SCOTT ALEJO RN @1150: Right groin site assessed still with safeguard on, no bleeding noted. Bilateral Pedal Pulse noted via Doppler. VSS @1200: KIRAN Bhatti came and removed safeguard. Placed gauzed with tegaderm dressing over puncture site. Pt reassessed, dressing clean dry and intact. Addendum: 07/23/18 at 1414 by SCOTT ALEJO RN Reassessed Pt, dressing clean dry and intact with no hematoma or bleeding noted. Pt stable at this time.
--- NOTE | 2018-07-23 10:50 | NUR ---
transfer PT TRANSFER TO [facility] ROOM 531 IN STABLE CONDITION ,REPORT GIVEN TO FLOOR RN CARE PROVIDED PER [facility] STAND[facility] .NO HEMATOMA OR BLEEDING UPON TRANSFER .
--- NOTE | 2018-07-23 11:12 | PN ---
Date/Time of Note Date/Time of Note DATE: 07/23/18 TIME: 11:12 Assessment/Plan VTE Prophylaxis Risk score (from Ns)>0 risk: 6 SCD applied (from [facility] [place]): No SCD contraindicated: low risk/ambulating Pharmacological prophylaxis: other (on brilinta 90mg BID ) Pharm contraindication: bleeding, other (s/p LHC today morning) Lines/Catheters IV Catheter Type (from [facility] Saline Lock Urinary Cath still in place: No Assessment/Plan Assessment/Plan 1. Acute NSTEMI s/p LHC with PTCA and stenting of left circumflex artery 2. acute kidney injury on CKD III due to hemodynamics 3. H/o HTN 4. H/o DM Ii 5. H/o JUAN JOSÉ 6. Anemia of chronic kindey disease Plan: S/p LHC with stenting of Left Cx aretery 07/23/18, pt is advised to keep leg flat ASA Brilinta 90mg pO BID, Ranexa 500mg BID, isordil 20mg TID, Hydralzine 50mg TID, ASA appreciate help from cardiology and Nephrology if Cr in AM labs then we will check with cardiology and nephrology for possible d/c in AM labs will follow up Result Diagram: 07/23/18 0507/23/18 0521 Results 24hrs Laboratory Tests Test 07/22/18 11:51 07/22/18 17:38 07/22/18 20:51 07/23/18 02:03 Bedside Glucose 128 136 138 72 Test 07/23/18 05:21 07/23/18 06:53 07/23/18 09:22 White Blood Count 10.0 Red Blood Count 2.88 L Hemoglobin 8.0 L Hematocrit 25.8 L Mean Corpuscular 89.6 Volume Mean Corpuscular 27.8 L Hemoglobin Mean Corpuscular 31.0 L Hemoglobin Concent Red Cell 13.9 Distribution Width Platelet Count 369 Mean Platelet Volume 9.6 Immature 0.700 H Granulocytes % Neutrophils % 73.7 Lymphocytes % 16.2 Monocytes % 6.9 Eosinophils % 1.9 Basophils % 0.6 Nucleated Red Blood 0.0 Cells % Immature 0.070 H Granulocytes # Neutrophils # 7.3 Lymphocytes # 1.6 Monocytes # 0.7 Eosinophils # 0.2 Basophils # 0.1 Nucleated Red Blood 0.0 Cells # Sodium Level 138 Potassium Level 4.3 Chloride Level 108 Carbon Dioxide Level 20 L Anion Gap 10 Blood Urea Nitrogen 37 H Creatinine 3.71 H Est Glomerular 17 L Filtrat Rate mL/min Glucose Level 53 #L Calcium Level 8.6 Phosphorus Level 4.9 Magnesium Level 1.9 Bedside Glucose 147 96 Subjective 24 Hr Interval Summary Free Text/Dictation s/p LHC today AM, s/p Successful PTCA stenting of the left circumflex artery Exam/Review of Systems Exam Vitals Vital Signs Date Temp Pulse Resp B/P (MAP) Pulse Ox O2 O2 Flow FiO2 Time Delivery Rate 07/23/18 98.3 64 18 140/74 99 Room Air 10:30 (96) 07/23/18 21 01:23 07/22/18 2.0 14:00 Intake and Output 07/22/18 07/22/18 07/23/18 1414:59 22:59 06:59 IntakeIntake Total 550 ml 450 ml BalanceBalance 550 ml 450 ml Constitutional: alert Psych: no complaints Head: normocephalic ENMT: nl external ears & nose Neck: supple, non-tender Respiratory: clear to auscultation Cardiovascular: regular rate and rhythm, nl pulses Gastrointestinal: soft, other (morbid obesity ) Musculoskeletal: nl extremities to inspection Extremities: normal pulses Neurological: 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 II-XII intact Skin: nl turgor Lymph: nl lymph nodes Results Results 24hrs Laboratory Tests Test 07/22/18 11:51 07/22/18 17:38 07/22/18 20:51 07/23/18 02:03 Bedside Glucose 128 136 138 72 Test 07/23/18 05:21 07/23/18 06:53 07/23/18 09:22 White Blood Count 10.0 Red Blood Count 2.88 L Hemoglobin 8.0 L Hematocrit 25.8 L Mean Corpuscular 89.6 Volume Mean Corpuscular 27.8 L Hemoglobin Mean Corpuscular 31.0 L Hemoglobin Concent Red Cell 13.9 Distribution Width Platelet Count 369 Mean Platelet Volume 9.6 Immature 0.700 H Granulocytes % Neutrophils % 73.7 Lymphocytes % 16.2 Monocytes % 6.9 Eosinophils % 1.9 Basophils % 0.6 Nucleated Red Blood 0.0 Cells % Immature 0.070 H Granulocytes # Neutrophils # 7.3 Lymphocytes # 1.6 Monocytes # 0.7 Eosinophils # 0.2 Basophils # 0.1 Nucleated Red Blood 0.0 Cells # Sodium Level 138 Potassium Level 4.3 Chloride Level 108 Carbon Dioxide Level 20 L Anion Gap 10 Blood Urea Nitrogen 37 H Creatinine 3.71 H Est Glomerular 17 L Filtrat Rate mL/min Glucose Level 53 #L Calcium Level 8.6 Phosphorus Level 4.9 Magnesium Level 1.9 Bedside Glucose 147 96 Medications Medication Current Medications IV Flush (NS 3 ml) 3 ml PER PROTOCOL IV ; Start 07/06/18 at 13:00 Ondansetron HCl (Zofran Inj) 4 mg Q6H PRN IV NAUSEA/VOMITING Last administered on 07/10/18 16:48; Admin Dose 4 MG; Start 07/06/18 at 13:00 Aspirin (Aspirin) 81 mg DAILY PO Last administered on 07/22/18 08:57; Admin Dose 81 MG; Start 07/07/18 at 09:00 Nitroglycerin (Nitroglycerin (Sl Tab) 0.4 Mg) 1 tab Q5M PRN SL .CHEST PAIN; Start 07/06/18 at 13:00 Acetaminophen (Tylenol Tab) 650 mg Q6H PRN PO .PAIN 1-3 OR TEMP; Start 07/06/18 at 13:00 Acetaminophen/ Hydrocodone Bitart ([place] (5/325)) 1 tab Q6H PRN PO .PAIN 4-6 Last administered on 07/10/18 12:00; Admin Dose 1 TAB; Start 07/06/18 at 13:00 Famotidine (Pepcid) 20 mg DAILY PO Last administered on 07/22/18 08:58; Admin Dose 20 MG; Start 07/06/18 at 14:00 Insulin Glargine (Lantus) 19 units DAILY@2000 SC Last administered on 07/22/18 21:03; Admin Dose 19 UNITS; Start 07/06/18 at 20:00 Insulin Aspart (Novolog Insulin Pen) 5 unit WITH MEALS SC Last administered on 07/22/18 17:44; Admin Dose 5 UNIT; Start 07/06/18 at 18:00 Insulin Aspart (Novolog Insulin Pen) NOVOLOG *MILD* ALGORITHM WITH MEALS BEDTIME SC Last administered on 07/22/18 17:44; Admin Dose 1 UNIT; Start 07/06/18 at 18:00 Miscellaneous Information 1 ea NOTE XX ; Start 07/06/18 at 14:30 Glucose (Glutose) 15 gm Q15M PRN PO DECREASED GLUCOSE; Start 07/06/18 at 14:30 Glucose (Glutose) 22.5 gm Q15M PRN PO DECREASED GLUCOSE; Start 07/06/18 at 14:30 Dextrose (D50w Syringe) 25 ml Q15M PRN IV DECREASED GLUCOSE Last administered on 07/23/18at 06:40; Admin Dose 25 ML; Start 07/06/18 at 14:30 Dextrose (D50w Syringe) 50 ml Q15M PRN IV DECREASED GLUCOSE; Start 07/06/18 at 14:30 Glucagon (Glucagen) 1 mg Q15M PRN IM DECREASED GLUCOSE; Start 07/06/18 at 14:30 Glucose (Glutose) 15 gm Q15M PRN BUCCAL DECREASED GLUCOSE; Start 07/06/18 at 14:30 Labetalol HCl (Labetalol) 10 mg Q4 PRN IV sbp >160 Last administered on 07/09/18at 04:19; Admin Dose 10 MG; Start 07/06/18 at 15:00 Atorvastatin Calcium (Lipitor) 80 mg HS PO Last administered on 07/22/18 20:54; Admin Dose 80 MG; Start 07/06/18 at 21:00 Isosorbide Dinitrate (Isordil) 20 mg TID PO Last administered on 07/22/18at 20:55; Admin Dose 20 MG; Start 07/06/18 at 21:00 Hydralazine HCl (Apresoline) 50 mg TID PO Last administered on 07/22/18 20:54; Admin Dose 50 MG; Start 07/08/18 at 09:00 Morphine Sulfate (morphine) 6 mg Q4H PRN PO SEVERE PAIN LEVEL 7-10 Last administered on 07/10/18at 16:48; Admin Dose 6 MG; Start 07/08/18 at 22:00 Acetylcysteine (Nac) 600 mg BID PO Last administered on 07/22/18 20:54; Admin Dose 600 MG; Start 07/09/18 at 09:00 Ticagrelor (Brilinta) 90 mg BID PO Last administered on 07/22/18at 21:03; Admin Dose 90 MG; Start 07/10/18 at 09:00 Albuterol/ Ipratropium (Duoneb) 3 ml Q6H RESP THERAPY HHN Last administered on 07/23/18 01:22; Admin Dose 3 ML; Start 07/12/18 at 16:30 Albuterol/ Ipratropium (Duoneb) 3 ml Q6H RESP THERAPY PRN HHN wheezing; Start 07/12/18 at 16:30 Ranolazine (Ranexa) 500 mg Q12 PO Last administered on 07/22/18 20:54; Admin Dose 500 MG; Start 07/12/18 at 21:00 Sodium Chloride (Deep Sea) 2 spray Q4HWA PRN NASAL congestion Last administered on 07/16/18 05:19; Admin Dose 2 SPRAY; Start 07/15/18 at 18:00 Senna/Docusate Sodium (Senokot-S) 1 tab BID PO Last administered on 07/22/18 20:54; Admin Dose 1 TAB; Start 07/20/18 at 11:00 Amlodipine Besylate (Norvasc) 5 mg DAILY PO ; Start 07/23/18 at 09:00 Carvedilol (Coreg) 6.25 mg BID PO Last administered on 07/22/18at 20:55; Admin Dose 6.25 MG; Start 07/22/18 at 21:00 Sodium Chloride 1,000 ml @ 50 mls/hr Q20H IV Last administered on 07/23/18 00:04; Admin Dose 50 MLS/HR; Start 07/23/18 at 00:00 Sodium Chloride 1,000 ml @ 75 mls/hr [id number] IV ; Start 07/23/18 at 08:31; Stop 07/23/18 at 21:50 OB GUTIERREZ MD Jul 23, 2018 11:12
--- NOTE | 2018-07-23 12:00 | NUR ---
NURSING WENT TO [facility] AND REMOVED SAFEGUARD WHICH WAS FILLETED AT 1010 PREVIOUSLY . NO BLEEDING OR HEMATOMA NOTED ,GROIN INDORSED TO KIRAN CHAVEZ .
--- NOTE | 2018-07-23 18:23 | NUR ---
EOSS Pt ao x 4 with at bedside. Pt stable and in no distress noted throughout the shift. Right groin site dressing noted to be clean dry and intact, no bleeding or hematoma noted. Bilateral pedal pulse noted +2. Pt off bedrest and ambulated as tolerated. VSS and no s/s of hypo/hyperglycemia noted. Hourly rounding done. Site assessed hourly with no bleeding or hematoma noted. Will endorse to next shift accordingly.
[2018-07-23] MEDS: ATORVASTATIN 80 MG TAB PO SCH (21:35)
[2018-07-23] MEDS: INSULIN GLARGINE [LANTus] (100 UNITS/ML) SYG SC SCH (21:44)
[2018-07-24] VITALS (8 sets, daily range): BP systolic 136–157; BP diastolic 61–72; PULSE 64–82; RESP 18–20
[2018-07-24] MEDS: ALBUTEROL/IPRATROPIUM (NEB) 3 ML AMP HHN SCH ×3 (01:50→13:33)
--- NOTE | 2018-07-24 06:00 | NUR ---
PT RESTING WELL NO C/O PAIN NO DISTRESS NOTED VSS
[2018-07-24] MEDS: INSULIN ASPART [NOVOLOG] 3 ML PEN SC SCH ×6 (07:55→17:08)
[2018-07-24] MEDS: FAMOTIDINE 20 MG TAB PO SCH (08:28)
[2018-07-24] MEDS: RANOLAZINE (SR) 500 MG TAB PO SCH (08:28)
[2018-07-24] MEDS: ACETYLCYSTEINE 600 MG CAP PO SCH (08:29)
[2018-07-24] MEDS: ASPIRIN 81 MG TAB PO SCH (08:29)
[2018-07-24] MEDS: TICAGRELOR 90 MG TABLET PO SCH (08:30)
[2018-07-24] MEDS: ISOSORBIDE DINITRATE 20 MG TAB PO SCH ×2 (08:31→12:10)
[2018-07-24] MEDS: AMLODIPINE 5 MG TAB PO SCH (08:31)
[2018-07-24] MEDS: SENNA/DOCUSATE NA (8.6MG/50MG) TAB PO SCH (08:33)
--- NOTE | 2018-07-24 11:38 | PN ---
DATE: 07/24/2018 SUBJECTIVE: The patient is stable, no events overnight. No fevers, chills, nausea, vomiting. Patie nt had good urinary output. OBJECTIVE: VITAL SIGNS: Blood pressure is 157/72, respiration 18, pulse 75, temperature 98.2. HEENT: Head is normocephalic. NECK: Supple. HEART: Regular rate. LUNGS: Show diminished breath sounds at the base. ABDOMEN: Soft, nontender to palpation without rebound or guarding. EXTREMITIES: Negative for clubbing, cyanosis, no edema. DERMATOLOGIC: No rashes. MUSCULOSKELETAL: No joint effusion. NEUROLOGIC: No change in exam. MEDICATIONS: Reviewed. LABORATORY DATA: From 07/24/2018 is currently pending. ASSESSMENT AND PLAN: 1. Nonoliguric acute kidney injury on top of chronic kidney disease stage IV with previous baseline creatinine of 3.0 mg/dL. Etiology of acute kidney injury is secondary to contrast-associated nephrop athy. The patient's renal function has improved. Repeat cardiac catheterization was yesterday with only 20 mL of contrast used. Plan is to follow up renal function today. Continue to monitor closely . 2. Chronic kidney disease stage IV with nephrotic range proteinuria. Etiology secondary to diabetic nephropathy. The patient is currently in acute kidney injury as stated above. Continue current caty atment plan. Continue disease factor modification. 3. Anemia. Continue to monitor hemoglobin and hematocrit levels. mineral bone disorder. Monitor c alcium and phosphorus levels. 4. Metabolic acidosis secondary to acute kidney injury and chronic kidney disease. Continue to sina tor. 5. Diabetes. Continue current insulin regimen. 6. Coronary artery disease, status post percutaneous coronary intervention. Continue medical manage ment. 7. Hypertension. Continue current blood pressure regimen. Discontinue IV fluids. Defer any SAMANTHA in hibitor or ARB at this time. Dictated By: GRAEME BRANDT DO NR/NTS Conf#: [id number] DID#: [id number] CC: SCOT MCKEON MD;*End*
[2018-07-24] MEDS ORDERED: TICA90TA PO (11:42)
--- NOTE | 2018-07-24 11:43 | PDOCDIS ---
Discharge Instructions DIAGNOSIS Discharge Diagnosis NSTEMI CONDITION [id number] Patient Condition: [id number] Stable FOLLOW UP/APPOINTMENTS Follow-up Plan Take your medications as prescribed Make an appointment to see Dr Benedict in clinic in 2-3 weeks BHARATH KING MD Jul 24, 2018 11:43
--- NOTE | 2018-07-24 12:38 | DS ---
Date/Time of Note Date/Time of Note DATE: 07/24/18 TIME: 12:36 Discharge Summary Admission/Discharge Info Admit Date/Time Jul 06, 2018 at 12:07 Discharge Date/Time Discharge Diagnosis NSTEMI Patient Condition: Stable Hospital Course 62 yo male with CKD IV, CAD who presented with NSTEMI. Underwent PCI and a stent was placed. He had evidence of multvessel disease and required repeat catheterization for staged PCI. However, he suffered ADITHYA and renal function need to be stablized prior to repeat procedure. Thus, he was given IV fluids and creatinine was monitored. When deemed stable, he underwent staged PCI. He was given brillinta Rx at discharge and advsied to follow up with Dr Benedict in clinic. 1. Acute kidney injury on CKD - Creatinine stable - Discussion with Nephrology regarding plan of care and will await Dr. Benedict's recommendations on timing for PCI. Patient is a high risk for further nephropathy and may require HD in the near future if renal function worsens after PCI. Discussed with patient and open to HD if needed - ADITHYA Secondary to contrast-associated nephropathy and given proteinuria has CKD component from diabetic nephropathy - Nephrology consultation appreciated. - will continue monitoring and avoid nephrotoxic agents 2. Non-ST elevated NC s/p PCI- stable - Remains asymptomatic. - Continue on DAPT - Cardiology on board and appreciate recommendations. Will need repeat PCI given stenosis of left circumflex stent prior to discharge - Patient underwent cardiac cath received stent x3 in the RCA 3. Anemia - continues to fluctuate but no active bleeding appreciate. Will continue to monitor given on Brilinta and aspirin 4. Diabetes mellitus - Insulin while in house 5. Hypertension - stable 6. JUAN JOSÉ - will need outpatient pulm follow up for sleep study - refusing CPAP 7. Disposition - Will await recommendations from Dr. Benedict regarding PCI timing. Renal function continues to improve but has been very slow progression - Continue all current treatment Home Meds Active Scripts Carvedilol* (Carvedilol*) 6.25 Mg Tablet, 6.25 MG PO BID for 60 Days, #120 TAB Prov:BHARATH KING MD 04/13/17 Reported Medications Insulin Glargine* (Lantus*) 100 Unit/Ml Soln, 30 UNIT SC DAILY, #1 VIAL 04/05/17 Aspirin (Low Dose Aspirin) 81 Mg Tablet., 81 MG PO DAILY, #30 TAB 04/05/17 Atorvastatin Calcium* (Atorvastatin Calcium*) 20 Mg Tablet, 20 MG PO QHS, #30 TAB 04/05/17 Amlodipine Besylate* (Amlodipine Besylate*) 10 Mg Tablet, 10 MG PO DAILY, #30 TAB 04/05/17 Follow-up Plan Take your medications as prescribed Make an appointment to see Dr Benedict in clinic in 2-3 weeks Primary Care Provider Joyce Schreiber MD Pending Labs Laboratory Tests Test 07/23/18 17:43 07/23/18 20:52 07/24/18 02:32 07/24/18 08:10 Bedside 108 191 118 Glucose mg/dL (70-220) mg/dL (70-220) mg/dL (70-220) White Blood 8.6 Count 10^3/ul (4.8-1 0.8) Red Blood 2.90 Count 10^6/ul (4.70- 6.10) Hemoglobin 8.2 g/dl (14.0-18. 0) Hematocrit 26.2 % (42.0-52.0) Mean 90.3 Corpuscular fl (82.0-101.0 Volume ) Mean 28.3 Corpuscular pg (29.0-33.0) Hemoglobin Mean 31.3 Corpuscular g/dl (32.0-37. Hemoglobin Conc 0) ent Red Cell 13.9 Distribution % (11.5-14.5) Width Platelet Count 326 10^3/UL (140-4 15) Mean Platelet 9.3 Volume fl (7.4-10.4) Immature 0.600 Granulocytes % % (0.001-0.429 ) Neutrophils % 74.1 % (39.0-77.0) Lymphocytes % 15.6 % (15.0-51.0) Monocytes % 7.0 % (0.0-11.0) Eosinophils % 2.2 % (0.0-7.0) Basophils % 0.5 % (0.0-2.0) Nucleated Red 0.0 Blood Cells % /100WBC (0.0-0 .0) Immature 0.050 Granulocytes # 10^3/ul (0.0-0 .031) Neutrophils # 6.4 10^3/ul (1.6-7 .5) Lymphocytes # 1.3 10^3/ul (0.8-2 .9) Monocytes # 0.6 10^3/ul (0.3-0 .9) Eosinophils # 0.2 10^3/ul (0.0-0 .5) Basophils # 0.0 10^3/ul (0.0-0 .1) Nucleated Red 0.0 Blood Cells # 10^3/ul (0.0-0 .0) Sodium Level 138 mmol/L (135-14 4) Potassium 4.5 Level mmol/L (3.5-5. 1) Chloride Level 111 mmol/L (97-110 ) Carbon Dioxide 20 Level mmol/L (21-31) Anion Gap 7 (5-13) Blood Urea 31 Nitrogen mg/dl (7-20) Creatinine 3.35 mg/dl (0.61-1. 24) Est Glomerular 19 Filtrat mL/min (>60) Rate mL/min Glucose Level 89 mg/dl (70-220) Calcium Level 8.7 mg/dl (8.4-10. 2) Phosphorus 4.4 Level mg/dl (2.5-4.9 ) Magnesium 1.9 Level mg/dl (1.7-2.5 ) Creatine 157 Kinase IU/L (23-200) Creatine Kinase 1.9 Index Creatinine 2.91 Kinase MB ng/ml (0.0-2.4 (Mass) ) Troponin I 0.488 ng/ml (0.000-0 .120) Test 07/24/18 08:11 07/24/18 08:22 07/24/18 11:48 Sodium Level 138 mmol/L (135-144 ) Potassium 4.4 Level mmol/L (3.5-5.1 ) Chloride Level 111 mmol/L (97-110) Carbon Dioxide 21 Level mmol/L (21-31) Anion Gap 6 (5-13) Blood Urea 31 mg/dl (7-20) Nitrogen Creatinine 3.33 mg/dl (0.61-1.2 4) Est Glomerular 19 mL/min (>60) Filtrat Rate mL/min Glucose Level 89 mg/dl (70-220) Calcium Level 8.6 mg/dl (8.4-10.2 ) Total 0.1 Bilirubin mg/dl (0.2-1.3) Direct 0.00 Bilirubin mg/dl (0.00-0.2 0) Indirect 0.1 Bilirubin mg/dl (0-1.1) Aspartate Amino 26 IU/L (15-46) Transf (AST/SGO T) Alanine 27 IU/L (13-69) Aminotransferas e (ALT/SGPT) Alkaline 83 Phosphatase IU/L (42-121) Total Protein 5.3 g/dl (6.1-8.1) Albumin 2.8 g/dl (3.3-4.9) Globulin 2.50 g/dl (1.3-3.2) Albumin/Globuli 1.12 n Ratio Bedside 100 171 Glucose mg/dL (70-220) mg/dL (70-220) BHARATH KING MD Jul 24, 2018 12:38
--- NOTE | 2018-07-24 14:26 | NUR ---
CM notes: CM called [facility] pharmacy spoke to the pharmacist who stated the patient already filled the Brillinta medication on 07/10/18 and is not due for a refill until 08/02/[address] CM relayed information to Dr. Cervantes and bedside nurse Mona, per patients Luisa Caldwell they have indeed filled meds on Jul 10, she will however check and confirm when she gets home, CM will f/u with patient and . Hannah Hunter RNCM
--- NOTE | 2018-07-24 15:09 | CONS ---
Consult Date/Type/Reason Admit Date/Time Jul 06, 2018 at 12:07 Initial Consult Date 07/06/18 Type of Consultation: cv Requesting Provider: SCOT MCKEON Date/Time of Note DATE: 07/24/18 TIME: 15:07 Subjective Interventional cardiology follow-up progress note Subjective: Discussed with the staff tele was reviewed. pt remains in NSR with no AV block d/w Patient with no chest pain or pressure now Patient with intermittent minimal nosebleed no groin pain Events noted: Status post PCI of the right coronary artery using 3 drug-eluting stent on July 10, 2018. 07/23/18: PCI LCX using 2 RAUL ( 20 cc contrast) Objective: General: Obese gentleman no acute distress HEENT: NC/AT. pupils are equal. round. NECK: no stridor. CV: RRR. systolic murmur; no gallop or rubs. PULM: no wheezing . Mild rhonchi . GI: SOFT, NT, ND, no rebound or guarding Extremity: trace B/L LE edema. no clubbing. neuro: awake and alert, OX3. Psych: calm and pleasant rectal: deferred : normal R fem: no bleeding or hematoma. EKG shows normal sinus rhythm. ST-T wave abnormalities suggestive of inferolateral ischemia Echocardiogram was reviewed which showed ejection fraction of 45% Objective Vitals Vital Signs Date Temp Pulse Resp B/P (MAP) Pulse Ox O2 O2 Flow FiO2 Time Delivery Rate 07/24/18 98 21 13:37 07/24/18 73 20 Nasal 13:36 Cannula 07/24/18 98.6 137/61 11:53 (86) Intake and Output 07/23/18 07/23/18 07/24/18 1515:00 23:00 07:00 IntakeIntake Total 100 ml 650 ml 200 ml BalanceBalance 100 ml 650 ml 200 ml Results/Medications Result Diagram: 07/24/18 0810 07/24/18 0811 Results 24 hrs Laboratory Tests Test 07/23/18 17:43 07/23/18 20:52 07/24/18 02:32 07/24/18 08:10 Bedside Glucose 108 191 118 White Blood Count 8.6 Red Blood Count 2.90 L Hemoglobin 8.2 L Hematocrit 26.2 L Mean Corpuscular 90.3 Volume Mean Corpuscular 28.3 L Hemoglobin Mean Corpuscular 31.3 L Hemoglobin Concent Red Cell 13.9 Distribution Width Platelet Count 326 Mean Platelet Volume 9.3 Immature 0.600 H Granulocytes % Neutrophils % 74.1 Lymphocytes % 15.6 Monocytes % 7.0 Eosinophils % 2.2 Basophils % 0.5 Nucleated Red Blood 0.0 Cells % Immature 0.050 H Granulocytes # Neutrophils # 6.4 Lymphocytes # 1.3 Monocytes # 0.6 Eosinophils # 0.2 Basophils # 0.0 Nucleated Red Blood 0.0 Cells # Sodium Level 138 Potassium Level 4.5 Chloride Level 111 H Carbon Dioxide Level 20 L Anion Gap 7 Blood Urea Nitrogen 31 H Creatinine 3.35 H Est Glomerular 19 L Filtrat Rate mL/min Glucose Level 89 Calcium Level 8.7 Phosphorus Level 4.4 Magnesium Level 1.9 Creatine Kinase 157 Creatine Kinase 1.9 Index Creatinine Kinase MB 2.91 H (Mass) Troponin I 0.488 *H Test 07/24/18 08:11 07/24/18 08:22 07/24/18 11:48 Sodium Level 138 Potassium Level 4.4 Chloride Level 111 H Carbon Dioxide Level 21 Anion Gap 6 Blood Urea Nitrogen 31 H Creatinine 3.33 H Est Glomerular 19 L Filtrat Rate mL/min Glucose Level 89 Calcium Level 8.6 Total Bilirubin 0.1 L Direct Bilirubin 0.00 Indirect Bilirubin 0.1 Aspartate Amino 26 Transf (AST/SGOT) Alanine 27 Aminotransferase (AL T/SGPT) Alkaline Phosphatase 83 Total Protein 5.3 L Albumin 2.8 L Globulin 2.50 Albumin/Globulin 1.12 Ratio Bedside Glucose 100 171 Home Meds Active Scripts Ticagrelor* (Brilinta*) 90 Mg Tablet, 90 MG PO BID for 90 Days, #180 TAB 3 Refills Prov:BHARATH KING MD 07/24/18 Carvedilol* (Carvedilol*) 6.25 Mg Tablet, 6.25 MG PO BID for 60 Days, #120 TAB Prov:BHARATH KING MD 04/13/17 Reported Medications Insulin Glargine* (Lantus*) 100 Unit/Ml Soln, 30 UNIT SC DAILY, #1 VIAL 04/05/17 Aspirin (Low Dose Aspirin) 81 Mg Tablet.dr, 81 MG PO DAILY, #30 TAB 04/05/17 Atorvastatin Calcium* (Atorvastatin Calcium*) 20 Mg Tablet, 20 MG PO QHS, #30 TAB 04/05/17 Amlodipine Besylate* (Amlodipine Besylate*) 10 Mg Tablet, 10 MG PO DAILY, #30 TAB 04/05/17 Medications Current Medications IV Flush (NS 3 ml) 3 ml PER PROTOCOL IV ; Start 07/06/18 at 13:00 Ondansetron HCl (Zofran Inj) 4 mg Q6H PRN IV NAUSEA/VOMITING Last administered on 07/10/18 16:48; Admin Dose 4 MG; Start 07/06/18 at 13:00 Aspirin (Aspirin) 81 mg DAILY PO Last administered on 07/24/18 08:29; Admin Dose 81 MG; Start 07/07/18 at 09:00 Nitroglycerin (Nitroglycerin (Sl Tab) 0.4 Mg) 1 tab Q5M PRN SL .CHEST PAIN; Start 07/06/18 at 13:00 Acetaminophen (Tylenol Tab) 650 mg Q6H PRN PO .PAIN 1-3 OR TEMP; Start 07/06/18 at 13:00 Acetaminophen/ Hydrocodone Bitart ([place] (5/325)) 1 tab Q6H PRN PO .PAIN 4-6 Last administered on 07/10/18 12:00; Admin Dose 1 TAB; Start 07/06/18 at 13:00 Famotidine (Pepcid) 20 mg DAILY PO Last administered on 07/24/18 08:28; Admin Dose 20 MG; Start 07/06/18 at 14:00 Insulin Glargine (Lantus) 19 units DAILY@2000 SC Last administered on 07/23/18 21:44; Admin Dose 19 UNITS; Start 07/06/18 at 20:00 Insulin Aspart (Novolog Insulin Pen) 5 unit WITH MEALS SC Last administered on 07/24/18 11:50; Admin Dose 5 UNIT; Start 07/06/18 at 18:00 Insulin Aspart (Novolog Insulin Pen) NOVOLOG *MILD* ALGORITHM WITH MEALS BEDTIME SC Last administered on 07/24/18 11:51; Admin Dose 1 UNIT; Start 07/06/18 at 18:00 Miscellaneous Information 1 ea NOTE XX ; Start 07/06/18 at 14:30 Glucose (Glutose) 15 gm Q15M PRN PO DECREASED GLUCOSE; Start 07/06/18 at 14:30 Glucose (Glutose) 22.5 gm Q15M PRN PO DECREASED GLUCOSE; Start 07/06/18 at 14:30 Dextrose (D50w Syringe) 25 ml Q15M PRN IV DECREASED GLUCOSE Last administered on 07/23/18at 06:40; Admin Dose 25 ML; Start 07/06/18 at 14:30 Dextrose (D50w Syringe) 50 ml Q15M PRN IV DECREASED GLUCOSE; Start 07/06/18 at 14:30 Glucagon (Glucagen) 1 mg Q15M PRN IM DECREASED GLUCOSE; Start 07/06/18 at 14:30 Glucose (Glutose) 15 gm Q15M PRN BUCCAL DECREASED GLUCOSE; Start 07/06/18 at 14:30 Labetalol HCl (Labetalol) 10 mg Q4 PRN IV sbp >160 Last administered on 07/09/18at 04:19; Admin Dose 10 MG; Start 07/06/18 at 15:00 Atorvastatin Calcium (Lipitor) 80 mg HS PO Last administered on 07/23/18at 21:35; Admin Dose 80 MG; Start 07/06/18 at 21:00 Isosorbide Dinitrate (Isordil) 20 mg TID PO Last administered on 07/24/18 12:10; Admin Dose 20 MG; Start 07/06/18 at 21:00 Hydralazine HCl (Apresoline) 50 mg TID PO Last administered on 07/24/18 12:10; Admin Dose 50 MG; Start 07/08/18 at 09:00 Morphine Sulfate (morphine) 6 mg Q4H PRN PO SEVERE PAIN LEVEL 7-10 Last administered on 07/10/18 16:48; Admin Dose 6 MG; Start 07/08/18 at 22:00 Acetylcysteine (Nac) 600 mg BID PO Last administered on 07/24/18 08:29; Admin Dose 600 MG; Start 07/09/18 at 09:00 Ticagrelor (Brilinta) 90 mg BID PO Last administered on 07/24/18 08:30; Admin Dose 90 MG; Start 07/10/18 at 09:00 Albuterol/ Ipratropium (Duoneb) 3 ml Q6H RESP THERAPY HHN Last administered on 07/24/18at 13:33; Admin Dose 3 ML; Start 07/12/18 at 16:30 Albuterol/ Ipratropium (Duoneb) 3 ml Q6H RESP THERAPY PRN HHN wheezing; Start 07/12/18 at 16:30 Ranolazine (Ranexa) 500 mg Q12 PO Last administered on 07/24/18 08:28; Admin Dose 500 MG; Start 07/12/18 at 21:00 Sodium Chloride ([place]) 2 spray Q4HWA PRN NASAL congestion Last administered on 07/16/18 05:19; Admin Dose 2 SPRAY; Start 07/15/18 at 18:00 Senna/Docusate Sodium (Senokot-S) 1 tab BID PO Last administered on 07/23/18 21:46; Admin Dose 1 TAB; Start 07/20/18 at 11:00 Amlodipine Besylate (Norvasc) 5 mg DAILY PO Last administered on 07/24/18 08:31; Admin Dose 5 MG; Start 07/23/18 at 09:00 Carvedilol (Coreg) 6.25 mg BID PO Last administered on 07/24/18 08:31; Admin Dose 6.25 MG; Start 07/22/18 at 21:00 Sodium Chloride 1,000 ml @ 50 mls/hr Q20H IV Last administered on 07/23/18 20:00; Admin Dose 50 MLS/HR; Start 07/23/18 at 00:00 Assessment/Plan Hospital Course (Demo Recall) 1. Non-ST elevation myocardial infarction: s/p PCI RCA and LCX 2. Coronary artery disease with history of previous MIs 3. History of PCI 4. Hypertension 5. Diabetes 6. Congestive heart failure class IV on arrival 7. Dyslipidemia 8. Active smoker and possibly COPD 9. Renal failure acute on chronic: ATN 10. Episode of 2-1 AV block so far asymptomatic: resolved now Recommendations: Aspirin and Brilinta will be continued cont carvedilol to 6.25 p.o. twice daily and continue hydralazine to his regimen. norvasc 5 mg only to avoid hypotension Nitroglycerin to be continued as well Continue with statins cont Ranexa Off of any SMAANTHA inhibitor or ARB due to his renal insufficiency Have given patient a prescription for Brilinta about a week ago when asking her to filling the prescription. Patient is still has not filling the prescription. She is going to get it filled today. Importance of compliant with her medications specifically aspirin and Brilinta multiple times emphasized to the patient and . Thank you for his referral. 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
[2018-07-24] MEDS: SOD CHLORIDE 0.9% 1,000 ML IV SCH (16:00)
--- NOTE | 2018-07-24 17:22 | NUR ---
Nurse Notes D/c held for now, Dr. Cervantes aware. 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 S/W case management Herbert regarding this, per Herbert the Pt received his brilinta medication at bed side on 07/10/2018 and should have it with him or his . Per , she cannot find it and may have been misplaced. Brilinta medication refill is not due till 08/02/2018. Dr. Cervantes was made aware and held d/c. Dr. Benedict was paged, got a call back from [facility] and was notified that MD is currently on a procedure right now and message was relayed. Pt and was informed. Per she will go home and try to look for it. Charge nurse aware Addendum: 07/24/18 at 1851 by SCOTT ALEJO RN , Luisa called and stated that she found Pt's brilinta medication at home. Paged Dr. Cervantes and made aware. Per , ok for Pt to be d/c'd. Will endorse to next shift. Waiting for to picking belt operator Pt.
--- NOTE | 2018-07-24 18:06 | NUR ---
EOSS Pt ao x 4 and stable at this time. Pt in no distress noted throughout the shift. No bleeding or hematoma noted on Pt's right groin site. Pt ambulated x 2 around nursing station and tolerated well. Discharge on hold per Dr. Cervantes. Charge nurse aware. Hourly rounding provided. Call light within reach. Will endorse to next shift accordingly Addendum: 07/24/18 at 1851 by SCOTT ALEJO RN , Luisa called and stated that she found Pt's brilinta medication at home. Paged Dr. Cervantes and made aware. Per , ok for Pt to be d/c'd. Will endorse to next shift. 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 Charge nurse aware
--- NOTE | 2018-07-24 19:23 | NUR ---
Discharge Pt aox 4 and stable for discharge to home. Pt's at bedside. Pt brought Pt's brilinta medication for verification. Discharge packet given to Pt. New prescription transcribed to Pt's own pharmacy. Education provided and all question answered. All needs met. Education also provided regarding s/p coronary angiogram, Pt and stated understanding. Resources provided for Pt. prompt care rn d/c'd. IV d/c'd. Pt escorted via wheelchair d/c to home. MD (Dr. Benedict and Dr. Cervantes) cleared Pt for d/c. Pt's brilinta medication with Pt's . All belongings (1 pair of shoes, 1 set of clothes, 1 glasses, and 1 cellphone) returned to Pt.
== END 2018-07-24 19:30 | disposition home or self-care (01) | DRG 246 ==
LOC: E/R 08:20 → 6WM 12:07 → ICU 07-10 11:36 → 6WM 07-10 22:22 → TEL 07-23 08:30
PROVIDERS: ADMIT Internal Medicine; ATTEND Internal Medicine
PROC: 4A023N7 Measurement of Cardiac Sampling and Pressure, Left Heart, Percutaneous Approach (ICD-10-PCS; 2018-07-10)
PROC: B211YZZ Fluoroscopy of Multiple Coronary Arteries using Other Contrast (ICD-10-PCS; 2018-07-10)
PROC: 027036Z Dilation of Coronary Artery, One Artery with Three Drug-eluting Intraluminal Devices, Percutaneous Approach (ICD-10-PCS; principal; 2018-07-10 07:30)
PROC: 027035Z Dilation of Coronary Artery, One Artery with Two Drug-eluting Intraluminal Devices, Percutaneous Approach (ICD-10-PCS; 2018-07-23)
PROC: 4A023N7 Measurement of Cardiac Sampling and Pressure, Left Heart, Percutaneous Approach (ICD-10-PCS; 2018-07-23)
DX: I21.4 Non-ST elevation (NSTEMI) myocardial infarction (principal); I50.43 Acute on chronic combined systolic (congestive) and diastolic (congestive) heart failure; N17.0 Acute kidney failure with tubular necrosis; I13.0 Hypertensive heart and chronic kidney disease with heart failure and stage 1 through stage 4 chronic kidney disease, or unspecified chronic kidney disease; E87.2 Acidosis; N18.4 Chronic kidney disease, stage 4 (severe); F17.200 Nicotine dependence, unspecified, uncomplicated; E11.22 Type 2 diabetes mellitus with diabetic chronic kidney disease; D63.1 Anemia in chronic kidney disease; I25.10 Atherosclerotic heart disease of native coronary artery without angina pectoris; Z95.5 Presence of coronary angioplasty implant and graft; J44.9 Chronic obstructive pulmonary disease, unspecified; E11.21 Type 2 diabetes mellitus with diabetic nephropathy; I25.2 Old myocardial infarction; E78.5 Hyperlipidemia, unspecified; E83.89 Other disorders of mineral metabolism; G47.33 Obstructive sleep apnea (adult) (pediatric); F41.9 Anxiety disorder, unspecified
CPT/HCPCS: 36415; 71045; 76775; 80048; 80053; 80061; 80069; 81001; 81003; 82043; 82550; 82553; 82595; 82962; 83036; 83540; 83735; 83880; 84100; 84155; 84300; 84443; 84484; 85014; 85018; 85025; 85045; 85610; 85730; 86021; 86038; 86160; 86226; 86430; 86704; 86709; 86803; 87081; 87340; 90686; 93005; 93306; 93458; 94640; 94660; 94664; 96372; 96374; C1725; C1760; C1874; C1887; C1894; C9600; J0461; J0583; J1644; J1650; J1815; J1940; J2250; J2405; J3010; J7030; J7040; Q4081; Q9967

== ENCOUNTER 2018-10-05 17:35 | Inpatient (IN) | payer OTHER ==
[~2018-10-05] VITALS: Ht 165.1 cm; Wt 90.6 kg
[~2018-10-05 17:35] MED LIST changes: -GEMF600T8 PO; -METF100010 PO; -OMEG1CAP2 PO
[2018-10-05] MEDS ORDERED: ASPIRIN 325 MG TAB PO ONE (22:00)
[2018-10-05] MEDS: INSULIN GLARGINE [LANTus] (100 UNITS/ML) SYG SC SCH (22:00)
[2018-10-05] MEDS ORDERED: ACETAMINOPHEN 325 MG TAB PO PRN ×2 (22:00→22:30)
[2018-10-05] MEDS ORDERED: ONDANSETRON 4 MG INJ IV PRN (22:00)
[2018-10-05] MEDS ORDERED: GLUCOSE GEL 15 GRAM TUBE PO PRN ×2 (22:30)
[2018-10-05] MEDS ORDERED: BISACODYL (EC) 5 MG TAB PO PRN (22:30)
[2018-10-05] MEDS ORDERED: NACL 0.9% 3 ML SYG IV SCH (22:30)
[2018-10-05] MEDS ORDERED: GLUCOSE GEL 15 GRAM TUBE BUCCAL PRN (22:30)
[2018-10-05] MEDS ORDERED: DEXTROSE 50% 50 ML SYRINGE IV PRN ×2 (22:30)
[2018-10-05] MEDS ORDERED: GLUCAGON 1 MG INJ IM PRN (22:30)
[2018-10-05] MEDS ORDERED: ONDANSETRON 4 MG TAB PO PRN (22:30)
[2018-10-05] MEDS ORDERED: DOCUSATE SODIUM 100 MG CAP PO PRN (22:30)
[2018-10-05] MEDS ORDERED: AMLODIPINE 5 MG TAB PO SCH (22:30)
--- NOTE | 2018-10-05 22:34 | ERD ---
ER Documentation Chief Complaint Chief Complaint numbness Rt face & arm x yesterday morning, left shoulder & knee pain today HPI Patient is a 62-year-old male with coronary disease, hypertension, and diabetes who presents saying "I think I had a stroke". He said that his right face feels asleep and that his right arm are weak and feel numb. The symptoms started yesterday morning and have been constant. Today he also had right leg pain and upper back pain. Upon review of old medical records this is the patient's third visit to the ER since 2017. His primary doctor is Dr. Barton. ROS All systems reviewed and are negative except as per history of present illness. Medications Home Meds Active Scripts Ticagrelor* (Brilinta*) 90 Mg Tablet, 90 MG PO BID for 90 Days, #180 TAB 3 Refills Prov:BHARATH KING MD 07/24/18 Carvedilol* (Carvedilol*) 6.25 Mg Tablet, 6.25 MG PO BID for 60 Days, #120 TAB Prov:BHARATH KING MD 04/13/17 Reported Medications Insulin Glargine* (Lantus*) 100 Unit/Ml Soln, 30 UNIT SC DAILY, #1 VIAL 04/05/17 Aspirin (Low Dose Aspirin) 81 Mg Tablet.dr, 81 MG PO DAILY, #30 TAB 04/05/17 Atorvastatin Calcium* (Atorvastatin Calcium*) 20 Mg Tablet, 20 MG PO QHS, #30 TAB 04/05/17 Amlodipine Besylate* (Amlodipine Besylate*) 10 Mg Tablet, 10 MG PO DAILY, #30 TAB 04/05/17 Allergies Allergies: Coded Allergies: No Known Allergy (Unverified , 07/06/18) PMhx/Soc History of Surgery: No Anesthesia Reaction: No Hx Neurological Disorder: No Hx Respiratory Disorders: No Hx Cardiac Disorders: Yes (htn/high cholesterol/stents) Hx Psychiatric Problems: No Hx Miscellaneous Medical Probl: Yes (possible stroke) Hx Alcohol Use: Yes Hx Substance Use: No Hx Tobacco Use: Yes Smoking Status: Current every day smoker FmHx Family History: No diabetes Physical Exam Vitals Vital Signs Date Temp Pulse Resp B/P (MAP) Pulse Ox O2 O2 Flow FiO2 Time Delivery Rate 10/05/18 98.5 64 18 191/90 99 17:59 (123) Physical Exam Const: No acute distress Head: Atraumatic Eyes: Normal Conjunctiva ENT: Normal External Ears, Nose and Mouth. Neck: Full range of motion. No meningismus. Resp: Clear to auscultation bilaterally Cardio: Regular rate and rhythm, no murmurs Abd: Soft, non tender, non distended. Normal bowel sounds Skin: No petechiae or rashes Back: No midline or flank tenderness Ext: No cyanosis, or edema Neur: Awake and alert, cranial nerves II through XII are intact, sensation decreased over the right face, right arm, and right leg, dye can operator strength equal bilaterally, no pronator drift Psych: Normal Mood and Affect Result Diagram: 10/05/18205310/05/182053 Results 24 hrs Laboratory Tests Test 10/05/18 20:52 10/05/18 20:54 10/05/18 22:35 Bedside Glucose 144 mg/dL 133 mg/dL White Blood Count 8.7 10^3/ul Red Blood Count 3.45 10^6/ul Hemoglobin 9.5 g/dl Hematocrit 29.9 % Mean Corpuscular Volume 86.7 fl Mean Corpuscular Hemoglobin 27.5 pg Mean Corpuscular 31.8 g/dl Hemoglobin Concent Red Cell Distribution Width 13.8 % Platelet Count 224 10^3/UL Mean Platelet Volume 10.1 fl Immature Granulocytes % 0.300 % Neutrophils % 63.7 % Lymphocytes % 24.7 % Monocytes % 7.6 % Eosinophils % 3.2 % Basophils % 0.5 % Nucleated Red Blood Cells % 0.0 /100WBC Immature Granulocytes # 0.030 10^3/ul Neutrophils # 5.5 10^3/ul Lymphocytes # 2.1 10^3/ul Monocytes # 0.7 10^3/ul Eosinophils # 0.3 10^3/ul Basophils # 0.0 10^3/ul Nucleated Red Blood Cells # 0.0 10^3/ul Prothrombin Time 12.4 Sec Prothrombin Time Ratio 1.0 INR International 0.91 Normalized Ratio Activated Partial Thromboplast 26.6 Sec Time Urine Color YELLOW Urine Clarity CLEAR Urine pH 6.0 Urine Specific [place] 1.016 Urine Ketones NEGATIVE mg/dL Urine Nitrite NEGATIVE mg/dL Urine Bilirubin NEGATIVE mg/dL Urine Urobilinogen NEGATIVE mg/dL Urine Leukocyte Esterase NEGATIVE Enrique/ul Urine Microscopic RBC 1 /HPF Urine Microscopic WBC 1 /HPF Urine Hemoglobin 1+ mg/dL Urine Glucose 2+ mg/dL Urine Total Protein 3+ mg/dl Sodium Level 144 mmol/L Potassium Level 4.0 mmol/L Chloride Level 114 mmol/L Carbon Dioxide Level 22 mmol/L Anion Gap 8 Blood Urea Nitrogen 50 mg/dl Creatinine 3.37 mg/dl Est Glomerular Filtrat 19 mL/min Rate mL/min Glucose Level 136 mg/dl Hemoglobin A1c 7.6 % Calcium Level 8.6 mg/dl Troponin I 0.028 ng/ml Triglycerides Level 283 mg/dl Cholesterol Level 149 mg/dl LDL Cholesterol, Calculated 60 mg/dl HDL Cholesterol 32 mg/dl Cholesterol/HDL Ratio 4.6 RATIO Urine Opiates Screen NEGATIVE Urine Barbiturates NEGATIVE Urine Amphetamines Screen NEGATIVE Urine Benzodiazepines Screen NEGATIVE Urine Cocaine Screen NEGATIVE Urine Cannabinoids NEGATIVE Current Medications Medications Dose Sig/Jordi Start Time Status Last (Trade) Ordered Route PRN Stop Time Admin Dose Reason Admin Aspirin 325 mg ONCE ONCE 10/05/18 DC (Aspirin) PO 22:00 10/05/18 22:01 Ondansetron 4 mg ER BRIDGE 10/05/18 HCl (Zofran PRN IV 22:00 Inj) NAUSEA/VOMITI 10/06/18 21:59 NG 650 mg ER BRIDGE 10/05/18 Acetaminophen PRN PO 22:00 (Tylenol .MILD PAIN 10/06/18 21:59 Tab) 1-3 OR TEMP Amlodipine 10 mg DAILY PO 10/06/18 DC Besylate 09:00 (Norvasc) 10/06/18 09:00 Aspirin 81 mg DAILY PO 10/06/18 (Halfprin) 09:00 20 mg QHS PO 10/06/18 Atorvastatin 21:00 Calcium (Lipitor) Carvedilol 6.25 mg BID PO 10/05/18 (Coreg) 22:00 Insulin 30 units DAILY SC 10/05/18 Glargine 22:00 (Lantus) Ticagrelor 90 mg BID PO 10/06/18 (Brilinta) 09:00 IV Flush 3 ml PER 10/05/18 (NS 3 ml) PROTOCOL IV 22:30 Ondansetron 4 mg Q6H PRN 10/05/18 HCl (Zofran PO 22:30 Tab) NAUSEA/VOMITI NG 650 mg Q6H PRN 10/05/18 Acetaminophen PO .PAIN 1-3 22:30 (Tylenol OR TEMP Tab) Docusate 100 mg Q12H PRN 10/05/18 Sodium PO 22:30 (Colace) .CONSTIPATION Bisacodyl 5 mg DAILY PRN 10/05/18 (Dulcolax) PO 22:30 .CONSTIPATION 1 ea NOTE XX 10/05/18 Miscellaneous 22:30 Information Glucose 15 gm Q15M PRN 10/05/18 (Glutose) PO DECREASED 22:30 GLUCOSE Glucose 22.5 gm Q15M PRN 10/05/18 (Glutose) PO DECREASED 22:30 GLUCOSE Dextrose 25 ml Q15M PRN 10/05/18 (D50w IV DECREASED 22:30 Syringe) GLUCOSE Dextrose 50 ml Q15M PRN 10/05/18 (D50w IV DECREASED 22:30 Syringe) GLUCOSE Glucagon 1 mg Q15M PRN 10/05/18 (Glucagen) IM DECREASED 22:30 GLUCOSE Glucose 15 gm Q15M PRN 10/05/18 (Glutose) BUCCAL 22:30 DECREASED GLUCOSE Amlodipine 5 mg DAILY PO 10/05/18 Besylate 22:30 (Norvasc) Hydralazine 10 mg Q4H PRN 10/05/18 HCl IV ELEVATED 22:30 (Apresoline) BLOOD PRESSURE Procedures/MDM CT brain read by radiology. Chest x-ray read by radiology. EKG read by me: Rate/Rhythm: Regular rate and rhythm at a normal rate Intervals: Normal Impression: No evidence of ischemia or arrhythmia Patient is a 62-year-old male with coronary disease, hypertension, and diabetes who presents with right-sided facial numbness and right arm and right leg numbness and weakness. I am concerned for possible stroke. The patient is outside window for TPA or mechanical retrieval as the patient's symptoms started yesterday morning more than 24 hours previously. The patient will be given aspirin after he passes a swallow evaluation and NIH stroke scale was done by nursing. Departure Diagnosis: Primary Impression: Numbness Additional Impressions: Stroke CVA mechanism: unspecified Qualified Codes: I63.9 - Cerebral infarction, unspecified Chronic renal failure Chronic kidney disease stage: unspecified stage Qualified Codes: N18.9 - Chronic kidney disease, unspecified Condition: ELVIS Recio MD Oct 05, 2018 22:34
[2018-10-05] MEDS ORDERED: LANT3I SC (23:31)
--- NOTE | 2018-10-05 23:48 | HP ---
Date/Time of Note Date/Time of Note DATE: 10/05/18 TIME: 23:47 Assessment/Plan VTE Prophylaxis SCD applied (from Nsg): Yes Pharmacological prophylaxis: NA/contraindicated Pharm contraindication: low risk/ambulating Lines/Catheters IV Catheter Type (from Nrsg): Saline Lock Assessment/Plan Hospital Course This is a 62-year-old male being admitted to the telemetry floor for observation for: #1 suspect acute CVA: CT scan does not show any acute abnormalities, there are signs of old infarct. Patient continues to have right-sided numbness. Strength in bilateral extremities remains equal. Given that his symptoms have been persistent greater than 24 hours will treat at the current time for possible suspected stroke. We will check an MRI of the brain and MRA of the head and neck. As it has been greater than 24 hours will control the patient's blood pressures. We will restart the patient on amlodipine and resume carvedilol. PRN hydralazine. PT OT evaluation. Continue statin, likely increased dose if patient definitively is found to have stroke. Will obtain an echocardiogram w ith bubble study. Consult neurology #2 coronary artery disease: Patient is status post left heart catheterization. Previous echocardiogram showed ejection fraction of approximately 45% with stage II diastolic dysfunction. Continue aspirin and Brilinta, statin, beta-thomas. #3 diabetes mellitus: We will check hemoglobin A1c insulin sliding scale #4 chronic anemia: Stable #5 chronic kidney disease: Creatinine appears to be stable at the current time. Avoid NSAIDs, avoid nephrotoxic agents. Hold off on any SAMANTHA/ARB at the current time. #6 hyperlipidemia: Continue statin, adjust as indicated #7 JUAN JOSÉ: Confirm with patient whether he is on CPAP #8 DVT GI prophylaxis: SCDs, no GI prophylaxis indicated Further treatment strategy will be implemented as per the clinical course Result Diagram: 10/05/18205310/05/182053 Results 24hrs Laboratory Tests Test 10/05/18 20:52 10/05/18 20:54 10/05/18 22:35 Bedside Glucose 144 133 White Blood Count 8.7 Red Blood Count 3.45 L Hemoglobin 9.5 L Hematocrit 29.9 L Mean Corpuscular Volume 86.7 Mean Corpuscular Hemoglobin 27.5 L Mean Corpuscular Hemoglobin Concent 31.8 L Red Cell Distribution Width 13.8 Platelet Count 224 # Mean Platelet Volume 10.1 Immature Granulocytes % 0.300 Neutrophils % 63.7 Lymphocytes % 24.7 Monocytes % 7.6 Eosinophils % 3.2 Basophils % 0.5 Nucleated Red Blood Cells % 0.0 Immature Granulocytes # 0.030 Neutrophils # 5.5 Lymphocytes # 2.1 Monocytes # 0.7 Eosinophils # 0.3 Basophils # 0.0 Nucleated Red Blood Cells # 0.0 Prothrombin Time 12.4 Prothrombin Time Ratio 1.0 INR International Normalized Ratio 0.91 Activated Partial Thromboplast Time 26.6 Urine Color YELLOW Urine Clarity CLEAR Urine pH 6.0 Urine Specific [place] 1.016 Urine Ketones NEGATIVE Urine Nitrite NEGATIVE Urine Bilirubin NEGATIVE Urine Urobilinogen NEGATIVE Urine Leukocyte Esterase NEGATIVE Urine Microscopic RBC 1 Urine Microscopic WBC 1 Urine Hemoglobin 1+ H Urine Glucose 2+ H Urine Total Protein 3+ H Sodium Level 144 Potassium Level 4.0 Chloride Level 114 H Carbon Dioxide Level 22 Anion Gap 8 Blood Urea Nitrogen 50 H Creatinine 3.37 H Est Glomerular Filtrat Rate mL/min 19 L Glucose Level 136 Hemoglobin A1c 7.6 H Calcium Level 8.6 Troponin I 0.028 Triglycerides Level 283 H Cholesterol Level 149 LDL Cholesterol, Calculated 60 HDL Cholesterol 32 Cholesterol/HDL Ratio 4.6 Urine Opiates Screen NEGATIVE Urine Barbiturates NEGATIVE Urine Amphetamines Screen NEGATIVE Urine Benzodiazepines Screen NEGATIVE Urine Cocaine Screen NEGATIVE Urine Cannabinoids NEGATIVE HPI/ROS Admit Date/Time Admit Date/Time Hx of Present Illness Chief complaint: Right-sided facial, upper and lower extremity numbness This is a 62-year-old male with coronary disease, hypertension, and diabetes who presents saying "I think I had a stroke". He said that his right face feels asleep and that his right arm are weak and feel numb. The symptoms started yesterday morning and have been constant. Today he also had right leg pain and upper back pain. Patient reports that he does not feel any weakness in his right upper or lower extremity. Denies any slurred speech. He does report his blood pressure has been elevated. He states the right now he has not been on amlodipine as he did not get any refills from his primary care doctor. He denies any chest pain or palpitations. Denies any recent use of smoking or illicit drug use or alcohol. Allergies: NKDA Medications: See RAMAN ROS Const: As per HPI Eyes : No pain discharge or redness or change in visual acuity ENT: No pain, sore throat, congestion, congestion, dysphagia or discharge Respiratory: No shortness of breath, cough, sputum, wheezing, or pleuritic pain Cardiovascular: No chest pain, palpitation, PND, or edema GI : no change in appetite, abdominal pain, nausea, vomiting, diarrhea, constipation, or change in the color his stool Genitourinary: No dysuria, hematuria, flank pain , discharge or CVA tenderness Musculoskeletal: No joint pain, back pain, neck pain, restricted range of motion in neck or joints Skin: No rash, bruising or hives Neuro: As per HPI Endocrine: No polyuria, polydipsia, temperature intolerance Psych: No hallucination, depression, anxiety or suicidal ideation PMH/Family/Social Past Medical History Coronary artery disease status post stents, diabetes mellitus, hyperlipidemia, hypertension, JUAN JOSÉ, anemia Medications Current Medications Ondansetron HCl (Zofran Inj) 4 mg ER BRIDGE PRN IV NAUSEA/VOMITING; Start 10/05/18 at 22:00; Stop 10/06/18 at 21:59 Acetaminophen (Tylenol Tab) 650 mg ER BRIDGE PRN PO .MILD PAIN 1-3 OR TEMP; Start 10/05/18 at 22:00; Stop 10/06/18 at 21:59 Aspirin (Halfprin) 81 mg DAILY PO ; Start 10/06/18 at 09:00 Atorvastatin Calcium (Lipitor) 20 mg QHS PO ; Start 10/06/18 at 21:00 Carvedilol (Coreg) 6.25 mg BID PO Last administered on 10/05/18at 22:53; Admin Dose 6.25 MG; Start 10/05/18 at 22:00 Insulin Glargine (Lantus) 30 units DAILY SC ; Start 10/05/18 at 22:00 Ticagrelor (Brilinta) 90 mg BID PO ; Start 10/06/18 at 09:00 IV Flush (NS 3 ml) 3 ml PER PROTOCOL IV ; Start 10/05/18 at 22:30 Ondansetron HCl (Zofran Tab) 4 mg Q6H PRN PO NAUSEA/VOMITING; Start 10/05/18 at 22:30 Acetaminophen (Tylenol Tab) 650 mg Q6H PRN PO .PAIN 1-3 OR TEMP; Start 10/05/18 at 22:30 Docusate Sodium (Colace) 100 mg Q12H PRN PO .CONSTIPATION; Start 10/05/18 at 22:30 Bisacodyl (Dulcolax) 5 mg DAILY PRN PO .CONSTIPATION; Start 10/05/18 at 22:30 Miscellaneous Information 1 ea NOTE XX ; Start 10/05/18 at 22:30 Glucose (Glutose) 15 gm Q15M PRN PO DECREASED GLUCOSE; Start 10/05/18 at 22:30 Glucose (Glutose) 22.5 gm Q15M PRN PO DECREASED GLUCOSE; Start 10/05/18 at 22:30 Dextrose (D50w Syringe) 25 ml Q15M PRN IV DECREASED GLUCOSE; Start 10/05/18 at 22:30 Dextrose (D50w Syringe) 50 ml Q15M PRN IV DECREASED GLUCOSE; Start 10/05/18 at 22:30 Glucagon (Glucagen) 1 mg Q15M PRN IM DECREASED GLUCOSE; Start 10/05/18 at 22:30 Glucose (Glutose) 15 gm Q15M PRN BUCCAL DECREASED GLUCOSE; Start 10/05/18 at 22:30 Amlodipine Besylate (Norvasc) 5 mg DAILY PO Last administered on 10/05/18at 22:53; Admin Dose 5 MG; Start 10/05/18 at 22:30 Hydralazine HCl (Apresoline) 10 mg Q4H PRN IV ELEVATED BLOOD PRESSURE; Start 10/05/18 at 22:30 Coded Allergies: No Known Allergy (Unverified , 10/05/18) Past Surgical History Left heart catheterization status post stents x3 Family History Significant Family History: no pertinent family hx Social History Alcohol Use: none Smoking Status: Former smoker Drug Use: none Exam/Review of Systems Vital Signs Vitals Vital Signs Date Temp Pulse Resp B/P (MAP) Pulse Ox O2 O2 Flow FiO2 Time Delivery Rate 10/05/18 74 19 192/87 100 Room Air 22:56 (122) 10/05/18 98.5 17:59 Exam Exam General: Patient is a pleasant male currently lying in bed in no acute distress HEENT: Atraumatic, normocephalic. The pupils are equal, round and reactive. Extraocular motor are intact Neck: Supple with full range of motion. No rigidity or meningismus Chest: Nontender Lungs: Clear to auscultation bilaterally no crackles rales or wheezing Heart: Normal S1-S2, Regular rhythm and rate. No murmur, S3, or S4 Abdomen: Obese, soft , nontender, nondistended , bowel sounds are present. No guarding no rebound tenderness , No masses or organomegaly. No costovertebral temporal angle mass Extremities: Normal to inspection, no edema no cyanosis Neurologic: Normal mental status, speech normal, cranial nerves II through XII are intact, motor and sensory are intact, no focal weakness, does report subjective numbness in the right upper and lower extremity. Additional Comments PROCEDURE: CT Brain without contrast. CLINICAL INDICATION: Possible stroke, headache TECHNIQUE: A CT of the brain was performed utilizing axial imaging from the skull base through the vertex without IV contrast. Multiplanar reformatted images were made. Images were reviewed on a PACS workstation. The CTDIvol is 37.13 mGy and the DLP is 634.23 mGycm. One or more the following dose reduction techniques were utilized: Automated exposure control, adjustment of the mA and / or kV according to patient's size, or use of iterative reconstruction technique. DICOM images are available. COMPARISON: None. FINDINGS: There is no intracranial hemorrhage, mass effect, or midline shift. No extra- axial fluid collection is seen. Mild atrophy is identified with compensatory ventricular and sulcal enlargement. Mild decreased attenuation is seen in the periventricular and deep white matter, compatible with microvascular ischemic disease. Multiple chronic appearing lacunar infarcts in left thalamus. The walton white matter differentiation is well preserved with no acute infarct detected. The osseous structures and visualized paranasal sinuses are unremarkable. Arterial calcification. IMPRESSION: 1. No definite evidence of acute intracranial pathology. 2. Mild diffuse atrophy. 3. There is mild microvascular ischemic disease in the periventricular and deep white matter. 4. Multiple chronic appearing lacunar infarcts in left thalamus. RPTAT: HJES .Daron Gao MD, MD Date Time Electronically viewed and signed by .Daron Gao MD, MD on 10/05/2018 21:32 .S/ CC: ELVIS BARRAZA MD [id number] PROCEDURE: XR Chest. CLINICAL INDICATION: Shortness of breath. TECHNIQUE: Single frontal chest x-ray. COMPARISON: 07/12/2018 FINDINGS: Heart is enlarged. There are atherosclerotic calcifications of the aortic knob.. There is no congestive heart failure.. Minimal plate-like atelectasis or sc arring at the left lung base.. There is no pleural effusion. There is no pneumothorax. The osseous structures are unremarkable. IMPRESSION: Cardiomegaly. No CHF or infiltrate. Minimal plate-like atelectasis versus scarring at the left lung base. RPTAT: HMVK .Zacarias Schmidt MD, MD Date Time Electronically viewed and signed by .Zacarias Schmidt MD, MD on 10/05/2018 20:56 .K/ CC: ELVIS BARRAZA MD [id number] EKG read by me: Rate/Rhythm: Regular rate and rhythm at a normal rate Intervals: Normal Impression: No evidence of ischemia or arrhythmia KEN GOVEA Oct 05, 2018 23:48
[2018-10-06] VITALS (11 sets, daily range): BP systolic 161–188; BP diastolic 65–89; PULSE 57–70; RESP 20; Ht 165.1 cm; Wt 90.6 kg
[2018-10-06] MEDS ORDERED: INSULIN ASPART [NOVOLOG] 3 ML PEN SC SCH (07:55)
[2018-10-06] MEDS: INSULIN GLARGINE [LANTus] (100 UNITS/ML) SYG SC SCH (08:33)
[2018-10-06] MEDS: INSULIN ASPART [NOVOLOG] 3 ML PEN SC SCH ×4 (08:33→22:02)
[2018-10-06] MEDS: ASPIRIN (EC) 81 MG TAB PO SCH (08:34)
[2018-10-06] MEDS: TICAGRELOR 90 MG TABLET PO SCH ×2 (08:34→22:02)
[2018-10-06] MEDS: AMLODIPINE 10 MG TAB PO SCH (08:35)
[2018-10-06] MEDS ORDERED: MAGNESIUM SULFATE 2 GM/50 ML 50 ML IVPB ONE (09:00)
[2018-10-06] MEDS ORDERED: AMLODIPINE 10 MG TAB PO SCH (09:00)
--- NOTE | 2018-10-06 09:59 | CONS ---
DATE OF ADMISSION: 10/05/2018 DATE OF CONSULTATION: 10/06/2018 TYPE OF CONSULTATION: Nephrology. REASON FOR CONSULTATION: Acute kidney injury, chronic kidney disease. HISTORY OF PRESENT ILLNESS: This is a 62-year-old male with a past medical history of CKD stage IV w ith a baseline creatinine of around 3 mg/dL, history of hypertension, history of anemia, history of m ineral bone disorder, history of coronary artery disease, history of diabetes, who presents to [facility] with complaints of right-sided weakness. The patient states he suddenly start ed having numbness and weakness on his right face and right upper extremity. As a result, he came in to the Emergency Room. Upon arrival, patient had a CT scan which showed no acute abnormalities. The patient had signs of old infarct. Patient, however, was subsequently admitted to telemetry for eval uation and monitoring. In terms of patient's renal history, the patient has underlying chronic kidney disease secondary to l ongstanding diabetes, hypertension. The patient has a baseline EGFR around 18 to 20 mL per minute wi th a creatinine around 3 mg/dL. The patient is followed by field cashier in outpatient setting. The patient denies any hemoptysis, hematemesis or hematochezia. PAST MEDICAL HISTORY: As stated above, history of chronic kidney disease, history of coronary artery disease, history of diabetes, history of anemia, history of dyslipidemia, history of obstructive sle ep apnea. FAMILY HISTORY: No family history of kidney disease. SOCIAL HISTORY: Does not drink, smoke or do drugs. MEDICATIONS: The patient's medications have been reviewed. ALLERGIES: Have been reviewed. REVIEW OF SYSTEMS: A 14-point review of systems was conducted. Pertinent positives stated in HPI, o therwise negative. PHYSICAL EXAMINATION: VITAL SIGNS: Blood pressure is 162/79, respirations 20, pulse 63, temperature 97.8. HEENT: Head is normocephalic. NECK: Supple. HEART: Regular rate. LUNGS: Show diminished breath sounds at the base. ABDOMEN: Soft, nontender to palpation without rebound or guarding. EXTREMITIES: Negative for clubbing, cyanosis, positive for trace edema. DERMATOLOGIC: No rashes. MUSCULOSKELETAL: No joint effusion. NEUROLOGIC: No focal deficits. The patient's medications have been reviewed. LABORATORY DATA: Has been reviewed. ASSESSMENT AND PLAN: 1. Nonoliguric acute kidney injury on top of chronic kidney disease stage IV with a baseline creatin ine around 3 mg/dL. Etiology of current acute kidney injury is secondary to hemodynamics. Renal fun ction appears to be improving with supportive care. Urinalysis was reviewed, no active sediment, pos itive proteinuria. Recommendation at this point is to continue current treatment plan. Continue sup portive care, renally dose all meds, monitor blood pressures closely, avoiding hemodynamic fluctuatio ns. Would defer any SAMANTHA inhibitor or ARB at this time. 2. Anemia of chronic disease. Monitor hemoglobin and hematocrit levels. Will give Epogen as needed . 3. Mineral bone disorder, monitor calcium and phosphorus levels. We will resume phos binders as nee ded. 4. Hypomagnesemia. We will replete with magnesium sulfate. 5. Metabolic acidosis secondary to chronic kidney disease. Continue to monitor. We will consider s tarting the patient on Bicitra. 6. Transient ischemic attack. The patient's CT scan showed no acute evidence of infarct. The patie nt's neurologic symptoms are improving. Continue to monitor. 7. History of coronary artery disease, status post left cardiac catheterization. Continue medical m anagement. 8. Dyslipidemia. Continue statin therapy. 9. History of sleep apnea. Continue CPAP. 10. History of diastolic dysfunction. Continue medical management. Thank you, Dr. Govea, for this interesting consult. It will be a pleasure to follow patient with frank forrest throughout the hospital course. Dictated By: GRAEME BRANDT DO NR/NTS Conf#: [id number] DID#: [id number] CC: KEN GOVEA MD;*EndCC*
--- NOTE | 2018-10-06 12:10 | CONS ---
Assessment/Plan Assessment/Plan Hospital Course 62 yo M with multiple cerebrovascular risk factors who presents for evaluation of R face/arm/leg numbness... for which neurology is consulted. The clinical picture is most ominously concerning for L thalamic stroke. Recrudescence is a diagnosis of exclusion.. HCT is without acute intracranial pathology, though notable for chronic- appearing L thalamic infarcts. CUS is notable for moderate b/l cervical ICA stenosis LDL 60 UA/UDS neg P: Await MRI, MRA H/N for further characterization Await echo Cont ASA daily for secondary stroke prevention for now; LDL is at goal Continued medical management and supportive care per primary PT/OT/ST as necessary Will follow clinically Consultation Date/Type/Reason Admit Date/Time Type of Consult Neurology Reason for Consultation R side numbness/weakness Requesting Provider: KEN GOVEA Date/Time of Note DATE: 10/06/18 TIME: 12:10 Hx of Present Illness 62 yo M with hx of HTN, DM, CAD who presented to the ED with complaints of R sided numbness and weakness. History was obtained from pt, family, and chart review. The pt endorses R sided numbness, though states that his weakness has resolved. He additionally has complaints of neck pain. Denies headache, weakness, lethargy, confusion, dizziness, vision or speech changes, difficulty with coordination. It is additionally elsewhere noted: HPI Patient is a 62-year-old male with coronary disease, hypertension, and diabetes who presents saying "I think I had a stroke". He said that his right face feels asleep and that his right arm are weak and feel numb. The symptoms started yesterday morning and have been constant. Today he also had right leg pain and upper back pain. Upon review of old medical records this is the patient's third visit to the ER since 2017. His primary doctor is Dr. Barton. negative unless noted otherwise in HPI Exam/Review of Systems Exam Vitals Vital Signs Date Temp Pulse Resp B/P (MAP) Pulse Ox O2 O2 Flow FiO2 Time Delivery Rate 10/06/18 98.0 64 20 161/79 99 11:22 (106) 10/06/18 Room Air 01:19 Intake and Output 10/05/18 10/05/18 10/06/18 1515:00 23:00 07:00 IntakeIntake Total 580 ml BalanceBalance 580 ml Exam PE: Gen Appearance: No Apparent Distress HEENT: Normocephalic Cardiovascular: Regular rate Lungs: Clear bilaterally Abdomen: Soft Extremities: Dry NE: The patient was alert and oriented. Language was normal. Fund of knowledge was normal. Pupils were equal and reactive to light. There was no afferent pupillary defect. Visual alvarenga were normal. Funduscopic examination was limited. Extra-ocular movements were full. Ptosis was absent. There was no nystagmus. Facial sensation was normal. Face was symmetric with normal strength. Hearing was intact. Palate movements were normal. Neck strength was normal. There was normal tongue bulk and speed of movement. Tone was normal. Muscle bulk was normal. I did not see fasciculations. Arms and legs were strong to confrontation. Vibration sensation, temperature and pinprick sensation was diminished on the R. Rapid alternating movements were normal. There was no dysmetria. There was no intention tremor. Gait was deferred due to bedrest. Arm and leg reflexes were symmetric. May's sign was absent. Plantar responses were flexor. Results Result Diagram: 10/06/18 0713 10/06/18 0713 Results 24hrs Laboratory Tests Test 10/05/18 20:52 10/05/18 20:54 10/05/18 22:35 10/06/18 07:13 Bedside Glucose 144 133 White Blood Count 8.7 8.1 Red Blood Count 3.45 L 3.23 L Hemoglobin 9.5 L 8.8 L Hematocrit 29.9 L 27.7 L Mean Corpuscular 86.7 85.8 Volume Mean Corpuscular 27.5 L 27.2 L Hemoglobin Mean Corpuscular 31.8 L 31.8 L Hemoglobin Concent Red Cell 13.8 14.0 Distribution Width Platelet Count 224 # 204 Mean Platelet Volume 10.1 10.6 H Immature 0.300 0.500 H Granulocytes % Neutrophils % 63.7 57.6 Lymphocytes % 24.7 29.5 Monocytes % 7.6 8.4 Eosinophils % 3.2 3.5 Basophils % 0.5 0.5 Nucleated Red Blood 0.0 0.0 Cells % Immature 0.030 0.040 H Granulocytes # Neutrophils # 5.5 4.7 Lymphocytes # 2.1 2.4 Monocytes # 0.7 0.7 Eosinophils # 0.3 0.3 Basophils # 0.0 0.0 Nucleated Red Blood 0.0 0.0 Cells # Prothrombin Time 12.4 Prothrombin Time 1.0 Ratio INR International 0.91 Normalized Ratio Activated 26.6 Partial Thromboplast Time Urine Color YELLOW Urine Clarity CLEAR Urine pH 6.0 Urine Specific 1.016 [place] Urine Ketones NEGATIVE Urine Nitrite NEGATIVE Urine Bilirubin NEGATIVE Urine Urobilinogen NEGATIVE Urine Leukocyte NEGATIVE Esterase Urine Microscopic 1 RBC Urine Microscopic 1 WBC Urine Hemoglobin 1+ H Urine Glucose 2+ H Urine Total Protein 3+ H Sodium Level 144 143 Potassium Level 4.0 4.1 Chloride Level 114 H 116 H Carbon Dioxide Level 22 20 L Anion Gap 8 7 Blood Urea Nitrogen 50 H 49 H Creatinine 3.37 H 3.14 H Est Glomerular 19 L 20 L Filtrat Rate mL/min Glucose Level 136 175 Hemoglobin A1c 7.6 H Calcium Level 8.6 8.2 L Troponin I 0.028 Triglycerides Level 283 H Cholesterol Level 149 LDL Cholesterol, 60 Calculated HDL Cholesterol 32 Cholesterol/HDL 4.6 Ratio Urine Opiates Screen NEGATIVE Urine Barbiturates NEGATIVE Urine Amphetamines NEGATIVE Screen Urine NEGATIVE Benzodiazepines Screen Urine Cocaine Screen NEGATIVE Urine Cannabinoids NEGATIVE Magnesium Level 1.6 L Total Bilirubin 0.1 L Direct Bilirubin 0.00 Indirect Bilirubin 0.1 Aspartate Amino 26 Transf (AST/SGOT) Alanine 21 Aminotransferase (AL T/SGPT) Alkaline Phosphatase 71 Total Protein 5.8 L Albumin 3.0 L Globulin 2.80 Albumin/Globulin 1.07 Ratio Thyroid Stimulating 1.140 Hormone (TSH) Test 10/06/18 08:06 10/06/18 12:05 Bedside Glucose 157 176 Medications Medication Current Medications Aspirin (Halfprin) 81 mg DAILY PO Last administered on 10/06/18 08:34; Admin Dose 81 MG; Start 10/06/18 at 09:00 Atorvastatin Calcium (Lipitor) 20 mg QHS PO ; Start 10/06/18 at 21:00 Carvedilol (Coreg) 6.25 mg BID PO Last administered on 10/06/18 08:34; Admin Dose 6.25 MG; Start 10/05/18 at 22:00 Insulin Glargine (Lantus) 30 units DAILY SC Last administered on 10/06/18 08:33; Admin Dose 30 UNITS; Start 10/05/18 at 22:00 Ticagrelor (Brilinta) 90 mg BID PO Last administered on 4/30/19at 08:34; Admin Dose 90 MG; Start 10/06/18 at 09:00 IV Flush (NS 3 ml) 3 ml PER PROTOCOL IV ; Start 10/05/18 at 22:30 Ondansetron HCl (Zofran Tab) 4 mg Q6H PRN PO NAUSEA/VOMITING; Start 10/05/18 at 22:30 Acetaminophen (Tylenol Tab) 650 mg Q6H PRN PO .PAIN 1-3 OR TEMP; Start 10/05/18 at 22:30 Docusate Sodium (Colace) 100 mg Q12H PRN PO .CONSTIPATION; Start 10/05/18 at 22:30 Bisacodyl (Dulcolax) 5 mg DAILY PRN PO .CONSTIPATION; Start 10/05/18 at 22:30 Miscellaneous Information 1 ea NOTE XX ; Start 10/05/18 at 22:30 Glucose (Glutose) 15 gm Q15M PRN PO DECREASED GLUCOSE; Start 10/05/18 at 22:30 Glucose (Glutose) 22.5 gm Q15M PRN PO DECREASED GLUCOSE; Start 10/05/18 at 22:30 Dextrose (D50w Syringe) 25 ml Q15M PRN IV DECREASED GLUCOSE; Start 10/05/18 at 22:30 Dextrose (D50w Syringe) 50 ml Q15M PRN IV DECREASED GLUCOSE; Start 10/05/18 at 22:30 Glucagon (Glucagen) 1 mg Q15M PRN IM DECREASED GLUCOSE; Start 10/05/18 at 22:30 Glucose (Glutose) 15 gm Q15M PRN BUCCAL DECREASED GLUCOSE; Start 10/05/18 at 22:30 Hydralazine HCl (Apresoline) 10 mg Q4H PRN IV ELEVATED BLOOD PRESSURE; Start 10/05/18 at 22:30 Amlodipine Besylate (Norvasc) 10 mg DAILY PO Last administered on 10/06/18at 08:35; Admin Dose 10 MG; Start 10/06/18 at 09:00 Diagnostic Test (Pha) (Accu-Chek) 1 ea 02 XX ; Start 10/07/18 at 02:00 Insulin Aspart (Novolog Insulin Pen) NOVOLOG *MILD* ALGORITHM WITH MEALS BEDTIME SC Last administered on 10/06/18at 08:33; Admin Dose 1 UNIT; Start 10/06/18 at 07:55 Past Medical History reviewed Home Meds Active Scripts Ticagrelor* (Brilinta*) 90 Mg Tablet, 90 MG PO BID for 90 Days, #180 TAB 3 Refills Prov:BHARATH KING MD 07/24/18 Carvedilol* (Carvedilol*) 6.25 Mg Tablet, 6.25 MG PO BID for 60 Days, #120 TAB Prov:BHARATH KING MD 04/13/17 Reported Medications Gabapentin* (Gabapentin*) 600 Mg Tablet, 600 MG PO DAILY, #60 TAB 10/06/18 Insulin Glargine* (Lantus*) 100 Unit/Ml Soln, 12 UNIT SC DAILY, #1 VIAL 04/05/17 Aspirin (Low Dose Aspirin) 81 Mg Tablet.dr, 81 MG PO DAILY, #30 TAB 04/05/17 Atorvastatin Calcium* (Atorvastatin Calcium*) 20 Mg Tablet, 20 MG PO QHS, #30 TAB 04/05/17 Amlodipine Besylate* (Amlodipine Besylate*) 10 Mg Tablet, 10 MG PO DAILY, #30 TAB 04/05/17 Discontinued Reported Medications Insulin Glargine* (Lantus*) 100 Unit/Ml Soln, 12 UNIT SC DAILY, #1 VIAL 10/05/18 Medications Current Medications Aspirin (Halfprin) 81 mg DAILY PO Last administered on 10/06/18at 08:34; Admin Dose 81 MG; Start 10/06/18 at 09:00 Atorvastatin Calcium (Lipitor) 20 mg QHS PO ; Start 10/06/18 at 21:00 Carvedilol (Coreg) 6.25 mg BID PO Last administered on 10/06/18at 08:34; Admin Dose 6.25 MG; Start 10/05/18 at 22:00 Insulin Glargine (Lantus) 30 units DAILY SC Last administered on 10/06/18at 08:33; Admin Dose 30 UNITS; Start 10/05/18 at 22:00 Ticagrelor (Brilinta) 90 mg BID PO Last administered on 10/06/18at 08:34; Admin Dose 90 MG; Start 10/06/18 at 09:00 IV Flush (NS 3 ml) 3 ml PER PROTOCOL IV ; Start 10/05/18 at 22:30 Ondansetron HCl (Zofran Tab) 4 mg Q6H PRN PO NAUSEA/VOMITING; Start 10/05/18 at 22:30 Acetaminophen (Tylenol Tab) 650 mg Q6H PRN PO .PAIN 1-3 OR TEMP; Start 10/05/18 at 22:30 Docusate Sodium (Colace) 100 mg Q12H PRN PO .CONSTIPATION; Start 10/05/18 at 22:30 Bisacodyl (Dulcolax) 5 mg DAILY PRN PO .CONSTIPATION; Start 10/05/18 at 22:30 Miscellaneous Information 1 ea NOTE XX ; Start 10/05/18 at 22:30 Glucose (Glutose) 15 gm Q15M PRN PO DECREASED GLUCOSE; Start 10/05/18 at 22:30 Glucose (Glutose) 22.5 gm Q15M PRN PO DECREASED GLUCOSE; Start 10/05/18 at 22:30 Dextrose (D50w Syringe) 25 ml Q15M PRN IV DECREASED GLUCOSE; Start 10/05/18 at 22:30 Dextrose (D50w Syringe) 50 ml Q15M PRN IV DECREASED GLUCOSE; Start 10/05/18 at 22:30 Glucagon (Glucagen) 1 mg Q15M PRN IM DECREASED GLUCOSE; Start 10/05/18 at 22:30 Glucose (Glutose) 15 gm Q15M PRN BUCCAL DECREASED GLUCOSE; Start 10/05/18 at 22:30 Hydralazine HCl (Apresoline) 10 mg Q4H PRN IV ELEVATED BLOOD PRESSURE; Start 10/05/18 at 22:30 Amlodipine Besylate (Norvasc) 10 mg DAILY PO Last administered on 10/06/18at 08:35; Admin Dose 10 MG; Start 10/06/18 at 09:00 Diagnostic Test (Pha) (Accu-Chek) 1 ea 02 XX ; Start 10/07/18 at 02:00 Insulin Aspart (Novolog Insulin Pen) NOVOLOG *MILD* ALGORITHM WITH MEALS BEDTIME SC Last administered on 10/06/18at 08:33; Admin Dose 1 UNIT; Start 10/06/18 at 07:55 Allergies: Coded Allergies: No Known Allergy (Unverified , 10/05/18) Past Surgical History reviewed Social History reviewed Alcohol Use: none Smoking Status: Former smoker Drug Use: none FROY AYALA NP Oct 06, 2018 12:10 HAILY CORTES Oct 06, 2018 19:25
[2018-10-06] MEDS: hydrALAzine 20 MG INJ IV PRN ×2 (15:30→22:21)
[2018-10-06] MEDS ORDERED: GABA-526 PO (15:31)
--- NOTE | 2018-10-06 17:40 | PN ---
Date/Time of Note Date/Time of Note DATE: 10/06/18 TIME: 17:33 Assessment/Plan VTE Prophylaxis Risk score (from Ns)>0 risk: 2 SCD applied (from Ns): Yes Pharmacological prophylaxis: NA/contraindicated Pharm contraindication: low risk/ambulating Lines/Catheters [facility] [place] Urinary Cath still in place: No Assessment/Plan Assessment/Plan 62 yo man with history of CAD and DM2 presents with R sided numbness and weaknes s. #R sided numbness - Also was associated with R sided weakness which has now resolved. - Currently neuro exam with no objective findings, only subjective R sided numbness on face and body. - Pending MRI and MRA. - Continue BP control. - Continue statin. - Neuro following. #CAD - Patient is status post left heart catheterization 07/23/18 with stent to L circumflex. - Previous echocardiogram showed ejection fraction of approximately 45% with stage II diastolic dysfunction. - Continue aspirin and Brilinta, statin, beta-thomas. # diabetes mellitus: - Cont insulin sliding scale # chronic kidney disease: Creatinine appears to be stable at the current time. Avoid NSAIDs, avoid nephrotoxic agents. Hold off on any SAMANTHA/ARB at the current time. # hyperlipidemia: Continue statin, adjust as indicated # JUAN JOSÉ: Patient says he is not using BiPAP. This can be arranged as outpatient. # DVT GI prophylaxis: SCDs, no GI prophylaxis indicated Result Diagram: 10/06/18 0713 10/06/18 0713 Subjective 24 Hr Interval Summary Free Text/Dictation No acute overnight events. Patient continues to report R sided numbness and weakness. Exam/Review of Systems Exam Vitals Vital Signs Date Temp Pulse Resp B/P (MAP) Pulse Ox O2 O2 Flow FiO2 Time Delivery Rate 10/06/18 70 16:20 10/06/18 97.7 20 188/82 95 15:21 (117) 10/06/18 Room Air 01:19 Intake and Output 10/05/18 10/05/18 10/06/18 1515:00 23:00 07:00 IntakeIntake Total 580 ml BalanceBalance 580 ml Exam General: Patient is an obese man currently lying in bed in no acute distress HEENT: Atraumatic, normocephalic. The pupils are equal, round and reactive. Extraocular motor are intact Neck: Supple with full range of motion. No rigidity or meningismus Chest: Nontender Lungs: Clear to auscultation bilaterally no crackles rales or wheezing Heart: Normal S1-S2, Regular rhythm and rate. No murmur, S3, or S4 Abdomen: Obese, soft , nontender, nondistended , bowel sounds are present. No guarding no rebound tenderness , Extremities: Normal to inspection, no edema no cyanosis Neurologic: CN: Normal mental status, speech normal, reports diminished sensation to light touch on the R side of the face, otherwise facial muscles symmetric with no droop. Hearing equal to finger rub bilaterally. Otherwise CN 2-12 grossly intact. Sensory: Diminished sensation to light touch R face, R arm, R leg. Motor: 5/5 strength bilateral upper and lower extremities, equally in all muscle groups. Gait: Patient ambulating with strong steady gait. Results Results 24hrs Laboratory Tests Test 10/05/18 20:52 10/05/18 20:54 10/05/18 22:35 10/06/18 07:13 Bedside Glucose 144 133 White Blood Count 8.7 8.1 Red Blood Count 3.45 L 3.23 L Hemoglobin 9.5 L 8.8 L Hematocrit 29.9 L 27.7 L Mean Corpuscular 86.7 85.8 Volume Mean Corpuscular 27.5 L 27.2 L Hemoglobin Mean Corpuscular 31.8 L 31.8 L Hemoglobin Concent Red Cell 13.8 14.0 Distribution Width Platelet Count 224 # 204 Mean Platelet Volume 10.1 10.6 H Immature 0.300 0.500 H Granulocytes % Neutrophils % 63.7 57.6 Lymphocytes % 24.7 29.5 Monocytes % 7.6 8.4 Eosinophils % 3.2 3.5 Basophils % 0.5 0.5 Nucleated Red Blood 0.0 0.0 Cells % Immature 0.030 0.040 H Granulocytes # Neutrophils # 5.5 4.7 Lymphocytes # 2.1 2.4 Monocytes # 0.7 0.7 Eosinophils # 0.3 0.3 Basophils # 0.0 0.0 Nucleated Red Blood 0.0 0.0 Cells # Prothrombin Time 12.4 Prothrombin Time 1.0 Ratio INR International 0.91 Normalized Ratio Activated 26.6 Partial Thromboplast Time Urine Color YELLOW Urine Clarity CLEAR Urine pH 6.0 Urine Specific 1.016 [place] Urine Ketones NEGATIVE Urine Nitrite NEGATIVE Urine Bilirubin NEGATIVE Urine Urobilinogen NEGATIVE Urine Leukocyte NEGATIVE Esterase Urine Microscopic 1 RBC Urine Microscopic 1 WBC Urine Hemoglobin 1+ H Urine Glucose 2+ H Urine Total Protein 3+ H Sodium Level 144 143 Potassium Level 4.0 4.1 Chloride Level 114 H 116 H Carbon Dioxide Level 22 20 L Anion Gap 8 7 Blood Urea Nitrogen 50 H 49 H Creatinine 3.37 H 3.14 H Est Glomerular 19 L 20 L Filtrat Rate mL/min Glucose Level 136 175 Hemoglobin A1c 7.6 H Calcium Level 8.6 8.2 L Troponin I 0.028 Triglycerides Level 283 H Cholesterol Level 149 LDL Cholesterol, 60 Calculated HDL Cholesterol 32 Cholesterol/HDL 4.6 Ratio Urine Opiates Screen NEGATIVE Urine Barbiturates NEGATIVE Urine Amphetamines NEGATIVE Screen Urine NEGATIVE Benzodiazepines Screen Urine Cocaine Screen NEGATIVE Urine Cannabinoids NEGATIVE Magnesium Level 1.6 L Total Bilirubin 0.1 L Direct Bilirubin 0.00 Indirect Bilirubin 0.1 Aspartate Amino 26 Transf (AST/SGOT) Alanine 21 Aminotransferase (AL T/SGPT) Alkaline Phosphatase 71 Total Protein 5.8 L Albumin 3.0 L Globulin 2.80 Albumin/Globulin 1.07 Ratio Thyroid Stimulating 1.140 Hormone (TSH) Test 10/06/18 08:06 10/06/18 12:05 10/06/18 17:23 Bedside Glucose 157 176 107 Medications Medication Current Medications Aspirin (Halfprin) 81 mg DAILY PO Last administered on 10/06/18at 08:34; Admin Dose 81 MG; Start 10/06/18 at 09:00 Atorvastatin Calcium (Lipitor) 20 mg QHS PO ; Start 10/06/18 at 21:00 Carvedilol (Coreg) 6.25 mg BID PO Last administered on 10/06/18at 08:34; Admin Dose 6.25 MG; Start 10/05/18 at 22:00 Insulin Glargine (Lantus) 30 units DAILY SC Last administered on 10/06/18at 08:33; Admin Dose 30 UNITS; Start 10/05/18 at 22:00 Ticagrelor (Brilinta) 90 mg BID PO Last administered on 10/06/18at 08:34; Admin Dose 90 MG; Start 10/06/18 at 09:00 IV Flush (NS 3 ml) 3 ml PER PROTOCOL IV ; Start 10/05/18 at 22:30 Ondansetron HCl (Zofran Tab) 4 mg Q6H PRN PO NAUSEA/VOMITING; Start 10/05/18 at 22:30 Acetaminophen (Tylenol Tab) 650 mg Q6H PRN PO .PAIN 1-3 OR TEMP Last administered on 10/06/18at 15:39; Admin Dose 650 MG; Start 10/05/18 at 22:30 Docusate Sodium (Colace) 100 mg Q12H PRN PO .CONSTIPATION; Start 10/05/18 at 22:30 Bisacodyl (Dulcolax) 5 mg DAILY PRN PO .CONSTIPATION; Start 10/05/18 at 22:30 Miscellaneous Information 1 ea NOTE XX ; Start 10/05/18 at 22:30 Glucose (Glutose) 15 gm Q15M PRN PO DECREASED GLUCOSE; Start 10/05/18 at 22:30 Glucose (Glutose) 22.5 gm Q15M PRN PO DECREASED GLUCOSE; Start 10/05/18 at 22:30 Dextrose (D50w Syringe) 25 ml Q15M PRN IV DECREASED GLUCOSE; Start 10/05/18 at 22:30 Dextrose (D50w Syringe) 50 ml Q15M PRN IV DECREASED GLUCOSE; Start 10/05/18 at 22:30 Glucagon (Glucagen) 1 mg Q15M PRN IM DECREASED GLUCOSE; Start 10/05/18 at 22:30 Glucose (Glutose) 15 gm Q15M PRN BUCCAL DECREASED GLUCOSE; Start 10/05/18 at 22:30 Hydralazine HCl (Apresoline) 10 mg Q4H PRN IV ELEVATED BLOOD PRESSURE Last administered on 10/06/18at 15:30; Admin Dose 10 MG; Start 10/05/18 at 22:30 Amlodipine Besylate (Norvasc) 10 mg DAILY PO Last administered on 10/06/18at 08:35; Admin Dose 10 MG; Start 10/06/18 at 09:00 Diagnostic Test (Pha) (Accu-Chek) 1 ea 02 XX ; Start 10/07/18 at 02:00 Insulin Aspart (Novolog Insulin Pen) NOVOLOG *MILD* ALGORITHM WITH MEALS BEDTIME SC Last administered on 10/06/18at 12:23; Admin Dose 1 UNIT; Start 10/06/18 at 07:55 MAI SMITH MD Oct 06, 2018 17:40
--- NOTE | 2018-10-06 19:36 | RADRPT ---
Echocardiogram Report Patient Name: FERMÍN PLATTPatient ID: [id number] : [id number] ([id number] )Study Date: 10/06/2018 11:03:38 AM Gender: MAccession #: [id number] Tech: Rissa Bright RDCS Location: [facility] Ref.Physician: KEN GOVEA Height(Cm): BSA: Weight(Kg): Quality: AdequateAccount #: Procedures: Echocardiographic Report: Transthoracic echocardiogram with complete 2D, M-Mode, and doppler examination. Indications: Possible cerebrovascular Accident. Measurements: 2D/M Mode Doppler Measurement Value Normal Range Measurement Value Normal Range LVIDd 2D 4.4 [ 4.2 - 5.8 ] cm AV Peak Hugo 2.1 [ 100.0 - 170.0 ] cm/sec LVIDs 2D 3.1 [ 2.5 - 4.0 ] cm AV Peak PG 17.0 [ 2.0 - 9.0 ] mmHg LVPWd 2D 1.2 [ 0.6 - 1.0 ] cm LVOT Peak Hugo 1.0 [ 70.0 - 110.0 ] cm/sec IVSd 2D 1.1 [ 0.6 - 1.0 ] cm LVOT Peak PG 4.0 [ 2.0 - 6.0 ] mmHg AoR Diam 2D 2.5 [ 2.6 - 3.4 ] cm MV E Peak Hugo 1.1 [ 60.0 - 130.0 ] cm/sec EDV 2D 87.7 [ 62.0 - 150.0 ] ml MV A Peak Hugo 1.2 [ 100.0 - 120.0 ] cm/sec ESV 2D 38.5 [ 21.0 - 61.0 ] ml MV E/A 0.9 [ 0.8 - 1.5 ] ratio EF 2D 56.1 [ 52.0 - 72.0 ] percent MV Decel Time 218 [ 104 - 258 ] msec LA Dimen 2D 3.3 [ 3.0 - 4.0 ] cm Lat E` Hugo 0.1 [ 10.0 - 15.0 ] cm/sec Lateral E/E` 17.4 [ 1.0 - 2.0 ] ratio MV E/A 0.9 [ 0.8 - 1.5 ] ratio TR Peak Hugo 2.3 [ 100.0 - 280.0 ] cm/sec TR Peak PG 21.0 mmHg RVSP 31.0 [ 10.0 - 36.0 ] mmHg RA Pressure 10.0 mmHg Findings: Left Ventricle: Normal left ventricular systolic function. Normal left ventricular cavity size. Mild concentric left ventricular hypertrophy. Ejection fraction is visually estimated at 55 %. Tissue Doppler/Mitral Doppler indices are consistent with impaired relaxation (Stage I diastolic dysfunction). Right Ventricle: Normal right ventricular size. Normal right ventricular systolic function. Left Atrium: The left atrium is normal in size. Right Atrium: The right atrium is normal in size. Atrial Septum: Bubble study was performed with and with out valsalva indicating no evidence of intra atrial shunt. Mitral Valve: Normal appearance of the mitral valve. Mild mitral annular calcification. Trace mitral regurgitation. Aortic Valve: No significant aortic stenosis or insufficiency. Aortic valve not well visualized. Aortic sclerosis without significant stenosis. Tricuspid Valve: Normal appearance of the tricuspid valve. Estimated peak PA systolic pressure 31 mmHg. Pulmonic Valve: Pulmonic valve not well visualized. Pericardium: Normal pericardium with no significant pericardial effusion. Aorta: Normal aortic root. IVC: Normal size and normal respiratory collapse consistent with normal right atrial pressure. Conclusions: Normal left ventricular systolic function. Normal left ventricular cavity size. Mild concentric left ventricular hypertrophy. Ejection fraction is visually estimated at 55 %. Tissue Doppler/Mitral Doppler indices are consistent with impaired relaxation (Stage I diastolic dysfunction). The left atrium is normal in size. Normal appearance of the mitral valve. Mild mitral annular calcification. Trace mitral regurgitation. No significant aortic stenosis or insufficiency. Aortic valve not well visualized. Aortic sclerosis without significant stenosis. Normal appearance of the tricuspid valve. Estimated peak PA systolic pressure 31 mmHg. Bubble study was performed with and with out valsalva indicating no evidence of intra atrial shunt. Electronically Signed By: Darell Benedict 2018-10-06 19:35:10 PDT
--- NOTE | 2018-10-06 20:44 | CONS ---
Assessment/Plan Assessment/Plan Hospital Course (Demo Recall) 1. Acute CVA 2. History of severe coronary artery disease 3. History of multiple nice elevation myocardial infarction 4. History of multivessel PCI 5. Hypertension 6. Chronic kidney disease 7. Diabetes 8. Dyslipidemia 9. History of smoking 10. Obesity 11. History of congestive heart failure currently chronic and stable secondary to diastolic heart failure Recommendation: Continue with aspirin and Brilinta Neurology evaluation as per neurology recommendations Monitor on telemetry Continue with the current blood pressure medication. We will allow for permissive hypertensive for now and slowly adjust the medication more tightly Diabetes managed as per internal medicine Follow-up with nephrology recommendation Thank you for this referral. We will continue to follow along with you JEANNIE FREITAS MD [facility] Consultation Date/Type/Reason Admit Date/Time Date of Consultation: Oct 06, 2018 Type of Consult Cardiology Reason for Consultation CAD Requesting Provider: KEN GOVEA Date/Time of Note DATE: 10/06/18 TIME: 20:37 Hx of Present Illness Interventional cardiology consultation note Chief complaint: Facial numbness possible stroke Reason for consult: Coronary artery disease History of present illness: Thank you for this referral. History was informed the patient review of the old chart. Patient also very well-known to me from recent admission to the hospital This is a pleasant 52-year-old gentleman with history of severe coronary artery disease has a multivessel stenting, chronic kidney disease hypertension diabetes who came to emergency room with complaint. Patient said he has some headache followed by some numbness around his face and thought he might have a stroke came to emergency room. MRI has confirmed a stroke actually Review of the old chart showed the patient was admitted to the hospital in June and underwent PCI for his non-ST elevation myocardial infarction. He had multivessel coronary artery disease and had to have a staged procedure done due to his chronic kidney disease He has had occasional nosebleed but he said he has been Brilinta PAST MEDICAL HISTORY: Coronary artery disease status post OK status post PCI of his left circumflex and LAD in 2017. He had PCI of his right coronary artery on July 10, 2018 and PCI of the left circumflex artery on July 23, 2018 history of kidney disease, history of hypertension, history of diabetes, history of coronary artery disease. Congestive heart failure PAST SURGICAL HISTORY: PCI as above mentioned FAMILY HISTORY: + Coronary artery disease SOCIAL HISTORY: Positive smoking. ALLERGIES: NO DRUG ALLERGIES. MEDICATIONS: Have been reviewed. Review of system: Patient denies all others except for above-mentioned Past Medical History Home Meds Active Scripts Ticagrelor* (Brilinta*) 90 Mg Tablet, 90 MG PO BID for 90 Days, #180 TAB 3 Refills Prov:BHARATH KING MD 07/24/18 Carvedilol* (Carvedilol*) 6.25 Mg Tablet, 6.25 MG PO BID for 60 Days, #120 TAB Prov:BHARATH KING MD 04/13/17 Reported Medications Gabapentin* (Gabapentin*) 600 Mg Tablet, 600 MG PO DAILY, #60 TAB 10/06/18 Insulin Glargine* (Lantus*) 100 Unit/Ml Soln, 12 UNIT SC DAILY, #1 VIAL 04/05/17 Aspirin (Low Dose Aspirin) 81 Mg Tablet.dr, 81 MG PO DAILY, #30 TAB 04/05/17 Atorvastatin Calcium* (Atorvastatin Calcium*) 20 Mg Tablet, 20 MG PO QHS, #30 TAB 04/05/17 Amlodipine Besylate* (Amlodipine Besylate*) 10 Mg Tablet, 10 MG PO DAILY, #30 TAB 04/05/17 Discontinued Reported Medications Insulin Glargine* (Lantus*) 100 Unit/Ml Soln, 12 UNIT SC DAILY, #1 VIAL 10/05/18 Medications Current Medications Aspirin (Halfprin) 81 mg DAILY PO Last administered on 10/06/18at 08:34; Admin Dose 81 MG; Start 10/06/18 at 09:00 Atorvastatin Calcium (Lipitor) 20 mg QHS PO ; Start 10/06/18 at 21:00 Carvedilol (Coreg) 6.25 mg BID PO Last administered on 10/06/18at 08:34; Admin Dose 6.25 MG; Start 10/05/18 at 22:00 Insulin Glargine (Lantus) 30 units DAILY SC Last administered on 10/06/18at 08:33; Admin Dose 30 UNITS; Start 10/05/18 at 22:00 Ticagrelor (Brilinta) 90 mg BID PO Last administered on 10/06/18at 08:34; Admin Dose 90 MG; Start 10/06/18 at 09:00 IV Flush (NS 3 ml) 3 ml PER PROTOCOL IV ; Start 10/05/18 at 22:30 Ondansetron HCl (Zofran Tab) 4 mg Q6H PRN PO NAUSEA/VOMITING; Start 10/05/18 at 22:30 Acetaminophen (Tylenol Tab) 650 mg Q6H PRN PO .PAIN 1-3 OR TEMP Last administered on 10/06/18at 15:39; Admin Dose 650 MG; Start 10/05/18 at 22:30 Docusate Sodium (Colace) 100 mg Q12H PRN PO .CONSTIPATION; Start 10/05/18 at 22:30 Bisacodyl (Dulcolax) 5 mg DAILY PRN PO .CONSTIPATION; Start 10/05/18 at 22:30 Miscellaneous Information 1 ea NOTE XX ; Start 10/05/18 at 22:30 Glucose (Glutose) 15 gm Q15M PRN PO DECREASED GLUCOSE; Start 10/05/18 at 22:30 Glucose (Glutose) 22.5 gm Q15M PRN PO DECREASED GLUCOSE; Start 10/05/18 at 22:30 Dextrose (D50w Syringe) 25 ml Q15M PRN IV DECREASED GLUCOSE; Start 10/05/18 at 22:30 Dextrose (D50w Syringe) 50 ml Q15M PRN IV DECREASED GLUCOSE; Start 10/05/18 at 22:30 Glucagon (Glucagen) 1 mg Q15M PRN IM DECREASED GLUCOSE; Start 10/05/18 at 22:30 Glucose (Glutose) 15 gm Q15M PRN BUCCAL DECREASED GLUCOSE; Start 10/05/18 at 22:30 Hydralazine HCl (Apresoline) 10 mg Q4H PRN IV ELEVATED BLOOD PRESSURE Last administered on 10/06/18at 15:30; Admin Dose 10 MG; Start 10/05/18 at 22:30 Amlodipine Besylate (Norvasc) 10 mg DAILY PO Last administered on 10/06/18at 08:35; Admin Dose 10 MG; Start 10/06/18 at 09:00 Diagnostic Test (Pha) (Accu-Chek) 1 ea 02 XX ; Start 10/07/18 at 02:00 Insulin Aspart (Novolog Insulin Pen) NOVOLOG *MILD* ALGORITHM WITH MEALS BEDTIME SC Last administered on 10/06/18at 12:23; Admin Dose 1 UNIT; Start 10/06/18 at 07:55 Allergies: Coded Allergies: No Known Allergy (Unverified , 10/05/18) Social History Alcohol Use: none Smoking Status: Former smoker Drug Use: none Exam/Review of Systems Vital Signs Vitals Vital Signs Date Temp Pulse Resp B/P (MAP) Pulse Ox O2 O2 Flow FiO2 Time Delivery Rate 10/06/18 58 20:00 10/06/18 97.7 20 188/82 95 15:21 (117) 10/06/18 Room Air 01:19 Intake and Output 10/05/18 10/05/18 10/06/18 1515:00 23:00 07:00 IntakeIntake Total 580 ml BalanceBalance 580 ml Exam Exam General: no acute distress HEENT: NC/AT. pupils are equal. round. NECK: NO JVD. no stridor. CV: RRR. systolic murmur; no gallop or rubs. PULM: no wheezing or rhonchi. GI: SOFT, NT, ND, no rebound or guarding Extremity: trace B/L LE edema. no clubbing. neuro: awake and alert, OX3. Psych: calm and pleasant rectal: deferred : normal EKG was personally reviewed which shows normal sinus rhythm with nonspecific T wave abnormalities Cardiogram was also personally reviewed which shows: Normal left ventricular systolic function. Normal left ventricular cavity size. Mild concentric left ventricular hypertrophy. Ejection fraction is visually estimated at 55 %. Tissue Doppler/Mitral Doppler indices are consistent with impaired relaxation (Stage I diastolic dysfunction). The left atrium is normal in size. Normal appearance of the mitral valve. Mild mitral annular calcification. Trace mitral regurgitation. No significant aortic stenosis or insufficiency. Aortic valve not well visualized. Aortic sclerosis without significant stenosis. Normal appearance of the tricuspid valve. Estimated peak PA systolic pressure 31 mmHg. Bubble study was performed with and with out valsalva indicating no evidence of intra atrial shunt. MRI of the brain showed: 1. Acute left thalamic lacunar infarcts. 2. Chronic bilateral cerebral microvascular ischemic disease. Labs Result Diagram: 10/06/18 0713 10/06/18 0713 Results 24hrs Laboratory Tests Test 10/05/18 20:52 10/05/18 20:54 10/05/18 22:35 10/06/18 07:13 Bedside Glucose 144 133 White Blood Count 8.7 8.1 Red Blood Count 3.45 L 3.23 L Hemoglobin 9.5 L 8.8 L Hematocrit 29.9 L 27.7 L Mean Corpuscular 86.7 85.8 Volume Mean Corpuscular 27.5 L 27.2 L Hemoglobin Mean Corpuscular 31.8 L 31.8 L Hemoglobin Concent Red Cell 13.8 14.0 Distribution Width Platelet Count 224 # 204 Mean Platelet Volume 10.1 10.6 H Immature 0.300 0.500 H Granulocytes % Neutrophils % 63.7 57.6 Lymphocytes % 24.7 29.5 Monocytes % 7.6 8.4 Eosinophils % 3.2 3.5 Basophils % 0.5 0.5 Nucleated Red Blood 0.0 0.0 Cells % Immature 0.030 0.040 H Granulocytes # Neutrophils # 5.5 4.7 Lymphocytes # 2.1 2.4 Monocytes # 0.7 0.7 Eosinophils # 0.3 0.3 Basophils # 0.0 0.0 Nucleated Red Blood 0.0 0.0 Cells # Prothrombin Time 12.4 Prothrombin Time 1.0 Ratio INR International 0.91 Normalized Ratio Activated 26.6 Partial Thromboplast Time Urine Color YELLOW Urine Clarity CLEAR Urine pH 6.0 Urine Specific 1.016 [place] Urine Ketones NEGATIVE Urine Nitrite NEGATIVE Urine Bilirubin NEGATIVE Urine Urobilinogen NEGATIVE Urine Leukocyte NEGATIVE Esterase Urine Microscopic 1 RBC Urine Microscopic 1 WBC Urine Hemoglobin 1+ H Urine Glucose 2+ H Urine Total Protein 3+ H Sodium Level 144 143 Potassium Level 4.0 4.1 Chloride Level 114 H 116 H Carbon Dioxide Level 22 20 L Anion Gap 8 7 Blood Urea Nitrogen 50 H 49 H Creatinine 3.37 H 3.14 H Est Glomerular 19 L 20 L Filtrat Rate mL/min Glucose Level 136 175 Hemoglobin A1c 7.6 H Calcium Level 8.6 8.2 L Troponin I 0.028 Triglycerides Level 283 H Cholesterol Level 149 LDL Cholesterol, 60 Calculated HDL Cholesterol 32 Cholesterol/HDL 4.6 Ratio Urine Opiates Screen NEGATIVE Urine Barbiturates NEGATIVE Urine Amphetamines NEGATIVE Screen Urine NEGATIVE Benzodiazepines Screen Urine Cocaine Screen NEGATIVE Urine Cannabinoids NEGATIVE Magnesium Level 1.6 L Total Bilirubin 0.1 L Direct Bilirubin 0.00 Indirect Bilirubin 0.1 Aspartate Amino 26 Transf (AST/SGOT) Alanine 21 Aminotransferase (AL T/SGPT) Alkaline Phosphatase 71 Total Protein 5.8 L Albumin 3.0 L Globulin 2.80 Albumin/Globulin 1.07 Ratio Thyroid Stimulating 1.140 Hormone (TSH) Test 10/06/18 08:06 10/06/18 12:05 10/06/18 17:23 Bedside Glucose 157 176 107 Medications Medications Current Medications Aspirin (Halfprin) 81 mg DAILY PO Last administered on 10/06/18at 08:34; Admin Dose 81 MG; Start 10/06/18 at 09:00 Atorvastatin Calcium (Lipitor) 20 mg QHS PO ; Start 10/06/18 at 21:00 Carvedilol (Coreg) 6.25 mg BID PO Last administered on 10/06/18at 08:34; Admin Dose 6.25 MG; Start 10/05/18 at 22:00 Insulin Glargine (Lantus) 30 units DAILY SC Last administered on 10/06/18at 08:33; Admin Dose 30 UNITS; Start 10/05/18 at 22:00 Ticagrelor (Brilinta) 90 mg BID PO Last administered on 10/06/18at 08:34; Admin Dose 90 MG; Start 10/06/18 at 09:00 IV Flush (NS 3 ml) 3 ml PER PROTOCOL IV ; Start 10/05/18 at 22:30 Ondansetron HCl (Zofran Tab) 4 mg Q6H PRN PO NAUSEA/VOMITING; Start 10/05/18 at 22:30 Acetaminophen (Tylenol Tab) 650 mg Q6H PRN PO .PAIN 1-3 OR TEMP Last administered on 10/06/18at 15:39; Admin Dose 650 MG; Start 10/05/18 at 22:30 Docusate Sodium (Colace) 100 mg Q12H PRN PO .CONSTIPATION; Start 10/05/18 at 22:30 Bisacodyl (Dulcolax) 5 mg DAILY PRN PO .CONSTIPATION; Start 10/05/18 at 22:30 Miscellaneous Information 1 ea NOTE XX ; Start 10/05/18 at 22:30 Glucose (Glutose) 15 gm Q15M PRN PO DECREASED GLUCOSE; Start 10/05/18 at 22:30 Glucose (Glutose) 22.5 gm Q15M PRN PO DECREASED GLUCOSE; Start 10/05/18 at 22:30 Dextrose (D50w Syringe) 25 ml Q15M PRN IV DECREASED GLUCOSE; Start 10/05/18 at 22:30 Dextrose (D50w Syringe) 50 ml Q15M PRN IV DECREASED GLUCOSE; Start 10/05/18 at 22:30 Glucagon (Glucagen) 1 mg Q15M PRN IM DECREASED GLUCOSE; Start 10/05/18 at 22:30 Glucose (Glutose) 15 gm Q15M PRN BUCCAL DECREASED GLUCOSE; Start 10/05/18 at 22:30 Hydralazine HCl (Apresoline) 10 mg Q4H PRN IV ELEVATED BLOOD PRESSURE Last administered on 10/06/18at 15:30; Admin Dose 10 MG; Start 10/05/18 at 22:30 Amlodipine Besylate (Norvasc) 10 mg DAILY PO Last administered on 10/06/18at 08:35; Admin Dose 10 MG; Start 10/06/18 at 09:00 Diagnostic Test (Pha) (Accu-Chek) 1 ea 02 XX ; Start 10/07/18 at 02:00 Insulin Aspart (Novolog Insulin Pen) NOVOLOG *MILD* ALGORITHM WITH MEALS BEDTIME SC Last administered on 10/06/18at 12:23; Admin Dose 1 UNIT; Start 10/06/18 at 07:55 JEANNIE FREITAS MD Oct 06, 2018 20:44
[2018-10-06] MEDS: ATORVASTATIN 20 MG TAB PO SCH (21:59)
[2018-10-07] VITALS (10 sets, daily range): BP systolic 149–170; BP diastolic 67–84; PULSE 56–78; RESP 20–22
[2018-10-07] MEDS: ACCU-CHEK XX SCH (02:15)
[2018-10-07] MEDS: INSULIN ASPART [NOVOLOG] 3 ML PEN SC SCH ×4 (07:50→20:58)
[2018-10-07] MEDS: AMLODIPINE 10 MG TAB PO SCH (08:13)
[2018-10-07] MEDS: ASPIRIN (EC) 81 MG TAB PO SCH (08:13)
[2018-10-07] MEDS: TICAGRELOR 90 MG TABLET PO SCH ×2 (08:14→20:58)
[2018-10-07] MEDS: INSULIN GLARGINE [LANTus] (100 UNITS/ML) SYG SC SCH (08:14)
--- NOTE | 2018-10-07 09:29 | PN ---
DATE: 10/07/2018 SUBJECTIVE: The patient is stable. No events overnight. OBJECTIVE: VITAL SIGNS: Blood pressure is 170/84, pulse 61, respirations 20, temperature 97.2. HEENT: Head is normocephalic. NECK: Supple. HEART: Regular rate. LUNGS: Show diminished breath sounds at the base. ABDOMEN: Soft, nontender to palpation without rebound or guarding. EXTREMITIES: Negative for clubbing, cyanosis. Trace edema. DERMATOLOGIC: No rashes. MUSCULOSKELETAL: No joint effusion. NEUROLOGIC: No change in exam. MEDICATIONS: Reviewed. LABORATORY DATA: Reviewed. ASSESSMENT AND PLAN: 1. Nonoliguric acute kidney injury on top of chronic kidney disease with baseline creatinine of arou nd 3.0 mg/dL. Etiology of acute kidney injury is secondary to hemodynamics. Renal function is impro jakob, appears to be near baseline. We will continue current treatment plans, supportive care, renally dose all medicines. Defer any SAMANTHA inhibitor at this time. 2. Anemia of chronic disease. Monitor hemoglobin and hematocrit levels. Continue Epogen as needed. 3. Mineral bone disorder, monitor calcium and phosphorus levels. Continue phosphate binders. 4. Hypomagnesemia. Continue to monitor and replete. 5. Metabolic acidosis secondary to acute kidney injury and chronic kidney disease. Continue to sina tor. We will consider starting Bicitra. 6. Coronary artery disease. Continue current medical management. 7. Acute stroke. The patient's MRI of the brain shows evidence of acute lacunar infarct. Continue current medical management. Continue statin. Continue antiplatelet therapy. 8. Dyslipidemia. Continue statin therapy. 9. History of sleep apnea. Continue CPAP. 10. History of diastolic dysfunction. Dictated By: GRAEME BRANDT DO NR/NTS Conf#: [id number] DID#: [id number] CC: HAILY CORTES; KEN GOVEA MD; MAI SMITH MD;*End*
--- NOTE | 2018-10-07 09:34 | CONS ---
Consult Date/Type/Reason Admit Date/Time Oct 05, 2018 at 21:42 Initial Consult Date 10/06/18 Type of Consultation: CV Requesting Provider: KEN GOVEA Date/Time of Note DATE: 10/07/18 TIME: 09:32 Subjective Cardiology follow-up progress note Subjective: Case discussed with discussed with patient and . Telemetry was reviewed patient remained sinus rhythm sinus bradycardia No chest pain or pressure no palpitation. Still complains of nose pain and numbness Objective: General: no acute distress HEENT: NC/AT. pupils are equal. round. NECK: NO JVD. no stridor. CV: RRR. systolic murmur; no gallop or rubs. PULM: no wheezing or rhonchi. GI: SOFT, NT, ND, no rebound or guarding Extremity: trace B/L LE edema. no clubbing. neuro: awake and alert, OX3. Psych: calm and pleasant rectal: deferred : normal EKG was personally reviewed which shows normal sinus rhythm with nonspecific T wave abnormalities Cardiogram was also personally reviewed which shows: Normal left ventricular systolic function. Normal left ventricular cavity size. Mild concentric left ventricular hypertrophy. Ejection fraction is visually estimated at 55 %. Tissue Doppler/Mitral Doppler indices are consistent with impaired relaxation (Stage I diastolic dysfunction). The left atrium is normal in size. Normal appearance of the mitral valve. Mild mitral annular calcification. Trace mitral regurgitation. No significant aortic stenosis or insufficiency. Aortic valve not well visualized. Aortic sclerosis without significant stenosis. Normal appearance of the tricuspid valve. Estimated peak PA systolic pressure 31 mmHg. Bubble study was performed with and with out valsalva indicating no evidence of intra atrial shunt. MRI of the brain showed: 1. Acute left thalamic lacunar infarcts. 2. Chronic bilateral cerebral microvascular ischemic disease. Objective Vitals Vital Signs Date Temp Pulse Resp B/P (MAP) Pulse Ox O2 O2 Flow FiO2 Time Delivery Rate 10/07/18 61 08:12 10/07/18 97.2 20 170/84 97 Room Air 07:31 (112) Intake and Output 10/06/18 10/06/18 10/07/18 1414:59 22:59 06:59 IntakeIntake Total 50 ml 1380 ml 120 ml OutputOutput Total 1645 ml 400 ml BalanceBalance 50 ml -265 ml -280 ml Results/Medications Result Diagram: 10/07/18 0627 10/07/1827 Results 24 hrs Laboratory Tests Test 10/06/18 12:05 10/06/18 17:23 10/06/18 21:57 10/07/18 02:15 Bedside Glucose 176 107 241 H 120 Test 10/07/18 06:27 10/07/18 07:49 White Blood Count 9.3 Red Blood Count 3.51 L Hemoglobin 9.6 L Hematocrit 29.8 L Mean Corpuscular 84.9 Volume Mean Corpuscular 27.4 L Hemoglobin Mean Corpuscular 32.2 Hemoglobin Concent Red Cell Distribution 13.9 Width Platelet Count 249 # Mean Platelet Volume 10.5 H Immature Granulocytes 0.300 % Neutrophils % 67.5 Lymphocytes % 22.9 Monocytes % 5.9 Eosinophils % 2.9 Basophils % 0.5 Nucleated Red Blood 0.0 Cells % Immature Granulocytes 0.030 # Neutrophils # 6.2 Lymphocytes # 2.1 Monocytes # 0.6 Eosinophils # 0.3 Basophils # 0.1 Nucleated Red Blood 0.0 Cells # Sodium Level 141 Potassium Level 4.0 Chloride Level 115 H Carbon Dioxide Level 20 L Anion Gap 6 Blood Urea Nitrogen 48 H Creatinine 3.19 H Est Glomerular 20 L Filtrat Rate mL/min Glucose Level 130 # Calcium Level 8.9 Phosphorus Level 4.5 Magnesium Level 2.0 Bedside Glucose 101 Home Meds Active Scripts Ticagrelor* (Brilinta*) 90 Mg Tablet, 90 MG PO BID for 90 Days, #180 TAB 3 Refills Prov:BHARATH KING MD 07/24/18 Carvedilol* (Carvedilol*) 6.25 Mg Tablet, 6.25 MG PO BID for 60 Days, #120 TAB Prov:BHARATH KING MD 04/13/17 Reported Medications Gabapentin* (Gabapentin*) 600 Mg Tablet, 600 MG PO DAILY, #60 TAB 10/06/18 Insulin Glargine* (Lantus*) 100 Unit/Ml Soln, 12 UNIT SC DAILY, #1 VIAL 04/05/17 Aspirin (Low Dose Aspirin) 81 Mg Tablet.dr, 81 MG PO DAILY, #30 TAB 04/05/17 Atorvastatin Calcium* (Atorvastatin Calcium*) 20 Mg Tablet, 20 MG PO QHS, #30 TAB 04/05/17 Amlodipine Besylate* (Amlodipine Besylate*) 10 Mg Tablet, 10 MG PO DAILY, #30 TAB 04/05/17 Discontinued Reported Medications Insulin Glargine* (Lantus*) 100 Unit/Ml Soln, 12 UNIT SC DAILY, #1 VIAL 10/05/18 Medications Current Medications Aspirin (Halfprin) 81 mg DAILY PO Last administered on 10/07/18at 08:13; Admin Dose 81 MG; Start 10/06/18 at 09:00 Atorvastatin Calcium (Lipitor) 20 mg QHS PO Last administered on 10/06/18at 21:59; Admin Dose 20 MG; Start 10/06/18 at 21:00 Insulin Glargine (Lantus) 30 units DAILY SC Last administered on 10/07/18at 08:14; Admin Dose 30 UNITS; Start 10/05/18 at 22:00 Ticagrelor (Brilinta) 90 mg BID PO Last administered on 10/07/18at 08:14; Admin Dose 90 MG; Start 10/06/18 at 09:00 IV Flush (NS 3 ml) 3 ml PER PROTOCOL IV ; Start 10/05/18 at 22:30 Ondansetron HCl (Zofran Tab) 4 mg Q6H PRN PO NAUSEA/VOMITING; Start 10/05/18 at 22:30 Acetaminophen (Tylenol Tab) 650 mg Q6H PRN PO .PAIN 1-3 OR TEMP Last administered on 10/06/18at 15:39; Admin Dose 650 MG; Start 10/05/18 at 22:30 Docusate Sodium (Colace) 100 mg Q12H PRN PO .CONSTIPATION; Start 10/05/18 at 22:30 Bisacodyl (Dulcolax) 5 mg DAILY PRN PO .CONSTIPATION; Start 10/05/18 at 22:30 Miscellaneous Information 1 ea NOTE XX ; Start 10/05/18 at 22:30 Glucose (Glutose) 15 gm Q15M PRN PO DECREASED GLUCOSE; Start 10/05/18 at 22:30 Glucose (Glutose) 22.5 gm Q15M PRN PO DECREASED GLUCOSE; Start 10/05/18 at 22:30 Dextrose (D50w Syringe) 25 ml Q15M PRN IV DECREASED GLUCOSE; Start 10/05/18 at 22:30 Dextrose (D50w Syringe) 50 ml Q15M PRN IV DECREASED GLUCOSE; Start 10/05/18 at 22:30 Glucagon (Glucagen) 1 mg Q15M PRN IM DECREASED GLUCOSE; Start 10/05/18 at 22:30 Glucose (Glutose) 15 gm Q15M PRN BUCCAL DECREASED GLUCOSE; Start 10/05/18 at 22:30 Hydralazine HCl (Apresoline) 10 mg Q4H PRN IV ELEVATED BLOOD PRESSURE Last administered on 10/06/18at 22:21; Admin Dose 10 MG; Start 10/05/18 at 22:30 Amlodipine Besylate (Norvasc) 10 mg DAILY PO Last administered on 10/07/18at 08:13; Admin Dose 10 MG; Start 10/06/18 at 09:00 Diagnostic Test (Pha) (Accu-Chek) 1 ea 02 XX Last administered on 10/07/18at 02:15; Admin Dose 1 EA; Start 10/07/18 at 02:00 Insulin Aspart (Novolog Insulin Pen) NOVOLOG *MILD* ALGORITHM WITH MEALS BEDTIME SC Last administered on 10/06/18at 22:02; Admin Dose 2 UNIT; Start 10/06/18 at 07:55 Citric Acid/ Sodium Citrate (Bicitra) 30 ml BID PO ; Start 10/07/18 at 09:00 Carvedilol (Coreg) 6.25 mg ONCE PO ; Start 10/07/18 at 09:30; Stop 10/07/18 at 12:00 Carvedilol (Coreg) 6.25 mg BID PO ; Start 10/07/18 at 21:00 Hydralazine HCl (Apresoline) 50 mg TID PO ; Start 10/07/18 at 13:00 Assessment/Plan Hospital Course (Demo Recall) 1. Acute CVA 2. History of severe coronary artery disease 3. History of multiple NonST elevation myocardial infarction 4. History of multivessel PCI 5. Hypertension 6. Chronic kidney disease 7. Diabetes 8. Dyslipidemia 9. History of smoking 10. Obesity 11. History of congestive heart failure currently chronic and stable secondary to diastolic heart failure 12. Bradycardia Recommendation: Continue with aspirin and Brilinta Neurology evaluation as per neurology recommendations Monitor on telemetry We will decrease the Coreg to 6.25 twice daily to avoid excessive bradycardia. I will add hydralazine to his regimen Diabetes managed as per internal medicine Follow-up with nephrology recommendation Thank you for this referral. We will continue to follow along with you JEANNIE FREITAS MD [facility] JEANNIE FREITAS MD October 07, 2018 09:34
[2018-10-07] MEDS: CITRIC ACID/NA CITRATE 30 ML CUP PO SCH ×2 (10:32→20:46)
--- NOTE | 2018-10-07 15:47 | PN ---
Date/Time of Note Date/Time of Note DATE: 10/07/18 TIME: 15:44 Assessment/Plan VTE Prophylaxis Risk score (from Ns)>0 risk: 2 SCD applied (from [facility] [place] Yes Pharmacological prophylaxis: NA/contraindicated Pharm contraindication: low risk/ambulating Lines/Catheters IV Catheter Type (from [facility]): Saline Lock Urinary Cath still in place: No Assessment/Plan Assessment/Plan 62 yo man with history of CAD and DM2 presents with R sided numbness and weakness. #Acute thalamic stroke. - Has R sided numbness - Also was associated with R sided weakness which has now resolved. - Currently neuro exam with no objective findings, only subjective R sided numbness on face and body. - Continue ASA, statin. - Neuro following. - Discharged from PT and OT #CAD - Patient is status post left heart catheterization 07/23/18 with stent to L circumflex. - Previous echocardiogram showed ejection fraction of approximately 45% with stage II diastolic dysfunction. - Continue aspirin and Brilinta, statin, beta-thomas. # diabetes mellitus: - Cont insulin sliding scale # chronic kidney disease: Creatinine appears to be stable at the current time. Avoid NSAIDs, avoid nephrotoxic agents. Hold off on any SAMANTHA/ARB at the current time. # hyperlipidemia: Continue statin, adjust as indicated # JUAN JOSÉ: Patient says he is not using BiPAP. This can be arranged as outpatient. # DVT GI prophylaxis: SCDs, no GI prophylaxis indicated Dispo: Tentative plan for discharge home tomorrow. Result Diagram: 10/07/18 0627 10/07/18 0627 Subjective 24 Hr Interval Summary Free Text/Dictation Patient continues to have R sided numbness. Strength has returned. Also complaining of mid back pain. Seen by PT and OT today. Exam/Review of Systems Exam Vitals Vital Signs Date Temp Pulse Resp B/P (MAP) Pulse Ox O2 O2 Flow FiO2 Time Delivery Rate 10/07/18 98.0 58 20 149/67 94 Room Air 15:19 (94) Intake and Output 10/06/18 10/06/18 10/07/18 1515:00 23:00 07:00 IntakeIntake Total 50 ml 1380 ml 120 ml OutputOutput Total 1645 ml 400 ml BalanceBalance 50 ml -265 ml -280 ml Exam General: Patient is an obese man currently lying in bed in no acute distress HEENT: Atraumatic, normocephalic. The pupils are equal, round and reactive. Extraocular motor are intact Neck: Supple with full range of motion. No rigidity or meningismus Chest: Nontender Lungs: Clear to auscultation bilaterally no crackles rales or wheezing Heart: Normal S1-S2, Regular rhythm and rate. No murmur, S3, or S4 Abdomen: Obese, soft , nontender, nondistended , bowel sounds are present. No guarding no rebound tenderness , Extremities: Normal to inspection, no edema no cyanosis Results Results 24hrs Laboratory Tests Test 10/06/18 17:23 10/06/18 21:57 10/07/18 02:15 10/07/18 06:27 Bedside Glucose 107 241 H 120 White Blood Count 9.3 Red Blood Count 3.51 L Hemoglobin 9.6 L Hematocrit 29.8 L Mean Corpuscular 84.9 Volume Mean Corpuscular 27.4 L Hemoglobin Mean Corpuscular 32.2 Hemoglobin Concent Red Cell Distribution 13.9 Width Platelet Count 249 # Mean Platelet Volume 10.5 H Immature Granulocytes 0.300 % Neutrophils % 67.5 Lymphocytes % 22.9 Monocytes % 5.9 Eosinophils % 2.9 Basophils % 0.5 Nucleated Red Blood 0.0 Cells % Immature Granulocytes 0.030 # Neutrophils # 6.2 Lymphocytes # 2.1 Monocytes # 0.6 Eosinophils # 0.3 Basophils # 0.1 Nucleated Red Blood 0.0 Cells # Sodium Level 141 Potassium Level 4.0 Chloride Level 115 H Carbon Dioxide Level 20 L Anion Gap 6 Blood Urea Nitrogen 48 H Creatinine 3.19 H Est Glomerular Filtrat 20 L Rate mL/min Glucose Level 130 # Calcium Level 8.9 Phosphorus Level 4.5 Magnesium Level 2.0 Test 10/07/18 07:49 10/07/18 12:34 Bedside Glucose 101 143 Medications Medication Current Medications Aspirin (Halfprin) 81 mg DAILY PO Last administered on 10/07/18at 08:13; Admin Dose 81 MG; Start 10/06/18 at 09:00 Atorvastatin Calcium (Lipitor) 20 mg QHS PO Last administered on 10/06/18at 21:59; Admin Dose 20 MG; Start 10/06/18 at 21:00 Insulin Glargine (Lantus) 30 units DAILY SC Last administered on 10/07/18at 0 8:14; Admin Dose 30 UNITS; Start 10/05/18 at 22:00 Ticagrelor (Brilinta) 90 mg BID PO Last administered on 10/07/18at 08:14; Admin Dose 90 MG; Start 10/06/18 at 09:00 IV Flush (NS 3 ml) 3 ml PER PROTOCOL IV ; Start 10/05/18 at 22:30 Ondansetron HCl (Zofran Tab) 4 mg Q6H PRN PO NAUSEA/VOMITING; Start 10/05/18 at 22:30 Acetaminophen (Tylenol Tab) 650 mg Q6H PRN PO .PAIN 1-3 OR TEMP Last administered on 10/06/18at 15:39; Admin Dose 650 MG; Start 10/05/18 at 22:30 Docusate Sodium (Colace) 100 mg Q12H PRN PO .CONSTIPATION; Start 10/05/18 at 22:30 Bisacodyl (Dulcolax) 5 mg DAILY PRN PO .CONSTIPATION; Start 10/05/18 at 22:30 Miscellaneous Information 1 ea NOTE XX ; Start 10/05/18 at 22:30 Glucose (Glutose) 15 gm Q15M PRN PO DECREASED GLUCOSE; Start 10/05/18 at 22:30 Glucose (Glutose) 22.5 gm Q15M PRN PO DECREASED GLUCOSE; Start 10/05/18 at 22:30 Dextrose (D50w Syringe) 25 ml Q15M PRN IV DECREASED GLUCOSE; Start 10/05/18 at 22:30 Dextrose (D50w Syringe) 50 ml Q15M PRN IV DECREASED GLUCOSE; Start 10/05/18 at 22:30 Glucagon (Glucagen) 1 mg Q15M PRN IM DECREASED GLUCOSE; Start 10/05/18 at 22:30 Glucose (Glutose) 15 gm Q15M PRN BUCCAL DECREASED GLUCOSE; Start 10/05/18 at 22:30 Hydralazine HCl (Apresoline) 10 mg Q4H PRN IV ELEVATED BLOOD PRESSURE Last administered on 10/06/18at 22:21; Admin Dose 10 MG; Start 10/05/18 at 22:30 Amlodipine Besylate (Norvasc) 10 mg DAILY PO Last administered on 10/07/18at 08:13; Admin Dose 10 MG; Start 10/06/18 at 09:00 Diagnostic Test (Pha) (Accu-Chek) 1 ea 02 XX Last administered on 10/07/18at 02:15; Admin Dose 1 EA; Start 10/07/18 at 02:00 Insulin Aspart (Novolog Insulin Pen) NOVOLOG *MILD* ALGORITHM WITH MEALS BEDTIME SC Last administered on 10/07/18at 12:53; Admin Dose 1 UNIT; Start 10/06/18 at 07:55 Citric Acid/ Sodium Citrate (Bicitra) 30 ml BID PO Last administered on 10/07/18at 10:32; Admin Dose 30 ML; Start 10/07/18 at 09:00 Carvedilol (Coreg) 6.25 mg BID PO ; Start 10/07/18 at 21:00 Hydralazine HCl (Apresoline) 50 mg TID PO Last administered on 10/07/18at 12:49; Admin Dose 50 MG; Start 10/07/18 at 13:00 MAI SMITH MD October 07, 2018 15:47
--- NOTE | 2018-10-07 15:52 | CONS ---
Assessment/Plan Assessment/Plan Hospital Course 62 yo M with multiple cerebrovascular risk factors who presents for evaluation of R face/arm/leg numbness concerning for stroke.. for which neurology is consulted. MRI brain confirmed acute L thalamic lacunar infarcts. MRA H/N is without evidence of multifocal stenoses. Echo is unrevealing. LDL 60; A1C 7.6 UA/UDS neg P: Cont ASA daily for secondary stroke prevention for now; LDL is at goal Continued medical management and supportive care per primary PT/OT/ST as necessary Will follow clinically Consultation Date/Type/Reason Admit Date/Time Oct 05, 2018 at 21:42 Type of Consult Neurology Reason for Consultation R side numbness/weakness Requesting Provider: KEN GOVEA Date/Time of Note DATE: 10/07/18 TIME: 15:52 24 HR Interval Summary Free Text/Dictation Continues acute care. S/p MRI, MRA H/N. Pt continues to endorse R hemisensory loss, though states that it has improved a little. Exam Vital Signs Vitals Vital Signs Date Temp Pulse Resp B/P (MAP) Pulse Ox O2 O2 Flow FiO2 Time Delivery Rate 10/07/18 98.0 58 20 149/67 94 Room Air 15:19 (94) Intake and Output 10/06/18 10/06/18 10/07/18 1515:00 23:00 07:00 IntakeIntake Total 50 ml 1380 ml 120 ml OutputOutput Total 1645 ml 400 ml BalanceBalance 50 ml -265 ml -280 ml Exam PE: Gen Appearance: No Apparent Distress HEENT: Normocephalic Cardiovascular: Regular rate Lungs: Clear bilaterally Abdomen: Soft Extremities: Dry NE: The patient was alert and oriented. Language was normal. Fund of knowledge was normal. Pupils were equal and reactive to light. There was no afferent pupillary defect. Visual alvarenga were normal. Funduscopic examination was limited. Extra-ocular movements were full. Ptosis was absent. There was no nystagmus. Facial sensation was normal. Face was symmetric with normal strength. Hearing was intact. Palate movements were normal. Neck strength was normal. There was normal tongue bulk and speed of movement. Tone was normal. Muscle bulk was normal. I did not see fasciculations. Arms and legs were strong to confrontation. Vibration sensation, temperature and pinprick sensation was diminished on the R. Rapid alternating movements were normal. There was no dysmetria. There was no intention tremor. Gait was deferred due to bedrest. Arm and leg reflexes were symmetric. May's sign was absent. Plantar responses were flexor. FROY AYALA NP October 07, 2018 15:52 HAILY CORTES October 07, 2018 20:27
[2018-10-07] MEDS: ATORVASTATIN 20 MG TAB PO SCH (20:46)
[2018-10-08] VITALS (7 sets, daily range): BP systolic 129–156; BP diastolic 63–68; PULSE 35–69; RESP 20
[2018-10-08] MEDS: ACCU-CHEK XX SCH (02:00)
[2018-10-08] MEDS: INSULIN ASPART [NOVOLOG] 3 ML PEN SC SCH (07:55)
[2018-10-08] MEDS: CITRIC ACID/NA CITRATE 30 ML CUP PO SCH (08:08)
[2018-10-08] MEDS: ASPIRIN (EC) 81 MG TAB PO SCH (08:08)
[2018-10-08] MEDS: TICAGRELOR 90 MG TABLET PO SCH (08:09)
[2018-10-08] MEDS: INSULIN GLARGINE [LANTus] (100 UNITS/ML) SYG SC SCH (08:09)
[2018-10-08] MEDS: AMLODIPINE 10 MG TAB PO SCH (08:10)
--- NOTE | 2018-10-08 08:10 | CONS ---
Consult Date/Type/Reason Admit Date/Time Oct 05, 2018 at 21:42 Initial Consult Date 10/06/18 Type of Consultation: CV Requesting Provider: KEN GOVEA Date/Time of Note DATE: 10/08/18 TIME: 08:08 Subjective Cardiology follow-up progress note Subjective: Case discussed with staff and Telemetry was reviewed patient remained sinus rhythm /sinus bradycardia with short episode of asymptomatic 2-1 AV block during sleep time No chest pain or pressure no palpitation. Objective: General: no acute distress HEENT: NC/AT. pupils are equal. round. NECK: NO JVD. no stridor. CV: RRR. systolic murmur; no gallop or rubs. PULM: no wheezing or rhonchi. GI: SOFT, NT, ND, no rebound or guarding Extremity: trace B/L LE edema. no clubbing. neuro: awake and alert, OX3. Psych: calm and pleasant rectal: deferred : normal EKG was personally reviewed which shows normal sinus rhythm with nonspecific T wave abnormalities Cardiogram was also personally reviewed which shows: Normal left ventricular systolic function. Normal left ventricular cavity size. Mild concentric left ventricular hypertrophy. Ejection fraction is visually estimated at 55 %. Tissue Doppler/Mitral Doppler indices are consistent with impaired relaxation (Stage I diastolic dysfunction). The left atrium is normal in size. Normal appearance of the mitral valve. Mild mitral annular calcification. Trace mitral regurgitation. No significant aortic stenosis or insufficiency. Aortic valve not well visualized. Aortic sclerosis without significant stenosis. Normal appearance of the tricuspid valve. Estimated peak PA systolic pressure 31 mmHg. Bubble study was performed with and with out valsalva indicating no evidence of intra atrial shunt. MRI of the brain showed: 1. Acute left thalamic lacunar infarcts. 2. Chronic bilateral cerebral microvascular ischemic disease. Objective Vitals Vital Signs Date Temp Pulse Resp B/P (MAP) Pulse Ox O2 O2 Flow FiO2 Time Delivery Rate 10/08/18 97.9 64 20 150/63 96 Room Air 07:22 (92) Intake and Output 10/07/18 10/07/18 10/08/18 1515:00 23:00 07:00 IntakeIntake Total 960 ml 1000 ml OutputOutput Total 1400 ml 900 ml BalanceBalance -440 ml 100 ml Results/Medications Result Diagram: 10/08/1860410/08/18604 Results 24 hrs Laboratory Tests Test 10/07/18 12:34 10/07/18 14:37 10/07/18 18:03 10/07/18 20:49 Bedside Glucose 143 82 188 Erythrocyte 65 H Sedimentation Rate Test 10/08/18 03:30 10/08/18 06:05 10/08/18 07:52 Bedside Glucose 84 82 White Blood Count 9.0 Red Blood Count 3.39 L Hemoglobin 9.2 L Hematocrit 28.6 L Mean Corpuscular Volume 84.4 Mean Corpuscular 27.1 L Hemoglobin Mean Corpuscular 32.2 Hemoglobin Concent Red Cell Distribution 14.0 Width Platelet Count 232 Mean Platelet Volume 10.4 Immature Granulocytes % 0.300 Neutrophils % 68.0 Lymphocytes % 22.3 Monocytes % 6.0 Eosinophils % 3.0 Basophils % 0.4 Nucleated Red Blood 0.0 Cells % Immature Granulocytes # 0.030 Neutrophils # 6.1 Lymphocytes # 2.0 Monocytes # 0.5 Eosinophils # 0.3 Basophils # 0.0 Nucleated Red Blood 0.0 Cells # Sodium Level 141 Potassium Level 3.8 Chloride Level 113 H Carbon Dioxide Level 21 Anion Gap 7 Blood Urea Nitrogen 48 H Creatinine 3.13 H Est Glomerular Filtrat 20 L Rate mL/min Glucose Level 91 Calcium Level 8.4 Phosphorus Level 4.8 Magnesium Level 1.9 Home Meds Active Scripts Ticagrelor* (Brilinta*) 90 Mg Tablet, 90 MG PO BID for 90 Days, #180 TAB 3 Refills Prov:BHARATH KING MD 07/24/18 Carvedilol* (Carvedilol*) 6.25 Mg Tablet, 6.25 MG PO BID for 60 Days, #120 TAB Prov:BHARATH KING MD 04/13/17 Reported Medications Gabapentin* (Gabapentin*) 600 Mg Tablet, 600 MG PO DAILY, #60 TAB 10/06/18 Insulin Glargine* (Lantus*) 100 Unit/Ml Soln, 12 UNIT SC DAILY, #1 VIAL 04/05/17 Aspirin (Low Dose Aspirin) 81 Mg Tablet.dr, 81 MG PO DAILY, #30 TAB 04/05/17 Atorvastatin Calcium* (Atorvastatin Calcium*) 20 Mg Tablet, 20 MG PO QHS, #30 TAB 04/05/17 Amlodipine Besylate* (Amlodipine Besylate*) 10 Mg Tablet, 10 MG PO DAILY, #30 TAB 04/05/17 Discontinued Reported Medications Insulin Glargine* (Lantus*) 100 Unit/Ml Soln, 12 UNIT SC DAILY, #1 VIAL 10/05/18 Medications Current Medications Aspirin (Halfprin) 81 mg DAILY PO Last administered on 10/07/18at 08:13; Admin Dose 81 MG; Start 10/06/18 at 09:00 Atorvastatin Calcium (Lipitor) 20 mg QHS PO Last administered on 10/07/18at 20:46; Admin Dose 20 MG; Start 10/06/18 at 21:00 Insulin Glargine (Lantus) 30 units DAILY SC Last administered on 10/07/18at 08:14; Admin Dose 30 UNITS; Start 10/05/18 at 22:00 Ticagrelor (Brilinta) 90 mg BID PO Last administered on 10/07/18at 20:58; Admin Dose 90 MG; Start 10/06/18 at 09:00 IV Flush (NS 3 ml) 3 ml PER PROTOCOL IV ; Start 10/05/18 at 22:30 Ondansetron HCl (Zofran Tab) 4 mg Q6H PRN PO NAUSEA/VOMITING; Start 10/05/18 at 22:30 Acetaminophen (Tylenol Tab) 650 mg Q6H PRN PO .PAIN 1-3 OR TEMP Last administered on 10/06/18at 15:39; Admin Dose 650 MG; Start 10/05/18 at 22:30 Docusate Sodium (Colace) 100 mg Q12H PRN PO .CONSTIPATION; Start 10/05/18 at 22:30 Bisacodyl (Dulcolax) 5 mg DAILY PRN PO .CONSTIPATION; Start 10/05/18 at 22:30 Miscellaneous Information 1 ea NOTE XX ; Start 10/05/18 at 22:30 Glucose (Glutose) 15 gm Q15M PRN PO DECREASED GLUCOSE; Start 10/05/18 at 22:30 Glucose (Glutose) 22.5 gm Q15M PRN PO DECREASED GLUCOSE; Start 10/05/18 at 22:30 Dextrose (D50w Syringe) 25 ml Q15M PRN IV DECREASED GLUCOSE; Start 10/05/18 at 22:30 Dextrose (D50w Syringe) 50 ml Q15M PRN IV DECREASED GLUCOSE; Start 10/05/18 at 22:30 Glucagon (Glucagen) 1 mg Q15M PRN IM DECREASED GLUCOSE; Start 10/05/18 at 22:30 Glucose (Glutose) 15 gm Q15M PRN BUCCAL DECREASED GLUCOSE; Start 10/05/18 at 22:30 Hydralazine HCl (Apresoline) 10 mg Q4H PRN IV ELEVATED BLOOD PRESSURE Last administered on 10/06/18at 22:21; Admin Dose 10 MG; Start 10/05/18 at 22:30 Amlodipine Besylate (Norvasc) 10 mg DAILY PO Last administered on 10/07/18at 08:13; Admin Dose 10 MG; Start 10/06/18 at 09:00 Diagnostic Test (Pha) (Accu-Chek) 1 ea 02 XX Last administered on 10/07/18at 02:15; Admin Dose 1 EA; Start 10/07/18 at 02:00 Insulin Aspart (Novolog Insulin Pen) NOVOLOG *MILD* ALGORITHM WITH MEALS BEDTIME SC Last administered on 10/07/18at 20:58; Admin Dose 1 UNIT; Start 10/06/18 at 07:55 Citric Acid/ Sodium Citrate (Bicitra) 30 ml BID PO Last administered on 10/07/18at 20:46; Admin Dose 30 ML; Start 10/07/18 at 09:00 Carvedilol (Coreg) 6.25 mg BID PO Last administered on 10/07/18 20:47; Admin Dose 6.25 MG; Start 10/07/18 at 21:00 Hydralazine HCl (Apresoline) 50 mg TID PO Last administered on 10/07/18at 20:47; Admin Dose 50 MG; Start 10/07/18 at 13:00 Assessment/Plan Hospital Course (Demo Recall) 1. Acute CVA 2. History of severe coronary artery disease 3. History of multiple NonST elevation myocardial infarction 4. History of multivessel PCI 5. Hypertension 6. Chronic kidney disease 7. Diabetes 8. Dyslipidemia 9. History of smoking 10. Obesity 11. History of congestive heart failure currently chronic and stable secondary to diastolic heart failure 12. Bradycardia Recommendation: Continue with aspirin and Brilinta Neurology evaluation and treatment as per neurology recommendations cont Coreg to 6.25 twice daily cont hydralazine Diabetes managed as per internal medicine Follow-up with nephrology recommendation Outpatient cardiology follow-up with his regular knitter wire mesh Dr. Patrick ( for whom I am covering ) Thank you for this referral. We will continue to follow along with you JEANNIE FREITAS MD [facility] JEANNIE FREITAS MD October 08, 2018 08:10
--- NOTE | 2018-10-08 10:26 | PN ---
DATE: 10/08/2018 SUBJECTIVE: The patient is stable, no events overnight. The patient's numbness on her right face, r ight upper extremity is improving. No other acute events noted. OBJECTIVE: VITAL SIGNS: Blood pressure is 150/63, pulse 58, respirations 20, temperature 97.9. HEENT: Head is normocephalic. NECK: Supple. HEART: Regular rate. LUNGS: Show diminished breath sounds at the base. ABDOMEN: Soft, nontender to palpation without rebound or guarding. EXTREMITIES: Negative for clubbing, cyanosis. Trace edema. DERMATOLOGIC: No rashes. MUSCULOSKELETAL: No joint effusion. NEUROLOGIC: No change in exam. MEDICATIONS: The patient's medications have been reviewed. LABORATORY DATA: Reviewed. ASSESSMENT AND PLAN: 1. Nonoliguric acute kidney injury on top of chronic kidney disease stage IV with baseline creatinin e of 3.0 mg/dL. Etiology of acute kidney injury is secondary to hemodynamics. The patient's renal f unction is fluctuating, but overall stable. We will continue current treatment plan, supportive care , renally dose all medicines, defer any SAMANTHA inhibitor at this time. 2. Anemia of chronic disease. Monitor hemoglobin and hematocrit levels. We will give Epogen as nee ded. 3. Mineral bone disorder, monitor calcium and phosphorus levels. Continue phosphate binders. 4. Hypomagnesemia. Continue to monitor and replete. 5. Metabolic acidosis secondary to acute kidney injury and continue to monitor. 6. Coronary artery disease. Continue current treatment plan. 7. Acute cerebrovascular accident. Continue current medical management. The patient's neurological ly improving. 8. Dyslipidemia. Continue statin therapy. 9. History of sleep apnea. Continue CPAP. 10. History of diastolic dysfunction. The patient has noted lower extremity edema. We will continu e to monitor. May consider low dose or intermittent diuretic therapy. Dictated By: GRAEME BRANTD DO NR/NTS Conf#: [id number] DID#: [id number] CC: HAILY CORTES; KEN GOVEA MD; MAI SMITH MD;*EndCC*
--- NOTE | 2018-10-08 10:50 | PDOCDIS ---
Discharge Instructions DIAGNOSIS Discharge Diagnosis Acute thalamic stroke CONDITION [id number] Patient Condition: [id number] Good HOME CARE INSTRUCTIONS: [id number] Diet Instructions: [id number] Low Fat /Cholesterol ACTIVITY: [id number] Activity Restrictions: [id number] No Restrictions FOLLOW UP/APPOINTMENTS Follow-up Plan 1. Take all medications as prescribed. 2. See your primary care doctor in 1-2 weeks. 1. [place] todos los medicamentos segn lo prescrito. 2. Consulte a hurd mdico de atencin primaria en 1-2 semanas. MAI SMITH MD October 08, 2018 10:50
[2018-10-08] MEDS ORDERED: ATOR20TA38 PO (10:51)
--- NOTE | 2018-10-08 15:49 | DS ---
Date/Time of Note Date/Time of Note DATE: 10/08/18 TIME: 15:44 Discharge Summary Admission/Discharge Info Admit Date/Time Oct 05, 2018 at 21:42 Discharge Date/Time October 08, 2018 at 11:40 Discharge Diagnosis Acute thalamic stroke Patient Condition: Good Consults Dr. Canales, neurology Procedures None Hx of Present Illness Chief complaint: Right-sided facial, upper and lower extremity numbness This is a 62-year-old male with coronary disease, hypertension, and diabetes who presents saying "I think I had a stroke". He said that his right face feels asleep and that his right arm are weak and feel numb. The symptoms started yesterday morning and have been constant. Today he also had right leg pain and upper back pain. Patient reports that he does not feel any weakness in his right upper or lower extremity. Denies any slurred speech. He does report his blood pressure has been elevated. He states the right now he has not been on amlodipine as he did not get any refills from his primary care doctor. He denies any chest pain or palpitations. Denies any recent use of smoking or illicit drug use or alcohol. Allergies: NKDA Medications: See MAR Hospital Course The patient's R sided weakness resolved soon after admission but R sided face and body numbness remained without significant improvement. He got MRI significant for acute thalamic stroke. Seen by PT, ST and OT without significant deficits, no assistive devices needed. The patient was already on aspirin and atorvastatin 20. He will be discharged on atorvastatin 80. Home Meds Active Scripts Atorvastatin Calcium* (Atorvastatin Calcium*) 20 Mg Tablet, 80 MG PO QHS, #30 TAB Prov:MAI SMITH MD 10/08/18 Ticagrelor* (Brilinta*) 90 Mg Tablet, 90 MG PO BID for 90 Days, #180 TAB 3 Refills Prov:BHARATH KING MD 07/24/18 Carvedilol* (Carvedilol*) 6.25 Mg Tablet, 6.25 MG PO BID for 60 Days, #120 TAB Prov:BHARATH KING MD 04/13/17 Reported Medications Gabapentin* (Gabapentin*) 600 Mg Tablet, 600 MG PO DAILY, #60 TAB 10/06/18 Insulin Glargine* (Lantus*) 100 Unit/Ml Soln, 12 UNIT SC DAILY, #1 VIAL 04/05/17 Aspirin (Low Dose Aspirin) 81 Mg Tablet.dr, 81 MG PO DAILY, #30 TAB 04/05/17 Amlodipine Besylate* (Amlodipine Besylate*) 10 Mg Tablet, 10 MG PO DAILY, #30 TAB 04/05/17 Discontinued Reported Medications Insulin Glargine* (Lantus*) 100 Unit/Ml Soln, 12 UNIT SC DAILY, #1 VIAL 10/05/18 Follow-up Plan 1. Take all medications as prescribed. 2. See your primary care doctor in 1-2 weeks. 1. [place] todos los medicamentos segn lo prescrito. 2. Consulte a hurd mdico de atencin primaria en 1-2 semanas. Primary Care Provider Joyce Schreiber MD Time spent on discharge: > 30 minutes Pending Labs Laboratory Tests Test 10/07/18 18:03 10/07/18 20:49 10/08/18 03:30 10/08/18 06:05 Bedside 82 188 84 Glucose mg/dL (70-220) mg/dL (70-220) mg/dL (70-220) White Blood 9.0 Count 10^3/ul (4.8-1 0.8) Red Blood 3.39 Count 10^6/ul (4.70- 6.10) Hemoglobin 9.2 g/dl (14.0-18. 0) Hematocrit 28.6 % (42.0-52.0) Mean 84.4 Corpuscular fl (82.0-101.0 Volume ) Mean 27.1 Corpuscular pg (29.0-33.0) Hemoglobin Mean 32.2 Corpuscular g/dl (32.0-37. Hemoglobin Conc 0) ent Red Cell 14.0 Distribution % (11.5-14.5) Width Platelet Count 232 10^3/UL (140-4 15) Mean Platelet 10.4 Volume fl (7.4-10.4) Immature 0.300 Granulocytes % % (0.001-0.429 ) Neutrophils % 68.0 % (39.0-77.0) Lymphocytes % 22.3 % (15.0-51.0) Monocytes % 6.0 % (0.0-11.0) Eosinophils % 3.0 % (0.0-7.0) Basophils % 0.4 % (0.0-2.0) Nucleated Red 0.0 Blood Cells % /100WBC (0.0-0 .0) Immature 0.030 Granulocytes # 10^3/ul (0.0-0 .031) Neutrophils # 6.1 10^3/ul (1.6-7 .5) Lymphocytes # 2.0 10^3/ul (0.8-2 .9) Monocytes # 0.5 10^3/ul (0.3-0 .9) Eosinophils # 0.3 10^3/ul (0.0-0 .5) Basophils # 0.0 10^3/ul (0.0-0 .1) Nucleated Red 0.0 Blood Cells # 10^3/ul (0.0-0 .0) Sodium Level 141 mmol/L (135-14 4) Potassium 3.8 Level mmol/L (3.5-5. 1) Chloride Level 113 mmol/L (97-110 ) Carbon Dioxide 21 Level mmol/L (21-31) Anion Gap 7 (5-13) Blood Urea 48 Nitrogen mg/dl (7-20) Creatinine 3.13 mg/dl (0.61-1. 24) Est Glomerular 20 Filtrat mL/min (>60) Rate mL/min Glucose Level 91 mg/dl (70-220) Calcium Level 8.4 mg/dl (8.4-10. 2) Phosphorus 4.8 Level mg/dl (2.5-4.9 ) Magnesium 1.9 Level mg/dl (1.7-2.5 ) Test 10/08/18 07:52 Bedside 82 Glucose mg/dL (70-220) MAI SMITH MD October 08, 2018 15:49
--- NOTE | 2018-10-09 13:03 | CONS ---
Assessment/Plan Assessment/Plan Hospital Course 62 yo M with multiple cerebrovascular risk factors who presents for evaluation of R face/arm/leg numbness... for which neurology is consulted. The clinical picture is most ominously concerning for L thalamic stroke, likely in the context of uncontrolled HTN Recrudescence is unlikely. MRI brain is notable for 2 L thalamic lacunar infarcts. MRA H/N is notable for L M2 segment stenosis. CUS is notable for moderate b/l cervical ICA stenosis Echo is unrevealing. LDL 60 UA/UDS neg P: Cont ASA daily for secondary stroke prevention for now; LDL is at goal Continued medical management and supportive care per primary PT/OT/ST as necessary Will follow clinically Consultation Date/Type/Reason Admit Date/Time Oct 05, 2018 at 21:42 Type of Consult Neurology Reason for Consultation R side numbness/weakness Requesting Provider: KEN GOVEA Date/Time of Note DATE: 10/08/18 TIME: 13:02 24 HR Interval Summary Free Text/Dictation Continues acute care. Pt is without complaints at this time. Awaiting discharge. Exam Vital Signs Vitals Vital Signs Date Temp Pulse Resp B/P (MAP) Pulse Ox O2 O2 Flow FiO2 Time Delivery Rate 10/08/18 98.5 68 20 129/63 96 Room Air 11:15 (85) Exam PE: Gen Appearance: No Apparent Distress HEENT: Normocephalic Cardiovascular: Regular rate Lungs: Clear bilaterally Abdomen: Soft Extremities: Dry NE: The patient was alert and oriented. Language was normal. Fund of knowledge was normal. Pupils were equal and reactive to light. There was no afferent pupillary defect. Visual alvarenga were normal. Funduscopic examination was limited. Extra-ocular movements were full. Ptosis was absent. There was no nystagmus. Facial sensation was normal. Face was symmetric with normal strength. Hearing was intact. Palate movements were normal. Neck strength was normal. There was normal tongue bulk and speed of movement. Tone was normal. Muscle bulk was normal. I did not see fasciculations. Arms and legs were strong to confrontation. Vibration sensation, temperature and pinprick sensation was diminished on the R. Rapid alternating movements were normal. There was no dysmetria. There was no intention tremor. Gait was deferred due to bedrest. Arm and leg reflexes were symmetric. May's sign was absent. Plantar responses were flexor. JAMIE,FROY SEED LABORATORY ASSISTANT October 09, 2018 13:03
== END 2018-10-08 11:40 | disposition home or self-care (01) | DRG 65 ==
LOC: E/R 17:35 → TEL 21:42
PROVIDERS: ADMIT Family Medicine; ATTEND Internal Medicine
DX: I63.9 Cerebral infarction, unspecified (principal); N18.4 Chronic kidney disease, stage 4 (severe); E87.2 Acidosis; N17.9 Acute kidney failure, unspecified; I13.0 Hypertensive heart and chronic kidney disease with heart failure and stage 1 through stage 4 chronic kidney disease, or unspecified chronic kidney disease; I50.32 Chronic diastolic (congestive) heart failure; E11.22 Type 2 diabetes mellitus with diabetic chronic kidney disease; E83.42 Hypomagnesemia; I25.10 Atherosclerotic heart disease of native coronary artery without angina pectoris; D63.1 Anemia in chronic kidney disease; E78.5 Hyperlipidemia, unspecified; G47.33 Obstructive sleep apnea (adult) (pediatric); R00.1 Bradycardia, unspecified; E66.9 Obesity, unspecified; Z68.33 Body mass index [BMI] 33.0-33.9, adult; I25.2 Old myocardial infarction; Z95.5 Presence of coronary angioplasty implant and graft; Z87.891 Personal history of nicotine dependence; Z79.4 Long term (current) use of insulin; I69.392 Facial weakness following cerebral infarction
CPT/HCPCS: 36415; 70450; 70544; 70549; 70551; 71045; 72141; 80048; 80053; 80061; 80307; 81001; 82962; 83036; 83735; 84100; 84443; 84484; 85025; 85610; 85651; 85730; 86592; 92610; 93005; 93306; 93880; 97161; 97167; J0360; J1815; J3475